=== PATIENT | male | born 1960 | race African-American/Black ===

== ENCOUNTER 2018-05-11 18:54 | Emergency (ER) | payer MEDICARE, OTHER ==
[~2018-05-11] VITALS: Ht 172.7 cm; Wt 113.7 kg
[~2018-05-11 18:54] MED LIST: CIPROFLOXACIN500 MG PO; FAMOTIDINE20 MG PO; FINASTERIDE5 MG PO; FLUCONAZOLE50 MG PO; METOPROLOL TART25 MG PO; MYCOPHENOLATE250 MG PO; OXYCODONE HCL5 MG PO; PREDNISONE5 MG PO; SIMETHICONE80 MG PO; TACROLIMUS1 MG PO; TAMSULOSIN HCL0.4 MG PO; TYLENOL EXTRA500 MG PO; VALGANCICLOVIR450 MG PO
[2018-05-11] MEDS ORDERED: LIPITOR10 MG PO (19:59)
[2018-05-11] MEDS ORDERED: VITAMIN D-32000 UNIT PO (19:59)
[2018-05-11] MEDS ORDERED: ALLOPURINOL100 MG PO (19:59)
[2018-05-11] MEDS ORDERED: SENSIPAR60 MG PO (20:00)
[2018-05-11] MEDS ORDERED: DILTIAZEM 24HR120 MG PO (20:01)
[2018-05-11] MEDS ORDERED: PROSCAR5 MG PO (20:01)
[2018-05-11] MEDS ORDERED: FLUCONAZOLE50 MG PO (20:02)
[2018-05-11] MEDS ORDERED: GLIPIZIDE ER5 MG PO (20:02)
[2018-05-11] MEDS ORDERED: PRINIVIL20 MG PO (20:03)
[2018-05-11] MEDS ORDERED: MAGNESIUM CHLOR64 MG PO (20:04)
[2018-05-11] MEDS ORDERED: METOPROLOL SUC100 MG PO (20:05)
[2018-05-11] MEDS ORDERED: PREDNISONE20 MG PO (20:06)
[2018-05-11] MEDS ORDERED: CELLCEPT250 MG PO (20:06)
[2018-05-11] MEDS ORDERED: OMEPRAZOLE20 MG PO (20:06)
[2018-05-11] MEDS ORDERED: PROGRAF1 MG PO (20:07)
[2018-05-11] MEDS ORDERED: FLOMAX0.4 MG PO (20:07)
--- NOTE | 2018-05-12 07:49 | EKG ---
[facility] [address] [facility] [place] [address] Signed Undetermined rhythm Nonspecific intraventricular conduction delay ST elevation, consider inferior injury or acute infarct ACUTE AK / STEMI Consider right ventricular involvement in acute inferior infarct Abnormal ECG When compared with ECG of 06-APR-2016 05:40, Significant changes have occurred Confirmed by JILLIAN SANDOVAL MD ([id number]) on 05/12/2018 7:49:17 AM Electronically Signed By: JILLIAN SANDOVAL MD 05/12/18 0749 PATIENT NAME: RERE WISDOM Electrocardiogram DATE OF : 58 PHYSICIAN: JILLIAN SANDOVAL MD REPORT #: [id number] REPORT IS CONFIDENTIAL AND NOT TO BE RELEASED WITHOUT AUTHORIZATION
== END 2018-05-11 22:25 | disposition home or self-care (01) ==
LOC: ED 18:54
DX: I47.1 Supraventricular tachycardia (principal); I10 Essential (primary) hypertension; E11.9 Type 2 diabetes mellitus without complications; N19 Unspecified kidney failure; Z94.0 Kidney transplant status; Z79.899 Other long term (current) drug therapy; Z79.84 Long term (current) use of oral hypoglycemic drugs; Z79.52 Long term (current) use of 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
CPT/HCPCS: 71045; 80053; 81001; 84100; 85025; 93005; 93010; 96361; 96374; 99284-25; J0153; J7030

== ENCOUNTER 2018-06-04 09:27 | Emergency (ER) | payer MEDICARE, OTHER ==
[~2018-06-04] VITALS: Ht 175.3 cm; Wt 111.6 kg
[~2018-06-04 09:27] MED LIST changes: +ALLOPURINOL100 MG PO; +CELLCEPT250 MG PO; +DILTIAZEM 24HR120 MG PO; +FLOMAX0.4 MG PO; +GLIPIZIDE ER5 MG PO; +LIPITOR10 MG PO; +MAGNESIUM CHLOR64 MG PO; +METOPROLOL SUC100 MG PO; +OMEPRAZOLE20 MG PO; +PREDNISONE20 MG PO; +PRINIVIL20 MG PO; +PROGRAF1 MG PO; +PROSCAR5 MG PO; +SENSIPAR60 MG PO; +VITAMIN D-32000 UNIT PO
--- OUTSIDE RECORDS SUMMARY | 2018-06-04 09:32 | XMS ---
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 E.DMaycol VISIT COUNT (12 MO.) 2 [facility]РИ[facility] [place] TOTAL 2 NOTE: Visits indicate total known visits. ED/UCC VISIT TRACKING (12 MO.) 06/04/2018 09:27 [facility] [place] TYPE: Emergency COMPLAINT: - FACE SWELLING/NO INJURY 05/11/2018 18:55 [facility] [place] TYPE: Emergency COMPLAINT: - KIDNEY PAIN DIAGNOSES: - residential (current) use of 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 - Type 2 diabetes mellitus without complications - Epigastric pain - Kidney transplant status - Other correction (current) drug therapy - Abdominal distension (gaseous) - Unspecified kidney failure - residential (current) use of oral hypoglycemic drugs - Supraventricular tachycardia - Essential (primary) hypertension INPATIENT VISIT TRACKING (12 MO.) No inpatient visits to display in this time frame [email or web address]
[2018-06-04] MEDS ORDERED: PENICILLIN V P500 MG PO (12:21)
== END 2018-06-04 12:58 | disposition home or self-care (01) ==
LOC: ED 09:27
DX: K04.7 Periapical abscess without sinus (principal); I12.9 Hypertensive chronic kidney disease with stage 1 through stage 4 chronic kidney disease, or unspecified chronic kidney disease; N19 Unspecified kidney failure; Z94.0 Kidney transplant status; E11.9 Type 2 diabetes mellitus without complications; Z79.52 Long term (current) use of 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; Z79.899 Other long term (current) drug therapy
CPT/HCPCS: 70486; 80053; 83605; 85025; 96374; 99283-25; J0690

== ENCOUNTER 2018-06-11 08:02 | Inpatient (IN) | payer MEDICARE, OTHER ==
[~2018-06-11] VITALS: Ht 175.3 cm; Wt 107.4 kg
[~2018-06-11 08:02] MED LIST changes: +PENICILLIN V P500 MG PO
--- OUTSIDE RECORDS SUMMARY | 2018-06-11 08:06 | XMS ---
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 05/16/2018-Current PHONE: [phone] Alphonse Stewart Current PHONE: Unknown FRANCISCO MITCHELL Primary Care Current PHONE: Unknown Lazaro has no Care Guidelines for this patient. E.DMaycol VISIT COUNT (12 MO.) 3 ЕКАТЕРИНА [place] TOTAL 3 NOTE: Visits indicate total known visits. ED/UCC VISIT TRACKING (12 MO.) 06/11/2018 08:03 [facility] [place] TYPE: Emergency COMPLAINT: - RACING HEART 06/04/2018 09:27 [facility] [place] TYPE: Emergency COMPLAINT: - FACE SWELLING/NO INJURY DIAGNOSES: - Type 2 diabetes mellitus without complications - Periapical abscess without sinus - Localized swelling, mass and lump, head - alf (current) use of 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 - Other oysterman (current) drug therapy - Hypertensive chronic kidney disease with stage 1 through stage 4 chronic kidney disease, or unspecified chronic kidney disease - Kidney transplant status - Unspecified kidney failure 05/11/2018 18:[address] [facility] [place] TYPE: Emergency COMPLAINT: - KIDNEY PAIN DIAGNOSES: - alf (current) use of 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 - Type 2 diabetes mellitus without complications - Epigastric pain - Kidney transplant status - Other oysterman (current) drug therapy - Abdominal distension (gaseous) - Unspecified kidney failure - alf (current) use of oral hypoglycemic drugs - Supraventricular tachycardia - Essential (primary) hypertension INPATIENT VISIT TRACKING (12 MO.) No inpatient visits to display in this time frame [email or web address]
[2018-06-11] MEDS ORDERED: TOPROL XL100 MG PO (11:23)
--- NOTE | 2018-06-11 15:52 | EKG ---
[facility] [address] [facility] [place] [address] Signed Sinus rhythm with premature atrial complexes Possible Left atrial enlargement Left ventricular hypertrophy Abnormal ECG When compared with ECG of 11-JUN-2018 08:06, (Unconfirmed) Significant changes have occurred Confirmed by JILLIAN SANDOVAL MD ([id number]) on 06/11/2018 3:52:16 PM Electronically Signed By: JILLIAN SANDOVAL MD 06/11/18 1552 PATIENT NAME: RERE WISDOM Electrocardiogram DATE OF : 58 PHYSICIAN: JILLIAN SANDVOAL MD REPORT #: [id number] REPORT IS CONFIDENTIAL AND NOT TO BE RELEASED WITHOUT AUTHORIZATION
--- NOTE | 2018-06-11 15:52 | EKG ---
[facility] [address] [facility] [place] [address] Signed Sinus tachycardia with short AL Nonspecific intraventricular block ST elevation, consider early repolarization, pericarditis, or injury Abnormal ECG When compared with ECG of 11-MAY-2018 19:16, Previous ECG has undetermined rhythm, needs review T wave inversion less evident in Lateral leads Confirmed by JILLIAN SANDOVAL MD ([id number]) on 06/11/2018 3:51:51 PM Electronically Signed By: JILLIAN SANDOVAL MD 06/11/18 1552 PATIENT NAME: RERE WISDOM Electrocardiogram DATE OF : 58 PHYSICIAN: JILLIAN SANDOVAL MD REPORT #: [id number] REPORT IS CONFIDENTIAL AND NOT TO BE RELEASED WITHOUT AUTHORIZATION
[2018-06-11] MEDS ORDERED: PREDNISONE5 MG PO (16:19)
== END 2018-06-12 12:30 | disposition home or self-care (01) | DRG 308 ==
LOC: ED 08:02 → CCU 14:44
PROVIDERS: ADMIT Internal Medicine
DX: I47.1 Supraventricular tachycardia (principal); N18.6 End stage renal disease; I16.1 Hypertensive emergency; Z94.0 Kidney transplant status; I24.8 Other forms of acute ischemic heart disease; I13.11 Hypertensive heart and chronic kidney disease without heart failure, with stage 5 chronic kidney disease, or end stage renal disease; E83.42 Hypomagnesemia; E11.9 Type 2 diabetes mellitus without complications; I27.20 Pulmonary hypertension, unspecified; R33.9 Retention of urine, unspecified; Z91.14 Patient's other noncompliance with medication regimen; Z79.84 Long term (current) use of oral hypoglycemic drugs; Z79.52 Long term (current) use of 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; Z79.899 Other long term (current) drug therapy
CPT/HCPCS: 36415; 80048; 80053; 83735; 84484; 85025; 93005; 93010; 96365; 96375; 96376; 99285-25; J1815; J3475; J7060; J7512

== ENCOUNTER 2019-05-09 22:13 | Inpatient (IN) | payer MEDICARE, OTHER ==
[~2019-05-09] VITALS: Ht 172.7 cm; Wt 100.2 kg
--- OUTSIDE RECORDS SUMMARY | ~2019-05-09 | XMS | Encounter Summary ---
Demographics + + + | Address | [address] | | | [place] [address] | + + + | Home Phone | | + + + | Preferred Language | Unknown | + + + | Marital Status | Single | + + + | Anabaptism Affiliation | Unknown | + + + | Race | Black or | + + + | Ethnic Group | Not or | + + + Author + + + | Author | [facility] | + + + | Organization | [facility] | + + + | Address | Unknown | + + + | Phone | Unavailable | + + + Support + + +---------+ + | Name | Relationship | Address | Phone | + + +---------+ + | Olesya Lamb | ECON | Unknown | | + + +---------+ + Care Team Providers + +------+ + | Care Oil Pipeline Operator Name | Role | Phone | + +------+ + | Oziel Michael MD | PCP | | + +------+ + Encounter Details +--------+ + + + + | Date | Type | Department | Care Team | Description | +--------+ + + + + | 04/04/ | Lab | LAB IMMUNOGENETIC | | | | 2018 | Requisition | [facility] | | | | | | [address] | | | | | | [place], | | | | | | [place] [address] | | | +--------+ + + + + Social History + +-------+ +--------+------+ | Tobacco Use | Types | Packs/Day | Years | Date | | | | | Used | | + +-------+ +--------+------+ | Never Smoker | | | | | + +-------+ +--------+------+ + +---+---+---+ | Smokeless Tobacco: | | | | | Never Used | | | | + +---+---+---+ + + +---------+ + | Alcohol Use | Drinks/Week | oz/Week | Comments | + + +---------+ + | No | | | | + + +---------+ + + + + | Sex Assigned at | Date Recorded | | | | + + + | Not on file | | + + + + + + + | Job Start Date | Occupation | Industry | + + + + | Not on file | Not on file | Not on file | + + + + + + + + | Travel History | Travel Start | Travel End | + + + + + + | No recent travel history available. | + + documented as of this encounter Plan of Treatment Not on filedocumented as of this encounter Procedures + +--------+ + + + | Procedure Name | Priori | Date/Time | Associated Diagnosis | Comments | | | ty | | | | + +--------+ + + + | CLASS I & II ID | Routin | 04/03/2018 | | Results for this | | | e | 12:00 AM | | procedure are in the | | | | PST | | results section. | + +--------+ + + + | LIT FLOW HLA II AB | Routin | 04/03/2018 | | | | AG ID, BLOOD | e | 12:00 AM | | | | | | PST | | | + +--------+ + + + | LIT FLOW HLA I AB AG | Routin | 04/03/2018 | | Results for this | | ID, BLOOD | e | 12:00 AM | | procedure are in the | | | | PST | | results section. | + +--------+ + + + documented in this encounter Results LIT FLOW HLA II AB AG ID, BLOOD (04/03/2018 12:00 AM PST) + + | Specimen | + + | Blood - Blood | | (substance) | + + + + + + + | Performing | Address | City/State/Zipcode | Phone Number | | Organization | | | | + + + + + | [facility] - | [address] | [place] [address] | | | IMMUNOGENETICS/TRANS | [address] | | | | [facility] | | | | + + + + + LIT FLOW HLA I AB AG ID, BLOOD (04/03/2018 12:00 AM PST) + + + + + + | Component | Value | Ref Range | Performed | Pathologist | | | | | At | Signature | + + + + + + | LABEL ONLY | Please see lab report | | [facility] - | | | - LIT | for result. | | IMMUNOGENET | | | | | | ICS/TRANSPL | | | | | | ANT | | | | | | LABORATORY | | + + + + + + + + | Specimen | + + | Blood - Blood | | (substance) | + + + + + + + | Performing | Address | City/State/Zipcode | Phone Number | | Organization | | | | + + + + + | [facility] - | [address] | [place] [address] | | | IMMUNOGENETICS/TRANS | [address] | | | | [facility] | | | | + + + + + documented in this encounter Visit Diagnoses Not on filedocumented in this encounter"
--- OUTSIDE RECORDS SUMMARY | ~2019-05-09 | XMS | Encounter Summary ---
Demographics + + + | Address | [address] | | | [place] [address] | + + + | Home Phone | | + + + | Preferred Language | Unknown | + + + | Marital Status | Unknown | + + + | Yarsanism Affiliation | Unknown | + + + | Race | Unknown | + + + | Ethnic Group | Unknown | + + + Author + + + | Author | [facility] | | | and [place] | + + + | Organization | [facility] | | | and [place] | + + + | Address | Unknown | + + + | Phone | Unavailable | + + + Support + + +---------+ + | Name | Relationship | Address | Phone | + + +---------+ + | Olesya Lamb | ECON | Unknown | | + + +---------+ + | Fannycedric Peace | ECON | Unknown | | + + +---------+ + Care Team Providers + +------+ + | Care Woodworking Machinist Name | Role | Phone | + +------+ + PCP | Unavailable | + +------+ + Encounter Details +--------+ + + + + | Date | Type | Department | Care Team | Description | +--------+ + + + + | 12/05/ | Orders Only | [facility] | Conversion | | | 2018 | | NEPRHOLOGY [place] | Transaction, | | | | | [address] | Provider Unknown | | | | | [address] [place], [place] | | | | | | [address] | | | | | | [phone] | | | +--------+ + + + + Social History + +-------+ +--------+------+ | Tobacco Use | Types | Packs/Day | Years | Date | | | | | Used | | + +-------+ +--------+------+ | Never Smoker | | | | | + +-------+ +--------+------+ + + + | Sex Assigned at [...] as of this encounter Plan of Treatment +--------+---------+ + + + | Date | Type | Specialty | Care Team | Description | +--------+---------+ + + + | 05/20/ | Office | Nephrology | Alexx Gutierrez MD | | | 2019 | Visit | | [address] [facility] | | | | | | [address] [place], [place] | | | | | | [address] | | | | | | | | +--------+---------+ + + + documented as of this encounter Procedures + +--------+ + + + | Procedure Name | Priori | Date/Time | Associated Diagnosis | Comments | | | ty | | | | + +--------+ + + + | EXTERNAL LAB: | Routin | 12/05/2018 | | Results for this | | TACROLIMUS LEVEL, | e | 12:00 AM | | procedure are in the | | LC-MS/MS | | PDT | | results section. | + +--------+ + + + documented in this encounter Results External Lab: Tacrolimus Level, LC-MS/MS (12/05/2018 12:00 AM PDT) + +-------+ + + + | Component | Value | Ref Range | Performed | Pathologist | | | | | At | Signature | + +-------+ + + + | Tacrolimus | 8.0 | | EXTERNAL | | | Level | | | LAB | | + +-------+ + + + | Date of | | | EXTERNAL | | | Last Dose | | | LAB | | + +-------+ + + + | Time of | | | EXTERNAL | | | Last Dose | | | LAB | | + +-------+ + + + + + | Specimen | + + | Blood specimen | | (specimen) | + + + +---------+ + + | Performing | Address | City/State/Zipcode | Phone Number | | Organization | | | | + +---------+ + + | EXTERNAL LAB | | | | + +---------+ + + documented in this encounter Visit Diagnoses Not on filedocumented in this encounter"
--- OUTSIDE RECORDS SUMMARY | ~2019-05-09 | XMS | Encounter Summary ---
Demographics + + + | Address | [address] | | | [place] [address] | + + + | Home Phone | | + + + | Preferred Language | Unknown | + + + | Marital Status | Unknown | + + + | Advent Affiliation | Unknown | + + + | Race | Unknown | + + + | Ethnic Group | Unknown | + + + Author + + + | Author | [facility] | | | and [place] | + + + | Organization | [facility] | | | and [...] Team Providers + +------+ + | Care Waterside Worker Name | Role | Phone | + +------+ + PCP | Unavailable | + +------+ + Encounter Details +--------+ + + + + | Date | Type | Department | Care Team | Description | +--------+ + + + + | 08/07/ | Orders Only | [facility] | Alexx Gutierrez MD | | | 2018 | | NEPHROLOGY [place] | [address] [place] | | | | | [address] [place] | [address] [place], [place] | | | | | [address] [place], [place] | [address] | | | | | [address] | | | | | | [phone] | | | +--------+ + + + + Social History + +-------+ +--------+------+ | Tobacco Use | Types | Packs/Day | Years | Date | | | | | Used | | + +-------+ +--------+------+ | Never Assessed | | | | | + +-------+ [...] 2019 | Visit | | [address] [facility] | | | | | | [address] [facility] | | | | | | [address] | | | | | | | | +--------+---------+ + + + documented as of this encounter Procedures + +--------+ + + + | Procedure Name | Priori | Date/Time | Associated Diagnosis | Comments | | | ty | | | | + +--------+ + + + | EXTERNAL LAB: CBC | Routin | 08/07/2018 | | Results for this | | | e | 9:43 AM | | procedure are in the | | | | PDT | | results section. | + +--------+ + + + | RENAL FUNCTION PANEL | Routin | 08/07/2018 | | Results for this | | | e | 9:43 AM | | procedure are in the | | | | PDT | | results section. | + +--------+ + + + documented in this encounter Results External Lab: CBC (08/07/2018 9:43 AM PDT) + + + + + + | Component | Value | Ref Range | Performed | Pathologist | | | | | At | Signature | + + + + + + | WBC | 2.8 (A) | 4.5 - 11.0 10 | EXTERNAL | | | | | | LAB | | + + + + + + | RED CELL | 4.69 | 4.3 - 5.7 10 | EXTERNAL | | | COUNT | | | LAB | | + + + + + + | Hgb | 12.8 (A) | 13.5 - 18.0 | EXTERNAL | | | | | g/dL | LAB | | + + + + + + | Hematocrit, | 40.0 (A) | 41 - 50 % | EXTERNAL | | | POC | | | LAB | | + + + + + + | MCV | 85.4 | 81 - 99 fL | EXTERNAL | | | | | | LAB | | + + + + + + | MCH | 27 | 27 - 33 pg | EXTERNAL | | | | | | LAB | | + + + + + + | MCHC | 32 | 30 - 36 g/dL | EXTERNAL | | | | | | LAB | | + + + + + + | Platelet | 175 | 140 - 440 K/ L | EXTERNAL | | | Count | | | LAB | | | Plasma | | | | | + + + + + + | RDW-CV | 15.6 (A) | 10.5 - 15.0 % | EXTERNAL | | | | | | LAB | | + + + + + + | MPV | | fL | EXTERNAL | | | | | | LAB | | + + + + + + | Differentia | | | EXTERNAL | | | l Type | | | LAB | | + + + + + + | % Segmented | 43.3 | 39 - 80 % | EXTERNAL | | | | | | LAB | | | Neutrophils | | | | | + + + + + + | % | 41.4 | 24 - 44 % | EXTERNAL | | | Lymphocytes | | | LAB | | + + + + + + | % Monocytes | 12.7 (A) | 0 - 12 % | EXTERNAL | | | | | | LAB | | + + + + + + | % | 1.4 | 0 - 6 % | EXTERNAL | | | Eosinophils | | | LAB | | + + + + + + | % Basophils | 1.2 | 0 - 2 % | EXTERNAL | | | | | | LAB | | + + + + + + | Absolute | | / L | EXTERNAL | | | Segmented | | | LAB | | | Neutrophils | | | | | + + + + + + | Absolute | | / L | EXTERNAL | | | Lymphocytes | | | LAB | | + + + + + + | Absolute | | / L | EXTERNAL | | | Monocytes | | | LAB | | + + + + + + | Absolute | | / L | EXTERNAL | | | Eosinophils | | | LAB | | + + + + + + | Absolute | | / L | EXTERNAL | | | Basophils | | | LAB | | + + + + + + + + | Specimen | + + | Blood specimen | | (specimen) | + + + +---------+ + + | Performing | Address | City/State/Zipcode | Phone Number | | Organization | | | | + +---------+ + + | EXTERNAL LAB | | | | + +---------+ + + Renal Function Panel (08/07/2018 9:43 AM PDT) + + + + + + | Component | Value | Ref Range | Performed | Pathologist | | | | | At | Signature | + + + + + + | Glucose, | 154 (A) | 70 - 100 mg/dL | EXTERNAL | | | Fasting | | | LAB | | + + + + + + | BUN | 27 (A) | 6 - 23 mg/dL | EXTERNAL | | | | | | LAB | | + + + + + + | Creatinine | 1.48 (A) | 0.70 - 1.33 | EXTERNAL | | | | | mg/dL | LAB | | + + + + + + | PHOSPHORUS | 3.7 | 2.5 - 5.0 mg/dL | EXTERNAL | | | | | | LAB | | + + + + + + | Albumin | 3.2 (A) | 3.5 - 5.0 | EXTERNAL | | | | | | LAB | | + + + + + + | Na | 140 | 132 - 143 | EXTERNAL | | | | | mmol/L | LAB | | + + + + + + | K | 4.3 | 3.6 - 5.1 | EXTERNAL | | | | | mmol/L | LAB | | + + + + + + | Cl | 104 | 95 - 112 mmol/L | EXTERNAL | | | | | | LAB | | + + + + + + | CO2 | 25 | 19 - 31 mmol/L | EXTERNAL | | | | | | LAB | | + + + + + + | Anion Gap | 15.3 | 7 - 21 mmol/L | EXTERNAL | | | | | | LAB | | + + + + + + | eGFR if not | | | EXTERNAL | | | | | | LAB | | | BURMESE | | | | | + + + + + + | Phosphorus, | | | EXTERNAL | | | Inorganic | | | LAB | | + + + + + + | BUN/Creatin | 18.2 | 6.0 - 28.6 | EXTERNAL | | | ine Ratio | | | LAB | | + + + + + + | Calcium | 8.3 (A) | 8.5 - 10.3 | EXTERNAL | | | | | mg/dL | LAB | | + + + + + + | Estimated | 49 (A) | 60 - 140 mg/dL | EXTERNAL | | | GFR | | | LAB | | + + + + + [...]
--- OUTSIDE RECORDS SUMMARY | ~2019-05-09 | XMS | Encounter Summary ---
Demographics + + + | Address | [address] | | | [place] [address] | + + + | Home Phone | | + + + | Preferred Language | Unknown | + + + | Marital Status | Unknown | + + + | Temple Affiliation | Unknown | + + + | Race | Unknown | + + + | Ethnic Group | Unknown | + + + Author + + + | Author | [facility] | | | and [place] | + + + | Organization | [facility] | | | and [place] | + + + | Address | Unknown | + + + | Phone | Unavailable | + + + Support + + +---------+ + | Name | Relationship | Address | Phone | + + +---------+ + | Olesyacedric Lamb | ECON | Unknown | | + + +---------+ + | Fanny Peace | ECON | Unknown | | + + +---------+ + Care Team Providers + +------+ + | Care Train Controller Name | Role | Phone | + +------+ + | Oziel Michael MD | PCP | | + +------+ + Reason for Visit + + + | Reason | Comments | + + + | Medication Refill | | + + + Encounter Details +--------+--------+ + + + | Date | Type | Department | Care Team | Description | +--------+--------+ + + + | 03/06/ | Refill | [facility] | Alexx Gutierrez MD | Medication Refill | | 2019 | | NEPHROLOGY [place] | [address] [facility] | | | | | [address] [facility] | [address] [place], [place] | | | | | [facility] [address] | [phone] | | | | | [place], [place] | | | | | | [address] | | | | | | [phone] | | | +--------+--------+ + + + Social History + +-------+ [...] Comments | + + +---------+ + | Not Currently | | | | + + +---------+ [...] | Alexx Gutierrez MD | | | 2020 | Visit | | [address] [facility] | | | | | | [address] [place] | | | | | | [address] | | | | | | | | +--------+---------+ + + + documented as of this encounter Visit Diagnoses + + | Diagnosis | + + | Essential hypertension, benign - Primary | + + | Persistent proteinuria Proteinuria | + + | Kidney replaced by transplant | + + | CKD (chronic kidney disease), stage III (HCC) Chronic kidney disease, Stage III | | (moderate) | + + | Immunosuppression (HCC) Unspecified disorder of immune mechanism | + + | Immunosuppressive management encounter following kidney transplant Encounter for | | long-term (current) use of other medications | + + documented in this encounter"
--- OUTSIDE RECORDS SUMMARY | ~2019-05-09 | XMS | Encounter Summary ---
Demographics + + + | Address | [address] | | | [place] [address] | + + + | Home Phone | | + + + | Preferred Language | Unknown | + + + | Marital Status | Single | + + + | Denominational Affiliation | Unknown | + + + | Race | Black or | + + + | Ethnic Group | Not or | + + + Author + + + | Author | [facility] | + + + | Organization | [facility] | + + + | Address | Unknown | + + + | Phone | Unavailable | + + + Support + + +---------+ + | Name | Relationship | Address | Phone | + + +---------+ + | Olesya Lamb | ECON | Unknown | | + + +---------+ + Care Team Providers + +------+ + | Care Magazine Worker Name | Role | Phone | + +------+ + | Oziel Michael MD | PCP | | + +------+ + Encounter Details +--------+ + + + + | Date | Type | Department | Care Team | Description | +--------+ + + + + | 09/17/ | Ancillary | LAB IMMUNOGENETIC | | | | 2012 | Orders | [facility] TRANSPLANT LAB | | | | | | [address] | | | | | | [address] [place], | | | | | | [place] [address] | | | +--------+ + + + [...] + + + | LIT FLOW HLA AB PRA | Routin | 09/17/2012 | | | | SCREEN I/II | e | 3:39 PM | | | | | | PDT | | | + +--------+ + + + documented in this encounter Results LIT FLOW HLA AB PRA SCREEN I/II (09/17/2012 3:39 PM PDT) + + | Specimen | + + | Blood - Blood | + + + + + + + | Performing | Address | City/State/Zipcode | Phone Number | | Organization | | | | + + + + + | [facility] - | [address] | [place] [address] | | | IMMUNOGENETICS/TRANS | [address] | | | | [facility] | | | | + + + + + documented in this encounter Visit Diagnoses Not on filedocumented in this encounter"
--- OUTSIDE RECORDS SUMMARY | ~2019-05-09 | XMS | Encounter Summary ---
Demographics + + + | Address | [address] | | | [place] [address] | + + + | Home Phone | | + + + | Preferred Language | Unknown | + + + | Marital Status | Unknown | + + + | Pentecostal Affiliation | Unknown | + + + | Race | Unknown | + + + | Ethnic Group | Unknown | + + + Author + + + | Author | [facility] | | | and [place] | + + + | Organization | [facility] | | | [...] Team Providers + +------+ + | Care Commercial Mortgage Broker Name | Role | Phone | + +------+ + PCP | Unavailable | + +------+ + Encounter Details +--------+ + + + + | Date | Type | Department | Care Team | Description | +--------+ + + + + | 11/05/ | Hospital | [facility] | Leonardo Dickey MD | ESRD (end stage | | 2014 | Encounter | [facility] | [address] | renal disease) ([facility]) | | | | [address] | [place], [place] | | | | | [place], [place] | [address] | | | | | [address] | [phone] | | | | | [phone] | | | +--------+ + + + [...] + + documented as of this encounter Medications at Time of Discharge + + + +---------+ + + | Medication | Sig | Dispensed | Refills | Start | End Date | | | | | | Date | | + + + +---------+ + + | Cholecalciferol | Take 1 tablet by | | 0 | 05/24/19 | | | (VITAMIN D-3 PO) | mouth. | | | 12 | | + + + +---------+ + + documented as of this encounter Progress Notes Conversion Transaction, Provider Unknown - 11/05/2013 6:10 PM PDTFormatting of this note m ight be different from the original. Progress Notes by Claritza Brizuela RN at 11/05/131809 Author: Claritza Brizuela RN Service: (none) Author Type: Registered Nurse Filed: 11/05/131816 Date of Service: 11/05/131809 Status: Signed [employer]: Claritza Brizuela RN (Registered Nurse) All belongings taken with patient. Home via private vehicle with friend. FELICIANO Vanegas onver svitlana Transaction, Provider Unknown - 11/05/2013 5:51 PM PDT Progress Notes by Claritza Brizuela RN at 11/05/131750 Author: Claritza Brizuela RN Service: (none) Author Type: Registered Nurse Filed: 11/05/131813 Date of Service: 11/05/131750 Status: Signed [employer]: Claritza Wand, RN (Registered Nurse) Reviewed discharge instructions, SILVIA drain care and prescriptions with patient and friend. P atient and friend verbalized understanding and discharge instructions were signed. FELICIANO Vanegas onver svitlana Puente, Provider Unknown - 11/05/2013 5:33 PM PDT Progress Notes by Stephanie Coleman RPH at 11/05/131732 Author: Stephanie Coleman RPH Service: (none) Author Type: Pharmacist Filed: 11/05/131732 Date of Service: 11/05/131732 Status: Signed [employer]: Stephanie Coleman RPH (Pharmacist) Clinical Pharmacy Note: Renal Monitoring Hillister Desmet 53 y.o. male Ht Readings from Last 1 Encounters: 11/05/13 1.727 m (5' 8") Wt Readings from Last 1 Encounters: 11/05/13 99.1 kg (218 lb 7.6 oz) Patient is on hemodialysis. Pharmacy dosing for renal function per Dr. Dickey. Currently, there are no medications needing to be adjusted. Pharmacy will continue to monit or for changes in medication orders and adjust accordingly. Stephanie Coleman RPh 11/05/2013 5:33 PM docume nted in this encounter Plan of Treatment +--------+---------+ + + + | Date | Type | Specialty | Care Team | Description | +--------+---------+ + + + | 05/20/ | Office | Nephrology | Alexx Gutierrez MD | | | 2020 | [facility] | | [address] [facility] | | | | | [address] [place], [place] | | | | | | [address] | | | | | | | | +--------+---------+ + + + documented as of this encounter Procedures + +--------+ + + + | Procedure Name | Priori | Date/Time | Associated Diagnosis | Comments | | | ty | | | | + +--------+ + + + | TISSUE REQUEST FOR | Routin | 11/06/2013 | | Results for this | | PATHOLOGY (NON-ORD) | e | 12:00 AM | | procedure are in the | | | | PDT | | results section. | + +--------+ + + + | TYPE AND SCREEN | Routin | 11/05/2013 | | Results for this | | | e | 2:15 PM | | procedure are in the | | | | PDT | | results section. | + +--------+ + + + | BASIC METABOLIC | Routin | 11/05/2013 | | Results for this | | PANEL | e | 2:15 PM | | procedure are in the | | | | PDT | | results section. | + +--------+ + + + documented in this encounter Results Tissue Request For Pathology (11/06/2013 12:00 AM PDT) + + | Specimen | + + | | + + + + + | Narrative | Performed At | + + + | SPECIMEN(S): A Lt. STENOSED CEPHALIC VEIN SPECIMEN SOURCE: A. | EXTERNAL LAB | | Lt. STENOSED CEPHALIC VEIN CLINICAL HISTORY: 11/05/2013 at [address]. | | | Narrowing left AV fistula. FINAL PATHOLOGIC DIAGNOSIS: Left cephalic | | | vein: - Stenotic vessel secondary to marked atherosclerosis with | | | calcification. - Metallic stent present in the lumen BES:mdm | | | GROSS DESCRIPTION: Specimen is received in formalin designated "left | | | stented cephalic vein" and consists of a 6.2 x 0.8 cm vessel. The | | | external surface is pink, roughened and transparent exposing an | | | underlying metallic stent that extends the length of the specimen. | | | The lumen ranges in diameter from 0.2 cm up to 0.5 cm. | | | Sergeant Missile Crewman sections are submitted in cassette (A1). FM | | | MICROSCOPIC EXAMINATION: Histologic sections of all submitted blocks | | | are examined by light microscopy. These findings, together with the | | | gross examination, support the pathologic diagnosis. PERFORMING | | | LABORATORY: Professional interpretation and technical preparation was | | | performed by [facility], [facility], [facility] | | | [place] [address] (Industrial Psychology Teacher: Bashir | | | Chantel Delacruz; [facility]#: [id number]). Diagnostician: Bashir Delacruz | | | Pathologist Electronically Signed 11/08/2013 | | + + + + +---------+ + + | Performing | Address | City/State/Zipcode | Phone Number | | Organization | | | | + +---------+ + + | EXTERNAL LAB | | | | + +---------+ + + Type and Screen (11/05/2013 2:15 PM PDT) + + + + + + | Component | Value | Ref Range | Performed | Pathologist | | | | | At | Signature | + + + + + + | ABO Rh | O POSITIVE | | EXTERNAL | | | | | | LAB | | + + + + + + | ABO Rh | Testing performed at | | EXTERNAL | | | | [facility] | | LAB | | | | [address];[place] [address] | | | | + + + + + + | Antibody | NEGATIVE | | EXTERNAL | | | Screen | | | LAB | | + + + + + + | Antibody | Testing performed at | | EXTERNAL | | | Screen | [facility];[address] | | LAB | | | | [address];[place] [address] | | | | + + + + + + | BB BAND | [id number] | | EXTERNAL | | | | | | LAB | | + + + + + + | BB BAND | Testing performed at | | EXTERNAL | | | | [facility];[address] | | LAB | | | | [address];[place] [address] | | | | + + + + + + + + | Specimen | + + | Blood specimen | | (specimen) | + + + +---------+ + + | Performing | Address | City/State/Zipcode | Phone Number | | Organization | | | | + +---------+ + + | EXTERNAL LAB | | | | + +---------+ + + Basic Metabolic Panel (11/05/2013 2:15 PM PDT) + + + + + + | Component | Value | Ref Range | Performed | Pathologist | | | | | At | Signature | + + + + + + | Na | 143Comment: Testing | 135 - 143 | EXTERNAL | | | | performed at [facility];[address] | mmol/L | LAB | | | | [address];[place] | | | | | | [address] | | | | + + + + + + | K | 3.6Comment: Testing | 3.5 - 4.9 | EXTERNAL | | | | performed at [facility];[address] | mmol/L | LAB | | | | [address];[place] | | | | | | [address] | | | | + + + + + + | Cl | 107Comment: Testing | 99 - 109 mmol/L | EXTERNAL | | | | performed at [facility];[address] | | LAB | | | | [address];[place] | | | | | | [address] | | | | + + + + + + | CO2 | 29Comment: Testing | 23 - 32 mmol/L | EXTERNAL | | | | performed at [facility];[address] | | LAB | | | | [address];[place] | | | | | | [address] | | | | + + + + + + | Anion Gap | 11Comment: Testing | 5 - 20 mmol/L | EXTERNAL | | | | performed at [facility];[address] | | LAB | | | | [address];[place] | | | | | | [address] | | | | + + + + + + | Glucose, | 74Comment: Testing | 65 - 99 mg/dL | EXTERNAL | | | Fasting | performed at [facility];[address] | | LAB | | | | [address];[place] | | | | | | [address] | | | | + + + + + + | BUN | 35 (H)Comment: Testing | 8 - 25 mg/dL | EXTERNAL | | | | performed at [facility];[address] | | LAB | | | | [address];[place] | | | | | | [address] | | | | + + + + + + | Creatinine | 10.12 (H)Comment: | 0.70 - 1.30 | EXTERNAL | | | | Testing performed at | mg/dL | LAB | | | | [facility];[address] | | | | | | [address];[place] [address] | | | | + + + + + + | BUN/Creatin | 4Comment: Testing | | EXTERNAL | | | ine Ratio | performed at [facility];[address] | | LAB | | | | [address];[place] | | | | | | [address] | | | | + + + + + + | Calcium | 8.1 (L)Comment: Testing | 8.5 - 10.2 | EXTERNAL | | | | performed at [facility];888 | mg/dL | LAB | | | | [address];[place] | | | | | | [address] | | | | + + + + + + | Estimated | 6 (L)Comment: GFR <60: | mL/min/1.73m2 | EXTERNAL | | | GFR | CHRONIC KIDNEY DISEASE, | | LAB | | | | IF FOUND OVER A 3 MONTH | | | | | | PERIOD.GFR <15: KIDNEY | | | | | | FAILURE.FOR | | | | | | AMERICANS, MULTIPLY THE | | | | | | CALCULATED GFR BY | | | | | | 1.210.Testing performed | | | | | | at [facility];[address] | | | | | | [address];[place] [address] | | | | + + + [...] + documented in this encounter Visit Diagnoses + + | Diagnosis | + + | ESRD (end stage renal disease) (HCC) End stage renal disease | + + documented in this encounter
--- OUTSIDE RECORDS SUMMARY | ~2019-05-09 | XMS | Clinical Summary ---
Demographics + + + | Address | [address] | | | [place] [address] | + + + | Home Phone | | + + + | Preferred Language | Unknown | + + + | Marital Status | Single | + + + | Jainism Affiliation | Unknown | + + + | Race | Black or | + + + | Ethnic Group | Not or | + + + Author + + + | Author | [facility] | + + + | Organization | [facility] | + + + | Address | Unknown | + + + | Phone | Unavailable | + + + Support + + +---------+ + | Name | Relationship | Address | Phone | + + +---------+ + | Olesya Lamb | ECON | Unknown | | + + +---------+ + Care Team Providers + +------+ + | Care Surgeon Assistant Name | Role | Phone | + +------+ + | Oziel Michael MD | PCP | | + +------+ + Source Comments MARK is fully live on both [facility] and [facility] Allergies No Known Allergies Medications + + + +---------+------+------+-------+ | Medication | Sig | Dispensed | Refills | Star | End | Statu | | | | | | t | Date | s | | | | | | Date | | | + + + +---------+------+------+-------+ | tacrolimus 1 mg | Take by mouth. | | 0 | 12/3 | | Activ | | oral capsule | | | | 1/20 | | e | | | | | | 16 | | | + + + +---------+------+------+-------+ | mycophenolate 250 | Take by mouth. | | 0 | 12/2 | | Activ | | mg oral capsule | | | | 7/20 | | e | | | | | | 16 | | | + + + +---------+------+------+-------+ | CINACALCET HCL | Take by mouth. | | 0 | | | Activ | | (SENSIPAR ORAL) | | | | | | e | + + + +---------+------+------+-------+ | FINASTERIDE | Take by mouth. | | 0 | | | Activ | | (PROSCAR ORAL) | | | | | | e | + + + +---------+------+------+-------+ | METOPROLOL | Take by mouth. | | 0 | | | Activ | | SUCCINATE (TOPROL XL | | | | | | e | | ORAL) | | | | | | | + + + +---------+------+------+-------+ | PREDNISONE ORAL | Take by mouth. 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 | + + + | Dyslipidemia | 05/30/2016 | + + + | Elevated ferritin level | 05/30/2016 | + + + | Other mcc (current) drug therapy | 05/30/2016 | + + + | Simple obesity | 05/30/2016 | + + + | Proteinuria | 05/30/2016 | + + + | Secondary hyperparathyroidism | 05/30/2016 | + + + | Vitamin D deficiency | 05/30/2016 | + + + | End-stage renal disease | 01/01/2016 | + + + | Benign essential hypertension | 01/01/2016 | + + + | Elevated troponin I level | 01/01/2016 | + + + Encounters +--------+ + + + + | Date | Type | Specialty | Care Team | Description | +--------+ + + + + | 04/01/ | Lab | | | | | 2019 | Requisition | | | | +--------+ + + + + from Last 3 Months Social History + +-------+ +--------+------+ | Tobacco [...] recent travel history available. | + + Last Filed Vital Signs Not on file Plan of Treatment + + + + + | Health Maintenance | Due Date | Last Done | Comments | + + + + + | Pneumococcal | | | | | vaccination (1 of 3 | 6 | | | | - PCV13) | | | | + + + + + | Influenza (Flu) | | | | | vaccination (#1) | 9 | | | + + + + + Procedures + +--------+ + + + | Procedure Name | Priori | Date/Time | Associated Diagnosis | Comments | | | ty | | | | + +--------+ + + + | LIT FLOW HLA II AB | Routin | 03/26/2019 | | | | AG ID, BLOOD | e | 12:00 AM | | | | | | PST | | | + +--------+ + + + | LIT FLOW HLA I AB AG | Routin | 03/26/2019 | | Results for this | | ID, BLOOD | e | 12:00 AM | | procedure are in the | | | | PST | | results section. | + +--------+ + + + | CLASS I & II ID | Routin | 03/26/2019 | | Results for this | | | e | 12:00 AM | | procedure are in the | | | | PST | | results section. | + +--------+ + + + from Last 3 Months Results LIT FLOW HLA II AB AG ID, BLOOD (03/26/2019 12:00 AM PST) + + | Specimen | + + | Blood - Blood | | (substance) | + + + + + + + | Performing | Address | City/State/Zipcode | Phone Number | | Organization | | | | + + + + + | [facility] - | [address] | [place] [address] | | | IMMUNOGENETICS/TRANS | [address] | | | | [facility] | | | | + + + + + LIT FLOW HLA I AB AG ID, BLOOD (03/26/2019 12:00 AM PST) + + + + [...] + + | [facility] - | [address] | [place] [address] | | | IMMUNOGENETICS/TRANS | [address] | | | | [facility] | | | | + + + + + from Last 3 Months Insurance + +--------+ +--------+ + +--------+ | Payer | Benefi | Subscriber | Effect | Phone | Address | Type | | | t Plan | ID | jayna | | | | | | / | | Dates | | | | | | Group | | | | | | + +--------+ +--------+ + +--------+ | MEDICARE | MEDICA | xxxxxxxxxx | 01/14/20 | [phone] | [address] | [address] | | | RE A & | | 11-Pre | 1 | [phone] | re | | | B | | sent | | [place] | | | | | | | | [phone] | | + +--------+ +--------+ + +--------+ | [place]ICAID [place] | OHP | xxxxxxxx | | [phone] | [address] | [address] | | | PLUS | | [phone] | id | | | OPEN | | esent | | [place] | | | | CARD | | | | [id number] | | + +--------+ +--------+ + +--------+ + +--------+ +--------+ + + | Guarantor Name | Accoun | Relation to | Date | Phone | Billing Address | | | t Type | Patient | of | | | | | | | | | | + +--------+ +--------+ + + | Nik Ma | Person | Self [birth year] | [address] | | | al/Fam | | 1961 | [phone] | [place] | | | [place] | | | [address] (Home) | [phone] | + +--------+ +--------+ + +"
--- OUTSIDE RECORDS SUMMARY | ~2019-05-09 | XMS | Encounter Summary ---
Demographics + + + | Address | [address] | | | [place] [address] | + + + | Home Phone | | + + + | Preferred Language | Unknown | + + + | Marital Status | Unknown | + + + | Protestant Affiliation | Unknown | + + + | Race | Unknown | + + + | Ethnic Group | Unknown | + + + Author + + + | Author | [facility] | | | and [place] | + + + | Organization | [facility] | | | [...] Team Providers + +------+ + | Care Vegetable Specker Name | Role | Phone | + +------+ + | Oziel Michael MD | PCP | | + +------+ + Encounter Details +--------+ + + + + | Date | Type | Department | Care Team | Description | +--------+ + + + + | 03/22/ | Orders Only | [facility] | Alexx Gutierrez MD | | | 2016 | | NEPRHOLOGY [place] | [address] | | | | | [address] | [address] [place], [place] | | | | | [address] [place], [place] | [address] | | | | | [address] | | | | | | [phone] | | | +--------+ + + + [...] 2020 | Visit | | [address] [facility] [address] | | | | | | [address] [place] | | | | | | [address] | | | | | | | | +--------+---------+ + + + documented as of this encounter Procedures + +--------+ + + + | Procedure Name | Priori | Date/Time | Associated Diagnosis | Comments | | | ty | | | | + +--------+ + + + | EXTERNAL LAB: | Routin | 03/22/2017 | | Results for this | | TACROLIMUS LEVEL, | e | 8:10 AM | | procedure are in the | | LC-MS/MS | | PST | | results section. | + +--------+ + + + | EXTERNAL LAB: CBC | Routin | 03/22/2017 | | Results for this | | | e | 8:10 AM | | procedure are in the | | | | PST | | results section. | + +--------+ + + + | URINALYSIS WITH | Routin | 03/22/2017 | | Results for this | | MICROSCOPIC IF | e | 8:10 AM | | procedure are in the | | INDICATED | | PST | | results section. | + +--------+ + + + | ALT | Routin | 03/22/2017 | | Results for this | | | e | 8:10 AM | | procedure are in the | | | | PST | | results section. | + +--------+ + + + | PROTEIN/CREATININE | Routin | 03/22/2017 | | Results for this | | RATIO, URINE | e | 8:10 AM | | procedure are in the | | | | PST | | results section. | + +--------+ + + + | BK VIRUS, NAAT, | Routin | 03/22/2017 | | Results for this | | URINE, QUANT | e | 8:10 AM | | procedure are in the | | | | PST | | results section. | + +--------+ + + + | AST | Routin | 03/22/2017 | | Results for this | | | e | 8:10 AM | | procedure are in the | | | | PST | | results section. | + +--------+ + + + | PARATHYROID HORMONE, | Routin | 03/22/2017 | | Results for this | | INTACT | e | 8:10 AM | | procedure are in the | | | | PST | | results section. | + +--------+ + + + | MAGNESIUM | Routin | 03/22/2017 | | Results for this | | | e | 8:10 AM | | procedure are in the | | | | PST | | results section. | + +--------+ + + + | CK TOTAL | Routin | 03/22/2017 | | Results for this | | | e | 8:10 AM | | procedure are in the | | | | PST | | results section. | + +--------+ + + + | RENAL FUNCTION PANEL | Routin | 03/22/2017 | | Results for this | | | e | 8:10 AM | | procedure are in the | | | | PST | | results section. | + +--------+ + + + documented in this encounter Results External Lab: Tacrolimus Level, LC-MS/MS (03/22/2017 8:10 AM PST) + +-------+ + + + | Component | Value | Ref Range | Performed | Pathologist | | | | | At | Signature | + +-------+ + + + | Tacrolimus | 6.4 | | EXTERNAL | | | Level [...] | | | + +---------+ + + Protein/Creatinine Ratio, Urine (03/22/2017 8:10 AM PST) + + + + + + | Component | Value | Ref Range | Performed | Pathologist | | | | | At | Signature | + + + + + + | Protein/Cre | 405.9 (A) | 0 - 150 | EXTERNAL | | | at Ratio | | | LAB | | + + + + + + + + | Specimen | + + | Urine specimen | | (specimen) | + + + +---------+ + + | Performing | Address | City/State/Zipcode | Phone Number | | Organization | | | | + +---------+ + + | EXTERNAL LAB | | | | + +---------+ + + BK Virus, NAAT, Urine, Quant (03/22/2017 8:10 AM PST) + + | Specimen | + + | Urine specimen | | (specimen) | + + + + + | Narrative | Performed At | + + + | BK Quant Source: Whole Blood BK Quant copy/mL: <390 BK Quant log: | EXTERNAL LAB | | <2.6 BK Quant Interpretive: Not Detected | | + + + + +---------+ + + | Performing | Address | City/State/Zipcode | Phone Number | | Organization | | | | + +---------+ + + | EXTERNAL LAB | | | | + +---------+ + + Urinalysis with Microscopic if Indicated (03/22/2017 8:10 AM PST) + + + + + + | Component | Value | Ref Range | Performed | Pathologist | | | | | At | Signature | + + + + + + | Color | Yellow | | EXTERNAL | | | | | | LAB | | + + + + + + | Clarity | Clear | | EXTERNAL | | | | | | LAB | | + + + + + + | Spec Grav, | 1.021 | 1.005 - 1.030 | EXTERNAL | | | Fluid | | | LAB | | + + + + + + | Leukocyte | Negative | | EXTERNAL | | | Esterase, | | | LAB | | | Urine | | | | | + + + + + + | Nitrite, | Negative | | EXTERNAL | | | Urine | | | LAB | | + + + + + + | Urobilinoge | Normal | | EXTERNAL | | | n, Urine | | | LAB | | + + + + + + | Total | 75 | | EXTERNAL | | | Protein | | | LAB | | + + + + + + | pH, Urine | 7 | 5 - 9 | EXTERNAL | | | | | | LAB | | + + + + + + | Blood, | Negative | | EXTERNAL | | | Urine | | | LAB | | + + + + + + | Ketones | Negative | | EXTERNAL | | | | | | LAB | | + + + + + + | Bilirubin, | Negative | | EXTERNAL | | | Urine | | | LAB | | + + + + + + | Glucose, | Negative | | EXTERNAL | | | Urine | | | LAB | | + + + + + + + + | Specimen | + + | Urine specimen | | (specimen) | + + + +---------+ + + | Performing | Address | City/State/Zipcode | Phone Number | | Organization | | | | + +---------+ + + | EXTERNAL LAB | | | | + +---------+ + + External Lab: CBC (03/22/2017 8:10 AM PST) + +---------+ + + + | Component | Value | Ref Range | Performed | Pathologist | | | | | At | Signature | + +---------+ + + + | WBC | 4.3 (A) | 4.5 - 11.0 10 | EXTERNAL | | | | | | LAB | | + +---------+ + + + | RED CELL | 4.72 | 4.3 - 5.7 10 | EXTERNAL | | | COUNT | | | LAB | | + +---------+ + + + | Hgb | 13.8 | 13.5 - 18.0 | EXTERNAL | | | | | g/dL | LAB | | + +---------+ + + + | Hematocrit, | 42.2 | 41 - 50 % | EXTERNAL | | | POC | | | LAB | | + +---------+ + + + | MCV | 89.3 | 81 - 99 fL | EXTERNAL | | | | | | LAB | | + +---------+ + + + | MCH | 29 | 27 - 33 pg | EXTERNAL | | | | | | LAB | | + +---------+ + + + | MCHC | 33 | 30 - 36 g/dL | EXTERNAL | | | | | | LAB | | + +---------+ + + + | Platelet | 183 | 140 - 440 K/ L | EXTERNAL | | | Count | | | LAB | | | Plasma | | | | | + +---------+ + + + | RDW-CV | 15.0 | 10.5 - 15.0 % | EXTERNAL | | | | | | LAB | | + +---------+ + + + | MPV | | fL | EXTERNAL | | | | | | LAB | | + +---------+ + + + | Differentia | | | EXTERNAL | | | l Type | | | LAB | | + +---------+ + + + | % Segmented | | % | EXTERNAL | | | | | | LAB | | | Neutrophils | | | | | + +---------+ + + + | % | | % | EXTERNAL | | | Lymphocytes | | | LAB | | + +---------+ + + + | % Monocytes | | % | EXTERNAL | | | | | | LAB | | + +---------+ + + + | % | | % | EXTERNAL | | | Eosinophils | | | LAB | | + +---------+ + + + | % Basophils | | % | EXTERNAL | | | | | | LAB | | + +---------+ + + + | Absolute | | / L | EXTERNAL | | | Segmented | | | LAB | | | Neutrophils | | | | | + +---------+ + + + | Absolute | | / L | EXTERNAL | | | Lymphocytes | | | LAB | | + +---------+ + + + | Absolute | | / L | EXTERNAL | | | Monocytes | | | LAB | | + +---------+ + + + | Absolute | | / L | EXTERNAL | | | Eosinophils | | | LAB | | + +---------+ + + + | Absolute | | / L | EXTERNAL | | | Basophils | | | LAB | | + +---------+ + + + + + | Specimen | + + | Blood specimen | | (specimen) | + + + +---------+ + + | Performing | Address | City/State/Zipcode | Phone Number | | Organization | | | | + +---------+ + + | EXTERNAL LAB | | | | + +---------+ + + ALT (03/22/2017 8:10 AM PST) + +-------+ + + + | Component | Value | Ref Range | Performed | Pathologist | | | | | At | Signature | + +-------+ + + + | ALT | 12 | 7 - 52 U/L | EXTERNAL | | | | | [...] | | | + +---------+ + + AST (03/22/2017 8:10 AM PST) + +--------+ + + + | Component | Value | Ref Range | Performed | Pathologist | | | | | At | Signature | + +--------+ + + + | AST | 11 (A) | 13 - 39 U/L | EXTERNAL | | | | | | LAB | | + +--------+ + + + + + | Specimen | + + | Blood specimen | | (specimen) | + + + +---------+ + + | Performing | Address | City/State/Zipcode | Phone Number | | Organization | | | | + +---------+ + + | EXTERNAL LAB | | | | + +---------+ + + Parathyroid Hormone, Intact (03/22/2017 8:10 AM PST) + + + + + + | Component | Value | Ref Range | Performed | Pathologist | | | | | At | Signature | + + + + + + | PTH INTACT | 152.7 (A) | 15 - 65 pg/mL | EXTERNAL | | | | | [...] | | | + +---------+ + + Magnesium (03/22/2017 8:10 AM PST) + +---------+ + + + | Component | Value | Ref Range | Performed | Pathologist | | | | | At | Signature | + +---------+ + + + | Magnesium | 1.2 (A) | 1.7 - 2.5 mg/dL | EXTERNAL | | | | | | LAB | | + +---------+ + + + + + | Specimen | + + | Blood specimen | | (specimen) | + + + +---------+ + + | Performing | Address | City/State/Zipcode | Phone Number | | Organization | | | | + +---------+ + + | EXTERNAL LAB | | | | + +---------+ + + CK Total (03/22/2017 8:10 AM PST) + +---------+ + + + | Component | Value | Ref Range | Performed | Pathologist | | | | | At | Signature | + +---------+ + + + | CK, Total | 221 (A) | 24 - 195 U/L | EXTERNAL | | | | | | LAB | | + +---------+ + + + + + | Specimen | + + | Blood specimen | | (specimen) | + + + +---------+ + + | Performing | Address | City/State/Zipcode | Phone Number | | Organization | | | | + +---------+ + + | EXTERNAL LAB | | | | + +---------+ + + Renal Function Panel (03/22/2017 8:10 AM PST) + + + + + + | Component | Value | Ref Range | Performed | Pathologist | | | | | At | Signature | + + + + + + | Glucose, | 125 (A) | 70 - 100 mg/dL | EXTERNAL | | | Fasting | | | LAB | | + + + + + + | BUN | 20 | 6 - 23 mg/dL | EXTERNAL | | | | | | LAB | | + + + + + + | Creatinine | 1.69 (A) | 0.70 - 1.33 | EXTERNAL | | | | | mg/dL | LAB | | + + + + + + | PHOSPHORUS | | mg/dL | EXTERNAL | | | | | | LAB | | + + + + + + | Albumin | 4.0 | 3.5 - 5.0 | EXTERNAL | | | | | | LAB | | + + + + + + | Na | 139 | 132 - 143 | EXTERNAL | | | | | mmol/L | LAB | | + + + + + + | K | 4.0 | 3.6 - 5.1 | EXTERNAL | | | | | mmol/L | LAB | | + + + + + + | Cl | 103 | 95 - 112 mmol/L | EXTERNAL | | | | | | LAB | | + + + + + + | CO2 | 25 | 19 - 31 mmol/L | EXTERNAL | | | | | | LAB | | + + + + + + | Anion Gap | 15.0 | 7 - 21 mmol/L | EXTERNAL | | | | | | LAB | | + + + + + + | eGFR if not | | | EXTERNAL | | | | | | LAB | | | [place] | | | | | + + + + + + | Phosphorus, | 3.2 | 2.5 - 5.0 | EXTERNAL | | | Inorganic | | | LAB | | + + + + + + | BUN/Creatin | 11.8 | 6.0 - 28.6 | EXTERNAL | | | ine Ratio | | | LAB | | + + + + + + | Calcium | 8.9 | 8.4 - 10.2 | EXTERNAL | | | | | mg/dL | LAB | | + + + + + + | Estimated | 42 (A) | 60 mg/dL | EXTERNAL | | | GFR [...]
--- OUTSIDE RECORDS SUMMARY | ~2019-05-09 | XMS | Encounter Summary ---
Demographics + + + | Address | [address] | | | [place] [address] | + + + | Home Phone [...] + + | Author | [facility] | + + + | Organization | [facility] | + + + | Address | Unknown | + + + | Phone | Unavailable | + + + Support + + +---------+ + | Name | Relationship | Address | Phone | + + +---------+ + | Olesya Lamb | ECON | Unknown | | + + +---------+ + Care Team Providers + +------+ + | Care Greens Planter Name | Role | Phone | + +------+ + | Oziel Michael MD | PCP | | + +------+ + Encounter Details +--------+ + + + + | Date | Type | Department | Care Team | Description | +--------+ + + + + | 10/22/ | Ancillary | LAB IMMUNOGENETIC | | | | 2013 | Orders | [facility] | | | | | | [address] | | | | | | [address] [place] [place], | | | | | | [place] [address] | | | +--------+ + + + [...] FLOW HLA AB PRA | Routin | 10/22/2013 | | | | SCREEN I/II | e | 3:49 PM | | | | | | PDT | | | + +--------+ + + + documented in this encounter Results LIT FLOW HLA AB PRA SCREEN I/II (10/22/2013 3:49 PM PDT) + + | Specimen | + + | Blood - Blood | + + + + + + + | Performing | Address | City/State/Zipcode | Phone Number | | Organization | | | | + + + + + | [facility] - | [address] | [place] [address] | | | IMMUNOGENETICS/TRANS | [address] | | | | [facility] | | | | + + + + + documented in this encounter Visit Diagnoses Not on filedocumented in this encounter"
--- OUTSIDE RECORDS SUMMARY | ~2019-05-09 | XMS | Encounter Summary ---
Demographics + + + | Address | [address] | | | [place] [address] | + + + | Home Phone | | + + + | Preferred Language | Unknown | + + + | Marital Status | Unknown | + + + | Confucianist Affiliation | Unknown | + + + | Race | Unknown | + + + | Ethnic Group | Unknown | + + + Author + + + | Author | [facility] | | | and [place] | + + + | Organization | [facility] | | | [...] Team Providers + +------+ + | Care Tip Banding Machine Operator Name | Role | Phone | + +------+ + PCP | Unavailable | + +------+ + Encounter Details +--------+ + + + + | Date | Type | Department | Care Team | Description | +--------+ + + + + | 01/04/ | Hospital | C GENERIC OP | Alexx Gutierrez MD | End stage renal | | 2010 | Encounter | CONVERSION DEP [address] | [address] | disease (HCC); | | | | [address] | [address] [facility], [place] | Fitting and | | | | [place], [place] | [address] | adjustment of | | | | [address] | | vascular catheter | | | | [phone] | | | +--------+ + + + [...] 2019 | Visit | | [address] [facility] | | | | | | [address] [facility] | | | | | | [address] | | | | | | | | +--------+---------+ + + + documented as of this encounter Procedures + +--------+ + + + | Procedure Name | Priori | Date/Time | Associated Diagnosis | Comments | | | ty | | | | + +--------+ + + + | IR REMOVAL TUNNELED | Routin | 01/04/2011 | | Results for this | | CV CATH WO PORT | e | 11:20 AM | | procedure are in the | | | | PDT | | results section. | + +--------+ + + + documented in this encounter Results IR Removal Tunneled CV Cath wo Port (01/04/2011 11:20 AM PDT) + + | Specimen | + + | | + + + + + | Narrative | Performed At | + + + | Addendum Begins ADDENDUM #1 After removal | | | of tunneled dialysis catheter, it was noted that a small portion of | | | the polyester cuff was retained in the subcutaneous tissue. Utilizing | | | gentle, blunt dissection, the remainder of the retained cuff was | | | removed. The patient and family were notified of this and and told | | | that a small portion of the cuff may still be retained. The patient | | | and family were educated to monitor the site for any signs infection | | | and notify us if this were to occur. Dr. Russ was informed of | | | this and agrees with the treatment and the plan of care. Dr. Gutierrez | | | was also notified of this. Addendum Ends [facility] | | | [facility] [address] | | | Patient Name: NIK MA Date of : 1960 Medical | | | Record: [id number] Account: [id number] | | | Exam Date/Time: 01/04/2011 11:00 Ordering Physician: ALEXX GUTIERREZ | | | Order Detail: [id number] Exam Description: IR TUNNELED CATHETER | | | REMOVAL | | | | | | PROCEDURE Removal of dual-lumen tunneled dialysis catheter in right | | | upper chest under local anesthesia. INDICATIONS Patient with | | | functioning left upper arm AV fistula. No longer utilizing tunneled | | | dialysis catheter as a functioning access, needs removal. | | | REQUESTING PROVIDER Alexx Gutierrez MD MEDICATIONS Lidocaine 1% for | | | local anesthesia. DESCRIPTION OF PROCEDURE I met this patient in | | | energy systems laboratory director holding room. I had a discussion with the patient | | | regarding the procedure, the risks involved, and the alternatives. | | | The patient verbalized understanding of this and their desire was to | | | proceed with the procedure. Therefore, written informed consent was | | | obtained. The patient was lying supine in the bed. The right upper | | | chest and external portion of the catheter were prepped utilizing | | | chlorahexadine scrubs. The skin and subcutaneous tissues were | | | infiltrated with 1% lidocaine. Sterile drapes were amarilis and sterile | | | technique was maintained throughout the procedure. Heparin lock was | | | removed from the dialysis catheter and 0.035 Amplatz guidewire was | | | placed through the venous port. Subsequently, using sharp and | | | blunt dissection, the subcutaneous cuff was from the | | | adjacent soft tissues and the catheter was removed over the wire. | | | Hemostasis was obtained with manual pressure. The patient | | | tolerated the procedure well and no procedural complications were | | | encountered. IMPRESSION Successful removal of right upper chest | | | tunneled dialysis catheter under local anesthesia without incident. | | | | | | 11:25 AM | | + + + + + | Procedure Note | + + | Manoj Weiss Conversion - 01/05/2019 5:11 PM PDT | | Addendum Begins | | | | ADDENDUM #1 | | After removal of tunneled dialysis catheter, it was noted that a small | | portion of the polyester cuff was retained in the subcutaneous tissue. | | Utilizing gentle, blunt dissection, the remainder of the retained cuff was | | removed. The patient and family were notified of this and and told that a | | small portion of the cuff may still be retained. The patient and family | | were educated to monitor the site for any signs infection and notify us if | | this were to occur. Dr. Russ was informed of this and agrees with the | | treatment and the plan of care. Dr. Gutierrez was also notified of this. | | | | | | | | Addendum Ends | | | | [facility] | | [facility] [address] | | | | | | Patient Name: NIK MA | | Date of : 1960 | | Medical Record: [id number] | | Account: [id number] | | | | | | Exam Date/Time: 01/04/2011 11:00 | | Ordering Physician: ALEXX GUTIERREZ | | Order Detail: [id number] | | Exam Description: IR TUNNELED CATHETER REMOVAL | | | | PROCEDURE | | Removal of dual-lumen tunneled dialysis catheter in right upper chest under | | local anesthesia. | | | | INDICATIONS | | Patient with functioning left upper arm AV fistula. No longer utilizing | | tunneled dialysis catheter as a functioning access, needs removal. | | | | REQUESTING PROVIDER | | Alexx Gutierrez MD | | | | MEDICATIONS | | Lidocaine 1% for local anesthesia. | | | | DESCRIPTION OF PROCEDURE | | I met this patient in energy systems laboratory director holding room. I had a discussion with the | | patient regarding the procedure, the risks involved, and the alternatives. | | The patient verbalized understanding of this and their desire was to | | proceed with the procedure. Therefore, written informed consent was | | obtained. | | | | The patient was lying supine in the bed. The right upper chest and external | | portion of the catheter were prepped utilizing chlorahexadine scrubs. The | | skin and subcutaneous tissues were infiltrated with 1% lidocaine. Sterile | | drapes were amarilis and sterile technique was maintained throughout the | | procedure. Heparin lock was removed from the dialysis catheter and 0.035 | | Amplatz guidewire was placed through the venous port. | | | | Subsequently, using sharp and blunt dissection, the subcutaneous cuff was | | from the adjacent soft tissues and the catheter was removed over | | the wire. Hemostasis was obtained with manual pressure. | | | | The patient tolerated the procedure well and no procedural complications | | were encountered. | | | | IMPRESSION | | Successful removal of right upper chest tunneled dialysis catheter under | | local anesthesia without incident. | | | | | | | + + documented in this encounter Visit Diagnoses + + | Diagnosis | + + | End stage renal disease (HCC) End stage renal disease | + + | Fitting and adjustment of vascular catheter | + + documented in this encounter"
--- OUTSIDE RECORDS SUMMARY | ~2019-05-09 | XMS | Encounter Summary ---
Demographics + + + | Address | [address] | | | [place] [address] | + + + | Home Phone | | + + + | Preferred Language | Unknown | + + + | Marital Status | Unknown | + + + | Lutheran Affiliation | Unknown | + + + | Race | Unknown | + + + | Ethnic Group | Unknown | + + + Author + + + | Author | [facility] | | | and [place] | + + + | Organization | [facility] | | | and [...] Team Providers + +------+ + | Care Street Light Servicer Helper Name | Role | Phone | + +------+ + PCP | Unavailable | + +------+ + Encounter Details +--------+ + + + + | Date | Type | Department | Care Team | Description | +--------+ + + + + | 10/26/ | Hospital | [facility] | Jewel Yanez | PNEUMONIA, ORGANISM | | 2010 | Encounter | CONVERSION [address] | [place] [address] | UNSPECIFIED; | | | | [address] | [address] | Unspecified | | | | [place], [place] | [place], [place] | circulatory system | | | | [address] | [phone] | disorder; Other | | | | [phone] | [phone] | Specified | | | | | | Pre-Operative | | | | | | Examination | +--------+ + + + + Social [...] 2019 | Visit | | [address] [facility] | | | | | | [address] [place] | | | | | | [address] | | | | | | | | +--------+---------+ + + + documented as of this encounter Procedures + +--------+ + + + | Procedure Name | Priori | Date/Time | Associated Diagnosis | Comments | | | ty | | | | + +--------+ + + + | VAS LOWER EXTREMITY | Routin | 10/26/2010 | | Results for this | | VEIN MAPPING | e | 12:40 PM | | procedure are in the | | BILATERAL | | PDT | | results section. | + +--------+ + + + documented in this encounter Results VAS Lower Extremity Vein Mapping Bilat (10/26/2010 12:40 PM PDT) + + | Specimen | + + | | + + + + + | Narrative | Performed At | + + + | [facility] [address] Ph: | | | Patient Name: NIK MA Date of : | | | 1960 Medical Record: [id number] Account: [id number] | | | Exam Date/Time: 10/26/2010 13:40 Ordering | | | Physician: ALEXX GUTIERREZ Order Detail: [id number] Exam Description: US | | | UPPER EXTREMITY ARTERIAL MIGUEL | | | | | | HISTORY: End-stage renal disease. Evaluate for dialysis fistula. | | | SCANNING PROTOCOL: Ultrasound of the upper extremity arteries and | | | veins was performed for preoperative evaluation for a dialysis | | | fistula. FINDINGS: Right arm: Cephalic vein at the upper | | | humerus 4.3-mm diameter and 5.9 mm depth at mid humerus 3.0-mm | | | diameter and 4.1-mm depth at the elbow the right cephalic vein is | | | thrombosed at upper forearm 2.3-mm diameter and 3.9-mm depth at mid | | | forearm 2.4-mm diameter and 4.2-mm depth at wrist 2.1-mm diameter and | | | 3.2-mm depth basilic vein at the upper humerus 4.5-mm diameter and | | | 9.0-mm depth at mid humerus 4.7-mm diameter and 10.0-mm depth at | | | elbow 5.0-mm diameter and 8.3-mm depth at upper forearm 2.2-mm | | | diameter and 4.3-mm depth at mid forearm and wrist not visualized | | | antecubital vein 3.6-mm diameter and 5.5-mm depth brachial vein at | | | upper humerus 6.3-mm diameter and 7.4-mm depth at mid humerus 3.8-mm | | | diameter and 8.6-mm depth at elbow 3.2-mm diameter and 10.1-mm depth | | | axillary vein 8.7-mm diameter and 18.0-mm depth radial artery 3.4-mm | | | diameter and 6.6-mm depth ulnar artery 1.8-mm diameter and 15.4-mm | | | depth brachial artery 7.5-mm diameter and 5.3-mm depth Left arm: | | | Cephalic vein at upper humerus 2.5-mm diameter and 6.7-mm depth at | | | mid humerus 2.1-mm diameter and 5.1-mm depth at elbow 3.3-mm diameter | | | and 2.7-mm depth at upper forearm 2.3-mm diameter and 5.9-mm depth | | | at mid forearm 2.2-mm diameter and 4.5-mm depth at wrist 1.4-mm | | | diameter and 5.9-mm depth basilic vein at upper humerus 3.7-mm | | | diameter and 10.8-mm depth at mid humerus 3.3-mm diameter and 8.7-mm | | | depth at elbow 1.5-mm diameter and 3.3-mm depth at upper forearm and | | | midforearm not visualized antecubital vein 3.4-mm diameter and | | | 5.0-mm depth brachial vein at upper humerus 7.4-mm diameter and | | | 10.7-mm depth at mid humerus 4.9-mm diameter and 10.7-mm depth at | | | elbow 2.5-mm diameter and 12.5-mm depth axillary vein 7.9-mm diameter | | | and 21.3-mm depth radial artery 3.1-mm diameter and 8.5-mm depth | | | ulnar artery 1.7-mm diameter and 8.3-mm depth brachial artery 6.9-mm | | | diameter and 8.1-mm depth IMPRESSION: 1. Bilateral upper | | | extremity arterial and venous mapping, as above. 2. Segment of | | | thrombosis within the right cephalic vein at the elbow. | | | | | + + + + + | Procedure Note | + + | Manoj Weiss Elio - 01/05/2019 5:11 PM PDT | | | | [facility] [address] | | | | | | Patient Name: NIK MA | | Date of : 1960 | | Medical Record: [id number] | | Account: [id number] | | | | | | Exam Date/Time: 10/26/2010 13:40 | | Ordering Physician: ALEXX GUTIERREZ | | Order Detail: [id number] | | Exam Description: US UPPER EXTREMITY ARTERIAL MIGUEL | | | | HISTORY: | | End-stage renal disease. Evaluate for dialysis fistula. | | | | SCANNING PROTOCOL: | | Ultrasound of the upper extremity arteries and veins was performed for | | preoperative evaluation for a dialysis fistula. | | | | FINDINGS: | | | | Right arm: | | Cephalic vein at the upper humerus 4.3-mm diameter and 5.9 mm depth | | at mid humerus 3.0-mm diameter and 4.1-mm depth | | at the elbow the right cephalic vein is thrombosed | | at upper forearm 2.3-mm diameter and 3.9-mm depth | | at mid forearm 2.4-mm diameter and 4.2-mm depth | | at wrist 2.1-mm diameter and 3.2-mm depth | | basilic vein at the upper humerus 4.5-mm diameter and 9.0-mm depth | | at mid humerus 4.7-mm diameter and 10.0-mm depth | | at elbow 5.0-mm diameter and 8.3-mm depth | | at upper forearm 2.2-mm diameter and 4.3-mm depth | | at mid forearm and wrist not visualized | | antecubital vein 3.6-mm diameter and 5.5-mm depth | | brachial vein at upper humerus 6.3-mm diameter and 7.4-mm depth | | at mid humerus 3.8-mm diameter and 8.6-mm depth | | at elbow 3.2-mm diameter and 10.1-mm depth | | axillary vein 8.7-mm diameter and 18.0-mm depth | | radial artery 3.4-mm diameter and 6.6-mm depth | | ulnar artery 1.8-mm diameter and 15.4-mm depth | | brachial artery 7.5-mm diameter and 5.3-mm depth | | | | Left arm: | | Cephalic vein at upper humerus 2.5-mm diameter and 6.7-mm depth | | at mid humerus 2.1-mm diameter and 5.1-mm depth | | at elbow 3.3-mm diameter and 2.7-mm depth | | at upper forearm 2.3-mm diameter and 5.9-mm depth | | at mid forearm 2.2-mm diameter and 4.5-mm depth | | at wrist 1.4-mm diameter and 5.9-mm depth | | basilic vein at upper humerus 3.7-mm diameter and 10.8-mm depth | | at mid humerus 3.3-mm diameter and 8.7-mm depth | | at elbow 1.5-mm diameter and 3.3-mm depth | | at upper forearm and midforearm not visualized | | antecubital vein 3.4-mm diameter and 5.0-mm depth | | brachial vein at upper humerus 7.4-mm diameter and 10.7-mm depth | | at mid humerus 4.9-mm diameter and 10.7-mm depth | | at elbow 2.5-mm diameter and 12.5-mm depth | | axillary vein 7.9-mm diameter and 21.3-mm depth | | radial artery 3.1-mm diameter and 8.5-mm depth | | ulnar artery 1.7-mm diameter and 8.3-mm depth | | brachial artery 6.9-mm diameter and 8.1-mm depth | | | | IMPRESSION: | | 1. Bilateral upper extremity arterial and venous mapping, as above. | | 2. Segment of thrombosis within the right cephalic vein at the elbow. | | | | | + + documented in this encounter Visit Diagnoses + + | Diagnosis | + + | Pneumonia, organism unspecified([id number]) Pneumonia, organism unspecified | + + | Unspecified circulatory system disorder | + + | Other specified pre-operative examination | + + documented in this encounter"
--- OUTSIDE RECORDS SUMMARY | ~2019-05-09 | XMS | Encounter Summary ---
Demographics + + + | Address | [address] | | | [place] [address] | + + + | Home Phone | | + + + | Preferred Language | Unknown | + + + | Marital Status | Unknown | + + + | Cheondoism Affiliation | Unknown | + + + | Race | Unknown | + + + | Ethnic Group | Unknown | + + + Author + + + | Author | [facility] | | | and [place] | + + + | Organization | [facility] | | | [...] Team Providers + +------+ + | Care Supervisor In Charge Name | Role | Phone | + +------+ + | Oziel Michael MD | PCP | | + +------+ + Encounter Details +--------+ + + + + | Date | Type | Department | Care Team | Description | +--------+ + + + + | 06/01/ | Orders Only | [facility] | Conversion | | | 2018 | | NEPHROLOGY [place] | Transaction, | | | | | [address] | Provider Unknown | | | | | [address] [place], [place] | | | | | | [address] | (Fax) | | | | | [phone] | | | +--------+ + + + [...] | +--------+---------+ + + + | 05/20/ Office | Nephrology | Alexx Gutierrez MD | | | 2019 | Visit | | [address] [facility] | | | | | | [address] [place], [place] | | | | | | [address] | | | | | | | | +--------+---------+ + + + documented as of this encounter Procedures + +--------+ + + + | Procedure Name | Priori | Date/Time | Associated Diagnosis | Comments | | | ty | | | | + +--------+ + + + | CULTURE, URINE | Routin | 06/01/2018 | | Results for this | | | e | 10:30 AM | | procedure are in the | | | | PST | | results section. | + +--------+ + + + documented in this encounter Results Culture, Urine (06/01/2018 10:30 AM PST) + + | Specimen | + + | Urine specimen | | (specimen) | + + + + + | Narrative | Performed At | + + + | Specimen Description Urine CULTURE | EXTERNAL LAB | | No Growth at 18-24 hrs. REPORT | | | STATUS final | | + + + + +---------+ + + | Performing | Address | City/State/Zipcode | Phone Number | | Organization | | | | + +---------+ + + | EXTERNAL LAB | | | | + +---------+ + + documented in this encounter Visit Diagnoses Not on filedocumented in this encounter"
--- OUTSIDE RECORDS SUMMARY | ~2019-05-09 | XMS | Encounter Summary ---
Demographics + + + | Address | [address] | | | [place] [address] | + + + | Home Phone | | + + + | Preferred Language | Unknown | + + + | Marital Status | Single | + + + | Adventist Affiliation | Unknown | + + + | Race | Black or | + + + | Ethnic Group | Not or | + + + Author + + + | Author | [facility] | + + + | Organization | [facility] | + + + | Address | Unknown | + + + | Phone | Unavailable | + + + Support + + +---------+ + | Name | Relationship | Address | Phone | + + +---------+ + | Olesya Lamb | ECON | Unknown | | + + +---------+ + Care Team Providers + +------+ + | Care Space Buyer Name | Role | Phone | + +------+ + | Oziel Michael MD | PCP | | + +------+ + Encounter Details +--------+ + + + + | Date | Type | Department | Care Team | Description | +--------+ + + + + | 03/23/ | Lab | LAB [facility] | | | | 2018 | Requisition | [facility] | | | | | | [address] | | | | | | [place], | | | | | | [place] [address] | | | +--------+ + + + [...] I & II ID | Routin | 03/21/2018 | | Results for this | | | e | 12:00 AM | | procedure are in the | | | | PST | | results section. | + +--------+ + + + | LIT FLOW HLA II AB | Routin | 03/21/2018 | | | | AG ID, BLOOD | e | 12:00 AM | | | | | | PST | | | + +--------+ + + + | LIT FLOW HLA I AB AG | Routin | 03/21/2018 | | Results for this | | ID, BLOOD | e | 12:00 AM | | procedure are in the | | | | PST | | results section. | + +--------+ + + + documented in this encounter Results LIT FLOW HLA II AB AG ID, BLOOD (03/21/2018 12:00 AM PST) + + | Specimen | + + | Blood - Blood | | (substance) | + + + + + + + | Performing | Address | City/State/Zipcode | Phone Number | | Organization | | | | + + + + + | [facility] - | [address] | [place] [address] | | | IMMUNOGENETICS/TRANS | [address] | | | | [facility] | | | | + + + + + LIT FLOW HLA I AB AG ID, BLOOD (03/21/2018 12:00 AM PST) + + + + [...] [facility] - | [address] | [place] [address] | | | IMMUNOGENETICS/TRANS | [address] | | | | [facility] | | | | + + + + + documented in this encounter Visit Diagnoses Not on filedocumented in this encounter"
--- OUTSIDE RECORDS SUMMARY | ~2019-05-09 | XMS | Encounter Summary ---
Demographics + + + | Address | [address] | | | [place] [address] | + + + | Home Phone | | + + + | Preferred Language | Unknown | + + + | Marital Status | Unknown | + + + | Quaker Affiliation | Unknown | + + + | Race | Unknown | + + + | Ethnic Group | Unknown | + + + Author + + + | Author | [facility] | | | and [place] | + + + | Organization | [facility] | | [...] Team Providers + +------+ + | Care Lathe Machine Operator Name | Role | Phone | + +------+ + | Oziel Michael MD | PCP | | + +------+ + Encounter Details +--------+ + + + + | Date | Type | Department | Care Team | Description | +--------+ + + + + | 09/26/ | Orders Only | [facility] | Alexx Gutierrez MD | | | 2018 | | NEPHROLOGY [place] | [address] [place] | | | | | [address] [place] | [address] [place], [place] | | | | | [address] [place], [place] | [address] | | | | | [address] | | | | | | [phone] | | | +--------+ + + + [...] 2019 | Visit | | [address] [facility] | | | | | | [address] [place] | | | | | | [address] | | | | | | | | +--------+---------+ + + + documented as of this encounter Procedures + +--------+ + + + | Procedure Name | Priori | Date/Time | Associated Diagnosis | Comments | | | ty | | | | + +--------+ + + + | EXTERNAL LAB: | Routin | 09/26/2017 | | Results for this | | TACROLIMUS LEVEL, | e | 9:55 AM | | procedure are in the | | LC-MS/MS | | PDT | | results section. | + +--------+ + + + documented in this encounter Results External Lab: Tacrolimus Level, LC-MS/MS (09/26/2017 9:55 AM PDT) + +-------+ + + + | Component | Value | Ref Range | Performed | Pathologist | | | | | At | Signature | + +-------+ + + + | Tacrolimus | 2.6 | | EXTERNAL | | | Level [...]
--- OUTSIDE RECORDS SUMMARY | ~2019-05-09 | XMS | Encounter Summary ---
Demographics + + + | Address | [address] | | | [place] [address] | + + + | Home Phone | | + + + | Preferred Language | Unknown | + + + | Marital Status | Unknown | + + + | Sabianism Affiliation | Unknown | + + + | Race | Unknown | + + + | Ethnic Group | Unknown | + + + Author + + + | Author | [facility] | | | and [place] | + + + | Organization | [facility] | | | and [place] | + + + | Address | Unknown | + + + | Phone | Unavailable | + + + Support + + +---------+ + | Name | Relationship | Address | Phone | + + +---------+ + | Olesyacedrci Lamb | ECON | Unknown | | + + +---------+ + | Fanny Peace | ECON | Unknown | | + + +---------+ + Care Team Providers + +------+ + | Care Registered Nurse Nursery Name | Role | Phone | + +------+ + | Oziel Michael MD | PCP | | + +------+ + Encounter Details +--------+ + + + + | Date | Type | Department | Care Team | Description | +--------+ + + + + | 05/30/ | Orders Only | [facility] | Conversion | | | 2017 | | CONVERSION [address]P [address] | Transaction, | | | | | [address] | Provider Unknown | | | | | [place] | [phone] | | | | | [address] | | | | | | [phone] | | | +--------+ + + + [...] 2020 | Visit | | [address] [facility] | | | | | | [address] [place] | | | | | | [address] | | | | | | | | +--------+---------+ + + + documented as of this encounter Visit Diagnoses Not on filedocumented in this encounter"
--- OUTSIDE RECORDS SUMMARY | ~2019-05-09 | XMS | Encounter Summary ---
Demographics + + + | Address | [address] | | | [place] [address] | + + + | Home Phone | | + + + | Preferred Language | Unknown | + + + | Marital Status | Single | + + + | Oriental Orthodox Affiliation | Unknown | + + + | Race | Black or | + + + | Ethnic Group | Not or | + + + Author + + + | Author | [facility] | + + + | Organization | [facility] | + + + | Address | Unknown | + + + | Phone | Unavailable | + + + Support + + +---------+ + | Name | Relationship | Address | Phone | + + +---------+ + | Olesya Lamb | ECON | Unknown | | + + +---------+ + Care Team Providers + +------+ + | Care Houseperson Name | Role | Phone | + +------+ + | Oziel Michael MD | PCP | | + +------+ + Encounter Details +--------+ + + + + | Date | Type | Department | Care Team | Description | +--------+ + + + + | 06/19/ | Ancillary | LAB [facility]MM[facility]ETIC | | | | 2012 | Orders | [facility] | | | | | | [address] | | | | | | [address] [place], | | | | | | [place] [address] | | | +--------+ + + + [...] + + | LIT FLOW HLA AB | Routin | 06/19/2012 | | | | QUICK SCREEN I/II | e | 12:03 PM | | | | | | PST | | | + +--------+ + + + documented in this encounter Results LIT FLOW HLA AB QUICK SCREEN I/II (06/19/2012 12:03 PM PST) + + | Specimen | + + | Blood - Blood | + + + + + + + | Performing | Address | City/State/Zipcode | Phone Number | | Organization | | | | + + + + + | [facility] - | [address] | [place] [address] | | | IMMUNOGENETICS/TRANS | [address] | | | | [facility] | | | | + + + + + documented in this encounter Visit Diagnoses Not on filedocumented in this encounter"
--- OUTSIDE RECORDS SUMMARY | ~2019-05-09 | XMS | Encounter Summary ---
Demographics + + + | Address | [address] | | | [place] [address] | + + + | Home Phone | | + + + | Preferred Language | Unknown | + + + | Marital Status | Unknown | + + + | Voodoo Affiliation | Unknown | + + + | Race | Unknown | + + + | Ethnic Group | Unknown | + + + Author + + + | Author | [facility] | | | and [place] | + + + | Organization | [facility] | | [...] Team Providers + +------+ + | Care Gas Flow Regulator Name | Role | Phone | + +------+ + | Oziel Michael MD | PCP | | + +------+ + Encounter Details +--------+ + + + + | Date | Type | Department | Care Team | Description | +--------+ + + + + | 01/04/ | Orders Only | [facility] | Alexx Gutierrez MD | | | 2016 | | NEPHROLOGY [place] | [address] [place] | | | | | [address] [place] | [address] [place], [place] | | | | | [address] [place], [place] | [address] | | | | | [address] | | | | | | [phone] | | | +--------+ + + + [...] 2019 | Visit | | [address] [facility] | | | | | | [address] [place] | | | | | | [address] | | | | | | | | +--------+---------+ + + + documented as of this encounter Procedures + +--------+ + + + | Procedure Name | Priori | Date/Time | Associated Diagnosis | Comments | | | ty | | | | + +--------+ + + + | EXTERNAL LAB: | Routin | 01/04/2017 | | Results for this | | TACROLIMUS LEVEL, | e | 10:27 AM | | procedure are in the | | LC-MS/MS | | PDT | | results section. | + +--------+ + + + | EXTERNAL LAB: CBC | Routin | 01/04/2017 | | Results for this | | | e | 10:27 AM | | procedure are in the | | | | PDT | | results section. | + +--------+ + + + | LIPID PANEL | Routin | 01/04/2017 | | Results for this | | | e | 10:27 AM | | procedure are in the | | | | PDT | | results section. | + +--------+ + + + | ALT | Routin | 01/04/2017 | | Results for this | | | e | 10:27 AM | | procedure are in the | | | | PDT | | results section. | + +--------+ + + + | URIC ACID | Routin | 01/04/2017 | | Results for this | | | e | 10:27 AM | | procedure are in the | | | | PDT | | results section. | + +--------+ + + + | AST | Routin | 01/04/2017 | | Results for this | | | e | 10:27 AM | | procedure are in the | | | | PDT | | results section. | + +--------+ + + + | PARATHYROID HORMONE, | Routin | 01/04/2017 | | Results for this | | INTACT | e | 10:27 AM | | procedure are in the | | | | PDT | | results section. | + +--------+ + + + | MAGNESIUM | Routin | 01/04/2017 | | Results for this | | | e | 10:27 AM | | procedure are in the | | | | PDT | | results section. | + +--------+ + + + | CK TOTAL | Routin | 01/04/2017 | | Results for this | | | e | 10:27 AM | | procedure are in the | | | | PDT | | results section. | + +--------+ + + + | RENAL FUNCTION PANEL | Routin | 01/04/2017 | | Results for this | | | e | 10:27 AM | | procedure are in the | | | | PDT | | results section. | + +--------+ + + + documented in this encounter Results External Lab: Tacrolimus Level, LC-MS/MS (01/04/2017 10:27 AM PDT) + +-------+ + + + | Component | Value | Ref Range | Performed | Pathologist | | | | | At | Signature | + +-------+ + + + | Tacrolimus | 4.8 | | EXTERNAL | | | Level [...] + +---------+ + + External Lab: CBC (01/04/2017 10:27 AM PDT) + +---------+ + + + | Component | Value | Ref Range | Performed | Pathologist | | | | | At | Signature | + +---------+ + + + | WBC | 4.2 (A) | 4.5 - 11.0 10 | EXTERNAL | | | | | | LAB | | + +---------+ + + + | RED CELL | 4.74 | 4.3 - 5.7 10 | EXTERNAL | | | COUNT | | | LAB | | + +---------+ + + + | Hgb | 13.9 | 13.5 - 18.0 | EXTERNAL | | | | | g/dL | LAB | | + +---------+ + + + | Hematocrit, | 42.3 | 41 - 50 % | EXTERNAL | | | POC | | | LAB | | + +---------+ + + + | MCV | 89.1 | 81 - 99 fL | EXTERNAL [...] +---------+ + + + | Platelet | 178 | 140 - 440 K/ L | EXTERNAL | | | Count | | | LAB | | | Plasma | | | | | + +---------+ + + + | RDW-CV | 14.8 | 10.5 - 15.0 % | EXTERNAL [...] | | | + +---------+ + + Uric Acid (01/04/2017 10:27 AM PDT) + +-------+ + + + | Component | Value | Ref Range | Performed | Pathologist | | | | | At | Signature | + +-------+ + + + | Uric Acid | 7.6 | 4.4 - 7.6 | EXTERNAL | | | | | [...] | | + +---------+ + + ALT (01/04/2017 10:27 AM PDT) + +-------+ + + + | Component | Value | Ref Range | Performed | Pathologist | | | | | At | Signature | + +-------+ + + + | ALT | 18 | 7 - 52 U/L | EXTERNAL [...] | | + +---------+ + + AST (01/04/2017 10:27 AM PDT) + +-------+ + + + | Component | Value | Ref Range | Performed | Pathologist | | | | | At | Signature | + +-------+ + + + | AST | 13 | 13 - 39 U/L | EXTERNAL [...] + +---------+ + + Parathyroid Hormone, Intact (01/04/2017 10:27 AM PDT) + + + + + + | Component | Value | Ref Range | Performed | Pathologist | | | | | At | Signature | + + + + + + | PTH INTACT | 178.8 (A) | 15 - 65 pg/mL | [...] | | + +---------+ + + Magnesium (01/04/2017 10:27 AM PDT) + +---------+ + + + | Component | Value | Ref Range | Performed | Pathologist | | | | | At | Signature | + +---------+ + + + | Magnesium | 1.3 (A) | 1.7 - 2.5 mg/dL | [...] | + +---------+ + + CK Total (01/04/2017 10:27 AM PDT) + +---------+ + + + | Component | Value | Ref Range | Performed | Pathologist | | | | | At | Signature | + +---------+ + + + | CK, Total | 225 (A) | 24 - 195 U/L | [...] + +---------+ + + Renal Function Panel (01/04/2017 10:27 AM PDT) + + + + + + | Component | Value | Ref Range | Performed | Pathologist | | | | | At | Signature | + + + + + + | Glucose, | 126 (A) | 70 - 100 mg/dL | EXTERNAL | | | Fasting | | | LAB | | + + + + + + | BUN | 24 (A) | 6 - 23 mg/dL | EXTERNAL | | | | | | LAB | | + + + + + + | Creatinine | 1.54 (A) | 0.70 - 1.33 | EXTERNAL | | | | | mg/dL | LAB | | + + + + + + | PHOSPHORUS | | mg/dL | EXTERNAL | | | | | | LAB | | + + + + + + | Albumin | 4.2 | 3.5 - 5.0 | EXTERNAL | | | | | | LAB | | + + + + + + | Na | 138 | 132 - 143 | EXTERNAL | | | | | mmol/L | LAB | | + + + + + + | K | 4.3 | 3.6 - 5.1 | EXTERNAL | | | | | mmol/L | LAB | | + + + + + + | Cl | 102 | 95 - 112 mmol/L | EXTERNAL | | | | | | LAB | | + + + + + + | CO2 | 26 | 19 - 31 mmol/L | EXTERNAL | | | | | | LAB | | + + + + + + | Anion Gap | 14.3 | 7 - 21 mmol/L | EXTERNAL | | | | | | LAB | | + + + + + + | eGFR if not | | | EXTERNAL | | | | | | LAB | | | NAURUAN | | | | | + + + + + + | Phosphorus, | 3.3 | 2.5 - 5.0 | EXTERNAL | | | Inorganic | | | LAB | | + + + + + + | BUN/Creatin | 15.6 | 6.0 - 28.6 | EXTERNAL | | | ine Ratio | | | LAB | | + + + + + + | Calcium | 9.2 | 8.4 - 10.2 | EXTERNAL | | | | | mg/dL | LAB | | + + + + + + | Estimated | 47 | mg/dL | EXTERNAL | | | GFR [...] | | | + +---------+ + + Lipid Panel (01/04/2017 10:27 AM PDT) + +---------+ + + + | Component | Value | Ref Range | Performed | Pathologist | | | | | At | Signature | + +---------+ + + + | Cholesterol | 163 | mg/dL | EXTERNAL | | | | | | LAB | | + +---------+ + + + | Triglycerid | 182 (A) | 30 - 150 mg/dL | EXTERNAL | | | es | | | LAB | | + +---------+ + + + | HDL | 32.6 | mg/dl | EXTERNAL | | | | | | LAB | | + +---------+ + + + | LDL | 94 | mg/dL | EXTERNAL | | | Cholesterol | | | LAB | | | , | | | | | | Calculated, | | | | | | External | | | | | + +---------+ + + + | LDl/HDL | | | EXTERNAL | | | Ratio | | | LAB | | + +---------+ + + + | Chol/HDL | 5.0 | | EXTERNAL | | | Ratio | | | LAB | | + +---------+ + + + | VLDL | 36 | 4 - 40 mg/dL | EXTERNAL | | | | | | LAB | | + +---------+ + + + | Non HDL | 130 | | EXTERNAL | | | Chol. | | | LAB | | | (LDL+VLDL) | | | | | + +---------+ [...]
--- OUTSIDE RECORDS SUMMARY | ~2019-05-09 | XMS | Encounter Summary ---
Demographics + + + | Address | [address] | | | [place] [address] | + + + | Home Phone [...] | + + +---------+ + | Fanny ePace | ECON | Unknown | | + + +---------+ + Care Team Providers + +------+ + | Care Level Vial Curvature Gauger Name | Role | Phone | + +------+ + | Oziel Michael MD | PCP | | + +------+ + Reason for Visit +--------+ + | Reason | Comments | +--------+ + | Other | APPT/LABS REMINDER | +--------+ + Encounter Details +--------+ + + + + | Date | Type | Department | Care Team | Description | +--------+ + + + + | 02/22/ | Telephone | [facility] | Radha Szymanski | Other (APPT/LABS | | 2019 | | NEPRHOLOGY [place] | V, Medical | REMINDER) | | | | [address] | Sales Market Leader | | | | | [address] [place], [place] | | | | | | [address] | | | | | | [phone] | | | +--------+ + + + [...] 2020 | Visit | | [address] [facility] | | | | | | [address] [place] | | | | | | [address] | | | | | | | | +--------+---------+ + + + documented as of this encounter Visit Diagnoses Not on filedocumented in this encounter"
--- OUTSIDE RECORDS SUMMARY | ~2019-05-09 | XMS | Encounter Summary ---
Demographics + + + | Address | [address] | | | [place] [address] | + + + | Home Phone | | + + + | Preferred Language | Unknown | + + + | Marital Status | Single | + + + | Anglican Affiliation | Unknown | + + + | Race | Black or | + + + | Ethnic Group | Not or | + + + Author + + + | Author | [facility] | + + + | Organization | [facility] | + + + | Address | Unknown | + + + | Phone | Unavailable | + + + Support + + +---------+ + | Name | Relationship | Address | Phone | + + +---------+ + | Olesya Lamb | ECON | Unknown | | + + +---------+ + Care Team Providers + +------+ + | Care Urgent Care Nurse Practitioner Name | Role | Phone | + +------+ + | Oziel Michael MD | PCP | | + +------+ + Encounter Details +--------+ + + + + | Date | Type | Department | Care Team | Description | +--------+ + + + + | 03/19/ | Lab | LAB IMMUNOGENETIC | | | | 2014 | Requisition | [facility]PL[facility] | | | | | | [address] | | | | | | [address] [place], | | | | | | [place] [address] | | | +--------+ + + + [...] FLOW HLA AB PRA | Routin | 03/19/2015 | | | | SCREEN I/II | e | 1:44 PM | | | | | | PST | | | + +--------+ + + + documented in this encounter Results LIT FLOW HLA AB PRA SCREEN I/II (03/19/2015 1:44 PM PST) + + | Specimen | + + | Blood - Blood | | (substance) | + + + + + + + | Performing | Address | City/State/Zipcode | Phone Number | | Organization | | | | + + + + + | [facility] - | [address] | [place] [address] | | | IMMUNOGENETICS/TRANS | [address] | | | | [facility] | | | | + + + + + documented in this encounter Visit Diagnoses Not on filedocumented in this encounter"
--- OUTSIDE RECORDS SUMMARY | ~2019-05-09 | XMS | Clinical Summary ---
Demographics + + + | Address | [address] | | | [place] [address] | + + + | Home Phone | | + + + | Preferred Language | Unknown | + + + | Marital Status | Single | + + + | Baptist Affiliation | Unknown | + + + [...] Team Providers + +------+ + | Care Home Energy Inspector Name | Role | Phone | + +------+ + | Oziel Michael MD | PCP | | + +------+ + Source Comments MARK is fully live on both [facility] Ambulatory and [facility] InPatient.[facility] Allergies No Known Allergies Medications + + [...] 05/30/2016 | + + + | Other correction (current) drug therapy | 05/30/2016 | + [...] + + | [facility] - | [address] | [place] [address] | | | IMMUNOGENETICS/TRANS | [address] [...] [facility] - | [address] | [place] [address] | | | IMMUNOGENETICS/TRANS | [address] [...] | | | | | | | [address] | | + +--------+ +--------+ + +--------+ | [place]ICAID [place] | OHP | xxxxxxxx | | [phone] | [address] | [address] | | | PLUS | | [phone] | id | | | OPEN | | esent | | [place] | | | | CARD | | | | [id number] | | + +--------+ +--------+ + +--------+ [...] Self | [birth year] | [address] | | | al/Fam | | 1961 | [phone] | [place] | | | alexsandra | | | 2 (Home) | [address] | + +--------+ +--------+ + +"
--- OUTSIDE RECORDS SUMMARY | ~2019-05-09 | XMS | Encounter Summary ---
Demographics + + + | Address | [address] | | | [place] [address] | + + + | Home Phone | | + + + | Preferred Language | Unknown | + + + | Marital Status | Single | + + + | Yarsani Affiliation | Unknown | + + + | Race | Black or | + + + | Ethnic Group | Not or | + + + Author + + + | Author | [facility] | + + + | Organization | [facility] | + + + | Address | Unknown | + + + | Phone | Unavailable | + + + Support + + +---------+ + | Name | Relationship | Address | Phone | + + +---------+ + | Olesya Lamb | ECON | Unknown | | + + +---------+ + Care Team Providers + +------+ + | Care Interpretive Program Coordinator Name | Role | Phone | + +------+ + | Oziel Michael MD | PCP | | + +------+ + Encounter Details +--------+ + + + + | Date | Type | Department | Care Team | Description | +--------+ + + + + | 12/22/ | Lab | LAB IMMUNOGENETIC | | | | 2014 | Requisition | [facility]PL[facility] LAB | | | | | | [address] | | | | | | [address] [place], | | | | | | [place] [address] | | | +--------+ + + + [...] FLOW HLA AB PRA | Routin | 12/22/2014 | | | | SCREEN I/II | e | 11:16 AM | | | | | | PDT | | | + +--------+ + + + documented in this encounter Results LIT FLOW HLA AB PRA SCREEN I/II (12/22/2014 11:16 AM PDT) + + | Specimen | + + | Blood - Blood | + + + + + + + | Performing | Address | City/State/Zipcode | Phone Number | | Organization | | | | + + + + + | [facility] - | [address] | [place] [address] | | | IMMUNOGENETICS/TRANS | [address] | | | | [facility] | | | | + + + + + documented in this encounter Visit Diagnoses Not on filedocumented in this encounter"
--- OUTSIDE RECORDS SUMMARY | ~2019-05-09 | XMS | Encounter Summary ---
Demographics + + + | Address | [address] | | | [place] [address] | + + + | Home Phone | | + + + | Preferred Language | Unknown | + + + | Marital Status | Unknown | + + + | Denominational Affiliation | Unknown | + + + | Race | Unknown | + + + | Ethnic Group | Unknown | + + + Author + + + | Author | [facility] | | | and [place] | + + + | Organization | [facility] | | [...] Team Providers + +------+ + | Care Swaging Machine Adjuster Name | Role | Phone | + +------+ + | Oziel Michael MD | PCP | | + +------+ + Encounter Details +--------+ + + + + | Date | Type | Department | Care Team | Description | +--------+ + + + + | 10/12/ | Orders Only | [facility] | Alexx Gutierrez MD | | | 2017 | | NEPRHOLOGY [place] | [address] | | | | | [address] | [address] [place], [place] | | | | | [address] [place], [place] | [address] | | | | | [address] | | | | | | [phone] | | | +--------+ + + + [...] 2020 | Visit | | [address] [facility] | | | | | | [address] [place] | | | | | | [address] | | | | | | | | +--------+---------+ + + + documented as of this encounter Visit Diagnoses Not on filedocumented in this encounter"
--- OUTSIDE RECORDS SUMMARY | ~2019-05-09 | XMS | Encounter Summary ---
Demographics + + + | Address | [address] | | | [place] [address] | + + + | Home Phone | | + + + | Preferred Language | Unknown | + + + | Marital Status | Unknown | + + + | Christianity Affiliation | Unknown | + + + | Race | Unknown | + + + | Ethnic Group | Unknown | + + + Author + + + | Author | [facility] | | | and [place] | + + + | Organization | [facility] | [...] Team Providers + +------+ + | Care Package Worker Name | Role | Phone | + +------+ + | Oziel Michael MD | PCP | | + +------+ + Encounter Details +--------+ + + + + | Date | Type | Department | Care Team | Description | +--------+ + + + + | 08/07/ | Orders Only | [facility] | Conversion | | | 2018 | | NEPHROLOGY [place] | Transaction, | | | | | [address] | Provider Unknown | | | | | [address] [place], [place] | | | | | | [address] | (Fax) | | | | | [phone] | | | +--------+ + + + [...] 2019 | Visit | | [address] [facility] | | | | | | [address] [place], [place] | | | | | | [address] | | | | | | | | +--------+---------+ + + + documented as of this encounter Procedures + +--------+ + + + | Procedure Name | Priori | Date/Time | Associated Diagnosis | Comments | | | ty | | | | + +--------+ + + + | CULTURE, URINE | Routin | 08/07/2018 | | Results for this | | | e | 9:43 AM | | procedure are in the | | | | PDT | | results section. | + +--------+ + + + documented in this encounter Results Culture, Urine (08/07/2018 9:43 AM PDT) + + | Specimen | + + | Urine specimen | | (specimen) | + + + + + | Narrative | Performed At | + + + | Specimen Description urine CULTURE | EXTERNAL LAB | | No Growth at 18-24 hrs. REPORT | | | STATUS Final | | + + + + +---------+ + + | Performing | Address | City/State/Zipcode | Phone Number | | Organization | | | | + +---------+ + + | EXTERNAL LAB | | | | + +---------+ + + documented in this encounter Visit Diagnoses Not on filedocumented in this encounter"
--- OUTSIDE RECORDS SUMMARY | ~2019-05-09 | XMS | Encounter Summary ---
Demographics + + + | Address | [address] | | | [place] [address] | + + + | Home Phone | | + + + | Preferred Language | Unknown | + + + | Marital Status | Unknown | + + + | Roman Catholic Affiliation | Unknown | + + + | Race | Unknown | + + + | Ethnic Group | Unknown | + + + Author + + + | Author | [facility] | | | and [place] | + + + | Organization | [facility] | | | [...] Team Providers + +------+ + | Care Entomology Professor Name | Role | Phone | + +------+ + PCP | Unavailable | + +------+ + Encounter Details +--------+ + + + + | Date | Type | Department | Care Team | Description | +--------+ + + + + | 10/26/ | Hospital | [facility] | Conversion | ESRD (end stage | | 2012 | Encounter | CENTER CV INTRA OP | Transaction, | renal disease) ([facility]) | | | | [address] | Provider Unknown | | | | | [place], [place] | [phone] | | | | | [address] | | | | | | [phone] | Alexx Gutierrez MD | | | | | | [address] [place] | | | | | | [address] [place], [place] | | | | | | [address] | | | | | | | | +--------+ + + [...] + + documented as of this encounter Discharge Summaries Bre Mortensen MD - 10/27/2011 2:48 PM PDT Discharge Summaries by Zoya Mortensen MD at 10/27/11 4590 Author: Zoya Mortensen MD Service: (none) Author Type: Physician Filed: 10/27/11 6387 Date of Service: 10/27/111447 Status: Signed Medical Videographer: Zoya Mortensen MD (Physician) [facility] Service: Interventional Radiology Post-Procedure Discharge Note DISCHARGE DIAGNOSES: Poorly functioning left arm AV fistula., Procedures: Left brachiocephalic fistulagram and angioplasty of the proximal cephalic venous stenosis w ith 7 mm balloon with good results, This patient was transferred to the recovery area post-procedurally and has experienced no difficulties at the time of my assessment. The patient is anticipated to continue to meet d ischarge criteria per protocol as assessed by nursing and may be discharged at that time wit h designated caregiver. Vital signs: BP 118/65 | Pulse 75 | Temp(Src) 98.1 F (36.7 C) (Tympanic) | Resp 15 | Ht 1.727 m (5' 8") | Wt 95.255 kg (210 lb) | BMI 31.93 kg/m2 | SpO2 100% Disposition: Home Condition: Stable Code Status: No Order Follow up: Alexx Gutierrez MD [address] [facility] [address] [facility] [address] Discharge Medications: Current Discharge Medication List CONTINUE these medications which have NOT CHANGED Details amlodipine (NORVASC) 10 MG tablet Take 10 mg by mouth daily. !! B Rspqzhw-W-Ekxjv Acid (STERLING-BRITT PO) Take by mouth daily. !! B Ctzfidp-E-Bfadq Acid (STERLING-BRITT) TABS Take 1 tablet by mouth daily. Qty: 60 each, Refills: 3 Cholecalciferol (VITAMIN D-3 PO) Take 1 tablet by mouth. furosemide (LASIX) 80 MG tablet Take 80 mg by mouth daily. lisinopril (PRINIVIL,ZESTRIL) 20 MG tablet Take 20 mg by mouth daily. sevelamer (RENVELA) 800 MG tablet Take 800 mg by mouth 3 (three) times daily with meals. !! vitamin B sxdmyzm-O-efshq acid (SUPER B VITAMINS) 0.8 MG TABS Take 1 tablet by mouth deanne ly with breakfast. Qty: 100 tablet, Refills: 3 !! - Potential duplicate medications found. Please discuss with provider. ZOYA MORTENSEN MD 10/27/2011 2:49 PM documented in th is encounter Medications at Time of Discharge + [...] 2019 | Visit | | [address] [facility] | | | | | | [address] [place] | | | | | | [address] | | | | | | | | +--------+---------+ + + + documented as of this encounter Procedures + +--------+ + + + | Procedure Name | Priori | Date/Time | Associated Diagnosis | Comments | | | ty | | | | + +--------+ + + + | IR INJECTION | Routin | 10/27/2011 | | Results for this | | DIALYSIS CIRCUIT W | e | 2:51 PM | | procedure are in the | | ANGIOPLASTY | | PDT | | results section. | + +--------+ + + + | IR INJECTION | Routin | 10/27/2011 | | Results for this | | DIALYSIS CIRCUIT | e | 2:51 PM | | procedure are in the | | | | PDT | | results section. | + +--------+ + + + documented in this encounter Results IR Inj Dialysis Circuit w Angioplasty (10/27/2011 2:51 PM PDT) + + | Specimen | + + | | + + + + + | Narrative | Performed At | + + + | [facility] 10/27/2011 2:14 PM | | | HISTORY: 51 years. Male. With chronic kidney disease stage V | | | presents with decreasing KT over V. EXAMINATION Left brachia | | | cephalic fistulogram and angioplasty of the segmental stenosis in | | | proximal left cephalic vein using 7 mm x 4 cm balloon catheter. | | | MEDICATIONS: Isovue-200 42 cc, Heparin 4800 units intravenous, | | | Versed 1 mg intravenous, fentanyl 50-mcg intravenous. | | | Intra-procedure sedation time 27 minutes. The radiation dose 14 | | | mGray, Fluoroscopy time 1.1 minutes. Appropriate physiologic | | | monitoring, maintenance of adequate conscious sedation and | | | independent fdc supervision performed throughout the | | | procedure. PROCEDURE: Informed written consent obtained from | | | the patient after explaining the procedure, risks and alternatives. | | | Patient understood the discussion and expressed a wish to proceed. | | | ?The appropriate side and site was labeled and initialed as an | | | independent process antecedent to the imaging and intervention, as per | | | protocol at this institution.? Patient was placed supine on | | | the x-ray table. The left arm prepped in the usual sterile fashion. | | | Left arm AV fistula was accessed using micropuncture needle and | | | exchanged for 4-Bolivian micropuncture sheath. Initial fistula | | | pressure was obtained and fistulogram obtained from the left cubital | | | fossa to the right atrium. Given the segmental, more than 80% | | | stenosis involving proximal left cephalic vein proximal to previously | | | placed metallic stent, I decided to perform angioplasty of the venous | | | lesion. 4-Bolivian micropuncture sheath was exchanged for 6-Bolivian | | | short sheath over a 0.035, angled Glidewire. 7 mm x 4 cm balloon | | | catheter was advanced over the 0.035, angled Glidewire. Balloon was | | | positioned across stenosis in proximal left cephalic vein and | | | angioplasty was performed. Additional balloon inflation of the focal | | | areas of intimal hyperplasia within the metallic stent was also | | | performed. During inflation of the balloon across the venous | | | anastomosis Reflux evaluation of the arteriovenous anastomosis | | | obtained. Subsequently, balloon was deflated and a final fistulogram | | | obtained from the left cubital fossa to the right atrium. Final | | | fistula pressure and arterial pressures were obtained. All catheters | | | and wires then removed and hemostasis obtained with manual | | | pressure. No immediate procedural complications. Patient | | | tolerated the procedure well. FINDINGS 1. Initial fistula | | | pressure 103/64 mm Hg, arterial pressure 149/82 mm Hg, final fistula | | | pressure 56/36 mm Hg. 2. Left brachio cephalic fistulogram | | | revealed 4 cm, segmental, more than 80% stenosis involving left | | | cephalic vein proximal to previously deployed stent. Less than 30% | | | stenosis from intimal hyperplasia are noted within the metallic stent. | | | Rest of the left cephalic vein, left subclavian vein, left | | | brachia cephalic vein and superior vena cava are widely patent. | | | Arterial anastomosis is widely patent. 3. Successful angioplasty | | | of the 4 cm, segmental, more than 80% concentric stenosis involving | | | proximal left cephalic vein using 7 mm x 4 cm balloon catheter with no | | | residual anatomic stenosis. IMPRESSION: 1. Successful left | | | brachio cephalic fistulogram and angioplasty of the significant, 4 cm | | | segmental concentric more than 80% stenosis involving proximal left | | | cephalic vein with no residual anatomic stenosis and good hemodynamic | | | results. Electronically signed by Zoya Mortensen MD on | | | 10/27/2011 2:47 PM | | + + + + + | Procedure Note | + + | Abhishek, Rad Conversion - 01/05/2019 9:02 AM [facility] | | FISTULAGRAM10/27/2011 2:14 PM HISTORY:51 years. Male. With chronic kidney disease stage | | V presents with decreasing KT over V. EXAMINATION Left brachia cephalic fistulogram | | and angioplasty of the segmental stenosis in proximal left cephalic vein using 7 mm x 4 | | cm balloon catheter. MEDICATIONS: Isovue-200 42 cc, Heparin 4800 units intravenous, | | Versed 1 mg intravenous, fentanyl 50-mcg intravenous. Intra-procedure sedation time 27 | | minutes. The radiation dose 14 mGray, Fluoroscopy time 1.1 minutes. Appropriate | | physiologic monitoring, maintenance of adequate conscious sedation and independent | | fdc supervision performed throughout the procedure. PROCEDURE: Informed | | written consent obtained from the patient after explaining the procedure, risks and | | alternatives. Patient understood the discussion and expressed a wish to proceed.?The | | appropriate side and site was labeled and initialed as an independent process antecedent | | to the imaging and intervention, as per protocol at this institution.? Patient was | | placed supine on the x-ray table. The left arm prepped in the usual sterile fashion. | | Left arm AV fistula was accessed using micropuncture needle and exchanged for 4-Bolivian | | micropuncture sheath. Initial fistula pressure was obtained and fistulogram obtained | | from the left cubital fossa to the right atrium. Given the segmental, more than 80% | | stenosis involving proximal left cephalic vein proximal to previously placed metallic | | stent, I decided to perform angioplasty of the venous lesion. 4-Bolivian micropuncture | | sheath was exchanged for 6-Bolivian short sheath over a 0.035, angled Glidewire. 7 mm x 4 | | cm balloon catheter was advanced over the 0.035, angled Glidewire. Balloon was | | positioned across stenosis in proximal left cephalic vein and angioplasty was performed. | | Additional balloon inflation of the focal areas of intimal hyperplasia within the | | metallic stent was also performed. During inflation of the balloon across the venous | | anastomosis Reflux evaluation of the arteriovenous anastomosis obtained. Subsequently, | | balloon was deflated and a final fistulogram obtained from the left cubital fossa to the | | right atrium. Final fistula pressure and arterial pressures were obtained. All | | catheters and wires then removed and hemostasis obtained with manual pressure. No | | immediate procedural complications. Patient tolerated the procedure well. FINDINGS1. | | Initial fistula pressure 103/64 mm Hg, arterial pressure 149/82 mm Hg, final fistula | | pressure 56/36 mm Hg.2. Left brachio cephalic fistulogram revealed 4 cm, segmental, | | more than 80% stenosis involving left cephalic vein proximal to previously deployed | | stent. Less than 30% stenosis from intimal hyperplasia are noted within the metallic | | stent. Rest of the left cephalic vein, left subclavian vein, left brachia cephalic vein | | and superior vena cava are widely patent. Arterial anastomosis is widely patent.3. | | Successful angioplasty of the 4 cm, segmental, more than 80% concentric stenosis | | involving proximal left cephalic vein using 7 mm x 4 cm balloon catheter with no | | residual anatomic stenosis. IMPRESSION:1. Successful left brachio cephalic fistulogram | | and angioplasty of the significant, 4 cm segmental concentric more than 80% stenosis | | involving proximal left cephalic vein with no residual anatomic stenosis and good | | hemodynamic results. | | PM | |IMPRESSION: | |1. Successful left brachio cephalic fistulogram and angioplasty of the significant, 4 cm s egmental concentric more than 80% stenosis involving proximal left cephalic vein with no res idual anatomic stenosis and good hemodynamic results. | | | | | + + IR Inj Dialysis Circuit (10/27/2011 2:51 PM PDT) + + | Specimen | + + | | + + + + + | Narrative | Performed At | + + + | [facility] 10/27/2011 2:14 PM | | | HISTORY: 51 years. Male. With chronic kidney disease stage V | | | presents with decreasing KT over V. EXAMINATION Left brachia | | | cephalic fistulogram and angioplasty of the segmental stenosis in | | | proximal left cephalic vein using 7 mm x 4 cm balloon catheter. | | | MEDICATIONS: Isovue-200 42 cc, Heparin 4800 units intravenous, | | | Versed 1 mg intravenous, fentanyl 50-mcg intravenous. | | | Intra-procedure sedation time 27 minutes. The radiation dose 14 | | | mGray, Fluoroscopy time 1.1 minutes. Appropriate physiologic | | | monitoring, maintenance of adequate conscious sedation and | | | independent fdc supervision performed throughout the | | | procedure. PROCEDURE: Informed written consent obtained from | | | the patient after explaining the procedure, risks and alternatives. | | | Patient understood the discussion and expressed a wish to proceed. | | | ?The appropriate side and site was labeled and initialed as an | | | independent process antecedent to the imaging and intervention, as per | | | protocol at this institution.? Patient was placed supine on | | | the x-ray table. The left arm prepped in the usual sterile fashion. | | | Left arm AV fistula was accessed using micropuncture needle and | | | exchanged for 4-Bolivian micropuncture sheath. Initial fistula | | | pressure was obtained and fistulogram obtained from the left cubital | | | fossa to the right atrium. Given the segmental, more than 80% | | | stenosis involving proximal left cephalic vein proximal to previously | | | placed metallic stent, I decided to perform angioplasty of the venous | | | lesion. 4-Bolivian micropuncture sheath was exchanged for 6-Bolivian | | | short sheath over a 0.035, angled Glidewire. 7 mm x 4 cm balloon | | | catheter was advanced over the 0.035, angled Glidewire. Balloon was | | | positioned across stenosis in proximal left cephalic vein and | | | angioplasty was performed. Additional balloon inflation of the focal | | | areas of intimal hyperplasia within the metallic stent was also | | | performed. During inflation of the balloon across the venous | | | anastomosis Reflux evaluation of the arteriovenous anastomosis | | | obtained. Subsequently, balloon was deflated and a final fistulogram | | | obtained from the left cubital fossa to the right atrium. Final | | | fistula pressure and arterial pressures were obtained. All catheters | | | and wires then removed and hemostasis obtained with manual | | | pressure. No immediate procedural complications. Patient | | | tolerated the procedure well. FINDINGS 1. Initial fistula | | | pressure 103/64 mm Hg, arterial pressure 149/82 mm Hg, final fistula | | | pressure 56/36 mm Hg. 2. Left brachio cephalic fistulogram | | | revealed 4 cm, segmental, more than 80% stenosis involving left | | | cephalic vein proximal to previously deployed stent. Less than 30% | | | stenosis from intimal hyperplasia are noted within the metallic stent. | | | Rest of the left cephalic vein, left subclavian vein, left | | | brachia cephalic vein and superior vena cava are widely patent. | | | Arterial anastomosis is widely patent. 3. Successful angioplasty | | | of the 4 cm, segmental, more than 80% concentric stenosis involving | | | proximal left cephalic vein using 7 mm x 4 cm balloon catheter with no | | | residual anatomic stenosis. IMPRESSION: 1. Successful left | | | brachio cephalic fistulogram and angioplasty of the significant, 4 cm | | | segmental concentric more than 80% stenosis involving proximal left | | | cephalic vein with no residual anatomic stenosis and good hemodynamic | | | results. Electronically signed by Zoya Mortensen MD on | | | 10/27/2011 2:47 PM | | + + + + + | Procedure Note | + + | Manoj Weiss Conversion - 01/05/2019 9:02 AM PDT [facility] | | FISTULAGRAM10/27/2011 2:14 PM HISTORY:51 years. Male. With chronic kidney disease stage | | V presents with decreasing KT over V. EXAMINATION Left brachia cephalic fistulogram | | and angioplasty of the segmental stenosis in proximal left cephalic vein using 7 mm x 4 | | cm balloon catheter. MEDICATIONS: Isovue-200 42 cc, Heparin 4800 units intravenous, | | Versed 1 mg intravenous, fentanyl 50-mcg intravenous. Intra-procedure sedation time 27 | | minutes. The radiation dose 14 mGray, Fluoroscopy time 1.1 minutes. Appropriate | | physiologic monitoring, maintenance of adequate conscious sedation and independent | | fdc supervision performed throughout the procedure. PROCEDURE: Informed | | written consent obtained from the patient after explaining the procedure, risks and | | alternatives. Patient understood the discussion and expressed a wish to proceed.?The | | appropriate side and site was labeled and initialed as an independent process antecedent | | to the imaging and intervention, as per protocol at this institution.? Patient was | | placed supine on the x-ray table. The left arm prepped in the usual sterile fashion. | | Left arm AV fistula was accessed using micropuncture needle and exchanged for 4-Bolivian | | micropuncture sheath. Initial fistula pressure was obtained and fistulogram obtained | | from the left cubital fossa to the right atrium. Given the segmental, more than 80% | | stenosis involving proximal left cephalic vein proximal to previously placed metallic | | stent, I decided to perform angioplasty of the venous lesion. 4-Bolivian micropuncture | | sheath was exchanged for 6-Bolivian short sheath over a 0.035, angled Glidewire. 7 mm x 4 | | cm balloon catheter was advanced over the 0.035, angled Glidewire. Balloon was | | positioned across stenosis in proximal left cephalic vein and angioplasty was performed. | | Additional balloon inflation of the focal areas of intimal hyperplasia within the | | metallic stent was also performed. During inflation of the balloon across the venous | | anastomosis Reflux evaluation of the arteriovenous anastomosis obtained. Subsequently, | | balloon was deflated and a final fistulogram obtained from the left cubital fossa to the | | right atrium. Final fistula pressure and arterial pressures were obtained. All | | catheters and wires then removed and hemostasis obtained with manual pressure. No | | immediate procedural complications. Patient tolerated the procedure well. FINDINGS1. | | Initial fistula pressure 103/64 mm Hg, arterial pressure 149/82 mm Hg, final fistula | | pressure 56/36 mm Hg.2. Left brachio cephalic fistulogram revealed 4 cm, segmental, | | more than 80% stenosis involving left cephalic vein proximal to previously deployed | | stent. Less than 30% stenosis from intimal hyperplasia are noted within the metallic | | stent. Rest of the left cephalic vein, left subclavian vein, left brachia cephalic vein | | and superior vena cava are widely patent. Arterial anastomosis is widely patent.3. | | Successful angioplasty of the 4 cm, segmental, more than 80% concentric stenosis | | involving proximal left cephalic vein using 7 mm x 4 cm balloon catheter with no | | residual anatomic stenosis. IMPRESSION:1. Successful left brachio cephalic fistulogram | | and angioplasty of the significant, 4 cm segmental concentric more than 80% stenosis | | involving proximal left cephalic vein with no residual anatomic stenosis and good | | hemodynamic results. | | PM | |IMPRESSION: | |1. Successful left brachio cephalic fistulogram and angioplasty of the significant, 4 cm s egmental concentric more than 80% stenosis involving proximal left cephalic vein with no res idual anatomic stenosis and good hemodynamic results. | | | | | + + documented in this encounter Visit Diagnoses + + | Diagnosis | + + | ESRD (end stage renal disease) (HCC) End stage renal disease | + + documented in this encounter
--- OUTSIDE RECORDS SUMMARY | ~2019-05-09 | XMS | Encounter Summary ---
Demographics + + + | Address | [address] | | | [place] [address] | + + + | Home Phone | | + + + | Preferred Language | Unknown | + + + | Marital Status | Unknown | + + + | Scientology Affiliation | Unknown | + + + | Race | Unknown | + + + | Ethnic Group | Unknown | + + + Author + + + | Author | [facility] | | | and [place] | + + + | Organization | [facility] | | | and [place] | + + + | Address | Unknown | + + + | Phone | Unavailable | + + + Support + + +---------+ + | Name | Relationship | Address | Phone | + + +---------+ + | Olesyacderic Lamb | ECON | Unknown | | + + +---------+ + | Fanny Peace | ECON | Unknown | | + + +---------+ + Care Team Providers + +------+ + | Care Global Climate Change Analyst Name | Role | Phone | + +------+ + | Oziel Michael MD | PCP | | + +------+ + Encounter Details +--------+ + + + + | Date | Type | Department | Care Team | Description | +--------+ + + + + | 06/08/ | Orders Only | [facility] | Alexx Gutierrez MD | | | 2018 | | NEPRHOLOGY [place] | [address] | | | | | [address] | [address] [place], [place] | | | | | [address] [place], [place] | [address] | | | | | [address] | | | | | | [phone] | | | +--------+ + + + [...] 2020 | Visit | | [address] [facility] | | | | | | [address] [place] | | | | | | [address] | | | | | | | | +--------+---------+ + + + documented as of this encounter Visit Diagnoses Not on filedocumented in this encounter"
--- OUTSIDE RECORDS SUMMARY | ~2019-05-09 | XMS | Encounter Summary ---
Demographics + + + | Address | [address] | | | [place] [address] | + + + | Home Phone | | + + + | Preferred Language | Unknown | + + + | Marital Status | Unknown | + + + | Latter Day Affiliation | Unknown | + + + | Race | Unknown | + + + | Ethnic Group | Unknown | + + + Author + + + | Author | [facility] | | | and [place] | + + + | Organization | [facility] | | | and [...] Team Providers + +------+ + | Care Firer Kiln Name | Role | Phone | + +------+ + | Oziel Michael MD | PCP | | + +------+ + Encounter Details +--------+ + + + + | Date | Type | Department | Care Team | Description | +--------+ + + + + | 01/10/ | Orders Only | [facility] | Alexx Gutierrez MD | | | 2017 | | NEPHROLOGY [place] | [address] [place] | | | | | [address] [place] | [address] [place], [place] | | | | | [address] [place], [place] | [address] | | | | | [address] | | | | | | [phone] | | | +--------+ + + + [...] | | | | | | [address] [place], [place] | | | | | | [address] | | | | | | | | +--------+---------+ + + + documented as of this encounter Procedures + +--------+ + + + | Procedure Name | Priori | Date/Time | Associated Diagnosis | Comments | | | ty | | | | + +--------+ + + + | EXTERNAL LAB: | Routin | 01/10/2018 | | Results for this | | TACROLIMUS LEVEL, | e | 8:15 AM | | procedure are in the | | LC-MS/MS | | PDT | | results section. | + +--------+ + + + documented in this encounter Results External Lab: Tacrolimus Level, LC-MS/MS (01/10/2018 8:15 AM PDT) + +-------+ + + + | Component | Value | Ref Range | Performed | Pathologist | | | | | At | Signature | + +-------+ + + + | Tacrolimus | 6.2 | | EXTERNAL | | | Level [...]
--- OUTSIDE RECORDS SUMMARY | ~2019-05-09 | XMS | Encounter Summary ---
Demographics + + + | Address | [address] | | | [place] [address] | + + + | Home Phone | | + + + | Preferred Language | Unknown | + + + | Marital Status | Unknown | + + + | Mormonism Affiliation | Unknown | + + + | Race | Unknown | + + + | Ethnic Group | Unknown | + + + Author + + + | Author | [facility] | | | and [place] | + + + | Organization | [facility] | | | [...] Team Providers + +------+ + | Care Fats And Oils Loader Name | Role | Phone | + +------+ + PCP | Unavailable | + +------+ + Encounter Details +--------+ + + + + | Date | Type | Department | Care Team | Description | +--------+ + + + + | 05/24/ | Hospital | [facility] | Conversion | | | 2011 | Encounter | CENTER [facility] OP | Transaction, | | | | | [address] | Provider Unknown | | | | | [place], [place] | [phone] | | | | | [address] | | | | | | [phone] | Alexx Gutierrez MD | | | | | | [address] [place] | | | | | | [address] [place], [place] | | | | | | [id number] | | | | | | | [...] documented as of this encounter Discharge Summaries Daniele Pemberton NP - 05/24/2011 3:48 PM PST Discharge Summaries by Daniele Pemberton NP at 05/24/11 1548 Author: Daniele Pemberton NP Service: Interventional Radiology Author Type: Nurse Practi parvinmanish Filed: 05/24/11 1549 Date of Service: 05/24/111547 Status: Signed Locker Room Supervisor: Daniele Pemberton NP (Nurse Practitioner) [facility] Service: Interventional Radiology Post-Procedure Discharge Note DISCHARGE DIAGNOSES: ESRD on dialysis Procedures: 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 The patient is anticipated to continue to meet d ischarge criteria per protocol as assessed by nursing and may be discharged at that time wit h designated caregiver. Vital signs: BP 120/69 | Pulse 85 | Temp(Src) 98.3 F (36.8 C) (Temporal) | Resp 16 | Ht 1.727 m (5' 8") | Wt 95.255 kg (210 lb) | BMI 31.93 kg/m2 | SpO2 100% Disposition: Home Condition: Stable Code Status: No Order Follow up: Alexx Gutierrez MD [address] [facility], [facility] [address] [place] [address] Discharge Medications: Current Discharge Medication List CONTINUE these medications which have NOT CHANGED Details amlodipine (NORVASC) 10 MG tablet Take 10 mg by mouth daily. B Xyuzqca-E-Fkuax Acid (STERLING-BRITT PO) Take by mouth daily. Cholecalciferol (VITAMIN D-3 PO) Take 1 tablet by mouth. furosemide (LASIX) 80 MG tablet Take 80 mg by mouth daily. lisinopril (PRINIVIL,ZESTRIL) 20 MG tablet Take 20 mg by mouth daily. sevelamer (RENVELA) 800 MG tablet Take 800 mg by mouth 3 (three) times daily with meals. DANIELE PEMBERTON NP 05/24/2011 3:48 PM documented in th is encounter Medications [...] 2019 | Visit | | [address] [facility] | | | | | | [address] [place] | | | | | | [address] | | | | | | | | +--------+---------+ + + + documented as of this encounter Procedures + +--------+ + + + | Procedure Name | Priori | Date/Time | Associated Diagnosis | Comments | | | ty | | | | + +--------+ + + + | IR INJECTION | Routin | 05/24/2011 | | Results for this | | DIALYSIS CIRCUIT W | e | 3:10 PM | | procedure are in the | | ANGIOPLASTY | | PST | | results section. | + +--------+ + + + | IR INJECTION | Routin | 05/24/2011 | | Results for this | | DIALYSIS CIRCUIT | e | 3:10 PM | | procedure are in the | | | | PST | | results section. | + +--------+ + + + documented in this encounter Results IR Inj Dialysis Circuit w Angioplasty (05/24/2011 3:10 PM PST) + + | Specimen | + + | | + + + + + | Narrative | Performed At | + + + | PROCEDURE/EXAMINATION: Left brachial cephalic AV fistulogram, | | | balloon angioplasty of the mid cephalic vein. HISTORY/INDICATION: | | | 50 years with end-stage renal disease, who had been dialyzed | | | through a left brachial cephalic AV fistula. However, increased | | | venous pressures have been noted on the recent dialysis sessions. | | | Therefore, angiography and possible intervention is requested. | | | COMPARISON: None. MEDICATIONS: Isovue-250 32 cc, Heparin 4700 | | | units intravenous, Versed 1 mg intravenous, fentanyl 50-mcg | | | intravenous. Intra-procedure sedation time 25 minutes. The | | | radiation dose 27 mGray, Fluoroscopy time 5.6 minutes. Appropriate | | | physiologic monitoring, maintenance of adequate conscious sedation, | | | and independent prison supervision was performed throughout | | | the procedure. PROCEDURE: An informed written consent had been | | | obtained from the patient prior to the procedure. Patient was | | | placed supine on the interventional table and his left upper | | | extremity was prepped and draped in the usual sterile fashion. After | | | giving local anesthesia, the fistula was accessed directed centrally | | | with the standard 4-Bahamian micropuncture set. Contrast was then | | | injected through the micro-dilator and a digital imaging over the | | | left arm and upper chest were performed. Initial fistula pressure | | | was 129/74 mm Hg. Arterial pressure was 156/91 mm Hg. A reflux run of | | | the arterial anastomosis was also performed. Imaging revealed a | | | long segment moderate to severe narrowing of the outflow cephalic | | | vein at the mid humerus level. Otherwise, the arterial anastomosis | | | and the central venous outflow was widely patent. Access was then | | | secured with a 4-Bahamian sheath. The area of stenosis was traversed | | | with a 0.014 inch wire. The mid cephalic vein was subsequently | | | angioplastied using a 7-mm and then an 8-mm diameter angioplasty | | | balloon. Follow-up angiogram revealed no significant residual | | | stenosis. The final fistula pressure was 98/53 mm Hg. Wires and | | | catheters were removed. Sheath was removed as well and hemostasis | | | achieved with a 3-0 pursestring stitch. A sterile dressing was | | | applied. There were no immediate procedural complications. Patient | | | tolerated the procedure well. FINDINGS: 1. Initial | | | fistulogram revealed a long segment moderate to severe narrowing of | | | the mid cephalic vein. Initial fistula pressure of 129/74 mm Hg, | | | with an arterial pressure of 156/91 mm Hg. 2. Final fistulogram | | | showed no significant residual stenosis. Final fistula pressure | | | was 98/53 mm Hg. 3. At least two prominent collaterals were seen | | | arising from the mid cephalic vein, draining blood into the basilic | | | vein. If in the future, the mid cephalic vein remains small in | | | caliber and shows recurrent stenoses, consideration will be given to | | | occluding these collaterals. IMPRESSION: 1. Successful | | | percutaneous transluminal balloon angioplasty of the long segment mid | | | cephalic vein stenoses. | | + + + + + | Procedure Note | + + | Manoj Weiss Conversion - 01/05/2019 9:02 AM PDT PROCEDURE/EXAMINATION: Left brachial | | cephalic AV fistulogram, balloonangioplasty of the mid cephalic vein. | | HISTORY/INDICATION: 50 years with end-stage renal disease, who had beendialyzed through | | a left brachial cephalic AV fistula. However, increasedvenous pressures have been | | noted on the recent dialysis sessions.Therefore, angiography and possible intervention | | is requested. COMPARISON: None. MEDICATIONS: Isovue-250 32 cc, Heparin 4700 units | | intravenous, Versed 1 mgintravenous, fentanyl 50-mcg intravenous. Intra-procedure | | sedation time 25minutes. The radiation dose 27 mGray, Fluoroscopy time 5.6 | | minutes.Appropriate physiologic monitoring, maintenance of adequate conscioussedation, | | and independent prison supervision was performedthroughout the procedure. | | PROCEDURE: An informed written consent had been obtained from the patient prior to | | theprocedure. Patient was placed supine on the interventional table and his left | | upperextremity was prepped and draped in the usual sterile fashion. Aftergiving local | | anesthesia, the fistula was accessed directed centrally withthe standard 4-Bahamian | | micropuncture set. Contrast was then injectedthrough the micro-dilator and a digital | | imaging over the left arm and upperchest were performed. Initial fistula pressure was | | 129/74 mm Hg. Arterialpressure was 156/91 mm Hg. A reflux run of the arterial | | anastomosis wasalso performed. Imaging revealed a long segment moderate to severe | | narrowing of the outflowcephalic vein at the mid humerus level. Otherwise, the | | arterialanastomosis and the central venous outflow was widely patent. Access was then | | secured with a 4-Bahamian sheath. The area of stenosis wastraversed with a 0.014 inch | | wire. The mid cephalic vein was subsequentlyangioplastied using a 7-mm and then an 8-mm | | diameter angioplasty balloon.Follow-up angiogram revealed no significant residual | | stenosis. The finalfistula pressure was 98/53 mm Hg. Wires and catheters were removed. | | Sheathwas removed as well and hemostasis achieved with a 3-0 pursestring stitch.A | | sterile dressing was applied. There were no immediate procedural complications. Patient | | tolerated theprocedure well. FINDINGS: 1. Initial fistulogram revealed a long segment | | moderate to severe narrowingof the mid cephalic vein. Initial fistula pressure of | | 129/74 mm Hg, withan arterial pressure of 156/91 mm Hg. 2. Final fistulogram showed no | | significant residual stenosis. Finalfistula pressure was 98/53 mm Hg. 3. At least two | | prominent collaterals were seen arising from the midcephalic vein, draining blood into | | the basilic vein. If in the future, themid cephalic vein remains small in caliber and | | shows recurrent stenoses,consideration will be given to occluding these collaterals. | | IMPRESSION: 1. Successful percutaneous transluminal balloon angioplasty of the | | longsegment mid cephalic vein stenoses. Electronically signed by Shashi Bruner DO on | | 05/24/2011 5:06 PM | |traversed with a 0.014 inch wire. The mid cephalic vein was subsequently | |angioplastied using a 7-mm and then an 8-mm diameter angioplasty balloon. | |Follow-up angiogram revealed no significant residual stenosis. The final | |fistula pressure was 98/53 mm Hg. Wires and catheters were removed. Sheath | |was removed as well and hemostasis achieved with a 3-0 pursestring stitch. | |A sterile dressing was applied. | | | |There were no immediate procedural complications. Patient tolerated the | |procedure well. | | | |FINDINGS: | | | |1. Initial fistulogram revealed a long segment moderate to severe narrowing | |of the mid cephalic vein. Initial fistula pressure of 129/74 mm Hg, with | |an arterial pressure of 156/91 mm Hg. | | | |2. Final fistulogram showed no significant residual stenosis. Final | |fistula pressure was 98/53 mm Hg. | | | |3. At least two prominent collaterals were seen arising from the mid | |cephalic vein, draining blood into the basilic vein. If in the future, the | |mid cephalic vein remains small in caliber and shows recurrent stenoses, | |consideration will be given to occluding these collaterals. | | | |IMPRESSION: | | | |1. Successful percutaneous transluminal balloon angioplasty of the long | |segment mid cephalic vein stenoses. | | | | | + + IR Inj Dialysis Circuit (05/24/2011 3:10 PM PST) + + | Specimen | + + | | + + + + + | Narrative | Performed At | + + + | PROCEDURE/EXAMINATION: Left brachial cephalic AV fistulogram, | | | balloon angioplasty of the mid cephalic vein. HISTORY/INDICATION: | | | 50 years with end-stage renal disease, who had been dialyzed | | | through a left brachial cephalic AV fistula. However, increased | | | venous pressures have been noted on the recent dialysis sessions. | | | Therefore, angiography and possible intervention is requested. | | | COMPARISON: None. MEDICATIONS: Isovue-250 32 cc, Heparin 4700 | | | units intravenous, Versed 1 mg intravenous, fentanyl 50-mcg | | | intravenous. Intra-procedure sedation time 25 minutes. The | | | radiation dose 27 mGray, Fluoroscopy time 5.6 minutes. Appropriate | | | physiologic monitoring, maintenance of adequate conscious sedation, | | | and independent prison supervision was performed throughout | | | the procedure. PROCEDURE: An informed written consent had been | | | obtained from the patient prior to the procedure. Patient was | | | placed supine on the interventional table and his left upper | | | extremity was prepped and draped in the usual sterile fashion. After | | | giving local anesthesia, the fistula was accessed directed centrally | | | with the standard 4-Bahamian micropuncture set. Contrast was then | | | injected through the micro-dilator and a digital imaging over the | | | left arm and upper chest were performed. Initial fistula pressure | | | was 129/74 mm Hg. Arterial pressure was 156/91 mm Hg. A reflux run of | | | the arterial anastomosis was also performed. Imaging revealed a | | | long segment moderate to severe narrowing of the outflow cephalic | | | vein at the mid humerus level. Otherwise, the arterial anastomosis | | | and the central venous outflow was widely patent. Access was then | | | secured with a 4-Bahamian sheath. The area of stenosis was traversed | | | with a 0.014 inch wire. The mid cephalic vein was subsequently | | | angioplastied using a 7-mm and then an 8-mm diameter angioplasty | | | balloon. Follow-up angiogram revealed no significant residual | | | stenosis. The final fistula pressure was 98/53 mm Hg. Wires and | | | catheters were removed. Sheath was removed as well and hemostasis | | | achieved with a 3-0 pursestring stitch. A sterile dressing was | | | applied. There were no immediate procedural complications. Patient | | | tolerated the procedure well. FINDINGS: 1. Initial | | | fistulogram revealed a long segment moderate to severe narrowing of | | | the mid cephalic vein. Initial fistula pressure of 129/74 mm Hg, | | | with an arterial pressure of 156/91 mm Hg. 2. Final fistulogram | | | showed no significant residual stenosis. Final fistula pressure | | | was 98/53 mm Hg. 3. At least two prominent collaterals were seen | | | arising from the mid cephalic vein, draining blood into the basilic | | | vein. If in the future, the mid cephalic vein remains small in | | | caliber and shows recurrent stenoses, consideration will be given to | | | occluding these collaterals. IMPRESSION: 1. Successful | | | percutaneous transluminal balloon angioplasty of the long segment mid | | | cephalic vein stenoses. | | + + + + + | Procedure Note | + + | Abhishek, Manoj Conversion - 01/05/2019 9:02 AM PDT PROCEDURE/EXAMINATION: Left brachial | | cephalic AV fistulogram, balloonangioplasty of the mid cephalic vein. | | HISTORY/INDICATION: 50 years with end-stage renal disease, who had beendialyzed through | | a left brachial cephalic AV fistula. However, increasedvenous pressures have been | | noted on the recent dialysis sessions.Therefore, angiography and possible intervention | | is requested. COMPARISON: None. MEDICATIONS: Isovue-250 32 cc, Heparin 4700 units | | intravenous, Versed 1 mgintravenous, fentanyl 50-mcg intravenous. Intra-procedure | | sedation time 25minutes. The radiation dose 27 mGray, Fluoroscopy time 5.6 | | minutes.Appropriate physiologic monitoring, maintenance of adequate conscioussedation, | | and independent prison supervision was performedthroughout the procedure. | | PROCEDURE: An informed written consent had been obtained from the patient prior to | | theprocedure. Patient was placed supine on the interventional table and his left | | upperextremity was prepped and draped in the usual sterile fashion. Aftergiving local | | anesthesia, the fistula was accessed directed centrally withthe standard 4-Bahamian | | micropuncture set. Contrast was then injectedthrough the micro-dilator and a digital | | imaging over the left arm and upperchest were performed. Initial fistula pressure was | | 129/74 mm Hg. Arterialpressure was 156/91 mm Hg. A reflux run of the arterial | | anastomosis wasalso performed. Imaging revealed a long segment moderate to severe | | narrowing of the outflowcephalic vein at the mid humerus level. Otherwise, the | | arterialanastomosis and the central venous outflow was widely patent. Access was then | | secured with a 4-Bahamian sheath. The area of stenosis wastraversed with a 0.014 inch | | wire. The mid cephalic vein was subsequentlyangioplastied using a 7-mm and then an 8-mm | | diameter angioplasty balloon.Follow-up angiogram revealed no significant residual | | stenosis. The finalfistula pressure was 98/53 mm Hg. Wires and catheters were removed. | | Sheathwas removed as well and hemostasis achieved with a 3-0 pursestring stitch.A | | sterile dressing was applied. There were no immediate procedural complications. Patient | | tolerated theprocedure well. FINDINGS: 1. Initial fistulogram revealed a long segment | | moderate to severe narrowingof the mid cephalic vein. Initial fistula pressure of | | 129/74 mm Hg, withan arterial pressure of 156/91 mm Hg. 2. Final fistulogram showed no | | significant residual stenosis. Finalfistula pressure was 98/53 mm Hg. 3. At least two | | prominent collaterals were seen arising from the midcephalic vein, draining blood into | | the basilic vein. If in the future, themid cephalic vein remains small in caliber and | | shows recurrent stenoses,consideration will be given to occluding these collaterals. | | IMPRESSION: 1. Successful percutaneous transluminal balloon angioplasty of the | | longsegment mid cephalic vein stenoses. Electronically signed by Shashi Bruner DO on | | 05/24/2011 5:06 PM | |traversed with a 0.014 inch wire. The mid cephalic vein was subsequently | |angioplastied using a 7-mm and then an 8-mm diameter angioplasty balloon. | |Follow-up angiogram revealed no significant residual stenosis. The final | |fistula pressure was 98/53 mm Hg. Wires and catheters were removed. Sheath | |was removed as well and hemostasis achieved with a 3-0 pursestring stitch. | |A sterile dressing was applied. | | | |There were no immediate procedural complications. Patient tolerated the | |procedure well. | | | |FINDINGS: | | | |1. Initial fistulogram revealed a long segment moderate to severe narrowing | |of the mid cephalic vein. Initial fistula pressure of 129/74 mm Hg, with | |an arterial pressure of 156/91 mm Hg. | | | |2. Final fistulogram showed no significant residual stenosis. Final | |fistula pressure was 98/53 mm Hg. | | | |3. At least two prominent collaterals were seen arising from the mid | |cephalic vein, draining blood into the basilic vein. If in the future, the | |mid cephalic vein remains small in caliber and shows recurrent stenoses, | |consideration will be given to occluding these collaterals. | | | |IMPRESSION: | | | |1. Successful percutaneous transluminal balloon angioplasty of the long | |segment mid cephalic vein stenoses. | | | | | + + documented in this encounter Visit Diagnoses Not on filedocumented in this encounter
--- OUTSIDE RECORDS SUMMARY | ~2019-05-09 | XMS | Encounter Summary ---
Demographics + + + | Address | [address] | | | [place] [address] | + + + | Home Phone | | + + + | Preferred Language | Unknown | + + + | Marital Status | Unknown | + + + | Cheondoism Affiliation | Unknown | + + + | Race | Unknown | + + + | Ethnic Group | Unknown | + + + Author + + + | Author | [facility] | | | and [place] | + + + | Organization | [facility] | | | [...] Team Providers + +------+ + | Care Impact Hammer Operator Name | Role | Phone | + +------+ + PCP | Unavailable | + +------+ + Encounter Details +--------+ + + + + | Date | Type | Department | Care Team | Description | +--------+ + + + + | 06/13/ | Orders Only | [facility] | Alexx Gutierrez MD | | | 2019 | | [facility] [place] | [address] | | | | | [address] | [address] [place], [place] | | | | | [address] [place], [place] | [address] | | | | | [address] | | | | | | [phone] | | | +--------+ + + + [...] 2019 | Visit | | [address] [facility] | | | | | | [address] [place], [place] | | | | | | [address] | | | | | | | | +--------+---------+ + + + documented as of this encounter Procedures + +--------+ + + + | Procedure Name | Priori | Date/Time | Associated Diagnosis | Comments | | | ty | | | | + +--------+ + + + | EXTERNAL LAB: | Routin | 06/13/2018 | | Results for this | | TACROLIMUS LEVEL, | e | 7:10 AM | | procedure are in the | | LC-MS/MS | | PST | | results section. | + +--------+ + + + | EXTERNAL LAB: CBC | Routin | 06/13/2018 | | Results for this | | | e | 7:10 AM | | procedure are in the | | | | PST | | results section. | + +--------+ + + + | URINALYSIS WITH | Routin | 06/13/2018 | | Results for this | | MICROSCOPIC IF | e | 7:10 AM | | procedure are in the | | INDICATED | | PST | | results section. | + +--------+ + + + | MAGNESIUM | Routin | 06/13/2018 | | Results for this | | | e | 7:10 AM | | procedure are in the | | | | PST | | results section. | + +--------+ + + + | RENAL FUNCTION PANEL | Routin | 06/13/2018 | | Results for this | | | e | 7:10 AM | | procedure are in the | | | | PST | | results section. | + +--------+ + + + documented in this encounter Results External Lab: Tacrolimus Level, LC-MS/MS (06/13/2018 7:10 AM PST) + +-------+ + + + | Component | Value | Ref Range | Performed | Pathologist | | | | | At | Signature | + +-------+ + + + | Tacrolimus | 11.3 | | EXTERNAL | | | Level [...] + + Urinalysis with Microscopic if Indicated (06/13/2018 7:10 AM PST) + + + + + + | Component | Value | Ref Range | Performed | Pathologist | | | | | At | Signature | + + + + + + | Color | Yellow | | EXTERNAL | | | | | | LAB | | + + + + + + | Clarity | Slightly Cloudy | | EXTERNAL | | | | | | LAB | | + + + + + + | Spec Grav, | 1.018 | 1.005 - 1.030 | EXTERNAL | [...] + + + + | Total | 300 | | EXTERNAL | | | Protein | | | LAB | | + + + + + + | pH, Urine | 5 | 5 - 9 | EXTERNAL | [...] | + +---------+ + + External Lab: [facility]ILUZ (06/13/2018 7:10 AM PST) + + + + + + | Component | Value | Ref Range | Performed | Pathologist | | | | | At | Signature | + + + + + + | WBC | 3.0 (A) | 4.5 - 11.0 10 | EXTERNAL | | | | | | LAB | | + + + + + + | RED CELL | 4.81 | 4.3 - 5.7 10 | EXTERNAL | | | COUNT | | | LAB | | + + + + + + | Hgb | 13.7 | 13.5 - 18.0 | EXTERNAL | | | | | g/dL | LAB | | + + + + + + | Hematocrit, | 42.1 | 41 - 50 % | EXTERNAL | | | POC | | | LAB | | + + + + + + | MCV | 87.6 | 81 - 99 fL | EXTERNAL | | | | | | LAB | | + + + + + + | MCH | 28 | 27 - 33 pg | EXTERNAL | | | | | | LAB | | + + + + + + | MCHC | 33 | 30 - 36 g/dL | EXTERNAL | | | | | | LAB | | + + + + + + | Platelet | 153 | 140 - 440 K/ L | EXTERNAL | | | Count | | | LAB | | | Plasma | | | | | + + + + + + | RDW-CV | 15.1 (A) | 10.5 - 15.0 % | [...] + + + | % Segmented | 48.4 | 39 - 80 % | EXTERNAL | | | | | | LAB | | | Neutrophils | | | | | + + + + + + | % | 34.7 | 24 - 44 % | EXTERNAL | | | Lymphocytes | | | LAB | | + + + + + + | % Monocytes | 14.9 (A) | 0 - 12 % | EXTERNAL | | | | | | LAB | | + + + + + + | % | 1.2 | 0 - 6 % | EXTERNAL | | | Eosinophils | | | LAB | | + + + + + + | % Basophils | 0.8 | 0 - 2 % | EXTERNAL [...] | | + +---------+ + + Magnesium (06/13/2018 7:10 AM PST) + +---------+ + + + | Component | Value | Ref Range | Performed | Pathologist | | | | | At | Signature | + +---------+ + + + | Magnesium | 1.5 (A) | 1.7 - 2.5 mg/dL | [...] + +---------+ + + Renal Function Panel (06/13/2018 7:10 AM PST) + + + + + + | Component | Value | Ref Range | Performed | Pathologist | | | | | At | Signature | + + + + + + | Glucose, | 148 (A) | 70 - 100 mg/dL | EXTERNAL | | | Fasting | | | LAB | | + + + + + + | BUN | 21 | 6 - 23 mg/dL | EXTERNAL | | | | | | LAB | | + + + + + + | Creatinine | 1.70 (A) | 0.70 - 1.33 | EXTERNAL | | | | | mg/dL | LAB | | + + + + + + | PHOSPHORUS | 3.6 | 2.5 - 5.0 mg/dL | EXTERNAL | | | | | | LAB | | + + + + + + | Albumin | 3.3 (A) | 3.5 - 5.0 | EXTERNAL | | | | | | LAB | | + + + + + + | Na | 135 | 132 - 143 | EXTERNAL | | | | | mmol/L | LAB | | + + + + + + | K | 4.0 | 3.6 - 5.1 | EXTERNAL | | | | | mmol/L | LAB | | + + + + + + | Cl | 99 | 95 - 112 mmol/L | EXTERNAL | | | | | | LAB | | + + + + + + | CO2 | 24 | 19 - 31 mmol/L | EXTERNAL | | | | | | LAB | | + + + + + + | Anion Gap | 16.0 (A) | 70 - 100 mmol/L | EXTERNAL | | | | | | LAB | | + + + + + + | eGFR if not | | | EXTERNAL | | | | | | LAB | | | [place] | | | | | + + + + + + | Phosphorus, | | | EXTERNAL | | | Inorganic | | | LAB | | + + + + + + | BUN/Creatin | 12.4 | 6.0 - 28.6 | EXTERNAL | | | ine Ratio | | | LAB | | + + + + + + | Calcium | 8.8 | 8.5 - 10.3 | EXTERNAL | | | | | mg/dL | LAB | | + + + + + + | Estimated | 42 (A) | 60 - 140 mg/dL | [...]
--- OUTSIDE RECORDS SUMMARY | ~2019-05-09 | XMS | Encounter Summary ---
Demographics + + + | Address | [address] | | | [place] [address] | + + + | Home Phone | | + + + | Preferred Language | Unknown | + + + | Marital Status | Single | + + + | Mandaeism Affiliation | Unknown | + + + | Race | Black or | + + + | Ethnic Group | Not or | + + + Author + + + | Author | [facility] | + + + | Organization | [facility] | + + + | Address | Unknown | + + + | Phone | Unavailable | + + + Support + + +---------+ + | Name | Relationship | Address | Phone | + + +---------+ + | Olesya Lamb | ECON | Unknown | | + + +---------+ + Care Team Providers + +------+ + | Care Prepared Foods Team Leader Name | Role | Phone | + +------+ + | Oziel Michael MD | PCP | | + +------+ + Encounter Details +--------+ + + + + | Date | Type | Department | Care Team | Description | +--------+ + + + + | 05/04/ | Lab | LAB [facility] | | | | 2015 | Requisition | [facility] | | | | | | [address] | | | | | | [address] [place], | | | | | | [place] [address] | | | +--------+ + + + [...] FLOW HLA II AB | Routin | 05/04/2016 | | | | AG ID, BLOOD | e | 10:44 AM | | | | | | PST | | | + +--------+ + + + | LIT FLOW HLA I AB AG | Routin | 05/04/2016 | | Results for this | | ID, BLOOD | e | 10:44 AM | | procedure are in the | | | | PST | | results section. | + +--------+ + + + documented in this encounter Results LIT FLOW HLA II AB AG ID, BLOOD (05/04/2016 10:44 AM PST) + + | Specimen | + + | Blood - Blood | | (substance) | + + + + + + + | Performing | Address | City/State/Zipcode | Phone Number | | Organization | | | | + + + + + | [facility] - | [address] | [place] [address] | | | IMMUNOGENETICS[facility]TRANS | [address] | | | | [facility] | | | | + + + + + LIT FLOW HLA I AB AG ID, BLOOD (05/04/2016 10:44 AM PST) + + + + + [...] | + + + + + | [facility] - | [address] | [place] [address] | | | [facility]UN[facility]ENETICS[facility]TRANS | [address] | | | | [facility] | | | | + + + + + documented in this encounter Visit Diagnoses Not on filedocumented in this encounter"
--- OUTSIDE RECORDS SUMMARY | ~2019-05-09 | XMS | Encounter Summary ---
Demographics + + + | Address | [address] | | | [place] [address] | + + + | Home Phone | | + + + | Preferred Language | Unknown | + + + | Marital Status | Unknown | + + + | Spiritism Affiliation | Unknown | + + + | Race | Unknown | + + + | Ethnic Group | Unknown | + + + Author + + + | Author | [facility] | | | and [place] | + + + | Organization | [facility] | | [...] Team Providers + +------+ + | Care Retail Sales Specialist Name | Role | Phone | + +------+ + PCP | Unavailable | + +------+ + Encounter Details +--------+ + + + + | Date | Type | Department | Care Team | Description | +--------+ + + + + | 01/13/ | Hospital | [facility] | Conversion | ESRD (end stage | | 2015 | Encounter | CENTER CV INTRA OP | Transaction, | renal disease) ([facility]) | | | | [address] | Provider Unknown | | | | | [place], [place] | [phone] | | | | | [address] | | | | | | [phone] | Noé Malik MD | | | | | | [address] | | | | | | [place], [place] | | | | | | [id number] | | | | | | | [...] Progress Notes Conversion Transaction, Provider Unknown - 01/13/2015 1:43 PM PDTFormatting of this note m ight be different from the original. Nurse Progress Note by Alice Conrad RN at 01/13/15 5060 Author: Alice Conrad RN Service: Interventional Radiology Author Type: Registered Nu rse Filed: 01/13/15 3814 Date of Service: 01/13/151342 Status: Signed Cad Designer: Alice Conrad RN (Registered Nurse) Pt tolerated juice well post-procedure, discharge instructions given both written and orall y, will d/c by ambulation with family. onver svitlana Transaction, Provider Unknown - 01/13/2015 1:20 PM PDT Nurse Progress Note by Kathleen Ag RN at 01/13/15 1431 Author: Kathleen Ag RN Service: (none) Author Type: Registered Nurse Filed: 01/13/151319 Date of Service: 01/13/151319 Status: Signed Cad Designer: Kathleen Ag RN (Registered Nurse) Purse string suture removed, hemostasis obtained, dressing applied. docume nted in this encounter Plan of Treatment +--------+---------+ + + + | Date | Type | Specialty | Care Team | Description | +--------+---------+ + + + | 05/20/ | Office | Nephrology | Alexx Gutierrez MD | | | 2019 | Visit | | [address] [facility] | | | | | | [address] [place], [place] | | | | | | [address] | | | | | | | | +--------+---------+ + + + documented as of this encounter Procedures + +--------+ + + + | Procedure Name | Priori | Date/Time | Associated Diagnosis | Comments | | | ty | | | | + +--------+ + + + | IR INJECTION | Routin | 01/13/2015 | | Results for this | | DIALYSIS CIRCUIT | e | 11:56 AM | | procedure are in the | | | | PDT | | results section. | + +--------+ + + + | US GUIDED VASCULAR | Routin | 01/13/2015 | | Results for this | | ACCESS | e | 11:54 AM | | procedure are in the | | | | PDT | | results section. | + +--------+ + + + | PROTIME INR | Routin | 01/13/2015 | | Results for this | | | e | 10:10 AM | | procedure are in the | | | | PDT | | results section. | + +--------+ + + + | CBC NO DIFFERENTIAL | Routin | 01/13/2015 | | Results for this | | | e | 10:10 AM | | procedure are in the | | | | PDT | | results section. | + +--------+ + + + | BASIC METABOLIC | Routin | 01/13/2015 | | Results for this | | PANEL | e | 10:10 AM | | procedure are in the | | | | PDT | | results section. | + +--------+ + + + documented in this encounter Results IR Inj Dialysis Circuit (01/13/2015 11:56 AM PDT) + + | Specimen | + + | | + + + + + | Impressions | Performed At | + + + | Successful cephalic venous angioplasty as described. Ready for | | | dialysis. | | | 12:59 PM | | + + + + + + | Narrative | Performed At | + + + | IR DIALYSIS FISTULAGRAM dated 01/13/2015 11:56 AM CLINICAL DATA: | | | Prolonged bleeding with dialysis. 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 | | | COMPARISON STUDIES: 06/26/2014 PRIMARY FOREIGN EXCHANGE STUDENT COORDINATOR: Noé Malik, | | | , PhD, RPVI OPERATIONS: 1. Limited diagnostic ultrasound of | | | left upper extremity fistula. 2. Ultrasound-guided access of the | | | venous outflow of the personally fistula 3. Left upper extremity | | | fistulogram 4. Left upper extremity cephalic venous angioplasty. | | | PROCEDURE: Informed consent was obtained from the patient. | | | Continuous cardiac monitoring was performed throughout the | | | procedure. Conscious sedation was provided by the nursing staff | | | during the procedure under my supervision. Sedation time:40 | | | minutes Medications: 2 mg Versed IV, 100 mcg Fentanyl IV, 5000 units | | | heparin Contrast:60 cc Isovue 250 Fluoroscopy time:1.6 minutes | | | Radiation dose:99 mGy air kerma Patient was sterilely prepped and | | | draped in usual fashion. Grayscale ultrasound for diagnostic purposes | | | performed of the lower brachiocephalic fistula to evaluate the | | | arteriovenous anastomosis. A site was then selected on the lower | | | portion of the venous outflow for access. The skin was locally | | | anesthetized 1% lidocaine. Real-time micropuncture ultrasound-guided | | | access was obtained. The microsheath was used for initial angiography | | | images of the cephalic venous outflow and central venous vasculature. | | | Recurrent cephalic venous stenosis was identified. The microsheath | | | was exchanged to a 6 Andorran sheath. An 8mm angioplasty balloon was | | | then sequentially inflated over the mid to upper portions of the | | | cephalic venous outflow to the level of the axillary vein | | | confluence. During inflation, retrograde venogram to evaluate the | | | arteriovenous anastomosis was performed. Repeat angiography was | | | performed following angioplasty demonstrating acceptable result. Wires | | | were removed. A temporary pursestring suture was placed. The sheath | | | was removed with immediate hemostasis. FINDINGS: The | | | arteriovenous anastomosis is widely patent by ultrasound ( images in | | | PACS). Ultrasound-guided access met without difficulty. | | | Venography demonstrates a recurrent stenosis over a long segment in | | | the mid upper arm cephalic vein extending to the axillary venous | | | confluence. The central venous vasculature is widely patent. | | | Incidental note is made of prior embolization coils. Following | | | angioplasty, the treated segment has marked improvement in lumen | | | diameter similar to the nonstenotic segment with improved outflow and | | | improved thrill clinically. | | + + + + + | Procedure Note | + + | Abhishek, Rad Conversion - 12/28/2018 2:18 PM PDT IR DIALYSIS FISTULAGRAM dated 01/13/2015 | | 11:56 AM CLINICAL DATA: Prolonged bleeding with dialysis. History of recurrent cephalic | | venous outflow stenosis in left upper extremity brachiocephalic fistula. COMPARISON | | STUDIES: 06/26/2014 PRIMARY FOREIGN EXCHANGE STUDENT COORDINATOR: Noé Malik MD, PhD, RPVI OPERATIONS:1. | | Limited diagnostic ultrasound of left upper extremity fistula.2. Ultrasound-guided | | access of the venous outflow of the personally fistula3. Left upper extremity | | fistulogram4. Left upper extremity cephalic venous angioplasty. PROCEDURE: Informed | | consent was obtained from the patient. Continuous cardiac monitoring was performed | | throughout the procedure. Conscious sedation was provided by the nursing staff during | | the procedure under my supervision. Sedation time:40 minutesMedications: 2 mg Versed IV, | | 100 mcg Fentanyl IV, 5000 units heparin Contrast:60 cc Isovue 250Fluoroscopy time:1.6 | | minutesRadiation dose:99 mGy air kerma Patient was sterilely prepped and draped in usual | | fashion. Grayscale ultrasound for diagnostic purposes performed of the lower | | brachiocephalic fistula to evaluate the arteriovenous anastomosis. A site was then | | selected on the lower portion of the venous outflow for access. The skin was locally | | anesthetized 1% lidocaine. Real-time micropuncture ultrasound-guided access was | | obtained. The microsheath was used for initial angiography images of the cephalic venous | | outflow and central venous vasculature. Recurrent cephalic venous stenosis was | | identified. The microsheath was exchanged to a 6 And[place]ran sheath. An 8mm angioplasty | | balloon was then sequentially inflated over the mid to upper portions of the cephalic | | venous outflow to the level of the axillary vein confluence. During inflation, | | retrograde venogram to evaluate the arteriovenous anastomosis was performed. Repeat | | angiography was performed following angioplasty demonstrating acceptable result. Wires | | were removed. A temporary pursestring suture was placed. The sheath was removed with | | immediate hemostasis. FINDINGS: The arteriovenous anastomosis is widely patent by | | ultrasound ( images in PACS). Ultrasound-guided access met without difficulty. | | Venography demonstrates a recurrent stenosis over a long segment in the mid upper arm | | cephalic vein extending to the axillary venous confluence. The central venous | | vasculature is widely patent. Incidental note is made of prior embolization coils. | | Following angioplasty, the treated segment has marked improvement in lumen diameter | | similar to the nonstenotic segment with improved outflow and improved thrill clinically. | | IMPRESSION: Successful cephalic venous angioplasty as described. Ready for dialysis. | | | |FINDINGS: | | | |The arteriovenous anastomosis is widely patent by ultrasound ( images in PACS). | | | |Ultrasound-guided access met without difficulty. | | | |Venography demonstrates a recurrent stenosis over a long segment in the mid upper arm cepha lic vein extending to the axillary venous confluence. The central venous vasculature is wide ly patent. Incidental note is made of prior embolization coils. | | | |Following angioplasty, the treated segment has marked improvement in lumen diameter similar to the nonstenotic segment with improved outflow and improved thrill clinically. | | | |IMPRESSION: | | | |Successful cephalic venous angioplasty as described. Ready for dialysis. | | | | | + + US Guided Vascular Access (01/13/2015 11:54 AM PDT) + + | Specimen | + + | | + + + + + | Narrative | Performed At | + + + | This Point of Care (POC) ultrasound image has been reviewed and | | | interpreted by the physician identified as the performing physician in | | | the associated interpretation and report. | | + + + + + | Procedure Note | + + | Manoj Weiss Elio - 12/28/2018 2:18 PM PDT This Point of Care (POC) ultrasound | | image has been reviewed andinterpreted by the physician identified as the performing | | physician in theassociated interpretation and report. | | | + + CBC no Differential (01/13/2015 10:10 AM PDT) + + + + + + | Component | Value | Ref Range | Performed | Pathologist | | | | | At | Signature | + + + + + + | WBC | 4.32Comment: Testing | 3.80 - 11.00 | EXTERNAL | | | | performed at [facility];[address] | K/uL | LAB | | | | [address];[place], [place] | | | | | | [address] | | | | + + + + + + | RED CELL | 4.56Comment: Testing | 4.20 - 5.70 | EXTERNAL | | | COUNT | performed at [facility];888 | M/uL | LAB | | | | [address];[place] | | | | | | [address] | | | | + + + + + + | Hgb | 13.9Comment: Testing | 13.2 - 17.0 | EXTERNAL | | | | performed at [facility];888 | g/dL | LAB | | | | [address];[place] | | | | | | [address] | | | | + + + + + + | Hematocrit, | 43.4Comment: Testing | 39.0 - 50.0 % | EXTERNAL | | | POC | performed at [facility];[address] | | LAB | | | | [address];[place] | | | | | | [address] | | | | + + + + + + | MCV | 95.1Comment: Testing | 80.0 - 100.0 fl | EXTERNAL | | | | performed at [facility];[address] | | LAB | | | | [address];[place] | | | | | | [address] | | | | + + + + + + | MCH | 30.5Comment: Testing | 27.0 - 34.0 pg | EXTERNAL | | | | performed at [facility];[address] | | LAB | | | | [address];[place] | | | | | | [address] | | | | + + + + + + | MCHC | 32.1Comment: Testing | 32.0 - 35.5 | EXTERNAL | | | | performed at [facility];888 | g/dL | LAB | | | | [address];[place] | | | | | | [address] | | | | + + + + + + | RDW-CV | 49.4Comment: Testing | 37 - 53 fl | EXTERNAL | | | | performed at [facility];[address] | | LAB | | | | [address];[place] | | | | | | [address] | | | | + + + + + + | Platelet | 201Comment: Testing | 150 - 400 K/uL | EXTERNAL | | | Count | performed at [facility];[address] | | LAB | | | Plasma | [address];[place] | | | | | | [address] | | | | + + + + + + | MPV | 9.3Comment: Testing | fl | EXTERNAL | | | | performed at [facility];[address] | | LAB | | | | [address];[place] | | | | | | [address] | | | | + + + + + + + + | Specimen | + + | | + + + +---------+ + + | Performing | Address | City/State/Zipcode | Phone Number | | Organization | | | | + +---------+ + + | EXTERNAL LAB | | | | + +---------+ + + Protime INR (01/13/2015 10:10 AM PDT) + + + + + + | Component | Value | Ref Range | Performed | Pathologist | | | | | At | Signature | + + + + + + | INR | 1.0Comment: REFERENCE | | EXTERNAL | | | | RANGE:0.9 - 1.2 | | LAB | | | | NON-ANTICOAGULATED2.0 | | | | | | - 3.0 ALL OTHER | | | | | | THERAPEUTIC | | | | | | INDICATIONS2.5 - 3.5 | | | | | | MECHANICAL HEART VALVES, | | | | | | RECURRENT OR SYSTEMIC | | | | | | EMBOLISMTesting | | | | | | performed at [facility] | | | | | | [facility];[place] | | | | | | [address] | | | | + + + [...] + +---------+ + + Basic Metabolic Panel (01/13/2015 10:10 AM PDT) + + + + + + | Component | Value | Ref Range | Performed | Pathologist | | | | | At | Signature | + + + + + + | Na | 135Comment: Testing | 135 - 143 | EXTERNAL | | | | performed at [facility];888 | mmol/L | LAB | | | | [address];[place] | | | | | | [address] | | | | + + + + + + | K | 4.8Comment: SLT | 3.5 - 4.9 | EXTERNAL | | | | HEMOLYSISTesting | mmol/L | LAB | | | | performed at [facility];[address] | | | | | | [address];[place] | | | | | | [address] | | | | + + + + + + | Cl | 94 (L)Comment: Testing | 99 - 109 mmol/L | EXTERNAL | | | | performed at [facility];[address] | | LAB | | | | [address];[place] | | | | | | [address] | | | | + + + + + + | CO2 | 32Comment: Testing | 23 - 32 mmol/L | EXTERNAL | | | | performed at [facility];[address] | | LAB | | | | [address];[place] | | | | | | [address] | | | | + + + + + + | Anion Gap | 14Comment: Testing | 5 - 20 mmol/L | EXTERNAL | | | | performed at [facility];[address] | | LAB | | | | [address];[place] | | | | | | [address] | | | | + + + + + + | Glucose, | 97Comment: Testing | 65 - 99 mg/dL | EXTERNAL | | | Fasting | performed at [facility];[address] | | LAB | | | | [address];[place] | | | | | | [address] | | | | + + + + + + | BUN | 42 (H)Comment: Testing | 8 - 25 mg/dL | EXTERNAL | | | | performed at [facility];[address] | | LAB | | | | [address];[place] | | | | | | [address] | | | | + + + + + + | Creatinine | 12 (H)Comment: Testing | 0.70 - 1.30 | EXTERNAL | | | | performed at [facility];888 | mg/dL | LAB | | | | [address];[place] | | | | | | [address] | | | | + + + + + + | BUN/Creatin | 4Comment: Testing | | EXTERNAL | | | ine Ratio | performed at [facility];[address] | | LAB | | | | [address];[place] | | | | | | [address] | | | | + + + + + + | Calcium | 9.4Comment: Testing | 8.5 - 10.5 | EXTERNAL | | | | performed at [facility];888 | mg/dL | LAB | | | | [address];[place] | | | | | | [address] | | | | + + + + + + | Estimated | 5 (L)Comment: GFR <60: | mL/min/1.73m2 | EXTERNAL [...] | | | | | | at [facility];[address] [place] [address] | | | | | | [facility];[place] [address] | | | | + + + [...] disease | + + documented in this encounter"
--- OUTSIDE RECORDS SUMMARY | ~2019-05-09 | XMS | Encounter Summary ---
Demographics + + + | Address | [address] | | | [place] [address] | + + + | Home Phone | | + + + | Preferred Language | Unknown | + + + | Marital Status | Single | + + + | Amish Affiliation | Unknown | + + + | Race | Black or | + + + | Ethnic Group | Not or | + + + Author + + + | Author | [facility] | + + + | Organization | [facility] | + + + | Address | Unknown | + + + | Phone | Unavailable | + + + Support + + +---------+ + | Name | Relationship | Address | Phone | + + +---------+ + | Olesya Lamb | ECON | Unknown | | + + +---------+ + Care Team Providers + +------+ + | Care Foreign Policy Officer Name | Role | Phone | + +------+ + | Oziel Michael MD | PCP | | + +------+ + Encounter Details +--------+ + + + + | Date | Type | Department | Care Team | Description | +--------+ + + + + | 02/20/ | Ancillary | LAB IMMUNOGENETIC | | | | 2013 | Orders | [facility] | | | | | | [address] | | | | | | [place], | | | | | | [place] [address] | | | +--------+ + + + [...] FLOW HLA AB PRA | Routin | 02/20/2014 | | | | SCREEN I/II | e | 3:58 PM | | | | | | PDT | | | + +--------+ + + + documented in this encounter Results LIT FLOW HLA AB PRA SCREEN I/II (02/20/2014 3:58 PM PDT) + + | Specimen | + + | Blood - Blood | + + + + + + + | Performing | Address | City/State/Zipcode | Phone Number | | Organization | | | | + + + + + | [facility] - | [address] | [place] [address] | | | IMMUNOGENETICS/TRANS | [address] | | | | [facility] | | | | + + + + + documented in this encounter Visit Diagnoses Not on filedocumented in this encounter"
--- OUTSIDE RECORDS SUMMARY | ~2019-05-09 | XMS | Encounter Summary ---
Demographics + + + | Address | [address] | | | [place] [address] | + + + | Home Phone | | + + + | Preferred Language | Unknown | + + + | Marital Status | Single | + + + | Gnosticism Affiliation | Unknown | + + + | Race | Black or | + + + | Ethnic Group | Not or | + + + Author + + + | Author | [facility] | + + + | Organization | [facility] | + + + | Address | Unknown | + + + | Phone | Unavailable | + + + Support + + +---------+ + | Name | Relationship | Address | Phone | + + +---------+ + | Olesya Lamb | ECON | Unknown | | + + +---------+ + Care Team Providers + +------+ + | Care Party Host/Hostess Name | Role | Phone | + +------+ + | Oziel Michael MD | PCP | | + +------+ + Encounter Details +--------+ + + + + | Date | Type | Department | Care Team | Description | +--------+ + + + + | 05/21/ | Lab | LAB IMMUNOGENETIC | | | | 2015 | Requisition | [facility] | | | | | | [address] | | | | | | [place], | | | | | | [place] [address] | | | +--------+ + + + [...] FLOW HLA AB PRA | Routin | 05/21/2015 | | | | SCREEN I/II | e | 3:08 PM | | | | | | PST | | | + +--------+ + + + documented in this encounter Results LIT FLOW HLA AB PRA SCREEN I/II (05/21/2015 3:08 PM PST) + + | Specimen | + + | Blood - Blood | | (substance) | + + + + + + + | Performing | Address | City/State/Zipcode | Phone Number | | Organization | | | | + + + + + | [facility] - | [address] | [place] [address] | | | IMMUNOGENETICS/TRANS | [address] | | | | [facility] | | | | + + + + + documented in this encounter Visit Diagnoses Not on filedocumented in this encounter"
--- OUTSIDE RECORDS SUMMARY | ~2019-05-09 | XMS | Encounter Summary ---
Demographics + + + | Address | [address] | | | [place] [address] | + + + | Home Phone | | + + + | Preferred Language | Unknown | + + + | Marital Status | Single | + + + | Methodist Affiliation | Unknown | + + + | Race | Black or | + + + | Ethnic Group | Not or | + + + Author + + + | Author | [facility] | + + + | Organization | [facility] | + + + | Address | Unknown | + + + | Phone | Unavailable | + + + Support + + +---------+ + | Name | Relationship | Address | Phone | + + +---------+ + | Olesya Lamb | ECON | Unknown | | + + +---------+ + Care Team Providers + +------+ + | Care Automatic Furnace Operator Name | Role | Phone | + +------+ + | Oziel Michael MD | PCP | | + +------+ + Encounter Details +--------+ + + + + | Date | Type | Department | Care Team | Description | +--------+ + + + + | 10/19/ | Ancillary | LAB IMMUNOGENETIC | | | | 2012 | Orders | [facility] | | | | | | [address] | | | | | | [place], | | | | | | [place] [address] | | | +--------+ + + + [...] FLOW HLA AB PRA | Routin | 10/19/2012 | | | | SCREEN I/II | e | 2:40 PM | | | | | | PDT | | | + +--------+ + + + documented in this encounter Results LIT FLOW HLA AB PRA SCREEN I/II (10/19/2012 2:40 PM PDT) + + | Specimen | + + | Blood - Blood | + + + + + + + | Performing | Address | City/State/Zipcode | Phone Number | | Organization | | | | + + + + + | [facility] - | [address] | [place] [address] | | | IMMUNOGENETICS/TRANS | [address] | | | | [facility] | | | | + + + + + documented in this encounter Visit Diagnoses Not on filedocumented in this encounter"
--- OUTSIDE RECORDS SUMMARY | ~2019-05-09 | XMS | Encounter Summary ---
Demographics + + + | Address | [address] | | | [place] [address] | + + + | Home Phone | | + + + | Preferred Language | Unknown | + + + | Marital Status | Unknown | + + + | Anabaptist Affiliation | Unknown | + + + | Race | Unknown | + + + | Ethnic Group | Unknown | + + + Author + + + | Author | [facility] | | | and [place] | + + + | Organization | [facility] | | | and [...] Team Providers + +------+ + | Care Manager English Name | Role | Phone | + +------+ + PCP | Unavailable | + +------+ + Encounter Details +--------+ + + + + | Date | Type | Department | Care Team | Description | +--------+ + + + + | 10/13/ | Orders Only | [facility] | Conversion | | | 2010 | | [facility] | Transaction, | | | | | LABORATORY [address] | Provider Unknown | | | | | [address] | | | | | | [address] | (Fax) | | | | | [phone] | | | +--------+ + + + [...] 2019 | Visit | | [address] [facility] | | | | | | [address] [place], [place] | | | | | | [address] | | | | | | | | +--------+---------+ + + + documented as of this encounter Procedures + +--------+ + + + | Procedure Name | Priori | Date/Time | Associated Diagnosis | Comments | | | ty | | | | + +--------+ + + + | SURGICAL PATHOLOGY | Routin | 10/13/2010 | | Results for this | | EXAM | e | 12:00 AM | | procedure are in the | | | | PDT | | results section. | + +--------+ + + + | SURGICAL PATHOLOGY | Routin | 10/13/2010 | | Results for this | | EXAM | e | 12:00 AM | | procedure are in the | | | | PDT | | results section. | + +--------+ + + + documented in this encounter Results Surgical Pathology Exam (10/13/2010 12:00 AM PDT) + + | Specimen | + + | | + + + + + | Narrative | Performed At | + + + | SURGICAL PATHOLOGY REPORT | [facility] | | Date Taken: 10/13/2010 Date Received: 10/14/2010 | | | Completed: 10/14/2010 Physician: Chiki Medley MD Copy to: | | | Jewel Yanez MD DIAGNOSIS: Kidney needle biopsy: | | | Renal medulla and minute amount of cortex showing global | | | glomerulosclerosis and severe tubulointerstitial scarring with mild | | | lymphocytic inflammation. See comment. 0 COMMENT: | | | Unfortunately, the light microscopic tissue sample consists | | | predominately of renal medulla with only a minute amount of cortex. | | | No glomeruli are seen, but severe interstitial fibrosis and tubular | | | atrophy with "thyroidization" are noted in association with a | | | diffuse, mild lymphocytic infiltrate. The tissue sample for | | | immunofluorescence microscopy does contain a small amount of scarred | | | cortex with two obsolescent glomeruli. Immunofluorescence is | | | negative, but a false negative result cannot be excluded due to the | | | lack of non-scarred glomeruli. Whether the apparent advanced | | | tubulointerstitial scarring is due to glomerular disease or chronic | | | interstitial nephritis cannot be determined with certainty. The | | | tissue submitted for electron microscopy is pending, and an addendum | | | report will be issued. Clinical correlation is required with | | | consideration of re-biopsy, depending upon the setting. [facility] | | | Cricket Resendiz M.D. Electronic signature GROSS DESCRIPTION: | | | Three specimens are received, each identified as "kidney core | | | biopsy". The specimen is received in formalin and consists of | | | two cores of tissue measuring 1.7 x 0.8 cm in length. Submitted | | | for light microscopy as "A1". The specimen is received in | | | glutaraldehyde and consists of a 1.0 cm in length core of tissue. | | | Submitted for electron microscopy. The specimen is received in | | | Luis Alfredo solution and consists of a 0.5 cm in length core of tissue. | | | Submitted for immunofluorescence studies. (MS) MICROSCOPIC | | | DESCRIPTION: Multiple level sections entirely through the tissue | | | fragments reveal cores of renal medulla with a small amount of | | | cortex. No glomeruli are encountered. The cortical tissue shows | | | diffuse, severe fibrosis and tubular atrophy, involving about | | | three-fourths of the sampled tissue. The atrophic tubules | | | occasionally contain prominent hyalinized casts ("thyroidization"), | | | which do not elicit a toxic epithelial giant cell reaction. No | | | viral inclusions are suggested. The scarring is accompanied by a | | | diffuse, mild chronic inflammatory cell infiltrate, consisting | | | predominately of small lymphocytes with occasional plasma cells and a | | | few eosinophils. Only mildly active tubulitis is noted. No | | | granulomas are seen. No arterioles or small segmental arteries are | | | identified. Special stains (trichrome, PAS, PAMS) were required | | | in the evaluation of this biopsy. IMMUNOFLUORESCENCE | | | MICROSCOPY: The Luis Alfredo fixed tissue is frozen sectioned and stained | | | for IgG, IgM, IgA, C3, C1q, kappa, lambda, fibrinogen, and albumin | | | by the direct immunofluorescence technique. Survey examination | | | reveals predominately renal medulla with a small amount of cortex. | | | Two, globally sclerosed glomeruli are present. No significant | | | glomerular immunofluorescence is demonstrated for the immunoglobulins | | | or complement components. Scattered tubular casts stain for IgA, | | | and occasional tubular basement membranes and vessel boothe are | | | positive for C3. 1: 18608, 46989(9), 77557, 38290, | | | 78672, 82255 PROCEDURES/ADDENDA | | | ELECTRON MICROSCOPY DIAGNOSIS: Needle renal biopsy: | | | Advanced global glomerulosclerosis (90%) and segmental, mild | | | mesangial sclerosis and capillary basement membrane changes, most | | | consistent with hypertensive nephrosclerosis. 0 DISCUSSION: | | | The glutaraldehyde fixed tissue is post fixed in osmium | | | tetroxide, dehydrated, and embedded in Epon. One micron thick | | | sections are stained with Balderrama's stain for light microscopic | | | survey, and ultrathin sections are stained with uranyl acetate-lead | | | citrate for electron microscopy. Survey examination of multiple | | | one micron thick sections from the four tissue blocks reveals renal | | | medulla and cortex with a total of ten glomeruli, nine of which are | | | completely sclerosed. The single, non-obsolescent glomerulus shows | | | overall preservation of the normal capillary loop architecture with | | | no significant mesangial sclerosis or cell proliferation. However, | | | irregular, mild-moderate capillary basement membrane thickening, | | | wrinkling, and partial collapse are seen. The capillary lumens | | | remain open and predominately empty. No glomerular exudative | | | inflammation, fibrinoid necrosis, or fibroepithelial crescents are | | | encountered. The globally sclerosed glomeruli show complete | | | collapse and consolidation of the capillary loops with bland | | | hyalinosis of Arboleda's space. No excess cellularity is encountered | | | to indicate a prior proliferative glomerulonephritis. The | | | tubulointerstitial compartment shows diffuse, severe fibrosis and | | | tubular atrophy, involving over three-fourths of the sampled cortex. | | | A focal, mild-moderate chronic inflammatory cell infiltrate | | | accompanies the scaring, consisting predominantly of small | | | lymphocytes with occasional plasma cells and a few eosinophils. No | | | active tubulitis is noted. Severe arteriolosclerosis is evident. | | | The single, non-obsolescent glomerulus is selected for electron | | | microscopy (block 1). Ultrastructurally, the overall preservation | | | of the normal glomerular capillary loop architecture is confirmed. | | | Only segmental, mild mesangial sclerosis is seen with no associated | | | cell proliferation. The capillary basement membranes are of normal | | | substructural organization, but show irregular, mild to moderate | | | thickening with varying degrees of wrinkling and partial collapse. | | | No electron dense, immune-type deposits are identified within the | | | mesangium, subendothelium, or subepithelium. No deposits of amyloid | | | or other extraneous material are seen. The capillary lumens are | | | occasionally partially filed by artifactually swollen endothelium. | | | No endothelial tubuloreticular inclusions are encountered. The | | | epithelial cells are mildly hyperplastic with focal microvillous | | | transformation and mild partial foot process obliteration, involving | | | about 15-20% of the foot processes. [facility] | | | Sonny Resendiz. [address] [address] | | | or Testing performed at: [facility] | | | [facility] Doug Cochran M.D., | | | Director [address] [place] [address] [address] [place] [address] Phone: | | | | | + + + + + + + + | Performing | Address | City/State/Zipcode | Phone Number | | Organization | | | | + + + + + | [facility] | [address] | [place] [address] | | | [facility] | | | | | LABORATORY | | | | + + + + + | [facility] | | | | + + + + + Surgical Pathology Exam (10/13/2010 12:00 AM PDT) + + | Specimen | + + | | + + + + + | Narrative | Performed At | + + + | SURGICAL PATHOLOGY REPORT | [facility] | | Date Taken: 10/13/2010 Date Received: 10/14/2010 | | | Completed: 10/14/2010 Physician: Chiki Medley MD Copy to: | | | Jewel Yanez MD DIAGNOSIS: Kidney needle biopsy: | | | Renal medulla and minute amount of cortex showing global | | | glomerulosclerosis and severe tubulointerstitial scarring with mild | | | lymphocytic inflammation. See comment. 0 COMMENT: | | | Unfortunately, the light microscopic tissue sample consists | | | predominately of renal medulla with only a minute amount of cortex. | | | No glomeruli are seen, but severe interstitial fibrosis and tubular | | | atrophy with "thyroidization" are noted in association with a | | | diffuse, mild lymphocytic infiltrate. The tissue sample for | | | immunofluorescence microscopy does contain a small amount of scarred | | | cortex with two obsolescent glomeruli. Immunofluorescence is | | | negative, but a false negative result cannot be excluded due to the | | | lack of non-scarred glomeruli. Whether the apparent advanced | | | tubulointerstitial scarring is due to glomerular disease or chronic | | | interstitial nephritis cannot be determined with certainty. The | | | tissue submitted for electron microscopy is pending, and an addendum | | | report will be issued. Clinical correlation is required with | | | consideration of re-biopsy, depending upon the setting. [facility] | | | Cricket Resendiz M.D. Electronic signature GROSS DESCRIPTION: | | | Three specimens are received, each identified as "kidney core | | | biopsy". The specimen is received in formalin and consists of | | | two cores of tissue measuring 1.7 x 0.8 cm in length. Submitted | | | for light microscopy as "A1". The specimen is received in | | | glutaraldehyde and consists of a 1.0 cm in length core of tissue. | | | Submitted for electron microscopy. The specimen is received in | | | Luis Alfredo solution and consists of a 0.5 cm in length core of tissue. | | | Submitted for immunofluorescence studies. (MS) MICROSCOPIC | | | DESCRIPTION: Multiple level sections entirely through the tissue | | | fragments reveal cores of renal medulla with a small amount of | | | cortex. No glomeruli are encountered. The cortical tissue shows | | | diffuse, severe fibrosis and tubular atrophy, involving about | | | three-fourths of the sampled tissue. The atrophic tubules | | | occasionally contain prominent hyalinized casts ("thyroidization"), | | | which do not elicit a toxic epithelial giant cell reaction. No | | | viral inclusions are suggested. The scarring is accompanied by a | | | diffuse, mild chronic inflammatory cell infiltrate, consisting | | | predominately of small lymphocytes with occasional plasma cells and a | | | few eosinophils. Only mildly active tubulitis is noted. No | | | granulomas are seen. No arterioles or small segmental arteries are | | | identified. Special stains (trichrome, PAS, PAMS) were required | | | in the evaluation of this biopsy. IMMUNOFLUORESCENCE | | | MICROSCOPY: The Luis Alfredo fixed tissue is frozen sectioned and stained | | | for IgG, IgM, IgA, C3, C1q, kappa, lambda, fibrinogen, and albumin | | | by the direct immunofluorescence technique. Survey examination | | | reveals predominately renal medulla with a small amount of cortex. | | | Two, globally sclerosed glomeruli are present. No significant | | | glomerular immunofluorescence is demonstrated for the immunoglobulins | | | or complement components. Scattered tubular casts stain for IgA, | | | and occasional tubular basement membranes and vessel boothe are | | | positive for C3. 1: 35743, 42733(9), 72188, 70175, | | | 76496, 20901 PROCEDURES/ADDENDA | | | ELECTRON MICROSCOPY DIAGNOSIS: Needle renal biopsy: | | | Advanced global glomerulosclerosis (90%) and segmental, mild | | | mesangial sclerosis and capillary basement membrane changes, most | | | consistent with hypertensive nephrosclerosis. 0 DISCUSSION: | | | The glutaraldehyde fixed tissue is post fixed in osmium | | | tetroxide, dehydrated, and embedded in Epon. One micron thick | | | sections are stained with Balderrama's stain for light microscopic | | | survey, and ultrathin sections are stained with uranyl acetate-lead | | | citrate for electron microscopy. Survey examination of multiple | | | one micron thick sections from the four tissue blocks reveals renal | | | medulla and cortex with a total of ten glomeruli, nine of which are | | | completely sclerosed. The single, non-obsolescent glomerulus shows | | | overall preservation of the normal capillary loop architecture with | | | no significant mesangial sclerosis or cell proliferation. However, | | | irregular, mild-moderate capillary basement membrane thickening, | | | wrinkling, and partial collapse are seen. The capillary lumens | | | remain open and predominately empty. No glomerular exudative | | | inflammation, fibrinoid necrosis, or fibroepithelial crescents are | | | encountered. The globally sclerosed glomeruli show complete | | | collapse and consolidation of the capillary loops with bland | | | hyalinosis of Arboleda's space. No excess cellularity is encountered | | | to indicate a prior proliferative glomerulonephritis. The | | | tubulointerstitial compartment shows diffuse, severe fibrosis and | | | tubular atrophy, involving over three-fourths of the sampled cortex. | | | A focal, mild-moderate chronic inflammatory cell infiltrate | | | accompanies the scaring, consisting predominantly of small | | | lymphocytes with occasional plasma cells and a few eosinophils. No | | | active tubulitis is noted. Severe arteriolosclerosis is evident. | | | The single, non-obsolescent glomerulus is selected for electron | | | microscopy (block 1). Ultrastructurally, the overall preservation | | | of the normal glomerular capillary loop architecture is confirmed. | | | Only segmental, mild mesangial sclerosis is seen with no associated | | | cell proliferation. The capillary basement membranes are of normal | | | substructural organization, but show irregular, mild to moderate | | | thickening with varying degrees of wrinkling and partial collapse. | | | No electron dense, immune-type deposits are identified within the | | | mesangium, subendothelium, or subepithelium. No deposits of amyloid | | | or other extraneous material are seen. The capillary lumens are | | | occasionally partially filed by artifactually swollen endothelium. | | | No endothelial tubuloreticular inclusions are encountered. The | | | epithelial cells are mildly hyperplastic with focal microvillous | | | transformation and mild partial foot process obliteration, involving | | | about 15-20% of the foot processes. [facility] | | | Sonny Resendiz. [facility] [address] [place] [address] | | | or Testing performed at: [facility] | | | [facility] Doug Cochran M.D., | | | Director [address] [place] [address] [address] [place] [address] Phone: | | | | | + + + + + + + + | Performing | Address | City/State/Zipcode | Phone Number | | Organization | | | | + + + + + | [facility] | [address] | [place] [address] | | | [facility] | | | | | LABORATORY | | | | + + + + + | [facility] | | | | + + + + + documented in this encounter Visit Diagnoses Not on filedocumented in this encounter
--- OUTSIDE RECORDS SUMMARY | ~2019-05-09 | XMS | Encounter Summary ---
Demographics + + + | Address | [address] | | | [place] [address] | + + + | Home Phone | | + + + | Preferred Language | Unknown | + + + | Marital Status | Unknown | + + + | Muslim Affiliation | Unknown | + + + | Race | Unknown | + + + | Ethnic Group | Unknown | + + + Author + + + | Author | [facility] | | | and [place] | + + + | Organization | [facility] | | [...] Team Providers + +------+ + | Care Core Maker Name | Role | Phone | + +------+ + PCP | Unavailable | + +------+ + Encounter Details +--------+ + + + + | Date | Type | Department | Care Team | Description | +--------+ + + + + | 08/07/ | Orders Only | [facility] | Alexx Gutierrez MD | | | 2018 | | NEPHROLOGY [place] | [address] [place] | | | | | [address] [place] | [address] [place], [place] | | | | | [address] [place], [place] | [address] | | | | | [address] | | | | | | [phone] | | | +--------+ + + + [...] | | | | | | [address] [facility] | | | | | | [address] | | | | | | | [...] | | | LAB | | | [facility] | | | | | + + [...]
--- OUTSIDE RECORDS SUMMARY | ~2019-05-09 | XMS | Encounter Summary ---
Demographics + + + | Address | [address] | | | [place] [address] | + + + | Home Phone | | + + + | Preferred Language | Unknown | + + + | Marital Status | Unknown | + + + | Rastafarian Affiliation | Unknown | + + + | Race | Unknown | + + + | Ethnic Group | Unknown | + + + Author + + + | Author | [facility] | | | and [place] | + + + | Organization | [facility] | | [...] Team Providers + +------+ + | Care Homoeopath Name | Role | Phone | + +------+ + | Oziel Michael MD | PCP | | + +------+ + Encounter Details +--------+ + + + + | Date | Type | Department | Care Team | Description | +--------+ + + + + | 06/13/ | Orders Only | [facility] | Conversion | | | 2018 | | NEPRHOLOGY [place] | Transaction, | | | | | [address] | Provider Unknown | | | | | [address] [place], [place] | [phone] | | | | | [address] | | | | | | [phone] | | | +--------+ + + + [...] 2019 | Visit | | [address] [facility] | | | | | | [address] [place] | | | | | | [address] | | | | | | | | +--------+---------+ + + + documented as of this encounter Procedures + +--------+ + + + | Procedure Name | Priori | Date/Time | Associated Diagnosis | Comments | | | ty | | | | + +--------+ + + + | CULTURE, URINE | Routin | 06/13/2018 | | Results for this | | | e | 7:10 AM | | procedure are in the | | | | PST | | results section. | + +--------+ + + + documented in this encounter Results Culture, Urine (06/13/2018 7:10 AM PST) + + | Specimen | [...]
--- OUTSIDE RECORDS SUMMARY | ~2019-05-09 | XMS | Encounter Summary ---
Demographics + + + | Address | [address] | | | [place] [address] | + + + | Home Phone | | + + + | Preferred Language | Unknown | + + + | Marital Status | Unknown | + + + | Jainism Affiliation | Unknown | + + + | Race | Unknown | + + + | Ethnic Group | Unknown | + + + Author + + + | Author | [facility] | | | and [place] | + + + | Organization | [facility] | | | [...] Team Providers + +------+ + | Care Geomatics Professor Name | Role | Phone | + +------+ + PCP | Unavailable | + +------+ + Encounter Details +--------+ + + + + | Date | Type | Department | Care Team | Description | +--------+ + + + + | 09/04/ | Orders Only | [facility] | Alexx Gutierrez MD | | | 2018 | | NEPHROLOGY [place] | [address] [place] | | | | | [address] [place] | [address] [place], [place] | | | | | [address] [place], [place] | [address] | | | | | [address] | | | | | | [phone] | | | +--------+ + + + [...] 2019 | Visit | | [address] [facility] | | | | | | [address] [facility] | | | | | | [address] | | | | | | | | +--------+---------+ + + + documented as of this encounter Procedures + +--------+ + + + | Procedure Name | Priori | Date/Time | Associated Diagnosis | Comments | | | ty | | | | + +--------+ + + + | ALT | Routin | 09/04/2018 | | Results for this | | | e | 7:50 AM | | procedure are in the | | | | PDT | | results section. | + +--------+ + + + | AST | Routin | 09/04/2018 | | Results for this | | | e | 7:50 AM | | procedure are in the | | | | PDT | | results section. | + +--------+ + + + | PARATHYROID HORMONE, | Routin | 09/04/2018 | | Results for this | | INTACT | e | 7:50 AM | | procedure are in the | | | | PDT | | results section. | + +--------+ + + + documented in this encounter Results ALT (09/04/2018 7:50 AM PDT) + +-------+ + + + | Component | Value | Ref Range | Performed | Pathologist | | | | | At | Signature | + +-------+ + + + | ALT | 8 | 7 - 52 U/L | EXTERNAL [...] | | + +---------+ + + AST (09/04/2018 7:50 AM PDT) + +-------+ + + + [...] + +---------+ + + Parathyroid Hormone, Intact (09/04/2018 7:50 AM PDT) + + + + + + | Component | Value | Ref Range | Performed | Pathologist | | | | | At | Signature | + + + + + + | PTH INTACT | 131.0 (A) | 15 - 65 pg/mL | [...]
--- OUTSIDE RECORDS SUMMARY | ~2019-05-09 | XMS | Encounter Summary ---
Demographics + + + | Address | [address] | | | [place] [address] | + + + | Home Phone | | + + + | Preferred Language | Unknown | + + + | Marital Status | Single | + + + | Cheondoism Affiliation | Unknown | + + + | Race | Black or | + + + | Ethnic Group | Not or | + + + Author + + + | Author | [facility] | + + + | Organization | [...] Team Providers + +------+ + | Care Producer Arborist Manager Name | Role | Phone | + +------+ + | Oziel Michael MD | PCP | | + +------+ + Encounter Details +--------+ + + + + | Date | Type | Department | Care Team | Description | +--------+ + + + + | 04/23/ | Ancillary | LAB IMMUNOGENETIC | | | | 2012 | Orders | [facility] | | | | | | [address] | | | | | | [place] [place] [place], | | | | | | [place] [address] | | | +--------+ + + + [...] FLOW HLA AB PRA | Routin | 04/23/2013 | | | | SCREEN I/II | e | 4:17 PM | | | | | | PST | | | + +--------+ + + + documented in this encounter Results LIT FLOW HLA AB PRA SCREEN I/II (04/23/2013 4:17 PM PST) + + | Specimen | + + | Blood - Blood | + + + + + + + | Performing | Address | City/State/Zipcode | Phone Number | | Organization | | | | + + + + + | [facility] - | [address] | [place] [address] | | | IMMUNOGENETICS/TRANS | [address] | | | | [facility] | | | | + + + + + documented in this encounter Visit Diagnoses Not on filedocumented in this encounter"
--- OUTSIDE RECORDS SUMMARY | ~2019-05-09 | XMS | Encounter Summary ---
Demographics + + + | Address | [address] | | | [place] [address] | + + + | Home Phone | | + + + | Preferred Language | Unknown | + + + | Marital Status | Unknown | + + + | Yazidi Affiliation | Unknown | + + + [...] Team Providers + +------+ + | Care Cap Cutter Name | Role | Phone | + +------+ + PCP | Unavailable | + +------+ + Encounter Details +--------+ + + + + | Date | Type | Department | Care Team | Description | +--------+ + + + + | 05/24/ | Hospital | [facility] | Conversion | | | 2011 | Encounter | CENTER CV INTRA OP | Transaction, | | | | | [address] | Provider Unknown | | | | | [place], [place] | [phone] | | | | | [address] | | | | | | [phone] | Alexx Gutierrez MD | | | | | | [address] [place] | | | | | | [address] [place], [place] | | | | | | [address] | | | | | | | [...] 1549 Date of Service: 05/24/111547 Status: Signed Para Machine Operator: Daniele Pemberton NP (Nurse Practitioner) [facility] Service: Interventional Radiology Post-Procedure Discharge Note [...] Follow up: Alexx Gutierrez MD [address] [facility], [facility] [address] [place] [address] Discharge Medications: Current Discharge Medication List CONTINUE these medications which have NOT CHANGED Details amlodipine (NORVASC) 10 MG tablet Take 10 mg by mouth daily. B Vmqkgtl-L-Ookbb Acid (STERLING-BRITT PO) Take by mouth daily. [...] 2019 | Visit | | [address] [facility] | | | | | | [address] [place] | | | | | | [address] | | | | | | | [...] conscious sedation, | | | and independent residential supervision was performed throughout | | | [...] centrally | | | with the standard 4-[place] micropuncture set. Contrast was then | | [...] then | | | secured with a 4-[place]ican sheath. The area of stenosis was traversed [...] of adequate conscioussedation, | | and independent residential supervision was performedthroughout the procedure. | | PROCEDURE: An informed written consent had been obtained from the patient prior to | | theprocedure. Patient was placed supine on the interventional table and his left | | upperextremity was prepped and draped in the usual sterile fashion. Aftergiving local | | anesthesia, the fistula was accessed directed centrally withthe standard 4-[place]ican | | micropuncture set. Contrast was then [...] was then | | secured with a 4-[place]ican sheath. The area of stenosis wastraversed with [...] conscious sedation, | | | and independent residential supervision was performed throughout | | | [...] centrally | | | with the standard 4-[place] micropuncture set. Contrast was then | | [...] then | | | secured with a 4-[place]ican sheath. The area of stenosis was traversed [...] of adequate conscioussedation, | | and independent residential supervision was performedthroughout the procedure. | | PROCEDURE: An informed written consent had been obtained from the patient prior to | | theprocedure. Patient was placed supine on the interventional table and his left | | upperextremity was prepped and draped in the usual sterile fashion. Aftergiving local | | anesthesia, the fistula was accessed directed centrally withthe standard 4-[place]ican | | micropuncture set. Contrast was then [...] was then | | secured with a 4-[place]ican sheath. The area of stenosis wastraversed with [...]
--- OUTSIDE RECORDS SUMMARY | ~2019-05-09 | XMS | Encounter Summary ---
Demographics + + + | Address | [address] | | | [place] [address] | + + + | Home Phone | | + + + | Preferred Language | Unknown | + + + | Marital Status | Unknown | + + + | Gnosticism Affiliation | Unknown | + + + | Race | Unknown | + + + | Ethnic Group | Unknown | + + + Author + + + | Author | [facility] | | | and [place] | + + + | Organization | [facility] | | | [...] Team Providers + +------+ + | Care Stock And Station Agent Name | Role | Phone | + [...] Provider Unknown | | | | | [place] | [phone] | | | | | [address] | | | | | | [phone] | | | +--------+ + + + [...] 2020 | Visit | | [address] [facility] | | | | | | [address] [place] | | | | | | [address] | | | | | | | | +--------+---------+ + + + documented as of this encounter Visit Diagnoses Not on filedocumented in this encounter"
--- OUTSIDE RECORDS SUMMARY | ~2019-05-09 | XMS | Encounter Summary ---
Demographics + + + | Address | [address] | | | [place] [address] | + + + | Home Phone [...] Team Providers + +------+ + | Care Pig Caster Name | Role | Phone | + +------+ + | Oziel Michael MD | PCP | | + +------+ + Encounter Details +--------+ + + + + | Date | Type | Department | Care Team | Description | +--------+ + + + + | 05/22/ | Orders Only | [facility] | Alexx Gutierrez MD | | | 2017 | | NEPRHOLOGY [place] | [address] | | | | | [address] | [address] [place], [place] | | | | | [address] [place], [place] | [address] | | | | | [address] | | | | | | [phone] | | | +--------+ + + + [...] 2020 | Visit | | [address] [facility] | | | | | | [address] [place] | | | | | | [address] | | | | | | | | +--------+---------+ + + + documented as of this encounter Visit Diagnoses Not on filedocumented in this encounter"
--- OUTSIDE RECORDS SUMMARY | ~2019-05-09 | XMS | Encounter Summary ---
Demographics + + + | Address | [address] | | | [place] [address] | + + + | Home Phone | | + + + | Preferred Language | Unknown | + + + | Marital Status | Unknown | + + + | Episcopalian Affiliation | Unknown | + + + | Race | Unknown | + + + | Ethnic Group | Unknown | + + + Author + + + | Author | [facility] | | | and [place] | + + + | Organization | [facility] | | | and [...] Providers + +------+ + | Care Manager Air Name | Role | Phone | + +------+ + | Oziel Michael MD | PCP | | + +------+ + Encounter Details +--------+ + + + + | Date | Type | Department | Care Team | Description | +--------+ + + + + | 07/25/ | Orders Only | [facility] | Conversion | | | 2016 | | NEPHROLOGY [place] | Transaction, | | | | | [address] | Provider Unknown | | | | | [address] [place], [place] | | | | | | [address] | (Fax) | | | | | [phone] | | | +--------+ + + + [...] 2019 | Visit | | [address] [facility] | | | | | | [address] [place], [place] | | | | | | [address] | | | | | | | | +--------+---------+ + + + documented as of this encounter Procedures + +--------+ + + + | Procedure Name | Priori | Date/Time | Associated Diagnosis | Comments | | | ty | | | | + +--------+ + + + | EXTERNAL LAB: | Routin | 07/25/2016 | | Results for this | | TACROLIMUS LEVEL, | e | 10:06 AM | | procedure are in the | | LC-MS/MS | | PDT | | results section. | + +--------+ + + + | EXTERNAL LAB: CBC | Routin | 07/25/2016 | | Results for this | | | e | 10:06 AM | | procedure are in the | | | | PDT | | results section. | + +--------+ + + + | ALT | Routin | 07/25/2016 | | Results for this | | | e | 10:06 AM | | procedure are in the | | | | PDT | | results section. | + +--------+ + + + | URINALYSIS, | Routin | 07/25/2016 | | Results for this | | MICROSCOPIC ONLY | e | 10:06 AM | | procedure are in the | | | | PDT | | results section. | + +--------+ + + + | PROTEIN/CREATININE | Routin | 07/25/2016 | | Results for this | | RATIO, URINE | e | 10:06 AM | | procedure are in the | | | | PDT | | results section. | + +--------+ + + + | PSA, TOTAL AND FREE | Routin | 07/25/2016 | | Results for this | | | e | 10:06 AM | | procedure are in the | | | | PDT | | results section. | + +--------+ + + + | AST | Routin | 07/25/2016 | | Results for this | | | e | 10:06 AM | | procedure are in the | | | | PDT | | results section. | + +--------+ + + + | MAGNESIUM | Routin | 07/25/2016 | | Results for this | | | e | 10:06 AM | | procedure are in the | | | | PDT | | results section. | + +--------+ + + + | HEMOGLOBIN A1C | Routin | 07/25/2016 | | Results for this | | | e | 10:06 AM | | procedure are in the | | | | PDT | | results section. | + +--------+ + + + | CK TOTAL | Routin | 07/25/2016 | | Results for this | | | e | 10:06 AM | | procedure are in the | | | | PDT | | results section. | + +--------+ + + + | RENAL FUNCTION PANEL | Routin | 07/25/2016 | | Results for this | | | e | 10:06 AM | | procedure are in the | | | | PDT | | results section. | + +--------+ + + + documented in this encounter Results External Lab: Tacrolimus Level, LC-MS/MS (07/25/2016 10:06 AM PDT) + +-------+ + + + | Component | Value | Ref Range | Performed | Pathologist | | | | | At | Signature | + +-------+ + + + | Tacrolimus | 4.3 | | EXTERNAL | | | Level [...] + +---------+ + + Protein/Creatinine Ratio, Urine (07/25/2016 10:06 AM PDT) + +-------+ + + + | Component | Value | Ref Range | Performed | Pathologist | | | | | At | Signature | + +-------+ + + + | Protein/Cre | 141.1 | 0 - 150 | EXTERNAL | [...] | | | + +---------+ + + Urinalysis, Microscopic Only (07/25/2016 10:06 AM PDT) + + + + + [...] + + + + + + | Specific | 1.024 | 1.005 - 1.030 | EXTERNAL | | | [place] | | | LAB | | + [...] + + + + + + | Protein, | Comment: 25 | | EXTERNAL | | | Urine | | | LAB | | + + + + + + | pH, Urine | 6 | 5 - 9 | EXTERNAL | [...] + +---------+ + + External Lab: CBC (07/25/2016 10:06 AM PDT) + + + + + + | Component | Value | Ref Range | Performed | Pathologist | | | | | At | Signature | + + + + + + | WBC | 4.4 (A) | 4.5 - 11.0 10 | EXTERNAL | | | | | | LAB | | + + + + + + | RED CELL | 4.78 | 4.3 - 5.7 10 | EXTERNAL | | | COUNT | | | LAB | | + + + + + + | Hgb | 13.5 | 13.5 - 18.0 | EXTERNAL | | | | | g/dL | LAB | | + + + + + + | Hematocrit, | 42.2 | 41 - 50 % | EXTERNAL | | | POC | | | LAB | | + + + + + + | MCV | 88.4 | 81 - 99 fL | EXTERNAL [...] + + + + | Platelet | 180 | 140 - 440 K/ L | EXTERNAL | | | Count | | | LAB | | | Plasma | | | | | + + + + + + | RDW-CV | 15.9 (A) | 10.5 - 15.0 % | [...] + + + + | % | | % | EXTERNAL | | | Lymphocytes | | | LAB | | + + + + + + | % Monocytes | | % | EXTERNAL | | | | | | LAB | | + + + + + + | % | | [...] | | | + +---------+ + + PSA, Total and Free (07/25/2016 10:06 AM PDT) + +-------+ + + + | Component | Value | Ref Range | Performed | Pathologist | | | | | At | Signature | + +-------+ + + + | PSA, Free | 0.121 | 0.0 - 4.0 % | EXTERNAL | | | Pct | | | LAB | | + +-------+ + + + + + | Specimen | + + | Blood specimen | | (specimen) | + + + +---------+ + + | Performing | Address | City/State/Zipcode | Phone Number | | Organization | | | | + +---------+ + + | EXTERNAL LAB | | | | + +---------+ + + ALT (07/25/2016 10:06 AM PDT) + +-------+ + + + | Component | Value | Ref Range | Performed | Pathologist | | | | | At | Signature | + +-------+ + + + | ALT | 19 | 7 - 52 U/L | EXTERNAL [...] | | + +---------+ + + AST (07/25/2016 10:06 AM PDT) + +-------+ + + + | Component | Value | Ref Range | Performed | Pathologist | | | | | At | Signature | + +-------+ + + + | AST | 16 | 13 - 39 U/L | EXTERNAL [...] | | + +---------+ + + Magnesium (07/25/2016 10:06 AM PDT) + +---------+ + + + | Component | Value | Ref Range | Performed | Pathologist | | | | | At | Signature | + +---------+ + + + | Magnesium | 1.4 (A) | 1.7 - 2.5 mg/dL | [...] | | | + +---------+ + + Hemoglobin A1C (07/25/2016 10:06 AM PDT) + +-------+ + + + | Component | Value | Ref Range | Performed | Pathologist | | | | | At | Signature | + +-------+ + + + | Hemoglobin | 6.8 | % | EXTERNAL | | | A1c | | | LAB | | + [...] | + +---------+ + + CK Total (07/25/2016 10:06 AM PDT) + +---------+ + + + | Component | Value | Ref Range | Performed | Pathologist | | | | | At | Signature | + +---------+ + + + | CK, Total | 232 (A) | 24 - 195 U/L | [...] + +---------+ + + Renal Function Panel (07/25/2016 10:06 AM PDT) + + + + + + | Component | Value | Ref Range | Performed | Pathologist | | | | | At | Signature | + + + + + + | Glucose, | 112 (A) | 70 - 100 mg/dL | EXTERNAL | | | Fasting | | | LAB | | + + + + + + | BUN | 23 | 6 - 23 mg/dL | EXTERNAL | | | | | | LAB | | + + + + + + | Creatinine | 1.58 (A) | 0.70 - 1.33 | EXTERNAL [...] + + + + | Na | 142 | 132 - 143 | EXTERNAL | | | | | mmol/L | LAB | | + + + + + + | K | 4.4 | 3.6 - 5.1 | EXTERNAL | | | | | mmol/L | LAB | | + + + + + + | Cl | 105 | 95 - 112 mmol/L | EXTERNAL | | | | | | LAB | | + + + + + + | CO2 | 23 | 19 - 31 mmol/L | EXTERNAL | | | | | | LAB | | + + + + + + | Anion Gap | 18.4 | 7 - 21 mmol/L | EXTERNAL | | | | | | LAB | | + + + + + + | eGFR if not | | | EXTERNAL | | | | | | LAB | | | LAO | | | | | + + + + + + | Phosphorus, | 2.4 (A) | 2.5 - 5.0 | EXTERNAL | | | Inorganic | | | LAB | | + + + + + + | BUN/Creatin | 14.6 | 6.0 - 28.6 | EXTERNAL | | | ine Ratio | | | LAB | | + + + + + + | Calcium | 9.2 | 8.4 - 10.2 | EXTERNAL | | | | | mg/dL | LAB | | + + + + + + | Estimated | 45 | mg/dL | EXTERNAL | | | [...]
--- OUTSIDE RECORDS SUMMARY | ~2019-05-09 | XMS | Encounter Summary ---
Demographics + + + | Address | [address] | | | [place] [address] | + + + | Home Phone | | + + + | Preferred Language | Unknown | + + + | Marital Status | Unknown | + + + | Worship Affiliation | Unknown | + + + | Race | Unknown | + + + | Ethnic Group | Unknown | + + + Author + + + | Author | [facility] | | | and [place] | + + + | Organization | [facility] | | | [...] Team Providers + +------+ + | Care Trench Digging Machine Operator Name | Role | Phone | + +------+ + | Oziel Michael MD | PCP | | + +------+ + Reason for Referral Evaluate & Treat (Routine) + + + + + + + | Status | Reason | Specialty | Diagnoses / | Referred By | Referred To | | | | | Procedures | Contact | Contact | + + + + + + + | Authorized | Specialty | Dermatology | Diagnoses | [facility], | | | | Services | | Benign | Alexx Shirley MD | | | | Required | | essential | [address] | | | | | | hypertension | [address] | | | | | | Persistent | [place], | | | | | | proteinuria | [place] [address] | | | | | | CKD | Phone: | | | | | | (chronic | [phone] | | | | | | kidney | Fax: | | | | | | disease), | [phone] | | | | | | stage III | | | | | | | (HCC) Long | | | | | | | term | | | | | | | (current) | | | | | | | use of | | | | | | | systemic | | | | | | | steroids | | | | | | | Immunosuppre | | | | | | | ssion (HCC) | | | | | | | Status post | | | | | | | kidney | | | | | | | transplant | | | + + + + + + + Encounter Details +--------+ + + + + | Date | Type | Department | Care Team | Description | +--------+ + + + + | 02/25/ | Orders Only | [facility] | Alexx Gutierrez MD | Essential | | 2019 | | NEPHROLOGY [place] | [address] [place] | hypertension, benign | | | | [address] [place] | [address] [place], [place] | (Primary Dx); | | | | [address] [place], [place] | [address] | Persistent | | | | [address] | | proteinuria; CKD | | | | [phone] | | (chronic kidney | | | | | | disease), stage III | | | | | | ([facility]); joint terminal attack controller | | | | | | (current) use of | | | | | | 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; | | | | | | Immunosuppression | | | | | | ([facility]); Kidney | | | | | | replaced by | | | | | | transplant | +--------+ + + + + Social [...] 2019 | Visit | | [address] [facility] [address] | | | | | | [address] [place], [place] | | | | | | [address] | | | | | | | | +--------+---------+ + + + + +---------+--------+ + + | Name | Type | Priori | Associated Diagnoses | Order Schedule | | | | ty | | | + +---------+--------+ + + | Renal Function Panel | Lab | Routin | Essential | Expected: | | | | e | hypertension, benign | 05/28/2019, Expires: | | | | | Persistent | 02/26/2020 | | | | | proteinuria CKD | | | | | | (chronic kidney | | | | | | disease), stage III | | | | | | (HCC) Kidney | | | | | | replaced by | | | | | | transplant | | + +---------+--------+ + + | Magnesium | Lab | Routin | Essential | Expected: | | | | e | hypertension, benign | 05/28/2019, Expires: | | | | | Persistent | 02/26/2020 | | | | | proteinuria CKD | | | | | | (chronic kidney | | | | | | disease), stage III | | | | | | (HCC) Kidney | | | | | | replaced by | | | | | | transplant | | + +---------+--------+ + + | CBC with | Lab | Routin | Essential | Expected: | | Differential | | e | hypertension, benign | 05/28/2019, Expires: | | | | | Persistent | 02/26/2020 | | | | | proteinuria CKD | | | | | | (chronic kidney | | | | | | disease), stage III | | | | | | (HCC) Kidney | | | | | | replaced by | | | | | | transplant | | + +---------+--------+ + + | AST | Lab | Routin | Essential | Expected: | | | | e | hypertension, benign | 05/28/2019, Expires: | | | | | Persistent | 02/26/2020 | | | | | proteinuria CKD | | | | | | (chronic kidney | | | | | | disease), stage III | | | | | | (HCC) Kidney | | | | | | replaced by | | | | | | transplant | | + +---------+--------+ + + | ALT | Lab | Routin | Essential | Expected: | | | | e | hypertension, benign | 05/28/2019, Expires: | | | | | Persistent | 02/26/2020 | | | | | proteinuria CKD | | | | | | (chronic kidney | | | | | | disease), stage III | | | | | | ([facility]) Kidney | | | | | | replaced by | | | | | | transplant | | + +---------+--------+ + + | CK Total with CK-MB | Lab | Routin | Essential | Expected: | | | | e | hypertension, benign | 05/28/2019, Expires: | | | | | Persistent | 02/26/2020 | | | | | proteinuria CKD | | | | | | (chronic kidney | | | | | | disease), stage III | | | | | | ([facility]) Kidney | | | | | | replaced by | | | | | | transplant | | + +---------+--------+ + + | Tacrolimus ([id number]) | Lab | Routin | Essential | Expected: | | Trough | | e | hypertension, benign | 05/28/2019, Expires: | | | | | Persistent | 02/26/2020 | | | | | proteinuria CKD | | | | | | (chronic kidney | | | | | | disease), stage III | | | | | | ([facility]) | | | | | | Immunosuppression | | | | | | ([facility]) Kidney | | | | | | replaced by | | | | | | transplant | | + +---------+--------+ + + | Urinalysis With | Lab | Routin | Essential | Expected: | | Microscopic | | e | hypertension, benign | 05/28/2019, Expires: | | | | | Persistent | 02/26/2020 | | | | | proteinuria CKD | | | | | | (chronic kidney | | | | | | disease), stage III | | | | | | ([facility]) Kidney | | | | | | replaced by | | | | | | transplant | | + +---------+--------+ + + | Protein/Creatinine | Lab | Routin | Essential | Expected: | | Ratio, Urine | | e | hypertension, benign | 05/28/2019, Expires: | | | | | Persistent | 02/26/2020 | | | | | proteinuria CKD | | | | | | (chronic kidney | | | | | | disease), stage III | | | | | | ([facility]) Kidney | | | | | | replaced by | | | | | | transplant | | + +---------+--------+ + + | DEXA Bone Density w | Imaging | Routin | Essential | Expected: | | Vert Fx Assmt | | e | hypertension, benign | 02/26/2019, Expires: | | | | | Persistent | 02/26/2020 | | | | | proteinuria CKD | | | | | | (chronic kidney | | | | | | disease), stage III | | | | | | ([facility]) joint terminal attack controller | | | | | | (current) use of | | | | | | 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 | | | | | | Immunosuppression | | | | | | ([facility]) Kidney | | | | | | replaced by | | | | | | transplant | | + +---------+--------+ + + + + +--------+ + + | Name | Type | Priori | Associated Diagnoses | Order Schedule | | | | ty | | | + + +--------+ + + | Ambulatory referral | Outpatient | Routin | Essential | Ordered: 02/26/2019 | | to Dermatology | Referral | e | hypertension, benign | | | | | | Persistent | | | | | | proteinuria CKD | | | | | | (chronic kidney | | | | | | disease), stage III | | | | | | ([facility]) joint terminal attack controller | | | | | | (current) use of | | | | | | 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 | | | | | | Immunosuppression | | | | | | ([facility]) Kidney | | | | | | replaced by | | | | | | transplant | | + + +--------+ + + documented as of this encounter Visit Diagnoses + + | Diagnosis | + + | Essential hypertension, benign - Primary | + + | Persistent proteinuria Proteinuria | + + | CKD (chronic kidney disease), stage III (HCC) Chronic kidney disease, Stage III | | (moderate) | + + | joint terminal attack controller (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
--- OUTSIDE RECORDS SUMMARY | ~2019-05-09 | XMS | Encounter Summary ---
Demographics + + + | Address | [address] | | | [place] [address] | + + + | Home Phone [...] Author + + + | Author | [email or web address] | + + + | Organization | [facility] | + + + | Address | Unknown | + + + | Phone | Unavailable | + + + Support + + +---------+ + | Name | Relationship | Address | Phone | + + +---------+ + | Olesya Lamb | ECON | Unknown | | + + +---------+ + Care Team Providers + +------+ + | Care Hospital Admitting Clerk Name | Role | Phone | + +------+ + | Oziel Michael MD | PCP | | + +------+ + Encounter Details +--------+ + + + + | Date | Type | Department | Care Team | Description | +--------+ + + + + | 11/23/ | Lab | LAB IMMUN[facility]ENETIC | | | | 2015 | Requisition | [facility] | | | | | | [address] | | | | | | [place], | | | | | | [place] [address] | | | +--------+ + + + [...] FLOW HLA AB PRA | Routin | 11/24/2015 | | | | SCREEN I/II | e | 12:59 PM | | | | | | PDT | | | + +--------+ + + + documented in this encounter Results LIT FLOW HLA AB PRA SCREEN I/II (11/24/2015 12:59 PM PDT) + + | Specimen | + + | Blood - Blood | | (substance) | + + + + + + + | Performing | Address | City/State/Zipcode | Phone Number | | Organization | | | | + + + + + | [facility] - | [address] | [place] [address] | | | IMMUNOGENETICS/TRANS | [address] | | | | [facility] | | | | + + + + + documented in this encounter Visit Diagnoses Not on filedocumented in this encounter"
--- OUTSIDE RECORDS SUMMARY | ~2019-05-09 | XMS | Encounter Summary ---
Demographics + + + | Address | [address] | | | [place] [address] | + + + | Home Phone | | + + + | Preferred Language | Unknown | + + + | Marital Status | Unknown | + + + | Congregational Affiliation | Unknown | + + + [...] Team Providers + +------+ + | Care Coding Clerks Supervisor Name | Role | Phone | + +------+ + | Oziel Michael MD | PCP | | + +------+ + Encounter Details +--------+ + + + + | Date | Type | Department | Care Team | Description | +--------+ + + + + | 01/10/ | Orders Only | [facility] | Alexx Gutierrez MD | | | 2017 | | NEPHROLOGY [place] | [address] [place] | | | | | [address] [place] | [address] [place], [place] | | | | | [address] [place], [place] | [address] | | | | | [address] | | | | | | [phone] | | | +--------+ + + + [...] 2019 | Visit | | [address] [facility] | | | | | | [address] [place], [place] | | | | | | [address] | | | | | | | [...]
--- OUTSIDE RECORDS SUMMARY | ~2019-05-09 | XMS | Encounter Summary ---
Demographics + + + | Address | [address] | | | [place] [address] | + + + | Home Phone | | + + + | Preferred Language | Unknown | + + + | Marital Status | Unknown | + + + | Anglican Affiliation | Unknown | + + + | Race | Unknown | + + + | Ethnic Group | Unknown | + + + Author + + + | Author | [facility] | | | and [place] | + + + | Organization | [facility] | | | [...] Team Providers + +------+ + | Care Filing Writer Name | Role | Phone | + +------+ + PCP | Unavailable | + +------+ + Encounter Details +--------+ + + + + | Date | Type | Department | Care Team | Description | +--------+ + + + + | 05/24/ | Hospital | [facility] | Conversion | | | 2011 | Encounter | CENTER CV INTRA OP | Transaction, | | | | | [address] | Provider Unknown | | | | | [place], [place] | [phone] | | | | | [address] | | | | | | [phone] | Alexx Gutierrez MD | | | | | | [address] [place] | | | | | | [address] [place], [place] | | | | | | [address] | | | | | | | [...] 1549 Date of Service: 05/24/111547 Status: Signed Beverage Distiller: Daniele Pemberton NP (Nurse Practitioner) [facility] Service: Interventional Radiology Post-Procedure Discharge Note DISCHARGE [...] Follow up: Alexx Gutierrez MD [address] [facility], [facility] [address] [place] [address] Discharge Medications: Current Discharge Medication List CONTINUE these medications which have NOT CHANGED Details amlodipine (NORVASC) 10 MG tablet Take 10 mg by mouth daily. B Ohxcmgv-H-Tbdsq Acid (STERLING-BRITT PO) Take by mouth daily. [...] 2019 | Visit | | [address] [facility] | | | | | | [address] [place] | | | | | | [address] | | | | | | | [...] centrally | | | with the standard 4-Syrian micropuncture set. Contrast was then | | [...] then | | | secured with a 4-Syrian sheath. The area of stenosis was traversed [...] fistula was accessed directed centrally withthe standard 4-Syrian | | micropuncture set. Contrast was then [...] was then | | secured with a 4-Syrian sheath. The area of stenosis wastraversed with [...] centrally | | | with the standard 4-Syrian micropuncture set. Contrast was then | | [...] then | | | secured with a 4-Syrian sheath. The area of stenosis was traversed [...] fistula was accessed directed centrally withthe standard 4-Syrian | | micropuncture set. Contrast was then [...] was then | | secured with a 4-Syrian sheath. The area of stenosis wastraversed with [...]
--- OUTSIDE RECORDS SUMMARY | ~2019-05-09 | XMS | Encounter Summary ---
Demographics + + + | Address | [address] | | | [place] [address] | + + + | Home Phone | | + + + | Preferred Language | Unknown | + + + | Marital Status | Single | + + + | Pentecostal Affiliation | Unknown | + + + | Race | Black or | + + + | Ethnic Group | Not or | + + + Author + + + | Author | [facility] Self Representation Document Preparation [facility] | + + + | Organization | [facility] | + + + | Address | Unknown | + + + | Phone | Unavailable | + + + Support + + +---------+ + | Name | Relationship | Address | Phone | + + +---------+ + | Olesya Lamb | ECON | Unknown | | + + +---------+ + Care Team Providers + +------+ + | Care File Machine Operator Name | Role | Phone | + +------+ + | Oziel Michael MD | PCP | | + +------+ + Encounter Details +--------+ + + + + | Date | Type | Department | Care Team | Description | +--------+ + + + + | 06/26/ | Ancillary | LAB IMMUNOGENETIC | | | | 2013 | Orders | [facility]ANSPLANT LAB | | | | | | [address] | | | | | | [address] [place], | | | | | | [place] [address] | | | +--------+ + + + [...] FLOW HLA AB PRA | Routin | 06/26/2013 | | | | SCREEN I/II | e | 3:42 PM | | | | | | PST | | | + +--------+ + + + documented in this encounter Results LIT FLOW HLA AB PRA SCREEN I/II (06/26/2013 3:42 PM PST) + + | Specimen | + + | Blood - Blood | + + + + + + + | Performing | Address | City/State/Zipcode | Phone Number | | Organization | | | | + + + + + | [facility] - | [address] | [place] [address] | | | IMMUNOGENETICS/TRANS | [address] | | | | [facility] | | | | + + + + + documented in this encounter Visit Diagnoses Not on filedocumented in this encounter"
--- OUTSIDE RECORDS SUMMARY | ~2019-05-09 | XMS | Encounter Summary ---
Demographics + + + | Address | [address] | | | [place] [address] | + + + | Home Phone | | + + + | Preferred Language | Unknown | + + + | Marital Status | Unknown | + + + | Zoroastrian Affiliation | Unknown | + + + | Race | Unknown | + + + | Ethnic Group | Unknown | + + + Author + + + | Author | [facility] | | | and [place] | + + + | Organization | [facility] | | | [...] Team Providers + +------+ + | Care Disability Rater Name | Role | Phone | + +------+ + | Oziel Michael MD | PCP | | + +------+ + Encounter Details +--------+ + + + + | Date | Type | Department | Care Team | Description | +--------+ + + + + | 05/27/ | Orders Only | [facility] | Conversion | | | 2016 | | NEPHROLOGY PERRY | Transaction, | | | | | [address] | Provider Unknown | | | | | [address] [place], [place] | | | | | | [address] | (Fax) | | | | | [phone] | | | +--------+ + + + [...] 2019 | Visit | | [address] [facility] | | | | | | [address] [place], [place] | | | | | | [address] | | | | | | | | +--------+---------+ + + + documented as of this encounter Procedures + +--------+ + + + | Procedure Name | Priori | Date/Time | Associated Diagnosis | Comments | | | ty | | | | + +--------+ + + + | EXTERNAL LAB: | Routin | 05/27/2016 | | Results for this | | TACROLIMUS LEVEL, | e | 10:20 AM | | procedure are in the | | LC-MS/MS | | PST | | results section. | + +--------+ + + + | EXTERNAL LAB: CBC | Routin | 05/27/2016 | | Results for this | | | e | 10:20 AM | | procedure are in the | | | | PST | | results section. | + +--------+ + + + | IRON AND IRON | Routin | 05/27/2016 | | Results for this | | BINDING CAPACITY | e | 10:20 AM | | procedure are in the | | | | PST | | results section. | + +--------+ + + + | LIPID PANEL | Routin | 05/27/2016 | | Results for this | | | e | 10:20 AM | | procedure are in the | | | | PST | | results section. | + +--------+ + + + | ALT | Routin | 05/27/2016 | | Results for this | | | e | 10:20 AM | | procedure are in the | | | | PST | | results section. | + +--------+ + + + | URINALYSIS, | Routin | 05/27/2016 | | Results for this | | MICROSCOPIC ONLY | e | 10:20 AM | | procedure are in the | | | | PST | | results section. | + +--------+ + + + | PROTEIN/CREATININE | Routin | 05/27/2016 | | Results for this | | RATIO, URINE | e | 10:20 AM | | procedure are in the | | | | PST | | results section. | + +--------+ + + + | URIC ACID | Routin | 05/27/2016 | | Results for this | | | e | 10:20 AM | | procedure are in the | | | | PST | | results section. | + +--------+ + + + | TRANSFERRIN | Routin | 05/27/2016 | | Results for this | | | e | 10:20 AM | | procedure are in the | | | | PST | | results section. | + +--------+ + + + | AST | Routin | 05/27/2016 | | Results for this | | | e | 10:20 AM | | procedure are in the | | | | PST | | results section. | + +--------+ + + + | MAGNESIUM | Routin | 05/27/2016 | | Results for this | | | e | 10:20 AM | | procedure are in the | | | | PST | | results section. | + +--------+ + + + | FERRITIN | Routin | 05/27/2016 | | Results for this | | | e | 10:20 AM | | procedure are in the | | | | PST | | results section. | + +--------+ + + + | CK TOTAL | Routin | 05/27/2016 | | Results for this | | | e | 10:20 AM | | procedure are in the | | | | PST | | results section. | + +--------+ + + + | RENAL FUNCTION PANEL | Routin | 05/27/2016 | | Results for this | | | e | 10:20 AM | | procedure are in the | | | | PST | | results section. | + +--------+ + + + documented in this encounter Results External Lab: Tacrolimus Level, LC-MS/MS (05/27/2016 10:20 AM PST) + +-------+ + + + | Component | Value | Ref Range | Performed | Pathologist | | | | | At | Signature | + +-------+ + + + | Tacrolimus | 4.4 | | EXTERNAL | | | Level [...] | | | + +---------+ + + Iron and Iron Binding Capacity (05/27/2016 10:20 AM PST) + + + + + + | Component | Value | Ref Range | Performed | Pathologist | | | | | At | Signature | + + + + + + | Iron | 56.54 | 37 - 160 | EXTERNAL | | | | | | LAB | | + + + + + + | Iron | 19.4 (A) | 20 - 55 | EXTERNAL | | | Saturation | | | LAB | | + + + + + + | TIBC | 292 | 245 - 400 | EXTERNAL | | | | | [...] + +---------+ + + Protein/Creatinine Ratio, Urine (05/27/2016 10:20 AM PST) + + + + + + | Component | Value | Ref Range | Performed | Pathologist | | | | | At | Signature | + + + + + + | Protein/Cre | 216.9 (A) | 0 - 150 | EXTERNAL [...] + +---------+ + + Urinalysis, Microscopic Only (05/27/2016 10:20 AM PST) + + + + + [...] + + + + | Specific | 1.018 | 1.005 - 1.030 | EXTERNAL | | | [place] | | | LAB | | + [...] + +---------+ + + External Lab: MARILUZ (05/27/2016 10:20 AM PST) + + + + + + | Component | Value | Ref Range | Performed | Pathologist | | | | | At | Signature | + + + + + + | WBC | 4.5 | 4.5 - 11.0 10 | EXTERNAL | | | | | | LAB | | + + + + + + | RED CELL | 4.70 | 4.3 - 5.7 10 | EXTERNAL | | | COUNT | | | LAB | | + + + + + + | Hgb | 13.6 | 13.5 - 18.0 | EXTERNAL | | | | | g/dL | LAB | | + + + + + + | Hematocrit, | 42.1 | 41 - 50 % | EXTERNAL | | | POC | | | LAB | | + + + + + + | MCV | 88.9 | 81 - 99 fL | EXTERNAL | | | | | | LAB | | + + + + + + | MCH | 29 | 27 - 33 pg | EXTERNAL | | | | | | LAB | | + + + + + + | MCHC | 32 | 30 - 36 g/dL | EXTERNAL | | | | | | LAB | | + + + + + + | Platelet | 167 | 140 - 440 K/ L | EXTERNAL | | | Count | | | LAB | | | Plasma | | | | | + + + + + + | RDW-CV | 16.3 (A) | 10.5 - 15.0 % | [...] | + +---------+ + + Uric Acid (05/27/2016 10:20 AM PST) + +-------+ + + + | Component | Value | Ref Range | Performed | Pathologist | | | | | At | Signature | + +-------+ + + + | Uric Acid | 7.3 | 4.4 - 7.6 | EXTERNAL | [...] | | | + +---------+ + + Transferrin (05/27/2016 10:20 AM PST) + +--------+ + + + | Component | Value | Ref Range | Performed | Pathologist | | | | | At | Signature | + +--------+ + + + | TRANSFERRIN | 208.64 | 180 - 329 | EXTERNAL | | | | | [...] | | + +---------+ + + ALT (05/27/2016 10:20 AM PST) + +-------+ + + + | Component | Value | Ref Range | Performed | Pathologist | | | | | At | Signature | + +-------+ + + + | ALT | 28 | 7 - 52 U/L | EXTERNAL [...] | | + +---------+ + + AST (05/27/2016 10:20 AM PST) + +-------+ + + + | Component | Value | Ref Range | Performed | Pathologist | | | | | At | Signature | + +-------+ + + + | AST | 21 | 13 - 39 U/L | EXTERNAL [...] | | + +---------+ + + Magnesium (05/27/2016 10:20 AM PST) + +---------+ + + + [...] | | | + +---------+ + + Ferritin (05/27/2016 10:20 AM PST) + + + + + + | Component | Value | Ref Range | Performed | Pathologist | | | | | At | Signature | + + + + + + | Ferritin, | 702.5 (A) | 30 - 400 ng/mL | EXTERNAL | | | External | | | LAB | | + [...] | + +---------+ + + CK Total (05/27/2016 10:20 AM PST) + +-------+ + + + | Component | Value | Ref Range | Performed | Pathologist | | | | | At | Signature | + +-------+ + + + | CK, Total | 140 | 24 - 196 U/L | EXTERNAL | | | | [...] + +---------+ + + Renal Function Panel (05/27/2016 10:20 AM PST) + + + + + + | Component | Value | Ref Range | Performed | Pathologist | | | | | At | Signature | + + + + + + | Glucose, | 101 (A) | 70 - 100 mg/dL | EXTERNAL | | | Fasting | | | LAB | | + + + + + + | BUN | 20 | 6 - 23 mg/dL | EXTERNAL | | | | | | LAB | | + + + + + + | Creatinine | 1.51 (A) | 0.70 - 1.33 | EXTERNAL | | | | | mg/dL | LAB | | + + + + + + | PHOSPHORUS | | mg/dL | EXTERNAL | | | | | | LAB | | + + + + + + | Albumin | 3.9 | 3.5 - 5.0 | EXTERNAL | | | | | | LAB | | + + + + + + | Na | 140 | 132 - 143 | EXTERNAL | | | | | mmol/L | LAB | | + + + + + + | K | 4.2 | 3.6 - 5.1 | EXTERNAL | | | | | mmol/L | LAB | | + + + + + + | Cl | 106 | 95 - 112 mmol/L | EXTERNAL | | | | | | LAB | | + + + + + + | CO2 | 25 | 19 - 31 mmol/L | EXTERNAL | | | | | | LAB | | + + + + + + | Anion Gap | 13.2 | 7 - 21 mmol/L | EXTERNAL | | | | | | LAB | | + + + + + + | eGFR if not | | | EXTERNAL | | | | | | LAB | | | CZECH | | | | | + + + + + + | Phosphorus, | 2.2 (A) | 2.5 - 5.0 | EXTERNAL | | | Inorganic | | | LAB | | + + + + + + | BUN/Creatin | 13.2 | 6.0 - 28.6 | EXTERNAL | | | ine Ratio | | | LAB | | + + + + + + | Calcium | 8.7 | 8.4 - 10.2 | EXTERNAL | | | | | mg/dL | LAB | | + + + + + + | Estimated | 48 | mg/dL | EXTERNAL | | | [...] | + +---------+ + + Lipid Panel (05/27/2016 10:20 AM PST) + +---------+ + + + | Component | Value | Ref Range | Performed | Pathologist | | | | | At | Signature | + +---------+ + + + | Cholesterol | 217 | mg/dL | EXTERNAL | | | | | | LAB | | + +---------+ + + + | Triglycerid | 173 (A) | 30 - 150 mg/dL | EXTERNAL | | | es | | | LAB | | + +---------+ + + + | HDL | 41.4 | mg/dl | EXTERNAL | | | | | | LAB | | + +---------+ + + + | LDL | 141 | mg/dL | EXTERNAL | | | [...] +---------+ + + + | Chol/HDL | 5.2 | | EXTERNAL | | | Ratio | | | LAB | | + +---------+ + + + | VLDL | 35 | 4 - 40 mg/dL | EXTERNAL | | | | | | LAB | | + +---------+ + + + | Non HDL | 176 | | EXTERNAL | | | Chol. [...]
--- OUTSIDE RECORDS SUMMARY | ~2019-05-09 | XMS | Encounter Summary ---
Demographics + + + | Address | [address] | | | [place] [address] | + + + | Home Phone [...] Team Providers + +------+ + | Care Ecommerce Project Manager Name | Role | Phone | + +------+ + | Oziel Michael MD | PCP | | + +------+ + Encounter Details +--------+ + + + + | Date | Type | Department | Care Team | Description | +--------+ + + + + | 05/24/ | Orders Only | [facility] GENER[facility] OP | Conversion | | | 2012 | | CONVERSION [address] | Transaction, | | | | [address] | Provider Unknown | | | | | [place] | [phone] | | | | | [address] | | | | | | [phone] | | | +--------+ + + + [...] 2020 | Visit | | [address] [facility] | | | | | | [address] [place] | | | | | | [address] | | | | | | | | +--------+---------+ + + + documented as of this encounter Visit Diagnoses Not on filedocumented in this encounter"
--- OUTSIDE RECORDS SUMMARY | ~2019-05-09 | XMS | Encounter Summary ---
Demographics + + + | Address | [address] | | | [place] [address] | + + + | Home Phone | | + + + | Preferred Language | Unknown | + + + | Marital Status | Unknown | + + + | Orthodoxy Affiliation | Unknown | + + + [...] Team Providers + +------+ + | Care Field Service Consultant Name | Role | Phone | + +------+ + | Oziel Michael MD | PCP | | + +------+ + Encounter Details +--------+ + + + + | Date | Type | Department | Care Team | Description | +--------+ + + + + | 12/11/ | Orders Only | [facility] | Anthony Martinez, | | | 2018 | | NEPHROLOGY [place] | TAX PROCESSOR [address] | | | | | [address] | [address] | | | | | [place] | [place] | | | | | [address] | [address] | | | | | [phone] | [phone] | | | | | | | [...] 2020 | Visit | | [address] [facility] | | | | | | [address] [place] | | | | | | [address] | | | | | | | | +--------+---------+ + + + documented as of this encounter Visit Diagnoses Not on filedocumented in this encounter"
--- OUTSIDE RECORDS SUMMARY | ~2019-05-09 | XMS | Encounter Summary ---
Demographics + + + | Address | [address] | | | [place] [address] | + + + | Home Phone | | + + + | Preferred Language | Unknown | + + + | Marital Status | Unknown | + + + | Tenriism Affiliation | Unknown | + + + | Race | Unknown | + + + | Ethnic Group | Unknown | + + + Author + + + | Author | [facility] | | | and [place] | + + + | Organization | [facility] | | | and [...] Team Providers + +------+ + | Care Motion Picture Set Worker Name | Role | Phone | [...] | | | | proteinuria | [place] [address] | | | | | | CKD | Phone: | | | | | | (chronic | [phone] | | | | | | kidney | Fax: | | | | | | disease), | [phone] | | | | | | stage [...] + | 02/25/ | Orders Only | [facility] | Alexx Gutierrez MD | Essential | | 2019 | | NEPHROLOGY [place] | [address] [place] | hypertension, benign | | | | [address] [place] | [address] [place], [place] | (Primary Dx); | | | | [address] [place], [place] | [address] | Persistent | | | | [address] | | proteinuria; CKD | | | | [phone] | | (chronic kidney | | | | | | disease), stage III | | | | | | ([facility]); terminal clerk | | | | | | (current) use of | | | | | | 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; | | | | | | Immunosuppression | | | | | | ([facility]); Kidney | | | | | | [...] 2019 | Visit | | [address] [facility] [place] | | | | | | [address] [place], [place] | | | | | | [address] | | | | | | | [...] III | | | | | | ([facility]) Kidney | | | | | | [...] III | | | | | | ([facility]) Kidney | | | | | | [...] III | | | | | | ([facility]) | | | | | | Immunosuppression | | | | | | ([facility]) Kidney | | | | | | [...] III | | | | | | ([facility]) Kidney | | | | | | [...] III | | | | | | ([facility]) Kidney | | | | | | [...] III | | | | | | ([facility]) terminal clerk | | | | | | (current) use of | | | | | | 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 | | | | | | Immunosuppression | | | | | | ([facility]) Kidney | | | | | | [...] III | | | | | | ([facility]) terminal clerk | | | | | | (current) use of | | | | | | 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 | | | | | | Immunosuppression | | | | | | ([facility]) Kidney | | | | | | [...] | | (moderate) | + + | terminal clerk (current) use of 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 | + + | Immunosuppression ([facility]) Unspecified disorder of immune mechanism | + + | Kidney replaced by transplant | + + documented in this encounter"
--- OUTSIDE RECORDS SUMMARY | ~2019-05-09 | XMS | Encounter Summary ---
Demographics + + + | Address | [address] | | | [place] [address] | + + + | Home Phone [...] + + | Author | [facility] | + + + | Organization | [facility] | + + + | Address | Unknown | + + + | Phone | Unavailable | + + + Support + + +---------+ + | Name | Relationship | Address | Phone | + + +---------+ + | Olesya Lamb | ECON | Unknown | | + + +---------+ + Care Team Providers + +------+ + | Care Stonehand Name | Role | Phone | + +------+ + | Oziel Michael MD | PCP | | + +------+ + Encounter Details +--------+ + + + + | Date | Type | Department | Care Team | Description | +--------+ + + + + | 09/20/ | Ancillary | LAB IMMUNOGENETIC | | | | 2013 | Orders | AND TRANSPLANT LAB | | | | | | [address] | | | | | | [address] [place], | | | | | | [place] [address] | | | +--------+ + + + [...] FLOW HLA AB PRA | Routin | 09/20/2013 | | | | SCREEN I/II | e | 11:29 AM | | | | | | PDT | | | + +--------+ + + + documented in this encounter Results LIT FLOW HLA AB PRA SCREEN I/II (09/20/2013 11:29 AM PDT) + + | Specimen | + + | Blood - Blood | + + + + + + + | Performing | Address | City/State/Zipcode | Phone Number | | Organization | | | | + + + + + | [facility] - | [address] | [place] [address] | | | IMMUNOGENETICS/TRANS | [address] | | | | [facility] | | | | + + + + + documented in this encounter Visit Diagnoses Not on filedocumented in this encounter"
--- OUTSIDE RECORDS SUMMARY | ~2019-05-09 | XMS | Encounter Summary ---
Demographics + + + | Address | [address] | | | [place] [address] | + + + | Home Phone | | + + + | Preferred Language | Unknown | + + + | Marital Status | Single | + + + | Sikh Affiliation | Unknown | + + + | Race | Black or | + + + | Ethnic Group | Not or | + + + Author + + + | Author | [email or web address] | + + + | Organization | [facility] | + + + | Address | Unknown | + + + | Phone | Unavailable | + + + Support + + +---------+ + | Name | Relationship | Address | Phone | + + +---------+ + | Olesya Lamb | ECON | Unknown | | + + +---------+ + Care Team Providers + +------+ + | Care Vertica Architect Name | Role | Phone | + [...] | | | | | [address] [place], | | | | | | [place] [address] | | | +--------+ + + + [...] [facility] - | [address] | [place] [address] | | | IMMUNOGENETICS/TRANS | [address] [...] [facility] - | [address] | [place] [address] | | | IMMUNOGENETICS/TRANS | [address] | | | | [facility] | | | | + + + + + documented in this encounter Visit Diagnoses Not on filedocumented in this encounter"
--- OUTSIDE RECORDS SUMMARY | ~2019-05-09 | XMS | Encounter Summary ---
Demographics + + + | Address | [address] | | | [place] [address] | + + + | Home Phone | | + + + | Preferred Language | Unknown | + + + | Marital Status | Unknown | + + + | Confucianism Affiliation | Unknown | + + + | Race | Unknown | + + + | Ethnic Group | Unknown | + + + Author + + + | Author | [facility] | | | and [place] | + + + | Organization | [facility] | | | and [place] | + [...] Team Providers + +------+ + | Care House Detective Name | Role | Phone | + +------+ + PCP | Unavailable | + +------+ + Encounter Details +--------+ + + + + | Date | Type | Department | Care Team | Description | +--------+ + + + + | 11/30/ | Hospital | [facility] | Conversion | ESRD (end stage | | 2012 | Encounter | CENTER CV INTRA OP | Transaction, | renal disease) ([facility]) | | | | [address] | Provider Unknown | | | | | [place], [place] | [phone] | | | | | [address] | | | | | | [phone] | Ziyad Russ, | | | | | | [address] | | | | | | [place], [place] | | | | | | [address] | | | | | | | [...] Progress Notes Conversion Transaction, Provider Unknown - 12/01/2011 4:12 PM PDTFormatting of this note m ight be different from the original. Progress Notes by Alice Conrad RN at 12/01/111611 Author: Alice Conrad RN Service: (none) Author Type: Registered Nurse Filed: 12/01/111613 Date of Service: 12/01/111611 Status: Signed Meter Mechanic: Alice Conrad RN (Registered Nurse) Pt tolerated food/drinks well, no c/o nausea, vss, pt able to dress independantly, will d/c by ambulation to car. Discharge insturctions given both written and orally. ms docume nted in this encounter Plan of [...] [place] | | | | | | [id number] | | | | | | | | +--------+---------+ + + + documented as of this encounter Procedures + +--------+ + + + | Procedure Name | Priori | Date/Time | Associated Diagnosis | Comments | | | ty | | | | + +--------+ + + + | IR INJECTION | Routin | 12/01/2011 | | Results for this | | DIALYSIS CIRCUIT W | e | 3:45 PM | | procedure are in the | | ANGIOPLASTY | | PDT | | results section. | + +--------+ + + + | IR INJECTION | Routin | 12/01/2011 | | Results for this | | DIALYSIS CIRCUIT | e | 3:45 PM | | procedure are in the | | | | PDT | | results section. | + +--------+ + + + documented in this encounter Results IR Inj Dialysis Circuit w Angioplasty (12/01/2011 3:45 PM PDT) + + | Specimen | + + | | + + + + + | Narrative | Performed At | + + + | [facility] 12/01/2011 1:45 PM | | | HISTORY: 51 years. Male. With chronic kidney disease stage V | | | presents with decreasing KT over V. EXAMINATION Left brachia | | | cephalic fistulogram and angioplasty of the multiple tandem stenosis | | | in left cephalic vein using 7 mm x 4 cm balloon catheter. | | | MEDICATIONS: Isovue-200 40 cc, Heparin 4800 units intravenous, | | | Versed 2 mg intravenous, fentanyl 50-mcg intravenous. | | | Intra-procedure sedation time 30 minutes. The radiation dose 23 | | | mGray, Fluoroscopy time 1.5 minutes. Appropriate physiologic | | | monitoring, maintenance of adequate conscious sedation and | | | independent halfway supervision performed throughout the | | | [...] needle and | | | exchanged for 4-Malaysian micropuncture sheath. Initial fistula | | | pressure was obtained and fistulogram obtained from the left cubital | | | fossa to the right atrium. Given the multiple tandem stenosis in | | | proximal and mid left cephalic vein in including in-stent restenosis, | | | I decided to perform angioplasty of the venous lesions. 4-Malaysian | | | micropuncture sheath was exchanged for 6-Malaysian short sheath over a | | | 0.035, angled Glidewire. 7 mm x 4 cm balloon catheter was advanced | | | over the 0.035, angled Glidewire. Balloon was positioned across | | | stenosis in proximal and mid left cephalic vein and angioplasty was | | | performed. During inflation of [...] removed and hemostasis obtained with manual pressure. | | | No immediate procedural complications. Patient tolerated the | | | procedure well. FINDINGS 1. Initial fistula pressure 80/44 mm | | | Hg, arterial pressure 140/76 mm Hg, final fistula pressure 52/34 mm | | | Hg. 2. Left brachia cephalic fistulogram shows tandem, diffuse, | | | more than 70% stenosis involving proximal and mid portions of the left | | | cephalic vein with the in-stent restenosis. Arterial venous | | | anastomosis, distal left cephalic vein, left subclavian vein and | | | brachial cephalic veins and superior vena cava are widely patent. 3. | | | Successful angioplasty of the proximal and mid left cephalic venous | | | stenosis with no significant residual vein stenosis. Good | | | hemodynamic results. IMPRESSION: 1. Successful left arm AV | | | fistulogram and angioplasty the proximal and mid left cephalic venous | | | stenosis with the good hemodynamic and anatomic results. | | | | | + + + + + | Procedure Note | + + | Abhishek, Rad Conversion - 01/05/2019 9:02 AM [facility] | | FISTULAGRAM12/01/2011 1:45 PM HISTORY:51 years. Male. With chronic kidney disease stage | | V presents with decreasing KT over V. EXAMINATION Left brachia cephalic fistulogram | | and angioplasty of the multiple tandem stenosis in left cephalic vein using 7 mm x 4 cm | | balloon catheter. MEDICATIONS: Isovue-200 40 cc, Heparin 4800 units intravenous, Versed | | 2 mg intravenous, fentanyl 50-mcg intravenous. Intra-procedure sedation time 30 | | minutes. The radiation dose 23 mGray, Fluoroscopy time 1.5 minutes. Appropriate | | physiologic monitoring, maintenance of adequate conscious sedation and independent | | halfway supervision performed throughout the procedure. PROCEDURE: Informed [...] accessed using micropuncture needle and exchanged for 4-Malaysian | | micropuncture sheath. Initial fistula pressure was obtained and fistulogram obtained | | from the left cubital fossa to the right atrium. Given the multiple tandem stenosis in | | proximal and mid left cephalic vein in including in-stent restenosis, I decided to | | perform angioplasty of the venous lesions. 4-Malaysian micropuncture sheath was exchanged | | for 6-Malaysian short sheath over a 0.035, angled Glidewire. 7 mm x 4 cm balloon catheter | | was advanced over the 0.035, angled Glidewire. Balloon was positioned across stenosis | | in proximal and mid left cephalic vein and angioplasty was performed. During inflation | | of the balloon across the venous anastomosis Reflux evaluation of the arteriovenous | | anastomosis obtained. Subsequently, balloon was deflated and a final fistulogram | | obtained from the left cubital fossa to the right atrium. Final fistula pressure and | | arterial pressures were obtained. All catheters and wires then removed and hemostasis | | obtained with manual pressure. No immediate procedural complications. Patient tolerated | | the procedure well. FINDINGS1. Initial fistula pressure 80/44 mm Hg, arterial pressure | | 140/76 mm Hg, final fistula pressure 52/34 mm Hg.2. Left brachia cephalic fistulogram | | shows tandem, diffuse, more than 70% stenosis involving proximal and mid portions of | | the left cephalic vein with the in-stent restenosis. Arterial venous anastomosis, | | distal left cephalic vein, left subclavian vein and brachial cephalic veins and superior | | vena cava are widely patent.3. Successful angioplasty of the proximal and mid left | | cephalic venous stenosis with no significant residual vein stenosis. Good hemodynamic | | results. IMPRESSION:1. Successful left arm AV fistulogram and angioplasty the proximal | | and mid left cephalic venous stenosis with the good hemodynamic and anatomic results. | | | |and brachial cephalic veins and superior vena cava are widely patent. | |3. Successful angioplasty of the proximal and mid left cephalic venous stenosis with no si gnificant residual vein stenosis. Good hemodynamic results. | | | |IMPRESSION: | |1. Successful left arm AV fistulogram and angioplasty the proximal and mid left cephalic v enous stenosis with the good hemodynamic and anatomic results. | | | | | + + IR Inj Dialysis Circuit (12/01/2011 3:45 PM PDT) + + | Specimen | + + | | + + + + + | Narrative | Performed At | + + + | [facility] 12/01/2011 1:45 PM | | | HISTORY: 51 years. Male. With chronic kidney disease stage V | | | presents with decreasing KT over V. EXAMINATION Left brachia | | | cephalic fistulogram and angioplasty of the multiple tandem stenosis | | | in left cephalic vein using 7 mm x 4 cm balloon catheter. | | | MEDICATIONS: Isovue-200 40 cc, Heparin 4800 units intravenous, | | | Versed 2 mg intravenous, fentanyl 50-mcg intravenous. | | | Intra-procedure sedation time 30 minutes. The radiation dose 23 | | | mGray, Fluoroscopy time 1.5 minutes. Appropriate physiologic | | | monitoring, maintenance of adequate conscious sedation and | | | independent halfway supervision performed throughout the | | | [...] needle and | | | exchanged for 4-Malaysian micropuncture sheath. Initial fistula | | | pressure was obtained and fistulogram obtained from the left cubital | | | fossa to the right atrium. Given the multiple tandem stenosis in | | | proximal and mid left cephalic vein in including in-stent restenosis, | | | I decided to perform angioplasty of the venous lesions. 4-Malaysian | | | micropuncture sheath was exchanged for 6-Malaysian short sheath over a | | | 0.035, angled Glidewire. 7 mm x 4 cm balloon catheter was advanced | | | over the 0.035, angled Glidewire. Balloon was positioned across | | | stenosis in proximal and mid left cephalic vein and angioplasty was | | | performed. During inflation of [...] removed and hemostasis obtained with manual pressure. | | | No immediate procedural complications. Patient tolerated the | | | procedure well. FINDINGS 1. Initial fistula pressure 80/44 mm | | | Hg, arterial pressure 140/76 mm Hg, final fistula pressure 52/34 mm | | | Hg. 2. Left brachia cephalic fistulogram shows tandem, diffuse, | | | more than 70% stenosis involving proximal and mid portions of the left | | | cephalic vein with the in-stent restenosis. Arterial venous | | | anastomosis, distal left cephalic vein, left subclavian vein and | | | brachial cephalic veins and superior vena cava are widely patent. 3. | | | Successful angioplasty of the proximal and mid left cephalic venous | | | stenosis with no significant residual vein stenosis. Good | | | hemodynamic results. IMPRESSION: 1. Successful left arm AV | | | fistulogram and angioplasty the proximal and mid left cephalic venous | | | stenosis with the good hemodynamic and anatomic results. | | | | | + + + + + | Procedure Note | + + | Abhishek Rad Conversion - 01/05/2019 9:02 AM PDT [facility] | | FISTULAGRAM12/01/2011 1:45 PM HISTORY:51 years. Male. With chronic kidney disease stage | | V presents with decreasing KT over V. EXAMINATION Left brachia cephalic fistulogram | | and angioplasty of the multiple tandem stenosis in left cephalic vein using 7 mm x 4 cm | | balloon catheter. MEDICATIONS: Isovue-200 40 cc, Heparin 4800 units intravenous, Versed | | 2 mg intravenous, fentanyl 50-mcg intravenous. Intra-procedure sedation time 30 | | minutes. The radiation dose 23 mGray, Fluoroscopy time 1.5 minutes. Appropriate | | physiologic monitoring, maintenance of adequate conscious sedation and independent | | halfway supervision performed throughout the procedure. PROCEDURE: Informed [...] accessed using micropuncture needle and exchanged for 4-Malaysian | | micropuncture sheath. Initial fistula pressure was obtained and fistulogram obtained | | from the left cubital fossa to the right atrium. Given the multiple tandem stenosis in | | proximal and mid left cephalic vein in including in-stent restenosis, I decided to | | perform angioplasty of the venous lesions. 4-Malaysian micropuncture sheath was exchanged | | for 6-Malaysian short sheath over a 0.035, angled Glidewire. 7 mm x 4 cm balloon catheter | | was advanced over the 0.035, angled Glidewire. Balloon was positioned across stenosis | | in proximal and mid left cephalic vein and angioplasty was performed. During inflation | | of the balloon across the venous anastomosis Reflux evaluation of the arteriovenous | | anastomosis obtained. Subsequently, balloon was deflated and a final fistulogram | | obtained from the left cubital fossa to the right atrium. Final fistula pressure and | | arterial pressures were obtained. All catheters and wires then removed and hemostasis | | obtained with manual pressure. No immediate procedural complications. Patient tolerated | | the procedure well. FINDINGS1. Initial fistula pressure 80/44 mm Hg, arterial pressure | | 140/76 mm Hg, final fistula pressure 52/34 mm Hg.2. Left brachia cephalic fistulogram | | shows tandem, diffuse, more than 70% stenosis involving proximal and mid portions of | | the left cephalic vein with the in-stent restenosis. Arterial venous anastomosis, | | distal left cephalic vein, left subclavian vein and brachial cephalic veins and superior | | vena cava are widely patent.3. Successful angioplasty of the proximal and mid left | | cephalic venous stenosis with no significant residual vein stenosis. Good hemodynamic | | results. IMPRESSION:1. Successful left arm AV fistulogram and angioplasty the proximal | | and mid left cephalic venous stenosis with the good hemodynamic and anatomic results. | | | |and brachial cephalic veins and superior vena cava are widely patent. | |3. Successful angioplasty of the proximal and mid left cephalic venous stenosis with no si gnificant residual vein stenosis. Good hemodynamic results. | | | |IMPRESSION: | |1. Successful left arm AV fistulogram and angioplasty the proximal and mid left cephalic v enous stenosis with the good hemodynamic and anatomic results. | | | | | + + documented in this encounter Visit Diagnoses + + | Diagnosis | + + | ESRD (end stage renal disease) (HCC) End stage renal disease | + + documented in this encounter"
--- OUTSIDE RECORDS SUMMARY | ~2019-05-09 | XMS | Encounter Summary ---
Demographics + + + | Address | [address] | | | [place] [address] | + + + | Home Phone | | + + + | Preferred Language | Unknown | + + + | Marital Status | Unknown | + + + | Muslim Affiliation | Unknown | + + + | Race | Unknown | + + + | Ethnic Group | Unknown | + + + Author + + + | Author | [facility] | | | and [place] | + + + | Organization | [facility] | | | and [...] Team Providers + +------+ + | Care Couture Dressmaker Name | Role | Phone | + +------+ + PCP | Unavailable | + +------+ + Encounter Details +--------+ + + + + | Date | Type | Department | Care Team | Description | +--------+ + + + + | 07/13/ | Orders Only | [facility] | Conversion | | | 2018 | | [facility]PHR[facility]Y [place] | Transaction, | | | | | [address] | Provider Unknown | | | | | [address] [place], [place] | | | | | | [address] | (Fax) | | | | | [phone] | | | +--------+ + + + [...] 2019 | Visit | | [address] [facility] | | | | | | [address] [place], [place] | | | | | | [address] | | | | | | | | +--------+---------+ + + + documented as of this encounter Procedures + +--------+ + + + | Procedure Name | Priori | Date/Time | Associated Diagnosis | Comments | | | ty | | | | + +--------+ + + + | EXTERNAL LAB: | Routin | 07/13/2018 | | Results for this | | TACROLIMUS LEVEL, | e | 10:36 AM | | procedure are in the | | LC-MS/MS | | PST | | results section. | + +--------+ + + + | EXTERNAL LAB: CBC | Routin | 07/13/2018 | | Results for this | | | e | 10:36 AM | | procedure are in the | | | | PST | | results section. | + +--------+ + + + | URINALYSIS, | Routin | 07/13/2018 | | Results for this | | MICROSCOPIC ONLY | e | 10:36 AM | | procedure are in the | | | | PST | | results section. | + +--------+ + + + | CULTURE, URINE | Routin | 07/13/2018 | | Results for this | | | e | 10:36 AM | | procedure are in the | | | | PST | | results section. | + +--------+ + + + | MAGNESIUM | Routin | 07/13/2018 | | Results for this | | | e | 10:36 AM | | procedure are in the | | | | PST | | results section. | + +--------+ + + + | RENAL FUNCTION PANEL | Routin | 07/13/2018 | | Results for this | | | e | 10:36 AM | | procedure are in the | | | | PST | | results section. | + +--------+ + + + documented in this encounter Results Culture, Urine (07/13/2018 10:36 AM PST) + + | Specimen | [...] | + +---------+ + + External Lab: Tacrolimus Level, LC-MS/MS (07/13/2018 10:36 AM PST) + +-------+ + + + | Component | Value | Ref Range | Performed | Pathologist | | | | | At | Signature | + +-------+ + + + | Tacrolimus | 7.0 | | EXTERNAL | | | Level [...] + +---------+ + + Urinalysis, Microscopic Only (07/13/2018 10:36 AM PST) + + + + + [...] + + + + | Specific | 1.017 | 1.005 - 1.030 | EXTERNAL | | | [place] | | | LAB | | + [...] + + + + | Protein, | TraceComment: 300 | | EXTERNAL | | | Urine [...] + +---------+ + + External Lab: CBC (07/13/2018 10:36 AM PST) + + + + + + | Component | Value | Ref Range | Performed | Pathologist | | | | | At | Signature | + + + + + + | WBC | 2.3 (A) | 4.5 - 11.0 10 | EXTERNAL | | | | | | LAB | | + + + + + + | RED CELL | 4.61 | 4.3 - 5.7 10 | EXTERNAL | | | COUNT | | | LAB | | + + + + + + | Hgb | 12.7 (A) | 13.5 - 18.0 | EXTERNAL | | | | | g/dL | LAB | | + + + + + + | Hematocrit, | 40.0 (A) | 41 - 50 % | EXTERNAL | | | POC | | | LAB | | + + + + + + | MCV | 86.7 | 81 - 99 fL | EXTERNAL [...] + + + + | Platelet | 154 | 140 - 440 K/ L | EXTERNAL | | | Count | | | LAB | | | Plasma | | | | | + + + + + + | RDW-CV | 15.0 [...] + + + | % Segmented | 38.6 (A) | 39 - 80 % | EXTERNAL | | | | | | LAB | | | Neutrophils | | | | | + + + + + + | % | 43.8 | 24 - 44 % | EXTERNAL | | | Lymphocytes | | | LAB | | + + + + + + | % Monocytes | 15.8 (A) | 0 - 12 % | EXTERNAL | | | | | | LAB | | + + + + + + | % | 1.5 | 0 - 6 % | EXTERNAL | | | Eosinophils | | | LAB | | + + + + + + | % Basophils | 0.3 | 0 - 2 % | EXTERNAL [...] | | + +---------+ + + Magnesium (07/13/2018 10:36 AM PST) + +---------+ + + + | Component | Value | Ref Range | Performed | Pathologist | | | | | At | Signature | + +---------+ + + + | Magnesium | 1.1 (A) | 1.7 - 2.5 mg/dL | [...] + +---------+ + + Renal Function Panel (07/13/2018 10:36 AM PST) + + + + + + | Component | Value | Ref Range | Performed | Pathologist | | | | | At | Signature | + + + + + + | Glucose, | 130 (A) | 70 - 100 mg/dL | EXTERNAL | | | Fasting | | | LAB | | + + + + + + | BUN | 27 (A) | 6 - 23 mg/dL | EXTERNAL | | | | | | LAB | | + + + + + + | Creatinine | 1.38 (A) | 0.70 - 1.33 | EXTERNAL | | | | | mg/dL | LAB | | + + + + + + | PHOSPHORUS | 3.9 | 2.5 - 5.0 mg/dL | EXTERNAL [...] + + + | Anion Gap | 16.4 | 7 - 21 mmol/L | EXTERNAL | | | | | | LAB | | + + + + + + | eGFR if not | | | EXTERNAL | | | | | | LAB | | | [facility] | | | | | + + + + + + | Phosphorus, | | | EXTERNAL | | | Inorganic | | | LAB | | + + + + + + | BUN/Creatin | 16.1 | 6.0 - 28.6 | EXTERNAL | | | ine Ratio | | | LAB | | + + + + + + | Calcium | 8.5 | 8.5 - 10.3 | EXTERNAL | [...]
--- OUTSIDE RECORDS SUMMARY | ~2019-05-09 | XMS | Encounter Summary ---
Demographics + + + | Address | [address] | | | [place] [address] | + + + | Home Phone | | + + + | Preferred Language | Unknown | + + + | Marital Status | Unknown | + + + | Rastafarian Affiliation | Unknown | + + + | Race | Unknown | + + + | Ethnic Group | Unknown | + + + Author + + + | Author | [facility] | | | and [place] | + + + | Organization | [facility] | | [...] Team Providers + +------+ + | Care Button Broacher Name | Role | Phone | + +------+ + PCP | Unavailable | + +------+ + Encounter Details +--------+ + + + + | Date | Type | Department | Care Team | Description | +--------+ + + + + | 09/05/ | Hospital | [facility] | Conversion | ESRD (end stage | | 2013 | Encounter | [facility]ENTER [facility] | Transaction, | renal disease) ([facility]) | | | | [address] | Provider Unknown | | | | | [place], [place] | [phone] | | | | | [address] | | | | | | [phone] | Alexx Gutierrez MD | | | | | | [address] [place] | | | | | | [address] [place], [place] | | | | | | [id number] | | | | | | | [...] documented as of this encounter Discharge Summaries Elio Puente, Provider Unknown - 09/05/2012 4:21 PM PDTFormatting of this note m ight be different from the original. Discharge Summaries by Ruben Giraldo RN at 09/05/121620 Author: Ruben Giraldo RN Service: (none) Author Type: Registered Nurse Filed: 09/05/121621 Date of Service: 09/05/121620 Status: Signed Health Information Administrator: Ruben Giraldo RN (Registered Nurse) Remains awake, alert, oriented. No c/o pain or discomfort. No other changes in assessment. Discharge with instructions. Dressing dry and intact. Left amb. With friend. docume nted in this encounter Medications at Time of Discharge [...] 2019 | Visit | | [address] [facility] [place] | | | | | | [address] [place] | | | | | | [address] | | | | | | | | +--------+---------+ + + + documented as of this encounter Procedures + +--------+ + + + | Procedure Name | Priori | Date/Time | Associated Diagnosis | Comments | | | ty | | | | + +--------+ + + + | IR INJECTION | Routin | 09/05/2012 | | Results for this | | DIALYSIS CIRCUIT W | e | 3:57 PM | | procedure are in the | | ANGIOPLASTY | | PDT | | results section. | + +--------+ + + + | IR INJECTION | Routin | 09/05/2012 | | Results for this | | DIALYSIS CIRCUIT | e | 3:57 PM | | procedure are in the | | | | PDT | | results section. | + +--------+ + + + documented in this encounter Results IR Inj Dialysis Circuit w Angioplasty (09/05/2012 3:57 PM PDT) + + | Specimen | + + | | + + + + + | Narrative | Performed At | + + + | [facility] 09/03/2012 12:00 AM | | | HISTORY: 52 years. Male. With chronic kidney disease stage V | | | presents with decreasing KT over V. EXAMINATION Left brachia | | | cephalic fistulogram and angioplasty of the in-stent restenosis in | | | left cephalic vein using 7 mm x 4 cm balloon catheter. | | | MEDICATIONS: Isovue-200 35 cc, Heparin 4700 units intravenous, | | | Versed 2 mg intravenous, fentanyl 50-mcg intravenous. | | | Intra-procedure sedation time 20 minutes. The radiation dose 22 | | | mGray, Fluoroscopy time 1.2 minutes. Appropriate physiologic | | | monitoring, maintenance of adequate conscious sedation and | | | independent group home supervision performed throughout the | | | procedure. PROCEDURE: Informed written consent obtained from | | | the patient after explaining the procedure, risks and alternatives. | | | Patient understood the discussion and expressed a wish to proceed. | | | The appropriate side and site was labeled and initialed as an | | | independent process antecedent to the imaging and intervention, as per | | | protocol at this institution. Patient was placed supine on the | | | x-ray table. The left arm prepped in the usual sterile fashion. | | | Left arm arterial this fistula was accessed using micropuncture | | | needle and exchanged for 4-Barbadian micropuncture sheath close to left | | | cubital fossa. Initial fistula pressure was obtained and | | | fistulogram obtained from the left cubital fossa to the right atrium. | | | Given the significant, in-stent restenosis in mid left cephalic | | | vein, I decided to perform angioplasty of the venous lesion. | | | 4-Barbadian micropuncture sheath was exchanged for 6-Barbadian short | | | sheath over a 0.035, angled Glidewire. 7 mm x 4 cm balloon catheter | | | was advanced over the 0.035, angled Glidewire. Balloon was | | | positioned across stenosis in middle third of the left cephalic vein | | | and angioplasty was performed. During inflation of the balloon across | | | the venous anastomosis, reflux evaluation of the arteriovenous | | | anastomosis obtained. Subsequently, balloon was deflated and a final | | | fistulogram obtained from the left cubital fossa to the right | | | atrium. Final fistula pressure and arterial pressures were obtained. | | | All catheters and wires then removed and hemostasis obtained with | | | manual pressure. No immediate procedural complications. Patient | | | tolerated the procedure well. FINDINGS 1. Initial fistula | | | pressure 88/53 mm Hg, arterial pressure 136/81 mm Hg, final fistula | | | pressure 76/51 mm Hg. 2. Left brachio cephalic fistulogram revealed | | | more than 60% in-stent restenosis in mid left cephalic vein. Rest | | | of the draining veins, arterial anastomosis and central veins are | | | widely patent. 3. Post angioplasty fistulogram revealed no | | | significant residual anatomic stenosis. However, hemodynamic | | | response was suboptimal. IMPRESSION: 1. Successful left | | | brachiocephalic fistulogram and angioplasty of the left mid cephalic | | | venous in-stent restenosis with good anatomic results and suboptimal | | | hemodynamic response. | | + + + + + | Procedure Note | + + | Abhishek, Rad Conversion - 01/04/2019 11:57 PM [facility] | | FISTULAGRAM09/03/2012 12:00 AM HISTORY:52 years. Male. With chronic kidney disease | | stage V presents with decreasing KT over V. EXAMINATION Left brachia cephalic | | fistulogram and angioplasty of the in-stent restenosis in left cephalic vein using 7 mm | | x 4 cm balloon catheter. MEDICATIONS: Isovue-200 35 cc, Heparin 4700 units intravenous, | | Versed 2 mg intravenous, fentanyl 50-mcg intravenous. Intra-procedure sedation time 20 | | minutes. The radiation dose 22 mGray, Fluoroscopy time 1.2 minutes. Appropriate | | physiologic monitoring, maintenance of adequate conscious sedation and independent | | group home supervision performed throughout the procedure. PROCEDURE: Informed | | written consent obtained from the patient after explaining the procedure, risks and | | alternatives. Patient understood the discussion and expressed a wish to proceed.The | | appropriate side and site was labeled and initialed as an independent process antecedent | | to the imaging and intervention, as per protocol at this institution. Patient was | | placed supine on the x-ray table. The left arm prepped in the usual sterile fashion. | | Left arm arterial this fistula was accessed using micropuncture needle and exchanged for | | 4-Barbadian micropuncture sheath close to left cubital fossa. Initial fistula pressure | | was obtained and fistulogram obtained from the left cubital fossa to the right atrium. | | Given the significant, in-stent restenosis in mid left cephalic vein, I decided to | | perform angioplasty of the venous lesion. 4-Barbadian micropuncture sheath was exchanged | | for 6-Barbadian short sheath over a 0.035, angled Glidewire. 7 mm x 4 cm balloon catheter | | was advanced over the 0.035, angled Glidewire. Balloon was positioned across stenosis | | in middle third of the left cephalic vein and angioplasty was performed. During | | inflation of the balloon across the venous anastomosis, reflux evaluation of the | | arteriovenous anastomosis obtained. Subsequently, balloon was deflated and a final | | fistulogram obtained from the left cubital fossa to the right atrium. Final fistula | | pressure and arterial pressures were obtained. All catheters and wires then removed and | | hemostasis obtained with manual pressure. No immediate procedural complications. | | Patient tolerated the procedure well. FINDINGS1. Initial fistula pressure 88/53 mm Hg, | | arterial pressure 136/81 mm Hg, final fistula pressure 76/51 mm Hg.2. Left brachio | | cephalic fistulogram revealed more than 60% in-stent restenosis in mid left cephalic | | vein. Rest of the draining veins, arterial anastomosis and central veins are widely | | patent.3. Post angioplasty fistulogram revealed no significant residual anatomic | | stenosis. However, hemodynamic response was suboptimal. IMPRESSION:1. Successful left | | brachiocephalic fistulogram and angioplasty of the left mid cephalic venous in-stent | | restenosis with good anatomic results and suboptimal hemodynamic response. | | | | | |IMPRESSION: | |1. Successful left brachiocephalic fistulogram and angioplasty of the left mid cephalic ve nous in-stent restenosis with good anatomic results and suboptimal hemodynamic response. | | | | | + + IR Inj Dialysis Circuit (09/05/2012 3:57 PM PDT) + + | Specimen | + + | | + + + + + | Narrative | Performed At | + + + | [facility] 09/03/2012 12:00 AM | | | HISTORY: 52 years. Male. With chronic kidney disease stage V | | | presents with decreasing KT over V. EXAMINATION Left brachia | | | cephalic fistulogram and angioplasty of the in-stent restenosis in | | | left cephalic vein using 7 mm x 4 cm balloon catheter. | | | MEDICATIONS: Isovue-200 35 cc, Heparin 4700 units intravenous, | | | Versed 2 mg intravenous, fentanyl 50-mcg intravenous. | | | Intra-procedure sedation time 20 minutes. The radiation dose 22 | | | mGray, Fluoroscopy time 1.2 minutes. Appropriate physiologic | | | monitoring, maintenance of adequate conscious sedation and | | | independent group home supervision performed throughout the | | | procedure. PROCEDURE: Informed written consent obtained from | | | the patient after explaining the procedure, risks and alternatives. | | | Patient understood the discussion and expressed a wish to proceed. | | | The appropriate side and site was labeled and initialed as an | | | independent process antecedent to the imaging and intervention, as per | | | protocol at this institution. Patient was placed supine on the | | | x-ray table. The left arm prepped in the usual sterile fashion. | | | Left arm arterial this fistula was accessed using micropuncture | | | needle and exchanged for 4-Barbadian micropuncture sheath close to left | | | cubital fossa. Initial fistula pressure was obtained and | | | fistulogram obtained from the left cubital fossa to the right atrium. | | | Given the significant, in-stent restenosis in mid left cephalic | | | vein, I decided to perform angioplasty of the venous lesion. | | | 4-Barbadian micropuncture sheath was exchanged for 6-Barbadian short | | | sheath over a 0.035, angled Glidewire. 7 mm x 4 cm balloon catheter | | | was advanced over the 0.035, angled Glidewire. Balloon was | | | positioned across stenosis in middle third of the left cephalic vein | | | and angioplasty was performed. During inflation of the balloon across | | | the venous anastomosis, reflux evaluation of the arteriovenous | | | anastomosis obtained. Subsequently, balloon was deflated and a final | | | fistulogram obtained from the left cubital fossa to the right | | | atrium. Final fistula pressure and arterial pressures were obtained. | | | All catheters and wires then removed and hemostasis obtained with | | | manual pressure. No immediate procedural complications. Patient | | | tolerated the procedure well. FINDINGS 1. Initial fistula | | | pressure 88/53 mm Hg, arterial pressure 136/81 mm Hg, final fistula | | | pressure 76/51 mm Hg. 2. Left brachio cephalic fistulogram revealed | | | more than 60% in-stent restenosis in mid left cephalic vein. Rest | | | of the draining veins, arterial anastomosis and central veins are | | | widely patent. 3. Post angioplasty fistulogram revealed no | | | significant residual anatomic stenosis. However, hemodynamic | | | response was suboptimal. IMPRESSION: 1. Successful left | | | brachiocephalic fistulogram and angioplasty of the left mid cephalic | | | venous in-stent restenosis with good anatomic results and suboptimal | | | hemodynamic response. | | + + + + + | Procedure Note | + + | Abhishek, Manoj Conversion - 01/04/2019 11:57 PM [facility] | | FISTULAGRAM09/03/2012 12:00 AM HISTORY:52 years. Male. With chronic kidney disease | | stage V presents with decreasing KT over V. EXAMINATION Left brachia cephalic | | fistulogram and angioplasty of the in-stent restenosis in left cephalic vein using 7 mm | | x 4 cm balloon catheter. MEDICATIONS: Isovue-200 35 cc, Heparin 4700 units intravenous, | | Versed 2 mg intravenous, fentanyl 50-mcg intravenous. Intra-procedure sedation time 20 | | minutes. The radiation dose 22 mGray, Fluoroscopy time 1.2 minutes. Appropriate | | physiologic monitoring, maintenance of adequate conscious sedation and independent | | group home supervision performed throughout the procedure. PROCEDURE: Informed | | written consent obtained from the patient after explaining the procedure, risks and | | alternatives. Patient understood the discussion and expressed a wish to proceed.The | | appropriate side and site was labeled and initialed as an independent process antecedent | | to the imaging and intervention, as per protocol at this institution. Patient was | | placed supine on the x-ray table. The left arm prepped in the usual sterile fashion. | | Left arm arterial this fistula was accessed using micropuncture needle and exchanged for | | 4-Barbadian micropuncture sheath close to left cubital fossa. Initial fistula pressure | | was obtained and fistulogram obtained from the left cubital fossa to the right atrium. | | Given the significant, in-stent restenosis in mid left cephalic vein, I decided to | | perform angioplasty of the venous lesion. 4-Barbadian micropuncture sheath was exchanged | | for 6-Barbadian short sheath over a 0.035, angled Glidewire. 7 mm x 4 cm balloon catheter | | was advanced over the 0.035, angled Glidewire. Balloon was positioned across stenosis | | in middle third of the left cephalic vein and angioplasty was performed. During | | inflation of the balloon across the venous anastomosis, reflux evaluation of the | | arteriovenous anastomosis obtained. Subsequently, balloon was deflated and a final | | fistulogram obtained from the left cubital fossa to the right atrium. Final fistula | | pressure and arterial pressures were obtained. All catheters and wires then removed and | | hemostasis obtained with manual pressure. No immediate procedural complications. | | Patient tolerated the procedure well. FINDINGS1. Initial fistula pressure 88/53 mm Hg, | | arterial pressure 136/81 mm Hg, final fistula pressure 76/51 mm Hg.2. Left brachio | | cephalic fistulogram revealed more than 60% in-stent restenosis in mid left cephalic | | vein. Rest of the draining veins, arterial anastomosis and central veins are widely | | patent.3. Post angioplasty fistulogram revealed no significant residual anatomic | | stenosis. However, hemodynamic response was suboptimal. IMPRESSION:1. Successful left | | brachiocephalic fistulogram and angioplasty of the left mid cephalic venous in-stent | | restenosis with good anatomic results and suboptimal hemodynamic response. | | | | | |IMPRESSION: | |1. Successful left brachiocephalic fistulogram and angioplasty of the left mid cephalic ve nous in-stent restenosis with good anatomic results and suboptimal hemodynamic response. | | | | | + + documented in this encounter Visit Diagnoses + + | Diagnosis | + + | ESRD (end stage renal disease) (HCC) End stage renal disease | + + documented in this encounter"
--- OUTSIDE RECORDS SUMMARY | ~2019-05-09 | XMS | Encounter Summary ---
Demographics + + + | Address | [address] | | | [place] [address] | + + + | Home Phone | | + + + | Preferred Language | Unknown | + + + | Marital Status | Unknown | + + + | Taoism Affiliation | Unknown | + + + [...] Providers + +------+ + | Care Manager Of Clinical Name | Role | Phone | + +------+ + | Oziel Michael MD | PCP | | + +------+ + Encounter Details +--------+ + + + + | Date | Type | Department | Care Team | Description | +--------+ + + + + | 10/16/ | Orders Only | [facility] | Alexx Gutierrez MD | | | 2019 | | NEPRHOLOGY JOES | [address] | | | | | [address] | [address] [place], [place] | | | | | [address] [place], [place] | [address] | | | | | [address] | | | | | | [phone] | | | +--------+ + + + [...] 2020 | Visit | | [address] [facility] | | | | | | [address] [place] | | | | | | [address] | | | | | | | | +--------+---------+ + + + documented as of this encounter Visit Diagnoses Not on filedocumented in this encounter"
--- OUTSIDE RECORDS SUMMARY | ~2019-05-09 | XMS | Encounter Summary ---
Demographics + + + | Address | [address] | | | [place] [address] | + + + | Home Phone | | + + + | Preferred Language | Unknown | + + + | Marital Status | Unknown | + + + | Yarsani Affiliation | Unknown | + + + | Race | Unknown | + + + | Ethnic Group | Unknown | + + + Author + + + | Author | [facility] | | | and [place] | + + + | Organization | [facility] | | [...] Team Providers + +------+ + | Care Dowel Machine Operator Name | Role | Phone | + +------+ + | Oziel Michael MD | PCP | | + +------+ + Encounter Details +--------+ + + + + | Date | Type | Department | Care Team | Description | +--------+ + + + + | 11/06/ | Orders Only | [facility] | Alexx Gutierrez MD | | | 2019 | | NEPRHOLOGY [facility] | [address] | | | | | [address] | [address] [place], [place] | | | | | [address] [place], [place] | [address] | | | | | [address] | | | | | | [phone] | | | +--------+ + + + [...] 2020 | Visit | | [address] [facility] | | | | | | [address] [place] | | | | | | [address] | | | | | | | | +--------+---------+ + + + documented as of this encounter Visit Diagnoses Not on filedocumented in this encounter"
--- OUTSIDE RECORDS SUMMARY | ~2019-05-09 | XMS | Encounter Summary ---
Demographics + + + | Address | [address] | | | [place] [address] | + + + | Home Phone [...] Author + + + | Author | [facility] | + + + | Organization | [facility] | + + + | Address | Unknown | + + + | Phone | Unavailable | + + + Support + + +---------+ + | Name | Relationship | Address | Phone | + + +---------+ + | Olesya Lamb | ECON | Unknown | | + + +---------+ + Care Team Providers + +------+ + | Care Bunk House Worker Name | Role | Phone | + +------+ + | Oziel Michael MD | PCP | | + +------+ + Encounter Details +--------+ + + + + | Date | Type | Department | Care Team | Description | +--------+ + + + + | 08/16/ | Ancillary | LAB IMMUNOGENETIC | | | | 2013 | Orders | [facility] | | | | | | [address] | | | | | | [address] [place], | | | | | | [place] [address] | | | +--------+ + + + [...] FLOW HLA AB PRA | Routin | 08/16/2013 | | | | SCREEN I/II | e | 4:44 PM | | | | | | PDT | | | + +--------+ + + + documented in this encounter Results LIT FLOW HLA AB PRA SCREEN I/II (08/16/2013 4:44 PM PDT) + + | Specimen | + + | Blood - Blood | + + + + + + + | Performing | Address | City/State/Zipcode | Phone Number | | Organization | | | | + + + + + | [facility] - | [address] | [place] [address] | | | IMMUNOGENETICS/TRANS | [address] | | | | [facility] | | | | + + + + + documented in this encounter Visit Diagnoses Not on filedocumented in this encounter"
--- OUTSIDE RECORDS SUMMARY | ~2019-05-09 | XMS | Encounter Summary ---
Demographics + + + | Address | [address] | | | [place] [address] | + + + | Home Phone | | + + + | Preferred Language | Unknown | + + + | Marital Status | Unknown | + + + | Pentecostalism Affiliation | Unknown | + + + | Race | Unknown | + + + | Ethnic Group | Unknown | + + + Author + + + | Author | [facility] | | | and [place] | + + + | Organization | [facility] | | [...] Team Providers + +------+ + | Care Tank Inspector Name | Role | Phone | + +------+ + PCP | Unavailable | + +------+ + Encounter Details +--------+ + + + + | Date | Type | Department | Care Team | Description | +--------+ + + + + | 03/15/ | Hospital | [facility] | Conversion | ESRD (end stage | | 2012 | Encounter | CENTER CV [facility]TRA OP | Transaction, | renal disease) ([facility]) | | | | [address] | Provider Unknown | | | | | [place], [place] | [phone] | | | | | [address] | | | | | | [phone] | Ziyad Russ, | | | | | | [address] | | | | | | [place], [place] | | | | | | [address] | | | | | | | [...] Progress Notes Conversion Transaction, Provider Unknown - 03/15/2012 1:04 PM PDTFormatting of this note m ight be different from the original. Progress Notes by Kely Wilkerson at 03/15/12 8606 Author: Kely Wilkerson Service: (none) Author Type: Registered Nurse Filed: 03/15/12 8687 Date of Service: 03/15/12 1688 Status: Signed Full Time Paramedic: Kely Wilkerson Pt escorted out ambulatory with family driving pt home. av onver svitlana Transaction, Provider Unknown - 03/15/2012 12:59 PM PDT Progress Notes by Kely Wilkerson at 03/15/12 9901 Author: Kely Wilkerson Service: (none) Author Type: Registered Nurse Filed: [id number] Date of Service: 03/15/121258 Status: Signed Full Time Paramedic: Kely Wilkerson Dc instructions given pt states understanding, left arm cdi, pt denies pain, vss, pt has fa marivel to drive him home. Pt getting dressed at this time. av docume nted in this encounter Plan of Treatment +--------+---------+ + + + | Date | Type | Specialty | Care Team | Description | +--------+---------+ + + + | 05/20/ | Office | Nephrology | Alexx Gutierrez MD | | | 2019 | Visit | | [address] [facility] | | | | | | [address] [place], [place] | | | | | | [address] | | | | | | | | +--------+---------+ + + + documented as of this encounter Procedures + +--------+ + + + | Procedure Name | Priori | Date/Time | Associated Diagnosis | Comments | | | ty | | | | + +--------+ + + + | IR INJECTION | Routin | 03/15/2012 | | Results for this | | DIALYSIS CIRCUIT W | e | 11:55 AM | | procedure are in the | | ANGIOPLASTY | | PDT | | results section. | + +--------+ + + + | IR INJECTION | Routin | 03/15/2012 | | Results for this | | DIALYSIS CIRCUIT | e | 11:55 AM | | procedure are in the | | | | PDT | | results section. | + +--------+ + + + documented in this encounter Results IR Inj Dialysis Circuit w Angioplasty (03/15/2012 11:55 AM PDT) + + | Specimen | + + | | + + + + + | Narrative | Performed At | + + + | [facility] 03/15/2012 11:38 AM | | | HISTORY: 51 years. Male. With chronic kidney disease stage V | | | presents with decreasing KT over V. EXAMINATION Left brachia | | | cephalic fistulogram and angioplasty of the multiple tandem stenosis | | | in left cephalic vein using 7-mm by 4-cm balloon catheter. | | | MEDICATIONS: Isovue-200 40 cc, Heparin 4700 units intravenous, | | | Versed 1 mg intravenous, fentanyl 50-mcg intravenous. | | | Intra-procedure sedation time 50 minutes. The radiation dose 73 | | | mGray, Fluoroscopy time 2.7 minutes. Appropriate physiologic | | | monitoring, [...] needle and | | | exchanged for 4-Irish micropuncture sheath. Initial fistula | | | pressure was obtained and fistulogram obtained from the left cubital | | | fossa to the right atrium. Given the multiple stenosis in the | | | proximal and mid left cephalic vein including in-stent restenosis, I | | | decided to perform angioplasty of the venous lesions. 4-Irish | | | micropuncture sheath was exchanged for 6-Irish short sheath over a | | | 0.035, angled Glidewire. 7 mm x 4 cm balloon catheter was advanced | | | over the 0.035, angled Glidewire. Balloon was positioned across | | | stenosis in mid left cephalic vein and angioplasty was performed. | | | Subsequently, balloon was repositioned across the in-stent restenosis | | | and balloon dilatation performed. During inflation of the balloon | | | across the in-stent restenosis, Reflux evaluation of the arteriovenous | | | anastomosis obtained. Subsequently, balloon was deflated and a | | | final fistulogram obtained from the left cubital fossa to the right | | | atrium. Final fistula pressure and arterial pressures were obtained. | | | All catheters and wires then removed and hemostasis obtained with | | | manual pressure. No immediate procedural complications. Patient | | | tolerated the procedure well. FINDINGS 1. Initial fistula | | | pressure 122/68 mm Hg, arterial pressure 148/89 mm Hg, final fistula | | | pressure 72/41 mm Hg. 2. Left brachio cephalic fistulogram shows | | | significant proximal and mid left cephalic venous stenosis. Arterial | | | anastomosis is widely patent. Central veins are widely patent. 3. | | | Successful angioplasty of the proximal and mid left cephalic venous | | | stenosis including in-stent restenosis with no significant residual | | | anatomic stenosis. IMPRESSION: 1. Successful left | | | brachiocephalic fistulogram and angioplasty of the proximal left | | | cephalic venous stenosis and mid left cephalic venous in-stent | | | restenosis using 7-mm by 4-cm balloon angioplasty with good | | | hemodynamic and anatomic results. | | + + + + + | Procedure Note | + + | Abhishek, Rad Conversion - 01/05/2019 9:02 AM PDT [facility] | | [id number]/1/2012 11:38 AM HISTORY:51 years. Male. With chronic kidney disease | | stage V presents with decreasing KT over V. EXAMINATION Left brachia cephalic | | fistulogram and angioplasty of the multiple tandem stenosis in left cephalic vein using | | 7-mm by 4-cm balloon catheter. MEDICATIONS: Isovue-200 40 cc, Heparin 4700 units | | intravenous, Versed 1 mg intravenous, fentanyl 50-mcg intravenous. Intra-procedure | | sedation time 50 minutes. The radiation dose 73 mGray, Fluoroscopy time 2.7 minutes. | | Appropriate physiologic monitoring, maintenance of adequate conscious sedation and | | independent halfway supervision performed throughout the procedure. PROCEDURE: | | Informed written consent obtained from the patient after explaining the procedure, risks | | and alternatives. Patient understood the discussion and expressed a wish to | | proceed.?The appropriate side and site was labeled and initialed as an independent | | process antecedent to the imaging and intervention, as per protocol at this | | institution.? Patient was placed supine on the x-ray table. The left arm prepped in | | the usual sterile fashion. Left arm AV fistula was accessed using micropuncture needle | | and exchanged for 4-Irish micropuncture sheath. Initial fistula pressure was obtained | | and fistulogram obtained from the left cubital fossa to the right atrium. Given the | | multiple stenosis in the proximal and mid left cephalic vein including in-stent | | restenosis, I decided to perform angioplasty of the venous lesions. 4-Irish | | micropuncture sheath was exchanged for 6-Irish short sheath over a 0.035, angled | | Glidewire. 7 mm x 4 cm balloon catheter was advanced over the 0.035, angled Glidewire. | | Balloon was positioned across stenosis in mid left cephalic vein and angioplasty was | | performed. Subsequently, balloon was repositioned across the in-stent restenosis and | | balloon dilatation performed. During inflation of the balloon across the in-stent | | restenosis, Reflux evaluation of the arteriovenous anastomosis obtained. [...] well. FINDINGS1. | | Initial fistula pressure 122/68 mm Hg, arterial pressure 148/89 mm Hg, final fistula | | pressure 72/41 mm Hg.2. Left brachio cephalic fistulogram shows significant proximal | | and mid left cephalic venous stenosis. Arterial anastomosis is widely patent. Central | | veins are widely patent.3. Successful angioplasty of the proximal and mid left cephalic | | venous stenosis including in-stent restenosis with no significant residual anatomic | | stenosis. IMPRESSION:1. Successful left brachiocephalic fistulogram and angioplasty of | | the proximal left cephalic venous stenosis and mid left cephalic venous in-stent | | restenosis using 7-mm by 4-cm balloon angioplasty with good hemodynamic and anatomic | | results. | |IMPRESSION: | |1. Successful left brachiocephalic fistulogram and angioplasty of the proximal left cephal ic venous stenosis and mid left cephalic venous in-stent restenosis using 7-mm by 4-cm ballo on angioplasty with good hemodynamic and anatomic results. | | | | | + + IR Inj Dialysis Circuit (03/15/2012 11:55 AM PDT) + + | Specimen | + + | | + + + + + | Narrative | Performed At | + + + | [facility] 03/15/2012 11:38 AM | | | HISTORY: 51 years. Male. With chronic kidney disease stage V | | | presents with decreasing KT over V. EXAMINATION Left brachia | | | cephalic fistulogram and angioplasty of the multiple tandem stenosis | | | in left cephalic vein using 7-mm by 4-cm balloon catheter. | | | MEDICATIONS: Isovue-200 40 cc, Heparin 4700 units intravenous, | | | Versed 1 mg intravenous, fentanyl 50-mcg intravenous. | | | Intra-procedure sedation time 50 minutes. The radiation dose 73 | | | mGray, Fluoroscopy time 2.7 minutes. Appropriate physiologic | | | monitoring, [...] needle and | | | exchanged for 4-Irish micropuncture sheath. Initial fistula | | | pressure was obtained and fistulogram obtained from the left cubital | | | fossa to the right atrium. Given the multiple stenosis in the | | | proximal and mid left cephalic vein including in-stent restenosis, I | | | decided to perform angioplasty of the venous lesions. 4-Irish | | | micropuncture sheath was exchanged for 6-Irish short sheath over a | | | 0.035, angled Glidewire. 7 mm x 4 cm balloon catheter was advanced | | | over the 0.035, angled Glidewire. Balloon was positioned across | | | stenosis in mid left cephalic vein and angioplasty was performed. | | | Subsequently, balloon was repositioned across the in-stent restenosis | | | and balloon dilatation performed. During inflation of the balloon | | | across the in-stent restenosis, Reflux evaluation of the arteriovenous | | | anastomosis obtained. Subsequently, balloon was deflated and a | | | final fistulogram obtained from the left cubital fossa to the right | | | atrium. Final fistula pressure and arterial pressures were obtained. | | | All catheters and wires then removed and hemostasis obtained with | | | manual pressure. No immediate procedural complications. Patient | | | tolerated the procedure well. FINDINGS 1. Initial fistula | | | pressure 122/68 mm Hg, arterial pressure 148/89 mm Hg, final fistula | | | pressure 72/41 mm Hg. 2. Left brachio cephalic fistulogram shows | | | significant proximal and mid left cephalic venous stenosis. Arterial | | | anastomosis is widely patent. Central veins are widely patent. 3. | | | Successful angioplasty of the proximal and mid left cephalic venous | | | stenosis including in-stent restenosis with no significant residual | | | anatomic stenosis. IMPRESSION: 1. Successful left | | | brachiocephalic fistulogram and angioplasty of the proximal left | | | cephalic venous stenosis and mid left cephalic venous in-stent | | | restenosis using 7-mm by 4-cm balloon angioplasty with good | | | hemodynamic and anatomic results. | | + + + + + | Procedure Note | + + | Manoj Weiss Conversion - 01/05/2019 9:02 AM PDT [facility] | | [id number]/1/2012 11:38 AM HISTORY:51 years. Male. With chronic kidney disease | | stage V presents with decreasing KT over V. EXAMINATION Left brachia cephalic | | fistulogram and angioplasty of the multiple tandem stenosis in left cephalic vein using | | 7-mm by 4-cm balloon catheter. MEDICATIONS: Isovue-200 40 cc, Heparin 4700 units | | intravenous, Versed 1 mg intravenous, fentanyl 50-mcg intravenous. Intra-procedure | | sedation time 50 minutes. The radiation dose 73 mGray, Fluoroscopy time 2.7 minutes. | | Appropriate physiologic monitoring, maintenance of adequate conscious sedation and | | independent halfway supervision performed throughout the procedure. PROCEDURE: | | Informed written consent obtained from the patient after explaining the procedure, risks | | and alternatives. Patient understood the discussion and expressed a wish to | | proceed.?The appropriate side and site was labeled and initialed as an independent | | process antecedent to the imaging and intervention, as per protocol at this | | institution.? Patient was placed supine on the x-ray table. The left arm prepped in | | the usual sterile fashion. Left arm AV fistula was accessed using micropuncture needle | | and exchanged for 4-Irish micropuncture sheath. Initial fistula pressure was obtained | | and fistulogram obtained from the left cubital fossa to the right atrium. Given the | | multiple stenosis in the proximal and mid left cephalic vein including in-stent | | restenosis, I decided to perform angioplasty of the venous lesions. 4-Irish | | micropuncture sheath was exchanged for 6-Irish short sheath over a 0.035, angled | | Glidewire. 7 mm x 4 cm balloon catheter was advanced over the 0.035, angled Glidewire. | | Balloon was positioned across stenosis in mid left cephalic vein and angioplasty was | | performed. Subsequently, balloon was repositioned across the in-stent restenosis and | | balloon dilatation performed. During inflation of the balloon across the in-stent | | restenosis, Reflux evaluation of the arteriovenous anastomosis obtained. [...] well. FINDINGS1. | | Initial fistula pressure 122/68 mm Hg, arterial pressure 148/89 mm Hg, final fistula | | pressure 72/41 mm Hg.2. Left brachio cephalic fistulogram shows significant proximal | | and mid left cephalic venous stenosis. Arterial anastomosis is widely patent. Central | | veins are widely patent.3. Successful angioplasty of the proximal and mid left cephalic | | venous stenosis including in-stent restenosis with no significant residual anatomic | | stenosis. IMPRESSION:1. Successful left brachiocephalic fistulogram and angioplasty of | | the proximal left cephalic venous stenosis and mid left cephalic venous in-stent | | restenosis using 7-mm by 4-cm balloon angioplasty with good hemodynamic and anatomic | | results. | |IMPRESSION: | |1. Successful left brachiocephalic fistulogram and angioplasty of the proximal left cephal ic venous stenosis and mid left cephalic venous in-stent restenosis using 7-mm by 4-cm ballo on angioplasty with good hemodynamic and anatomic results. | | | | | + + documented in this encounter Visit Diagnoses + + | Diagnosis | + + | ESRD (end stage renal disease) (HCC) End stage renal disease | + + documented in this encounter"
--- OUTSIDE RECORDS SUMMARY | ~2019-05-09 | XMS | Encounter Summary ---
Demographics + + + | Address | [address] | | | [place] [address] | + + + | Home Phone | | + + + | Preferred Language | Unknown | + + + | Marital Status | Unknown | + + + | Jain Affiliation | Unknown | + + + [...] Phone | + + +---------+ + | Olesyacerdic Lamb | ECON | Unknown | | + + +---------+ + | Fanny Peace | ECON | Unknown | | + + +---------+ + Care Team Providers + +------+ + | Care Nut Steamer Name | Role | Phone | + +------+ + | Oziel Michael MD | PCP | | + +------+ + Encounter Details +--------+ + + + + | Date | Type | Department | Care Team | Description | +--------+ + + + + | 07/25/ | Orders Only | [facility] | Conversion | | | 2016 | | NEPHROLOGY [place] | Transaction, | | | | | [address] | Provider Unknown | | | | | [address] [place], [place] | | | | | | [address] | (Fax) | | | | | [phone] | | | +--------+ + + + [...] 2019 | Visit | | [address] [facility] | | | | | | [address] [place], [place] | | | | | | [address] | | | | | | | [...] - 1.030 | EXTERNAL | | | [place] | | | LAB | | + [...] | | | LAB | | | [facility] | | | | | + [...]
--- OUTSIDE RECORDS SUMMARY | ~2019-05-09 | XMS | Encounter Summary ---
Demographics + + + | Address | [address] | | | [place] [address] | + + + | Home Phone | | + + + | Preferred Language | Unknown | + + + | Marital Status | Single | + + + | Mosque Affiliation | Unknown | + + + | Race | Black or | + + + | Ethnic Group | Not or | + + + Author + + + | Author | [facility] | + + + | Organization | [facility] | + + + | Address | Unknown | + + + | Phone | Unavailable | + + + Support + + +---------+ + | Name | Relationship | Address | Phone | + + +---------+ + | Olesya Lamb | ECON | Unknown | | + + +---------+ + Care Team Providers + +------+ + | Care Fur Blowing Machine Attendant Name | Role | Phone | + +------+ + | Oziel Michael MD | PCP | | + +------+ + Encounter Details +--------+ + + + + | Date | Type | Department | Care Team | Description | +--------+ + + + + | 08/24/ | Lab | LAB [facility]UN[facility]ENETIC | | | | 2015 | Requisition | [facility] | | | | | | [address] | | | | | | [address] [place], | | | | | | [place] [address] | | | +--------+ + + + [...] FLOW HLA AB PRA | Routin | 08/25/2015 | | | | SCREEN I/II | e | 12:08 PM | | | | | | PDT | | | + +--------+ + + + documented in this encounter Results LIT FLOW HLA AB PRA SCREEN I/II (08/25/2015 12:08 PM PDT) + + | Specimen | + + | Blood - Blood | | (substance) | + + + + + + + | Performing | Address | City/State/Zipcode | Phone Number | | Organization | | | | + + + + + | [facility] - | [address] | [place] [address] | | | IMMUNOGENETICS/TRANS | [address] | | | | [facility] | | | | + + + + + documented in this encounter Visit Diagnoses Not on filedocumented in this encounter"
--- OUTSIDE RECORDS SUMMARY | ~2019-05-09 | XMS | Encounter Summary ---
Demographics + + + | Address | [address] | | | [place] [address] | + + + | Home Phone | | + + + | Preferred Language | Unknown | + + + | Marital Status | Unknown | + + + | [employer] Affiliation | Unknown | + + + | Race | Unknown | + + + | Ethnic Group | Unknown | + + + Author + + + | Author | [facility] | | | and [place] | + + + | Organization | [facility] | | | [...] Team Providers + +------+ + | Care Pickle Pumper Name | Role | Phone | + +------+ + PCP | Unavailable | + +------+ + Encounter Details +--------+ + + + + | Date | Type | Department | Care Team | Description | +--------+ + + + + | 08/22/ | Hospital | [facility] | Conversion | ESRD (end stage | | 2012 | Encounter | CENTER CV INTRA OP | Transaction, | renal disease) ([facility]) | | | | [address] | Provider Unknown | | | | | [place], [place] | [phone] | | | | | [address] | | | | | | [phone] | Shashi Bruner MD | | | | | | [address] | | | | | | [place] [address] | | | | | | [phone] | | | | | | | [...] documented as of this encounter Discharge Summaries Shashi Bruner MD - 08/23/2011 3:00 PM PDTFormatting of this note might be different fro m the original. Discharge Summaries by Shashi Bruner at 08/23/11 1500 Author: Shashi Bruner Service: Interventional Radiology Author Type: Physician Filed: 08/23/11 2459 Date of Service: 08/23/111499 Status: Signed Office Assistant Receptionist: Shashi Bruner (Physician) [facility] Service: Interventional Radiology Post-Procedure Discharge Note DISCHARGE DIAGNOSES: ESRD Procedures: LUE AV Fistulogram, Balloon angioplasty and stenting of a long segment severe narrowing in proximal outflowing cephalic vein, Coil embolization of a prominent proximal venous collater al. This patient was transferred to the recovery area post-procedurally and has experienced no difficulties at the time of my assessment. The patient is anticipated to continue to meet d ischarge criteria per protocol as assessed by nursing and may be discharged at that time wit h designated caregiver. Vital signs: BP 172/90 | Pulse 82 | Temp(Src) 97.9 F (36.6 C) (Tympanic) | Resp 16 | Ht 1.727 m (5' 8") | Wt 95.255 kg (210 lb) | BMI 31.93 kg/m2 | SpO2 98% Disposition: Home Condition: Stable Code Status: No Order Follow up: Alexx Gutierrez MD [address], [facility] [address] [facility] [address] Discharge Medications: Discharge Medication List as of 08/23/2011 2:51 PM CONTINUE these medications which have NOT CHANGED Details amlodipine (NORVASC) 10 MG tablet Take 10 mg by mouth daily. , Until Discontinued, Histori sol Med !! B Wukhjpx-M-Ycyhu Acid (STERLING-BRITT PO) Take by mouth daily. , Until Discontinued, Histo rical Med Cholecalciferol (VITAMIN D-3 PO) Take 1 tablet by mouth. , Until Discontinued, Historical Med furosemide (LASIX) 80 MG tablet Take 80 mg by mouth daily. , Until Discontinued, Historica l Med lisinopril (PRINIVIL,ZESTRIL) 20 MG tablet Take 20 mg by mouth daily. , Until Discontinued , Historical Med sevelamer (RENVELA) 800 MG tablet Take 800 mg by mouth 3 (three) times daily with meals. , Until Discontinued, Historical Med !! B Wlmnyut-M-Cndzb Acid (STERLING-BRITT) TABS Take 1 tablet by mouth daily., Starting 2, Until Discontinued, Normal !! vitamin B yvfnjnl-X-vrrgo acid (SUPER B VITAMINS) 0.8 MG TABS Take 1 tablet by mouth deanne ly with breakfast., Starting 08/05/2011, Until Discontinued, Normal !! - Potential duplicate medications found. Please discuss with provider. Shashi Bruner 08/23/2011 10:42 PM documente d in this encounter Medications at Time of [...] documented as of this encounter Progress Notes Shashi Bruner MD - 08/23/2011 1:00 PM PDTFormatting of this note might be different fro m the original. Partial Note by Shashi Bruner at 08/23/11 1300 Author: Shashi Bruner Service: Interventional Radiology Author Type: Physician Filed: 08/23/11 2239 Date of Service: 08/23/11 1300 Status: Signed Office Assistant Receptionist: Shashi Bruner (Physician) [facility] Service: Radiology Sedation Note See separate procedure note as indicated. Sedation type: Moderate Indications for procedural sedation: Fistulogram Last meal: Before midnight Moderate Sedation Presedation Assessment completed immediately prior to procedure. ASA Classification: ASA 2: Patient with a mild systemic disease Mallampati Classification: I: Full visibility of tonsils, uvula and soft palate Preparation: Plan explained to: patient Consent signed: yes Oximetry: yes Capnometry: No IV access: yes Suction: yes monitoring engineer: Yes Sedation agent(s) used: Versed, Fentanyl I personally supervised: sedation and procedure(s). Total sedation time: See nurse's notes for total time. Appropriate side/site marking was completed by myself as part of the patient consent proces s, prior to the patient being positioned for procedure. Shashi Bruner 08/23/2011 [email or web address] bower in this encounter Plan of Treatment +--------+---------+ + + + | Date | Type | Specialty | Care Team | Description | +--------+---------+ + + + | 05/20/ | Office | Nephrology | Alexx Gutierrez MD | | | 2019 | Visit | | [address] [facility] | | | | | | [address] [place], [place] | | | | | | [address] | | | | | | | | +--------+---------+ + + + documented as of this encounter Procedures + +--------+ + + + | Procedure Name | Priori | Date/Time | Associated Diagnosis | Comments | | | ty | | | | + +--------+ + + + | IR EMBOLIZATION | Routin | 08/23/2011 | | Results for this | | VASCULAR ARTERIAL | e | 2:54 PM | | procedure are in the | | | | PDT | | results section. | + +--------+ + + + | IR INJECTION | Routin | 08/23/2011 | | Results for this | | DIALYSIS CIRCUIT W | e | 2:54 PM | | procedure are in the | | ANGIOPLASTY | | PDT | | results section. | + +--------+ + + + | IR INJECTION | Routin | 08/23/2011 | | Results for this | | DIALYSIS CIRCUIT | e | 2:54 PM | | procedure are in the | | | | PDT | | results section. | + +--------+ + + + | IR | Routin | 08/23/2011 | | Results for this | | ANGIOPLASTY/ATHERECT | e | 2:54 PM | | procedure are in the | | VERNON/STENT | | PDT | | results section. | + +--------+ + + + documented in this encounter Results IR Embolization Vascular Arterial (08/23/2011 2:54 PM PDT) + + | Specimen | + + | | + + + + + | Narrative | Performed At | + + + | PROCEDURE/EXAMINATION: Left upper extremity AV fistulogram, coil | | | embolization of the proximal venous collateral, balloon angioplasty of | | | the long segment severe stenoses in the outflowing cephalic vein, | | | stenting of the outflowing cephalic vein. HISTORY/INDICATION: | | | 51-year-old male with end-stage renal disease, who has been dialyzed | | | through a left upper extremity brachial cephalic fistula. Loss of | | | thrill and increased arterial pressures noted on recent dialysis | | | sessions. Angiography in further intervention is planned. | | | COMPARISON: May 24, 2011 MEDICATIONS: Isovue-250 60 cc, | | | Heparin 5000 units intravenous, Versed 2 mg intravenous, fentanyl | | | 100-mcg intravenous. Intra-procedure sedation time 56 minutes. The | | | radiation dose 58 mGray, Fluoroscopy time 14.8 minutes. | | | Appropriate physiologic monitoring, maintenance of adequate | | | conscious sedation, and independent retirement supervision was | | | performed throughout the procedure. PROCEDURE: An informed | | | written consent had been obtained from the patient prior to the | | | procedure. The site of intervention was marked and a time out was | | | performed. Patient was placed supine on the interventional table | | | and his left upper extremity was prepped and draped in the usual | | | sterile fashion. After giving local anesthesia, the fistula was | | | accessed directed centrally with the standard 4-Ivorian micropuncture | | | set. Contrast was then injected through the micro-dilator and a | | | digital imaging over the left arm and upper chest were performed. | | | Initial fistula pressure was 138/73 mm Hg. Arterial pressure was | | | 166/84 mm Hg. A reflux run of the arterial anastomosis was also | | | performed. Imaging revealed a long segment severe narrowing of the | | | outflow cephalic vein at the mid humerus level. Otherwise, the | | | arterial anastomosis and the central venous outflow was widely patent. | | | A prominent proximal venous collateral was also seen stealing | | | blood away from the fistula. Access was then secured with a | | | 5-Ivorian sheath. Access was obtained into the venous collateral with | | | the aid of a Bentson wire and a Kumpe catheter. The collateral was | | | embolized with multiple 5-3 mm tornado coils. Complete occlusion of | | | this venous collateral was achieved. Next, the area of long | | | segment stenosis was traversed with a 0.014 inch wire. The mid | | | cephalic vein was subsequently angioplastied using a 8 mm x 4 cm | | | Gus angioplasty balloon. However, post angioplasty angiogram | | | revealed a severe flow limiting dissection and contrast | | | extravasation in the mid cephalic vein, likely due to the drastic | | | mismatch between the caliber of the severely narrowed cephalic vein | | | and the angioplasty balloon. Therefore, a 7-mm x 8-cm self-expanding | | | absolute pro bare metallic stent was deployed across the area of | | | dissection and contrast extravasation. Follow-up angiogram | | | revealed excellent angiographic results with no residual stenosis and | | | brisk inflow and outflow from the fistula. The final fistula | | | pressure was 101/52 mm Hg. Wires and catheters were removed. Sheath | | | was removed as well and hemostasis achieved with a 3-0 pursestring | | | stitch. A sterile dressing was applied. A great thrill was palpated | | | over the fistula at the end of the procedure. There were no | | | immediate procedural complications. Patient tolerated the procedure | | | well. FINDINGS: 1. Initial fistulogram showed a long segment | | | severe narrowing in the mid cephalic vein. Also, a prominent | | | proximal venous collateral which was also seen on the previous study | | | was visualized. 2. Post angioplasty angiogram revealed a severe | | | flow limiting dissection and contrast extravasation in the mid | | | cephalic vein, which was successfully treated with a 7 mm x 8 cm | | | self-expanding metallic stent, with excellent angiographic results. | | | 3. A prominent proximal venous collateral was successfully coil | | | embolized. IMPRESSION: 1. Successful percutaneous balloon | | | angioplasty and stenting of a long segment severe narrowing in the mid | | | outflowing cephalic vein. 2. Successful coil embolization of a | | | prominent proximal venous collateral. 3. Excellent final | | | hemodynamic and angiographic results were achieved. Electronically | | | signed by Shashi Bruner DO on 08/23/2011 7:30 PM | | + + + + + | Procedure Note | + + | Manoj Weiss Conversion - 01/05/2019 9:03 AM PDT PROCEDURE/EXAMINATION: Left upper | | extremity AV fistulogram, coil embolization of the proximal venous collateral, balloon | | angioplasty of the long segment severe stenoses in the outflowing cephalic vein, | | stenting of the outflowing cephalic vein. HISTORY/INDICATION: 51-year-old male with | | end-stage renal disease, who has been dialyzed through a left upper extremity brachial | | cephalic fistula. Loss of thrill and increased arterial pressures noted on recent | | dialysis sessions. Angiography in further intervention is planned. COMPARISON: May | | 2011 MEDICATIONS: Isovue-250 60 cc, Heparin 5000 units intravenous, Versed 2 mg | | intravenous, fentanyl 100-mcg intravenous. Intra-procedure sedation time 56 minutes. | | The radiation dose 58 mGray, Fluoroscopy time 14.8 minutes. Appropriate physiologic | | monitoring, maintenance of adequate conscious sedation, and independent retirement | | supervision was performed throughout the procedure. PROCEDURE: An informed written | | consent had been obtained from the patient prior to the procedure. The site of | | intervention was marked and a time out was performed. Patient was placed supine on the | | interventional table and his left upper extremity was prepped and draped in the usual | | sterile fashion. After giving local anesthesia, the fistula was accessed directed | | centrally with the standard 4-Ivorian micropuncture set. Contrast was then injected | | through the micro-dilator and a digital imaging over the left arm and upper chest were | | performed. Initial fistula pressure was 138/73 mm Hg. Arterial pressure was 166/84 mm | | Hg. A reflux run of the arterial anastomosis was also performed. Imaging revealed a long | | segment severe narrowing of the outflow cephalic vein at the mid humerus level. | | Otherwise, the arterial anastomosis and the central venous outflow was widely patent. A | | prominent proximal venous collateral was also seen stealing blood away from the | | fistula. Access was then secured with a 5-Ivorian sheath. Access was obtained into the | | venous collateral with the aid of a Bentson wire and a Kumpe catheter. The collateral | | was embolized with multiple 5-3 mm tornado coils. Complete occlusion of this venous | | collateral was achieved. Next, the area of long segment stenosis was traversed with a | | 0.014 inch wire. The mid cephalic vein was subsequently angioplastied using a 8 mm x 4 | | cm Gus angioplasty balloon. However, post angioplasty angiogram revealed a severe | | flow limiting dissection and contrast extravasation in the mid cephalic vein, likely due | | to the drastic mismatch between the caliber of the severely narrowed cephalic vein and | | the angioplasty balloon. Therefore, a 7-mm x 8-cm self-expanding absolute pro bare | | metallic stent was deployed across the area of dissection and contrast extravasation. | | Follow-up angiogram revealed excellent angiographic results with no residual stenosis | | and brisk inflow and outflow from the fistula. The final fistula pressure was 101/52 mm | | Hg. Wires and catheters were removed. Sheath was removed as well and hemostasis | | achieved with a 3-0 pursestring stitch. A sterile dressing was applied. A great thrill | | was palpated over the fistula at the end of the procedure. There were no immediate | | procedural complications. Patient tolerated the procedure well. FINDINGS: 1. Initial | | fistulogram showed a long segment severe narrowing in the mid cephalic vein. Also, a | | prominent proximal venous collateral which was also seen on the previous study was | | visualized.2. Post angioplasty angiogram revealed a severe flow limiting dissection and | | contrast extravasation in the mid cephalic vein, which was successfully treated with a | | 7 mm x 8 cm self-expanding metallic stent, with excellent angiographic results.3. A | | prominent proximal venous collateral was successfully coil embolized. IMPRESSION: 1. | | Successful percutaneous balloon angioplasty and stenting of a long segment severe | | narrowing in the mid outflowing cephalic vein.2. Successful coil embolization of a | | prominent proximal venous collateral.3. Excellent final hemodynamic and angiographic | | results were achieved. | + + IR Inj Dialysis Circuit w Angioplasty (08/23/2011 2:54 PM PDT) + + | Specimen | + + | | + + + + + | Narrative | Performed At | + + + | PROCEDURE/EXAMINATION: Left upper extremity AV fistulogram, coil | | | embolization of the proximal venous collateral, balloon angioplasty of | | | the long segment severe stenoses in the outflowing cephalic vein, | | | stenting of the outflowing cephalic vein. HISTORY/INDICATION: | | | 51-year-old male with end-stage renal disease, who has been dialyzed | | | through a left upper extremity brachial cephalic fistula. Loss of | | | thrill and increased arterial pressures noted on recent dialysis | | | sessions. Angiography in further intervention is planned. | | | COMPARISON: May 24, 2011 MEDICATIONS: Isovue-250 60 cc, | | | Heparin 5000 units intravenous, Versed 2 mg intravenous, fentanyl | | | 100-mcg intravenous. Intra-procedure sedation time 56 minutes. The | | | radiation dose 58 mGray, Fluoroscopy time 14.8 minutes. | | | Appropriate physiologic monitoring, maintenance of adequate | | | conscious sedation, and independent retirement supervision was | | | performed throughout the procedure. PROCEDURE: An informed | | | written consent had been obtained from the patient prior to the | | | procedure. The site of intervention was marked and a time out was | | | performed. Patient was placed supine on the interventional table | | | and his left upper extremity was prepped and draped in the usual | | | sterile fashion. After giving local anesthesia, the fistula was | | | accessed directed centrally with the standard 4-Ivorian micropuncture | | | set. Contrast was then injected through the micro-dilator and a | | | digital imaging over the left arm and upper chest were performed. | | | Initial fistula pressure was 138/73 mm Hg. Arterial pressure was | | | 166/84 mm Hg. A reflux run of the arterial anastomosis was also | | | performed. Imaging revealed a long segment severe narrowing of the | | | outflow cephalic vein at the mid humerus level. Otherwise, the | | | arterial anastomosis and the central venous outflow was widely patent. | | | A prominent proximal venous collateral was also seen stealing | | | blood away from the fistula. Access was then secured with a | | | 5-Ivorian sheath. Access was obtained into the venous collateral with | | | the aid of a Bentson wire and a Kumpe catheter. The collateral was | | | embolized with multiple 5-3 mm tornado coils. Complete occlusion of | | | this venous collateral was achieved. Next, the area of long | | | segment stenosis was traversed with a 0.014 inch wire. The mid | | | cephalic vein was subsequently angioplastied using a 8 mm x 4 cm | | | Gus angioplasty balloon. However, post angioplasty angiogram | | | revealed a severe flow limiting dissection and contrast | | | extravasation in the mid cephalic vein, likely due to the drastic | | | mismatch between the caliber of the severely narrowed cephalic vein | | | and the angioplasty balloon. Therefore, a 7-mm x 8-cm self-expanding | | | absolute pro bare metallic stent was deployed across the area of | | | dissection and contrast extravasation. Follow-up angiogram | | | revealed excellent angiographic results with no residual stenosis and | | | brisk inflow and outflow from the fistula. The final fistula | | | pressure was 101/52 mm Hg. Wires and catheters were removed. Sheath | | | was removed as well and hemostasis achieved with a 3-0 pursestring | | | stitch. A sterile dressing was applied. A great thrill was palpated | | | over the fistula at the end of the procedure. There were no | | | immediate procedural complications. Patient tolerated the procedure | | | well. FINDINGS: 1. Initial fistulogram showed a long segment | | | severe narrowing in the mid cephalic vein. Also, a prominent | | | proximal venous collateral which was also seen on the previous study | | | was visualized. 2. Post angioplasty angiogram revealed a severe | | | flow limiting dissection and contrast extravasation in the mid | | | cephalic vein, which was successfully treated with a 7 mm x 8 cm | | | self-expanding metallic stent, with excellent angiographic results. | | | 3. A prominent proximal venous collateral was successfully coil | | | embolized. IMPRESSION: 1. Successful percutaneous balloon | | | angioplasty and stenting of a long segment severe narrowing in the mid | | | outflowing cephalic vein. 2. Successful coil embolization of a | | | prominent proximal venous collateral. 3. Excellent final | | | hemodynamic and angiographic results were achieved. Electronically | | | signed by Shashi Bruner DO on 08/23/2011 7:30 PM | | + + + + + | Procedure Note | + + | Abhishek, Manoj Conversion - 01/05/2019 9:02 AM PDT PROCEDURE/EXAMINATION: Left upper | | extremity AV fistulogram, coil embolization of the proximal venous collateral, balloon | | angioplasty of the long segment severe stenoses in the outflowing cephalic vein, | | stenting of the outflowing cephalic vein. HISTORY/INDICATION: 51-year-old male with | | end-stage renal disease, who has been dialyzed through a left upper extremity brachial | | cephalic fistula. Loss of thrill and increased arterial pressures noted on recent | | dialysis sessions. Angiography in further intervention is planned. COMPARISON: May | | 2011 MEDICATIONS: Isovue-250 60 cc, Heparin 5000 units intravenous, Versed 2 mg | | intravenous, fentanyl 100-mcg intravenous. Intra-procedure sedation time 56 minutes. | | The radiation dose 58 mGray, Fluoroscopy time 14.8 minutes. Appropriate physiologic | | monitoring, maintenance of adequate conscious sedation, and independent retirement | | supervision was performed throughout the procedure. PROCEDURE: An informed written | | consent had been obtained from the patient prior to the procedure. The site of | | intervention was marked and a time out was performed. Patient was placed supine on the | | interventional table and his left upper extremity was prepped and draped in the usual | | sterile fashion. After giving local anesthesia, the fistula was accessed directed | | centrally with the standard 4-Ivorian micropuncture set. Contrast was then injected | | through the micro-dilator and a digital imaging over the left arm and upper chest were | | performed. Initial fistula pressure was 138/73 mm Hg. Arterial pressure was 166/84 mm | | Hg. A reflux run of the arterial anastomosis was also performed. Imaging revealed a long | | segment severe narrowing of the outflow cephalic vein at the mid humerus level. | | Otherwise, the arterial anastomosis and the central venous outflow was widely patent. A | | prominent proximal venous collateral was also seen stealing blood away from the | | fistula. Access was then secured with a 5-Ivorian sheath. Access was obtained into the | | venous collateral with the aid of a Bentson wire and a Kumpe catheter. The collateral | | was embolized with multiple 5-3 mm tornado coils. Complete occlusion of this venous | | collateral was achieved. Next, the area of long segment stenosis was traversed with a | | 0.014 inch wire. The mid cephalic vein was subsequently angioplastied using a 8 mm x 4 | | cm Gus angioplasty balloon. However, post angioplasty angiogram revealed a severe | | flow limiting dissection and contrast extravasation in the mid cephalic vein, likely due | | to the drastic mismatch between the caliber of the severely narrowed cephalic vein and | | the angioplasty balloon. Therefore, a 7-mm x 8-cm self-expanding absolute pro bare | | metallic stent was deployed across the area of dissection and contrast extravasation. | | Follow-up angiogram revealed excellent angiographic results with no residual stenosis | | and brisk inflow and outflow from the fistula. The final fistula pressure was 101/52 mm | | Hg. Wires and catheters were removed. Sheath was removed as well and hemostasis | | achieved with a 3-0 pursestring stitch. A sterile dressing was applied. A great thrill | | was palpated over the fistula at the end of the procedure. There were no immediate | | procedural complications. Patient tolerated the procedure well. FINDINGS: 1. Initial | | fistulogram showed a long segment severe narrowing in the mid cephalic vein. Also, a | | prominent proximal venous collateral which was also seen on the previous study was | | visualized.2. Post angioplasty angiogram revealed a severe flow limiting dissection and | | contrast extravasation in the mid cephalic vein, which was successfully treated with a | | 7 mm x 8 cm self-expanding metallic stent, with excellent angiographic results.3. A | | prominent proximal venous collateral was successfully coil embolized. IMPRESSION: 1. | | Successful percutaneous balloon angioplasty and stenting of a long segment severe | | narrowing in the mid outflowing cephalic vein.2. Successful coil embolization of a | | prominent proximal venous collateral.3. Excellent final hemodynamic and angiographic | | results were achieved. | + + IR Angioplasty/Atherectomy/Stent (08/23/2011 2:54 PM PDT) + + | Specimen | + + | | + + + + + | Narrative | Performed At | + + + | PROCEDURE/EXAMINATION: Left upper extremity AV fistulogram, coil | | | embolization of the proximal venous collateral, balloon angioplasty of | | | the long segment severe stenoses in the outflowing cephalic vein, | | | stenting of the outflowing cephalic vein. HISTORY/INDICATION: | | | 51-year-old male with end-stage renal disease, who has been dialyzed | | | through a left upper extremity brachial cephalic fistula. Loss of | | | thrill and increased arterial pressures noted on recent dialysis | | | sessions. Angiography in further intervention is planned. | | | COMPARISON: May 24, 2011 MEDICATIONS: Isovue-250 60 cc, | | | Heparin 5000 units intravenous, Versed 2 mg intravenous, fentanyl | | | 100-mcg intravenous. Intra-procedure sedation time 56 minutes. The | | | radiation dose 58 mGray, Fluoroscopy time 14.8 minutes. | | | Appropriate physiologic monitoring, maintenance of adequate | | | conscious sedation, and independent retirement supervision was | | | performed throughout the procedure. PROCEDURE: An informed | | | written consent had been obtained from the patient prior to the | | | procedure. The site of intervention was marked and a time out was | | | performed. Patient was placed supine on the interventional table | | | and his left upper extremity was prepped and draped in the usual | | | sterile fashion. After giving local anesthesia, the fistula was | | | accessed directed centrally with the standard 4-Ivorian micropuncture | | | set. Contrast was then injected through the micro-dilator and a | | | digital imaging over the left arm and upper chest were performed. | | | Initial fistula pressure was 138/73 mm Hg. Arterial pressure was | | | 166/84 mm Hg. A reflux run of the arterial anastomosis was also | | | performed. Imaging revealed a long segment severe narrowing of the | | | outflow cephalic vein at the mid humerus level. Otherwise, the | | | arterial anastomosis and the central venous outflow was widely patent. | | | A prominent proximal venous collateral was also seen stealing | | | blood away from the fistula. Access was then secured with a | | | 5-Ivorian sheath. Access was obtained into the venous collateral with | | | the aid of a Bentson wire and a Kumpe catheter. The collateral was | | | embolized with multiple 5-3 mm tornado coils. Complete occlusion of | | | this venous collateral was achieved. Next, the area of long | | | segment stenosis was traversed with a 0.014 inch wire. The mid | | | cephalic vein was subsequently angioplastied using a 8 mm x 4 cm | | | Gus angioplasty balloon. However, post angioplasty angiogram | | | revealed a severe flow limiting dissection and contrast | | | extravasation in the mid cephalic vein, likely due to the drastic | | | mismatch between the caliber of the severely narrowed cephalic vein | | | and the angioplasty balloon. Therefore, a 7-mm x 8-cm self-expanding | | | absolute pro bare metallic stent was deployed across the area of | | | dissection and contrast extravasation. Follow-up angiogram | | | revealed excellent angiographic results with no residual stenosis and | | | brisk inflow and outflow from the fistula. The final fistula | | | pressure was 101/52 mm Hg. Wires and catheters were removed. Sheath | | | was removed as well and hemostasis achieved with a 3-0 pursestring | | | stitch. A sterile dressing was applied. A great thrill was palpated | | | over the fistula at the end of the procedure. There were no | | | immediate procedural complications. Patient tolerated the procedure | | | well. FINDINGS: 1. Initial fistulogram showed a long segment | | | severe narrowing in the mid cephalic vein. Also, a prominent | | | proximal venous collateral which was also seen on the previous study | | | was visualized. 2. Post angioplasty angiogram revealed a severe | | | flow limiting dissection and contrast extravasation in the mid | | | cephalic vein, which was successfully treated with a 7 mm x 8 cm | | | self-expanding metallic stent, with excellent angiographic results. | | | 3. A prominent proximal venous collateral was successfully coil | | | embolized. IMPRESSION: 1. Successful percutaneous balloon | | | angioplasty and stenting of a long segment severe narrowing in the mid | | | outflowing cephalic vein. 2. Successful coil embolization of a | | | prominent proximal venous collateral. 3. Excellent final | | | hemodynamic and angiographic results were achieved. Electronically | | | signed by Shashi Bruner DO on 08/23/2011 7:30 PM | | + + + + + | Procedure Note | + + | Manoj Weiss Conversion - 01/05/2019 9:02 AM PDT PROCEDURE/EXAMINATION: Left upper | | extremity AV fistulogram, coil embolization of the proximal venous collateral, balloon | | angioplasty of the long segment severe stenoses in the outflowing cephalic vein, | | stenting of the outflowing cephalic vein. HISTORY/INDICATION: 51-year-old male with | | end-stage renal disease, who has been dialyzed through a left upper extremity brachial | | cephalic fistula. Loss of thrill and increased arterial pressures noted on recent | | dialysis sessions. Angiography in further intervention is planned. COMPARISON: May | | 2011 MEDICATIONS: Isovue-250 60 cc, Heparin 5000 units intravenous, Versed 2 mg | | intravenous, fentanyl 100-mcg intravenous. Intra-procedure sedation time 56 minutes. | | The radiation dose 58 mGray, Fluoroscopy time 14.8 minutes. Appropriate physiologic | | monitoring, maintenance of adequate conscious sedation, and independent retirement | | supervision was performed throughout the procedure. PROCEDURE: An informed written | | consent had been obtained from the patient prior to the procedure. The site of | | intervention was marked and a time out was performed. Patient was placed supine on the | | interventional table and his left upper extremity was prepped and draped in the usual | | sterile fashion. After giving local anesthesia, the fistula was accessed directed | | centrally with the standard 4-Ivorian micropuncture set. Contrast was then injected | | through the micro-dilator and a digital imaging over the left arm and upper chest were | | performed. Initial fistula pressure was 138/73 mm Hg. Arterial pressure was 166/84 mm | | Hg. A reflux run of the arterial anastomosis was also performed. Imaging revealed a long | | segment severe narrowing of the outflow cephalic vein at the mid humerus level. | | Otherwise, the arterial anastomosis and the central venous outflow was widely patent. A | | prominent proximal venous collateral was also seen stealing blood away from the | | fistula. Access was then secured with a 5-Ivorian sheath. Access was obtained into the | | venous collateral with the aid of a Bentson wire and a Kumpe catheter. The collateral | | was embolized with multiple 5-3 mm tornado coils. Complete occlusion of this venous | | collateral was achieved. Next, the area of long segment stenosis was traversed with a | | 0.014 inch wire. The mid cephalic vein was subsequently angioplastied using a 8 mm x 4 | | cm Gus angioplasty balloon. However, post angioplasty angiogram revealed a severe | | flow limiting dissection and contrast extravasation in the mid cephalic vein, likely due | | to the drastic mismatch between the caliber of the severely narrowed cephalic vein and | | the angioplasty balloon. Therefore, a 7-mm x 8-cm self-expanding absolute pro bare | | metallic stent was deployed across the area of dissection and contrast extravasation. | | Follow-up angiogram revealed excellent angiographic results with no residual stenosis | | and brisk inflow and outflow from the fistula. The final fistula pressure was 101/52 mm | | Hg. Wires and catheters were removed. Sheath was removed as well and hemostasis | | achieved with a 3-0 pursestring stitch. A sterile dressing was applied. A great thrill | | was palpated over the fistula at the end of the procedure. There were no immediate | | procedural complications. Patient tolerated the procedure well. FINDINGS: 1. Initial | | fistulogram showed a long segment severe narrowing in the mid cephalic vein. Also, a | | prominent proximal venous collateral which was also seen on the previous study was | | visualized.2. Post angioplasty angiogram revealed a severe flow limiting dissection and | | contrast extravasation in the mid cephalic vein, which was successfully treated with a | | 7 mm x 8 cm self-expanding metallic stent, with excellent angiographic results.3. A | | prominent proximal venous collateral was successfully coil embolized. IMPRESSION: 1. | | Successful percutaneous balloon angioplasty and stenting of a long segment severe | | narrowing in the mid outflowing cephalic vein.2. Successful coil embolization of a | | prominent proximal venous collateral.3. Excellent final hemodynamic and angiographic | | results were achieved. | + + IR Inj Dialysis Circuit (08/23/2011 2:54 PM PDT) + + | Specimen | + + | | + + + + + | Narrative | Performed At | + + + | PROCEDURE/EXAMINATION: Left upper extremity AV fistulogram, coil | | | embolization of the proximal venous collateral, balloon angioplasty of | | | the long segment severe stenoses in the outflowing cephalic vein, | | | stenting of the outflowing cephalic vein. HISTORY/INDICATION: | | | 51-year-old male with end-stage renal disease, who has been dialyzed | | | through a left upper extremity brachial cephalic fistula. Loss of | | | thrill and increased arterial pressures noted on recent dialysis | | | sessions. Angiography in further intervention is planned. | | | COMPARISON: May 24, 2011 MEDICATIONS: Isovue-250 60 cc, | | | Heparin 5000 units intravenous, Versed 2 mg intravenous, fentanyl | | | 100-mcg intravenous. Intra-procedure sedation time 56 minutes. The | | | radiation dose 58 mGray, Fluoroscopy time 14.8 minutes. | | | Appropriate physiologic monitoring, maintenance of adequate | | | conscious sedation, and independent retirement supervision was | | | performed throughout the procedure. PROCEDURE: An informed | | | written consent had been obtained from the patient prior to the | | | procedure. The site of intervention was marked and a time out was | | | performed. Patient was placed supine on the interventional table | | | and his left upper extremity was prepped and draped in the usual | | | sterile fashion. After giving local anesthesia, the fistula was | | | accessed directed centrally with the standard 4-Ivorian micropuncture | | | set. Contrast was then injected through the micro-dilator and a | | | digital imaging over the left arm and upper chest were performed. | | | Initial fistula pressure was 138/73 mm Hg. Arterial pressure was | | | 166/84 mm Hg. A reflux run of the arterial anastomosis was also | | | performed. Imaging revealed a long segment severe narrowing of the | | | outflow cephalic vein at the mid humerus level. Otherwise, the | | | arterial anastomosis and the central venous outflow was widely patent. | | | A prominent proximal venous collateral was also seen stealing | | | blood away from the fistula. Access was then secured with a | | | 5-Ivorian sheath. Access was obtained into the venous collateral with | | | the aid of a Bentson wire and a Kumpe catheter. The collateral was | | | embolized with multiple 5-3 mm tornado coils. Complete occlusion of | | | this venous collateral was achieved. Next, the area of long | | | segment stenosis was traversed with a 0.014 inch wire. The mid | | | cephalic vein was subsequently angioplastied using a 8 mm x 4 cm | | | Gus angioplasty balloon. However, post angioplasty angiogram | | | revealed a severe flow limiting dissection and contrast | | | extravasation in the mid cephalic vein, likely due to the drastic | | | mismatch between the caliber of the severely narrowed cephalic vein | | | and the angioplasty balloon. Therefore, a 7-mm x 8-cm self-expanding | | | absolute pro bare metallic stent was deployed across the area of | | | dissection and contrast extravasation. Follow-up angiogram | | | revealed excellent angiographic results with no residual stenosis and | | | brisk inflow and outflow from the fistula. The final fistula | | | pressure was 101/52 mm Hg. Wires and catheters were removed. Sheath | | | was removed as well and hemostasis achieved with a 3-0 pursestring | | | stitch. A sterile dressing was applied. A great thrill was palpated | | | over the fistula at the end of the procedure. There were no | | | immediate procedural complications. Patient tolerated the procedure | | | well. FINDINGS: 1. Initial fistulogram showed a long segment | | | severe narrowing in the mid cephalic vein. Also, a prominent | | | proximal venous collateral which was also seen on the previous study | | | was visualized. 2. Post angioplasty angiogram revealed a severe | | | flow limiting dissection and contrast extravasation in the mid | | | cephalic vein, which was successfully treated with a 7 mm x 8 cm | | | self-expanding metallic stent, with excellent angiographic results. | | | 3. A prominent proximal venous collateral was successfully coil | | | embolized. IMPRESSION: 1. Successful percutaneous balloon | | | angioplasty and stenting of a long segment severe narrowing in the mid | | | outflowing cephalic vein. 2. Successful coil embolization of a | | | prominent proximal venous collateral. 3. Excellent final | | | hemodynamic and angiographic results were achieved. Electronically | | | signed by Shashi Bruner DO on 08/23/2011 7:30 PM | | + + + + + | Procedure Note | + + | Abhishek, Rad Conversion - 01/05/2019 9:02 AM PDT PROCEDURE/EXAMINATION: Left upper | | extremity AV fistulogram, coil embolization of the proximal venous collateral, balloon | | angioplasty of the long segment severe stenoses in the outflowing cephalic vein, | | stenting of the outflowing cephalic vein. HISTORY/INDICATION: 51-year-old male with | | end-stage renal disease, who has been dialyzed through a left upper extremity brachial | | cephalic fistula. Loss of thrill and increased arterial pressures noted on recent | | dialysis sessions. Angiography in further intervention is planned. COMPARISON: May | 2011 MEDICATIONS: Isovue-250 60 cc, Heparin 5000 units intravenous, Versed 2 mg | | intravenous, fentanyl 100-mcg intravenous. Intra-procedure sedation time 56 minutes. | | The radiation dose 58 mGray, Fluoroscopy time 14.8 minutes. Appropriate physiologic | | monitoring, maintenance of adequate conscious sedation, and independent retirement | | supervision was performed throughout the procedure. PROCEDURE: An informed written | | consent had been obtained from the patient prior to the procedure. The site of | | intervention was marked and a time out was performed. Patient was placed supine on the | | interventional table and his left upper extremity was prepped and draped in the usual | | sterile fashion. After giving local anesthesia, the fistula was accessed directed | | centrally with the standard 4-Ivorian micropuncture set. Contrast was then injected | | through the micro-dilator and a digital imaging over the left arm and upper chest were | | performed. Initial fistula pressure was 138/73 mm Hg. Arterial pressure was 166/84 mm | | Hg. A reflux run of the arterial anastomosis was also performed. Imaging revealed a long | | segment severe narrowing of the outflow cephalic vein at the mid humerus level. | | Otherwise, the arterial anastomosis and the central venous outflow was widely patent. A | | prominent proximal venous collateral was also seen stealing blood away from the | | fistula. Access was then secured with a 5-Ivorian sheath. Access was obtained into the | | venous collateral with the aid of a Bentson wire and a Kumpe catheter. The collateral | | was embolized with multiple 5-3 mm tornado coils. Complete occlusion of this venous | | collateral was achieved. Next, the area of long segment stenosis was traversed with a | | 0.014 inch wire. The mid cephalic vein was subsequently angioplastied using a 8 mm x 4 | | cm Gus angioplasty balloon. However, post angioplasty angiogram revealed a severe | | flow limiting dissection and contrast extravasation in the mid cephalic vein, likely due | | to the drastic mismatch between the caliber of the severely narrowed cephalic vein and | | the angioplasty balloon. Therefore, a 7-mm x 8-cm self-expanding absolute pro bare | | metallic stent was deployed across the area of dissection and contrast extravasation. | | Follow-up angiogram revealed excellent angiographic results with no residual stenosis | | and brisk inflow and outflow from the fistula. The final fistula pressure was 101/52 mm | | Hg. Wires and catheters were removed. Sheath was removed as well and hemostasis | | achieved with a 3-0 pursestring stitch. A sterile dressing was applied. A great thrill | | was palpated over the fistula at the end of the procedure. There were no immediate | | procedural complications. Patient tolerated the procedure well. FINDINGS: 1. Initial | | fistulogram showed a long segment severe narrowing in the mid cephalic vein. Also, a | | prominent proximal venous collateral which was also seen on the previous study was | | visualized.2. Post angioplasty angiogram revealed a severe flow limiting dissection and | | contrast extravasation in the mid cephalic vein, which was successfully treated with a | | 7 mm x 8 cm self-expanding metallic stent, with excellent angiographic results.3. A | | prominent proximal venous collateral was successfully coil embolized. IMPRESSION: 1. | | Successful percutaneous balloon angioplasty and stenting of a long segment severe | | narrowing in the mid outflowing cephalic vein.2. Successful coil embolization of a | | prominent proximal venous collateral.3. Excellent final hemodynamic and angiographic | | results were achieved. | + + documented in this encounter Visit Diagnoses + + | Diagnosis | + + | ESRD (end stage renal disease) (HCC) End stage renal disease | + + documented in this encounter
--- OUTSIDE RECORDS SUMMARY | ~2019-05-09 | XMS | Encounter Summary ---
Demographics + + + | Address | [address] | | | [place] [address] | + + + | Home Phone | | + + + | Preferred Language | Unknown | + + + | Marital Status | Single | + + + | Anabaptist Affiliation | Unknown | + + + | Race | Black or | + + + | Ethnic Group | Not or | + + + Author + + + | Author | [facility] [employer] [facility] | + + + | Organization [...] Team Providers + +------+ + | Care Dressing Room Attendant Name | Role | Phone | + +------+ + | Oziel Michael MD | PCP | | + +------+ + Encounter Details +--------+ + + + + | Date | Type | Department | Care Team | Description | +--------+ + + + + | 12/28/ | Ancillary | LAB IMMUNOGENETIC | | | | 2012 | Orders | [facility] | | | | | | [address] | | | | | | [address] [place], | | | | | | [place] [address] | | | +--------+ + + + [...] FLOW HLA AB PRA | Routin | 12/28/2012 | | | | SCREEN I/II | e | 3:22 PM | | | | | | PDT | | | + +--------+ + + + documented in this encounter Results LIT FLOW HLA AB PRA SCREEN I/II (12/28/2012 3:22 PM PDT) + + | Specimen | + + | Blood - Blood | + + + + + + + | Performing | Address | City/State/Zipcode | Phone Number | | Organization | | | | + + + + + | [facility] - | [address] | [place] [address] | | | IMMUNOGENETICS/TRANS | [address] | | | | [facility] | | | | + + + + + documented in this encounter Visit Diagnoses Not on filedocumented in this encounter"
--- OUTSIDE RECORDS SUMMARY | ~2019-05-09 | XMS | Encounter Summary ---
Demographics + + + | Address | [address] | | | [place] [address] | + + + | Home Phone | | + + + | Preferred Language | Unknown | + + + | Marital Status | Unknown | + + + | Sabianist Affiliation | Unknown | + + + [...] Team Providers + +------+ + | Care Repairer Auto Clocks Name | Role | Phone | + +------+ + | Oziel Michael MD | PCP | | + +------+ + Encounter Details +--------+ + + + + | Date | Type | Department | Care Team | Description | +--------+ + + + + | 09/26/ | Orders Only | [facility] | Alexx Gutierrez MD | | | 2018 | | NEPHROLOGY [place] | [address] [place] | | | | | [address] [place] | [address] [place], [place] | | | | | [address] [place], [place] | [address] | | | | | [address] | | | | | | [phone] | | | +--------+ + + + [...] 2019 | Visit | | [address] [facility] | | | | | | [address] [place] | | | | | | [address] | | | | | | | [...]
--- OUTSIDE RECORDS SUMMARY | ~2019-05-09 | XMS | Encounter Summary ---
Demographics + + + | Address | [address] | | | [place] [address] | + + + | Home Phone | | + + + | Preferred Language | Unknown | + + + | Marital Status | Single | + + + | Episcopal Affiliation | Unknown | + + + | Race | Black or | + + + | Ethnic Group | Not or | + + + Author + + + | Author | [facility] | + + + | Organization | [facility] | + + + | Address | Unknown | + + + | Phone | Unavailable | + + + Support + + +---------+ + | Name | Relationship | Address | Phone | + + +---------+ + | Olesya Lamb | ECON | Unknown | | + + +---------+ + Care Team Providers + +------+ + | Care Development Technician Name | Role | Phone | + +------+ + | Oziel Michael MD | PCP | | + +------+ + Encounter Details +--------+ + + + + | Date | Type | Department | Care Team | Description | +--------+ + + + + | 01/18/ | Lab | LAB IMMUNOGENETIC | | | | 2015 | Requisition | [facility] | | | | | | [address] | | | | | | [address] [place], | | | | | | [place] [address] | | | +--------+ + + + [...] FLOW HLA AB PRA | Routin | 01/19/2016 | | | | SCREEN I/II | e | 3:21 PM | | | | | | PDT | | | + +--------+ + + + documented in this encounter Results LIT FLOW HLA AB PRA SCREEN I/II (01/19/2016 3:21 PM PDT) + + | Specimen | + + | Blood - Blood | | (substance) | + + + + + + + | Performing | Address | City/State/Zipcode | Phone Number | | Organization | | | | + + + + + | [facility] - | [address] | [place] [address] | | | IMMUNOGENETICS/TRANS | [address] | | | | [facility] | | | | + + + + + documented in this encounter Visit Diagnoses Not on filedocumented in this encounter"
--- OUTSIDE RECORDS SUMMARY | ~2019-05-09 | XMS | Encounter Summary ---
Demographics + + + | Address | [address] | | | [place] [address] | + + + | Home Phone [...] Author + + + | Author | [facility] | + + + | Organization | [facility] | + + + | Address | Unknown | + + + | Phone | Unavailable | + + + Support + + +---------+ + | Name | Relationship | Address | Phone | + + +---------+ + | Olesya Lamb | ECON | Unknown | | + + +---------+ + Care Team Providers + +------+ + | Care Plastic Welder Name | Role | Phone | + [...] | | | | | [address] [place], | | | | | | [place] [address] | | | +--------+ + + + [...] + + + | [facility] - | [address] | [place] [address] | | | IMMUNOGENETICS/TRANS | [address] | | | | [facility] | | | | + + + + + documented in this encounter Visit Diagnoses Not on filedocumented in this encounter"
--- OUTSIDE RECORDS SUMMARY | ~2019-05-09 | XMS | Encounter Summary ---
Demographics + + + | Address | [address] | | | [place] [address] | + + + | Home Phone | | + + + | Preferred Language | Unknown | + + + | Marital Status | Unknown | + + + | Islam Affiliation | Unknown | + + + [...] Team Providers + +------+ + | Care Scrum Coach Name | Role | Phone | + +------+ + PCP | Unavailable | + +------+ + Encounter Details +--------+ + + + + | Date | Type | Department | Care Team | Description | +--------+ + + + + | 12/16/ | Hospital | [facility] | Conversion | Clotted dialysis | | 2014 | Encounter | CENTER [facility] | Transaction, | access, subsequent | | | | [address] | Provider Unknown | encounter (HCC) | | | | [place], [place] | [phone] | | | | | [address] | | | | | | [phone] | Alexx Gutierrez MD | | | | | | [address] [place] | | | | | | [address] [place], [place] | | | | | | [id number] | | | | | | | [...] Progress Notes Conversion Transaction, Provider Unknown - 12/16/2013 3:31 PM PDTFormatting of this note m ight be different from the original. Progress Notes by Marie Naik RN at 12/16/13 1531 Author: Marie Naik RN Service: (none) Author Type: Registered Nurse Filed: 12/16/13 1532 Date of Service: 12/16/13 153 Status: Signed Cat Skinner: Marie Naik RN (Registered Nurse) Pt tolerated Declot well with no complications. Back to holding room for further RN monito rring. Recovery from sedation uneventful, with pt remaining A/O, no c/o. LUE fistula acces s site remains soft and nontender with dressing C/D/I. VSS. Pt tolerated water and soda po p well. D/C instructions reviewed with pt both verbally and in writing. Pt states that he understands. Dressed self and ambulated with RN escort out to hospital exit. D/C'd home vi a private vehicle with all personal belongings in his possession and with his friend in atte ndance. Marie Naik RN docume nted in this encounter Plan of Treatment +--------+---------+ + + + | Date | Type | Specialty | Care Team | Description | +--------+---------+ + + + | 05/20/ | Office | Nephrology | Alexx Gutierrez MD | | | 2019 | Visit | | [address] [place] | | | | | | [address] [place], [place] | | | | | | [address] | | | | | | | | +--------+---------+ + + + documented as of this encounter Procedures + +--------+ + + + | Procedure Name | Priori | Date/Time | Associated Diagnosis | Comments | | | ty | | | | + +--------+ + + + | IR INJECTION | Routin | 12/16/2013 | | Results for this | | DIALYSIS CIRCUIT W | e | 2:45 PM | | procedure are in the | | THROMBECTOMY | | PDT | | results section. | + +--------+ + + + | IR INJECTION | Routin | 12/16/2013 | | Results for this | | DIALYSIS CIRCUIT | e | 2:45 PM | | procedure are in the | | | | PDT | | results section. | + +--------+ + + + documented in this encounter Results IR Inj Dialysis Circuit w Thrombectomy (12/16/2013 2:45 PM PDT) + + | Specimen | + + | | + + + + + | Impressions | Performed At | + + + | Successful declotting of the thrombosed left arm arteriovenous | | | fistula with interposition graft using pharmacologic and mechanical | | | thrombectomy devices with good anatomic results and hemodynamic | | | results. 59770, 24187, 46000, 21988 | | + + + + + + | Narrative | Performed At | + + + | [facility] IR DECLOTTING OF THE LEFT ARM AV FISTULA 12/16/2013 | | | 2:45 PM HISTORY: 53 years. Male. Thrombosed left arm AV | | | fistula.585.6, 996.74. PROCEDURE: Declotting of the left arm AV | | | fistula. MEDICATIONS: Isovue 250 45 cc intravenous, Heparin 6500 | | | units intravenous, Versed 0 milligram intravenous, Fentanyl 100 | | | microgram intravenous. TPA 4-mg into the thrombosed fistula. Radiation | | | dose 146 mGy, fluoroscopy time 10.2 minutes. Intra procedure | | | sedation time 45 minutes. Appropriate physiologic monitoring, | | | maintenance of adequate conscious sedation, independent skilled | | | nursing supervision of the conscious sedation performed throughout the | | | procedure. DESCRIPTION OF PROCEDURE: Informed written consent | | | obtained from the patient after explaining the procedure, risks and | | | alternatives. Patient understood the discussion and expressed his | | | wish to proceed. The appropriate side and site was labeled and | | | initialed as an independent process antecedent to the imaging and | | | intervention, as per protocol at this institution. Patient was | | | placed supine on the x-ray table. Left arm was prepped in the usual | | | sterile fashion. Site for access into the graft localized close to | | | the left cubital fossa. Skin and subcutaneous tissues infiltrated | | | with 1% lidocaine. Graft was accessed using Micropuncture needle | | | and exchanged for 6-Libyan short sheath over 0.035 angled Glidewire. | | | Using combination of 4-Libyan angled [place] catheter and 0.035 angled | | | Glidewire, it was negotiated past the venous anastomosis to adjacent | | | distal left cephalic vein. Injection of contrast revealed | | | preocclusive stenosis of the proximal and distal anastomoses of the | | | interposition graft in the left cephalic vein and thrombosis of the | | | proximal left cephalic vein. Subsequently, 0.035 angled Glidewire | | | was negotiated with its tip in the upper right atrium. A 7 mm x 4 | | | cm balloon was advanced over the wire and angioplasty of the venous | | | anastomosis of the interposition graft performed. During inflation | | | the balloon, pressure was applied at arterial anastomosis and 4 mg | | | of tPA mixed with 1 mL of contrast for total of 3 mL volume injected | | | into the thrombosed graft. Subsequently, balloon was deflated and | | | balloon angioplasty of the venous anastomosis performed Subsequently, | | | balloon was removed over the wire and percutaneous mechanical | | | thrombectomy of the thrombosed graft performed using Trerotola | | | thrombectomy device. Subsequently, Trerotola device was removed and | | | macerated clot was aspirated using a 6-Libyan dilator through the | | | 6-Libyan sheath. Additionally, balloon maceration or thrombus | | | performed using 7 mm x 4 cm catheter. Subsequently, injection of | | | contrast revealed persistent narrowing at the venous anastomosis. | | | Hence, 7 mm x 4 cm balloon catheter was placed over the wire and a | | | repeat angioplasty the venous anastomosis performed. Subsequently, | | | injection of contrast revealed resolution of the stenosis in the | | | draining vein and the proximal and distal venous anastomoses of the | | | interposition graft. Subsequently, final fistulogram obtained and | | | this revealed absence of any hemodynamic significant stenosis and | | | normal and patent fistulogram from arterial anastomosis to right | | | atrium. Subsequently, final arterial pressure and fistula pressures | | | obtained and all catheters and wires were removed. Hemostasis | | | obtained with manual pressure. Patient tolerated the procedure well. | | | No procedural complications. FINDINGS: 1. Initial left | | | cephalic vein revealed thrombosis of the interposition graft and | | | normal patency of the central venous system. 2. Successful | | | pharmacologic and mechanical thrombectomy of the thrombosed left thumb | | | AV fistula with interposition graft in the distal cephalic vein, | | | without incident. 3. Final fistula pressure: 175/98 mmHg. | | | Arterial pressure: 107/69 mmHg. | | + + + + + | Procedure Note | + + | Abhishek, Rad Conversion - 12/28/2018 9:48 PM CAIO PRAJAPATI DECLOTTING OF THE | | LEFT ARM AV FISTULA12/16/2013 2:45 PM HISTORY:53 years. Male. Thrombosed left arm AV | | fistula.585.6, 996.74. PROCEDURE:Declotting of the left arm AV fistula. | | MEDICATIONS:Isovue 250 45 cc intravenous, Heparin 6500 units intravenous, Versed 0 | | milligram intravenous, Fentanyl 100 microgram intravenous. TPA 4-mg into the thrombosed | | fistula. Radiation dose 146 mGy, fluoroscopy time 10.2 minutes. Intra procedure | | sedation time 45 minutes. Appropriate physiologic monitoring, maintenance of adequate | | conscious sedation, independent detention supervision of the conscious sedation | | performed throughout the procedure. DESCRIPTION OF PROCEDURE:Informed written consent | | obtained from the patient after explaining the procedure, risks and alternatives. | | Patient understood the discussion and expressed his wish to proceed. The appropriate | | side and site was labeled and initialed as an independent process antecedent to the | | imaging and intervention, as per protocol at this institution. Patient was placed | | supine on the x-ray table. Left arm was prepped in the usual sterile fashion. Site for | | access into the graft localized close to the left cubital fossa. Skin and subcutaneous | | tissues infiltrated with 1% lidocaine. Graft was accessed using Micropuncture needle | | and exchanged for 6-Libyan short sheath over 0.035 angled Glidewire. Using combination | | of 4-Libyan angled [place] catheter and 0.035 angled Glidewire, it was negotiated past the | | venous anastomosis to adjacent distal left cephalic vein. Injection of contrast | | revealed preocclusive stenosis of the proximal and distal anastomoses of the | | interposition graft in the left cephalic vein and thrombosis of the proximal left | | cephalic vein. Subsequently, 0.035 angled Glidewire was negotiated with its tip in the | | upper right atrium. A 7 mm x 4 cm balloon was advanced over the wire and angioplasty of | | the venous anastomosis of the interposition graft performed. During inflation the | | balloon, pressure was applied at arterial anastomosis and 4 mg of tPA mixed with 1 mL of | | contrast for total of 3 mL volume injected into the thrombosed graft. Subsequently, | | balloon was deflated and balloon angioplasty of the venous anastomosis performed | | Subsequently, balloon was removed over the wire and percutaneous mechanical thrombectomy | | of the thrombosed graft performed using Trerotola thrombectomy device. Subsequently, | | Trerotola device was removed and macerated clot was aspirated using a 6-Libyan dilator | | through the 6-Libyan sheath. Additionally, balloon maceration or thrombus performed | | using 7 mm x 4 cm catheter. Subsequently, injection of contrast revealed persistent | | narrowing at the venous anastomosis. Hence, 7 mm x 4 cm balloon catheter was placed over | | the wire and a repeat angioplasty the venous anastomosis performed. Subsequently, | | injection of contrast revealed resolution of the stenosis in the draining vein and the | | proximal and distal venous anastomoses of the interposition graft. Subsequently, final | | fistulogram obtained and this revealed absence of any hemodynamic significant stenosis | | and normal and patent fistulogram from arterial anastomosis to right atrium. | | Subsequently, final arterial pressure and fistula pressures obtained and all catheters | | and wires were removed. Hemostasis obtained with manual pressure. Patient tolerated | | the procedure well. No procedural complications. FINDINGS:1. Initial left cephalic | | vein revealed thrombosis of the interposition graft and normal patency of the central | | venous system.2. Successful pharmacologic and mechanical thrombectomy of the thrombosed | | left thumb AV fistula with interposition graft in the distal cephalic vein, without | | incident.3. Final fistula pressure: 175/98 mmHg. Arterial pressure: 107/69 mmHg. | | IMPRESSION: Successful declotting of the thrombosed left arm arteriovenous fistula with | | interposition graft using pharmacologic and mechanical thrombectomy devices with good | | anatomic results and hemodynamic results. 55085, 45701, 94226, 91398 Electronically | | signed by Ziyad Russ MD on 12/16/2013 3:20 PM | + + IR Inj Dialysis Circuit (12/16/2013 2:45 PM PDT) + + | Specimen | + + | | + + + + + | Impressions | Performed At | + + + | Successful declotting of the thrombosed left arm arteriovenous | | | fistula with interposition graft using pharmacologic and mechanical | | | thrombectomy devices with good anatomic results and hemodynamic | | | results. 67671, 38997, 10835, 21768 | | + + + + + + | Narrative | Performed At | + + + | [facility] IR DECLOTTING OF THE LEFT ARM AV FISTULA 12/16/2013 | | | 2:45 PM HISTORY: 53 years. Male. Thrombosed left arm AV | | | fistula.585.6, 996.74. PROCEDURE: Declotting of the left arm AV | | | fistula. MEDICATIONS: Isovue 250 45 cc intravenous, Heparin 6500 | | | units intravenous, Versed 0 milligram intravenous, Fentanyl 100 | | | microgram intravenous. TPA 4-mg into the thrombosed fistula. Radiation | | | dose 146 mGy, fluoroscopy time 10.2 minutes. Intra procedure | | | sedation time 45 minutes. Appropriate physiologic monitoring, | | | maintenance of adequate conscious sedation, independent skilled | | | nursing supervision of the conscious sedation performed throughout the | | | procedure. DESCRIPTION OF PROCEDURE: Informed written consent | | | obtained from the patient after explaining the procedure, risks and | | | alternatives. Patient understood the discussion and expressed his | | | wish to proceed. The appropriate side and site was labeled and | | | initialed as an independent process antecedent to the imaging and | | | intervention, as per protocol at this institution. Patient was | | | placed supine on the x-ray table. Left arm was prepped in the usual | | | sterile fashion. Site for access into the graft localized close to | | | the left cubital fossa. Skin and subcutaneous tissues infiltrated | | | with 1% lidocaine. Graft was accessed using Micropuncture needle | | | and exchanged for 6-Libyan short sheath over 0.035 angled Glidewire. | | | Using combination of 4-Libyan angled [place] catheter and 0.035 angled | | | Glidewire, it was negotiated past the venous anastomosis to adjacent | | | distal left cephalic vein. Injection of contrast revealed | | | preocclusive stenosis of the proximal and distal anastomoses of the | | | interposition graft in the left cephalic vein and thrombosis of the | | | proximal left cephalic vein. Subsequently, 0.035 angled Glidewire | | | was negotiated with its tip in the upper right atrium. A 7 mm x 4 | | | cm balloon was advanced over the wire and angioplasty of the venous | | | anastomosis of the interposition graft performed. During inflation | | | the balloon, pressure was applied at arterial anastomosis and 4 mg | | | of tPA mixed with 1 mL of contrast for total of 3 mL volume injected | | | into the thrombosed graft. Subsequently, balloon was deflated and | | | balloon angioplasty of the venous anastomosis performed Subsequently, | | | balloon was removed over the wire and percutaneous mechanical | | | thrombectomy of the thrombosed graft performed using Trerotola | | | thrombectomy device. Subsequently, Trerotola device was removed and | | | macerated clot was aspirated using a 6-Libyan dilator through the | | | 6-Libyan sheath. Additionally, balloon maceration or thrombus | | | performed using 7 mm x 4 cm catheter. Subsequently, injection of | | | contrast revealed persistent narrowing at the venous anastomosis. | | | Hence, 7 mm x 4 cm balloon catheter was placed over the wire and a | | | repeat angioplasty the venous anastomosis performed. Subsequently, | | | injection of contrast revealed resolution of the stenosis in the | | | draining vein and the proximal and distal venous anastomoses of the | | | interposition graft. Subsequently, final fistulogram obtained and | | | this revealed absence of any hemodynamic significant stenosis and | | | normal and patent fistulogram from arterial anastomosis to right | | | atrium. Subsequently, final arterial pressure and fistula pressures | | | obtained and all catheters and wires were removed. Hemostasis | | | obtained with manual pressure. Patient tolerated the procedure well. | | | No procedural complications. FINDINGS: 1. Initial left | | | cephalic vein revealed thrombosis of the interposition graft and | | | normal patency of the central venous system. 2. Successful | | | pharmacologic and mechanical thrombectomy of the thrombosed left thumb | | | AV fistula with interposition graft in the distal cephalic vein, | | | without incident. 3. Final fistula pressure: 175/98 mmHg. | | | Arterial pressure: 107/69 mmHg. | | + + + + + | Procedure Note | + + | Manoj Weiss Conversion - 12/28/2018 9:48 PM CAIO PRAJAPATI DECLOTTING OF THE | | LEFT ARM AV FISTULA12/16/2013 2:45 PM HISTORY:53 years. Male. Thrombosed left arm AV | | fistula.585.6, 996.74. PROCEDURE:Declotting of the left arm AV fistula. | | MEDICATIONS:Isovue 250 45 cc intravenous, Heparin 6500 units intravenous, Versed 0 | | milligram intravenous, Fentanyl 100 microgram intravenous. TPA 4-mg into the thrombosed | | fistula. Radiation dose 146 mGy, fluoroscopy time 10.2 minutes. Intra procedure | | sedation time 45 minutes. Appropriate physiologic monitoring, maintenance of adequate | | conscious sedation, independent detention supervision of the conscious sedation | | performed throughout the procedure. DESCRIPTION OF PROCEDURE:Informed written consent | | obtained from the patient after explaining the procedure, risks and alternatives. | | Patient understood the discussion and expressed his wish to proceed. The appropriate | | side and site was labeled and initialed as an independent process antecedent to the | | imaging and intervention, as per protocol at this institution. Patient was placed | | supine on the x-ray table. Left arm was prepped in the usual sterile fashion. Site for | | access into the graft localized close to the left cubital fossa. Skin and subcutaneous | | tissues infiltrated with 1% lidocaine. Graft was accessed using Micropuncture needle | | and exchanged for 6-Libyan short sheath over 0.035 angled Glidewire. Using combination | | of 4-Libyan angled [place] catheter and 0.035 angled Glidewire, it was negotiated past the | | venous anastomosis to adjacent distal left cephalic vein. Injection of contrast | | revealed preocclusive stenosis of the proximal and distal anastomoses of the | | interposition graft in the left cephalic vein and thrombosis of the proximal left | | cephalic vein. Subsequently, 0.035 angled Glidewire was negotiated with its tip in the | | upper right atrium. A 7 mm x 4 cm balloon was advanced over the wire and angioplasty of | | the venous anastomosis of the interposition graft performed. During inflation the | | balloon, pressure was applied at arterial anastomosis and 4 mg of tPA mixed with 1 mL of | | contrast for total of 3 mL volume injected into the thrombosed graft. Subsequently, | | balloon was deflated and balloon angioplasty of the venous anastomosis performed | | Subsequently, balloon was removed over the wire and percutaneous mechanical thrombectomy | | of the thrombosed graft performed using Trerotola thrombectomy device. Subsequently, | | Trerotola device was removed and macerated clot was aspirated using a 6-Libyan dilator | | through the 6-Libyan sheath. Additionally, balloon maceration or thrombus performed | | using 7 mm x 4 cm catheter. Subsequently, injection of contrast revealed persistent | | narrowing at the venous anastomosis. Hence, 7 mm x 4 cm balloon catheter was placed over | | the wire and a repeat angioplasty the venous anastomosis performed. Subsequently, | | injection of contrast revealed resolution of the stenosis in the draining vein and the | | proximal and distal venous anastomoses of the interposition graft. Subsequently, final | | fistulogram obtained and this revealed absence of any hemodynamic significant stenosis | | and normal and patent fistulogram from arterial anastomosis to right atrium. | | Subsequently, final arterial pressure and fistula pressures obtained and all catheters | | and wires were removed. Hemostasis obtained with manual pressure. Patient tolerated | | the procedure well. No procedural complications. FINDINGS:1. Initial left cephalic | | vein revealed thrombosis of the interposition graft and normal patency of the central | | venous system.2. Successful pharmacologic and mechanical thrombectomy of the thrombosed | | left thumb AV fistula with interposition graft in the distal cephalic vein, without | | incident.3. Final fistula pressure: 175/98 mmHg. Arterial pressure: 107/69 mmHg. | | IMPRESSION: Successful declotting of the thrombosed left arm arteriovenous fistula with | | interposition graft using pharmacologic and mechanical thrombectomy devices with good | | anatomic results and hemodynamic results. 98649, 63306, 48084, 84084 Electronically | | signed by Ziyad Russ MD on 12/16/2013 3:20 PM | + + documented in this encounter Visit Diagnoses + + | Diagnosis | + + | Clotted dialysis access, subsequent encounter (HCC) | + + documented in this encounter"
--- OUTSIDE RECORDS SUMMARY | ~2019-05-09 | XMS | Encounter Summary ---
Demographics + + + | Address | [address] | | | [place] [address] | + + + | Home Phone | | + + + | Preferred Language | Unknown | + + + | Marital Status | Single | + + + | Yazidi Affiliation | Unknown | + + + | Race | Black or | + + + | Ethnic Group | Not or | + + + Author + + + | Author | [facility] | + + + | Organization | [facility] | + + + | Address | Unknown | + + + | Phone | Unavailable | + + + Support + + +---------+ + | Name | Relationship | Address | Phone | + + +---------+ + | Olesya Lamb | ECON | Unknown | | + + +---------+ + Care Team Providers + +------+ + | Care Safety Lamp Keeper Name | Role | Phone | + +------+ + | Oziel Michael MD | PCP | | + +------+ + Encounter Details +--------+ + + + + | Date | Type | Department | Care Team | Description | +--------+ + + + + | 02/23/ | Lab | LAB [facility]MM[facility]ENET[facility] | | | | 2015 | Requisition | [facility] | | | | | | [address] | | | | | | [place], | | | | | | [place] [address] | | | +--------+ + + + [...] FLOW HLA II AB | Routin | 02/24/2016 | | | | AG ID, BLOOD | e | 1:44 PM | | | | | | PDT | | | + +--------+ + + + | LIT FLOW HLA I AB AG | Routin | 02/24/2016 | | Results for this | | ID, BLOOD | e | 1:44 PM | | procedure are in the | | | | PDT | | results section. | + +--------+ + + + documented in this encounter Results LIT FLOW HLA II AB AG ID, BLOOD (02/24/2016 1:44 PM PDT) + + | Specimen | + + | Blood - Blood | | (substance) | + + + + + + + | Performing | Address | City/State/Zipcode | Phone Number | | Organization | | | | + + + + + | [facility] - | [address] | [place] [address] | | | IMMUNOGENETICS/TRANS | [address] | | | | [facility] | | | | + + + + + LIT FLOW HLA I AB AG ID, BLOOD (02/24/2016 1:44 PM PDT) + + + + + [...] [facility] - | [address] | [place] [address] | | | IMMUNOGENETICS/TRANS | [address] | | | | [facility] | | | | + + + + + documented in this encounter Visit Diagnoses Not on filedocumented in this encounter"
--- OUTSIDE RECORDS SUMMARY | ~2019-05-09 | XMS | Encounter Summary ---
Demographics + + + | Address | [address] | | | [place] [address] | + + + | Home Phone | | + + + | Preferred Language | Unknown | + + + | Marital Status | Single | + + + | Latter-Day Affiliation | Unknown | + + + | Race | Black or | + + + | Ethnic Group | Not or | + + + Author + + + | Author | [facility] | + + + | [...] Team Providers + +------+ + | Care Government Affairs Fellow Name | Role | Phone | + [...] | | | | | [address] [place], | | | | | | [place] [address] | | | +--------+ + + + [...] [facility] - | [address] | [place] [address] | | | IMMUNOGENETICS/TRANS | [address] | | | | [facility] | | | | + + + + + documented in this encounter Visit Diagnoses Not on filedocumented in this encounter"
--- OUTSIDE RECORDS SUMMARY | ~2019-05-09 | XMS | Encounter Summary ---
Demographics + + + | Address | [address] | | | [place] [address] | + + + | Home Phone | | + + + | Preferred Language | Unknown | + + + | Marital Status | Single | + + + | Quaker Affiliation | Unknown | + + + | Race | Black or | + + + | Ethnic Group | Not or | + + + Author + + + | Author | [facility] | + + + | Organization | [facility] | + + + | Address | Unknown | + + + | Phone | Unavailable | + + + Support + + +---------+ + | Name | Relationship | Address | Phone | + + +---------+ + | Olesya Lamb | ECON | Unknown | | + + +---------+ + Care Team Providers + +------+ + | Care Meat Dresser Name | Role | Phone | + +------+ + | Oziel Michael MD | PCP | | + +------+ + Encounter Details +--------+ + + + + | Date | Type | Department | Care Team | Description | +--------+ + + + + | 01/23/ | Ancillary | LAB IMMUNOGENETIC | | | | 2012 | Orders | [facility] LAB | | | | | | [address] | | | | | | [place], | | | | | | [place] [address] | | | +--------+ + + + [...] FLOW HLA AB PRA | Routin | 01/23/2013 | | | | SCREEN I/II | e | 2:21 PM | | | | | | PDT | | | + +--------+ + + + documented in this encounter Results LIT FLOW HLA AB PRA SCREEN I/II (01/23/2013 2:21 PM PDT) + + | Specimen | + + | Blood - Blood | + + + + + + + | Performing | Address | City/State/Zipcode | Phone Number | | Organization | | | | + + + + + | [facility] - | [address] | [place] [address] | | | IMMUNOGENETICS/TRANS | [address] | | | | [facility] | | | | + + + + + documented in this encounter Visit Diagnoses Not on filedocumented in this encounter"
--- OUTSIDE RECORDS SUMMARY | ~2019-05-09 | XMS | Encounter Summary ---
Demographics + + + | Address | [address] | | | [place] [address] | + + + | Home Phone | | + + + | Preferred Language | Unknown | + + + | Marital Status | Single | + + + | Taoist Affiliation | Unknown | + + + | Race | Black or | + + + | Ethnic Group | Not or | + + + Author + + + | Author | [facility] | + + + | Organization | [facility] | + + + | Address | Unknown | + + + | Phone | Unavailable | + + + Support + + +---------+ + | Name | Relationship | Address | Phone | + + +---------+ + | Olesya Lamb | ECON | Unknown | | + + +---------+ + Care Team Providers + +------+ + | Care Director Of Residential Services Name | Role | Phone | + +------+ + | Oziel Michael MD | PCP | | + +------+ + Encounter Details +--------+ + + + + | Date | Type | Department | Care Team | Description | +--------+ + + + + | 03/27/ | Ancillary | LAB IMMUNOGENETIC | | | | 2011 | Orders | [facility]PL[facility] LAB | | | | | | [address] | | | | | | [place], | | | | | | [place] [address] | | | +--------+ + + + [...] + +--------+ + + + | LIT SERA PRE-TX | Routin | 03/27/2012 | End stage renal | | | W/INHIBITORS | e | 2:27 PM | disease [ICD-9-CM] | | | | | PST | | | + +--------+ + + + | LIT FLOW HLA AB | Routin | 03/27/2012 | End stage renal | | | QUICK SCREEN I/II | e | 2:27 PM | disease [ICD-9-CM] | | | | | PST | | | + +--------+ + + + documented in this encounter Results LIT SERA PRE-TX W/INHIBITORS (03/27/2012 2:27 PM PST) + + | Specimen | + + | Blood - Blood | + + + + + + + | Performing | Address | City/State/Zipcode | Phone Number | | Organization | | | | + + + + + | [facility] - | [address] | [place] [address] | | | IMMUNOGENETICS/TRANS | [address] | | | | [facility] | | | | + + + + + LIT FLOW HLA AB QUICK SCREEN I/II (03/27/2012 2:27 PM PST) + + | Specimen | + + | Blood - Blood | + + + + + + + | Performing | Address | City/State/Zipcode | Phone Number | | Organization | | | | + + + + + | [facility] - | [address] | [place] [address] | | | IMMUNOGENETICS/TRANS | [address] | | | | [facility] | | | | + + + + + documented in this encounter Visit Diagnoses + + | Diagnosis | + + | End stage renal disease (HCC) End stage renal disease | + + documented in this encounter"
--- OUTSIDE RECORDS SUMMARY | ~2019-05-09 | XMS | Encounter Summary ---
Demographics + + + | Address | [address] | | | [place] [address] | + + + | Home Phone [...] Author + + + | Author | [facility] | + + + | Organization [...] Team Providers + +------+ + | Care Labor Representative Name | Role | Phone | + +------+ + | Oziel Michael MD | PCP | | + +------+ + Encounter Details +--------+ + + + + | Date | Type | Department | Care Team | Description | +--------+ + + + + | 05/22/ | Ancillary | LAB IMMUNOGENETIC | | | | 2013 | Orders | [facility]PL[facility] LAB | | | | | | [address] | | | | | | [place], | | | | | | [place] [address] | | | +--------+ + + + [...] FLOW HLA AB PRA | Routin | 05/22/2013 | | | | SCREEN I/II | e | 2:16 PM | | | | | | PST | | | + +--------+ + + + documented in this encounter Results LIT FLOW HLA AB PRA SCREEN I/II (05/22/2013 2:16 PM PST) + + | Specimen | + + | Blood - Blood | + + + + + + + | Performing | Address | City/State/Zipcode | Phone Number | | Organization | | | | + + + + + | [facility] - | [address] | [place] [address] | | | IMMUNOGENETICS/TRANS | [address] | | | | [facility] | | | | + + + + + documented in this encounter Visit Diagnoses Not on filedocumented in this encounter"
--- OUTSIDE RECORDS SUMMARY | ~2019-05-09 | XMS | Encounter Summary ---
Demographics + + + | Address | [address] | | | [place] [address] | + + + | Home Phone | | + + + | Preferred Language | Unknown | + + + | Marital Status | Unknown | + + + | Mosque Affiliation [...] Team Providers + +------+ + | Care Engagement Executive Name | Role | Phone | + +------+ + | Oziel Michael MD | PCP | | + +------+ + Encounter Details +--------+ + + + + | Date | Type | Department | Care Team | Description | +--------+ + + + + | 12/28/ | Orders Only | [facility] | Alexx Gutierrez MD | Chronic kidney | | 2019 | | NEPHROLOGY [place] | [address] [place] | disease, stage III | | | | [address] [place] | [address] [place], [place] | (moderate) (HCC); | | | | [address] [place], [place] | [address] | History of kidney | | | | [address] | | transplant; Other | | | | [phone] | | disorders of | | | | | | phosphorus | | | | | | metabolism; | | | | | | Hypomagnesemia; | | | | | | Hyperuricemia | | | | | | without signs of | | | | | | inflammatory | | | | | | arthritis and | | | | | | tophaceous disease; | | | | | | Essential (primary) | | | | | | hypertension; Other | | | | | | terminal make up operator (current) | | | | | | drug therapy; | | | | | | Persistent | | | | | | proteinuria; | | | | | | Secondary | | | | | | hyperparathyroidism | | | | | | of renal origin | | | | | | (HCC) | +--------+ + + + + Social [...] 2020 | Visit | | [address] [facility] | | | | | | [address] [place] | | | | | | [address] | | | | | | | | +--------+---------+ + + + + +------+--------+ + + | Name | Type | Priori | Associated Diagnoses | Order Schedule | | | | ty | | | + +------+--------+ + + | Basic Metabolic | Lab | Routin | Chronic kidney | Expected: | | Panel | | e | disease, stage III | 04/02/2018, Expires: | | | | | (moderate) (HCC) | 03/29/2019 | | | | | History of kidney | | | | | | transplant Other | | | | | | disorders of | | | | | | phosphorus | | | | | | metabolism | | | | | | Hypomagnesemia | | | | | | Hyperuricemia | | | | | | without signs of | | | | | | inflammatory | | | | | | arthritis and | | | | | | tophaceous disease | | + +------+--------+ + + | Basic Metabolic | Lab | Routin | Essential | Expected: | | Panel | | e | (primary) | 10/21/2018, Expires: | | | | | hypertension Other | 08/22/2019 | | | | | terminal make up operator (current) | | | | | | drug therapy | | | | | | Persistent | | | | | | proteinuria | | | | | | Secondary | | | | | | hyperparathyroidism | | | | | | of renal origin | | | | | | (HCC) | | | | | | Hypomagnesemia | | | | | | History of kidney | | | | | | transplant Chronic | | | | | | kidney disease, | | | | | | stage III (moderate) | | | | | | (HCC) | | + +------+--------+ + + | ALT | Lab | Routin | Chronic kidney | Expected: | | | | e | disease, stage III | 11/27/2018, Expires: | | | | | (moderate) (HCC) | 11/24/2019 | | | | | Essential (primary) | | | | | | hypertension | | | | | | Hypomagnesemia | | | | | | History of kidney | | | | | | transplant Other | | | | | | terminal make up operator (current) | | | | | | drug therapy | | | | | | Secondary | | | | | | hyperparathyroidism | | | | | | of renal origin | | | | | | (HCC) | | + +------+--------+ + + | PSA, Reflex | Lab | Routin | Chronic kidney | Expected: | | | | e | disease, stage III | 11/27/2018, Expires: | | | | | (moderate) (HCC) | 11/24/2019 | | | | | Essential (primary) | | | | | | hypertension | | | | | | Hypomagnesemia | | | | | | History of kidney | | | | | | transplant Other | | | | | | shelter (current) | | | | | | drug therapy | | | | | | Secondary | | | | | | hyperparathyroidism | | | | | | of renal origin | | | | | | (HCC) | | + +------+--------+ + + | Protein/Creatinine | Lab | Routin | Chronic kidney | Expected: | | Ratio, Urine | | e | disease, stage III | 11/27/2018, Expires: | | | | | (moderate) (HCC) | 11/24/2019 | | | | | Essential (primary) | | | | | | hypertension | | | | | | Hypomagnesemia | | | | | | History of kidney | | | | | | transplant Other | | | | | | terminal make up operator (current) | | | | | | drug therapy | | | | | | Secondary | | | | | | hyperparathyroidism | | | | | | of renal origin | | | | | | (HCC) | | + +------+--------+ + + | Tacrolimus ([id number]) | Lab | Routin | Other terminal make up operator | Expected: | | Trough | | e | (current) drug | 12/04/2018, Expires: | | | | | therapy History of | 12/04/2019 | | | | | kidney transplant | | + +------+--------+ + + | Renal Function Panel | Lab | Routin | Other terminal make up operator | Expected: | | | | e | (current) drug | 02/03/2019, Expires: | | | | | therapy History of | 12/04/2019 | | | | | kidney transplant | | | | | | Essential (primary) | | | | | | hypertension | | | | | | Hypomagnesemia | | + +------+--------+ + + | Magnesium | Lab | Routin | Other shelter | Expected: | | | | e | (current) drug | 02/03/2019, Expires: | | | | | therapy History of | 12/04/2019 | | | | | kidney transplant | | | | | | Essential (primary) | | | | | | hypertension | | | | | | Hypomagnesemia | | + +------+--------+ + + | CBC with | Lab | Routin | Other terminal make up operator | Expected: | | Differential | | e | (current) drug | 02/03/2019, Expires: | | | | | therapy History of | 12/04/2019 | | | | | kidney transplant | | | | | | Essential (primary) | | | | | | hypertension | | | | | | Hypomagnesemia | | + +------+--------+ + + | ALT | Lab | Routin | Other terminal make up operator | Expected: | | | | e | (current) drug | 02/03/2019, Expires: | | | | | therapy History of | 12/04/2019 | | | | | kidney transplant | | | | | | Essential (primary) | | | | | | hypertension | | | | | | Hypomagnesemia | | + +------+--------+ + + | AST | Lab | Routin | Other terminal make up operator | Expected: | | | | e | (current) drug | 02/03/2019, Expires: | | | | | therapy History of | 12/04/2019 | | | | | kidney transplant | | | | | | Essential (primary) | | | | | | hypertension | | | | | | Hypomagnesemia | | + +------+--------+ + + | CK Total | Lab | Routin | Other terminal make up operator | Expected: | | | | e | (current) drug | 02/03/2019, Expires: | | | | | therapy History of | 12/04/2019 | | | | | kidney transplant | | | | | | Essential (primary) | | | | | | hypertension | | | | | | Hypomagnesemia | | + +------+--------+ + + | Tacrolimus ([id number]) | Lab | Routin | Other shelter | Expected: | | Trough | | e | (current) drug | 02/03/2019, Expires: | | | | | therapy History of | 12/04/2019 | | | | | kidney transplant | | | | | | Essential (primary) | | | | | | hypertension | | | | | | Hypomagnesemia | | + +------+--------+ + + | Urinalysis with | Lab | Routin | Other shelter | Expected: | | Microscopic if | | e | (current) drug | 02/03/2019, Expires: | | Indicated | | | therapy History of | 12/04/2019 | | | | | kidney transplant | | | | | | Essential (primary) | | | | | | hypertension | | | | | | Hypomagnesemia | | + +------+--------+ + + | Protein/Creatinine | Lab | Routin | Other shelter | Expected: | | Ratio, Urine | | e | (current) drug | 02/03/2019, Expires: | | | | | therapy History of | 12/04/2019 | | | | | kidney transplant | | | | | | Essential (primary) | | | | | | hypertension | | | | | | Hypomagnesemia | | + +------+--------+ + + documented as of this encounter Visit Diagnoses + + | Diagnosis | + + | Chronic kidney disease, stage III (moderate) (HCC) Chronic kidney disease, Stage III | | (moderate) | + + | History of kidney transplant Kidney replaced by transplant | + + | Other disorders of phosphorus metabolism | + + | Hypomagnesemia Disorders of magnesium metabolism | + + | Hyperuricemia without signs of inflammatory arthritis and tophaceous disease Other | | abnormal blood chemistry | + + | Essential (primary) hypertension Unspecified essential hypertension | + + | Other terminal make up operator (current) drug therapy | + + | Persistent proteinuria Proteinuria | + + | Secondary hyperparathyroidism of renal origin (HCC) Secondary hyperparathyroidism (of | | renal origin) | + + documented in this encounter"
--- OUTSIDE RECORDS SUMMARY | ~2019-05-09 | XMS | Encounter Summary ---
Demographics + + + | Address | [address] | | | [place] [address] | + + + | Home Phone | | + + + | Preferred Language | Unknown | + + + | Marital Status | Single | + + + | Jewish Affiliation | Unknown | + + + | Race | Black or | + + + | Ethnic Group | Not or | + + + Author + + + | Author | [facility] | + + + | Organization [...] Team Providers + +------+ + | Care Plastics Plater Name | Role | Phone | + [...] | | | | | [address] [place], | | | | | | [place] [address] | | | +--------+ + + + [...] FLOW HLA AB PRA | Routin | 02/20/2013 | | | | SCREEN I/II | e | 3:10 PM | | | | | | PDT | | | + +--------+ + + + documented in this encounter Results LIT FLOW HLA AB PRA SCREEN I/II (02/20/2013 3:10 PM PDT) + + | Specimen | + + | Blood - Blood | + + + + + + + | Performing | Address | City/State/Zipcode | Phone Number | | Organization | | | | + + + + + | [facility] - | [address] | [place] [address] | | | IMMUNOGENETICS/TRANS | [address] | | | | [facility] LAB[facility]ORY | | | | + + + + + documented in this encounter Visit Diagnoses Not on filedocumented in this encounter"
--- OUTSIDE RECORDS SUMMARY | ~2019-05-09 | XMS | Encounter Summary ---
Demographics + + + | Address | [address] | | | [place] [address] | + + + | Home Phone | | + + + | Preferred Language | Unknown | + + + | Marital Status | Unknown | + + + | Scientology Affiliation | Unknown | + + + | Race | Unknown | + + + | Ethnic Group | Unknown | + + + Author + + + | Author | [facility] | | | and [place] | + + + | Organization | [facility] | | [...] Team Providers + +------+ + | Care Suspect Artist Supervisor Name | Role | Phone | + +------+ + | Oziel Michael MD | PCP | | + +------+ + Encounter Details +--------+ + + + + | Date | Type | Department | Care Team | Description | +--------+ + + + + | 06/28/ | Orders Only | [facility] | Alexx Gutierrez MD | | | 2017 | | NEPHROLOGY [place] | [address] [place] | | | | | [address] [place] | [address] [place], [place] | | | | | [address] [place], [place] | [address] | | | | | [address] | | | | | | [phone] | | | +--------+ + + + [...] | | | | | | [address] [place] | | | | | | [address] | | | | | | | | +--------+---------+ + + + documented as of this encounter Procedures + +--------+ + + + | Procedure Name | Priori | Date/Time | Associated Diagnosis | Comments | | | ty | | | | + +--------+ + + + | EXTERNAL LAB: | Routin | 06/28/2017 | | Results for this | | TACROLIMUS LEVEL, | e | 7:45 AM | | procedure are in the | | LC-MS/MS | | PST | | results section. | + +--------+ + + + | EXTERNAL LAB: CBC | Routin | 06/28/2017 | | Results for this | | | e | 7:45 AM | | procedure are in the | | | | PST | | results section. | + +--------+ + + + | URINALYSIS WITH | Routin | 06/28/2017 | | Results for this | | MICROSCOPIC IF | e | 7:45 AM | | procedure are in the | | INDICATED | | PST | | results section. | + +--------+ + + + | ALT | Routin | 06/28/2017 | | Results for this | | | e | 7:45 AM | | procedure are in the | | | | PST | | results section. | + +--------+ + + + | PROTEIN/CREATININE | Routin | 06/28/2017 | | Results for this | | RATIO, URINE | e | 7:45 AM | | procedure are in the | | | | PST | | results section. | + +--------+ + + + | AST | Routin | 06/28/2017 | | Results for this | | | e | 7:45 AM | | procedure are in the | | | | PST | | results section. | + +--------+ + + + | PARATHYROID HORMONE, | Routin | 06/28/2017 | | Results for this | | INTACT | e | 7:45 AM | | procedure are in the | | | | PST | | results section. | + +--------+ + + + | MAGNESIUM | Routin | 06/28/2017 | | Results for this | | | e | 7:45 AM | | procedure are in the | | | | PST | | results section. | + +--------+ + + + | CK TOTAL | Routin | 06/28/2017 | | Results for this | | | e | 7:45 AM | | procedure are in the | | | | PST | | results section. | + +--------+ + + + | RENAL FUNCTION PANEL | Routin | 06/28/2017 | | Results for this | | | e | 7:45 AM | | procedure are in the | | | | PST | | results section. | + +--------+ + + + documented in this encounter Results External Lab: Tacrolimus Level, LC-MS/MS (06/28/2017 7:45 AM PST) + +-------+ + + + | Component | Value | Ref Range | Performed | Pathologist | | | | | At | Signature | + +-------+ + + + | Tacrolimus | 7.5 | | EXTERNAL | | | Level [...] + +---------+ + + Protein/Creatinine Ratio, Urine (06/28/2017 7:45 AM PST) + + + + + + | Component | Value | Ref Range | Performed | Pathologist | | | | | At | Signature | + + + + + + | Protein/Cre | 205.5 (A) | 0 - 150 | EXTERNAL [...] + + Urinalysis with Microscopic if Indicated (06/28/2017 7:45 AM PST) + + + + + [...] + + + | Spec Grav, | 1.023 | 1.005 - 1.030 | EXTERNAL | [...] + + + + | Total | Negative | | EXTERNAL | | | Protein [...] + +---------+ + + External Lab: CBC (06/28/2017 7:45 AM PST) + + + + + + | Component | Value | Ref Range | Performed | Pathologist | | | | | At | Signature | + + + + + + | WBC | 5.1 | 4.5 - 11.0 10 | EXTERNAL | | | | | | LAB | | + + + + + + | RED CELL | 4.66 | 4.3 - 5.7 10 | EXTERNAL | | | COUNT | | | LAB | | + + + + + + | Hgb | 13.7 | 13.5 - 18.0 | EXTERNAL | | | | | g/dL | LAB | | + + + + + + | Hematocrit, | 41.5 | 41 - 50 % | EXTERNAL | | | POC | | | LAB | | + + + + + + | MCV | 89.2 | 81 - 99 fL | EXTERNAL [...] + + + + | Platelet | 194 | 140 - 440 K/ L | EXTERNAL | | | Count | | | LAB | | | Plasma | | | | | + + + + + + | RDW-CV | 15.2 (A) | 10.5 - 15.0 % | [...] | | + +---------+ + + ALT (06/28/2017 7:45 AM PST) + +-------+ + + + [...] | | + +---------+ + + AST (06/28/2017 7:45 AM PST) + +--------+ + + + | Component | Value | Ref Range | Performed | Pathologist | | | | | At | Signature | + +--------+ + + + | AST | 12 (A) | 13 - 39 U/L | [...] + +---------+ + + Parathyroid Hormone, Intact (06/28/2017 7:45 AM PST) + + + + + + | Component | Value | Ref Range | Performed | Pathologist | | | | | At | Signature | + + + + + + | PTH INTACT | 162.4 (A) | 15 - 65 pg/mL | [...] | | + +---------+ + + Magnesium (06/28/2017 7:45 AM PST) + +---------+ + + + [...] | + +---------+ + + CK Total (06/28/2017 7:45 AM PST) + +---------+ + + + | Component | Value | Ref Range | Performed | Pathologist | | | | | At | Signature | + +---------+ + + + | CK, Total | 243 (A) | 24 - 195 U/L | [...] + +---------+ + + Renal Function Panel (06/28/2017 7:45 AM PST) + + + + + + | Component | Value | Ref Range | Performed | Pathologist | | | | | At | Signature | + + + + + + | Glucose, | 139 (A) | 70 - 100 mg/dL | EXTERNAL | | | Fasting | | | LAB | | + + + + + + | BUN | 22 | 6 - 23 mg/dL | EXTERNAL | | | | | | LAB | | + + + + + + | Creatinine | 1.53 (A) | 0.7 - 1.33 | EXTERNAL | | | | | mg/dL | LAB | | + + + + + + | PHOSPHORUS | | mg/dL | EXTERNAL | | | | | | LAB | | + + + + + + | Albumin | 4 | 3.5 - 5.0 | EXTERNAL | | | | | | LAB | | + + + + + + | Na | 143 | 132 - 143 | EXTERNAL | [...] | | | LAB | | | [facility] | | | | | + + + + + + | Phosphorus, | 3.5 | 2.5 - 5.0 | EXTERNAL | | | Inorganic | | | LAB | | + + + + + + | BUN/Creatin | 14.4 | 6.0 - 28.6 | EXTERNAL | | | ine Ratio | | | LAB | | + + + + + + | Calcium | 8.8 | 8.4 - 10.2 | EXTERNAL | | | | | mg/dL | LAB | | + + + + + + | Estimated | 47 (A) | 60 mg/dL | EXTERNAL | [...]
--- OUTSIDE RECORDS SUMMARY | ~2019-05-09 | XMS | Encounter Summary ---
Demographics + + + | Address | [address] | | | [place] [address] | + + + | Home Phone [...] + + | Author | [facility] | + + + | Organization | [facility] | + + + | Address | Unknown | + + + | Phone | Unavailable | + + + Support + + +---------+ + | Name | Relationship | Address | Phone | + + +---------+ + | Olesya Lamb | ECON | Unknown | | + + +---------+ + Care Team Providers + +------+ + | Care Local Government Legislator Name | Role | Phone | + +------+ + | Oziel Michael MD | PCP | | + +------+ + Encounter Details +--------+ + + + + | Date | Type | Department | Care Team | Description | +--------+ + + + + | 02/17/ | Lab | LAB IMMUNOGENETIC | | | | 2014 | Requisition | AND TRANSPLANT LAB | | | | | | [address] | | | | | | [address] [place], | | | | | | [place] [address] | | | +--------+ + + + [...] FLOW HLA AB PRA | Routin | 02/17/2015 | | | | SCREEN I/II | e | 3:04 PM | | | | | | PDT | | | + +--------+ + + + documented in this encounter Results LIT FLOW HLA AB PRA SCREEN I/II (02/17/2015 3:04 PM PDT) + + | Specimen | + + | Blood - Blood | | (substance) | + + + + + + + | Performing | Address | City/State/Zipcode | Phone Number | | Organization | | | | + + + + + | [facility] - | [address] | [place] [address] | | | IMMUNOGENETICS/TRANS | [address] | | | | [facility] | | | | + + + + + documented in this encounter Visit Diagnoses Not on filedocumented in this encounter"
--- OUTSIDE RECORDS SUMMARY | ~2019-05-09 | XMS | Encounter Summary ---
Demographics + + + | Address | [address] | | | [place] [address] | + + + | Home Phone [...] Team Providers + +------+ + | Care Household Worker Name | Role | Phone | + +------+ + PCP | Unavailable | + +------+ + Encounter Details +--------+ + + + + | Date | Type | Department | Care Team | Description | +--------+ + + + + | 08/07/ | Orders Only | [facility] | Conversion | | | 2018 | | NEPHROLOGY [place] | Transaction, | | | | | [address] | Provider Unknown | | | | | [address] [place], [place] | | | | | | [phone] | (Fax) | | | | | [phone] | | | +--------+ + + + [...] 2019 | Visit | | [address] [facility] | | | | | | [address] [place], [place] | | | | | | [address] | | | | | | | | +--------+---------+ + + + documented as of this encounter Procedures + +--------+ + + + | Procedure Name | Priori | Date/Time | Associated Diagnosis | Comments | | | ty | | | | + +--------+ + + + | EXTERNAL LAB: | Routin | 08/07/2018 | | Results for this | | TACROLIMUS LEVEL, | e | 9:43 AM | | procedure are in the | | LC-MS/MS | | PDT | | results section. | + +--------+ + + + | URINALYSIS, | Routin | 08/07/2018 | | Results for this | | MICROSCOPIC ONLY | e | 9:43 AM | | procedure are in the | | | | PDT | | results section. | + +--------+ + + + | MAGNESIUM | Routin | 08/07/2018 | | Results for this | | | e | 9:43 AM | | procedure are in the | | | | PDT | | results section. | + +--------+ + + + documented in this encounter Results External Lab: Tacrolimus Level, LC-MS/MS (08/07/2018 9:43 AM PDT) + +-------+ + + + [...] + +---------+ + + Urinalysis, Microscopic Only (08/07/2018 9:43 AM PDT) + + + [...] + + + + | Specific | 1.016 | 1.005 - 1.030 | EXTERNAL | | | [place] | | | LAB | | + [...] + + + | Protein, | TraceComment: >300 | | EXTERNAL | | | Urine [...] | | + +---------+ + + Magnesium (08/07/2018 9:43 AM PDT) + +---------+ + + + [...]
--- OUTSIDE RECORDS SUMMARY | ~2019-05-09 | XMS | Encounter Summary ---
Demographics + + + | Address | [address] | | | [place] [address] | + + + | Home Phone [...] + + | Author | [facility] | + + + | Organization | [facility] | + + + | Address | Unknown | + + + | Phone | Unavailable | + + + Support + + +---------+ + | Name | Relationship | Address | Phone | + + +---------+ + | Olesya Lamb | ECON | Unknown | | + + +---------+ + Care Team Providers + +------+ + | Care Cattle Driver Name | Role | Phone | + +------+ + | Oziel Michael MD | PCP | | + +------+ + Encounter Details +--------+ + + + + | Date | Type | Department | Care Team | Description | +--------+ + + + + | 12/20/ | Ancillary | LAB IMMUN[facility]ENETIC | | | | 2012 | Orders | [facility] | | | | | | [address] | | | | | | [place], | | | | | | [place] [address] | | | +--------+ + + + [...] Not on filedocumented as of this encounter Visit Diagnoses Not on filedocumented in this encounter"
--- OUTSIDE RECORDS SUMMARY | ~2019-05-09 | XMS | Encounter Summary ---
Demographics + + + | Address | [address] | | | [place] [address] | + + + | Home Phone | | + + + | Preferred Language | Unknown | + + + | Marital Status | Unknown | + + + | Confucianist Affiliation | Unknown | + + + | Race | Unknown | + + + | Ethnic Group | Unknown | + + + Author + + + | Author | [facility] | | | and [place] | + + + | Organization | [facility] | | [...] Team Providers + +------+ + | Care Credit Risk Management Director Name | Role | Phone | + +------+ + | Oziel Michael MD | PCP | | + +------+ + Encounter Details +--------+ + + + + | Date | Type | Department | Care Team | Description | +--------+ + + + + | 01/04/ | Orders Only | [facility] | Alexx Gutierrez MD | | | 2017 | | NEPHROLOGY [place] | [address] [place] | | | | | [address] [place] | [address] [place], [place] | | | | | [address] [place], [place] | [address] | | | | | [address] | | | | | | [phone] | | | +--------+ + + + [...] | | | | | | [address] [place] | | | | | | [address] | | | | | | | | +--------+---------+ + + + documented as of this encounter Procedures + +--------+ + + + | Procedure Name | Priori | Date/Time | Associated Diagnosis | Comments | | | ty | | | | + +--------+ + + + | EXTERNAL LAB: CBC | Routin | 01/04/2018 | | Results for this | | | e | 7:20 AM | | procedure are in the | | | | PDT | | results section. | + +--------+ + + + | URINALYSIS WITH | Routin | 01/04/2018 | | Results for this | | MICROSCOPIC IF | e | 7:20 AM | | procedure are in the | | INDICATED | | PDT | | results section. | + +--------+ + + + | ALT | Routin | 01/04/2018 | | Results for this | | | e | 7:20 AM | | procedure are in the | | | | PDT | | results section. | + +--------+ + + + | VITAMIN D, | Routin | 01/04/2018 | | Results for this | | DEFICIENCY SCREEN | e | 7:20 AM | | procedure are in the | | (25-HYDROXY) | | PDT | | results section. | + +--------+ + + + | AST | Routin | 01/04/2018 | | Results for this | | | e | 7:20 AM | | procedure are in the | | | | PDT | | results section. | + +--------+ + + + | PARATHYROID HORMONE, | Routin | 01/04/2018 | | Results for this | | INTACT | e | 7:20 AM | | procedure are in the | | | | PDT | | results section. | + +--------+ + + + | MAGNESIUM | Routin | 01/04/2018 | | Results for this | | | e | 7:20 AM | | procedure are in the | | | | PDT | | results section. | + +--------+ + + + | RENAL FUNCTION PANEL | Routin | 01/04/2018 | | Results for this | | | e | 7:20 AM | | procedure are in the | | | | PDT | | results section. | + +--------+ + + + documented in this encounter Results Vitamin D, Deficiency Screen (25-Hydroxy) (01/04/2018 7:20 AM PDT) + +-------+ + + + | Component | Value | Ref Range | Performed | Pathologist | | | | | At | Signature | + +-------+ + + + | Vit D, | 36 | 30 - 100 | EXTERNAL | | | 25-Hydroxy | | | LAB | | + [...] + + Urinalysis with Microscopic if Indicated (01/04/2018 7:20 AM PDT) + + + + + [...] + + + + | Total | >300 | | EXTERNAL | | | Protein [...] + +---------+ + + External Lab: CBC (01/04/2018 7:20 AM PDT) + + + + + + | Component | Value | Ref Range | Performed | Pathologist | | | | | At | Signature | + + + + + + | WBC | 5.2 | 4.5 - 11.0 10 | EXTERNAL | | | | | | LAB | | + + + + + + | RED CELL | 4.95 | 4.3 - 5.7 10 | EXTERNAL | | | COUNT | | | LAB | | + + + + + + | Hgb | 13.8 | 13.5 - 18.0 | EXTERNAL | | | | | g/dL | LAB | | + + + + + + | Hematocrit, | 43.3 | 41 - 50 % | EXTERNAL [...] + + + + | Platelet | 198 | 140 - 440 K/ L | [...] | | + +---------+ + + ALT (01/04/2018 7:20 AM PDT) + +-------+ + + + | Component | Value | Ref Range | Performed | Pathologist | | | | | At | Signature | + +-------+ + + + | ALT | 14 | 7 - 52 U/L | EXTERNAL [...] | | + +---------+ + + AST (01/04/2018 7:20 AM PDT) + +-------+ + + + | Component | Value | Ref Range | Performed | Pathologist | | | | | At | Signature | + +-------+ + + + | AST | 14 | 13 - 39 U/L | EXTERNAL [...] + +---------+ + + Parathyroid Hormone, Intact (01/04/2018 7:20 AM PDT) + + + + + + | Component | Value | Ref Range | Performed | Pathologist | | | | | At | Signature | + + + + + + | PTH INTACT | 135.8 (A) | 15 - 65 pg/mL | [...] | | + +---------+ + + Magnesium (01/04/2018 7:20 AM PDT) + +---------+ + + + [...] + +---------+ + + Renal Function Panel (01/04/2018 7:20 AM PDT) + + + + + + | Component | Value | Ref Range | Performed | Pathologist | | | | | At | Signature | + + + + + + | Glucose, | 144 (A) | 70 - 100 mg/dL | EXTERNAL | | | Fasting | | | LAB | | + + + + + + | BUN | 32 (A) | 6 - 23 mg/dL | EXTERNAL | | | | | | LAB | | + + + + + + | Creatinine | 1.75 (A) | 0.7 - 1.33 | EXTERNAL | | | | | mg/dL | LAB | | + + + + + + | PHOSPHORUS | 3.5 | 2.5 - 5.0 mg/dL | EXTERNAL | | | | | | LAB | | + + + + + + | Albumin | 3.8 | 3.5 - 5.0 | EXTERNAL | | | | | | LAB | | + + + + + + | Na | 141 | 132 - 143 | EXTERNAL | [...] + + + | Anion Gap | 19.2 | 7 - 21 mmol/L | EXTERNAL | | | | | | LAB | | + + + + + + | eGFR if not | | | EXTERNAL | | | | | | LAB | | | SPANISH | | | | | + + + + + + | Phosphorus, | | | EXTERNAL | | | Inorganic | | | LAB | | + + + + + + | BUN/Creatin | 18.3 | 6.0 - 28.6 | EXTERNAL | | | ine Ratio | | | LAB | | + + + + + + | Calcium | 8.9 | 8.5 - 10.3 | EXTERNAL | | | | | mg/dL | LAB | | + + + + + + | Estimated | 40 (A) | 60 mg/dL | EXTERNAL | [...]
--- OUTSIDE RECORDS SUMMARY | ~2019-05-09 | XMS | Encounter Summary ---
Demographics + + + | Address | [address] | | | [place] [address] | + + + | Home Phone | | + + + | Preferred Language | Unknown | + + + | Marital Status | Single | + + + | Sabianism Affiliation | Unknown | + + + | Race | Black or | + + + | Ethnic Group | Not or | + + + Author + + + | Author | [facility] | + + + | Organization | [facility] | + + + | Address | Unknown | + + + | Phone | Unavailable | + + + Support + + +---------+ + | Name | Relationship | Address | Phone | + + +---------+ + | Olesya Lamb | ECON | Unknown | | + + +---------+ + Care Team Providers + +------+ + | Care Slitter Scorer Name | Role | Phone | + +------+ + | Oziel Michael MD | PCP | | + +------+ + Encounter Details +--------+ + + + + | Date | Type | Department | Care Team | Description | +--------+ + + + + | 09/17/ | Lab | LAB IMMUNOGENETIC | Ilia Saleh, | | | 2015 | Requisition | [facility] | | | | | | [address] | | | | | | [place], | | | | | | [place] [address] | | | +--------+ + + + [...] FLOW HLA II AB | Routin | 09/18/2015 | End stage renal | | | AG ID, BLOOD | e | 11:26 AM | disease (HCC) | | | | | PDT | | | + +--------+ + + + | LIT FLOW HLA I AB AG | Routin | 09/18/2015 | End stage renal | Results for this | | ID, BLOOD | e | 11:26 AM | disease (HCC) | procedure are in the | | | | PDT | | results section. | + +--------+ + + + documented in this encounter Results LIT FLOW HLA II AB AG ID, BLOOD (09/18/2015 11:26 AM PDT) + + | Specimen | + + | Blood - Blood | | (substance) | + + + + + + + | Performing | Address | City/State/Zipcode | Phone Number | | Organization | | | | + + + + + | [facility] - | [address] | [place] [address] | | | IMMUNOGENETICS/TRANS | [address] | | | | [facility] | | | | + + + + + LIT FLOW HLA I AB AG ID, BLOOD (09/18/2015 11:26 AM PDT) + + + + + [...] + | [facility] - | [address], | [place] [address] | | | IMMUNOGENETICS/TRANS | [address] | | | | [facility] | | | | + + + + + documented in this encounter Visit Diagnoses + + | Diagnosis | + + | End stage renal disease (HCC) End stage renal disease | + + documented in this encounter"
--- OUTSIDE RECORDS SUMMARY | ~2019-05-09 | XMS | Encounter Summary ---
Demographics + + + | Address | [address] | | | [place] [address] | + + + | Home Phone [...] + + + | Author | [facility] | | | and [place] | + + + | Organization | [facility] | | [...] Team Providers + +------+ + | Care Associate Professor Of Psychology Name | Role | Phone | + +------+ + | Oziel Michael MD | PCP | | + +------+ + Encounter Details +--------+ + + + + | Date | Type | Department | Care Team | Description | +--------+ + + + + | 07/25/ | Orders Only | [facility] | Conversion | | | 2016 | | NEPHROLOGY [place] | Transaction, | | | | | [address] | Provider Unknown | | | | | [address] [place], [place] | | | | | | [address] | (Fax) | | | | | [phone] | | | +--------+ + + + [...] 2019 | Visit | | [address] [facility] | | | | | | [address] [place], [place] | | | | | | [address] | | | | | | | [...] - 1.030 | EXTERNAL | | | [place] | | | LAB | | + [...] | | | LAB | | | [place] | | | | | + + [...]
--- OUTSIDE RECORDS SUMMARY | ~2019-05-09 | XMS | Encounter Summary ---
Demographics + + + | Address | [address] | | | [place] [address] | + + + | Home Phone [...] + + + | Author | [facility] | + + + | [...] Team Providers + +------+ + | Care Mold Shaker Name | Role | Phone | + +------+ + | Oziel Michael MD | PCP | | + +------+ + Encounter Details +--------+ + + + + | Date | Type | Department | Care Team | Description | +--------+ + + + + | 06/20/ | Ancillary | LAB IMMUNOGENETIC | | | | 2014 | Orders | [facility] | | | | | | [address] | | | | | | [place] [place], | | | | | | [place] [address] | | | +--------+ + + + [...] FLOW HLA AB PRA | Routin | 06/20/2014 | | | | SCREEN I/II | e | 2:43 PM | | | | | | PST | | | + +--------+ + + + documented in this encounter Results LIT FLOW HLA AB PRA SCREEN I/II (06/20/2014 2:43 PM PST) + + | Specimen | + + | Blood - Blood | + + + + + + + | Performing | Address | City/State/Zipcode | Phone Number | | Organization | | | | + + + + + | [facility] - | [address] | [place] [address] | | | IMMUNOGENETICS/TRANS | [address] | | | | [facility] | | | | + + + + + documented in this encounter Visit Diagnoses Not on filedocumented in this encounter"
--- OUTSIDE RECORDS SUMMARY | ~2019-05-09 | XMS | Encounter Summary ---
Demographics + + + | Address | [address] | | | [place] [address] | + + + | Home Phone [...] Author + + + | Author | [facility] | + + + | Organization | [facility] | + + + | Address | Unknown | + + + | Phone | Unavailable | + + + Support + + +---------+ + | Name | Relationship | Address | Phone | + + +---------+ + | Olesya Lamb | ECON | Unknown | | + + +---------+ + Care Team Providers + +------+ + | Care Computer Forensics Investigator Name | Role | Phone | + +------+ + | Oziel Michael MD | PCP | | + +------+ + Encounter Details +--------+ + + + + | Date | Type | Department | Care Team | Description | +--------+ + + + + | 11/25/ | Ancillary | LAB IMMUNOGENETIC | | | | 2013 | Orders | [facility] | | | | | | [address] | | | | | | [place], | | | | | | [place] [address] | | | +--------+ + + + [...] FLOW HLA AB PRA | Routin | 11/25/2013 | | | | SCREEN I/II | e | 2:16 PM | | | | | | PDT | | | + +--------+ + + + documented in this encounter Results LIT FLOW HLA AB PRA SCREEN I/II (11/25/2013 2:16 PM PDT) + + | Specimen | + + | Blood - Blood | + + + + + + + | Performing | Address | City/State/Zipcode | Phone Number | | Organization | | | | + + + + + | [facility] - | [address] | [place] [address] | | | IMMUNOGENETICS/TRANS | [address] | | | | [facility] | | | | + + + + + documented in this encounter Visit Diagnoses Not on filedocumented in this encounter"
--- OUTSIDE RECORDS SUMMARY | ~2019-05-09 | XMS | Encounter Summary ---
Demographics + + + | Address | [address] | | | [place] [address] | + + + | Home Phone [...] | + + +---------+ + | Olesya Zainab | ECON | Unknown | | + + +---------+ + | Fanny Peace | ECON | Unknown | | + + +---------+ + Care Team Providers + +------+ + | Care Big Data Software Engineer Name | Role | Phone | + +------+ + | Oziel Michael MD | PCP | | + +------+ + Reason for Visit + + + | Reason | Comments | + + + | Labs Only | [facility] - 02/05/19 | + + + Encounter Details +--------+ + + + + | Date | Type | Department | Care Team | Description | +--------+ + + + + | 03/01/ | Documentati | [facility] | Radha Szymanski | Labs Only ([facility] | | 2019 | on | NEPRHOLOGY EAR[facility] | V, Medical | - 02/05/19) | | | | [address] | [address] | | | | | [address] [place], [place] | | | | | | [address] | | | | | | [phone] | | | +--------+ + + + [...] 2019 | Visit | | [address] [facility] [address] | | | | | | [address] [place], [place] | | | | | | [address] | | | | | | | | +--------+---------+ + + + documented as of this encounter Procedures + +--------+ + + + | Procedure Name | Priori | Date/Time | Associated Diagnosis | Comments | | | ty | | | | + +--------+ + + + | TACROLIMUS TROUGH | Routin | 02/05/2019 | | Results for this | | LC-MS/MS | e | | | procedure are in the | | | | | | results section. | + +--------+ + + + | URINALYSIS WITH | Routin | 02/05/2019 | | Results for this | | MICROSCOPIC IF | e | | | procedure are in the | | INDICATED | | | | results section. | + +--------+ + + + | ALT | Routin | 02/05/2019 | | Results for this | | | e | | | procedure are in the | | | | | | results section. | + +--------+ + + + | PROTEIN/CREATININE | Routin | 02/05/2019 | | Results for this | | RATIO, URINE | e | | | procedure are in the | | | | | | results section. | + +--------+ + + + | ASSAY OF CK (CPK) | Routin | 02/05/2019 | | Results for this | | | e | | | procedure are in the | | | | | | results section. | + +--------+ + + + | CBC WITH | Routin | 02/05/2019 | | Results for this | | DIFFERENTIAL | e | | | procedure are in the | | | | | | results section. | + +--------+ + + + | AST | Routin | 02/05/2019 | | Results for this | | | e | | | procedure are in the | | | | | | results section. | + +--------+ + + + | MAGNESIUM | Routin | 02/05/2019 | | Results for this | | | e | | | procedure are in the | | | | | | results section. | + +--------+ + + + | RENAL FUNCTION PANEL | Routin | 02/05/2019 | | Results for this | | | e | | | procedure are in the | | | | | | results section. | + +--------+ + + + documented in this encounter Results ASSAY OF CK (CPK) (02/05/2019) + +---------+ + + + | Component | Value | Ref Range | Performed | Pathologist | | | | | At | Signature | + +---------+ + + + | CK TOTAL | 250 (A) | 24 - 195 U/L | REFERENCE | | | | | | LAB | | | | | | [facility] | | + +---------+ + + + + + | Specimen | + + | | + + + + + + + | Performing | Address | City/State/Zipcode | Phone Number | | Organization | | | | + + + + + | REFERENCE LAB | [address] | [place] [address] | [phone] | | [facility] | | | | + + + + + | REFERENCE LAB | [address] | [place] [address] | [phone] | | [facility] | | | | + + + + + Protein/Creatinine Ratio, Urine (02/05/2019) + + + + + + | Component | Value | Ref Range | Performed | Pathologist | | | | | At | Signature | + + + + + + | Protein, UA | 408 (A) | 0.0 - 50.0 | REFERENCE | | | | | | LAB | | | | | | [facility] | | + + + + + + | Creatinine, | 118.89 | | REFERENCE | | | Urine | | | LAB | | | | | | [facility] | | + + + + + + | PRO/CREA | 3,431.70 (A) | 0.00 - 150.00 | REFERENCE | | | RATIO,URINE | | mg/mg | LAB | | | | | | [facility] | | + + + + + + + + | Specimen | + + | Urine | + + + + + + + | Performing | Address | City/State/Zipcode | Phone Number | | Organization | | | | + + + + + | REFERENCE LAB | [address] | [place] [address] | [phone] | | [facility] | | | | + + + + + | REFERENCE LAB | [address] | [place] [address] | [phone] | | [facility] | | | | + + + + + Renal Function Panel (02/05/2019) + + + + + + | Component | Value | Ref Range | Performed | Pathologist | | | | | At | Signature | + + + + + + | Na | 139 | 132 - 143 | REFERENCE | | | | | mmol/L | LAB | | | | | | [facility] | | + + + + + + | K | 4.4 | 3.6 - 5.1 | REFERENCE | | | | | mmol/L | LAB | | | | | | [facility] | | + + + + + + | Cl | 100 | 95 - 112 mmol/L | REFERENCE | | | | | | LAB | | | | | | [facility] | | + + + + + + | Carbon | 29 | 19 - 31 | REFERENCE | | | Dioxide, WB | | | LAB | | | | | | [facility] | | + + + + + + | Anion Gap | 14 | 7 - 21 mmol/L | REFERENCE | | | | | | LAB | | | | | | [facility] | | + + + + + + | Glucose | 198 (A) | 70 - 100 mg/dL | REFERENCE | | | | | | LAB | | | | | | [facility] | | + + + + + + | Creatinine | 1.65 (A) | 0.70 - 1.33 | REFERENCE | | | | | mg/dL | LAB | | | | | | [facility] | | + + + + + + | BUN | 23 | 6 - 23 mg/dL | REFERENCE | | | | | | LAB | | | | | | [facility] | | + + + + + + | Estimated | 43.0 | mL/min/1.73m2 | REFERENCE | | | GFR | | | LAB | | | | | | [facility] | | + + + + + + | BUN/Creatin | 13.9 | 6.0 - 28.6 | REFERENCE | | | ine Ratio | | | LAB | | | | | | [facility] | | + + + + + + | Albumin | 3.8 | 3.5 - 5.0 g/dL | REFERENCE | | | | | | LAB | | | | | | [facility] | | + + + + + + | Calcium | 8.5 | 8.5 - 10.3 | REFERENCE | | | | | | LAB | | | | | | [facility] | | + + + + + + | Phosphorus, | 3.0 | 2.5 - 5.0 | REFERENCE | | | Inorganic | | | LAB | | | | | | [facility] | | + + + + + + + + | Specimen | + + | Blood | + + + + + + + | Performing | Address | City/State/Zipcode | Phone Number | | Organization | | | | + + + + + | REFERENCE LAB | [address] [facility] | [place] [address] | [phone] | | [facility] | | | | + + + + + | REFERENCE LAB | [address] [facility] | [place] [address] | [phone] | | [facility] | | | | + + + + + Magnesium (02/05/2019) + +---------+ + + + | Component | Value | Ref Range | Performed | Pathologist | | | | | At | Signature | + +---------+ + + + | MG | 1.3 (A) | 1.7 - 2.5 | REFERENCE | | | | | | LAB | | | | | | [facility] | | + +---------+ + + + + + | Specimen | + + | Blood | + + + + + + + | Performing | Address | City/State/Zipcode | Phone Number | | Organization | | | | + + + + + | REFERENCE LAB | [address] | [place] [address] | [phone] | | [facility] | | | | + + + + + | REFERENCE LAB | [address] | [place] [address] | [phone] | | [facility] | | | | + + + + + AST (02/05/2019) + +--------+ + + + | Component | Value | Ref Range | Performed | Pathologist | | | | | At | Signature | + +--------+ + + + | AST (SGOT) | 12 (A) | 13 - 39 | REFERENCE | | | (REF) | | | LAB | | | | | | [facility] | | + +--------+ + + + + + | Specimen | + + | Blood | + + + + + + + | Performing | Address | City/State/Zipcode | Phone Number | | Organization | | | | + + + + + | REFERENCE LAB | [address] | [place] [address] | [phone] | | [facility] | | | | + + + + + | REFERENCE LAB | [address] | [place] [address] | [phone] | | [facility] | | | | + + + + + ALT (02/05/2019) + +-------+ + + + | Component | Value | Ref Range | Performed | Pathologist | | | | | At | Signature | + +-------+ + + + | ALT (SGPT) | 10 | 7 - 52 U/L | REFERENCE | | | (REF) | | | LAB | | | | | | [facility] | | + +-------+ + + + + + | Specimen | + + | Blood | + + + + + + + | Performing | Address | City/State/Zipcode | Phone Number | | Organization | | | | + + + + + | REFERENCE LAB | [address] | [place] [address] | [phone] | | [facility] | | | | + + + + + | REFERENCE LAB | [address] | [place] [address] | [phone] | | [facility] | | | | + + + + + CBC with Differential (02/05/2019) + + + + + + | Component | Value | Ref Range | Performed | Pathologist | | | | | At | Signature | + + + + + + | WBC | 3.5 (A) | 4.5 - 11.0 | REFERENCE | | | | | | LAB | | | | | | [facility] | | + + + + + + | RBC Count | 4.88 | 4.3 - 5.7 | REFERENCE | | | | | | LAB | | | | | | [facility] | | + + + + + + | Hemoglobin | 14.0 | 13.5 - 18.0 | REFERENCE | | | | | | LAB | | | | | | [facility] | | + + + + + + | Hematocrit | 42.8 | 41.0 - 50.0 % | REFERENCE | | | | | | LAB | | | | | | [facility] | | + + + + + + | Platelet | 166 | 140 - 440 K/uL | REFERENCE | | | Count | | | LAB | | | | | | [facility] | | + + + + + + | % | 59.9 | 39.0 - 80.0 % | REFERENCE | | | Neutrophils | | | LAB | | | | | | [facility] | | + + + + + + | % | 25.8 | 24.0 - 44.0 % | REFERENCE | | | Lymphocytes | | | LAB | | | | | | [facility] | | + + + + + + | Monocyte % | 12.7 (A) | 0 - 12 | REFERENCE | | | | | | LAB | | | | | | [facility] | | + + + + + + | % Basophils | 0.5 | 0.0 - 2.0 % | REFERENCE | | | | | | LAB | | | | | | [facility] | | + + + + + + | % | 1.1 | 0.0 - 6.0 % | REFERENCE | | | Eosinophils | | | LAB | | | | | | [facility] | | + + + + + + | MCH | 29 | 27 - 33 | REFERENCE | | | | | | LAB | | | | | | [facility] | | + + + + + + | MCHC, POC | 33 | 30 - 36 | REFERENCE | | | | | | LAB | | | | | | [facility] | | + + + + + + + + | Specimen | + + | Blood | + + + + + + + | Performing | Address | City/State/Zipcode | Phone Number | | Organization | | | | + + + + + | REFERENCE LAB | [address] [facility] | [place] [address] | [phone] | | [facility] | | | | + + + + + | REFERENCE LAB | [address] [facility] | [place] [address] | [phone] | | [facility] | | | | + + + + + Urinalysis with Microscopic if Indicated (02/05/2019) + + + + + + | Component | Value | Ref Range | Performed | Pathologist | | | | | At | Signature | + + + + + + | Color | yellow | | REFERENCE | | | | | | LAB | | | | | | [facility] | | + + + + + + | APPEARANCE | Clear | | REFERENCE | | | | | | LAB | | | | | | [facility] | | + + + + + + | pH, Urine | 7.0 | 5.0 - 9.0 | REFERENCE | | | | | | LAB | | | | | | [facility] | | + + + + + + | Protein, UA | >300 | | REFERENCE | | | | | | LAB | | | | | | [facility] | | + + + + + + | Glucose, UA | normal | | REFERENCE | | | | | | LAB | | | | | | [facility] | | + + + + + + | Ketones, UA | neg | | REFERENCE | | | | | | LAB | | | | | | [facility] | | + + + + + + | Bilirubin, | neg | | REFERENCE | | | UA | | | LAB | | | | | | [facility] | | + + + + + + | Specific | 1.014 | 1.005 - 1.030 | REFERENCE | | | Staley, | | | LAB | | | Urine | | | [facility] | | + + + + + + | Blood, UA | neg | | REFERENCE | | | | | | LAB | | | | | | [facility] | | + + + + + + | Nitrite, UA | neg | | REFERENCE | | | | | | LAB | | | | | | [facility] | | + + + + + + | Urobilinoge | Normal | < 0.2 mg/dL, | REFERENCE | | | n, Urine | | 1.0 mg/dL, 4.0 | LAB | | | | | mg/dL, Normal, | [facility] | | | | | 1.0 E.U./dL, | | | | | | 0.2 E.U./dL, | | | | | | 0.2 mg/dL, | | | | | | Negative, 1 | | | | | | mg/dL, <2.0 | | | | | | mg/dL | | | + + + + + + | Leukocyte | neg | | REFERENCE | | | esterase, | | | LAB | | | UA | | | [facility] | | + + + + + + | Cast Type | neg | | REFERENCE | | | | | | LAB | | | | | | [facility] | | + + + + + + | WBC CASTS | 2 | 0 - 4 /LPF | REFERENCE | | | UA | | | LAB | | | | | | [facility] | | + + + + + + | RBC cast, | 2 | 0 - 4 | REFERENCE | | | UA | | | LAB | | | | | | [facility] | | + + + + + + | Epithelial | neg | | REFERENCE | | | cell cast, | | | LAB | | | UA | | | [facility] | | + + + + + + | CRYSTAL UA | Negative | | REFERENCE | | | | | | LAB | | | | | | [facility] | | + + + + + + | Bacteria, | neg | | REFERENCE | | | UA | | | LAB | | | | | | [facility] | | + + + + + + + + | Specimen | + + | Urine | + + + + + + + | Performing | Address | City/State/Zipcode | Phone Number | | Organization | | | | + + + + + | REFERENCE LAB | [facility] [facility] | [place] [address] | [phone] | | [facility] | | | | + + + + + | REFERENCE LAB | [address] [facility] | [place] [address] | [phone] | | [facility] | | | | + + + + + Tacrolimus Trough, LC-MS/MS (02/05/2019) + +-------+ + + + | Component | Value | Ref Range | Performed | Pathologist | | | | | At | Signature | + +-------+ + + + | Tacrolimus, | 19.6 | | REFERENCE | | | LC-MS/MS | | | LAB | | | | | | [facility] | | + +-------+ + + + + + | Specimen | + + | Blood | + + + + + + + | Performing | Address | City/State/Zipcode | Phone Number | | Organization | | | | + + + + + | REFERENCE LAB | [address] | [place] [address] | [phone] | | [facility] | | | | + + + + + | REFERENCE LAB | [facility] [facility] | [place] [address] | [phone] | | [facility] | | | | + + + + + documented in this encounter Visit Diagnoses Not on filedocumented in this encounter"
--- OUTSIDE RECORDS SUMMARY | ~2019-05-09 | XMS | Encounter Summary ---
Demographics + + + | Address | [address] | | | [place] [address] | + + + | Home Phone [...] Team Providers + +------+ + | Care Project Consultant Name | Role | Phone | + +------+ + | Oziel Michael MD | PCP | | + +------+ + Encounter Details +--------+ + + + + | Date | Type | Department | Care Team | Description | +--------+ + + + + | 10/11/ | Orders Only | [facility] | Adrian Shaffer MD | | | 2010 | | [facility] | [address] | | | | | CLINICAL LABORATORY | [place], [place] | | | | | [address] | [address] | | | | | [place], [place] | [phone] | | | | | [address] | | | | | | [phone] | | | +--------+ + + + [...] | | | | | | [address] [place] | | | | | | [address] | | | | | | | | +--------+---------+ + + + documented as of this encounter Procedures + +--------+ + + + | Procedure Name | Priori | Date/Time | Associated Diagnosis | Comments | | | ty | | | | + +--------+ + + + | CULTURE, URINE | Timed | 10/11/2010 | | Results for this | | | | 9:47 PM | | procedure are in the | | | | PDT | | results section. | + +--------+ + + + documented in this encounter Results Culture, Urine (10/11/2010 9:47 PM PDT) + + | Specimen | + + | | + + + + + | Narrative | Performed At | + + + | Specimen Description CATHETERIZED URINE | EXTERNAL LAB | | Testing performed at | | | [facility];[address];[place] [address] CULTURE | | | NO GROWTH 2 DAYS | | | Testing performed at [facility], [address], | | | [place] [address] REPORT STATUS | | | 10/13/2010 FINAL | | + + + + +---------+ + + | Performing | Address | City/State/Zipcode | Phone Number | | Organization | | | | + +---------+ + + | EXTERNAL LAB | | | | + +---------+ + + documented in this encounter Visit Diagnoses Not on filedocumented in this encounter"
--- OUTSIDE RECORDS SUMMARY | ~2019-05-09 | XMS | Encounter Summary ---
Demographics + + + | Address | [address] | | | [place] [address] | + + + | Home Phone | | + + + | Preferred Language | Unknown | + + + | Marital Status | Single | + + + | Faith Affiliation | Unknown | + + + | Race | Black or | + + + | Ethnic Group | Not or | + + + Author + + + | Author | [facility] | + + + | Organization | [facility] | + + + | Address | Unknown | + + + | Phone | Unavailable | + + + Support + + +---------+ + | Name | Relationship | Address | Phone | + + +---------+ + | Olesya Lamb | ECON | Unknown | | + + +---------+ + Care Team Providers + +------+ + | Care Air Deodorizer Servicer Name | Role | Phone | + +------+ + | Oziel Michael MD | PCP | | + +------+ + Encounter Details +--------+ + + + + | Date | Type | Department | Care Team | Description | +--------+ + + + + | 10/19/ | Lab | LAB [facility] | | | | 2015 | Requisition | [facility] | | | | | | [address] | | | | | | [address] [place] [place], | | | | | | [place] [address] | | | +--------+ + + + [...] FLOW HLA AB PRA | Routin | 10/20/2015 | | | | SCREEN I/II | e | 4:36 PM | | | | | | PDT | | | + +--------+ + + + documented in this encounter Results LIT FLOW HLA AB PRA SCREEN I/II (10/20/2015 4:36 PM PDT) + + | Specimen | + + | Blood - Blood | | (substance) | + + + + + + + | Performing | Address | City/State/Zipcode | Phone Number | | Organization | | | | + + + + + | [facility] - | [address] | [place] [address] | | | IMMUNOGENETICS/TRANS | [address] | | | | [facility] | | | | + + + + + documented in this encounter Visit Diagnoses Not on filedocumented in this encounter"
--- OUTSIDE RECORDS SUMMARY | ~2019-05-09 | XMS | Encounter Summary ---
Demographics + + + | Address | [address] | | | [place] [address] | + + + | Home Phone | | + + + | Preferred Language | Unknown | + + + | Marital Status | Unknown | + + + | Jainism Affiliation | Unknown | + + + | Race | Unknown | + + + | Ethnic Group | Unknown | + + + Author + + + | Author | [facility] | | | and [place] | + + + | Organization | [facility] | | | [...] Team Providers + +------+ + | Care Driver/Merchandiser Name | Role | Phone | + +------+ + | Oziel Michael MD | PCP | | + +------+ + Encounter Details +--------+ + + + + | Date | Type | Department | Care Team | Description | +--------+ + + + + | 01/04/ | Orders Only | [facility] | Alexx Gutierrez MD | | | 2016 | | NEPHROLOGY [place] | [address] [place] | | | | | [address] [place] | [address] [place], [place] | | | | | [address] [place], [place] | [address] | | | | | [address] | | | | | | [phone] | | | +--------+ + + + [...] 2019 | Visit | | [address] [facility] | | | | | | [address] [place] | | | | | | [address] | | | | | | | [...] | | | LAB | | | [facility] | | | | | + + [...]
--- OUTSIDE RECORDS SUMMARY | ~2019-05-09 | XMS | Encounter Summary ---
Demographics + + + | Address | [address] | | | [place] [address] | + + + | Home Phone | | + + + | Preferred Language | Unknown | + + + | Marital Status | Unknown | + + + | Yazidism Affiliation | Unknown | + + + | Race | Unknown | + + + | Ethnic Group | Unknown | + + + Author + + + | Author | [facility] | | | and [place] | + + + | Organization | [facility] | | [...] Team Providers + +------+ + | Care Tower Helper Name | Role | Phone | + +------+ + PCP | Unavailable | + +------+ + Encounter Details +--------+ + + + + | Date | Type | Department | Care Team | Description | +--------+ + + + + | 06/01/ | Orders Only | [facility] | Conversion | | | 2018 | | NEPHROLOGY [place] | Transaction, | | | | | [address] [place] | Provider Unknown | | | | | [address] [place], [place] | | | | | | [address] | (Fax) | | | | | [phone] | | | +--------+ + + + [...] 2020 | Visit | | [address] [facility] | | | | | | [address] [place], [place] | | | | | | [address] | | | | | | | | +--------+---------+ + + + documented as of this encounter Procedures + +--------+ + + + | Procedure Name | Priori | Date/Time | Associated Diagnosis | Comments | | | ty | | | | + +--------+ + + + | EXTERNAL LAB: | Routin | 06/01/2018 | | Results for this | | TACROLIMUS LEVEL, | e | 10:30 AM | | procedure are in the | | LC-MS/MS | | PST | | results section. | + +--------+ + + + | CBC WITH MANUAL | Routin | 06/01/2018 | | Results for this | | DIFFERENTIAL | e | 10:30 AM | | procedure are in the | | | | PST | | results section. | + +--------+ + + + | URINALYSIS, | Routin | 06/01/2018 | | Results for this | | MICROSCOPIC ONLY | e | 10:30 AM | | procedure are in the | | | | PST | | results section. | + +--------+ + + + | MAGNESIUM | Routin | 06/01/2018 | | Results for this | | | e | 10:30 AM | | procedure are in the | | | | PST | | results section. | + +--------+ + + + | RENAL FUNCTION PANEL | Routin | 06/01/2018 | | Results for this | | | e | 10:30 AM | | procedure are in the | | | | PST | | results section. | + +--------+ + + + documented in this encounter Results External Lab: Tacrolimus Level, LC-MS/MS (06/01/2018 10:30 AM PST) + +-------+ + + + | Component | Value | Ref Range | Performed | Pathologist | | | | | At | Signature | + +-------+ + + + | Tacrolimus | 15.7 | | EXTERNAL | | | Level [...] + +---------+ + + Urinalysis, Microscopic Only (06/01/2018 10:30 AM PST) + + + + + [...] + + + + | Specific | 1.019 | 1.005 - 1.030 | EXTERNAL | | | [facility] | | | LAB | | + [...] + + + + | Ketones | Negative] | | EXTERNAL | | | | [...] | | | + +---------+ + + CBC with Manual Differential (06/01/2018 10:30 AM PST) + +---------+ + + + | Component | Value | Ref Range | Performed | Pathologist | | | | | At | Signature | + +---------+ + + + | WBC | 3.1 (A) | 4.5 - 11.0 10 | EXTERNAL | | | | | | LAB | | + +---------+ + + + | RED CELL | 4.91 | 4.3 - 5.7 10 | EXTERNAL | | | COUNT | | | LAB | | + +---------+ + + + | Hgb | 13.8 | 13.5 - 18.0 | EXTERNAL | | | | | g/dL | LAB | | + +---------+ + + + | Hematocrit, | 42.8 | 41 - 50 % | EXTERNAL | | | POC | | | LAB | | + +---------+ + + + | MCV | 87.1 | 81 - 99 fL | EXTERNAL | | | | | | LAB | | + +---------+ + + + | MCH | 28 | 27 - 33 pg | EXTERNAL | | | | | | LAB | | + +---------+ + + + | MCHC | 32 | 30 - 36 g/dL | EXTERNAL | | | | | | LAB | | + +---------+ + + + | RDW-CV | | % | EXTERNAL | | | | | | LAB | | + +---------+ + + + | Platelet | 159 | 140 - 440 K/ L | [...] / L | EXTERNAL | | | Neutrophils | | | LAB | | + [...] | | + +---------+ + + Magnesium (06/01/2018 10:30 AM PST) + +---------+ + + + | Component | Value | Ref Range | Performed | Pathologist | | | | | At | Signature | + +---------+ + + + | Magnesium | 0.9 (A) | 1.7 - 2.5 mg/dL | [...] + +---------+ + + Renal Function Panel (06/01/2018 10:30 AM PST) + + + + + + | Component | Value | Ref Range | Performed | Pathologist | | | | | At | Signature | + + + + + + | Glucose, | 197 (A) | 70 - 100 mg/dL | EXTERNAL | | | Fasting | | | LAB | | + + + + + + | BUN | 24 (A) | 6 - 23 mg/dL | EXTERNAL | | | | | | LAB | | + + + + + + | Creatinine | 1.77 (A) | 0.70 - 1.33 | EXTERNAL | | | | | mg/dL | LAB | | + + + + + + | PHOSPHORUS | 2.6 | 2.5 - 5.0 mg/dL | EXTERNAL | | | | | | LAB | | + + + + + + | Albumin | 3.4 (A) | 3.5 - 5.0 | EXTERNAL [...] | | | LAB | | | [facility] | | | | | + + + + + + | Phosphorus, | | | EXTERNAL | | | Inorganic | | | LAB | | + + + + + + | BUN/Creatin | 13.6 | 6.0 - 28.6 | EXTERNAL | | | ine Ratio | | | LAB | | + + + + + + | Calcium | 7.9 (A) | 8.5 - 10.3 | EXTERNAL | | | | | mg/dL | LAB | | + + + + + + | Estimated | 40 (A) | 60 - 140 mg/dL | [...]
--- OUTSIDE RECORDS SUMMARY | ~2019-05-09 | XMS | Encounter Summary ---
Demographics + + + | Address | [address] | | | [place] [address] | + + + | Home Phone | | + + + | Preferred Language | Unknown | + + + | Marital Status | Unknown | + + + | Episcopal Affiliation | Unknown | + + + | Race | Unknown | + + + | Ethnic Group | Unknown | + + + Author + + + | Author | [facility] | | | and [place] | + + + | Organization | [facility] | | | [...] Team Providers + +------+ + | Care Engine Assembly Supervisor Name | Role | Phone | [...] + + | 02/22/ | Telephone | [facility] | Radha Szymanski | Other (APPT/LABS | | 2019 | | NEPRHOLOGY [facility] | V, Medical | REMINDER) | | | | [address] | [address] | | | | | [address] [place], [place] | | | | | | [address] | | | | | | [phone] | | | +--------+ + + + [...] 2020 | Visit | | [address] [facility] | | | | | | [address] [place] | | | | | | [address] | | | | | | | | +--------+---------+ + + + documented as of this encounter Visit Diagnoses Not on filedocumented in this encounter"
--- OUTSIDE RECORDS SUMMARY | ~2019-05-09 | XMS | Encounter Summary ---
Demographics + + + | Address | [address] | | | [place] [address] | + + + | Home Phone | | + + + | Preferred Language | Unknown | + + + | Marital Status | Single | + + + | Rastafarian Affiliation | Unknown | + + + | Race | Black or | + + + | Ethnic Group | Not or | + + + Author + + + | Author | [facility] | + + + | Organization | [facility] | + + + | Address | Unknown | + + + | Phone | Unavailable | + + + Support + + +---------+ + | Name | Relationship | Address | Phone | + + +---------+ + | Olesya Lamb | ECON | Unknown | | + + +---------+ + Care Team Providers + +------+ + | Care Art Instructor Name | Role | Phone | + +------+ + | Oziel Michael MD | PCP | | + +------+ + Encounter Details +--------+ + + + + | Date | Type | Department | Care Team | Description | +--------+ + + + + | 07/21/ | Lab | LAB IMMUNOGENETIC | | | | 2015 | Requisition | [facility] | | | | | | [address] | | | | | | [place], | | | | | | [place] [address] | | | +--------+ + + + [...] FLOW HLA AB PRA | Routin | 07/22/2015 | | | | SCREEN I/II | e | 12:31 PM | | | | | | PST | | | + +--------+ + + + documented in this encounter Results LIT FLOW HLA AB PRA SCREEN I/II (07/22/2015 12:31 PM PST) + + | Specimen | + + | Blood - Blood | | (substance) | + + + + + + + | Performing | Address | City/State/Zipcode | Phone Number | | Organization | | | | + + + + + | [facility] - | [address] | [place] [address] | | | IMMUNOGENETICS/TRANS | [address] | | | | [facility] | | | | + + + + + documented in this encounter Visit Diagnoses Not on filedocumented in this encounter"
--- OUTSIDE RECORDS SUMMARY | ~2019-05-09 | XMS | Encounter Summary ---
Demographics + + + | Address | [address] | | | [place] [address] | + + + | Home Phone [...] Author + + + | Author | [facility] [employer] [facility] | + + + | Organization | [facility] | + + + | Address | Unknown | + + + | Phone | Unavailable | + + + Support + + +---------+ + | Name | Relationship | Address | Phone | + + +---------+ + | Olesya Lamb | ECON | Unknown | | + + +---------+ + Care Team Providers + +------+ + | Care Insulation Worker Interior Surface Name | Role | Phone | + [...] | | | | | [address] [place], | | | | | | [place] [address] | | | +--------+ + + + [...] [facility] - | [address] | [place] [address] | | | IMMUNOGENETICS/TRANS | [address] | | | | [facility] | | | | + + + + + documented in this encounter Visit Diagnoses Not on filedocumented in this encounter"
--- OUTSIDE RECORDS SUMMARY | ~2019-05-09 | XMS | Encounter Summary ---
Demographics + + + | Address | [address] | | | [place] [address] | + + + | Home Phone [...] Team Providers + +------+ + | Care Commissioner Of Internal Revenue Name | Role | Phone | + [...] [place] | | | | | | [address] | (Fax) | | | | | [phone] | | | +--------+ + + + [...] 2019 | Visit | | [address] [facility] | | | | | | [address] [place], [place] | | | | | | [address] | | | | | | | [...] + + | SURGICAL PATHOLOGY REPORT | [facility] | | Date Taken: 10/13/2010 Date Received: [...] | | | positive for C3. 1: 98168, 34948(9), 70750, 52294, | | | 16383, 00042 PROCEDURES/ADDENDA | | | ELECTRON MICROSCOPY DIAGNOSIS: [...] Diallo Harley | | | Sonny Resendiz. [address] [address] | | | or Testing performed at: [place] | | | [facility] Doug Cochran M.D., | | | Director [address] [place] [address] [address] [place] [address] Phone: | | | | | + + + + + + + + | Performing | Address | City/State/Zipcode | Phone Number | | Organization | | | | + + + + + | [facility] | [address] | [place] [address] | | | [facility] | | | | | LABORATORY | | | | + + + + + | [facility] | | | | + + + + + Surgical Pathology Exam (10/13/2010 12:00 AM PDT) + + | Specimen | + + | | + + + + + | Narrative | Performed At | + + + | SURGICAL PATHOLOGY REPORT | [facility] | | Date Taken: 10/13/2010 Date Received: [...] | | | positive for C3. 1: 44789, 11786(9), 18284, 36115, | | | 13415, 11602 PROCEDURES/ADDENDA | | | ELECTRON MICROSCOPY DIAGNOSIS: [...] Diallo Harley | | | Sonny Resendiz. [facility] [address] [place] [address] | | | or Testing performed at: [place] | | | [facility] Doug Cochran M.D., | | | Director [address] [place] [address] [address] [place] [address] Phone: | | | | | + + + + + + + + | Performing | Address | City/State/Zipcode | Phone Number | | Organization | | | | + + + + + | [facility] | [address] | [place] [address] | | | [facility] | | | | | LABORATORY | | | | + + + + + | [facility] | | | | + + + + + documented in this encounter Visit Diagnoses Not on filedocumented in this encounter
--- OUTSIDE RECORDS SUMMARY | ~2019-05-09 | XMS | Encounter Summary ---
Demographics + + + | Address | [address] | | | [place] [address] | + + + | Home Phone | | + + + | Preferred Language | Unknown | + + + | Marital Status | Single | + + + | Hoahaoism Affiliation | Unknown | + + + | Race | Black or | + + + | Ethnic Group | Not or | + + + Author + + + | Author | [facility] | + + + | Organization | [facility] | + + + | Address | Unknown | + + + | Phone | Unavailable | + + + Support + + +---------+ + | Name | Relationship | Address | Phone | + + +---------+ + | Olesya Lamb | ECON | Unknown | | + + +---------+ + Care Team Providers + +------+ + | Care Anesthesiology Fellow Name | Role | Phone | + +------+ + | Oziel Michael MD | PCP | | + +------+ + Encounter Details +--------+ + + + + | Date | Type | Department | Care Team | Description | +--------+ + + + + | 04/01/ | Lab | LAB IMMUNOGENETIC | | | | 2019 | Requisition | [facility] LAB | | | | | | [address] | | | | | | [place], | | | | | | [place] [address] | | | +--------+ + + + [...] [facility] - | [address] | [place] [address] | | | IMMUNOGENETICS/TRANS | [address] [...] [facility] - | [address] | [place] [address] | | | IMMUNOGENETICS/TRANS | [address] | | | | [facility] | | | | + + + + + documented in this encounter Visit Diagnoses Not on filedocumented in this encounter"
--- OUTSIDE RECORDS SUMMARY | ~2019-05-09 | XMS | Encounter Summary ---
Demographics + + + | Address | [address] | | | [place] [address] | + + + | Home Phone | | + + + | Preferred Language | Unknown | + + + | Marital Status | Unknown | + + + | Nondenominational Affiliation | Unknown | + + + [...] Team Providers + +------+ + | Care Membership Secretary Name | Role | Phone | + +------+ + | Oziel Michael MD | PCP | | + +------+ + Encounter Details +--------+ + + + + | Date | Type | Department | Care Team | Description | +--------+ + + + + | 10/11/ | Orders Only | [facility] | Adrian Shaffer MD | | | 2010 | | [facility] | [address] [facility] | | | | | CLINICAL LABORATORY | [place], [place] | | | | | [address] | [address] | | | | | [place], [place] | [phone] | | | | | [address] | | | | | | [phone] | | | +--------+ + + + [...] Visit | | [address] [facility] | | | | | | [address] [place], [place] | | | | | | [address] | | | | | | | | +--------+---------+ + + + documented as of this encounter Procedures + +--------+ + + + | Procedure Name | Priori | Date/Time | Associated Diagnosis | Comments | | | ty | | | | + +--------+ + + + | ALLERGEN CHICK PEA | Routin | 10/11/2010 | | Results for this | | IGE | e | 5:13 PM | | procedure are in the | | | | PDT | | results section. | + +--------+ + + + documented in this encounter Results Allergen Chick Pea IgE (10/11/2010 5:13 PM PDT) + + | Specimen | + + | | + + + + + | Narrative | Performed At | + + + | Specimen Description RIGHT LEG | EXTERNAL LAB | | Testing performed at [facility];[address] | | | [address];[place] [address] CULTURE | | | NO HERPES SIMPLEX VIRUS ISOLATED | | | Testing performed at [facility], [address] [place] [address] | | | [place] [address] REPORT STATUS | | | 10/13/2010 FINAL [...]
--- OUTSIDE RECORDS SUMMARY | ~2019-05-09 | XMS | Encounter Summary ---
Demographics + + + | Address | [address] | | | [place] [address] | + + + | Home Phone [...] + + + | Author | [facility] | + + + | Organization | [facility] | + [...] Team Providers + +------+ + | Care Cane Flume Watcher Name | Role | Phone | + +------+ + | Oziel Michael MD | PCP | | + +------+ + Encounter Details +--------+ + + + + | Date | Type | Department | Care Team | Description | +--------+ + + + + | 09/16/ | Lab | LAB IMMUNOGENETIC | | | | 2015 | Requisition | [facility]PL[facility] LAB | | | | | | [address] | | | | | | [place], | | | | | | [place] [address] | | | +--------+ + + + [...] FLOW HLA AB PRA | Routin | 09/17/2015 | | | | SCREEN I/II | e | 1:50 PM | | | | | | PDT | | | + +--------+ + + + documented in this encounter Results LIT FLOW HLA AB PRA SCREEN I/II (09/17/2015 1:50 PM PDT) + + | Specimen | + + | Blood - Blood | | (substance) | + + + + + + + | Performing | Address | City/State/Zipcode | Phone Number | | Organization | | | | + + + + + | [facility] - | [address] | [place] [address] | | | IMMUNOGENETICS/TRANS | [address] | | | | [facility] | | | | + + + + + documented in this encounter Visit Diagnoses Not on filedocumented in this encounter"
--- OUTSIDE RECORDS SUMMARY | ~2019-05-09 | XMS | Encounter Summary ---
Demographics + + + | Address | [address] | | | [place] [address] | + + + | Home Phone | | + + + | Preferred Language | Unknown | + + + | Marital Status | Single | + + + | Episcopalian Affiliation | Unknown | + + + | Race | Black or | + + + | Ethnic Group | Not or | + + + Author + + + | Author | [facility] | + + + | [...] Team Providers + +------+ + | Care Wafer Line Worker Name | Role | Phone | [...] | | | | | [address] [place], | | | | | | [place] [address] | | | +--------+ + + + [...] [facility] - | [address] | [place] [address] | | | IMMUNOGENETICS/TRANS | [address] | | | | [facility] | | | | + + + + + documented in this encounter Visit Diagnoses Not on filedocumented in this encounter"
--- OUTSIDE RECORDS SUMMARY | ~2019-05-09 | XMS | Encounter Summary ---
Demographics + + + | Address | [address] | | | [place] [address] | + + + | Home Phone | | + + + | Preferred Language | Unknown | + + + | Marital Status | Unknown | + + + | Protestant Affiliation | Unknown | + + + | Race | Unknown | + + + | Ethnic Group | Unknown | + + + Author + + + | Author | [facility] | | | and [place] | + + + | Organization | [facility] | | | [...] Team Providers + +------+ + | Care Erp Technical Lead Name | Role | Phone | + +------+ + PCP | Unavailable | + +------+ + Encounter Details +--------+ + + + + | Date | Type | Department | Care Team | Description | +--------+ + + + + | 12/31/ | Hospital | [facility] | Emmett Solitario MD | Elevated troponin; | | 2016 - | Encounter | [facility] | [address] | Serum potassium | | | | CARE [address]LO[address] | [place] [address] | elevated; ESRD (end | | 01/01/ | | [address] | [phone] | stage renal disease) | | 2016 | | [place], [place] | | (FORMERLY [facility]) | | | | [address] | | | | | | [phone] | | | +--------+ + + + [...] + + documented as of this encounter Last Filed Vital Signs + + + + + | Vital Sign | Reading | Time Taken | Comments | + + + + + | Blood Pressure | 150/86 | 01/02/2016 11:54 AM | | | | | PDT | | + + + + + | Pulse | 91 | 01/02/2016 11:54 AM | | | | | PDT | | + + + + + | Temperature | 36.6 C (97.8 F) | 01/02/2016 11:54 AM | | | | | PDT | | + + + + + | Respiratory Rate | 20 | 01/02/2016 11:54 AM | | | | | PDT | | + + + + + | Oxygen Saturation | - | - | | + + + + + | Inhaled Oxygen | - | - | | | Concentration | | | | + + + + + | Weight | 99.4 kg (219 lb 2.2 | 01/02/2016 11:54 AM | | | | oz) | PDT | | + + + + + | Height | 172.7 cm (5' 8") | 01/02/2016 11:54 AM | | | | | PDT | | + + + + + | Body Mass Index | 33.32 | 01/02/2016 11:54 AM | | | | | PDT | | + + + + + documented in this encounter Discharge Summaries Hipolito Bonilla MD - 01/02/2016 12:02 PM PDTFormatting of this note might be differ ent from the original. Discharge Summaries by Hipolito Bonilla MD at 01/02/16 1202 Author: Hipolito Bonilla MD Service: Hospitalist Author Type: Physician Filed: 01/03/16 1420 Date of Service: 01/02/16 1202 Status: Signed Incendiary Powder Mixer: Hipolito Bonilla MD (Physician) Related Notes: Original Note by Hipolito Bonilla MD (Physician) filed at 01/02/16 1204 [facility] Service: Hospitalist Discharge Summary Date of Admission: 01/01/2016 Date of Discharge: Discharge Provider: Hipolito Bonilla MD Treatment Team: Consulting Physician: Jay Schaefer MD Consulting Physician: Emmett Solitario MD Admitting Provider: Emmett Solitario MD Discharge Diagnoses: Active Problems: Epigastric abdominal pain Troponin level elevated Essential hypertension, benign ESRD (end stage renal disease) (HCC) Resolved Problems: * No resolved hospital problems. * BRIEF HISTORY OF PRESENTATION: Nik Ma is a 55 y.o. male whoWho was referred to our hospital from [facility] of epigastric pain and mildly- positive troponin at the outside facility at 0.038. Schuyler stover was admitted to our facility to rule out for ACS. We did not have any positive troponi ns. Patient underwent a nuclear stress test and did about 12 minutes of Luciano protocol with some mild ST-depression and upsloping. On the stress imaging, there was no evidence of ische irma. Patient is stable and considered low risk for adverse cardiovascular outcomes and is st able to be discharged home. His mildly-elevated troponin was most likely due to end-stage re nal disease and he can follow up with his primary care as an outpatient. Prescriptions prior to admission Medication Sig Dispense Refill Last Dose amLODIPine (NORVASC) 10 MG tablet Take 1 tablet by mouth daily. Pt monitors his bp and takes accordingly (Patient taking differently: Take 20 mg by mouth daily. Pt monitors his bp and takes accordingly) 90 tablet 4 01/01/2016 at Unknown time B Tpbafqn-E-Tzebz Acid (STERLING-BRITT) TABS TAKE 1 BY MOUTH DAILY (TAKE AFTER DIALYSIS ON DIALYSIS DAYS) 90 each 0 01/01/2016 at Unknown time Cholecalciferol (VITAMIN D-3 PO) Take 1 tablet by mouth. 12/31/2015 at Unknown time cinacalcet (SENSIPAR) 30 MG tablet Take 1 tablet by mouth daily. 90 tablet 4 01/01/2016 at Unknown time docusate sodium (COLACE) 50 MG capsule Take 100 mg by mouth nightly. Pt states he is un certain of dosage, although takes 3 pills 12/31/2015 at Unknown time RENVELA 800 MG tablet TAKE 6 BY MOUTH 3 TIMES DAILY WITH MEALS AND 1 WITHA SNACK 570 tablet 9 01/01/2016 at Unknown time zinc gluconate 50 MG tablet Take by mouth daily. Unsure of dosage OTC med 01/01/2016 at Unknown time DISCHARGE EXAM Vital Signs: BP 150/86 mmHg | Pulse 91 | Temp(Src) 97.8 F (36.6 C) (Oral) | Resp 20 | Ht 1.727 m (5' 8") | Wt 99.4 kg (219 lb 2.2 oz) | BMI 33.33 kg/m2 | SpO2 97% Physical Exam General Appearance: awake, alert, oriented, in no acute distress Eyes: No gross abnormalities. Neck: neck- supple, no mass, non-tender Lungs: Normal expansion. Clear to auscultation. No rales, rhonchi, or wheezing. Heart: Heart sounds are normal. Regular rate and rhythm without murmur, gallop or rub. Abdomen: Soft, non-tender, normal bowel sounds. No bruits, organomegaly or masses. DATA Recent Labs Lab 01/02/16 0451 01/01/162028 WBC 5.34 5.64 HGB 14.2 15.2 HCT 43.9 44.9 PLT 215 230 NEUTOPHILPCT 51.31 50.16 MONOPCT 12.65 15.53 Recent Labs Lab 01/02/16 04501/01/162028 NA 138 138 K 4.6 5.0* CL 95* 95* CO2 35* 32 BUN 25 21 CREATININE 10.5* 9.2* PROT -- 9.1* BILITOT -- 0.4 ALT -- 32 AST -- 13 Phosphorus: Lab Results Component Value Date PHOS 5.4* 01/02/2016 Invalid input(s): LABALBU Recent Labs Lab 01/02/16 0451 01/01/162028 MG 2.7* 2.6* No results for input(s): AMYLASE in the last 168 hours. No results for input(s): PHART, PO2ART, FPD8YXI, S7XVFMZD, BEART in the last 168 hours. Recent Labs Lab 01/01/162028 APTT 29 INR 1.0 No results for input(s): TSH, T3FREE, FREET4 in the last 168 hours. Recent Labs Lab 01/02/16 0755 01/02/16 0011 01/01/162028 CKTOTAL 322 406* 437* TROPONINI 0.042 0.053 0.048 CKMBINDEX 0.6 0.3 0.4 Radiology Nm Myocardial Perfusion Spect (stress And Rest) 01/02/2016 1. No evidence of ischemia at the level of stress achieved. 2. Mild fixed def ect in the inferior wall, thought to most likely represent attenuation artifact. Risk s tratification may be performed from the criteria below (1). Note that this should be interfa indra with clinical and other data, potentially affecting final categorization. 1. [place] [employer] and [place] [employer] Scientific Statement. Circulation (2008 ); 118: p 8508-8261 Selection Text Definition Low Risk 1.Normal or small myocardial per fusion defect at rest or with stress.* 2. No change of resting wall motion abnormalities d uring stress* . * Although the published data are limited, patients with these findings andreina l probably not be at low risk in the presence of either a high-risk treadmill score or sever e resting left ventricular dysfunction (LVEF <35%). Low risk equates with a less than 1% an nual mortality rate. Intermediate Risk 1. Mild/moderate resting left ventricular dysfunct ion (LVEF=35% to 49%). 2. Stress-induced moderate perfusion defect without LV dilation or increased lung intake Intermediate risk equates with a 1%-3% annual mortality rate. High Risk 1. Severe resting left ventricular dysfunction (exercise LVEF <35%) 2. Severe exerci se left ventricular dysfunction (exercise LVEF <35%) 3. Stress-induced large perfusion def ect (particularly if anterior) 4. Stress-induced multiple perfusion defects of moderate si ze 5. Large, fixed perfusion defect with LV dilation 6. Stress-induced moderate perfusio n defect with LV dilation High risk equates with a greater than 3% annual mortality rate. Disposition: Home Condition: Stable Code Status: Full Code No discharge procedures on file. Follow up: Francisco Mitchell MD [address] [place] [address] Medication List CHANGE how you take these medications amLODIPine 10 MG tablet QTY: 90 tablet Refills: 4 Commonly known as: NORVASC Take 1 tablet by mouth daily. Pt monitors his bp and takes accordingly What changed: - how much to take - additional instructions CONTINUE taking these medications cinacalcet 30 MG tablet QTY: 90 tablet Refills: 4 Commonly known as: SENSIPAR Take 1 tablet by mouth daily. docusate sodium 50 MG capsule Refills: 0 Commonly known as: COLACE STERLING-BRITT Tabs QTY: 90 each Refills: 0 TAKE 1 BY MOUTH DAILY (TAKE AFTER DIALYSIS ON DIALYSIS DAYS) RENVELA 800 MG tablet QTY: 570 tablet Refills: 9 Generic drug: sevelamer TAKE 6 BY MOUTH 3 TIMES DAILY WITH MEALS AND 1 WITHA SNACK VITAMIN D-3 PO Refills: 0 zinc gluconate 50 MG tablet Refills: 0 Discharge took 35 minutes, to include final examination, discussion of admission, and prepa ration of prescriptions, instructions for on-going care, follow-up and documentation of disc harge summary. Hipolito Bonilla MD 01/02/2016 12:03 PM documented in this encounter Medications at Time of [...] Progress Notes Conversion Transaction, Provider Unknown - 01/02/2016 12:09 PM PDTFormatting of this note m ight be different from the original. Nurse Progress Note by Gemma Doe RN at 01/02/16 1209 Author: Gemma Doe RN Service: (none) Author Type: Registered Nurse Filed: 01/02/16 1210 Date of Service: 01/02/16 1209 Status: Signed Incendiary Powder Mixer: Gemma Doe RN (Registered Nurse) Pt d/c'd home pt states understanding of f/u appts and home medications. No questions or co ncerns at this time. IV removed. Jay Greenwood MD - 01/02/2016 10:01 AM PDTFormatting of this note might be different from th e original. Progress Notes by Jay Schaefer MD at 01/02/16 1001 Author: Jay Schaefer MD Service: Nephrology Author Type: Physician Filed: 01/08/16 8420 Date of Service: 01/02/16 100 Status: Signed Incendiary Powder Mixer: Jay Schaefer MD (Physician) [facility] Service: NEPHROLOGY progress Note Douglas Jackhorn 55 y.o. [phone] [id number] male FRANCISCO Escobar STEPHEN [facility] Day: 55 y.o male with PMH ESRD on HD TIW, HTN got dialysis afterwards developed epigastric disco mfort, had labs done earlier which showed elevated troponin so send to ER. Says feel weak, Denies cp, sob, nausea, vomiting, diarrhea, fever, headache, rash, cough, d izziness Nephrology consulted for evaluation and management of ESRD ONSET Chronic severity severe Associated with fluid electrolyte acid base imbalances ASSESS NEED FOR HD/UF Patient seen and examined Says feel better Denies cp, sob, nausea, vomiting, diarrhea, fever, headache, rash, cough Past Medical History Diagnosis Date ESRD on dialysis (HCC) HTN (hypertension) Dialysis AV fistula malfunction (HCC) needs revision Dialysis patient (HCC) Unspecified visual disturbance glasses Past Surgical History Procedure Laterality Date Av fistula placement 11/2010 Left upper arm Av fistula repair 11/05/2013 Procedure: AV FISTULA - GRAFT REPAIR/REVISION; Surgeon: Leonardo Dickey MD; Location: [facility]; Service: Vascular; Laterality: Left; Left arm fistula interposition graft Prescriptions prior to admission Medication Sig Dispense Refill Last Dose amLODIPine (NORVASC) 10 MG tablet Take 1 tablet by mouth daily. Pt monitors his bp and takes accordingly (Patient taking differently: Take 20 mg by mouth daily. Pt monitors his bp and takes accordingly) 90 tablet 4 01/01/2016 at Unknown time B Trrpieq-C-Ytnhe Acid (STERLING-BRITT) TABS TAKE 1 BY MOUTH DAILY (TAKE AFTER DIALYSIS ON DIALYSIS DAYS) 90 each 0 01/01/2016 at Unknown time Cholecalciferol (VITAMIN D-3 PO) Take 1 tablet by mouth. 12/31/2015 at Unknown time cinacalcet (SENSIPAR) 30 MG tablet Take 1 tablet by mouth daily. 90 tablet 4 01/01/2016 at Unknown time docusate sodium (COLACE) 50 MG capsule Take 100 mg by mouth nightly. Pt states he is un certain of dosage, although takes 3 pills 12/31/2015 at Unknown time RENVELA 800 MG tablet TAKE 6 BY MOUTH 3 TIMES DAILY WITH MEALS AND 1 WITHA SNACK 570 tablet 9 01/01/2016 at Unknown time zinc gluconate 50 MG tablet Take by mouth daily. Unsure of dosage OTC med 01/01/2016 at Unknown time No Active Allergies Family History Problem Relation Age of Onset Hypertension Father NO FH KIDNEY PROBLEMS. History Social History Marital Status: Single Spouse Name: N/A Number of Children: N/A Years of Education: N/A Occupational History Not on file. Social History Main Topics Smoking status: Never Smoker Smokeless tobacco: Never Used Alcohol Use: No Drug Use: No Sexual Activity: Not on file Other Topics Concern Not on file Social History Narrative lives in [facility] Scheduled Medications amLODIPine 10 mg Oral Daily aspirin 81 mg Oral Daily with breakfast atorvastatin 40 mg Oral Nightly cinacalcet 30 mg Oral Daily cinacalcet 60 mg Oral Daily docusate sodium 100 mg Oral BID furosemide 80 mg Oral Daily heparin (porcine) 5000 unit/0.5mL 5,000 Units Subcutaneous Q12H lidocaine buffered 1% 0.5 mL Intradermal Once pantoprazole 40 mg Oral QAM AC sevelamer 1,600 mg Oral TID WC sodium chloride 10 mL Intravenous Q8H vitamin B fzpjscs-O-zlwzi acid 1 tablet Oral Daily Continuous Infusions PRN Medications Allergy: No Active Allergies OBJECTIVE Vital Signs: BP 144/75 mmHg | Pulse 83 | Temp(Src) 97.9 F (36.6 C) (Oral) | Resp 20 | Ht 1.727 m (5' 8") | Wt 99.4 kg (219 lb 2.2 oz) | BMI 33.33 kg/m2 | SpO2 96% I&O Detailed Table: Weight change: Examination: APPEARANCE: The patient is lying in no apparent distress. VITALS: Reviewed as listed. HEAD: NC/AT. EYES: Non-icteric sclera. ENT: No gross ear or nasal problems noted. NECK: Supple. No raised JVD LUNGS: Clear to auscultation bilaterally. HEART: S1, S2, no pericardial rub noted. ABDOMEN: Full, soft, no tenderness. Bowel sounds are present. EXTREMITIES: no pedal edema noted. SKIN: Warm to touch. No rash or ecchymosis noted. NEUROLOGIC: No gross focal motor deficit noted. PSYCH: The patient is alert and oriented x 3, mood and affect looks ok BACK: no CVA tenderness noted L AVF +VE THRILL/BRUIT LABS: Recent Results (from the past 24 hour(s)) EKG Collection Time: 01/01/16 8:10 PM Result Value Ref Range Ventricular Rate 96 BPM Atrial Rate 96 BPM P-R Interval 132 ms QRS Duration 86 ms Q-T Interval 346 ms QTC Calculation (Bezet) 437 ms Calculated P [place] 48 degrees Calculated R [place] 10 degrees Calculated T [place] 24 degrees Diagnosis Normal sinus rhythm Possible Left atrial enlargement Borderline ECG When compared with ECG of 31-OCT-2013 07:22, No significant change was found This ECG contains Unconfirmed Interpretation Statements. See ED Record for Physician Inter pretation. Confirmed by MUSE READ ONLY, -COMPUTER ([id number]), editor map JASBIR MONZON ([id number]) on 01/02/2016 5:52 :17 AM POC cardiac troponin Collection Time: 01/01/16 8:17 PM Result Value Ref Range POC CARDIAC TROPONIN 0.04 0.00 - 0.10 ng/mL Cardiac Panel Collection Time: 01/01/16 8:29 PM Result Value Ref Range WBC 5.64 3.80 - 11.00 K/uL RBC 4.86 4.20 - 5.70 M/uL HGB 15.2 13.2 - 17.0 g/dL HCT 44.9 39.0 - 50.0 % MCV 92.4 80.0 - 100.0 fl MCH 31.2 27.0 - 34.0 pg MCHC 33.8 32.0 - 35.5 g/dL RDW SD 53.4 (H) 37 - 53 fl PLT 230 150 - 400 K/uL MPV 9.0 fl DIFF TYPE AUTOMATED NEUTROPHILS 50.16 % LYMPHOCYTES 29.99 % MONOCYTES 15.53 % EOSINOPHILS 3.24 % BASOPHILS 1.08 % NEUTROPHILS ABS 2.83 1.90 - 7.40 K/uL LYMPHOCYTES ABS 1.69 1.00 - 3.90 K/uL MONOCYTES ABS 0.88 (H) 0.00 - 0.80 K/uL EOSINOPHILS ABS 0.18 0.00 - 0.50 K/uL BASOPHILS ABS 0.06 0.00 - 0.10 K/uL SODIUM 138 135 - 145 mmol/L POTASSIUM 5.0 (H) 3.5 - 4.9 mmol/L CHLORIDE 95 (L) 99 - 109 mmol/L CO2 32 23 - 32 mmol/L ANION GAP AGAP 15 5 - 20 mmol/L GLUCOSE 98 65 - 99 mg/dL BUN 21 8 - 25 mg/dL CREATININE 9.2 (H) 0.70 - 1.30 mg/dL BUN/CREAT 2 CALCIUM 10.2 8.5 - 10.5 mg/dL TOTAL PROTEIN 9.1 (H) 6.3 - 8.2 g/dL Albumin 4.2 3.6 - 5.0 g/dL GLOBULIN 4.9 1.3 - 4.9 g/dL A/G 0.9 (L) 1.0 - 2.4 TBIL 0.4 0.1 - 1.5 mg/dL ALK PHOS 91 35 - 115 U/L AST 13 10 - 45 U/L ALT 32 10 - 65 U/L EGFR 6 (L) >60 mL/min/1.73m2 CPK 437 (H) 55 - 400 U/L INR 1.0 APTT 29 23 - 32 seconds MMB 1.9 0.5 - 3.6 ng/mL CK-MB Index 0.4 Troponin I Collection Time: 01/01/16 8:29 PM Result Value Ref Range TROPONIN I 0.048 0.00 - 0.10 ng/mL Magnesium Collection Time: 01/01/16 8:29 PM Result Value Ref Range MAGNESIUM 2.6 (H) 1.7 - 2.4 mg/dL Lipase Collection Time: 01/01/16 8:29 PM Result Value Ref Range LIPASE 274 73 - 393 U/L Troponin I, Lab Collection Time: 01/02/16 12:11 AM Result Value Ref Range TROPONIN I 0.053 0.00 - 0.10 ng/mL CPK Collection Time: 01/02/16 12:11 AM Result Value Ref Range CPK 406 (H) 55 - 400 U/L CK MB Collection Time: 01/02/16 12:11 AM Result Value Ref Range MMB 1.3 0.5 - 3.6 ng/mL CK-MB Index 0.3 CBC W/Auto Diff (Reflex to Manual) Collection Time: 01/02/16 4:51 AM Result Value Ref Range WBC 5.34 3.80 - 11.00 K/uL RBC 4.69 4.20 - 5.70 M/uL HGB 14.2 13.2 - 17.0 g/dL HCT 43.9 39.0 - 50.0 % MCV 93.5 80.0 - 100.0 fl MCH 30.3 27.0 - 34.0 pg MCHC 32.4 32.0 - 35.5 g/dL RDW SD 56.0 (H) 37 - 53 fl PLT 215 150 - 400 K/uL MPV 9.6 fl DIFF TYPE AUTOMATED NEUTROPHILS 51.31 % LYMPHOCYTES 31.54 % MONOCYTES 12.65 % EOSINOPHILS 3.47 % BASOPHILS 1.03 % NEUTROPHILS ABS 2.74 1.90 - 7.40 K/uL LYMPHOCYTES ABS 1.68 1.00 - 3.90 K/uL MONOCYTES ABS 0.68 0.00 - 0.80 K/uL EOSINOPHILS ABS 0.19 0.00 - 0.50 K/uL BASOPHILS ABS 0.06 0.00 - 0.10 K/uL Basic metabolic panel Collection Time: 01/02/16 4:51 AM Result Value Ref Range SODIUM 138 135 - 145 mmol/L POTASSIUM 4.6 3.5 - 4.9 mmol/L CHLORIDE 95 (L) 99 - 109 mmol/L CO2 35 (H) 23 - 32 mmol/L ANION GAP AGAP 13 5 - 20 mmol/L GLUCOSE 99 65 - 99 mg/dL BUN 25 8 - 25 mg/dL CREATININE 10.5 (H) 0.70 - 1.30 mg/dL BUN/CREAT 2 CALCIUM 10.8 (H) 8.5 - 10.5 mg/dL EGFR 5 (L) >60 mL/min/1.73m2 Glycohemoglobin A1c Collection Time: 01/02/16 4:51 AM Result Value Ref Range HEMOGLOBIN A1C 5.6 4.0 - 6.0 % ESTIMATED AVG GLUCOSE 114 mg/dL Lipid panel Collection Time: 01/02/16 4:51 AM Result Value Ref Range CHOLESTEROL 189 <200 mg/dL Triglycerides 282 (H) <150 mg/dL HDL CHOL 35 (L) >40 mg/dL LDL CALC 98 <100 mg/dL Magnesium Collection Time: 01/02/16 4:51 AM Result Value Ref Range MAGNESIUM 2.7 (H) 1.7 - 2.4 mg/dL Phosphorus Collection Time: 01/02/16 4:51 AM Result Value Ref Range PHOSPHORUS 5.4 (H) 2.3 - 4.8 mg/dL CK MB Collection Time: 01/02/16 7:55 AM Result Value Ref Range MMB 1.9 0.5 - 3.6 ng/mL CK-MB Index 0.6 CPK Collection Time: 01/02/16 7:55 AM Result Value Ref Range CPK 322 55 - 400 U/L Troponin I Collection Time: 01/02/16 7:55 AM Result Value Ref Range TROPONIN I 0.042 0.00 - 0.10 ng/mL IMAGING: No results found. Patient's old records, imaging and labs were reviewed in detail and summarized. PROBLEM LIST Active Problems: Epigastric abdominal pain Troponin level elevated Essential hypertension, benign ESRD (end stage renal disease) ([facility]) ASSESSMENT & PLAN ESRD ON HD No need for hd/uf today Assess daily for need for hd & uf Fluid restriction 1.2 litres/24 hours Strict I & O Daily RFP Renal diet Daily weights will help with subsequent hd with uf Dose all meds per protocol for ESRD on hd HYPERKALEMIA improved Low k diet Watch k level closely ANEMIA OF CKD EPOGEN TO KEEP HGB 10-11 Lab Results Component Value Date HGB 14.2 01/02/2016 HGB 15.2 01/01/2016 HGB 13.9 01/13/2015 FERRITIN 59 10/12/2010 LABIRON 7* 10/12/2010 HYPERTENSION controlled WATCH BP CLOSELY DURING HOSPITALIZATION LOW NA DIET Will adjust BP meds according to BP readings BP Readings from Last 3 Encounters: 01/02/16 144/75 01/13/15 160/88 06/26/14 154/75 HYPERPHOSPHATEMIA LOW P DIET PO4 BINDERS Lab Results Component Value Date PHOS 5.4* 01/02/2016 PHOS 7.1* 10/17/2010 PHOS 5.4* 10/16/2010 HYPOALBUMINEMIA INCREASE PROTEIN INTAKE Lab Results Component Value Date ALB 4.2 01/01/2016 ALB 2.5* 10/17/2010 ALB 2.9* 10/13/2010 CP/ EPIGASTRIC PAIN S/p stress test no ischemia CASE DISCUSSED IN DETAIL WITH PATIENT/ care team, ANSWERS ALL QUESTIONS IN DETAIL, VERBALIZ ES UNDERSTANDING JAY SCHAEFER MD 01/02/2016 FRANCISCO MITCHELL Seen earlier and charting completed later Dictation software, ADP, used which may contain error for similar sounding words even af ter review. Personal communication requested for any clarification. onversion Transa ction, Provider Unknown - 01/02/2016 4:35 AM PDT Progress Notes by Ryan Reyes RPH at 01/02/16434 Author: Ryan Reyes RPH Service: (none) Author Type: Pharmacist Filed: 01/02/16434 Date of Service: 01/02/16434 Status: Signed Incendiary Powder Mixer: Ryan Reyes RPH (Pharmacist) Note ccl 10.2ml/min ESRD meds reviewed Pharmacy will follow [facility] [address]osse[address] in this encounter Plan of Treatment +--------+---------+ + + + | Date | Type | Specialty | Care Team | Description | +--------+---------+ + + + | 05/20/ | Office | Nephrology | Alexx Gutierrez MD | | | 2020 | Visit | | [address] [facility] | | | | | | [address] [place], [place] | | | | | | [address] | | | | | | | | +--------+---------+ + + + documented as of this encounter Procedures + +--------+ + + + | Procedure Name | Priori | Date/Time | Associated Diagnosis | Comments | | | ty | | | | + +--------+ + + + | NM MYOCARDIAL | Routin | 01/02/2016 | | Results for this | | PERFUSION MULT SPECT | e | 11:31 AM | | procedure are in the | | | | PDT | | results section. | + +--------+ + + + | TROPONIN I | Routin | 01/02/2016 | | Results for this | | | e | 7:55 AM | | procedure are in the | | | | PDT | | results section. | + +--------+ + + + | CK-MB | Routin | 01/02/2016 | | Results for this | | | e | 7:55 AM | | procedure are in the | | | | PDT | | results section. | + +--------+ + + + | CK TOTAL | Routin | 01/02/2016 | | Results for this | | | e | 7:55 AM | | procedure are in the | | | | PDT | | results section. | + +--------+ + + + | ECG 12 LEAD | Routin | 01/02/2016 | | Results for this | | | e | 7:09 AM | | procedure are in the | | | | PDT | | results section. | + +--------+ + + + | EXTERNAL LAB: CBC | Routin | 01/02/2016 | | Results for this | | | e | 4:51 AM | | procedure are in the | | | | PDT | | results section. | + +--------+ + + + | LIPID PANEL | Routin | 01/02/2016 | | Results for this | | | e | 4:51 AM | | procedure are in the | | | | PDT | | results section. | + +--------+ + + + | PHOSPHORUS | Routin | 01/02/2016 | | Results for this | | | e | 4:51 AM | | procedure are in the | | | | PDT | | results section. | + +--------+ + + + | MAGNESIUM | Routin | 01/02/2016 | | Results for this | | | e | 4:51 AM | | procedure are in the | | | | PDT | | results section. | + +--------+ + + + | HEMOGLOBIN A1C | Routin | 01/02/2016 | | Results for this | | | e | 4:51 AM | | procedure are in the | | | | PDT | | results section. | + +--------+ + + + | BASIC METABOLIC | Routin | 01/02/2016 | | Results for this | | PANEL | e | 4:51 AM | | procedure are in the | | | | PDT | | results section. | + +--------+ + + + | TROPONIN I | Routin | 01/02/2016 | | Results for this | | | e | 12:11 AM | | procedure are in the | | | | PDT | | results section. | + +--------+ + + + | CK-MB | Routin | 01/02/2016 | | Results for this | | | e | 12:11 AM | | procedure are in the | | | | PDT | | results section. | + +--------+ + + + | CK TOTAL | Routin | 01/02/2016 | | Results for this | | | e | 12:11 AM | | procedure are in the | | | | PDT | | results section. | + +--------+ + + + | HISTORICAL LAB PANEL | Routin | 01/01/2016 | | Results for this | | RESULT | e | 8:29 PM | | procedure are in the | | | | PDT | | results section. | + +--------+ + + + | TROPONIN I | Routin | 01/01/2016 | | Results for this | | | e | 8:29 PM | | procedure are in the | | | | PDT | | results section. | + +--------+ + + + | MAGNESIUM | Routin | 01/01/2016 | | Results for this | | | e | 8:29 PM | | procedure are in the | | | | PDT | | results section. | + +--------+ + + + | LIPASE | Routin | 01/01/2016 | | Results for this | | | e | 8:29 PM | | procedure are in the | | | | PDT | | results section. | + +--------+ + + + | ECG 12 LEAD | Routin | 01/01/2016 | | Results for this | | | e | 8:10 PM | | procedure are in the | | | | PDT | | results section. | + +--------+ + + + documented in this encounter Results NM Myocardial Perfusion Mult SPECT (01/02/2016 11:31 AM PDT) + + | Specimen | + + | | + + + + + | Impressions | Performed At | + + + | 1. No evidence of ischemia at the level of stress achieved. 2. | | | Mild fixed defect in the inferior wall, thought to most likely | | | represent attenuation artifact. Risk stratification | | | may be performed from the criteria below (1). Note that this should be | | | interfaced with clinical and other data, potentially affecting final | | | categorization. 1. [place] [employer] and [place] | | | College of Cardiology Scientific Statement. Circulation (2008); 118: p | | | 6937-9845 Selection Text Definition Low Risk | | | 1.Normal or small myocardial perfusion defect at rest or with stress.* | | | 2. No change of resting wall motion abnormalities during stress* | | | . * Although the published data are limited, patients with these | | | findings will probably not be at low risk in the presence of either a | | | high-risk treadmill score or severe resting left ventricular | | | dysfunction (LVEF <35%). Low risk equates with a less than 1% | | | annual mortality rate. Intermediate Risk 1. Mild/moderate | | | resting left ventricular dysfunction (LVEF=35% to 49%). 2. | | | Stress-induced moderate perfusion defect without LV dilation or | | | increased lung intake Intermediate risk equates with a 1%-3% | | | annual mortality rate. High Risk 1. Severe resting left | | | ventricular dysfunction (exercise LVEF <35%) 2. Severe exercise | | | left ventricular dysfunction (exercise LVEF <35%) 3. | | | Stress-induced large perfusion defect (particularly if anterior) | | | 4. Stress-induced multiple perfusion defects of moderate size | | | 5. Large, fixed perfusion defect with LV dilation 6. | | | Stress-induced moderate perfusion defect with LV dilation High | | | risk equates with a greater than 3% annual mortality rate. | | | | | + + + + + + | Narrative | Performed At | + + + | [facility] MYOCARDIAL PERFUSION SPECT - STRESS AND REST | | | 01/02/2016 11:31 AM HISTORY: Chest pain. TECHNIQUE: The | | | patient was given 10.2 mCi of Tc 99m Cardiolite at rest and that was | | | followed by a resting cardiac SPECT study. On the same day the patient | | | was stressed using Luciano protocol under the direction of the mid | | | level provider. At peak stress they were given 40 mCi of Tc 99m | | | Cardiolite and that was followed by cardiac SPECT imaging. | | | FINDINGS: No prior comparison. The estimated left ventricular | | | ejection fraction 48% at rest and 44% with stress. There are mildly | | | reduced counts in the inferior wall at the cardiac base but both | | | stress and rest but seems to improve on the prone scans and probably | | | represents attenuation artifact. No suspicious reversible defects are | | | identified. | | + + + + + | Procedure Note | + + | Abhishek, Rad Conversion - 12/27/2018 10:15 PM [facility] MYOCARDIAL PERFUSION | | SPECT - STRESS AND REST01/02/2016 11:31 AM HISTORY:Chest pain. TECHNIQUE:The patient was | | given 10.2 mCi of Tc 99m Cardiolite at rest and that was followed by a resting cardiac | | SPECT study. On the same day the patient was stressed using Luciano protocol under the | | direction of the [facility] level provider. At peak stress they were given 40 mCi of Tc 99m | | Cardiolite and that was followed by cardiac SPECT imaging. FINDINGS:No prior comparison. | | The estimated left ventricular ejection fraction 48% at rest and 44% with stress. There | | are mildly reduced counts in the inferior wall at the cardiac base but both stress and | | rest but seems to improve on the prone scans and probably represents attenuation | | artifact. No suspicious reversible defects are identified. IMPRESSION: 1. No evidence | | of ischemia at the level of stress achieved.2. Mild fixed defect in the inferior wall, | | thought to most likely represent attenuation artifact. Risk stratification may be | | performed from the criteria below (1). Note that this should be interfaced with clinical | | and other data, potentially affecting final categorization. 1. [place] [employer] | | Association and [place] [employer] Scientific Statement. Circulation (2008); | | 118: p 4079-3728 Selection Text Definition Low Risk 1.Normal or small myocardial | | perfusion defect at rest or with stress.* 2. No change of resting wall motion | | abnormalities during stress* . * Although the published data are limited, patients with | | these findings will probably not be at low risk in the presence of either a high-risk | | treadmill score or severe resting left ventricular dysfunction (LVEF <35%). Low risk | | equates with a less than 1% annual mortality rate. Intermediate Risk 1. Mild/moderate | | resting left ventricular dysfunction (LVEF=35% to 49%). 2. Stress-induced moderate | | perfusion defect without LV dilation or increased lung intake Intermediate risk equates | | with a 1%-3% annual mortality rate. High Risk 1. Severe resting left ventricular | | dysfunction (exercise LVEF <35%) 2. Severe exercise left ventricular dysfunction | | (exercise LVEF <35%) 3. Stress-induced large perfusion defect (particularly if | | anterior) 4. Stress-induced multiple perfusion defects of moderate size 5. Large, | | fixed perfusion defect with LV dilation 6. Stress-induced moderate perfusion defect | | with LV dilation High risk equates with a greater than 3% annual mortality rate. | | | | | |Low Risk | | | |1.Normal or small myocardial perfusion defect at rest or with stress.* | | | |2. No change of resting wall motion abnormalities during stress* . | | | |* Although the published data are limited, patients with these findings will probably not b e at low risk in the presence of either a high-risk treadmill score or severe resting left v entricular dysfunction (LVEF <35%). | | | |Low risk equates with a less than 1% annual mortality rate. | | | | | |Intermediate Risk 1. Mild/moderate resting left ventricular dysfunction (LVEF=35% to 49%). | | | |2. Stress-induced moderate perfusion defect without LV dilation or increased lung intake | | | |Intermediate risk equates with a 1%-3% annual mortality rate. | | | | | |High Risk 1. Severe resting left ventricular dysfunction (exercise LVEF <35%) | | | |2. Severe exercise left ventricular dysfunction (exercise LVEF <35%) | | | |3. Stress-induced large perfusion defect (particularly if anterior) | | | |4. Stress-induced multiple perfusion defects of moderate size | | | |5. Large, fixed perfusion defect with LV dilation | | | |6. Stress-induced moderate perfusion defect with LV dilation | | | |High risk equates with a greater than 3% annual mortality rate. | | | | | | | | | + + CK-MB (01/02/2016 7:55 AM PDT) + + + + + -+ | Component | Value | Ref Range | Performed | Pathologist | | | | | At | Signature | + + + + + -+ | CK-MB | 1.9Comment: Testing | 0.5 - 3.6 ng/mL | EXTERNAL | | | | performed at [facility] | | LAB | | | | [address];[place] | | | | | | [address] | | | | + + + + + -+ | CK-MB Index | 0.6Comment: CK INDEX | | EXTERNAL | | | | INTERPRETATION: | | LAB | | | | MMB ng/mL | | | | | | | | | | | |CK INDEX INTERPRETATION: | | | | | | MMB ng/mL | | | | | | | | | | + + + + + -+ + + | Specimen | + + | | + + + +---------+ + + | Performing | Address | City/State/Zipcode | Phone Number | | Organization | | | | + +---------+ + + | EXTERNAL LAB | | | | + +---------+ + + Troponin I (01/02/2016 7:55 AM PDT) + + + + + + | Component | Value | Ref Range | Performed | Pathologist | | | | | At | Signature | + + + + + + | Troponin I, | 0.042Comment: 0.00 to | 0.00 - 0.10 | EXTERNAL | | | Qual | 0.10 CONSISTENT WITH | ng/mL | LAB | | | | NORMAL POPULATION0.11 to | | | | | | 0.60 CONSISTENT WITH | | | | | | INCREASED RISK FOR | | | | | | ADVERSE OUTCOMES> 0.60 | | | | | | CONSISTENT | | | | | | WITH WHO CRITERIA FOR | | | | | | ACUTE [place] Testing | | | | | | performed at [facility] | | | | | | [facility];[place], [place] | | | | | | [address] | | | | + + + + + + + + | Specimen | + + | Blood specimen | | (specimen) | + + + +---------+ + + | Performing | Address | City/State/Zipcode | Phone Number | | Organization | | | | + +---------+ + + | EXTERNAL LAB | | | | + +---------+ + + CK Total (01/02/2016 7:55 AM PDT) + + + + + + | Component | Value | Ref Range | Performed | Pathologist | | | | | At | Signature | + + + + + + | CK, Total | 322Comment: Testing | 55 - 400 U/L | EXTERNAL | | | | performed at [facility] | | LAB | | | | [address];[place] | | | | | | [address] | | | | + + + + + + + + | Specimen | + + | Blood specimen | | (specimen) | + + + +---------+ + + | Performing | Address | City/State/Zipcode | Phone Number | | Organization | | | | + +---------+ + + | EXTERNAL LAB | | | | + +---------+ + + ECG 12 lead (01/02/2016 7:09 AM PDT) + + + + + + | Component | Value | Ref Range | Performed | Pathologist | | | | | At | Signature | + + + + + + | DIAGNOSIS: | Normal sinus | | EXTERNAL | | | | rhythmNormal ECGWhen | | LAB | | | | compared with ECG of | | | | | | 01-JAN-2016 20:10,No | | | | | | significant change was | | | | | | foundConfirmed by | | | | | | TOMAS SEAMAN ([id number]) on | | | | | | 01/02/2016 6:09:35 PM | | | | + + + + + + + + | Specimen | + + | | + + + + + | Narrative | Performed At | + + + | Historically converted procedure from [facility] Epic environment | EXTERNAL LAB | + + + + +---------+ + + | Performing | Address | City/State/Zipcode | Phone Number | | Organization | | | | + +---------+ + + | EXTERNAL LAB | | | | + +---------+ + + External Lab: CBC (01/02/2016 4:51 AM PDT) + + + + + + | Component | Value | Ref Range | Performed | Pathologist | | | | | At | Signature | + + + + + + | WBC | 5.34Comment: Testing | 3.80 - 11.00 | EXTERNAL | | | | performed at [facility], [address] | K/uL | LAB | | | | [address], | | | | | | [place] [address] | | | | + + + + + + | RED CELL | 4.69Comment: Testing | 4.20 - 5.70 | EXTERNAL | | | COUNT | performed at [facility], [address] | M/uL | LAB | | | | [address], | | | | | | [place] [address] | | | | + + + + + + | Hgb | 14.2Comment: Testing | 13.2 - 17.0 | EXTERNAL | | | | performed at [facility], [address] | g/dL | LAB | | | | [address], | | | | | | [place] [address] | | | | + + + + + + | Hematocrit, | 43.9Comment: Testing | 39.0 - 50.0 % | EXTERNAL | | | POC | performed at [facility], [address] | | LAB | | | | [address], | | | | | | [place] [address] | | | | + + + + + + | MCV | 93.5Comment: Testing | 80.0 - 100.0 fl | EXTERNAL | | | | performed at [facility], [address] | | LAB | | | | [address], | | | | | | [place] [address] | | | | + + + + + + | MCH | 30.3Comment: Testing | 27.0 - 34.0 pg | EXTERNAL | | | | performed at [facility], [address] | | LAB | | | | [address], | | | | | | [place] [address] | | | | + + + + + + | MCHC | 32.4Comment: Testing | 32.0 - 35.5 | EXTERNAL | | | | performed at [facility], [address] | g/dL | LAB | | | | [address], | | | | | | [place] [address] | | | | + + + + + + | RDW-CV | 56.0 (H)Comment: Testing | 37 - 53 fl | EXTERNAL | | | | performed at [facility], [address] | | LAB | | | | [address], | | | | | | [place] [address] | | | | + + + + + + | Platelet | 215Comment: Testing | 150 - 400 K/uL | EXTERNAL | | | Count | performed at [facility], [address] | | LAB | | | Plasma | [address], | | | | | | [place] [address] | | | | + + + + + + | MPV | 9.6Comment: Testing | fl | EXTERNAL | | | | performed at [facility], [address] | | LAB | | | | [address], | | | | | | [place] [address] | | | | + + + + + + | Differentia | AUTOMATEDComment: | | EXTERNAL | | | l Type | Testing performed at | | LAB | | | | [facility], [address] | | | | | | [place] | | | | | | [address] | | | | + + + + + + | % Segmented | 51.31Comment: Testing | % | EXTERNAL | | | | performed at [facility], [address] | | LAB | | | Neutrophils | [address], | | | | | | [place] [address] | | | | + + + + + + | % | 31.54Comment: Testing | % | EXTERNAL | | | Lymphocytes | performed at [facility], [address] | | LAB | | | | [address], | | | | | | [place] [address] | | | | + + + + + + | % Monocytes | 12.65Comment: Testing | % | EXTERNAL | | | | performed at [facility], [address] | | LAB | | | | [address], | | | | | | [place] [address] | | | | + + + + + + | % | 3.47Comment: Testing | % | EXTERNAL | | | Eosinophils | performed at [facility], [address] | | LAB | | | | [address], | | | | | | [place] [address] | | | | + + + + + + | % Basophils | 1.03Comment: Testing | % | EXTERNAL | | | | performed at [facility], [address] | | LAB | | | | [address], | | | | | | [place] [address] | | | | + + + + + + | Absolute | 2.74Comment: Testing | 1.90 - 7.40 | EXTERNAL | | | Segmented | performed at [facility], [address] | K/uL | LAB | | | Neutrophils | [address], | | | | | | [place] [address] | | | | + + + + + + | Absolute | 1.68Comment: Testing | 1.00 - 3.90 | EXTERNAL | | | Lymphocytes | performed at [facility], [address] | K/uL | LAB | | | | [address], | | | | | | [place] [address] | | | | + + + + + + | Absolute | 0.68Comment: Testing | 0.00 - 0.80 | EXTERNAL | | | Monocytes | performed at [facility], [address] | K/uL | LAB | | | | [address], | | | | | | [place] [address] | | | | + + + + + + | Absolute | 0.19Comment: Testing | 0.00 - 0.50 | EXTERNAL | | | Eosinophils | performed at [facility], [address] | K/uL | LAB | | | | [address], | | | | | | [place] [address] | | | | + + + + + + | Absolute | 0.06Comment: Testing | 0.00 - 0.10 | EXTERNAL | | | Basophils | performed at [facility], [address] | K/uL | LAB | | | | [address], | | | | | | [place] [address] | | | | + + + + + + + + | Specimen | + + | Blood specimen | | (specimen) | + + + +---------+ + + | Performing | Address | City/State/Zipcode | Phone Number | | Organization | | | | + +---------+ + + | EXTERNAL LAB | | | | + +---------+ + + Phosphorus (01/02/2016 4:51 AM PDT) + + + + + + | Component | Value | Ref Range | Performed | Pathologist | | | | | At | Signature | + + + + + + | PHOSPHORUS | 5.4 (H)Comment: Testing | 2.3 - 4.8 mg/dL | EXTERNAL | | | | performed at [facility], [address] | | LAB | | | | [address], | | | | | | [place] [address] | | | | + + + + + + + + | Specimen | + + | Blood specimen | | (specimen) | + + + +---------+ + + | Performing | Address | City/State/Zipcode | Phone Number | | Organization | | | | + +---------+ + + | EXTERNAL LAB | | | | + +---------+ + + Magnesium (01/02/2016 4:51 AM PDT) + + + + + + | Component | Value | Ref Range | Performed | Pathologist | | | | | At | Signature | + + + + + + | Magnesium | 2.7 (H)Comment: Testing | 1.7 - 2.4 mg/dL | EXTERNAL | | | | performed at [facility], [address] | | LAB | | | | [address], | | | | | | [place] [address] | | | | + + + + + + + + | Specimen | + + | Blood specimen | | (specimen) | + + + +---------+ + + | Performing | Address | City/State/Zipcode | Phone Number | | Organization | | | | + +---------+ + + | EXTERNAL LAB | | | | + +---------+ + + Hemoglobin A1C (01/02/2016 4:51 AM PDT) + + + + + + | Component | Value | Ref Range | Performed | Pathologist | | | | | At | Signature | + + + + + + | Hemoglobin | 5.6Comment: The [place] | 4.0 - 6.0 % | EXTERNAL | | | A1c | Diabetes Association | | LAB | | | | considers a hemoglobin | | | | | | A1c result of <7.0% to | | | | | | be the goal of diabetic | | | | | | therapy. When results | | | | | | are consistently >8.0%, | | | | | | the ADA suggests | | | | | | reevaluation of the | | | | | | treatment regimen. The | | | | | | testing method used is | | | | | | certified traceable to | | | | | | the Diabetes Control and | | | | | | Complications Trial | | | | | | reference method.Testing | | | | | | performed at [facility], [address] | | | | | [address] [facility], | | | | | | [place] [address] | | | | + + + + + + | Glycohemogl | 114Comment: The ADA | mg/dL | EXTERNAL | | | obin | considers an eAG result | | LAB | | | (GHb),Total | of LT 154 mg/dL to be | | | | | | the goal of diabetic | | | | | | therapy. Estimated | | | | | | Average Glucose | | | | | | calculated from | | | | | | hemoglobin A1c by use of | | | | | | the ADA recommended | | | | | | formula.Testing | | | | | | performed at [facility], [address] | | | | | | [facility], | | | | | | [place] [address] | | | | + + + + + + + + | Specimen | + + | Blood specimen | | (specimen) | + + + +---------+ + + | Performing | Address | City/State/Zipcode | Phone Number | | Organization | | | | + +---------+ + + | EXTERNAL LAB | | | | + +---------+ + + Lipid Panel (01/02/2016 4:51 AM PDT) + + + + + + | Component | Value | Ref Range | Performed | Pathologist | | | | | At | Signature | + + + + + + | Cholesterol | 189Comment: Testing | mg/dL | EXTERNAL | | | | performed at [facility], [address] | | LAB | | | | [address], | | | | | | [place] [address] | | | | + + + + + + | Triglycerid | 282 (H)Comment: Testing | mg/dL | EXTERNAL | | | es | performed at [facility], [address] | | LAB | | | | [address], | | | | | | [place] [address] | | | | + + + + + + | HDL | 35 (L)Comment: Testing | mg/dL | EXTERNAL | | | | performed at [facility], [address] | | LAB | | | | [address], | | | | | | [place] [address] | | | | + + + + + + | LDL | 98Comment: Testing | mg/dL | EXTERNAL | | | Cholesterol | performed at [facility], [address] | | LAB | | | , | [address], | | | | | Calculated, | [place] [address] | | | | | External | | | | | + + [...] + +---------+ + + Basic Metabolic Panel (01/02/2016 4:51 AM PDT) + + + + + + | Component | Value | Ref Range | Performed | Pathologist | | | | | At | Signature | + + + + + + | Na | 138Comment: Testing | 135 - 145 | EXTERNAL | | | | performed at [facility], [address] | mmol/L | LAB | | | | [address], | | | | | | [place] [address] | | | | + + + + + + | K | 4.6Comment: Testing | 3.5 - 4.9 | EXTERNAL | | | | performed at [facility], [address] | mmol/L | LAB | | | | [address], | | | | | | [place] [address] | | | | + + + + + + | Cl | 95 (L)Comment: Testing | 99 - 109 mmol/L | EXTERNAL | | | | performed at [facility], [address] | | LAB | | | | [address], | | | | | | [place] [address] | | | | + + + + + + | CO2 | 35 (H)Comment: Testing | 23 - 32 mmol/L | EXTERNAL | | | | performed at [facility], [address] | | LAB | | | | [address], | | | | | | [place] [address] | | | | + + + + + + | Anion Gap | 13Comment: Testing | 5 - 20 mmol/L | EXTERNAL | | | | performed at [facility], [address] | | LAB | | | | [address], | | | | | | [place] [address] | | | | + + + + + + | Glucose, | 99Comment: Testing | 65 - 99 mg/dL | EXTERNAL | | | Fasting | performed at [facility], [address] | | LAB | | | | [address], | | | | | | [place] [address] | | | | + + + + + + | BUN | 25Comment: Testing | 8 - 25 mg/dL | EXTERNAL | | | | performed at [facility], [address] | | LAB | | | | [address], | | | | | | [place] [address] | | | | + + + + + + | Creatinine | 10.5 (H)Comment: Testing | 0.70 - 1.30 | EXTERNAL | | | | performed at [facility], [address] | mg/dL | LAB | | | | [address], | | | | | | [place] [address] | | | | + + + + + + | BUN/Creatin | 2Comment: Testing | | EXTERNAL | | | ine Ratio | performed at [facility], [address] | | LAB | | | | [address], | | | | | | [place] [address] | | | | + + + + + + | Calcium | 10.8 (H)Comment: Testing | 8.5 - 10.5 | EXTERNAL | | | | performed at [facility], [address] | mg/dL | LAB | | | | [address], | | | | | | [place] [address] | | | | + + + [...] | | | | | | at [facility], [address] | | | | | | [address], | | | | | | [place] [address] | | | | + + + + + + + + | Specimen | + + | Blood specimen | | (specimen) | + + + +---------+ + + | Performing | Address | City/State/Zipcode | Phone Number | | Organization | | | | + +---------+ + + | EXTERNAL LAB | | | | + +---------+ + + CK-MB (01/02/2016 12:11 AM PDT) + + + + + -+ | Component | Value | Ref Range | Performed | Pathologist | | | | | At | Signature | + + + + + -+ | CK-MB | 1.3Comment: Testing | 0.5 - 3.6 ng/mL | EXTERNAL | | | | performed at [facility] | | LAB | | | | [address];[place], [place] | | | | | | [address] | | | | + + + + + -+ | CK-MB Index | 0.3Comment: CK INDEX | | EXTERNAL | | | | INTERPRETATION: | | LAB | | | | MMB ng/mL | | | | | | | | | | | |CK INDEX INTERPRETATION: | | | | | | MMB ng/mL | | | | | | | | | | + + + + + -+ + + | Specimen | + + | | + + + +---------+ + + | Performing | Address | City/State/Zipcode | Phone Number | | Organization | | | | + +---------+ + + | EXTERNAL LAB | | | | + +---------+ + + Troponin I (01/02/2016 12:11 AM PDT) + + + + + + | Component | Value | Ref Range | Performed | Pathologist | | | | | At | Signature | + + + + + + | Troponin I, | 0.053Comment: 0.00 to | 0.00 - 0.10 | EXTERNAL | | | Qual | 0.10 CONSISTENT WITH | ng/mL | LAB | | | | NORMAL POPULATION0.11 to | | | | | | 0.60 CONSISTENT WITH | | | | | | INCREASED RISK FOR | | | | | | ADVERSE OUTCOMES> 0.60 | | | | | | CONSISTENT | | | | | | WITH WHO CRITERIA FOR | | | | | | ACUTE [place] Testing | | | | | | performed at [facility] | | | | | | [facility] [facility];[place], [place] | | | | | | [address] | | | | + + + + + + + + | Specimen | + + | Blood specimen | | (specimen) | + + + +---------+ + + | Performing | Address | City/State/Zipcode | Phone Number | | Organization | | | | + +---------+ + + | EXTERNAL LAB | | | | + +---------+ + + CK Total (01/02/2016 12:11 AM PDT) + + + + + + | Component | Value | Ref Range | Performed | Pathologist | | | | | At | Signature | + + + + + + | CK, Total | 406 (H)Comment: SLT | 55 - 400 U/L | EXTERNAL | | | | HEMOLYSISTesting | | LAB | | | | performed at [facility] | | | | | | [address];[place], [place] | | | | | | [address] | | | | + + + + + + + + | Specimen | + + | | + + + +---------+ + + | Performing | Address | City/State/Zipcode | Phone Number | | Organization | | | | + +---------+ + + | EXTERNAL LAB | | | | + +---------+ + + HISTORICAL LAB PANEL RESULT (01/01/2016 8:29 PM PDT) + + + + + -+ | Component | Value | Ref Range | Performed | Pathologist | | | | | At | Signature | + + + + + -+ | WBC | 5.64Comment: Testing | 3.80 - 11.00 | EXTERNAL | | | | performed at [facility] | K/uL | LAB | | | | [address];[place] | | | | | | [address] | | | | + + + + + -+ | RED CELL | 4.86Comment: Testing | 4.20 - 5.70 | EXTERNAL | | | COUNT | performed at [facility];[address] | M/uL | LAB | | | | [address];[place] | | | | | | [address] | | | | + + + + + -+ | Hgb | 15.2Comment: Testing | 13.2 - 17.0 | EXTERNAL | | | | performed at [facility] | g/dL | LAB | | | | [address];[place] | | | | | | [address] | | | | + + + + + -+ | Hematocrit, | 44.9Comment: Testing | 39.0 - 50.0 % | EXTERNAL | | | POC | performed at [facility] | | LAB | | | | [address];[place] | | | | | | [address] | | | | + + + + + -+ | MCV | 92.4Comment: Testing | 80.0 - 100.0 fl | EXTERNAL | | | | performed at [facility] | | LAB | | | | [address];[place] | | | | | | [address] | | | | + + + + + -+ | MCH | 31.2Comment: Testing | 27.0 - 34.0 pg | EXTERNAL | | | | performed at [facility] | | LAB | | | | [address];[place] | | | | | | [address] | | | | + + + + + -+ | MCHC | 33.8Comment: Testing | 32.0 - 35.5 | EXTERNAL | | | | performed at [facility] | g/dL | LAB | | | | [address];[place] | | | | | | [address] | | | | + + + + + -+ | RDW-CV | 53.4 (H)Comment: Testing | 37 - 53 fl | EXTERNAL | | | | performed at [facility] | | LAB | | | | [address];[place] | | | | | | [address] | | | | + + + + + -+ | Platelet | 230Comment: Testing | 150 - 400 K/uL | EXTERNAL | | | Count | performed at [facility] | | LAB | | | Plasma | [address];[place] | | | | | | [address] | | | | + + + + + -+ | MPV | 9.0Comment: Testing | fl | EXTERNAL | | | | performed at [facility] | | LAB | | | | [address];[place] | | | | | | [address] | | | | + + + + + -+ | Differentia | AUTOMATEDComment: | | EXTERNAL | | | l Type | Testing performed at | | LAB | | | | [facility] | [address];[place] [address] | | | | + + + + + -+ | % Segmented | 50.16Comment: Testing | % | EXTERNAL | | | | performed at [facility];[address] | | LAB | | | Neutrophils | [address];[place] | | | | | | [address] | | | | + + + + + -+ | % | 29.99Comment: Testing | % | EXTERNAL | | | Lymphocytes | performed at [facility];[address] | | LAB | | | | [address];[place] | | | | | | [address] | | | | + + + + + -+ | % Monocytes | 15.53Comment: Testing | % | EXTERNAL | | | | performed at [facility];[address] | | LAB | | | | [address];[place] | | | | | | [address] | | | | + + + + + -+ | % | 3.24Comment: Testing | % | EXTERNAL | | | Eosinophils | performed at [facility];[address] | | LAB | | | | [address];[place] | | | | | | [address] | | | | + + + + + -+ | % Basophils | 1.08Comment: Testing | % | EXTERNAL | | | | performed at [facility];[address] | | LAB | | | | [address];[place] | | | | | | [address] | | | | + + + + + -+ | Absolute | 2.83Comment: Testing | 1.90 - 7.40 | EXTERNAL | | | Segmented | performed at [facility];[address] | K/uL | LAB | | | Neutrophils | [address];[place] | | | | | | [address] | | | | + + + + + -+ | Absolute | 1.69Comment: Testing | 1.00 - 3.90 | EXTERNAL | | | Lymphocytes | performed at [facility];[address] | K/uL | LAB | | | | [address];[place] | | | | | | [address] | | | | + + + + + -+ | Absolute | 0.88 (H)Comment: Testing | 0.00 - 0.80 | EXTERNAL | | | Monocytes | performed at [facility];888 | K/uL | LAB | | | | [address];[place] | | | | | | [address] | | | | + + + + + -+ | Absolute | 0.18Comment: Testing | 0.00 - 0.50 | EXTERNAL | | | Eosinophils | performed at [facility];[address] | K/uL | LAB | | | | [address];[place] | | | | | | [address] | | | | + + + + + -+ | Absolute | 0.06Comment: Testing | 0.00 - 0.10 | EXTERNAL | | | Basophils | performed at [facility];[address] | K/uL | LAB | | | | [address];[place] | | | | | | [address] | | | | + + + + + -+ | Na | 138Comment: Testing | 135 - 145 | EXTERNAL | | | | performed at [facility];888 | mmol/L | LAB | | | | [address];[place] | | | | | | [address] | | | | + + + + + -+ | K | 5.0 (H)Comment: SLT | 3.5 - 4.9 | EXTERNAL | | | | HEMOLYSISTesting | mmol/L | LAB | | | | performed at [facility];[address] | | | | | | [address];[place] | | | | | | [address] | | | | + + + + + -+ | Cl | 95 (L)Comment: Testing | 99 - 109 mmol/L | EXTERNAL | | | | performed at [facility];[address] | | LAB | | | | [address];[place] | | | | | | [address] | | | | + + + + + -+ | CO2 | 32Comment: Testing | 23 - 32 mmol/L | EXTERNAL | | | | performed at [facility];[address] | | LAB | | | | [address];[place] | | | | | | [address] | | | | + + + + + -+ | Anion Gap | 15Comment: Testing | 5 - 20 mmol/L | EXTERNAL | | | | performed at [facility];[address] | | LAB | | | | [address];[place] | | | | | | [address] | | | | + + + + + -+ | Glucose, | 98Comment: Testing | 65 - 99 mg/dL | EXTERNAL | | | Fasting | performed at [facility];[address] | | LAB | | | | [address];[place] | | | | | | [address] | | | | + + + + + -+ | BUN | 21Comment: Testing | 8 - 25 mg/dL | EXTERNAL | | | | performed at [facility];[address] | | LAB | | | | [address];[place] | | | | | | [address] | | | | + + + + + -+ | Creatinine | 9.2 (H)Comment: Testing | 0.70 - 1.30 | EXTERNAL | | | | performed at [facility];888 | mg/dL | LAB | | | | [address];[place] | | | | | | [address] | | | | + + + + + -+ | BUN/Creatin | 2Comment: Testing | | EXTERNAL | | | ine Ratio | performed at [facility];[address] | | LAB | | | | [address];[place] | | | | | | [address] | | | | + + + + + -+ | Calcium | 10.2Comment: Testing | 8.5 - 10.5 | EXTERNAL | | | | performed at [facility];888 | mg/dL | LAB | | | | [address];[place] | | | | | | [address] | | | | + + + + + -+ | Protein, | 9.1 (H)Comment: Testing | 6.3 - 8.2 g/dL | EXTERNAL | | | Total | performed at [facility];[address] | | LAB | | | | [address];[place] | | | | | | [address] | | | | + + + + + -+ | Albumin | 4.2Comment: Testing | 3.6 - 5.0 g/dL | EXTERNAL | | | | performed at [facility];[address] | | LAB | | | | [address];[place] | | | | | | [address] | | | | + + + + + -+ | Globulin | 4.9Comment: Testing | 1.3 - 4.9 g/dL | EXTERNAL | | | | performed at [facility];[address] | | LAB | | | | [address];[place] | | | | | | [address] | | | | + + + + + -+ | A/G Ratio | 0.9 (L)Comment: Testing | 1.0 - 2.4 | EXTERNAL | | | | performed at [facility];[address] | | LAB | | | | [address];[place] | | | | | | [address] | | | | + + + + + -+ | Bilirubin | 0.4Comment: Testing | 0.1 - 1.5 mg/dL | EXTERNAL | | | Total | performed at [facility];[address] | | LAB | | | | [address];[place] | | | | | | [address] | | | | + + + + + -+ | ALP, | 91Comment: Testing | 35 - 115 U/L | EXTERNAL | | | External | performed at [facility];[address] | | LAB | | | | [address];[place] | | | | | | [address] | | | | + + + + + -+ | AST | 13Comment: SLT | 10 - 45 U/L | EXTERNAL | | | | HEMOLYSISTesting | | LAB | | | | performed at [facility];[address] | | | | | | [address];[place] | | | | | | [address] | | | | + + + + + -+ | ALT | 32Comment: Testing | 10 - 65 U/L | EXTERNAL | | | | performed at [facility];[address] | | LAB | | | | [address];[place] | | | | | | [address] | | | | + + + + + -+ | Estimated | 6 (L)Comment: GFR <60: [...] | | | | | | at [facility];[address];[place] [address] | | | | + + + + + -+ | CK, Total | 437 (H)Comment: Testing | 55 - 400 U/L | EXTERNAL | | | | performed at [facility];[address] | | LAB | | | | [address];[place] | | | | | | [address] | | | | + + + + + -+ | INR | 1.0Comment: REFERENCE | | [...] | | | | | performed at [facility];[address] | | | | | | [address];[place] | | | | | | [address] | | | | + + + + + -+ | aPTT, | 29Comment: Testing | 23 - 32 seconds | EXTERNAL | | | Patient | performed at [facility];[address] | | LAB | | | | [address];[place] | | | | | | [address] | | | | + + + + + -+ | CK-MB | 1.9Comment: Testing | 0.5 - 3.6 ng/mL | EXTERNAL | | | | performed at [facility];[address] | | LAB | | | | [address];[place] | | | | | | [address] | | | | + + + + + -+ | CK-MB Index | 0.4Comment: CK INDEX | | EXTERNAL | | | | INTERPRETATION: | | LAB | | | | MMB ng/mL | | | | | | | | | | | |CK INDEX INTERPRETATION: | | | | | | MMB ng/mL | | | | | | | | | | + + + + + -+ + + | Specimen | + + | | + + + +---------+ + + | Performing | Address | City/State/Zipcode | Phone Number | | Organization | | | | + +---------+ + + | EXTERNAL LAB | | | | + +---------+ + + Troponin I (01/01/2016 8:29 PM PDT) + + + + + + | Component | Value | Ref Range | Performed | Pathologist | | | | | At | Signature | + + + + + + | Troponin I, | 0.048Comment: 0.00 to | 0.00 - 0.10 | EXTERNAL | | | Qual | 0.10 CONSISTENT WITH | ng/mL | LAB | | | | NORMAL POPULATION0.11 to | | | | | | 0.60 CONSISTENT WITH | | | | | | INCREASED RISK FOR | | | | | | ADVERSE OUTCOMES> 0.60 | | | | | | CONSISTENT | | | | | | WITH WHO CRITERIA FOR | | | | | | ACUTE [place] Testing | | | | | | performed at [facility];[address] | | | | | | [address];[place], [place] | | | | | | [address] | | | | + + + + + + + + | Specimen | + + | Blood specimen | | (specimen) | + + + +---------+ + + | Performing | Address | City/State/Zipcode | Phone Number | | Organization | | | | + +---------+ + + | EXTERNAL LAB | | | | + +---------+ + + Magnesium (01/01/2016 8:29 PM PDT) + + + + + + | Component | Value | Ref Range | Performed | Pathologist | | | | | At | Signature | + + + + + + | Magnesium | 2.6 (H)Comment: SLT | 1.7 - 2.4 mg/dL | EXTERNAL | | | | HEMOLYSISTesting | | LAB | | | | performed at [facility] | | | | | | [address];[place], [place] | | | | | | [address] | | | | + + + + + + + + | Specimen | + + | Blood specimen | | (specimen) | + + + +---------+ + + | Performing | Address | City/State/Zipcode | Phone Number | | Organization | | | | + +---------+ + + | EXTERNAL LAB | | | | + +---------+ + + Lipase (01/01/2016 8:29 PM PDT) + + + + + + | Component | Value | Ref Range | Performed | Pathologist | | | | | At | Signature | + + + + + + | Lipase | 274Comment: Testing | 73 - 393 U/L | EXTERNAL | | | | performed at [facility];[address] | | LAB | | | | [address];[place] | | | | | | [address] | | | | + + + + + + + + | Specimen | + + | | + + + +---------+ + + | Performing | Address | City/State/Zipcode | Phone Number | | Organization | | | | + +---------+ + + | EXTERNAL LAB | | | | + +---------+ + + ECG 12 lead (01/01/2016 8:10 PM PDT) + + + + + + | Component | Value | Ref Range | Performed | Pathologist | | | | | At | Signature | + + + + + + | DIAGNOSIS: | Normal sinus | | EXTERNAL | | | | rhythmPossible Left | | LAB | | | | atrial | | | | | | enlargementBorderline | | | | | | ECGWhen compared with | | | | | | ECG of 31-OCT-2013 | | | | | | 07:22,No significant | | | | | | change was foundThis ECG | | | | | | contains Unconfirmed | | | | | | Interpretation | | | | | | Statements. See ED | | | | | | Record for Physician | | | | | | Interpretation. | | | | | | Confirmed by MUSE READ | | | | | | ONLY, -COMPUTER ([id number]), | | | | | | editor map JASBIR MONZON | | | | | | (125) on 01/02/2016 | | | | | | 5:52:17 AM | | | | + + + + + + + + | Specimen | + + | | + + + + + | Narrative | Performed At | + + + | [facility] | EXTERNAL LAB | + + + + +---------+ + + | Performing | Address | City/State/Zipcode | Phone Number | | Organization | | | | + +---------+ + + | EXTERNAL LAB | | | | + +---------+ + + documented in this encounter Visit Diagnoses + + | Diagnosis | + + | Elevated troponin Other abnormal blood chemistry | + + | Serum potassium elevated Hyperpotassemia | + + | ESRD (end stage renal disease) (HCC) End stage renal disease | + + documented in this encounter
--- OUTSIDE RECORDS SUMMARY | ~2019-05-09 | XMS | Encounter Summary ---
Demographics + + + | Address | [address] | | | [place] [address] | + + + | Home Phone | | + + + | Preferred Language | Unknown | + + + | Marital Status | Unknown | + + + | Methodist Affiliation [...] Team Providers + +------+ + | Care Shelter Supervisor Name | Role | Phone | + +------+ + | Oziel Michael MD | PCP | | + +------+ + Encounter Details +--------+ + + + + | Date | Type | Department | Care Team | Description | +--------+ + + + + | 07/01/ | Orders Only | [facility] | Conversion | | | 2017 | | CONVERSION [address] | Transaction, | | | | | [address] | Provider Unknown | | | | | [place] | [phone] | | | | | [address] | | | | | | [phone] | | | +--------+ + + + [...] 2020 | Visit | | [address] [facility] | | | | | | [address] [place] | | | | | | [address] | | | | | | | | +--------+---------+ + + + documented as of this encounter Visit Diagnoses Not on filedocumented in this encounter"
--- OUTSIDE RECORDS SUMMARY | ~2019-05-09 | XMS | Encounter Summary ---
Demographics + + + | Address | [address] | | | [place] [address] | + + + | Home Phone | | + + + | Preferred Language | Unknown | + + + | Marital Status | Unknown | + + + | Scientologist Affiliation | Unknown | + + + [...] Providers + +------+ + | Care Computer Network Specialist Name | Role | Phone | + +------+ + | Oziel Michael MD | PCP | | + +------+ + Encounter Details +--------+ + + + + | Date | Type | Department | Care Team | Description | +--------+ + + + + | 09/27/ | Orders Only | [facility] | Alexx Gutierrez MD | | | 2019 | | [facility] [place] | [address] | | | | | [address] | [address] [place], [place] | | | | | [address] [place], [place] | [address] | | | | | [address] | | | | | | [phone] | | | +--------+ + + + [...] 2020 | Visit | | [address] [facility] | | | | | | [address] [place] | | | | | | [address] | | | | | | | | +--------+---------+ + + + documented as of this encounter Visit Diagnoses Not on filedocumented in this encounter"
--- OUTSIDE RECORDS SUMMARY | ~2019-05-09 | XMS | Encounter Summary ---
Demographics + + + | Address | [address] | | | [place] [address] | + + + | Home Phone [...] Author + + + | Author | [facility] | + + + | Organization | [facility] | + + + | Address | Unknown | + + + | Phone | Unavailable | + + + Support + + +---------+ + | Name | Relationship | Address | Phone | + + +---------+ + | Olesya Lamb | ECON | Unknown | | + + +---------+ + Care Team Providers + +------+ + | Care Application Technician Name | Role | Phone | + +------+ + | Oziel Michael MD | PCP | | + +------+ + Encounter Details +--------+ + + + + | Date | Type | Department | Care Team | Description | +--------+ + + + + | 12/24/ | Ancillary | LAB IMMUNOGENETIC | | | | 2013 | Orders | [facility] | | | | | | [address] | | | | | | [address] [place], | | | | | | [place] [address] | | | +--------+ + + + [...] FLOW HLA AB PRA | Routin | 12/24/2013 | | | | SCREEN I/II | e | 1:52 PM | | | | | | PDT | | | + +--------+ + + + documented in this encounter Results LIT FLOW HLA AB PRA SCREEN I/II (12/24/2013 1:52 PM PDT) + + | Specimen | + + | Blood - Blood | + + + + + + + | Performing | Address | City/State/Zipcode | Phone Number | | Organization | | | | + + + + + | [facility] - | [address] | [place] [address] | | | IMMUNOGENETICS/TRANS | [address] | | | | [facility] | | | | + + + + + documented in this encounter Visit Diagnoses Not on filedocumented in this encounter"
--- OUTSIDE RECORDS SUMMARY | ~2019-05-09 | XMS | Encounter Summary ---
Demographics + + + | Address | [address] | | | [place] [address] | + + + | Home Phone | | + + + | Preferred Language | Unknown | + + + | Marital Status | Unknown | + + + | Mandaen Affiliation | Unknown | + + + | Race | Unknown | + + + | Ethnic Group | Unknown | + + + Author + + + | Author | [facility] | | | and [place] | + + + | Organization | [facility] | | | [...] Team Providers + +------+ + | Care Coordinator Of Online Programs Name | Role | Phone | + +------+ + | Oziel Michael MD | PCP | | + +------+ + Encounter Details +--------+ + + + + | Date | Type | Department | Care Team | Description | +--------+ + + + + | 10/11/ | Orders Only | [facility] | Adrian Shaffer MD | | | 2010 | | [facility] | [address] [facility] | | | | | CLINICAL LABORATORY | [place], [place] | | | | | [address] | [address] | | | | | [place], [place] | [phone] | | | | | [address] | | | | | | [phone] | | | +--------+ + + + [...] 2019 | Visit | | [address] [facility] | | | | | | [address] [place] | | | | | | [address] | | | | | | | | +--------+---------+ + + + documented as of this encounter Procedures + +--------+ + + + | Procedure Name | Priori | Date/Time | Associated Diagnosis | Comments | | | ty | | | | + +--------+ + + + | CULTURE, BLOOD | Timed | 10/11/2010 | | Results for this | | | | 5:45 PM | | procedure are in the | | | | PDT | | results section. | + +--------+ + + + documented in this encounter Results Culture, Blood (10/11/2010 5:45 PM PDT) + + | Specimen | + + | | + + + + + | Narrative | Performed At | + + + | Specimen Description BLOOD, PERIPHERAL DRAW | EXTERNAL LAB | | Testing performed | | | at [facility];[address] [place] [address];[place] [address] SPECIAL REQUESTS | | | LAC | | | Testing performed at [facility];[address] [place], [place] [address] [address] | | | CULTURE NO GROWTH IN 5 DAYS. | | | Testing | | | performed at [facility];[address] [place] [address] REPORT STATUS | | | 10/17/2010 FINAL | | + + + + +---------+ + + | Performing | Address | City/State/Zipcode | Phone Number | | Organization | | | | + +---------+ + + | EXTERNAL LAB | | | | + +---------+ + + documented in this encounter Visit Diagnoses Not on filedocumented in this encounter"
--- OUTSIDE RECORDS SUMMARY | ~2019-05-09 | XMS | Encounter Summary ---
Demographics + + + | Address | [address] | | | [place] [address] | + + + | Home Phone | | + + + | Preferred Language | Unknown | + + + | Marital Status | Unknown | + + + | Caodaism Affiliation | Unknown | + + + | Race | Unknown | + + + | Ethnic Group | Unknown | + + + Author + + + | Author | [facility] | | | and [place] | + + + | Organization | [facility] | | | and [...] Team Providers + +------+ + | Care Executive Director Of Nursing Name | Role | Phone | + +------+ + | Oziel Michael MD | PCP | | + +------+ + Encounter Details +--------+ + + + + | Date | Type | Department | Care Team | Description | +--------+ + + + + | 10/11/ | Orders Only | [facility] | Adrian Shaffer MD | | | 2010 | | [facility] | [address] [facility] | | | | | CLINICAL LABORATORY | [place], [place] | | | | | [address] | [address] | | | | | [place], [place] | [phone] | | | | | [address] | | | | | | [phone] | | | +--------+ + + + [...] | | | | | | [address] [place], [place] | | | | | | [address] | | | | | | | [...] LAB | | Testing performed at [facility];[address] | | | [address];[place] [address] CULTURE | | | NO HERPES SIMPLEX VIRUS ISOLATED | | | Testing performed at [facility], [address] [place] [address] | | | [place] [address] REPORT STATUS | | | 10/13/2010 FINAL [...]
--- OUTSIDE RECORDS SUMMARY | ~2019-05-09 | XMS | Encounter Summary ---
Demographics + + + | Address | [address] | | | [place] [address] | + + + | Home Phone | | + + + | Preferred Language | Unknown | + + + | Marital Status | Single | + + + | Orthodoxy Affiliation | Unknown | + + + | Race | Black or | + + + | Ethnic Group | Not or | + + + Author + + + | Author | [facility] | + + + | Organization | [...] Providers + +------+ + | Care Fur Repairer Name | Role | Phone | + [...] | | | | | [address] [place], | | | | | | [place] [address] | | | +--------+ + + + [...] [facility] - | [address] | [place] [address] | | | IMMUNOGENETICS/TRANS | [address] | | | | [facility] | | | | + + + + + documented in this encounter Visit Diagnoses Not on filedocumented in this encounter"
--- OUTSIDE RECORDS SUMMARY | ~2019-05-09 | XMS | Encounter Summary ---
Demographics + + + | Address | [address] | | | [place] [address] | + + + | Home Phone | | + + + | Preferred Language | Unknown | + + + | Marital Status | Unknown | + + + | Restorationism Affiliation | Unknown | + + + | Race | Unknown | + + + | Ethnic Group | Unknown | + + + Author + + + | Author | [facility] | | | and [place] | + + + | Organization | [facility] | | | [...] Team Providers + +------+ + | Care Black Oxide Operator Name | Role | Phone | + +------+ + PCP | Unavailable | + +------+ + Encounter Details +--------+ + + + + | Date | Type | Department | Care Team | Description | +--------+ + + + + | 11/05/ | Orders Only | [facility] | Alexx Gutierrez MD | | | 2019 | | NEPHROLOGY [place] | [address] [place] | | | | | [address] [place] | [address] [place], [place] | | | | | [address] [place], [place] | [address] | | | | | [address] | | | | | | [phone] | | | +--------+ + + + [...] 2019 | Visit | | [address] [facility] | | | | | | [address] [facility] | | | | | | [address] | | | | | | | | +--------+---------+ + + + documented as of this encounter Procedures + +--------+ + + + | Procedure Name | Priori | Date/Time | Associated Diagnosis | Comments | | | ty | | | | + +--------+ + + + | EXTERNAL LAB: | Routin | 11/05/2018 | | Results for this | | TACROLIMUS LEVEL, | e | 7:11 AM | | procedure are in the | | LC-MS/MS | | PDT | | results section. | + +--------+ + + + | EXTERNAL LAB: CBC | Routin | 11/05/2018 | | Results for this | | | e | 7:11 AM | | procedure are in the | | | | PDT | | results section. | + +--------+ + + + | URINALYSIS WITH | Routin | 11/05/2018 | | Results for this | | MICROSCOPIC IF | e | 7:11 AM | | procedure are in the | | INDICATED | | PDT | | results section. | + +--------+ + + + | PROTEIN/CREATININE | Routin | 11/05/2018 | | Results for this | | RATIO, URINE | e | 7:11 AM | | procedure are in the | | | | PDT | | results section. | + +--------+ + + + | AST | Routin | 11/05/2018 | | Results for this | | | e | 7:11 AM | | procedure are in the | | | | PDT | | results section. | + +--------+ + + + | PARATHYROID HORMONE, | Routin | 11/05/2018 | | Results for this | | INTACT | e | 7:11 AM | | procedure are in the | | | | PDT | | results section. | + +--------+ + + + | MAGNESIUM | Routin | 11/05/2018 | | Results for this | | | e | 7:11 AM | | procedure are in the | | | | PDT | | results section. | + +--------+ + + + | CK TOTAL | Routin | 11/05/2018 | | Results for this | | | e | 7:11 AM | | procedure are in the | | | | PDT | | results section. | + +--------+ + + + | RENAL FUNCTION PANEL | Routin | 11/05/2018 | | Results for this | | | e | 7:11 AM | | procedure are in the | | | | PDT | | results section. | + +--------+ + + + documented in this encounter Results External Lab: Tacrolimus Level, LC-MS/MS (11/05/2018 7:11 AM PDT) + +-------+ + + + | Component | Value | Ref Range | Performed | Pathologist | | | | | At | Signature | + +-------+ + + + | Tacrolimus | 7.3 | | EXTERNAL | | | Level [...] + +---------+ + + Protein/Creatinine Ratio, Urine (11/05/2018 7:11 AM PDT) + + + + + + | Component | Value | Ref Range | Performed | Pathologist | | | | | At | Signature | + + + + + + | Protein/Cre | 2600.6 (A) | 0 - 150 | EXTERNAL [...] + + Urinalysis with Microscopic if Indicated (11/05/2018 7:11 AM PDT) + + + + + [...] + + + | Spec Grav, | 1.014 | 1.005 - 1.030 | EXTERNAL | [...] Performed At | + + + | Casts: Negative WBC: 2 RBC: 0 Epithelial: Negative Crystals: | EXTERNAL LAB | | Negative Bacteria: Negative | | + + + + +---------+ + + | Performing | Address | City/State/Zipcode | Phone Number | | Organization | | | | + +---------+ + + | EXTERNAL LAB | | | | + +---------+ + + External Lab: CBC (11/05/2018 7:11 AM PDT) + + + + + + | Component | Value | Ref Range | Performed | Pathologist | | | | | At | Signature | + + + + + + | WBC | 3.2 (A) | 4.5 - 11.0 10 | EXTERNAL | | | | | | LAB | | + + + + + + | RED CELL | 5.07 | 4.3 - 5.7 10 | EXTERNAL | | | COUNT | | | LAB | | + + + + + + | Hgb | 14.3 | 13.5 - 18.0 | EXTERNAL | | | | | g/dL | LAB | | + + + + + + | Hematocrit, | 43.9 | 41 - 50 % | EXTERNAL | | | POC | | | LAB | | + + + + + + | MCV | 86.6 | 81 - 99 fL | EXTERNAL [...] + + + + | Platelet | 169 | 140 - 440 K/ L | EXTERNAL | | | Count | | | LAB | | | Plasma | | | | | + + + + + + | RDW-CV | 15.5 (A) | 10.5 - 15.0 % | [...] + + + | % Segmented | 47.7 | 39 - 80 % | EXTERNAL | | | | | | LAB | | | Neutrophils | | | | | + + + + + + | % | 37.6 | 24 - 44 % | EXTERNAL | | | Lymphocytes | | | LAB | | + + + + + + | % Monocytes | 12.1 (A) | 0 - 12 % | EXTERNAL | | | | | | LAB | | + + + + + + | % | 1.5 | 0 - 6 % | EXTERNAL | | | Eosinophils | | | LAB | | + + + + + + | % Basophils | 1.1 | 0 - 2 % | EXTERNAL [...] | | + +---------+ + + AST (11/05/2018 7:11 AM PDT) + +-------+ + + + | Component | Value | Ref Range | Performed | Pathologist | | | | | At | Signature | + +-------+ + + + | AST | 15 | 13 - 39 U/L | EXTERNAL [...] + +---------+ + + Parathyroid Hormone, Intact (11/05/2018 7:11 AM PDT) + + + + + + | Component | Value | Ref Range | Performed | Pathologist | | | | | At | Signature | + + + + + + | PTH INTACT | 122.4 (A) | 15 - 65 pg/mL | [...] | | + +---------+ + + Magnesium (11/05/2018 7:11 AM PDT) + +---------+ + + + [...] | + +---------+ + + CK Total (11/05/2018 7:11 AM PDT) + +---------+ + + + | Component | Value | Ref Range | Performed | Pathologist | | | | | At | Signature | + +---------+ + + + | CK, Total | 200 (A) | 24 - 195 U/L | [...] + +---------+ + + Renal Function Panel (11/05/2018 7:11 AM PDT) + + + + + + | Component | Value | Ref Range | Performed | Pathologist | | | | | At | Signature | + + + + + + | Glucose, | 180 (A) | 70 - 100 mg/dL | EXTERNAL | | | Fasting | | | LAB | | + + + + + + | BUN | 35 (A) | 6 - 23 mg/dL | EXTERNAL | | | | | | LAB | | + + + + + + | Creatinine | 1.82 (A) | 0.70 - 1.33 | EXTERNAL | | | | | mg/dL | LAB | | + + + + + + | PHOSPHORUS | 4.1 | 2.5 - 5.0 mg/dL | EXTERNAL [...] + + + + | CO2 | 28 | 19 - 31 mmol/L | EXTERNAL | | | | | | LAB | | + + + + + + | Anion Gap | 13.0 | 7 - 21 mmol/L | EXTERNAL | | | | | | LAB | | + + + + + + | eGFR if not | | | EXTERNAL | | | | | | LAB | | | ZIMBABWEAN | | | | | + + + + + + | Phosphorus, | | | EXTERNAL | | | Inorganic | | | LAB | | + + + + + + | BUN/Creatin | 19.2 | 6.0 - 28.6 | EXTERNAL | | | ine Ratio | | | LAB | | + + + + + + | Calcium | 8.4 (A) | 8.5 - 10.3 | EXTERNAL | | | | | mg/dL | LAB | | + + + + + + | Estimated | 38 (A) | 60 - 140 mg/dL | [...]
--- OUTSIDE RECORDS SUMMARY | ~2019-05-09 | XMS | Encounter Summary ---
Demographics + + + | Address | [address] | | | [place] [address] | + + + | Home Phone | | + + + | Preferred Language | Unknown | + + + | Marital Status | Single | + + + | Taoism Affiliation | Unknown | + + + | Race | Black or | + + + | Ethnic Group | Not or | + + + Author + + + | Author | [facility] | + + + | Organization | [facility] | + [...] Team Providers + +------+ + | Care Forge Helper Name | Role | Phone | [...] | | | | | Mirlande Nunes [place], | | | | | | [place] [address] | | | +--------+ + + + [...] [facility] - | [address] | [place] [address] | | | IMMUNOGENETICS/TRANS | [address] [...] [facility] - | [address] | [place] [address] | | | IMMUNOGENETICS/TRANS | [address] | | | | [facility] | | | | + + + + + documented in this encounter Visit Diagnoses Not on filedocumented in this encounter"
--- OUTSIDE RECORDS SUMMARY | ~2019-05-09 | XMS | Encounter Summary ---
Demographics + + + | Address | [address] | | | [place] [address] | + + + | Home Phone | | + + + | Preferred Language | Unknown | + + + | Marital Status | Unknown | + + + | Tenriism Affiliation | Unknown | + + + | Race | Unknown | + + + | Ethnic Group | Unknown | + + + Author + + + | Author | [facility] | | | and [place] | + + + | Organization | [facility] | | [...] Team Providers + +------+ + | Care Bottle House Cleaners Supervisor Name | Role | Phone | [...] [place] | | | | | | [address] | (Fax) | | | | | [phone] | | | +--------+ + + + [...] 2019 | Visit | | [address] [facility] | | | | | | [address] [place], [place] | | | | | | [address] | | | | | | | [...] + + | SURGICAL PATHOLOGY REPORT | [facility] | | Date Taken: 10/13/2010 Date [...] | | | positive for C3. 1: 61148, 79734(9), 89081, 55224, | | | [address]496, [address] PROCEDURES/ADDENDA | | | ELECTRON MICROSCOPY DIAGNOSIS: [...] Diallo Harley | | | Sonny Resendiz. [address] [address] | | | or Testing performed at: [facility] | | | [facility] Doug Cochran M.D., | | | Director [address] [place] [address] [address] [place] [address] Phone: | | | | | + + + + + + + + | Performing | Address | City/State/Zipcode | Phone Number | | Organization | | | | + + + + + | [facility] | [address] | [place] [address] | | | [facility] | | | | | LABORATORY | | | | + + + + + | [facility] | | | | + + + + + Surgical Pathology Exam (10/13/2010 12:00 AM PDT) + + | Specimen | + + | | + + + + + | Narrative | Performed At | + + + | SURGICAL PATHOLOGY REPORT | [facility] | | Date Taken: 10/13/2010 Date [...] | | | positive for C3. 1: 72625, 85677(9), 84491, 45844, | | | 10813, 544[address] PROCEDURES/ADDENDA | | | ELECTRON MICROSCOPY DIAGNOSIS: [...] Diallo Harley | | | Sonny Resendiz. [facility] [address] [place] [address] | | | or Testing performed at: [facility] | | | [facility] Doug Cochran M.D., | | | Director [address] [place] [address] [address] [place] [address] Phone: | | | | | + + + + + + + + | Performing | Address | City/State/Zipcode | Phone Number | | Organization | | | | + + + + + | [facility] | [address] | [place] [address] | | | [facility] | | | | | LABORATORY | | | | + + + + + | [facility] | | | | + + + + + documented in this encounter Visit Diagnoses Not on filedocumented in this encounter
--- OUTSIDE RECORDS SUMMARY | ~2019-05-09 | XMS | Encounter Summary ---
Demographics + + + | Address | [address] | | | [place] [address] | + + + | Home Phone | | + + + | Preferred Language | Unknown | + + + | Marital Status | Single | + + + | Orthodox Affiliation | Unknown | + + + | Race | Black or | + + + | Ethnic Group | Not or | + + + Author + + + | Author | [facility] | + + + | Organization | [facility] | + + + | Address | Unknown | + + + | Phone | Unavailable | + + + Support + + +---------+ + | Name | Relationship | Address | Phone | + + +---------+ + | Olesya Lamb | ECON | Unknown | | + + +---------+ + Care Team Providers + +------+ + | Care Fine Wire Drawer Name | Role | Phone | + [...] | | | | | Mirlande Nunes [place], | | | | | | [place] [address] | | | +--------+ + + + [...] [facility] - | [address] | [place] [address] | | | IMMUNOGENETICS/TRANS | [address] | | | | [facility] | | | | + + + + + documented in this encounter Visit Diagnoses Not on filedocumented in this encounter"
--- OUTSIDE RECORDS SUMMARY | ~2019-05-09 | XMS | Encounter Summary ---
Demographics + + + | Address | [address] | | | [place] [address] | + + + | Home Phone | | + + + | Preferred Language | Unknown | + + + | Marital Status | Unknown | + + + | Sikh Affiliation | Unknown | + + + | Race | Unknown | + + + | Ethnic Group | Unknown | + + + Author + + + | Author | [facility] | | | and [place] | + + + | Organization | [facility] | | [...] Team Providers + +------+ + | Care Animal Biologist Name | Role | Phone | + +------+ + PCP | Unavailable | + +------+ + Encounter Details +--------+ + + + + | Date | Type | Department | Care Team | Description | +--------+ + + + + | 03/05/ | Hospital | [facility] | Conversion | Venous pressure | | 2013 | Encounter | CENTER CV INTRA OP | Transaction, | increased | | | | [address] | Provider Unknown | | | | | [place], [place] | [phone] | | | | | [address] | | | | | | [phone] | Alexx Gutierrez MD | | | | | | [address] [place] | | | | | | [address] [place], [place] | | | | | | [address] | | | | | | | [...] 2020 | Visit | | [address] [facility] | | | | | | [address] [place] | | | | | | [address] | | | | | | | | +--------+---------+ + + + documented as of this encounter Procedures + +--------+ + + + | Procedure Name | Priori | Date/Time | Associated Diagnosis | Comments | | | ty | | | | + +--------+ + + + | IR INJECTION | Routin | 03/05/2013 | | Results for this | | DIALYSIS CIRCUIT W | e | 3:33 PM | | procedure are in the | | ANGIOPLASTY | | PDT | | results section. | + +--------+ + + + | IR INJECTION | Routin | 03/05/2013 | | Results for this | | DIALYSIS CIRCUIT | e | 3:33 PM | | procedure are in the | | | | PDT | | results section. | + +--------+ + + + documented in this encounter Results IR Inj Dialysis Circuit w Angioplasty (03/05/2013 3:33 PM PDT) + + | Specimen | + + | | + + + + + | Impressions | Performed At | + + + | 1. Successful left brachiocephalic fistulogram and angioplasty the | | | in-stent restenosis using 7 mm and 8 mm balloon catheters with | | | moderate anatomic response and suboptimal hemodynamic response. | | | | | + + + + + + | Narrative | Performed At | + + + | [facility] 03/05/2013 3:33 PM | | | HISTORY: 52 years. Male. With chronic kidney disease stage V | | | presents with decreasing KT over V. 585.6, 996.1 EXAMINATION | | | Left the brachiocephalic fistulogram and angioplasty of the multiple | | | tandem stenosis in mid left cephalic vein and in-stent restenosis | | | using 8 mm x 4 cm balloon catheter. MEDICATIONS: Isovue-200 | | | 40 cc, Heparin 5000 units intravenous, Versed 2 mg intravenous, | | | fentanyl 100-mcg intravenous. Intra-procedure sedation time 28 | | | minutes. The radiation dose 88 mGray, Fluoroscopy time 3.2 | | | minutes. Appropriate physiologic monitoring, maintenance of | | | adequate conscious sedation and independent half-way | | | supervision performed throughout the procedure. PROCEDURE: | | | Informed written consent obtained from the patient after explaining | | | the procedure, risks and alternatives. Patient understood the | | | discussion and expressed a wish to proceed. The appropriate side and | | | site was labeled and initialed as an independent process antecedent to | | | the imaging and intervention, as per protocol at this institution. | | | Patient was placed supine on the x-ray table. The left arm prepped | | | in the usual sterile fashion. Left arm AV fistula was accessed | | | using micropuncture needle and exchanged for 4-Serbian micropuncture | | | sheath. Initial fistula pressure was obtained and fistulogram | | | obtained from the right cubital fossa to the right atrium. Given | | | the severe in-stent restenosis in mid left cephalic vein, I decided to | | | perform angioplasty of the venous lesion. 4-Serbian micropuncture | | | sheath was exchanged for 6-Serbian short sheath over a 0.035, angled | | | Glidewire. 7 mm x 4 cm balloon catheter was advanced over the 0.035, | | | angled Glidewire. Balloon was positioned across stenosis in mid | | | left cephalic vein and angioplasty was performed. During inflation of | | | the balloon across the venous anastomosis Reflux evaluation of the | | | arteriovenous anastomosis obtained. Subsequently, balloon was | | | deflated and given the persistent hiatal pressure, repeat balloon | | | dilatation of the in-stent restenosis performed with 8mm by 4 cm | | | balloon with prolonged inflation. Then balloon was deflated and a | | [...] 1. Initial fistula | | | pressure 153/86 mm Hg, arterial pressure 167/93 mm Hg, final fistula | | | pressure 105/67 mm Hg. 2. Left the brachiocephalic fistulogram | | | showed previously placed metallic stent in mid left cephalic vein with | | | severe, preocclusive instent restenosis and pseudoaneurysm arising | | | from access sites proximally. Rest of the central veins are widely | | | patent. 3. Successful angioplasty of the in-stent restenosis | | | initially with 7 mm balloon and then with the 8 mm balloon with | | | moderate anatomic response. | | + + + + + | Procedure Note | + + | Abhishek, Rad Conversion - 01/04/2019 11:[address] [facility] | | [id number]/22/2013 3:33 PM HISTORY:52 years. Male. With chronic kidney disease | | stage V presents with decreasing KT over V. 585.6, 996.1 EXAMINATION Left the | | brachiocephalic fistulogram and angioplasty of the multiple tandem stenosis in mid left | | cephalic vein and in-stent restenosis using 8 mm x 4 cm balloon catheter. MEDICATIONS: | | Isovue-200 40 cc, Heparin 5000 units intravenous, Versed 2 mg intravenous, fentanyl | | 100-mcg intravenous. Intra-procedure sedation time 28 minutes. The radiation dose 88 | | mGray, Fluoroscopy time 3.2 minutes. Appropriate physiologic monitoring, maintenance of | | adequate conscious sedation and independent half-way supervision performed | | throughout the procedure. PROCEDURE: Informed written consent obtained from the patient | | after explaining the procedure, risks and alternatives. Patient understood the | | discussion and expressed a wish to proceed.The appropriate side and site was labeled and | | initialed as an independent process antecedent to the imaging and intervention, as per | | protocol at this institution. Patient was placed supine on the x-ray table. The left | | arm prepped in the usual sterile fashion. Left arm AV fistula was accessed using | | micropuncture needle and exchanged for 4-Serbian micropuncture sheath. Initial fistula | | pressure was obtained and fistulogram obtained from the right cubital fossa to the | | right atrium. Given the severe in-stent restenosis in mid left cephalic vein, I decided | | to perform angioplasty of the venous lesion. 4-Serbian micropuncture sheath was | | exchanged for 6-Serbian short sheath over a 0.035, angled Glidewire. 7 mm x 4 cm balloon | | catheter was advanced over the 0.035, angled Glidewire. Balloon was positioned across | | stenosis in mid left cephalic vein and angioplasty was performed. During inflation of | | the balloon across the venous anastomosis Reflux evaluation of the arteriovenous | | anastomosis obtained. Subsequently, balloon was deflated and given the persistent | | hiatal pressure, repeat balloon dilatation of the in-stent restenosis performed with 8mm | | by 4 cm balloon with prolonged inflation. Then balloon was deflated and a final | | fistulogram obtained from the left cubital fossa to the right atrium. Final fistula | | pressure and arterial pressures were obtained. All catheters and wires then removed and | | hemostasis obtained with manual pressure. No immediate procedural complications. | | Patient tolerated the procedure well. FINDINGS1. Initial fistula pressure 153/86 mm Hg, | | arterial pressure 167/93 mm Hg, final fistula pressure 105/67 mm Hg.2. Left the | | brachiocephalic fistulogram showed previously placed metallic stent in mid left cephalic | | vein with severe, preocclusive instent restenosis and pseudoaneurysm arising from | | access sites proximally. Rest of the central veins are widely patent.3. Successful | | angioplasty of the in-stent restenosis initially with 7 mm balloon and then with the 8 | | mm balloon with moderate anatomic response. IMPRESSION: 1. Successful left | | brachiocephalic fistulogram and angioplasty the in-stent restenosis using 7 mm and 8 mm | | balloon catheters with moderate anatomic response and suboptimal hemodynamic response. | | | | | | | | | + + IR Inj Dialysis Circuit (03/05/2013 3:33 PM PDT) + + | Specimen | + + | | + + + + + | Impressions | Performed At | + + + | 1. Successful left brachiocephalic fistulogram and angioplasty the | | | in-stent restenosis using 7 mm and 8 mm balloon catheters with | | | moderate anatomic response and suboptimal hemodynamic response. | | | | | + + + + + + | Narrative | Performed At | + + + | [facility] 03/05/2013 3:33 PM | | | HISTORY: 52 years. Male. With chronic kidney disease stage V | | | presents with decreasing KT over V. 585.6, 996.1 EXAMINATION | | | Left the brachiocephalic fistulogram and angioplasty of the multiple | | | tandem stenosis in mid left cephalic vein and in-stent restenosis | | | using 8 mm x 4 cm balloon catheter. MEDICATIONS: Isovue-200 | | | 40 cc, Heparin 5000 units intravenous, Versed 2 mg intravenous, | | | fentanyl 100-mcg intravenous. Intra-procedure sedation time 28 | | | minutes. The radiation dose 88 mGray, Fluoroscopy time 3.2 | | | minutes. Appropriate physiologic monitoring, maintenance of | | | adequate conscious sedation and independent half-way | | | supervision performed throughout the procedure. PROCEDURE: | | | Informed written consent obtained from the patient after explaining | | | the procedure, risks and alternatives. Patient understood the | | | discussion and expressed a wish to proceed. The appropriate side and | | | site was labeled and initialed as an independent process antecedent to | | | the imaging and intervention, as per protocol at this institution. | | | Patient was placed supine on the x-ray table. The left arm prepped | | | in the usual sterile fashion. Left arm AV fistula was accessed | | | using micropuncture needle and exchanged for 4-Serbian micropuncture | | | sheath. Initial fistula pressure was obtained and fistulogram | | | obtained from the right cubital fossa to the right atrium. Given | | | the severe in-stent restenosis in mid left cephalic vein, I decided to | | | perform angioplasty of the venous lesion. 4-Serbian micropuncture | | | sheath was exchanged for 6-Serbian short sheath over a 0.035, angled | | | Glidewire. 7 mm x 4 cm balloon catheter was advanced over the 0.035, | | | angled Glidewire. Balloon was positioned across stenosis in mid | | | left cephalic vein and angioplasty was performed. During inflation of | | | the balloon across the venous anastomosis Reflux evaluation of the | | | arteriovenous anastomosis obtained. Subsequently, balloon was | | | deflated and given the persistent hiatal pressure, repeat balloon | | | dilatation of the in-stent restenosis performed with 8mm by 4 cm | | | balloon with prolonged inflation. Then balloon was deflated and a | | [...] 1. Initial fistula | | | pressure 153/86 mm Hg, arterial pressure 167/93 mm Hg, final fistula | | | pressure 105/67 mm Hg. 2. Left the brachiocephalic fistulogram | | | showed previously placed metallic stent in mid left cephalic vein with | | | severe, preocclusive instent restenosis and pseudoaneurysm arising | | | from access sites proximally. Rest of the central veins are widely | | | patent. 3. Successful angioplasty of the in-stent restenosis | | | initially with 7 mm balloon and then with the 8 mm balloon with | | | moderate anatomic response. | | + + + + + | Procedure Note | + + | Abhishek, Rad Conversion - 01/04/2019 11:57 PM PDT [facility] | | [id number]/22/2013 3:33 PM HISTORY:52 years. Male. With chronic kidney disease | | stage V presents with decreasing KT over V. 585.6, 996.1 EXAMINATION Left the | | brachiocephalic fistulogram and angioplasty of the multiple tandem stenosis in mid left | | cephalic vein and in-stent restenosis using 8 mm x 4 cm balloon catheter. MEDICATIONS: | | Isovue-200 40 cc, Heparin 5000 units intravenous, Versed 2 mg intravenous, fentanyl | | 100-mcg intravenous. Intra-procedure sedation time 28 minutes. The radiation dose 88 | | mGray, Fluoroscopy time 3.2 minutes. Appropriate physiologic monitoring, maintenance of | | adequate conscious sedation and independent half-way supervision performed | | throughout the procedure. PROCEDURE: Informed written consent obtained from the patient | | after explaining the procedure, risks and alternatives. Patient understood the | | discussion and expressed a wish to proceed.The appropriate side and site was labeled and | | initialed as an independent process antecedent to the imaging and intervention, as per | | protocol at this institution. Patient was placed supine on the x-ray table. The left | | arm prepped in the usual sterile fashion. Left arm AV fistula was accessed using | | micropuncture needle and exchanged for 4-Serbian micropuncture sheath. Initial fistula | | pressure was obtained and fistulogram obtained from the right cubital fossa to the | | right atrium. Given the severe in-stent restenosis in mid left cephalic vein, I decided | | to perform angioplasty of the venous lesion. 4-Serbian micropuncture sheath was | | exchanged for 6-Serbian short sheath over a 0.035, angled Glidewire. 7 mm x 4 cm balloon | | catheter was advanced over the 0.035, angled Glidewire. Balloon was positioned across | | stenosis in mid left cephalic vein and angioplasty was performed. During inflation of | | the balloon across the venous anastomosis Reflux evaluation of the arteriovenous | | anastomosis obtained. Subsequently, balloon was deflated and given the persistent | | hiatal pressure, repeat balloon dilatation of the in-stent restenosis performed with 8mm | | by 4 cm balloon with prolonged inflation. Then balloon was deflated and a final | | fistulogram obtained from the left cubital fossa to the right atrium. Final fistula | | pressure and arterial pressures were obtained. All catheters and wires then removed and | | hemostasis obtained with manual pressure. No immediate procedural complications. | | Patient tolerated the procedure well. FINDINGS1. Initial fistula pressure 153/86 mm Hg, | | arterial pressure 167/93 mm Hg, final fistula pressure 105/67 mm Hg.2. Left the | | brachiocephalic fistulogram showed previously placed metallic stent in mid left cephalic | | vein with severe, preocclusive instent restenosis and pseudoaneurysm arising from | | access sites proximally. Rest of the central veins are widely patent.3. Successful | | angioplasty of the in-stent restenosis initially with 7 mm balloon and then with the 8 | | mm balloon with moderate anatomic response. IMPRESSION: 1. Successful left | | brachiocephalic fistulogram and angioplasty the in-stent restenosis using 7 mm and 8 mm | | balloon catheters with moderate anatomic response and suboptimal hemodynamic response. | | | | | | | | | + + documented in this encounter Visit Diagnoses + + | Diagnosis | + + | Venous pressure increased Other specified circulatory system disorders | + + documented in this encounter"
--- OUTSIDE RECORDS SUMMARY | ~2019-05-09 | XMS | Encounter Summary ---
Demographics + + + | Address | [address] | | | [place] [address] | + + + | Home Phone | | + + + | Preferred Language | Unknown | + + + | Marital Status | Unknown | + + + | Faith Affiliation | Unknown | + + + | Race | Unknown | + + + | Ethnic Group | Unknown | + + + Author + + + | Author | [facility] | | | and [place] | + + + | Organization | [facility] | | | and [...] Team Providers + +------+ + | Care Dependency Program Director Name | Role | Phone | + +------+ + PCP | Unavailable | + +------+ + Encounter Details +--------+ + + + + | Date | Type | Department | Care Team | Description | +--------+ + + + + | 12/16/ | Hospital | [facility] | Conversion | Clotted dialysis | | 2014 | Encounter | CENTER CV INTRA OP | Transaction, | access, subsequent | | | | [address] | Provider Unknown | encounter (HCC) | | | | [place], [place] | [phone] | | | | | [address] | | | | | | [phone] | Alexx Gutierrez MD | | | | | | [address] [place] | | | | | | [address] [place], [place] | | | | | | [id number] | | | | | | | [...] (none) Author Type: Registered Nurse Filed: 12/16/13 1538 Date of Service: 12/16/13 153 Status: Signed Dismantler: Marie Naik RN (Registered Nurse) Pt tolerated [...] 2019 | Visit | | [address] [place] | | | | | | [address] [place], [place] | | | | | | [address] | | | | | | | [...] results and hemodynamic | | | results. [id number], 73498, 76595, 64423 | | + + + + + [...] needle | | | and exchanged for 6-Macedonian short sheath over 0.035 angled Glidewire. | | | Using combination of 4-Macedonian angled [place] catheter and 0.035 angled | | | [...] | macerated clot was aspirated using a 6-Macedonian dilator through the | | | 6-Macedonian sheath. Additionally, balloon maceration or thrombus | [...] of adequate | | conscious sedation, independent fdc supervision of the conscious sedation | | [...] Micropuncture needle | | and exchanged for 6-Macedonian short sheath over 0.035 angled Glidewire. Using combination | | of 4-Macedonian angled [place] catheter and 0.035 angled Glidewire, it was [...] and macerated clot was aspirated using a 6-Macedonian dilator | | through the 6-Macedonian sheath. Additionally, balloon maceration or thrombus performed [...] | | anatomic results and hemodynamic results. [id number], 31482, 14137, 59301 Electronically | | signed by Ziyad Russ [...] results and hemodynamic | | | results. 77320, 61563, 61003, 94665 | | + + + + + [...] needle | | | and exchanged for 6-Macedonian short sheath over 0.035 angled Glidewire. | | | Using combination of 4-Macedonian angled [place] catheter and 0.035 angled | | | [...] | macerated clot was aspirated using a 6-Macedonian dilator through the | | | 6-Macedonian sheath. Additionally, balloon maceration or thrombus | [...] of adequate | | conscious sedation, independent fdc supervision of the conscious sedation | | [...] Micropuncture needle | | and exchanged for 6-Macedonian short sheath over 0.035 angled Glidewire. Using combination | | of 4-Macedonian angled [place] catheter and 0.035 angled Glidewire, it was [...] and macerated clot was aspirated using a 6-Macedonian dilator | | through the 6-Macedonian sheath. Additionally, balloon maceration or thrombus performed [...] | | anatomic results and hemodynamic results. 20960, 00333, 71424, [id number] Electronically | | signed by Ziyad Russ MD on 12/16/2013 3:20 PM | + + documented in this encounter Visit Diagnoses + + | Diagnosis | + + | Clotted dialysis access, subsequent encounter (HCC) | + + documented in this encounter"
--- OUTSIDE RECORDS SUMMARY | ~2019-05-09 | XMS | Encounter Summary ---
Demographics + + + | Address | [address] | | | [place] [address] | + + + | Home Phone | | + + + | Preferred Language | Unknown | + + + | Marital Status | Unknown | + + + | Gnosticist Affiliation | Unknown | + + + [...] Team Providers + +------+ + | Care Reaming Machine Operator For Plastic Name | Role | Phone | + +------+ + PCP | Unavailable | + +------+ + Encounter Details +--------+ + + + + | Date | Type | Department | Care Team | Description | +--------+ + + + + | 08/22/ | Hospital | [facility] | Conversion | ESRD (end stage | | 2012 | Encounter | CENTER CV INTRA OP | Transaction, | renal disease) ([facility]) | | | | [address] | Provider Unknown | | | | | [place], [place] | [phone] | | | | | [address] | | | | | | [phone] | Shashi Bruner MD | | | | | | [address] | | | | | | [place] [address] | | | | | | [phone] | | | | | | | [...] Interventional Radiology Author Type: Physician Filed: 08/23/11 9259 Date of Service: 08/23/111499 Status: Signed Cattyman: Shashi Bruner (Physician) [facility] Service: Interventional Radiology Post-Procedure Discharge Note [...] up: Alexx Gutierrez MD [address], [facility] 160 [facility] [address] Discharge Medications: Discharge Medication List as of 08/23/2011 2:51 PM CONTINUE these medications which have NOT CHANGED Details amlodipine (NORVASC) 10 MG tablet Take 10 mg by mouth daily. , Until Discontinued, Histori sol Med !! B Qtimxus-J-Pfzvn Acid (STERLING-BRITT PO) Take by mouth daily. [...] , Until Discontinued, Historical Med !! B Awuwqxi-O-Igekv Acid (STERLING-BRITT) TABS Take 1 tablet by mouth daily., Starting 2, Until Discontinued, Normal !! vitamin B wfazydq-K-vpmxx acid (SUPER B VITAMINS) 0.8 MG TABS [...] Date of Service: 08/23/11 1300 Status: Signed Cattyman: Shashi Bruner (Physician) [facility] Service: Radiology Sedation Note See separate procedure [...] Capnometry: No IV access: yes Suction: yes deflector operator: Yes Sedation agent(s) used: Versed, Fentanyl I [...] | Visit | | [address] [facility] | | | | | | 160 [place], [place] | | | | | | [address] | | | | | | | [...] | | | conscious sedation, and independent half-way supervision was | | | performed throughout [...] | accessed directed centrally with the standard 4-Egyptian micropuncture | | | set. Contrast was [...] then secured with a | | | 5-Egyptian sheath. Access was obtained into the venous [...] maintenance of adequate conscious sedation, and independent half-way | | supervision was performed throughout the [...] directed | | centrally with the standard 4-Egyptian micropuncture set. Contrast was then injected | [...] fistula. Access was then secured with a 5-Egyptian sheath. Access was obtained into the | [...] | | | conscious sedation, and independent half-way supervision was | | | performed throughout [...] | accessed directed centrally with the standard 4-Egyptian micropuncture | | | set. Contrast was [...] then secured with a | | | 5-Egyptian sheath. Access was obtained into the venous [...] achieved. Electronically | | | signed by hSashi Bruner DO on 08/23/2011 7:30 PM | [...] maintenance of adequate conscious sedation, and independent half-way | | supervision was performed throughout the [...] directed | | centrally with the standard 4-Egyptian micropuncture set. Contrast was then injected | [...] fistula. Access was then secured with a 5-Egyptian sheath. Access was obtained into the | [...] 8 mm x 4 | | cm Ugs angioplasty balloon. However, post angioplasty angiogram revealed [...] | | | conscious sedation, and independent half-way supervision was | | | performed throughout [...] | accessed directed centrally with the standard 4-Egyptian micropuncture | | | set. Contrast was [...] then secured with a | | | 5-Egyptian sheath. Access was obtained into the venous [...] maintenance of adequate conscious sedation, and independent half-way | | supervision was performed throughout the [...] directed | | centrally with the standard 4-Egyptian micropuncture set. Contrast was then injected | [...] fistula. Access was then secured with a 5-Egyptian sheath. Access was obtained into the | [...] | | | conscious sedation, and independent half-way supervision was | | | performed throughout [...] | accessed directed centrally with the standard 4-Egyptian micropuncture | | | set. Contrast was [...] then secured with a | | | 5-Egyptian sheath. Access was obtained into the venous [...] maintenance of adequate conscious sedation, and independent half-way | | supervision was performed throughout the [...] directed | | centrally with the standard 4-Egyptian micropuncture set. Contrast was then injected | [...] fistula. Access was then secured with a 5-Egyptian sheath. Access was obtained into the | [...]
--- OUTSIDE RECORDS SUMMARY | ~2019-05-09 | XMS | Encounter Summary ---
Demographics + + + | Address | [address] | | | [place] [address] | + + + | Home Phone [...] + + | Author | [facility] | + + + [...] Team Providers + +------+ + | Care Fashion Model Name | Role | Phone | + [...] | | | | | [place]e N[place], | | | | | | [place] [address] | | | +--------+ + + + [...] + + + | [facility] - | [address] | [place] [address] | | | IMMUNOGENETICS/TRANS | [address] | | | | PLANT LAB[facility]ORY | | | | + + + + + documented in this encounter Visit Diagnoses Not on filedocumented in this encounter"
--- OUTSIDE RECORDS SUMMARY | ~2019-05-09 | XMS | Clinical Summary ---
Demographics + + + | Address | [address] | | | [place] [address] | + + + | Home Phone [...] Team Providers + +------+ + | Care Kohinoor Operator Name | Role | Phone | + +------+ + | Oziel Michael MD | PCP | | + +------+ + Source Comments MARK is fully live on both [facility] and [facility] InPatient.[facility] Allergies No Known Allergies Medications + + [...] 05/30/2016 | + + + | Other assisted (current) drug therapy | 05/30/2016 | + [...] + + | [facility] - | [address] | [place] [address] | | | IMMUNOGENETICS/TRANS | [address] [...] [facility] - | [address] | [place] [address] | | | IMMUNOGENETICS/TRANS | [address] [...] | | | | | | | [address] | | + +--------+ +--------+ + +--------+ | MEDICAID [place] | OHP | [id number] | | [phone] | [address] | [address] | | | PLUS | | [phone] | [address] | [phone] | id | | | OPEN | | esent | | [place] | | | | CARD | | | | [phone] | | + +--------+ +--------+ + +--------+ [...] Self | [birth year] | [address] | | | al/Fam | | 1961 | [phone] | [place] | | | alexsandra | | | 2 (Home) | [address] | + +--------+ +--------+ + +"
--- OUTSIDE RECORDS SUMMARY | ~2019-05-09 | XMS | Encounter Summary ---
Demographics + + + | Address | [address] | | | [place] [address] | + + + | Home Phone | | + + + | Preferred Language | Unknown | + + + | Marital Status | Single | + + + | Baptism Affiliation | Unknown | + + + | Race | Black or | + + + | Ethnic Group | Not or | + + + Author + + + | Author | [facility] | + + + | Organization | [facility] | + + + | Address | Unknown | + + + | Phone | Unavailable | + + + Support + + +---------+ + | Name | Relationship | Address | Phone | + + +---------+ + | Olesya Lamb | ECON | Unknown | | + + +---------+ + Care Team Providers + +------+ + | Care Industrial Maintenance Manager Name | Role | Phone | [...] | | | | | [place], | | | | | | [place] [address] | | | +--------+ + + + [...] [facility] - | [address] | [place] [address] | | | IMMUNOGENETICS/TRANS | [address] [...] [facility] - | [address] | [place] [address] | | | IMMUNOGENETICS/TRANS | [address] | | | | PLANT LABORATORY | | | | + + + + + documented in this encounter Visit Diagnoses Not on filedocumented in this encounter"
--- OUTSIDE RECORDS SUMMARY | ~2019-05-09 | XMS | Encounter Summary ---
Demographics + + + | Address | [address] | | | [place] [address] | + + + | Home Phone | | + + + | Preferred Language | Unknown | + + + | Marital Status | Single | + + + | Tenriism Affiliation | Unknown | + + + | Race | Black or | + + + | Ethnic Group | Not or | + + + Author + + + | Author | [facility] | + + + | Organization | [facility] | + + + | Address | Unknown | + + + | Phone | Unavailable | + + + Support + + +---------+ + | Name | Relationship | Address | Phone | + + +---------+ + | Olesya Lamb | ECON | Unknown | | + + +---------+ + Care Team Providers + +------+ + | Care Feeder Driver Name | Role | Phone | + +------+ + | Oziel Michael MD | PCP | | + +------+ + Encounter Details +--------+ + + + + | Date | Type | Department | Care Team | Description | +--------+ + + + + | 08/18/ | Ancillary | LAB IMMUNOGENETIC | | | | 2014 | Orders | [facility] | | | | | | [address] | | | | | | [place], | | | | | | [place] [address] | | | +--------+ + + + [...] FLOW HLA AB PRA | Routin | 08/18/2014 | | | | SCREEN I/II | e | 1:49 PM | | | | | | PDT | | | + +--------+ + + + documented in this encounter Results LIT FLOW HLA AB PRA SCREEN I/II (08/18/2014 1:49 PM PDT) + + | Specimen | + + | Blood - Blood | + + + + + + + | Performing | Address | City/State/Zipcode | Phone Number | | Organization | | | | + + + + + | [facility] - | [address] | [place] [address] | | | IMMUNOGENETICS/TRANS | [address] | | | | PLANT LABORATORY | | | | + + + + + documented in this encounter Visit Diagnoses Not on filedocumented in this encounter"
--- OUTSIDE RECORDS SUMMARY | ~2019-05-09 | XMS | Encounter Summary ---
Demographics + + + | Address | [address] | | | [place] [address] | + + + | Home Phone [...] Organization | [facility] [...] Team Providers + +------+ + | Care Door To Door Fundraising Collector Name | Role | Phone | + +------+ + PCP | Unavailable | + +------+ + Encounter Details +--------+ + + + + | Date | Type | Department | Care Team | Description | +--------+ + + + + | 11/30/ | Orders Only | [facility] | Alexx Gutierrez MD | | | 2018 | | NEPHROLOGY [place] | [address] [place] | | | | | [address] [place] | [address] [place], [place] | | | | | 160 [place], [place] | [address] | | | | | [address] | | | | | | [phone] | | | +--------+ + + + [...] | Visit | | [address] [facility] | | | | | | 160 [facility] [place] | | | | | | [address] | | | | | | | | +--------+---------+ + + + documented as of this encounter Procedures + +--------+ + + + | Procedure Name | Priori | Date/Time | Associated Diagnosis | Comments | | | ty | | | | + +--------+ + + + | EXTERNAL LAB: | Routin | 11/30/2018 | | Results for this | | TACROLIMUS LEVEL, | e | 2:30 PM | | procedure are in the | | LC-MS/MS | | PDT | | results section. | + +--------+ + + + | EXTERNAL LAB: CBC | Routin | 11/30/2018 | | Results for this | | | e | 2:30 PM | | procedure are in the | | | | PDT | | results section. | + +--------+ + + + | URINALYSIS WITH | Routin | 11/30/2018 | | Results for this | | MICROSCOPIC IF | e | 2:30 PM | | procedure are in the | | INDICATED | | PDT | | results section. | + +--------+ + + + | PSA, REFLEX | Routin | 11/30/2018 | | Results for this | | | e | 2:30 PM | | procedure are in the | | | | PDT | | results section. | + +--------+ + + + | ALT | Routin | 11/30/2018 | | Results for this | | | e | 2:30 PM | | procedure are in the | | | | PDT | | results section. | + +--------+ + + + | PROTEIN/CREATININE | Routin | 11/30/2018 | | Results for this | | RATIO, URINE | e | 2:30 PM | | procedure are in the | | | | PDT | | results section. | + +--------+ + + + | AST | Routin | 11/30/2018 | | Results for this | | | e | 2:30 PM | | procedure are in the | | | | PDT | | results section. | + +--------+ + + + | PARATHYROID HORMONE, | Routin | 11/30/2018 | | Results for this | | INTACT | e | 2:30 PM | | procedure are in the | | | | PDT | | results section. | + +--------+ + + + | MAGNESIUM | Routin | 11/30/2018 | | Results for this | | | e | 2:30 PM | | procedure are in the | | | | PDT | | results section. | + +--------+ + + + | CK TOTAL | Routin | 11/30/2018 | | Results for this | | | e | 2:30 PM | | procedure are in the | | | | PDT | | results section. | + +--------+ + + + | RENAL FUNCTION PANEL | Routin | 11/30/2018 | | Results for this | | | e | 2:30 PM | | procedure are in the | | | | PDT | | results section. | + +--------+ + + + documented in this encounter Results PSA, Reflex (11/30/2018 2:30 PM PDT) + +-------+ + + + | Component | Value | Ref Range | Performed | Pathologist | | | | | At | Signature | + +-------+ + + + | PSA, | 0.310 | 0.0 - 4.0 | EXTERNAL | | | External | [...] + + External Lab: Tacrolimus Level, LC-MS/MS (11/30/2018 2:30 PM PDT) + +-------+ + + + | Component | Value | Ref Range | Performed | Pathologist | | | | | At | Signature | + +-------+ + + + | Tacrolimus | 12.1 | | EXTERNAL | | | Level [...] + +---------+ + + Protein/Creatinine Ratio, Urine (11/30/2018 2:30 PM PDT) + + + + + + | Component | Value | Ref Range | Performed | Pathologist | | | | | At | Signature | + + + + + + | Protein/Cre | 2928.1 (A)Comment: Urine | 0 - 150 | EXTERNAL | | | at Ratio | total protein is | | LAB | | | | markedly elevated a | | | | | | dilution was required. | | | | + + + [...] + + Urinalysis with Microscopic if Indicated (11/30/2018 2:30 PM PDT) + + + + + [...] + + + | Spec Grav, | 1.016 | 1.005 - 1.030 | [...] + + + + | Ketones | n | | EXTERNAL | | | | | | LAB | | + + + + + + | Bilirubin, | Negative | | EXTERNAL | | | Urine | | | LAB | | + + + + + + | Glucose, | TraceComment: Small | | EXTERNAL | | | Urine | | | LAB | | + + + + + + + + | Specimen | + + | Urine specimen | | (specimen) | + + + + + | Narrative | Performed At | + + + | Casts: Negative WBC: 0 RBC: 0 Epithelial: Negative Crystals: | EXTERNAL LAB | | Negative Bacteria: Negative | | + + + + +---------+ + + | Performing | Address | City/State/Zipcode | Phone Number | | Organization | | | | + +---------+ + + | EXTERNAL LAB | | | | + +---------+ + + External Lab: CBC (11/30/2018 2:30 PM PDT) + + + + + + | Component | Value | Ref Range | Performed | Pathologist | | | | | At | Signature | + + + + + + | WBC | 3.6 (A) | 4.5 - 11.0 10 | EXTERNAL | | | | | | LAB | | + + + + + + | RED CELL | 5.16 | 4.3 - 5.7 10 | EXTERNAL | | | COUNT | | | LAB | | + + + + + + | Hgb | 14.3 | 13.5 - 18.0 | EXTERNAL | | | | | g/dL | LAB | | + + + + + + | Hematocrit, | 4.8 (A) | 41 - 50 % | EXTERNAL | | | POC | | | LAB | | + + + + + + | MCV | 86.8 | 81 - 99 fL | EXTERNAL [...] + + + + | Platelet | Comment: Unable to | K/ L | EXTERNAL | | | Count | complete platelet count | | LAB | | | Plasma | due to clumping. | | | | | | Platelets appear | | | | | | adequate | | | | + + + + + + | RDW-CV | 14.9 | 10.5 - 15.0 % | EXTERNAL [...] + + + | % Segmented | 60.5 | 39 - 80 % | EXTERNAL | | | | | | LAB | | | Neutrophils | | | | | + + + + + + | % | 25.6 | 24 - 44 % | EXTERNAL | | | Lymphocytes | | | LAB | | + + + + + + | % Monocytes | 11.3 | 0 - 12 % | EXTERNAL | | | | | | LAB | | + + + + + + | % | 1.3 | 0 - 6 % | EXTERNAL | | | Eosinophils | | | LAB | | + + + + + + | % Basophils | 1.3 | 0 - 2 % | EXTERNAL [...] | | + +---------+ + + ALT (11/30/2018 2:30 PM PDT) + +-------+ + + + | Component | Value | Ref Range | Performed | Pathologist | | | | | At | Signature | + +-------+ + + + | ALT | 11 | 7 - 52 U/L | EXTERNAL [...] | | + +---------+ + + AST (11/30/2018 2:30 PM PDT) + +-------+ + + + | [...] + +---------+ + + Parathyroid Hormone, Intact (11/30/2018 2:30 PM PDT) + +-------+ + + + | Component | Value | Ref Range | Performed | Pathologist | | | | | At | Signature | + +-------+ + + + | PTH INTACT | 46.26 | 15 - 65 pg/mL | EXTERNAL [...] | | + +---------+ + + Magnesium (11/30/2018 2:30 PM PDT) + +---------+ + + + | [...] | + +---------+ + + CK Total (11/30/2018 2:30 PM PDT) + +---------+ + + + | Component | Value | Ref Range | Performed | Pathologist | | | | | At | Signature | + +---------+ + + + | CK, Total | 246 (A) | 24 - 195 U/L | [...] + +---------+ + + Renal Function Panel (11/30/2018 2:30 PM PDT) + + + + + [...] + + + + | BUN | 26 (A) | 6 - 23 mg/dL | EXTERNAL | | | | | | LAB | | + + + + + + | Creatinine | 1.78 (A) | 0.70 - 1.33 | EXTERNAL | | | | | mg/dL | LAB | | + + + + + + | PHOSPHORUS | 2.8 | 2.5 - 5.0 mg/dL | EXTERNAL [...] + + + + | CO2 | 27 | 19 - 31 mmol/L | EXTERNAL | | | | | | LAB | | + + + + + + | Anion Gap | 16.2 | 7 - 21 mmol/L | EXTERNAL | | | | | | LAB | | + + + + + + | eGFR if not | | | EXTERNAL | | | | | | LAB | | | PERUVIAN | | | | | + + [...] + + + + | Estimated | 39 (A) | 60 - 140 mg/dL | [...]
--- OUTSIDE RECORDS SUMMARY | ~2019-05-09 | XMS | Encounter Summary ---
Demographics + + + | Address | [address] | | | [place] [address] | + + + | Home Phone | | + + + | Preferred Language | Unknown | + + + | Marital Status | Unknown | + + + | Jew Affiliation | Unknown | + + + | Race | Unknown | + + + | Ethnic Group | Unknown | + + + Author + + + | Author | [facility] | | | and [place] | + + + | Organization | [facility] | | [...] Team Providers + +------+ + | Care Bottom Presser Name | Role | Phone | + +------+ + PCP | Unavailable | + +------+ + Encounter Details +--------+ + + + + | Date | Type | Department | Care Team | Description | +--------+ + + + + | 08/22/ | Hospital | [facility] | Conversion | ESRD (end stage | | 2012 | Encounter | CENTER CV INTRA OP | Transaction, | renal disease) ([facility]) | | | | [address] | Provider Unknown | | | | | [place], [place] | [phone] | | | | | [address] | | | | | | [phone] | Shashi Bruner MD | | | | | | [address] | | | | | | [place] [address] | | | | | | [phone] | | | | | | | [...] Interventional Radiology Author Type: Physician Filed: 08/23/11 2356 Date of Service: 08/23/111499 Status: Signed Breastfeeding Educator: Shashi Bruner (Physician) [facility] Service: Interventional Radiology Post-Procedure Discharge Note DISCHARGE [...] up: Alexx Gutierrez MD [address], [facility] 160 [facility] [address] Discharge Medications: Discharge Medication List as of 08/23/2011 2:51 PM CONTINUE these medications which have NOT CHANGED Details amlodipine (NORVASC) 10 MG tablet Take 10 mg by mouth daily. , Until Discontinued, Histori sol Med !! B Kbodiye-T-Sjxlq Acid (STERLING-BRITT PO) Take by mouth daily. [...] , Until Discontinued, Historical Med !! B Edtbvhb-G-Mwiop Acid (STERLING-BRITT) TABS Take 1 tablet by mouth daily., Starting 2, Until Discontinued, Normal !! vitamin B szjocsu-T-mfqdw acid (SUPER B VITAMINS) 0.8 MG TABS [...] Date of Service: 08/23/11 1300 Status: Signed Breastfeeding Educator: Shashi Bruner (Physician) [facility] Service: Radiology Sedation Note See separate procedure [...] Capnometry: No IV access: yes Suction: yes air sealing technician: Yes Sedation agent(s) used: Versed, Fentanyl I [...] | Visit | | [address] [facility] | | | | | | 160 [place], [place] | | | | | | [address] | | | | | | | [...] | | | conscious sedation, and independent [facility] supervision was | | | performed throughout [...] | accessed directed centrally with the standard 4-Omani micropuncture | | | set. Contrast was [...] then secured with a | | | 5-Omani sheath. Access was obtained into the venous [...] maintenance of adequate conscious sedation, and independent [facility] | | supervision was performed throughout the [...] directed | | centrally with the standard 4-Omani micropuncture set. Contrast was then injected | [...] fistula. Access was then secured with a 5-Omani sheath. Access was obtained into the | [...] | | | conscious sedation, and independent [facility] supervision was | | | performed throughout [...] | accessed directed centrally with the standard 4-Omani micropuncture | | | set. Contrast was [...] then secured with a | | | 5-Omani sheath. Access was obtained into the venous [...] maintenance of adequate conscious sedation, and independent [facility] | | supervision was performed throughout the [...] directed | | centrally with the standard 4-Omani micropuncture set. Contrast was then injected | [...] fistula. Access was then secured with a 5-Omani sheath. Access was obtained into the | [...] | | | conscious sedation, and independent [facility] supervision was | | | performed throughout [...] | accessed directed centrally with the standard 4-Omani micropuncture | | | set. Contrast was [...] then secured with a | | | 5-Omani sheath. Access was obtained into the venous [...] maintenance of adequate conscious sedation, and independent [facility] | | supervision was performed throughout the [...] directed | | centrally with the standard 4-Omani micropuncture set. Contrast was then injected | [...] fistula. Access was then secured with a 5-Omani sheath. Access was obtained into the | [...] | | | conscious sedation, and independent [facility] supervision was | | | performed throughout [...] | accessed directed centrally with the standard 4-Omani micropuncture | | | set. Contrast was [...] then secured with a | | | 5-Omani sheath. Access was obtained into the venous [...] maintenance of adequate conscious sedation, and independent [facility] | | supervision was performed throughout the [...] directed | | centrally with the standard 4-Omani micropuncture set. Contrast was then injected | [...] fistula. Access was then secured with a 5-Omani sheath. Access was obtained into the | [...]
--- OUTSIDE RECORDS SUMMARY | ~2019-05-09 | XMS | Encounter Summary ---
Demographics + + + | Address | [address] | | | [place] [address] | + + + | Home Phone | | + + + | Preferred Language | Unknown | + + + | Marital Status | Single | + + + | Temple Affiliation | Unknown | + + + | Race | Black or | + + + | Ethnic Group | Not or | + + + Author + + + | Author | [facility] | + + [...] Team Providers + +------+ + | Care Lokie Driver Name | Role | Phone | [...] | | | | | [place], | | | | | | [place] [address] | | | +--------+ + + + [...] [facility] - | [address] | [place] [address] | | | IMMUNOGENETICS/TRANS | [address] [...] [facility] - | [address] | [place] [address] | | | IMMUNOGENETICS/TRANS | [address] | | | | PLANT LABORATORY | | | | + + + + + documented in this encounter Visit Diagnoses Not on filedocumented in this encounter"
--- OUTSIDE RECORDS SUMMARY | ~2019-05-09 | XMS | Encounter Summary ---
Demographics + + + | Address | [address] | | | [place] [address] | + + + | Home Phone [...] + + | Author | [facility] | + + + [...] Team Providers + +------+ + | Care [place] Assistant Name | Role | Phone | + +------+ + | Oziel Michael MD | PCP | | + +------+ + Encounter Details +--------+ + + + + | Date | Type | Department | Care Team | Description | +--------+ + + + + | 01/21/ | Ancillary | LAB IMMUNOGENETIC | | | | 2013 | Orders | [facility] | | | | | | [address] | | | | | | [place], | | | | | | [place] [address] | | | +--------+ + + + [...] FLOW HLA AB PRA | Routin | 01/21/2014 | | | | SCREEN I/II | e | 8:11 AM | | | | | | PDT | | | + +--------+ + + + documented in this encounter Results LIT FLOW HLA AB PRA SCREEN I/II (01/21/2014 8:11 AM PDT) + + | Specimen | + + | Blood - Blood | + + + + + + + | Performing | Address | City/State/Zipcode | Phone Number | | Organization | | | | + + + + + | [facility] - | [address] | [place] [address] | | | IMMUNOGENETICS/TRANS | [address] | | | | [facility] | | | | + + + + + documented in this encounter Visit Diagnoses Not on filedocumented in this encounter"
--- OUTSIDE RECORDS SUMMARY | ~2019-05-09 | XMS | Encounter Summary ---
Demographics + + + | Address | [address] | | | [place] [address] | + + + | Home Phone [...] Team Providers + +------+ + | Care Behavioral Health Associate Name | Role | Phone | + +------+ + | Oziel Michael MD | PCP | | + +------+ + Encounter Details +--------+ + + + + | Date | Type | Department | Care Team | Description | +--------+ + + + + | 08/07/ | Orders Only | [facility] | Conversion | | | 2018 | | NEPHROLOGY PERRY | Transaction, | | | | | [address] | Provider Unknown | | | | | [address] [place], [place] | | | | | | [address] | (Fax) | | | | | [phone] | | | +--------+ + + + [...] 2019 | Visit | | [address] [facility] | | | | | | [address] [place], [place] | | | | | | [address] | | | | | | | [...]
--- OUTSIDE RECORDS SUMMARY | ~2019-05-09 | XMS | Encounter Summary ---
Demographics + + + | Address | [address] | | | [place] [address] | + + + | Home Phone | | + + + | Preferred Language | Unknown | + + + | Marital Status | Single | + + + | Moravian Affiliation | Unknown | + + + | Race | Black or | + + + | Ethnic Group | Not or | + + + Author + + + | Author | [facility] | + + + | Organization | [...] Team Providers + +------+ + | Care Morning Show Producer Name | Role | Phone | + [...] | | | | | [place] [place], | | | | | | [place] [address] | | | +--------+ + + + [...] [facility] - | [address] | [place] [address] | | | IMMUNOGENETICS/TRANS | [address] | | | | [facility] | | | | + + + + + documented in this encounter Visit Diagnoses Not on filedocumented in this encounter"
--- OUTSIDE RECORDS SUMMARY | ~2019-05-09 | XMS | Encounter Summary ---
Demographics + + + | Address | [address] | | | [place] [address] | + + + | Home Phone | | + + + | Preferred Language | Unknown | + + + | Marital Status | Unknown | + + + | Christianity Affiliation | Unknown | + + + | Race | Unknown | + + + | Ethnic Group | Unknown | + + + Author + + + | Author | [facility] | | | and [place] | + + + | Organization | [facility] | | [...] Team Providers + +------+ + | Care Mycologist Name | Role | Phone | + +------+ + | Oziel Michael MD | PCP | | + +------+ + Encounter Details +--------+ + + + + | Date | Type | Department | Care Team | Description | +--------+ + + + + | 10/11/ | Orders Only | [facility] | Adrian Shaffer MD | | | 2010 | | [facility] | [address] [facility] | | | | | CLINICAL LABORATORY | [place], [place] | | | | | [address] | [address] | | | | | [place], [place] | [phone] | | | | | [address] | | | | | | [phone] | | | +--------+ + + + [...] | | | | | | [address] [place], [place] | | | | | | [address] | | | | | | | | +--------+---------+ + + + documented as of this encounter Procedures + +--------+ + + + | Procedure Name | Priori | Date/Time | Associated Diagnosis | Comments | | | ty | | | | + +--------+ + + + | STREPTOCOCCUS | Timed | 10/11/2010 | | Results for this | | PNEUMONIAE AG, URINE | | 9:46 PM | | procedure are in the | | | | PDT | | results section. | + +--------+ + + + documented in this encounter Results Streptococcus Pneumoniae Ag, Urine (10/11/2010 9:46 PM PDT) + + | Specimen | + + | | + + + + + | Narrative | Performed At | + + + | S PNEUMONIAE AG, UR NEGATIVE A NEGATIVE | EXTERNAL LAB | | S. PNEUMONIAE URINARY ANTIGEN TEST RESULT DOES NOT EXCLUDE INFECTION | | | WITH S. PNEUMONIAE. CLINICAL CORRELATION IS RECOMMENDED. Testing | | | performed at [facility], [address] [place] [id number] | | + + + + +---------+ + + | Performing | Address | City/State/Zipcode | Phone Number | | Organization | | | | + +---------+ + + | EXTERNAL LAB | | | | + +---------+ + + documented in this encounter Visit Diagnoses Not on filedocumented in this encounter"
--- OUTSIDE RECORDS SUMMARY | ~2019-05-09 | XMS | Encounter Summary ---
Demographics + + + | Address | [address] | | | [place] [address] | + + + | Home Phone | | + + + | Preferred Language | Unknown | + + + | Marital Status | Unknown | + + + | Hindu Affiliation | Unknown | + + + | Race | Unknown | + + + | Ethnic Group | Unknown | + + + Author + + + | Author | [facility] | | | and [place] | + + + | Organization | [facility] | | | [...] Team Providers + +------+ + | Care Sheet Rock Taper Helper Name | Role | Phone | + +------+ + PCP | Unavailable | + +------+ + Encounter Details +--------+ + + + + | Date | Type | Department | Care Team | Description | +--------+ + + + + | 12/31/ | Hospital | [facility] | Emmett Solitario MD | Elevated troponin; | | 2016 - | Encounter | [facility] | [address] | Serum potassium | | | | CARE FLOOR [address] | [place] [address] | elevated; ESRD (end | | 01/01/ | | [address] | [phone] | stage renal disease) | | 2016 | | [place], [place] | | ([facility]) | | | | [address] | | | | | | [phone] | | | +--------+ + + + [...] Date of Service: 01/02/16 1202 Status: Signed Chief Librarian Work With Blind: Hipolito Bonilla MD (Physician) Related Notes: Original Note by Hipolito Bonilla MD (Physician) filed at 01/02/16 1204 [facility] Service: Hospitalist Discharge Summary Date of Admission: [...] whoWho was referred to our hospital from [facility] of epigastric pain and mildly- positive troponin [...] tablet 4 01/01/2016 at Unknown time B Bcrvvyz-M-Mtijf Acid (STERLING-BRITT) TABS TAKE 1 BY MOUTH [...] hours. No results for input(s): PHART, PO2ART, DRW2UBB, W1RFVWSQ, BEART in the last 168 hours. Recent [...] other data, potentially affecting final categorization. 1. [place] [employer] and [place] [employer] Scientific Statement. Circulation (2008 ); 118: p 8941-6038 Selection Text Definition Low Risk 1.Normal or [...] on file. Follow up: Francisco Mitchell MD [address] [place] [address] Medication List CHANGE how you take these [...] Date of Service: 01/02/16 1209 Status: Signed Chief Librarian Work With Blind: Gemma Doe RN (Registered Nurse) Pt d/c'd [...] Service: Nephrology Author Type: Physician Filed: 01/08/16 9660 Date of Service: 01/02/16 100 Status: Signed Chief Librarian Work With Blind: Jay Schaefer MD (Physician) [facility] Service: NEPHROLOGY progress Note Dwale Finger 55 y.o. [phone] [id number] male FRANCISCO Escobar STEPHEN [facility] Day: 55 y.o male with PMH ESRD [...] GRAFT REPAIR/REVISION; Surgeon: Leonardo Dickey MD; Location: [facility]; Service: Vascular; Laterality: Left; Left arm fistula interposition graft Prescriptions prior to admission Medication Sig Dispense Refill Last Dose amLODIPine (NORVASC) 10 MG tablet Take 1 tablet by mouth daily. Pt monitors his bp and takes accordingly (Patient taking differently: Take 20 mg by mouth daily. Pt monitors his bp and takes accordingly) 90 tablet 4 01/01/2016 at Unknown time B Eoojlff-A-Qdaik Acid (STERLING-BRITT) TABS TAKE 1 BY MOUTH [...] on file Social History Narrative lives in [facility] Scheduled Medications amLODIPine 10 mg Oral Daily [...] chloride 10 mL Intravenous Q8H vitamin B qukukvb-V-xpzrr acid 1 tablet Oral Daily Continuous Infusions [...] QTC Calculation (Bezet) 437 ms Calculated P [place] 48 degrees Calculated R [place] 10 degrees Calculated T [place] 24 degrees Diagnosis Normal sinus rhythm Possible Left atrial enlargement Borderline ECG When compared with ECG of 31-OCT-2013 07:22, No significant change was found This ECG contains Unconfirmed Interpretation Statements. See ED Record for Physician Inter pretation. Confirmed by MUSE READ ONLY, -COMPUTER ([id number]), newspaper or periodical editor JASBIR MONZON ([id number]) on 01/02/2016 5:52 :17 [...] hypertension, benign ESRD (end stage renal disease) ([facility]) ASSESSMENT & PLAN ESRD ON HD No [...] earlier and charting completed later Dictation software, [employer], used which may contain error for similar sounding words even af ter review. Personal communication requested for any clarification. onversion Transa ction, Provider Unknown - 01/02/2016 4:35 AM PDT Progress Notes by Ryan Reyes RPH at 01/02/16434 Author: Ryan Reyes RPH Service: (none) Author Type: Pharmacist Filed: 01/02/16434 Date of Service: 01/02/16434 Status: Signed Chief Librarian Work With Blind: Ryan Reyes RPH (Pharmacist) Note ccl 10.2ml/min ESRD meds reviewed Pharmacy will follow [facility] 0435 docume hosseined in this encounter Plan of Treatment +--------+---------+ + + + | Date | Type | Specialty | Care Team | Description | +--------+---------+ + + + | 05/20/ | Office | Nephrology | Alexx Gutierrez MD | | | 2020 | Visit | | [address] [facility] | | | | | | [address] [place], [place] | | | | | | [address] | | | | | | | [...] affecting final | | | categorization. 1. [place] Heart Association and [place] | | | College of Cardiology Scientific Statement. Circulation (2008); 118: p | | | 6982-7494 Selection Text Definition Low Risk | | [...] Performed At | + + + | [facility] MYOCARDIAL PERFUSION SPECT - STRESS AND REST [...] Abhishek, Rad Conversion - 12/27/2018 10:15 PM [facility] | | SPECT - STRESS AND REST01/02/2016 11:31 AM HISTORY:Chest pain. TECHNIQUE:The patient was | | given 10.2 mCi of Tc 99m Cardiolite at rest and that was followed by a resting cardiac | | SPECT study. On the same day the patient was stressed using Luciano protocol under the | | direction of the [facility] level provider. At peak stress they were [...] other data, potentially affecting final categorization. 1. [place] Heart | | Association and [place] [employer] of [employer]iology Scientific Statement. Circulation (2008); | | 118: p 2709-7031 Selection Text Definition Low Risk 1.Normal or [...] EXTERNAL | | | | performed at [facility];[address] | | LAB | | | | [address];[place] | | | | | | [address] | | | | + + + [...] | | | | | | ACUTE [place] Testing | | | | | | performed at [facility];[address] | | | | | | [facility];[place], [place] | | | | | | [address] | | | | + + + [...] EXTERNAL | | | | performed at [facility];[address] | | LAB | | | | [address];[place] | | | | | | [address] | | | | + + + [...] + + | Historically converted procedure from [facility] Epic environment | EXTERNAL LAB | [...] | | | | | | [place] [address] | | | | + + + + + + | RED CELL | 4.69Comment: Testing | 4.20 - 5.70 | EXTERNAL | | | COUNT | performed at [facility], [address] | M/uL | LAB | | | | [address], | | | | | | [place] [address] | | | | + + + + + + | Hgb | 14.2Comment: Testing | 13.2 - 17.0 | EXTERNAL | | | | performed at [facility], [address] | g/dL | LAB | | | | [address], | | | | | | [place] [address] | | | | + + + + + + | Hematocrit, | 43.9Comment: Testing | 39.0 - 50.0 % | EXTERNAL | | | POC | performed at [facility], [address] | | LAB | | | [address], | | | | | | [place] [address] | | | | + + + + + + | MCV | 93.5Comment: Testing | 80.0 - 100.0 fl | EXTERNAL | | | | performed at [facility], [address] | | LAB | | | | [address], | | | | | | [place] [address] | | | | + + + + + + | MCH | 30.3Comment: Testing | 27.0 - 34.0 pg | EXTERNAL | | | | performed at [facility], [address] | | LAB | | | | [address], | | | | | | [place] [address] | | | | + + + + + + | MCHC | 32.4Comment: Testing | 32.0 - 35.5 | EXTERNAL | | | | performed at [facility], [address] | g/dL | LAB | | | | [address], | | | | | | [place] [address] | | | | + + + + + + | RDW-CV | 56.0 (H)Comment: Testing | 37 - 53 fl | EXTERNAL | | | | performed at [facility], [address] | | LAB | | | | [address], | | | | | | [place] [address] | | | | + + + + + + | Platelet | 215Comment: Testing | 150 - 400 K/uL | EXTERNAL | | | Count | performed at [facility], [address] | | LAB | | | Plasma | [address], | | | | | | [place] [address] | | | | + + + + + + | MPV | 9.6Comment: Testing | fl | EXTERNAL | | | | performed at [facility], [address] | | LAB | | | | [address], | | | | | | [place] [address] | | | | + + + + + + | Differentia | AUTOMATEDComment: | | EXTERNAL | | | l Type | Testing performed at | | LAB | | | | [facility], [address] | | | | | | [place] | | | | | | [address] | | | | + + + + + + | % Segmented | 51.31Comment: Testing | % | EXTERNAL | | | | performed at [facility], [address] | | LAB | | | Neutrophils | [address], | | | | | | [place] [address] | | | | + + + + + + | % | 31.54Comment: Testing | % | EXTERNAL | | | Lymphocytes | performed at [facility], [address] | | LAB | | | | [address], | | | | | | [place] [address] | | | | + + + + + + | % Monocytes | 12.65Comment: Testing | % | EXTERNAL | | | | performed at [facility], [address] | | LAB | | | | [address], | | | | | | [place] [address] | | | | + + + + + + | % | 3.47Comment: Testing | % | EXTERNAL | | | Eosinophils | performed at [facility], [address] | | LAB | | | | [address], | | | | | | [place] [address] | | | | + + + + + + | % Basophils | 1.03Comment: Testing | % | EXTERNAL | | | | performed at [facility], [address] | | LAB | | | | [address], | | | | | | [place] [address] | | | | + + + + + + | Absolute | 2.74Comment: Testing | 1.90 - 7.40 | EXTERNAL | | | Segmented | performed at [facility], [address] | K/uL | LAB | | | Neutrophils | [address], | | | | | | [place] [address] | | | | + + + + + + | Absolute | 1.68Comment: Testing | 1.00 - 3.90 | EXTERNAL | | | Lymphocytes | performed at [facility], [address] | K/uL | LAB | | | | [address], | | | | | | [place] [address] | | | | + + + + + + | Absolute | 0.68Comment: Testing | 0.00 - 0.80 | EXTERNAL | | | Monocytes | performed at [facility], [address] | K/uL | LAB | | | | [place], | | | | | | [place] [address] | | | | + + + + + + | Absolute | 0.19Comment: Testing | 0.00 - 0.50 | EXTERNAL | | | Eosinophils | performed at [facility], [address] | K/uL | LAB | | | | [address], | | | | | | [place] [address] | | | | + + + + + + | Absolute | 0.06Comment: Testing | 0.00 - 0.10 | EXTERNAL | | | Basophils | performed at [facility], [address] | K/uL | LAB | | | | [address], | | | | | | [place] [address] | | | | + + + [...] EXTERNAL | | | | performed at [facility], [address] | | LAB | | | | [address], | | | | | | [place] [address] | | | | + + + [...] EXTERNAL | | | | performed at [facility], [address] | | LAB | | | | [place] [address], | | | | | | [place] [address] | | | | + + + [...] + + | Hemoglobin | 5.6Comment: The Samoan | 4.0 - 6.0 % | EXTERNAL [...] | | | | | performed at [facility], [address] | | | | | | [address] [facility], | | | | | | [place] [address] | | | | + + + [...] | | | | | performed at [facility], [address] | | | | | | [facility], | | | | | | [place] [address] | | | | + + + [...] EXTERNAL | | | | performed at [facility], [address] | | LAB | | | | [address], | | | | | | [place] [address] | | | | + + + + + + | Triglycerid | 282 (H)Comment: Testing | mg/dL | EXTERNAL | | | es | performed at [facility], [address] | | LAB | | | [address], | | | | | | [place] [address] | | | | + + + + + + | HDL | 35 (L)Comment: Testing | mg/dL | EXTERNAL | | | | performed at [facility], [address] | | LAB | | | | [address], | | | | | | [place] [address] | | | | + + + + + + | LDL | 98Comment: Testing | mg/dL | EXTERNAL | | | Cholesterol | performed at [facility], [address] | | LAB | | | , | [address], | | | | | Calculated, | [place] [address] | | | | | External | [...] | | | | | [place] [address] | | | | + + + + + + | K | 4.6Comment: Testing | 3.5 - 4.9 | EXTERNAL | | | | performed at [facility], [address] | mmol/L | LAB | | | | [address], | | | | | | [place] [address] | | | | + + + + + + | Cl | 95 (L)Comment: Testing | 99 - 109 mmol/L | EXTERNAL | | | | performed at [facility], [address] | | LAB | | | | [address], | | | | | | [place] [address] | | | | + + + + + + | CO2 | 35 (H)Comment: Testing | 23 - 32 mmol/L | EXTERNAL | | | | performed at [facility], [address] | | LAB | | | | [address], | | | | | | [place] [address] | | | | + + + + + + | Anion Gap | 13Comment: Testing | 5 - 20 mmol/L | EXTERNAL | | | | performed at [facility], [address] | | LAB | | | | [address], | | | | | | [place] [address] | | | | + + + + + + | Glucose, | 99Comment: Testing | 65 - 99 mg/dL | EXTERNAL | | | Fasting | performed at [facility], [address] | | LAB | | | | [address], | | | | | | [place] [address] | | | | + + + + + + | BUN | 25Comment: Testing | 8 - 25 mg/dL | EXTERNAL | | | | performed at [facility], [address] | | LAB | | | | [address], | | | | | | [place] [address] | | | | + + + + + + | Creatinine | 10.5 (H)Comment: Testing | 0.70 - 1.30 | EXTERNAL | | | | performed at [facility], [address] | mg/dL | LAB | | | | [address], | | | | | | [place] [address] | | | | + + + + + + | BUN/Creatin | 2Comment: Testing | | EXTERNAL | | | ine Ratio | performed at [facility], [address] | | LAB | | | | [address], | | | | | | [place] [address] | | | | + + + + + + | Calcium | 10.8 (H)Comment: Testing | 8.5 - 10.5 | EXTERNAL | | | | performed at [facility], [address] | mg/dL | LAB | | | | [address], | | | | | | [place] [address] | | | | + + + [...] [address], | | | | | | [place] [address] | | | | + + + [...] EXTERNAL | | | | performed at [facility];[address] | | LAB | | | | [address];[place], [place] | | | | | | [address] | | | | + + + [...] | | | | | | ACUTE [place] Testing | | | | | | performed at [facility];[address] | | | | | | [address] [facility];[place], [place] | | | | | | [address] | | | | + + + [...] LAB | | | | performed at [facility];[address] | | | | | | [address];[place], [place] | | | | | | [address] | | | | + + + [...] EXTERNAL | | | | performed at [facility];[address] | K/uL | LAB | | | | [address];[place] | | | | | | [address] | | | | + + + + + -+ | RED CELL | 4.86Comment: Testing | 4.20 - 5.70 | EXTERNAL | | | COUNT | performed at [facility];[address] | M/uL | LAB | | | | [address];[place] | | | | | | [address] | | | | + + + + + -+ | Hgb | 15.2Comment: Testing | 13.2 - 17.0 | EXTERNAL | | | | performed at [facility];[address] | g/dL | LAB | | | | [address];[place] | | | | | | [address] | | | | + + + + + -+ | Hematocrit, | 44.9Comment: Testing | 39.0 - 50.0 % | EXTERNAL | | | POC | performed at [facility];[address] | | LAB | | | | [address];[place] | | | | | | [address] | | | | + + + + + -+ | MCV | 92.4Comment: Testing | 80.0 - 100.0 fl | EXTERNAL | | | | performed at [facility];[address] | | LAB | | | | [address];[place] | | | | | | [address] | | | | + + + + + -+ | MCH | 31.2Comment: Testing | 27.0 - 34.0 pg | EXTERNAL | | | | performed at [facility];[address] | | LAB | | | | [address];[place] | | | | | | [address] | | | | + + + + + -+ | MCHC | 33.8Comment: Testing | 32.0 - 35.5 | EXTERNAL | | | | performed at [facility];[address] | g/dL | LAB | | | | [address];[place] | | | | | | [address] | | | | + + + + + -+ | RDW-CV | 53.4 (H)Comment: Testing | 37 - 53 fl | EXTERNAL | | | | performed at [facility];[address] | | LAB | | | | [address];[place] | | | | | | [address] | | | | + + + + + -+ | Platelet | 230Comment: Testing | 150 - 400 K/uL | EXTERNAL | | | Count | performed at [facility];[address] | | LAB | | | Plasma | [address];[place] | | | | | | [address] | | | | + + + + + -+ | MPV | 9.0Comment: Testing | fl | EXTERNAL | | | | performed at [facility];[address] | | LAB | | | | [address];[place] | | | | | | [address] | | | | + + + + + -+ | Differentia | AUTOMATEDComment: | | EXTERNAL | | | l Type | Testing performed at | | LAB | | | | [facility];[address];[place] [address] | | | | + + + + + -+ | % Segmented | 50.16Comment: Testing | % | EXTERNAL | | | | performed at [facility];[address] | | LAB | | | Neutrophils | [address];[place] | | | | | | [address] | | | | + + + + + -+ | % | 29.99Comment: Testing | % | EXTERNAL | | | Lymphocytes | performed at [facility];[address] | | LAB | | | | [address];[place] | | | | | | [address] | | | | + + + + + -+ | % Monocytes | 15.53Comment: Testing | % | EXTERNAL | | | | performed at [facility];[address] | | LAB | | | | [address];[place] | | | | | | [address] | | | | + + + + + -+ | % | 3.24Comment: Testing | % | EXTERNAL | | | Eosinophils | performed at [facility];[address] | | LAB | | | | [address];[place] | | | | | | [address] | | | | + + + + + -+ | % Basophils | 1.08Comment: Testing | % | EXTERNAL | | | | performed at [facility];[address] | | LAB | | | | [address];[place] | | | | | | [address] | | | | + + + + + -+ | Absolute | 2.83Comment: Testing | 1.90 - 7.40 | EXTERNAL | | | Segmented | performed at [facility];[address] | K/uL | LAB | | | Neutrophils | [address];[place] | | | | | | [address] | | | | + + + + + -+ | Absolute | 1.69Comment: Testing | 1.00 - 3.90 | EXTERNAL | | | Lymphocytes | performed at [facility];[address] | K/uL | LAB | | | | [address];[place] | | | | | | [address] | | | | + + + + + -+ | Absolute | 0.88 (H)Comment: Testing | 0.00 - 0.80 | EXTERNAL | | | Monocytes | performed at [facility];[address] | K/uL | LAB | | | | [address];[place] | | | | | | [address] | | | | + + + + + -+ | Absolute | 0.18Comment: Testing | 0.00 - 0.50 | EXTERNAL | | | Eosinophils | performed at [facility];[address] | K/uL | LAB | | | | [address];[place] | | | | | | [address] | | | | + + + + + -+ | Absolute | 0.06Comment: Testing | 0.00 - 0.10 | EXTERNAL | | | Basophils | performed at [facility];[address] | K/uL | LAB | | | | [address];[place] | | | | | | [address] | | | | + + + + + -+ | Na | 138Comment: Testing | 135 - 145 | EXTERNAL | | | | performed at [facility];[address] | mmol/L | LAB | | | | [address];[place] | | | | | | [address] | | | | + + + + + -+ | K | 5.0 (H)Comment: SLT | 3.5 - 4.9 | EXTERNAL | | | | HEMOLYSISTesting | mmol/L | LAB | | | | performed at [facility];[address] | | | | | | [address];[place] | | | | | | [address] | | | | + + + + + -+ | Cl | 95 (L)Comment: Testing | 99 - 109 mmol/L | EXTERNAL | | | | performed at [facility];[address] | | LAB | | | | [address];[place] | | | | | | [address] | | | | + + + + + -+ | CO2 | 32Comment: Testing | 23 - 32 mmol/L | EXTERNAL | | | | performed at [facility];[address] | | LAB | | | | [address];[place] | | | | | | [address] | | | | + + + + + -+ | Anion Gap | 15Comment: Testing | 5 - 20 mmol/L | EXTERNAL | | | | performed at [facility];[address] | | LAB | | | | [address];[place] | | | | | | [address] | | | | + + + + + -+ | Glucose, | 98Comment: Testing | 65 - 99 mg/dL | EXTERNAL | | | Fasting | performed at [facility];[address] | | LAB | | | | [address];[place] | | | | | | [address] | | | | + + + + + -+ | BUN | 21Comment: Testing | 8 - 25 mg/dL | EXTERNAL | | | | performed at [facility];[address] | | LAB | | | | [address];[place] | | | | | | [address] | | | | + + + + + -+ | Creatinine | 9.2 (H)Comment: Testing | 0.70 - 1.30 | EXTERNAL | | | | performed at [facility];888 | mg/dL | LAB | | | | [address];[place] | | | | | | [address] | | | | + + + + + -+ | BUN/Creatin | 2Comment: Testing | | EXTERNAL | | | ine Ratio | performed at [facility];[address] | | LAB | | | | [address];[place] | | | | | | [address] | | | | + + + + + -+ | Calcium | 10.2Comment: Testing | 8.5 - 10.5 | EXTERNAL | | | | performed at [facility];[address] | mg/dL | LAB | | | | [address];[place] | | | | | | [address] | | | | + + + + + -+ | Protein, | 9.1 (H)Comment: Testing | 6.3 - 8.2 g/dL | EXTERNAL | | | Total | performed at [facility];[address] | | LAB | | | | [address];[place] | | | | | | [address] | | | | + + + + + -+ | Albumin | 4.2Comment: Testing | 3.6 - 5.0 g/dL | EXTERNAL | | | | performed at [facility];[address] | | LAB | | | | [address];[place] | | | | | | [address] | | | | + + + + + -+ | Globulin | 4.9Comment: Testing | 1.3 - 4.9 g/dL | EXTERNAL | | | | performed at [facility];[address] | | LAB | | | | [address];[place] | | | | | | [address] | | | | + + + + + -+ | A/G Ratio | 0.9 (L)Comment: Testing | 1.0 - 2.4 | EXTERNAL | | | | performed at [facility];[address] | | LAB | | | | [address];[place] | | | | | | [address] | | | | + + + + + -+ | Bilirubin | 0.4Comment: Testing | 0.1 - 1.5 mg/dL | EXTERNAL | | | Total | performed at [facility];[address] | | LAB | | | | [address];[place] | | | | | | [address] | | | | + + + + + -+ | ALP, | 91Comment: Testing | 35 - 115 U/L | EXTERNAL | | | External | performed at [facility];[address] | | LAB | | | | [address];[place] | | | | | | [address] | | | | + + + + + -+ | AST | 13Comment: SLT | 10 - 45 U/L | EXTERNAL | | | | HEMOLYSISTesting | | LAB | | | | performed at [facility];[address] | | | | | | [address];[place] | | | | | | [address] | | | | + + + + + -+ | ALT | 32Comment: Testing | 10 - 65 U/L | EXTERNAL | | | | performed at [facility];[address] | | LAB | | | | [address];[place] | | | | | | [address] | | | | + + + [...] | | | | | | at [facility];[address];[place] [address] | | | | + + + + + -+ | CK, Total | 437 (H)Comment: Testing | 55 - 400 U/L | EXTERNAL | | | | performed at [facility];[address] | | LAB | | | | [address];[place] | | | | | | [address] | | | | + + + [...] | | | | | performed at [facility];[address] | [address];[place] | | | | | | [address] | | | | + + + + + -+ | aPTT, | 29Comment: Testing | 23 - 32 seconds | EXTERNAL | | | Patient | performed at [facility];[address] | | LAB | | | | [address];[place] | | | | | | [address] | | | | + + + + + -+ | CK-MB | 1.9Comment: Testing | 0.5 - 3.6 ng/mL | EXTERNAL | | | | performed at [facility];[address] | | LAB | | | | [address];[place] | | | | | | [address] | | | | + + + [...] | | | | | | [place] Testing | | | | | | performed at [facility];[address] | | | | | | [address];[place], [place] | | | | | | [address] | | | | + + + [...] LAB | | | | performed at [facility] | | | | | | [address];[place], [place] | | | | | | [address] | | | | + + + [...] EXTERNAL | | | | performed at [facility];[address] | | LAB | | | | [address];[place] | | | | | | [address] | | | | + + + [...] | | | | | ONLY, -COMPUTER (729), | | | | | | newspaper or periodical editor JASBIR MONZON | | | | | | (125) on 01/02/2016 | | | | | | 5:52:17 AM | | | | + + + + + + + + | Specimen | + + | | + + + + + | Narrative | Performed At | + + + | Historically converted [facility] | EXTERNAL LAB | + + [...]
--- OUTSIDE RECORDS SUMMARY | ~2019-05-09 | XMS | Encounter Summary ---
Demographics + + + | Address | [address] | | | [place] [address] | + + + | Home Phone [...] Team Providers + +------+ + | Care City Distribution Clerk Name | Role | Phone | + +------+ + PCP | Unavailable | + +------+ + Encounter Details +--------+ + + + + | Date | Type | Department | Care Team | Description | +--------+ + + + + | 12/31/ | Hospital | [facility] | Emmett Solitario MD | Elevated troponin; | | 2016 - | Encounter | [facility] | [address] | Serum potassium | | | | CARE [address]LO[address] | [place] [address] | elevated; ESRD (end | | 01/01/ | | [address] | [phone] | stage renal disease) | | 2016 | | [place], [place] | | ([facility]) | | | | [address] | | | | | | [phone] | | | +--------+ + + + [...] Service: Hospitalist Author Type: Physician Filed: 01/03/16 1423 Date of Service: 01/02/16 1202 Status: Signed Pipe Line Gauger: Hipolito Bonilla MD (Physician) Related Notes: Original [...] whoWho was referred to our hospital from [facility] of epigastric pain and [...] tablet 4 01/01/2016 at Unknown time B Kipwsvw-M-Yzgjd Acid (STERLING-BRITT) TABS TAKE 1 BY MOUTH [...] hours. No results for input(s): PHART, PO2ART, BIB4WNJ, I7OYAGKR, BEART in the last 168 hours. Recent [...] other data, potentially affecting final categorization. 1. [place] [employer] and [place] [employer] Scientific Statement. Circulation (2008 ); 118: p 6527-1350 Selection Text Definition Low Risk 1.Normal or [...] on file. Follow up: Francisco Mitchell MD [address] [place] [address] Medication List CHANGE how you take these [...] Date of Service: 01/02/16 1209 Status: Signed Pipe Line Gauger: Gemma Doe RN (Registered Nurse) Pt d/c'd [...] Service: Nephrology Author Type: Physician Filed: 01/08/16 1242 Date of Service: 01/02/16 100 Status: Signed Pipe Line Gauger: Jay Schaefer MD (Physician) [facility] Service: NEPHROLOGY progress Note [place] 55 y.o. [phone] [id number] male FRANCISCO Escobar STEPHEN [facility] Day: 55 y.o male with PMH [...] GRAFT REPAIR/REVISION; Surgeon: Leonardo Dickey MD; Location: [facility]; Service: Vascular; Laterality: Left; Left arm fistula interposition graft Prescriptions prior to admission Medication Sig Dispense Refill Last Dose amLODIPine (NORVASC) 10 MG tablet Take 1 tablet by mouth daily. Pt monitors his bp and takes accordingly (Patient taking differently: Take 20 mg by mouth daily. Pt monitors his bp and takes accordingly) 90 tablet 4 01/01/2016 at Unknown time B Uekijee-K-Yaodu Acid (STERLING-BRITT) TABS TAKE 1 BY MOUTH [...] on file Social History Narrative lives in [facility] Scheduled Medications amLODIPine 10 mg Oral Daily [...] chloride 10 mL Intravenous Q8H vitamin B xqfhsbn-N-qongt acid 1 tablet Oral Daily Continuous Infusions [...] QTC Calculation (Bezet) 437 ms Calculated P [place] 48 degrees Calculated R [place] 10 degrees Calculated T [place] 24 degrees Diagnosis Normal sinus rhythm Possible Left atrial enlargement Borderline ECG When compared with ECG of 31-OCT-2013 07:22, No significant change was found This ECG contains Unconfirmed Interpretation Statements. See ED Record for Physician Inter pretation. Confirmed by MUSE READ ONLY, -COMPUTER ([id number]), editorial director JASBIR MONZON ([id number]) on 01/02/2016 5:52 :17 [...] hypertension, benign ESRD (end stage renal disease) ([facility]) ASSESSMENT & PLAN ESRD ON [...] earlier and charting completed later Dictation software, [employer], a division of [employer], used which may contain error for similar sounding words even af ter review. Personal communication requested for any clarification. onversion Transa ction, Provider Unknown - 01/02/2016 4:35 AM PDT Progress Notes by Ryan Reyes RPH at 01/02/16434 Author: Ryan Reyes RPH Service: (none) Author Type: Pharmacist Filed: 01/02/16434 Date of Service: 01/02/16434 Status: Signed Pipe Line Gauger: Ryan Reyes RPH (Pharmacist) Note ccl 10.2ml/min ESRD meds reviewed Pharmacy will follow [facility] 0435 docume hosseined in this encounter Plan of Treatment +--------+---------+ + + + | Date | Type | Specialty | Care Team | Description | +--------+---------+ + + + | 05/20/ | Office | Nephrology | Alexx Gutierrez MD | | | 2020 | Visit | | [address] [facility] | | | | | | [address] [place], [place] | | | | | | [address] | | | | | | | [...] affecting final | | | categorization. 1. [place] [employer] and [place] | | | College of Cardiology Scientific Statement. Circulation (2008); 118: p | | | 0493-3434 Selection Text Definition Low Risk | | [...] Performed At | + + + | [facility] MYOCARDIAL PERFUSION SPECT - STRESS AND REST [...] Abhishek, Rad Conversion - 12/27/2018 10:15 PM [facility] MYOCARDIAL PERFUSION | | SPECT - STRESS AND REST01/02/2016 11:31 AM HISTORY:Chest pain. TECHNIQUE:The patient was | | given 10.2 mCi of Tc 99m Cardiolite at rest and that was followed by a resting cardiac | | SPECT study. On the same day the patient was stressed using Luciano protocol under the | | direction of the [facility] level provider. At peak stress they [...] other data, potentially affecting final categorization. 1. [place] Heart | | Association and [place] [employer] Scientific Statement. Circulation (2008); | | 118: p 2671-3403 Selection Text Definition Low Risk 1.Normal or [...] EXTERNAL | | | | performed at [facility];[address] | | LAB | | | | [address];[place] | | | | | | [address] | | | | + + + [...] | | | | | | ACUTE VT Testing | | | | | | performed at [facility];[address] | | | | | | [facility];[place], [place] | | | | | | [address] | | | | + + + [...] EXTERNAL | | | | performed at [facility];[address] | | LAB | | | | [address];[place] | | | | | | [address] | | | | + + + [...] + + | Historically converted procedure from [facility] Epic environment | EXTERNAL LAB | + [...] | | | | | | [place] [address] | | | | + + + + + + | RED CELL | 4.69Comment: Testing | 4.20 - 5.70 | EXTERNAL | | | COUNT | performed at [facility], [address] | M/uL | LAB | | | | [address], | | | | | | [place] [address] | | | | + + + + + + | Hgb | 14.2Comment: Testing | 13.2 - 17.0 | EXTERNAL | | | | performed at [facility], [address] | g/dL | LAB | | | | [address], | | | | | | [place] [address] | | | | + + + + + + | Hematocrit, | 43.9Comment: Testing | 39.0 - 50.0 % | EXTERNAL | | | POC | performed at [facility], [address] | | LAB | | | [address], | | | | | | [place] [address] | | | | + + + + + + | MCV | 93.5Comment: Testing | 80.0 - 100.0 fl | EXTERNAL | | | | performed at [facility], [address] | | LAB | | | | [address], | | | | | | [place] [address] | | | | + + + + + + | MCH | 30.3Comment: Testing | 27.0 - 34.0 pg | EXTERNAL | | | | performed at [facility], [address] | | LAB | | | | [address], | | | | | | [place] [address] | | | | + + + + + + | MCHC | 32.4Comment: Testing | 32.0 - 35.5 | EXTERNAL | | | | performed at [facility], [address] | g/dL | LAB | | | | [address], | | | | | | [place] [address] | | | | + + + + + + | RDW-CV | 56.0 (H)Comment: Testing | 37 - 53 fl | EXTERNAL | | | | performed at [facility], [address] | | LAB | | | | [address], | | | | | | [place] [address] | | | | + + + + + + | Platelet | 215Comment: Testing | 150 - 400 K/uL | EXTERNAL | | | Count | performed at [facility], [address] | | LAB | | | Plasma | [address], | | | | | | [place] [address] | | | | + + + + + + | MPV | 9.6Comment: Testing | fl | EXTERNAL | | | | performed at [facility], [address] | | LAB | | | | [address], | | | | | | [place] [address] | | | | + + + + + + | Differentia | AUTOMATEDComment: | | EXTERNAL | | | l Type | Testing performed at | | LAB | | | | [facility], [address] | | | | | | [place] | | | | | | [address] | | | | + + + + + + | % Segmented | 51.31Comment: Testing | % | EXTERNAL | | | | performed at [facility], [address] | | LAB | | | Neutrophils | [address], | | | | | | [place] [address] | | | | + + + + + + | % | 31.54Comment: Testing | % | EXTERNAL | | | Lymphocytes | performed at [facility], [address] | | LAB | | | | [address], | | | | | | [place] [address] | | | | + + + + + + | % Monocytes | 12.65Comment: Testing | % | EXTERNAL | | | | performed at [facility], [address] | | LAB | | | | [address], | | | | | | [place] [address] | | | | + + + + + + | % | 3.47Comment: Testing | % | EXTERNAL | | | Eosinophils | performed at [facility], [address] | | LAB | | | | [address], | | | | | | [place] [address] | | | | + + + + + + | % Basophils | 1.03Comment: Testing | % | EXTERNAL | | | | performed at [facility], [address] | | LAB | | | | [address], | | | | | | [place] [address] | | | | + + + + + + | Absolute | 2.74Comment: Testing | 1.90 - 7.40 | EXTERNAL | | | Segmented | performed at [facility], [address] | K/uL | LAB | | | Neutrophils | [address], | | | | | | [place] [address] | | | | + + + + + + | Absolute | 1.68Comment: Testing | 1.00 - 3.90 | EXTERNAL | | | Lymphocytes | performed at [facility], [address] | K/uL | LAB | | | | [address], | | | | | | [place] [address] | | | | + + + + + + | Absolute | 0.68Comment: Testing | 0.00 - 0.80 | EXTERNAL | | | Monocytes | performed at [facility], [address] | K/uL | LAB | | | | [place], | | | | | | [place] [address] | | | | + + + + + + | Absolute | 0.19Comment: Testing | 0.00 - 0.50 | EXTERNAL | | | Eosinophils | performed at [facility], [address] | K/uL | LAB | | | | [address], | | | | | | [place] [address] | | | | + + + + + + | Absolute | 0.06Comment: Testing | 0.00 - 0.10 | EXTERNAL | | | Basophils | performed at [facility], [address] | K/uL | LAB | | | | [address], | | | | | | [place] [address] | | | | + + + [...] EXTERNAL | | | | performed at [facility], [address] | | LAB | | | | [address], | | | | | | [place] [address] | | | | + + + [...] EXTERNAL | | | | performed at [facility], [address] | | LAB | | | | [place] [address], | | | | | | [place] [address] | | | | + + + [...] + + | Hemoglobin | 5.6Comment: The [place]ian | 4.0 - 6.0 % | EXTERNAL [...] | | | | | performed at [facility], [address] | | | | | | [address] [facility], | | | | | | [place] [address] | | | | + + + [...] | | | | | performed at [facility], [address] | | | | | | [facility], | | | | | | [place] [address] | | | | + + + [...] EXTERNAL | | | | performed at [facility], [address] | | LAB | | | | [place] [address], | | | | | | [place] [address] | | | | + + + + + + | Triglycerid | 282 (H)Comment: Testing | mg/dL | EXTERNAL | | | es | performed at [facility], [address] | | LAB | | | [address], | | | | | | [place] [address] | | | | + + + + + + | HDL | 35 (L)Comment: Testing | mg/dL | EXTERNAL | | | | performed at [facility], [address] | | LAB | | | | [address], | | | | | | [place] [address] | | | | + + + + + + | LDL | 98Comment: Testing | mg/dL | EXTERNAL | | | Cholesterol | performed at [facility], [address] | | LAB | | | , | [address], | | | | | Calculated, | [place] [address] | | | | | External | [...] | | | | | [place] [address] | | | | + + + + + + | K | 4.6Comment: Testing | 3.5 - 4.9 | EXTERNAL | | | | performed at [facility], [address] | mmol/L | LAB | | | | [address], | | | | | | [place] [address] | | | | + + + + + + | Cl | 95 (L)Comment: Testing | 99 - 109 mmol/L | EXTERNAL | | | | performed at [facility], [address] | | LAB | | | | [address], | | | | | | [place] [address] | | | | + + + + + + | CO2 | 35 (H)Comment: Testing | 23 - 32 mmol/L | EXTERNAL | | | | performed at [facility], [address] | | LAB | | | | [address], | | | | | | [place] [address] | | | | + + + + + + | Anion Gap | 13Comment: Testing | 5 - 20 mmol/L | EXTERNAL | | | | performed at [facility], [address] | | LAB | | | | [address], | | | | | | [place] [address] | | | | + + + + + + | Glucose, | 99Comment: Testing | 65 - 99 mg/dL | EXTERNAL | | | Fasting | performed at [facility], [address] | | LAB | | | | [address], | | | | | | [place] [address] | | | | + + + + + + | BUN | 25Comment: Testing | 8 - 25 mg/dL | EXTERNAL | | | | performed at [facility], [address] | | LAB | | | | [address], | | | | | | [place] [address] | | | | + + + + + + | Creatinine | 10.5 (H)Comment: Testing | 0.70 - 1.30 | EXTERNAL | | | | performed at [facility], [address] | mg/dL | LAB | | | | [address], | | | | | | [place] [address] | | | | + + + + + + | BUN/Creatin | 2Comment: Testing | | EXTERNAL | | | ine Ratio | performed at [facility], [address] | | LAB | | | | [address], | | | | | | [place] [address] | | | | + + + + + + | Calcium | 10.8 (H)Comment: Testing | 8.5 - 10.5 | EXTERNAL | | | | performed at [facility], [address] | mg/dL | LAB | | | | [address], | | | | | | [place] [address] | | | | + + + [...] [place], | | | | | | [place] [address] | | | | + + + [...] EXTERNAL | | | | performed at [facility];[address] | | LAB | | | | [address];[place], [place] | | | | | | [address] | | | | + + + [...] | | | | | | ACUTE VT Testing | | | | | | performed at [facility];[address] | | | | | | [address] [facility];[place], [place] | | | | | | [address] | | | | + + + [...] LAB | | | | performed at [facility];[address] | | | | | | [address];[place], [place] | | | | | | [address] | | | | + + + [...] EXTERNAL | | | | performed at [facility];[address] | K/uL | LAB | | | | [address] [place];[place] | | | | | | [address] | | | | + + + + + -+ | RED CELL | 4.86Comment: Testing | 4.20 - 5.70 | EXTERNAL | | | COUNT | performed at [facility];[address] | M/uL | LAB | | | | [address];[place] | | | | | | [address] | | | | + + + + + -+ | Hgb | 15.2Comment: Testing | 13.2 - 17.0 | EXTERNAL | | | | performed at [facility];[address] | g/dL | LAB | | | | [address];[place] | | | | | | [address] | | | | + + + + + -+ | Hematocrit, | 44.9Comment: Testing | 39.0 - 50.0 % | EXTERNAL | | | POC | performed at [facility];[address] | | LAB | | | | [address];[place] | | | | | | [address] | | | | + + + + + -+ | MCV | 92.4Comment: Testing | 80.0 - 100.0 fl | EXTERNAL | | | | performed at [facility];[address] | | LAB | | | | [address];[place] | | | | | | [address] | | | | + + + + + -+ | MCH | 31.2Comment: Testing | 27.0 - 34.0 pg | EXTERNAL | | | | performed at [facility];[address] | | LAB | | | | [address];[place] | | | | | | [address] | | | | + + + + + -+ | MCHC | 33.8Comment: Testing | 32.0 - 35.5 | EXTERNAL | | | | performed at [facility];[address] | g/dL | LAB | | | | [address];[place] | | | | | | [address] | | | | + + + + + -+ | RDW-CV | 53.4 (H)Comment: Testing | 37 - 53 fl | EXTERNAL | | | | performed at [facility];[address] | | LAB | | | | [address];[place] | | | | | | [address] | | | | + + + + + -+ | Platelet | 230Comment: Testing | 150 - 400 K/uL | EXTERNAL | | | Count | performed at [facility];[address] | | LAB | | | Plasma | [address];[place] | | | | | | [address] | | | | + + + + + -+ | MPV | 9.0Comment: Testing | fl | EXTERNAL | | | | performed at [facility];[address] | | LAB | | | | [address];[place] | | | | | | [address] | | | | + + + + + -+ | Differentia | AUTOMATEDComment: | | EXTERNAL | | | l Type | Testing performed at | | LAB | | | | [facility];[address];[place] [address] | | | | + + + + + -+ | % Segmented | 50.16Comment: Testing | % | EXTERNAL | | | | performed at [facility];[address] | | LAB | | | Neutrophils | [address];[place] | | | | | | [address] | | | | + + + + + -+ | % | 29.99Comment: Testing | % | EXTERNAL | | | Lymphocytes | performed at [facility];[address] | | LAB | | | | [address];[place] | | | | | | [address] | | | | + + + + + -+ | % Monocytes | 15.53Comment: Testing | % | EXTERNAL | | | | performed at [facility];[address] | | LAB | | | | [address];[place] | | | | | | [address] | | | | + + + + + -+ | % | 3.24Comment: Testing | % | EXTERNAL | | | Eosinophils | performed at [facility];[address] | | LAB | | | | [address];[place] | | | | | | [address] | | | | + + + + + -+ | % Basophils | 1.08Comment: Testing | % | EXTERNAL | | | | performed at [facility];[address] | | LAB | | | | [address];[place] | | | | | | [address] | | | | + + + + + -+ | Absolute | 2.83Comment: Testing | 1.90 - 7.40 | EXTERNAL | | | Segmented | performed at [facility];[address] | K/uL | LAB | | | Neutrophils | [address];[place] | | | | | | [address] | | | | + + + + + -+ | Absolute | 1.69Comment: Testing | 1.00 - 3.90 | EXTERNAL | | | Lymphocytes | performed at [facility];[address] | K/uL | LAB | | | | [address];[place] | | | | | | [address] | | | | + + + + + -+ | Absolute | 0.88 (H)Comment: Testing | 0.00 - 0.80 | EXTERNAL | | | Monocytes | performed at [facility];[address] | K/uL | LAB | | | | [address];[place] | | | | | | [address] | | | | + + + + + -+ | Absolute | 0.18Comment: Testing | 0.00 - 0.50 | EXTERNAL | | | Eosinophils | performed at [facility];[address] | K/uL | LAB | | | | [address];[place] | | | | | | [address] | | | | + + + + + -+ | Absolute | 0.06Comment: Testing | 0.00 - 0.10 | EXTERNAL | | | Basophils | performed at [facility];[address] | K/uL | LAB | | | | [address];[place] | | | | | | [address] | | | | + + + + + -+ | Na | 138Comment: Testing | 135 - 145 | EXTERNAL | | | | performed at [facility];[address] | mmol/L | LAB | | | | [address];[place] | | | | | | [address] | | | | + + + + + -+ | K | 5.0 (H)Comment: SLT | 3.5 - 4.9 | EXTERNAL | | | | HEMOLYSISTesting | mmol/L | LAB | | | | performed at [facility];[address] | | | | | | [address];[place] | | | | | | [address] | | | | + + + + + -+ | Cl | 95 (L)Comment: Testing | 99 - 109 mmol/L | EXTERNAL | | | | performed at [facility];[address] | | LAB | | | | [address];[place] | | | | | | [address] | | | | + + + + + -+ | CO2 | 32Comment: Testing | 23 - 32 mmol/L | EXTERNAL | | | | performed at [facility];[address] | | LAB | | | | [address];[place] | | | | | | [address] | | | | + + + + + -+ | Anion Gap | 15Comment: Testing | 5 - 20 mmol/L | EXTERNAL | | | | performed at [facility];[address] | | LAB | | | | [address];[place] | | | | | | [address] | | | | + + + + + -+ | Glucose, | 98Comment: Testing | 65 - 99 mg/dL | EXTERNAL | | | Fasting | performed at [facility];[address] | | LAB | | | | [address];[place] | | | | | | [address] | | | | + + + + + -+ | BUN | 21Comment: Testing | 8 - 25 mg/dL | EXTERNAL | | | | performed at [facility];[address] | | LAB | | | | [address];[place] | | | | | | [address] | | | | + + + + + -+ | Creatinine | 9.2 (H)Comment: Testing | 0.70 - 1.30 | EXTERNAL | | | | performed at [facility];[address] | mg/dL | LAB | | | | [address];[place] | | | | | | [address] | | | | + + + + + -+ | BUN/Creatin | 2Comment: Testing | | EXTERNAL | | | ine Ratio | performed at [facility];[address] | | LAB | | | | [address];[place] | | | | | | [address] | | | | + + + + + -+ | Calcium | 10.2Comment: Testing | 8.5 - 10.5 | EXTERNAL | | | | performed at [facility];[address] | mg/dL | LAB | | | | [address];[place] | | | | | | [address] | | | | + + + + + -+ | Protein, | 9.1 (H)Comment: Testing | 6.3 - 8.2 g/dL | EXTERNAL | | | Total | performed at [facility];[address] | | LAB | | | | [address];[place] | | | | | | [address] | | | | + + + + + -+ | Albumin | 4.2Comment: Testing | 3.6 - 5.0 g/dL | EXTERNAL | | | | performed at [facility];[address] | | LAB | | | | [address];[place] | | | | | | [address] | | | | + + + + + -+ | Globulin | 4.9Comment: Testing | 1.3 - 4.9 g/dL | EXTERNAL | | | | performed at [facility];[address] | | LAB | | | | [address];[place] | | | | | | [address] | | | | + + + + + -+ | A/G Ratio | 0.9 (L)Comment: Testing | 1.0 - 2.4 | EXTERNAL | | | | performed at [facility];[address] | | LAB | | | | [address];[place] | | | | | | [address] | | | | + + + + + -+ | Bilirubin | 0.4Comment: Testing | 0.1 - 1.5 mg/dL | EXTERNAL | | | Total | performed at [facility];[address] | | LAB | | | | [address];[place] | | | | | | [address] | | | | + + + + + -+ | ALP, | 91Comment: Testing | 35 - 115 U/L | EXTERNAL | | | External | performed at [facility];[address] | | LAB | | | | [address];[place] | | | | | | [address] | | | | + + + + + -+ | AST | 13Comment: SLT | 10 - 45 U/L | EXTERNAL | | | | HEMOLYSISTesting | | LAB | | | | performed at [facility];[address] | | | | | | [address];[place] | | | | | | [address] | | | | + + + + + -+ | ALT | 32Comment: Testing | 10 - 65 U/L | EXTERNAL | | | | performed at [facility];[address] | | LAB | | | | [address];[place] | | | | | | [address] | | | | + + + [...] | | | | | | at [facility];[address];[place] [address] | | | | + + + + + -+ | CK, Total | 437 (H)Comment: Testing | 55 - 400 U/L | EXTERNAL | | | | performed at [facility];[address] | | LAB | | | | [address];[place] | | | | | | [address] | | | | + + + [...] | | | | | performed at [facility];[address] | | | | | | [address];[place] | | | | | | [address] | | | | + + + + + -+ | aPTT, | 29Comment: Testing | 23 - 32 seconds | EXTERNAL | | | Patient | performed at [facility] [place] | | LAB | | | | [address];[place] | | | | | | [address] | | | | + + + + + -+ | CK-MB | 1.9Comment: Testing | 0.5 - 3.6 ng/mL | EXTERNAL | | | | performed at [facility] [place];[address] | | LAB | | | | [address];[place] | | | | | | [address] | | | | + + + [...] | | | | | | ACUTE VT Testing | | | | | | performed at [facility] [place];[address] | | | | | | [address];[place], [place] | | | | | | [address] | | | | + + + [...] LAB | | | | performed at [facility] [place];[facility] | | | | | | [address];[place], [place] | | | | | | [address] | | | | + + + [...] EXTERNAL | | | | performed at [facility] [place];[address] | | LAB | | | | [address];[place] | | | | | | [address] | | | | + + + [...] | | | | | ONLY, -COMPUTER (448), | | | | | | editorial director JASBIR MONZON | | | | | | (125) on 01/02/2016 | | | | | | 5:52:17 AM | | | | + + + + + + + + | Specimen | + + | | + + + + + | Narrative | Performed At | + + + | [facility] | EXTERNAL LAB | + [...]
--- OUTSIDE RECORDS SUMMARY | ~2019-05-09 | XMS | Encounter Summary ---
Demographics + + + | Address | [address] | | | [place] [address] | + + + | Home Phone [...] + + | Author | [facility] | + + + | Organization | [facility] | + + + | Address | Unknown | + + + | Phone | Unavailable | + + + Support + + +---------+ + | Name | Relationship | Address | Phone | + + +---------+ + | Olesya Lamb | ECON | Unknown | | + + +---------+ + Care Team Providers + +------+ + | Care Inside Phone Sales Name | Role | Phone | + +------+ + | Oziel Michael MD | PCP | | + +------+ + Encounter Details +--------+ + + + + | Date | Type | Department | Care Team | Description | +--------+ + + + + | 06/17/ | Lab | LAB IMMUNOGENETIC | | | | 2015 | Requisition | AND TRANSPLANT LAB | | | | | | [address] | | | | | | [place], | | | | | | [place] [address] | | | +--------+ + + + [...] FLOW HLA AB PRA | Routin | 06/17/2015 | | | | SCREEN I/II | e | 3:43 PM | | | | | | PST | | | + +--------+ + + + documented in this encounter Results LIT FLOW HLA AB PRA SCREEN I/II (06/17/2015 3:43 PM PST) + + | Specimen | + + | Blood - Blood | | (substance) | + + + + + + + | Performing | Address | City/State/Zipcode | Phone Number | | Organization | | | | + + + + + | [facility] - | [address] | [place] [address] | | | IMMUNOGENETICS/TRANS | [address] | | | | [facility] | | | | + + + + + documented in this encounter Visit Diagnoses Not on filedocumented in this encounter"
--- OUTSIDE RECORDS SUMMARY | ~2019-05-09 | XMS | Encounter Summary ---
Demographics + + + | Address | [address] | | | [place] [address] | + + + | Home Phone | | + + + | Preferred Language | Unknown | + + + | Marital Status | Unknown | + + + | Holiness Affiliation | Unknown | + + + | Race | Unknown | + + + | Ethnic Group | Unknown | + + + Author + + + | Author | [facility] | | | and [place] | + + + | Organization | [facility] | | [...] Team Providers + +------+ + | Care Signal Worker Helper Name | Role | Phone | + +------+ + PCP | Unavailable | + +------+ + Encounter Details +--------+ + + + + | Date | Type | Department | Care Team | Description | +--------+ + + + + | 11/05/ | Hospital | [facility] | Leonardo Dickey MD | ESRD (end stage | | 2014 | Encounter | [facility] | [address] | renal disease) ([facility]) | | | | [address] | [address] [place], [place] | | | | | [place], [place] | [address] | | | | | [address] | [phone] | | | | | [phone] | | | +--------+ + + + [...] 11/05/131816 Date of Service: 11/05/131809 Status: Signed Model Maker Plaster: Claritza Brizuela RN (Registered Nurse) All belongings taken with patient. Home via private vehicle with friend. FELICIANO Vanegas onver svitlana Transaction, Provider Unknown - 11/05/2013 5:51 PM PDT Progress Notes by Claritza Brizuela RN at 11/05/131750 Author: Claritza Brizuela RN Service: (none) Author Type: Registered Nurse Filed: 11/05/131813 Date of Service: 11/05/131750 Status: Signed Model Maker Plaster: Claritza Wand, RN (Registered Nurse) Reviewed discharge [...] 11/05/131732 Date of Service: 11/05/131732 Status: Signed Model Maker Plaster: Stephanie Coleman RPH (Pharmacist) Clinical Pharmacy Note: Renal Monitoring [place] 53 y.o. male Ht Readings from Last [...] 2020 | Visit | | [address] [facility] | | | | | | [address] [place], [place] | | | | | | [address] | | | | | | | [...] up to 0.5 cm. | | | Donor Relations Associate sections are submitted in cassette (A1). FM | | | MICROSCOPIC EXAMINATION: Histologic sections of all submitted blocks | | | are examined by light microscopy. These findings, together with the | | | gross examination, support the pathologic diagnosis. PERFORMING | | | LABORATORY: Professional interpretation and technical preparation was | | | performed by [employer], [facility], [facility] | | | [place] [address] (Safe Expert: Bashir | | | Chantel Delacruz; [facility]#: [id number]). Diagnostician: Bashir Delacruz | | | Pathologist [...] | | LAB | | | | Bl[address];[place] [address] | | | | + + + + + + | Antibody | NEGATIVE | | EXTERNAL | | | Screen | | | LAB | | + + + + + + | Antibody | Testing performed at | | EXTERNAL | | | Screen | [facility] | | LAB | | | | [address];[place] [address] | | | | + + + + + + | BB BAND | [id number] | | EXTERNAL | | | | | | LAB | | + + + + + + | BB BAND | Testing performed at | | EXTERNAL | | | | [facility] | | LAB | | | | Blvd;[place] [address] | | | | + + + [...] [place] | | | | | | [address] | | | | + + + + + + | K | 3.6Comment: Testing | 3.5 - 4.9 | EXTERNAL | | | | performed at [facility];[address] | mmol/L | LAB | | | | [address];[place] | | | | | | [address] | | | | + + + + + + | Cl | 107Comment: Testing | 99 - 109 mmol/L | EXTERNAL | | | | performed at [facility];[address] | | LAB | | | | [address];[place] | | | | | | [address] | | | | + + + + + + | CO2 | 29Comment: Testing | 23 - 32 mmol/L | EXTERNAL | | | | performed at [facility];[address] | | LAB | | | | [address];[place] | | | | | | [address] | | | | + + + + + + | Anion Gap | 11Comment: Testing | 5 - 20 mmol/L | EXTERNAL | | | | performed at [facility];[address] | | LAB | | | | [address];[place] | | | | | | [address] | | | | + + + + + + | Glucose, | 74Comment: Testing | 65 - 99 mg/dL | EXTERNAL | | | Fasting | performed at [facility];[address] | | LAB | | | | [address];[place] | | | | | | [address] | | | | + + + + + + | BUN | 35 (H)Comment: Testing | 8 - 25 mg/dL | EXTERNAL | | | | performed at [facility];[address] | | LAB | | | | [address];[place] | | | | | | [address] | | | | + + + + + + | Creatinine | 10.12 (H)Comment: | 0.70 - 1.30 | EXTERNAL | | | | Testing performed at | mg/dL | LAB | | | | [facility];[address] | | | | | | [address];[place] [address] | | | | + + + + + + | BUN/Creatin | 4Comment: Testing | | EXTERNAL | | | ine Ratio | performed at [facility];[address] | | LAB | | | | [address];[place] | | | | | | [address] | | | | + + + + + + | Calcium | 8.1 (L)Comment: Testing | 8.5 - 10.2 | EXTERNAL | | | | performed at [facility];888 | mg/dL | LAB | | | | [address];[place] | | | | | | [address] | | | | + + + [...] | at [facility];[address] | | | | | | Blvd;[place] [address] | | | | + + + [...]
--- OUTSIDE RECORDS SUMMARY | ~2019-05-09 | XMS | Encounter Summary ---
Demographics + + + | Address | [address] | | | [place] [address] | + + + | Home Phone | | + + + | Preferred Language | Unknown | + + + | Marital Status | Unknown | + + + | Uatsdin Affiliation | Unknown | + + + | Race | Unknown | + + + | Ethnic Group | Unknown | + + + Author + + + | Author | [facility] | | | and [place] | + + + | Organization | [facility] | | [...] Team Providers + +------+ + | Care Ditching Machine Engineer Name | Role | Phone | + +------+ + | Oziel Michael MD | PCP | | + +------+ + Encounter Details +--------+ + + + + | Date | Type | Department | Care Team | Description | +--------+ + + + + | 01/04/ | Orders Only | [facility] | Alexx Gutierrez MD | | | 2017 | | NEPRHOLOGY [place] | [address] | | | | | [address] | [address] [place], [place] | | | | | [address] [place], [place] | [address] | | | | | [address] | | | | | | [phone] | | | +--------+ + + + [...] 2019 | Visit | | [address] [facility] [place] | | | | | | [address] [place], [place] | | | | | | [address] | | | | | | | | +--------+---------+ + + + documented as of this encounter Procedures + +--------+ + + + | Procedure Name | Priori | Date/Time | Associated Diagnosis | Comments | | | ty | | | | + +--------+ + + + | EXTERNAL LAB: | Routin | 01/04/2018 | | Results for this | | TACROLIMUS LEVEL, | e | 7:20 AM | | procedure are in the | | LC-MS/MS | | PDT | | results section. | + +--------+ + + + documented in this encounter Results External Lab: Tacrolimus Level, LC-MS/MS (01/04/2018 7:20 AM PDT) + +-------+ + [...]
--- OUTSIDE RECORDS SUMMARY | ~2019-05-09 | XMS | Encounter Summary ---
Demographics + + + | Address | [address] | | | [place] [address] | + + + | Home Phone | | + + + | Preferred Language | Unknown | + + + | Marital Status | Unknown | + + + | Hoahaoism Affiliation | Unknown | + + + | Race | Unknown | + + + | Ethnic Group | Unknown | + + + Author + + + | Author | [facility] | | | and [place] | + + + | Organization | [facility] | | [...] Team Providers + +------+ + | Care Sandstone Splitter Name | Role | Phone | + +------+ + | Oziel Michael MD | PCP | | + +------+ + Encounter Details +--------+ + + + + | Date | Type | Department | Care Team | Description | +--------+ + + + + | 09/26/ | Orders Only | [facility] | Alexx Gutierrez MD | | | 2018 | | NEPHROLOGY [place] | [address] [place] | | | | | [address] [place] | [address] [place], [place] | | | | | [address] [place], [place] | [address] | | | | | [address] | | | | | | [phone] | | | +--------+ + + + [...] | Visit | | [address] [facility] | | | | | | [address] [place] | | | | | | [address] | | | | | | | [...]
--- OUTSIDE RECORDS SUMMARY | ~2019-05-09 | XMS | Encounter Summary ---
Demographics + + + | Address | [address] | | | [place] [address] | + + + | Home Phone [...] + | Author | [facility] | | | and [place] | + + + | Organization | [facility] | | | and [...] Team Providers + +------+ + | Care Creosoting Engineer Name | Role | Phone | + +------+ + | Oziel Michael MD | PCP | | + +------+ + Encounter Details +--------+ + + + + | Date | Type | Department | Care Team | Description | +--------+ + + + + | 10/10/ | Orders Only | [facility] | Alexx Gutierrez MD | | | 2017 | | NEPHROLOGY [place] | [address] [place] | | | | | [address] [place] | [address] [place], [place] | | | | | [address] [place], [place] | [address] | | | | | [address] | | | | | | [phone] | | | +--------+ + + + [...] | Visit | | [address] [facility] | | | | | | [address] [place], [place] | | | | | | [address] | | | | | | | | +--------+---------+ + + + documented as of this encounter Procedures + +--------+ + + + | Procedure Name | Priori | Date/Time | Associated Diagnosis | Comments | | | ty | | | | + +--------+ + + + | EXTERNAL LAB: | Routin | 10/10/2017 | | Results for this | | TACROLIMUS LEVEL, | e | 9:50 AM | | procedure are in the | | LC-MS/MS | | PDT | | results section. | + +--------+ + + + documented in this encounter Results External Lab: Tacrolimus Level, LC-MS/MS (10/10/2017 9:50 AM PDT) + +-------+ + + + | Component | Value | Ref Range | Performed | Pathologist | | | | | At | Signature | + +-------+ + + + | Tacrolimus | 6.6 | | EXTERNAL | | | Level [...]
--- OUTSIDE RECORDS SUMMARY | ~2019-05-09 | XMS | Encounter Summary ---
Demographics + + + | Address | [address] | | | [place] [address] | + + + | Home Phone [...] Team Providers + +------+ + | Care Label Stitcher Name | Role | Phone | + +------+ + | Oziel Michael MD | PCP | | + +------+ + Encounter Details +--------+ + + + + | Date | Type | Department | Care Team | Description | +--------+ + + + + | 05/10/ | Orders Only | [facility] | Alexx Gutierrez MD | | | 2017 | | NEPRHOLOGY [place] | [address] | | | | | [address] | [address] [place], [place] | | | | | [address] [place], [place] | [address] | | | | | [address] | | | | | | [phone] | | | +--------+ + + + [...] 2019 | Visit | | [address] [facility] [place] | | | | | | [address] [place] | | | | | | [address] | | | | | | | | +--------+---------+ + + + documented as of this encounter Procedures + +--------+ + + + | Procedure Name | Priori | Date/Time | Associated Diagnosis | Comments | | | ty | | | | + +--------+ + + + | EXTERNAL LAB: | Routin | 09/21/2017 | | Results for this | | TACROLIMUS LEVEL, | e | 12:47 PM | | procedure are in the | | LC-MS/MS | | PDT | | results section. | + +--------+ + + + | EXTERNAL LAB: CBC | Routin | 09/21/2017 | | Results for this | | | e | 12:47 PM | | procedure are in the | | | | PDT | | results section. | + +--------+ + + + | URINALYSIS WITH | Routin | 09/21/2017 | | Results for this | | MICROSCOPIC IF | e | 12:47 PM | | procedure are in the | | INDICATED | | PDT | | results section. | + +--------+ + + + | ALT | Routin | 09/21/2017 | | Results for this | | | e | 12:47 PM | | procedure are in the | | | | PDT | | results section. | + +--------+ + + + | VITAMIN D, | Routin | 09/21/2017 | | Results for this | | DEFICIENCY SCREEN | e | 12:47 PM | | procedure are in the | | (25-HYDROXY) | | PDT | | results section. | + +--------+ + + + | PROTEIN/CREATININE | Routin | 09/21/2017 | | Results for this | | RATIO, URINE | e | 12:47 PM | | procedure are in the | | | | PDT | | results section. | + +--------+ + + + | AST | Routin | 09/21/2017 | | Results for this | | | e | 12:47 PM | | procedure are in the | | | | PDT | | results section. | + +--------+ + + + | PARATHYROID HORMONE, | Routin | 09/21/2017 | | Results for this | | INTACT | e | 12:47 PM | | procedure are in the | | | | PDT | | results section. | + +--------+ + + + | MAGNESIUM | Routin | 09/21/2017 | | Results for this | | | e | 12:47 PM | | procedure are in the | | | | PDT | | results section. | + +--------+ + + + | CK TOTAL | Routin | 09/21/2017 | | Results for this | | | e | 12:47 PM | | procedure are in the | | | | PDT | | results section. | + +--------+ + + + | RENAL FUNCTION PANEL | Routin | 09/21/2017 | | Results for this | | | e | 12:47 PM | | procedure are in the | | | | PDT | | results section. | + +--------+ + + + documented in this encounter Results External Lab: Tacrolimus Level, LC-MS/MS (09/21/2017 12:47 PM PDT) + +-------+ + + + | Component | Value | Ref Range | Performed | Pathologist | | | | | At | Signature | + +-------+ + + + | Tacrolimus | 2.7 | | EXTERNAL | | | Level [...] + +---------+ + + Protein/Creatinine Ratio, Urine (09/21/2017 12:47 PM PDT) + + + + + + | Component | Value | Ref Range | Performed | Pathologist | | | | | At | Signature | + + + + + + | Protein/Cre | 543.0 (A) | 0 - 150 | EXTERNAL [...] | | | + +---------+ + + Vitamin D, Deficiency Screen (25-Hydroxy) (09/21/2017 12:47 PM PDT) + +--------+ + + + | Component | Value | Ref Range | Performed | Pathologist | | | | | At | Signature | + +--------+ + + + | Vit D, | 23 (A) | 30 - 100 | EXTERNAL | [...] + + Urinalysis with Microscopic if Indicated (09/21/2017 12:47 PM PDT) + + + + + [...] + + + | Spec Grav, | 1.017 | 1.005 - 1.030 | [...] + + + + | Total | 100 | | EXTERNAL | | | Protein [...] Performed At | + + + | Epithelial: Squamous 1+, Trans 1+, Sperm present. | EXTERNAL LAB | + + + + +---------+ + + | Performing | Address | City/State/Zipcode | Phone Number | | Organization | | | | + +---------+ + + | EXTERNAL LAB | | | | + +---------+ + + External Lab: CBC (09/21/2017 12:47 PM PDT) + + + + + + | Component | Value | Ref Range | Performed | Pathologist | | | | | At | Signature | + + + + + + | WBC | 3.8 (A) | 4.5 - 11.0 10 | EXTERNAL | | | | | | LAB | | + + + + + + | RED CELL | 4.79 | 4.3 - 5.7 10 | EXTERNAL | | | COUNT | | | LAB | | + + + + + + | Hgb | 13.7 | 13.5 - 18.0 | EXTERNAL | | | | | g/dL | LAB | | + + + + + + | Hematocrit, | 43 | 41 - 50 % | EXTERNAL | | | POC | | | LAB | | + + + + + + | MCV | 89.7 | 81 - 99 fL | EXTERNAL [...] + + + + | Platelet | 185 | 140 - 440 K/ L | [...] | | + +---------+ + + ALT (09/21/2017 12:47 PM PDT) + +-------+ + + + [...] | | + +---------+ + + AST (09/21/2017 12:47 PM PDT) + +--------+ + + + | Component | Value | Ref Range | Performed | Pathologist | | | | | At | Signature | + +--------+ + + + | AST | 10 (A) | 13 - 39 U/L | [...] + +---------+ + + Parathyroid Hormone, Intact (09/21/2017 12:47 PM PDT) + + + + + + | Component | Value | Ref Range | Performed | Pathologist | | | | | At | Signature | + + + + + + | PTH INTACT | 115.8 (A) | 15 - 65 pg/mL | [...] | | + +---------+ + + Magnesium (09/21/2017 12:47 PM PDT) + +-------+ + + + | Component | Value | Ref Range | Performed | Pathologist | | | | | At | Signature | + +-------+ + + + | Magnesium | 1.7 | 1.7 - 2.5 mg/dL | EXTERNAL [...] | + +---------+ + + CK Total (09/21/2017 12:47 PM PDT) + +---------+ + + + | Component | Value | Ref Range | Performed | Pathologist | | | | | At | Signature | + +---------+ + + + | CK, Total | 254 (A) | 24 - 195 U/L | [...] + +---------+ + + Renal Function Panel (09/21/2017 12:47 PM PDT) + + + + + + | Component | Value | Ref Range | Performed | Pathologist | | | | | At | Signature | + + + + + + | Glucose, | 107 (A) | 70 - 100 mg/dL | EXTERNAL | | | Fasting | | | LAB | | + + + + + + | BUN | 14 | 6 - 23 mg/dL | EXTERNAL | | | | | | LAB | | + + + + + + | Creatinine | 1.51 (A) | 0.7 - 1.33 | EXTERNAL [...] | | | LAB | | | MAUR[facility]IAN | | | | | + + + + + + | Phosphorus, | 3.5 | 2.5 - 5.0 | EXTERNAL | | | Inorganic | | | LAB | | + + + + + + | BUN/Creatin | 9.3 | 6.0 - 28.6 | EXTERNAL | | | ine Ratio | | | LAB | | + + + + + + | Calcium | 9.1 | 8.4 - 10.2 | EXTERNAL | | | | | mg/dL | LAB | | + + + + + + | Estimated | 48 (A) | 60 mg/dL | EXTERNAL | [...]
--- OUTSIDE RECORDS SUMMARY | ~2019-05-09 | XMS | Encounter Summary ---
Demographics + + + | Address | [address] | | | [place] [address] | + + + | Home Phone [...] + + + | Author | [facility] | + + + | Organization | [facility] | + + + | Address | Unknown | + + + | Phone | Unavailable | + + + Support + + +---------+ + | Name | Relationship | Address | Phone | + + +---------+ + | Olesya Lamb | ECON | Unknown | | + + +---------+ + Care Team Providers + +------+ + | Care Android Software Engineer Name | Role | Phone [...] | | | | | [address] [place], | | | | | | [place] [address] | | | +--------+ + + + [...] [facility] - | [address] | [place] [address] | | | IMMUNOGENETICS/TRANS | [address] | | | | [facility] | | | | + + + + + documented in this encounter Visit Diagnoses Not on filedocumented in this encounter"
--- OUTSIDE RECORDS SUMMARY | ~2019-05-09 | XMS | Encounter Summary ---
Demographics + + + | Address | [address] | | | [place] [address] | + + + | Home Phone [...] + + + | Author | [facility] | | | and [place] | + + + | Organization | [facility] | | | and [...] Team Providers + +------+ + | Care Time Piece Repairer Name | Role | Phone | [...] Description | +--------+--------+ + + + | 01/31/ | Refill | [facility] | Alexx Gutierrez MD | Medication Refill | | 2019 | | NEPRHOLOGY [place] | [address] | | | | | [address] | [address] [place], [place] | | | | | [address] [place], [place] | [address] | | | | | [address] | | | | | | [phone] | | | +--------+--------+ + + + [...] 2020 | Visit | | [address] [facility] | | | | | | [address] [place], [place] | | | | | | [address] | | | | | | | | +--------+---------+ + + + documented as of this encounter Visit Diagnoses + + | Diagnosis | + + | Kidney replaced by transplant - Primary | + + | Persistent proteinuria Proteinuria | + + | [facility] (current) use of 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 | + + documented in this encounter"
--- OUTSIDE RECORDS SUMMARY | ~2019-05-09 | XMS | Encounter Summary ---
Demographics + + + | Address | [address] | | | [place] [address] | + + + | Home Phone | | + + + | Preferred Language | Unknown | + + + | Marital Status | Unknown | + + + | Church Affiliation | Unknown | + + + [...] Team Providers + +------+ + | Care Heel Seat Fitter Machine Name | Role | Phone | + +------+ + PCP | Unavailable | + +------+ + Encounter Details +--------+ + + + + | Date | Type | Department | Care Team | Description | +--------+ + + + + | 09/04/ | Orders Only | [facility] | Conversion | | | 2018 | | NEPHROLOGY [place] | Transaction, | | | | | [address] | Provider Unknown | | | | | [address] [place], [place] | | | | | | [address] | (Fax) | | | | | [phone] | | | +--------+ + + + [...] 2020 | Visit | | [address] [facility] | | | | | | [address] [place], [place] | | | | | | [address] | | | | | | | | +--------+---------+ + + + documented as of this encounter Procedures + +--------+ + + + | Procedure Name | Priori | Date/Time | Associated Diagnosis | Comments | | | ty | | | | + +--------+ + + + | EXTERNAL LAB: | Routin | 09/04/2018 | | Results for this | | TACROLIMUS LEVEL, | e | 7:50 AM | | procedure are in the | | LC-MS/MS | | PDT | | results section. | + +--------+ + + + | EXTERNAL LAB: CBC | Routin | 09/04/2018 | | Results for this | | | e | 7:50 AM | | procedure are in the | | | | PDT | | results section. | + +--------+ + + + | URINALYSIS, | Routin | 09/04/2018 | | Results for this | | MICROSCOPIC ONLY | e | 7:50 AM | | procedure are in the | | | | PDT | | results section. | + +--------+ + + + | MAGNESIUM | Routin | 09/04/2018 | | Results for this | | | e | 7:50 AM | | procedure are in the | | | | PDT | | results section. | + +--------+ + + + | RENAL FUNCTION PANEL | Routin | 09/04/2018 | | Results for this | | | e | 7:50 AM | | procedure are in the | | | | PDT | | results section. | + +--------+ + + + documented in this encounter Results External Lab: Tacrolimus Level, LC-MS/MS (09/04/2018 7:50 AM PDT) + +-------+ + + + | Component | Value | Ref Range | Performed | Pathologist | | | | | At | Signature | + +-------+ + + + | Tacrolimus | 6.1 | | EXTERNAL | | | Level [...] + +---------+ + + Urinalysis, Microscopic Only (09/04/2018 7:50 AM PDT) + + + [...] - 1.030 | EXTERNAL | | | [place] | | | LAB | | + [...] | + + + | Casts: Negative WBC's: 2 RBC's: 0 Epithelial: Negative Crystals: | EXTERNAL LAB | | Negative Bacteria: Negative | | + + + + +---------+ + + | Performing | Address | City/State/Zipcode | Phone Number | | Organization | | | | + +---------+ + + | EXTERNAL LAB | | | | + +---------+ + + External Lab: CBC (09/04/2018 7:50 AM PDT) + + + + + + | Component | Value | Ref Range | Performed | Pathologist | | | | | At | Signature | + + + + + + | WBC | 3.3 (A) | 4.5 - 11.0 10 | EXTERNAL | | | | | | LAB | | + + + + + + | RED CELL | 4.53 | 4.3 - 5.7 10 | EXTERNAL | | | COUNT | | | LAB | | + + + + + + | Hgb | 12.7 (A) | 13.5 - 18.0 | EXTERNAL | | | | | g/dL | LAB | | + + + + + + | Hematocrit, | 39.4 (A) | 41 - 50 % | EXTERNAL | | | POC | | | LAB | | + + + + + + | MCV | 87.0 | 81 - 99 fL | EXTERNAL [...] + + + + | Platelet | 177 | 140 - 440 K/ L | EXTERNAL | | | Count | | | LAB | | | Plasma | | | | | + + + + + + | RDW-CV | 16.2 (A) | 10.5 - 15.0 % | [...] + + + | % Segmented | 55.9 | 39 - 80 % | EXTERNAL | | | | | | LAB | | | Neutrophils | | | | | + + + + + + | % | 30.4 | 24 - 44 % | EXTERNAL | | | Lymphocytes | | | LAB | | + + + + + + | % Monocytes | 11.9 | 0 - 12 % | EXTERNAL [...] | | + +---------+ + + Magnesium (09/04/2018 7:50 AM PDT) + +---------+ + + + [...] + +---------+ + + Renal Function Panel (09/04/2018 7:50 AM PDT) + + + + + + | Component | Value | Ref Range | Performed | Pathologist | | | | | At | Signature | + + + + + + | Glucose, | 141 (A) | 70 - 100 mg/dL | EXTERNAL | | | Fasting | | | LAB | | + + + + + + | BUN | 26 (A) | 6 - 23 mg/dL | EXTERNAL | | | | | | LAB | | + + + + + + | Creatinine | 1.59 (A) | 0.70 - 1.33 | EXTERNAL | | | | | mg/dL | LAB | | + + + + + + | PHOSPHORUS | 3.9 | 2.5 - 5.0 mg/dL | EXTERNAL | | | | | | LAB | | + + + + + + | Albumin | 3.6 | 3.5 - 5.0 | EXTERNAL | [...] + + + | Anion Gap | 12.3 | 7 - 21 mmol/L | EXTERNAL [...] + + + + | BUN/Creatin | 16.4 | 6.0 - 28.6 | EXTERNAL | | | ine Ratio | | | LAB | | + + + + + + | Calcium | 8.4 (A) | 8.5 - 10.3 | EXTERNAL | | | | | mg/dL | LAB | | + + + + + + | Estimated | 45 (A) | 60 - 140 mg/dL | [...]
--- OUTSIDE RECORDS SUMMARY | ~2019-05-09 | XMS | Encounter Summary ---
Demographics + + + | Address | [address] | | | [place] [address] | + + + | Home Phone | | + + + | Preferred Language | Unknown | + + + | Marital Status | Single | + + + | Congregation Affiliation | Unknown | + + + | Race | Black or | + + + | Ethnic Group | Not or | + + + Author + + + | Author | [facility] | + + + | [...] Team Providers + +------+ + | Care Epic Beacon Analyst Name | Role | Phone | + +------+ + | Oziel Michael MD | PCP | | + +------+ + Encounter Details +--------+ + + + + | Date | Type | Department | Care Team | Description | +--------+ + + + + | 05/28/ | Ancillary | LAB IMMUNOGENETIC | | | | 2012 | Orders | AND [facility]ANSPLANT LAB | | | | | | [address] | | | | | | [place], | | | | | | [place] [address] | | | +--------+ + + + [...] | LIT SERA PRE-TX | Routin | 05/28/2012 | | | | W/INHIBITORS | e | 2:31 PM | | | | | | PST | | | + +--------+ + + + | LIT FLOW HLA AB | Routin | 05/28/2012 | | | | QUICK SCREEN I/II | e | 2:31 PM | | | | | | PST | | | + +--------+ + + + documented in this encounter Results LIT SERA PRE-TX W/INHIBITORS (05/28/2012 2:31 PM PST) + + | Specimen | + + | Blood - Blood | + + + + + + + | Performing | Address | City/State/Zipcode | Phone Number | | Organization | | | | + + + + + | [facility] - | [address] | [place] [address] | | | IMMUNOGENETICS/TRANS | [address] | | | | [facility] | | | | + + + + + LIT FLOW HLA AB QUICK SCREEN I/II (05/28/2012 2:31 PM PST) + + | Specimen | + + | Blood - Blood | + + + + + + + | Performing | Address | City/State/Zipcode | Phone Number | | Organization | | | | + + + + + | [facility] - | [address] | [place] [address] | | | IMMUNOGENETICS/TRANS | [address] | | | | [facility] | | | | + + + + + documented in this encounter Visit Diagnoses Not on filedocumented in this encounter"
--- OUTSIDE RECORDS SUMMARY | ~2019-05-09 | XMS | Encounter Summary ---
Demographics + + + | Address | [address] | | | [place] [address] | + + + | Home Phone | | + + + | Preferred Language | Unknown | + + + | Marital Status | Unknown | + + + | Muslim Affiliation | Unknown | + + + | Race | Unknown | + + + | Ethnic Group | Unknown | + + + Author + + + | Author | [facility] | | | and [place] | + + + | Organization | [facility] | | | [...] + +------+ + | Care Director Of Rehabilitation And Wellness Name | Role | Phone | + +------+ + | Oziel Michael MD | PCP | | + +------+ + Encounter Details +--------+ + + + + | Date | Type | Department | Care Team | Description | +--------+ + + + + | 05/10/ | Orders Only | [facility] | Alexx Gutierrez MD | | | 2017 | | NEPRHOLOGY [place] | [address] | | | | | [address] | [address] [place], [place] | | | | | [address] [place], [place] | [address] | | | | | [address] | | | | | | [phone] | | | +--------+ + + + [...] 2019 | Visit | | [address] [facility] [address] | | | | | | [address] [place] | | | | | | [address] | | | | | | | | +--------+---------+ + + + documented as of this encounter Procedures + +--------+ + + + | Procedure Name | Priori | Date/Time | Associated Diagnosis | Comments | | | ty | | | | + +--------+ + + + | EXTERNAL LAB: | Routin | 09/21/2016 | | Results for this | | TACROLIMUS LEVEL, | e | 9:05 AM | | procedure are in the | | LC-MS/MS | | PDT | | results section. | + +--------+ + + + | EXTERNAL LAB: CBC | Routin | 09/21/2016 | | Results for this | | | e | 9:05 AM | | procedure are in the | | | | PDT | | results section. | + +--------+ + + + | URINALYSIS WITH | Routin | 09/21/2016 | | Results for this | | MICROSCOPIC IF | e | 9:05 AM | | procedure are in the | | INDICATED | | PDT | | results section. | + +--------+ + + + | ALT | Routin | 09/21/2016 | | Results for this | | | e | 9:05 AM | | procedure are in the | | | | PDT | | results section. | + +--------+ + + + | PROTEIN/CREATININE | Routin | 09/21/2016 | | Results for this | | RATIO, URINE | e | 9:05 AM | | procedure are in the | | | | PDT | | results section. | + +--------+ + + + | URIC ACID | Routin | 09/21/2016 | | Results for this | | | e | 9:05 AM | | procedure are in the | | | | PDT | | results section. | + +--------+ + + + | AST | Routin | 09/21/2016 | | Results for this | | | e | 9:05 AM | | procedure are in the | | | | PDT | | results section. | + +--------+ + + + | MAGNESIUM | Routin | 09/21/2016 | | Results for this | | | e | 9:05 AM | | procedure are in the | | | | PDT | | results section. | + +--------+ + + + | CK TOTAL | Routin | 09/21/2016 | | Results for this | | | e | 9:05 AM | | procedure are in the | | | | PDT | | results section. | + +--------+ + + + | RENAL FUNCTION PANEL | Routin | 09/21/2016 | | Results for this | | | e | 9:05 AM | | procedure are in the | | | | PDT | | results section. | + +--------+ + + + documented in this encounter Results External Lab: Tacrolimus Level, LC-MS/MS (09/21/2016 9:05 AM PDT) + +-------+ + + + | Component | Value | Ref Range | Performed | Pathologist | | | | | At | Signature | + +-------+ + + + | Tacrolimus | 5.1 | | EXTERNAL | | | Level [...] + +---------+ + + Protein/Creatinine Ratio, Urine (09/21/2016 9:05 AM PDT) + + + + + + | Component | Value | Ref Range | Performed | Pathologist | | | | | At | Signature | + + + + + + | Protein/Cre | 328.9 (A) | 0 - 150 | EXTERNAL [...] + + Urinalysis with Microscopic if Indicated (09/21/2016 9:05 AM PDT) + + + + + [...] + +---------+ + + External Lab: CBC (09/21/2016 9:05 AM PDT) + + + + + + | Component | Value | Ref Range | Performed | Pathologist | | | | | At | Signature | + + + + + + | WBC | 4.8 | 4.5 - 11.0 10 | EXTERNAL | | | | | | LAB | | + + + + + + | RED CELL | 4.60 | 4.3 - 5.7 10 | EXTERNAL | | | COUNT | | | LAB | | + + + + + + | Hgb | 13.3 (A) | 13.5 - 18.0 | EXTERNAL | | | | | g/dL | LAB | | + + + + + + | Hematocrit, | 40.8 (A) | 41 - 50 % | EXTERNAL | | | POC | | | LAB | | + + + + + + | MCV | 88.6 | 81 - 99 fL | EXTERNAL [...] + + + + | Platelet | 192 | 140 - 440 K/ L | [...] | + +---------+ + + Uric Acid (09/21/2016 9:05 AM PDT) + +---------+ + + + | Component | Value | Ref Range | Performed | Pathologist | | | | | At | Signature | + +---------+ + + + | Uric Acid | 9.0 (A) | 4.4 - 7.6 | EXTERNAL | [...] | | + +---------+ + + ALT (09/21/2016 9:05 AM PDT) + +-------+ + + + [...] | | + +---------+ + + AST (09/21/2016 9:05 AM PDT) + +-------+ + + + [...] | | + +---------+ + + Magnesium (09/21/2016 9:05 AM PDT) + +---------+ + + + [...] | + +---------+ + + CK Total (09/21/2016 9:05 AM PDT) + +---------+ + + + | Component | Value | Ref Range | Performed | Pathologist | | | | | At | Signature | + +---------+ + + + | CK, Total | 335 (A) | 24 - 195 U/L | [...] + +---------+ + + Renal Function Panel (09/21/2016 9:05 AM PDT) + + + + + + | Component | Value | Ref Range | Performed | Pathologist | | | | | At | Signature | + + + + + + | Glucose, | 111 (A) | 70 - 100 mg/dL | EXTERNAL | | | Fasting | | | LAB | | + + + + + + | BUN | 26 (A) | 6 - 23 mg/dL | EXTERNAL | | | | | | LAB | | + + + + + + | Creatinine | 1.73 (A) | 0.70 - 1.33 | EXTERNAL | | | | | mg/dL | LAB | | + + + + + + | PHOSPHORUS | | mg/dL | EXTERNAL | | | | | | LAB | | + + + + + + | Albumin | 4.1 | 3.5 - 5.0 | EXTERNAL | [...] + + + | Anion Gap | 16.3 | 7 - 21 mmol/L | EXTERNAL | | | | | | LAB | | + + + + + + | eGFR if not | | | EXTERNAL | | | | | | LAB | | | [facility] | | | | | + + + + + + | Phosphorus, | 3.1 | 2.5 - 5.0 | EXTERNAL | | | Inorganic | | | LAB | | + + + + + + | BUN/Creatin | 15.0 | 6.0 - 28.6 | EXTERNAL | | | ine Ratio | | | LAB | | + + + + + + | Calcium | 8.9 | 8.4 - 10.2 | EXTERNAL | | | | | mg/dL | LAB | | + + + + + + | Estimated | 41 | mg/dL | EXTERNAL | | | [...]
--- OUTSIDE RECORDS SUMMARY | ~2019-05-09 | XMS | Encounter Summary ---
Demographics + + + | Address | [address] | | | [place] [address] | + + + | Home Phone | | + + + | Preferred Language | Unknown | + + + | Marital Status | Unknown | + + + | Episcopal Affiliation | Unknown | + + + | Race | Unknown | + + + | Ethnic Group | Unknown | + + + Author + + + | Author | [facility] | | | and [place] | + + + | Organization | [facility] | | | and [...] Team Providers + +------+ + | Care Fish Liver Sorter Name | Role | Phone | + +------+ + | Oziel Michael MD | PCP | | + +------+ + Encounter Details +--------+ + + + + | Date | Type | Department | Care Team | Description | +--------+ + + + + | 08/01/ | Orders Only | [facility] | Conversion | | | 2017 | | CONVERSION [address] | Transaction, | | | | | [address] | Provider Unknown | | | | | [place] | [phone] | | | | | [address] | | | | | | [phone] | | | +--------+ + + + [...] 2020 | Visit | | [address] [facility] | | | | | | [address] [place] | | | | | | [address] | | | | | | | | +--------+---------+ + + + documented as of this encounter Visit Diagnoses Not on filedocumented in this encounter"
--- OUTSIDE RECORDS SUMMARY | ~2019-05-09 | XMS | Encounter Summary ---
Demographics + + + | Address | [address] | | | [place] [address] | + + + | Home Phone | | + + + | Preferred Language | Unknown | + + + | Marital Status | Single | + + + | Druze Affiliation | Unknown | + + + | Race | Black or | + + + | Ethnic Group | Not or | + + + Author + + + | Author | [facility] | + + + | Organization | [facility] | + + + | Address | Unknown | + + + | Phone | Unavailable | + + + Support + + +---------+ + | Name | Relationship | Address | Phone | + + +---------+ + | Olesya Lamb | ECON | Unknown | | + + +---------+ + Care Team Providers + +------+ + | Care Candy Separator Hard Name | Role | Phone | + +------+ + | Oziel Michael MD | PCP | | + +------+ + Encounter Details +--------+ + + + + | Date | Type | Department | Care Team | Description | +--------+ + + + + | 01/08/ | Ancillary | LAB IMMUNOGENETIC | | | | 2012 | Orders | AND TRANSPLANT LAB | | | | | | [address] | | | | | | [place], | | | | | | [place] [address] | | | +--------+ + + + [...] FLOW HLA AB PRA | Routin | 01/08/2013 | | | | SCREEN I/II | e | 1:58 PM | | | | | | PDT | | | + +--------+ + + + documented in this encounter Results LIT FLOW HLA AB PRA SCREEN I/II (01/08/2013 1:58 PM PDT) + + | Specimen | + + | Blood - Blood | + + + + + + + | Performing | Address | City/State/Zipcode | Phone Number | | Organization | | | | + + + + + | [facility] - | [address] | [place] [address] | | | IMMUNOGENETICS/TRANS | [address] | | | | [facility] | | | | + + + + + documented in this encounter Visit Diagnoses Not on filedocumented in this encounter"
--- OUTSIDE RECORDS SUMMARY | ~2019-05-09 | XMS | Encounter Summary ---
Demographics + + + | Address | [address] | | | [place] [address] | + + + | Home Phone | | + + + | Preferred Language | Unknown | + + + | Marital Status | Single | + + + | Hindu Affiliation | Unknown | + + + | Race | Black or | + + + | Ethnic Group | Not or | + + + Author + + + | Author | [facility] | + + + | Organization [...] Team Providers + +------+ + | Care Elementary Librarian Name | Role | Phone | + +------+ + | Oziel Michael MD | PCP | | + +------+ + Encounter Details +--------+ + + + + | Date | Type | Department | Care Team | Description | +--------+ + + + + | 04/20/ | Lab | LAB IMMUNOGENETIC | | | | 2015 | Requisition | AND TRANSPLANT LAB | | | | | | [address] | | | | | | [place], | | | | | | [place] [address] | | | +--------+ + + + [...] FLOW HLA II AB | Routin | 04/20/2016 | | | | AG ID, BLOOD | e | 4:54 PM | | | | | | PST | | | + +--------+ + + + | LIT FLOW HLA I AB AG | Routin | 04/20/2016 | | Results for this | | ID, BLOOD | e | 4:54 PM | | procedure are in the | | | | PST | | results section. | + +--------+ + + + documented in this encounter Results LIT FLOW HLA II AB AG ID, BLOOD (04/20/2016 4:54 PM PST) + + | Specimen | + + | Blood - Blood | | (substance) | + + + + + + + | Performing | Address | City/State/Zipcode | Phone Number | | Organization | | | | + + + + + | [facility] - | [address] | [place] [address] | | | IMMUNOGENETICS/TRANS | [address] | | | | [facility] | | | | + + + + + LIT FLOW HLA I AB AG ID, BLOOD (04/20/2016 4:54 PM PST) + + + + + + [...] [facility] - | [address] | [place] [address] | | | IMMUNOGENETICS/TRANS | [address] | | | | [facility] | | | | + + + + + documented in this encounter Visit Diagnoses Not on filedocumented in this encounter"
--- OUTSIDE RECORDS SUMMARY | ~2019-05-09 | XMS | Encounter Summary ---
Demographics + + + | Address | [address] | | | [place] [address] | + + + | Home Phone | | + + + | Preferred Language | Unknown | + + + | Marital Status | Single | + + + | Sikhism Affiliation | Unknown | + + + | Race | Black or | + + + | Ethnic Group | Not or | + + + Author + + + | Author | [facility] | + + + | [...] Team Providers + +------+ + | Care Wrecking Car Driver Name | Role | Phone | [...] | | | | | [address] [place], | | | | | | [place] [address] | | | +--------+ + + + [...] [facility] - | [address] | [place] [address] | | | IMMUNOGENETICS/TRANS | [address] | | | | [facility] | | | | + + + + + documented in this encounter Visit Diagnoses Not on filedocumented in this encounter"
--- OUTSIDE RECORDS SUMMARY | ~2019-05-09 | XMS | Encounter Summary ---
Demographics + + + | Address | [address] | | | [place] [address] | + + + | Home Phone | | + + + | Preferred Language | Unknown | + + + | Marital Status | Unknown | + + + | Sikhism Affiliation | Unknown | + + + | Race | Unknown | + + + | Ethnic Group | Unknown | + + + Author + + + | Author | [facility] | | | and [place] | + + + | Organization | [facility] | | | and [...] Team Providers + +------+ + | Care Wheel Loader Operator Name | Role | Phone | + +------+ + | Oziel Michael MD | PCP | | + +------+ + Encounter Details +--------+ + + + + | Date | Type | Department | Care Team | Description | +--------+ + + + + | 10/12/ | Orders Only | [facility] | Alexx Gutierrez MD | | | 2017 | | NEPRHOLOGY [place] | [address] | | | | | [address] | [address] [place], [place] | | | | | [address] [place], [place] | [address] | | | | | [address] | | | | | | [phone] | | | +--------+ + + + [...] 2020 | Visit | | [address] [facility] | | | | | | [address] [place] | | | | | | [address] | | | | | | | | +--------+---------+ + + + documented as of this encounter Visit Diagnoses Not on filedocumented in this encounter"
--- OUTSIDE RECORDS SUMMARY | ~2019-05-09 | XMS | Encounter Summary ---
Demographics + + + | Address | [address] | | | [place] [address] | + + + | Home Phone | | + + + | Preferred Language | Unknown | + + + | Marital Status | Single | + + + | Nondenominational Affiliation | Unknown | + + + | Race | Black or | + + + | Ethnic Group | Not or | + + + Author + + + | Author | [facility] | + + + | Organization | [...] Team Providers + +------+ + | Care Drafting Technician Name | Role | Phone | [...] | | | | | [address] [place], | | | | | | [place] [address] | | | +--------+ + + + [...] [facility] - | [address] | [place] [address] | | | IMMUNOGENETICS/TRANS | [address] | | | | [facility] | | | | + + + + + documented in this encounter Visit Diagnoses Not on filedocumented in this encounter"
--- OUTSIDE RECORDS SUMMARY | ~2019-05-09 | XMS | Encounter Summary ---
Demographics + + + | Address | [address] | | | [place] [address] | + + + | Home Phone [...] Team Providers + +------+ + | Care Road Traffic Controller Name | Role | Phone | [...] + + | 03/06/ | Refill | [facility] | Alexx Gutierrez MD | Medication Refill | | 2019 | | NEPHROLOGY [place] | [address] [facility] | | | | | [address] [facility] | [address] [place], [place] | | | | | [facility] [address] | [id number] | | | | | [place], [place] | | | | | | [address] | | | | | | [phone] | | | +--------+--------+ + + + [...] 2020 | Visit | | [address] [facility] | | | | | | [address] [place] | | | | | | [address] | | | | | | | [...]
--- OUTSIDE RECORDS SUMMARY | ~2019-05-09 | XMS | Encounter Summary ---
Demographics + + + | Address | [address] | | | [place] [address] | + + + | Home Phone | | + + + | Preferred Language | Unknown | + + + | Marital Status | Unknown | + + + | Faith Affiliation | Unknown | + + + | Race | Unknown | + + + | Ethnic Group | Unknown | + + + Author + + + | Author | [facility] | | | and [place] | + + + | Organization | [facility] | | [...] Providers + +------+ + | Care Manager Part Name | Role | Phone | + +------+ + | Oziel Michael MD | PCP | | + +------+ + Encounter Details +--------+ + + + + | Date | Type | Department | Care Team | Description | +--------+ + + + + | 10/12/ | Orders Only | [facility] | Alexx Gutierrez MD | | | 2017 | | NEPRHOLOGY [place] | [address] | | | | | [address] | [address] [place], [place] | | | | | [address] [place], [place] | [address] | | | | | [address] | | | | | | [phone] | | | +--------+ + + + [...] 2020 | Visit | | [address] [facility] | | | | | | [address] [place] | | | | | | [address] | | | | | | | | +--------+---------+ + + + documented as of this encounter Visit Diagnoses Not on filedocumented in this encounter"
--- OUTSIDE RECORDS SUMMARY | ~2019-05-09 | XMS | Encounter Summary ---
Demographics + + + | Address | [address] | | | [place] [address] | + + + | Home Phone | | + + + | Preferred Language | Unknown | + + + | Marital Status | Single | + + + | Church Affiliation | Unknown | + + + | Race | Black or | + + + | Ethnic Group | Not or | + + + Author + + + | Author | [facility] | + + + | Organization | [facility] | + + + | Address | Unknown | + + + | Phone | Unavailable | + + + Support + + +---------+ + | Name | Relationship | Address | Phone | + + +---------+ + | Olesya Lamb | ECON | Unknown | | + + +---------+ + Care Team Providers + +------+ + | Care Clinical Data Abstractor Name | Role | Phone | + [...] | | | | | [address] [place], | | | | | | [place] [address] | | | +--------+ + + + [...]
--- OUTSIDE RECORDS SUMMARY | ~2019-05-09 | XMS | Encounter Summary ---
Demographics + + + | Address | [address] | | | [place] [address] | + + + | Home Phone | | + + + | Preferred Language | Unknown | + + + | Marital Status | Unknown | + + + | Alevism Affiliation | Unknown | + + + [...] Team Providers + +------+ + | Care Coin Teller Name | Role | Phone | + +------+ + PCP | Unavailable | + +------+ + Encounter Details +--------+ + + + + | Date | Type | Department | Care Team | Description | +--------+ + + + + | 07/13/ | Orders Only | [facility] | Conversion | | | 2018 | | NEPHROLOGY [place] | Transaction, | | | | | [address] | Provider Unknown | | | | | [address] [place], [place] | | | | | | [address] | (Fax) | | | | | [phone] | | | +--------+ + + + [...] | | | | | | [address] [place], [place] | | | | | | [address] | | | | | | | [...] - 1.030 | EXTERNAL | | | [place] | | | LAB | | + [...] | | | LAB | | | GRE[place]DI[place] | | | | | + + [...]
--- OUTSIDE RECORDS SUMMARY | ~2019-05-09 | XMS | Encounter Summary ---
Demographics + + + | Address | [address] | | | [place] [address] | + + + | Home Phone | | + + + | Preferred Language | Unknown | + + + | Marital Status | Unknown | + + + | Gnosticist Affiliation | Unknown | + + + | Race | Unknown | + + + | Ethnic Group | Unknown | + + + Author + + + | Author | [facility] | | | and [place] | + + + | Organization | [facility] | | | [...] Team Providers + +------+ + | Care Green Inspector Name | Role | Phone | + +------+ + | Oziel Michael MD | PCP | | + +------+ + Encounter Details +--------+ + + + + | Date | Type | Department | Care Team | Description | +--------+ + + + + | 08/22/ | Orders Only | [facility] | Alexx Gutierrez MD | | | 2019 | | NEPRHOLOGY [place] | [address] | | | | | [address] | [address] [place], [place] | | | | | [address] [place], [place] | [address] | | | | | [address] | | | | | | [phone] | | | +--------+ + + + [...] 2020 | Visit | | [address] [facility] | | | | | | [address] [place] | | | | | | [address] | | | | | | | | +--------+---------+ + + + documented as of this encounter Visit Diagnoses Not on filedocumented in this encounter"
--- OUTSIDE RECORDS SUMMARY | ~2019-05-09 | XMS | Encounter Summary ---
Demographics + + + | Address | [address] | | | [place] [address] | + + + | Home Phone | | + + + | Preferred Language | Unknown | + + + | Marital Status | Unknown | + + + | Sabianist Affiliation | Unknown | + + + | Race | Unknown | + + + | Ethnic Group | Unknown | + + + Author + + + | Author | [facility] | | | and [place] | + + + | Organization | [facility] | | | [...] Team Providers + +------+ + | Care Principal Consultant Name | Role | Phone | + +------+ + | Oziel Michael MD | PCP | | + +------+ + Encounter Details +--------+ + + + + | Date | Type | Department | Care Team | Description | +--------+ + + + + | 06/27/ | Orders Only | [facility] | Conversion | | | 2016 | | NEPHROLOGY [place] | Transaction, | | | | | [address] | Provider Unknown | | | | | [address] [place], [place] | | | | | | [address] | (Fax) | | | | | [phone] | | | +--------+ + + + [...] | | | | | | [address] [place], [place] | | | | | | [address] | | | | | | | | +--------+---------+ + + + documented as of this encounter Procedures + +--------+ + + + | Procedure Name | Priori | Date/Time | Associated Diagnosis | Comments | | | ty | | | | + +--------+ + + + | EXTERNAL LAB: | Routin | 06/27/2016 | | Results for this | | TACROLIMUS LEVEL, | e | 9:35 AM | | procedure are in the | | LC-MS/MS | | PST | | results section. | + +--------+ + + + | EXTERNAL LAB: CBC | Routin | 06/27/2016 | | Results for this | | | e | 9:35 AM | | procedure are in the | | | | PST | | results section. | + +--------+ + + + | IRON AND IRON | Routin | 06/27/2016 | | Results for this | | BINDING CAPACITY | e | 9:35 AM | | procedure are in the | | | | PST | | results section. | + +--------+ + + + | LIPID PANEL | Routin | 06/27/2016 | | Results for this | | | e | 9:35 AM | | procedure are in the | | | | PST | | results section. | + +--------+ + + + | ALT | Routin | 06/27/2016 | | Results for this | | | e | 9:35 AM | | procedure are in the | | | | PST | | results section. | + +--------+ + + + | VITAMIN D, | Routin | 06/27/2016 | | Results for this | | DEFICIENCY SCREEN | e | 9:35 AM | | procedure are in the | | (25-HYDROXY) | | PST | | results section. | + +--------+ + + + | URINALYSIS, | Routin | 06/27/2016 | | Results for this | | MICROSCOPIC ONLY | e | 9:35 AM | | procedure are in the | | | | PST | | results section. | + +--------+ + + + | PROTEIN/CREATININE | Routin | 06/27/2016 | | Results for this | | RATIO, URINE | e | 9:35 AM | | procedure are in the | | | | PST | | results section. | + +--------+ + + + | URIC ACID | Routin | 06/27/2016 | | Results for this | | | e | 9:35 AM | | procedure are in the | | | | PST | | results section. | + +--------+ + + + | TRANSFERRIN | Routin | 06/27/2016 | | Results for this | | | e | 9:35 AM | | procedure are in the | | | | PST | | results section. | + +--------+ + + + | AST | Routin | 06/27/2016 | | Results for this | | | e | 9:35 AM | | procedure are in the | | | | PST | | results section. | + +--------+ + + + | PARATHYROID HORMONE, | Routin | 06/27/2016 | | Results for this | | INTACT | e | 9:35 AM | | procedure are in the | | | | PST | | results section. | + +--------+ + + + | MAGNESIUM | Routin | 06/27/2016 | | Results for this | | | e | 9:35 AM | | procedure are in the | | | | PST | | results section. | + +--------+ + + + | CK TOTAL | Routin | 06/27/2016 | | Results for this | | | e | 9:35 AM | | procedure are in the | | | | PST | | results section. | + +--------+ + + + | RENAL FUNCTION PANEL | Routin | 06/27/2016 | | Results for this | | | e | 9:35 AM | | procedure are in the | | | | PST | | results section. | + +--------+ + + + documented in this encounter Results External Lab: Tacrolimus Level, LC-MS/MS (06/27/2016 9:35 AM PST) + +-------+ + + + | Component | Value | Ref Range | Performed | Pathologist | | | | | At | Signature | + +-------+ + + + | Tacrolimus | 5.3 | | EXTERNAL | | | Level [...] + + Iron and Iron Binding Capacity (06/27/2016 9:35 AM PST) + +-------+ + + + | Component | Value | Ref Range | Performed | Pathologist | | | | | At | Signature | + +-------+ + + + | Iron | 75.51 | 37 - 160 | EXTERNAL | | | | | | LAB | | + +-------+ + + + | Iron | 26.5 | 20 - 55 | EXTERNAL | | | Saturation | | | LAB | | + +-------+ + + + | TIBC | 285 | 245 - 400 | EXTERNAL | [...] + +---------+ + + Protein/Creatinine Ratio, Urine (06/27/2016 9:35 AM PST) + + + + + + | Component | Value | Ref Range | Performed | Pathologist | | | | | At | Signature | + + + + + + | Protein/Cre | 252.3 (A) | 0 - 150 | EXTERNAL [...] + + Vitamin D, Deficiency Screen (25-Hydroxy) (06/27/2016 9:35 AM PST) + +--------+ + + + | Component | Value | Ref Range | Performed | Pathologist | | | | | At | Signature | + +--------+ + + + | Vit D, | 27 (A) | 30 - 100 | EXTERNAL [...] + +---------+ + + Urinalysis, Microscopic Only (06/27/2016 9:35 AM PST) + + + + + [...] + + + + | Specific | 1.020 | 1.005 - 1.030 | EXTERNAL | | | [place] | | | LAB | | + [...] + + + | Protein, | Comment: 75 | | EXTERNAL | | | Urine [...] + +---------+ + + External Lab: CBC (06/27/2016 9:35 AM PST) + + + + + + | Component | Value | Ref Range | Performed | Pathologist | | | | | At | Signature | + + + + + + | WBC | 3.9 (A) | 4.5 - 11.0 10 | EXTERNAL | | | | | | LAB | | + + + + + + | RED CELL | 4.92 | 4.3 - 5.7 10 | EXTERNAL | | | COUNT | | | LAB | | + + + + + + | Hgb | 13.8 | 13.5 - 18.0 | EXTERNAL | | | | | g/dL | LAB | | + + + + + + | Hematocrit, | 42.8 [...] + + + + | Platelet | 161 | 140 - 440 K/ L | EXTERNAL | | | Count | | | LAB | | | Plasma | | | | | + + + + + + | RDW-CV | 16.0 (A) | 10.5 - 15.0 % | [...] | + +---------+ + + Uric Acid (06/27/2016 9:35 AM PST) + +---------+ + + + | Component | Value | Ref Range | Performed | Pathologist | | | | | At | Signature | + +---------+ + + + | Uric Acid | 8.1 (A) | 4.4 - 7.6 | EXTERNAL [...] | | + +---------+ + + Transferrin (06/27/2016 9:35 AM PST) + +--------+ + + + | Component | Value | Ref Range | Performed | Pathologist | | | | | At | Signature | + +--------+ + + + | TRANSFERRIN | 203.35 | 180 - 329 | EXTERNAL | [...] | | + +---------+ + + ALT (06/27/2016 9:35 AM PST) + +-------+ + + + | Component | Value | Ref Range | Performed | Pathologist | | | | | At | Signature | + +-------+ + + + | ALT | 22 | 7 - 52 U/L | EXTERNAL [...] | | + +---------+ + + AST (06/27/2016 9:35 AM PST) + +-------+ + + + [...] + +---------+ + + Parathyroid Hormone, Intact (06/27/2016 9:35 AM PST) + + + + + + | Component | Value | Ref Range | Performed | Pathologist | | | | | At | Signature | + + + + + + | PTH INTACT | 178.6 (A) | 15 - 65 pg/mL | [...] | | + +---------+ + + Magnesium (06/27/2016 9:35 AM PST) + +---------+ + + + [...] | + +---------+ + + CK Total (06/27/2016 9:35 AM PST) + +---------+ + + + | Component | Value | Ref Range | Performed | Pathologist | | | | | At | Signature | + +---------+ + + + | CK, Total | 250 (A) | 24 - 195 [...] + +---------+ + + Renal Function Panel (06/27/2016 9:35 AM PST) + + + + + [...] + + + + | Creatinine | 1.57 (A) | 0.70 - 1.33 | EXTERNAL [...] | | | LAB | | | [facility] | | | | | + + + + + + | Phosphorus, | 2.2 (A) | 2.5 - 5.0 | EXTERNAL | | | Inorganic | | | LAB | | + + + + + + | BUN/Creatin | 12.7 | 6.0 - 28.6 | EXTERNAL | | | ine Ratio | | | LAB | | + + + + + + | Calcium | 9.1 | 8.4 - 10.2 | EXTERNAL | | | | | mg/dL | LAB | | + + + + + + | Estimated | 46 | mg/dL | EXTERNAL | | | [...] | + +---------+ + + Lipid Panel (06/27/2016 9:35 AM PST) + +-------+ + + + | Component | Value | Ref Range | Performed | Pathologist | | | | | At | Signature | + +-------+ + + + | Cholesterol | 188 | mg/dL | EXTERNAL | | | | | | LAB | | + +-------+ + + + | Triglycerid | 116 | 30 - 150 mg/dL | EXTERNAL | | | es | | | LAB | | + +-------+ + + + | HDL | 43.3 | mg/dl | EXTERNAL | | | | | | LAB | | + +-------+ + + + | LDL | 122 | mg/dL | EXTERNAL | | | Cholesterol | | | LAB | | | , | | | | | | Calculated, | | | | | | External | | | | | + +-------+ + + + | LDl/HDL | | | EXTERNAL | | | Ratio | | | LAB | | + +-------+ + + + | Chol/HDL | 4.3 | | EXTERNAL | | | Ratio | | | LAB | | + +-------+ + + + | VLDL | 23 | 4 - 40 mg/dL | EXTERNAL | | | | | | LAB | | + +-------+ + + + | Non HDL | 145 | | EXTERNAL | | | Chol. | | | LAB | | | (LDL+VLDL) | | | | | + +-------+ + + + [...]
--- OUTSIDE RECORDS SUMMARY | ~2019-05-09 | XMS | Encounter Summary ---
Demographics + + + | Address | [address] | | | [place] [address] | + + + | Home Phone | | + + + | Preferred Language | Unknown | + + + | Marital Status | Single | + + + | Synagogue Affiliation | Unknown | + + + | Race | Black or | + + + | Ethnic Group | Not or | + + + Author + + + | Author | [facility] | + + + | Organization | [...] Team Providers + +------+ + | Care Tentmaker Name | Role | Phone | + +------+ + | Oziel Michael MD | PCP | | + +------+ + Encounter Details +--------+ + + + + | Date | Type | Department | Care Team | Description | +--------+ + + + + | 07/25/ | Ancillary | LAB IMMUNOGENETIC | | | | 2012 | Orders | [facility] | | | | | | [address] | | | | | | [place], | | | | | | [place] [address] | | | +--------+ + + + [...] HLA I AB AG | Routin | 07/25/2012 | | Results for this | | ID, BLOOD | e | 11:10 AM | | procedure are in the | | | | PDT | | results section. | + +--------+ + + + documented in this encounter Results LIT FLOW HLA I AB AG ID, BLOOD (07/25/2012 11:10 AM PDT) + + + + + + | Component | Value | Ref Range | Performed | Pathologist | | | | | At | Signature | + + + + + + | LABEL ONLY | Please see lab report | | [facility] - | | | - [facility] | for result. | | IMMUNOGENET | [...] [facility] - | [address] | [place] [address] | | | IMMUNOGENETICS/TRANS | [address] | | | | [facility] | | | | + + + + + documented in this encounter Visit Diagnoses Not on filedocumented in this encounter"
--- OUTSIDE RECORDS SUMMARY | ~2019-05-09 | XMS | Encounter Summary ---
Demographics + + + | Address | [address] | | | [place] [address] | + + + | Home Phone [...] + + + | Author | [facility] | | | and [place] | + + + | Organization | [facility] | | | [...] Team Providers + +------+ + | Care Farm Facility Manager Name | Role | Phone | + +------+ + | Oziel Michael MD | PCP | | + +------+ + Encounter Details +--------+ + + + + | Date | Type | Department | Care Team | Description | +--------+ + + + + | 10/11/ | Orders Only | [facility] | Adrian Shaffer MD | | | 2010 | | [facility] | [address] [facility] | | | | | CLINICAL LABORATORY | [place], [place] | | | | | [address] [facility] | [address] | | | | | [place], [place] | [phone] | | | | | [address] | | | | | | [phone] | | | +--------+ + + + [...] | | | | | | [address] [place], [place] | | | | | | [address] | | | | | | | [...] RECOMMENDED. Testing | | | performed at [facility], [address] [place] [address] | | + + + + +---------+ + + | Performing | Address | City/State/Zipcode | Phone Number | | Organization | | | | + +---------+ + + | EXTERNAL LAB | | | | + +---------+ + + documented in this encounter Visit Diagnoses Not on filedocumented in this encounter"
--- OUTSIDE RECORDS SUMMARY | ~2019-05-09 | XMS | Encounter Summary ---
Demographics + + + | Address | [address] | | | [place] [address] | + + + | Home Phone | | + + + | Preferred Language | Unknown | + + + | Marital Status | Single | + + + | Pentecostalism Affiliation | Unknown | + + + | Race | Black or | + + + | Ethnic Group | Not or | + + + Author + + + | Author | [facility] | + + + [...] Team Providers + +------+ + | Care Experimental Physicist Name | Role | Phone | + [...] | | | | | [address] [place] [place], | | | | | | [place] [address] | | | +--------+ + + + [...] + + + | [facility] - | [address] | [place] [address] | | | IMMUNOGENETICS/TRANS | [address] | | | | [facility] | | | | + + + + + documented in this encounter Visit Diagnoses Not on filedocumented in this encounter"
--- OUTSIDE RECORDS SUMMARY | ~2019-05-09 | XMS | Encounter Summary ---
Demographics + + + | Address | [address] | | | [place] [address] | + + + | Home Phone [...] Team Providers + +------+ + | Care Building Services Coordinator Name | Role | Phone | + +------+ + PCP | Unavailable | + +------+ + Encounter Details +--------+ + + + + | Date | Type | Department | Care Team | Description | +--------+ + + + + | 01/13/ | Hospital | [facility] | Conversion | ESRD (end stage | | 2015 | Encounter | CENTER CV INTRA OP | Transaction, | renal disease) ([facility]) | | | | [address] | Provider Unknown | | | | | [place], [place] | [phone] | | | | | [address] | | | | | | [phone] | Noé Malik MD | | | | | | [address] | | | | | | [place] [address] [place], [place] | | | | | | [address] | | | | | | | [...] Note by Alice Conrad RN at 01/13/15 [id number] Author: Alice Conrad RN Service: Interventional Radiology Author Type: Registered Nu rse Filed: 01/13/15 5521 Date of Service: 01/13/151342 Status: Signed Supervisor Pit And Auxiliaries: Alice Conrad RN (Registered Nurse) Pt tolerated juice well post-procedure, discharge instructions given both written and orall y, will d/c by ambulation with family. onver svitlana Transaction, Provider Unknown - 01/13/2015 1:20 PM PDT Nurse Progress Note by Kathleen Ag RN at 01/13/15 2368 Author: Kathleen Ag RN Service: (none) Author Type: Registered Nurse Filed: 01/13/151319 Date of Service: 01/13/151319 Status: Signed Supervisor Pit And Auxiliaries: Kathleen Ag RN (Registered Nurse) Purse string suture removed, hemostasis obtained, dressing applied. docume nted in this encounter Plan of Treatment +--------+---------+ + + + | Date | Type | Specialty | Care Team | Description | +--------+---------+ + + + | 05/20/ | Office | Nephrology | Alexx Gutierrez MD | | | 2019 | Visit | | [address] [facility] | | | | | | [address] [place], [place] | | | | | | [address] | | | | | | | [...] | | | COMPARISON STUDIES: 06/26/2014 PRIMARY BEVEL FACE STONER AND POLISHER: Noé Malik, | | | , PhD, [...] | | was exchanged to a 6 Guyanese sheath. An 8mm angioplasty balloon was | [...] fistula. COMPARISON | | STUDIES: 06/26/2014 PRIMARY BEVEL FACE STONER AND POLISHER: Noé Malik MD, PhD, RPVI OPERATIONS:1. | [...] The microsheath was exchanged to a 6 Guyanese sheath. An 8mm angioplasty | | balloon [...] EXTERNAL | | | | performed at [facility];[address] | K/uL | LAB | | | | [address];[place], [place] | | | | | | [address] | | | | + + + + + + | RED CELL | 4.56Comment: Testing | 4.20 - 5.70 | EXTERNAL | | | COUNT | performed at [facility];[address] | M/uL | LAB | | | | [address];[place] | | | | | | [address] | | | | + + + + + + | Hgb | 13.9Comment: Testing | 13.2 - 17.0 | EXTERNAL | | | | performed at [facility];888 | g/dL | LAB | | | | [address];[place] | | | | | | [address] | | | | + + + + + + | Hematocrit, | 43.4Comment: Testing | 39.0 - 50.0 % | EXTERNAL | | | POC | performed at [facility];[address] | | LAB | | | | [address];[place] | | | | | | [address] | | | | + + + + + + | MCV | 95.1Comment: Testing | 80.0 - 100.0 fl | EXTERNAL | | | | performed at [facility];[address] | | LAB | | | | [address];[place] | | | | | | [address] | | | | + + + + + + | MCH | 30.5Comment: Testing | 27.0 - 34.0 pg | EXTERNAL | | | | performed at [facility];[address] | | LAB | | | | [address];[place] | | | | | | [address] | | | | + + + + + + | MCHC | 32.1Comment: Testing | 32.0 - 35.5 | EXTERNAL | | | | performed at [facility];888 | g/dL | LAB | | | | [address];[place] | | | | | | [address] | | | | + + + + + + | RDW-CV | 49.4Comment: Testing | 37 - 53 fl | EXTERNAL | | | | performed at [facility];[address] | | LAB | | | | [address];[place] | | | | | | [address] | | | | + + + + + + | Platelet | 201Comment: Testing | 150 - 400 K/uL | EXTERNAL | | | Count | performed at [facility];[address] | | LAB | | | Plasma | [address];[place] | | | | | | [address] | | | | + + + + + + | MPV | 9.3Comment: Testing | fl | EXTERNAL | | | | performed at [facility];[address] | | LAB | | | | [address];[place] | | | | | | [address] | | | | + + + [...] | | | | | performed at [facility] | | | | | | [facility];[place] | | | | | | [address] | | | | + + + [...] EXTERNAL | | | | performed at [facility];[address] | mmol/L | LAB | | | | [address];[place] | | | | | | [address] | | | | + + + + + + | K | 4.8Comment: SLT | 3.5 - 4.9 | EXTERNAL | | | | HEMOLYSISTesting | mmol/L | LAB | | | | performed at [facility];[address] | | | | | | [address];[place] | | | | | | [address] | | | | + + + + + + | Cl | 94 (L)Comment: Testing | 99 - 109 mmol/L | EXTERNAL | | | | performed at [facility];[address] | | LAB | | | | [address];[place] | | | | | | [address] | | | | + + + + + + | CO2 | 32Comment: Testing | 23 - 32 mmol/L | EXTERNAL | | | | performed at [facility];[address] | | LAB | | | | [address];[place] | | | | | | [address] | | | | + + + + + + | Anion Gap | 14Comment: Testing | 5 - 20 mmol/L | EXTERNAL | | | | performed at [facility];[address] | | LAB | | | | [address];[place] | | | | | | [address] | | | | + + + + + + | Glucose, | 97Comment: Testing | 65 - 99 mg/dL | EXTERNAL | | | Fasting | performed at [facility];[address] | | LAB | | | | [address];[place] | | | | | | [address] | | | | + + + + + + | BUN | 42 (H)Comment: Testing | 8 - 25 mg/dL | EXTERNAL | | | | performed at [facility];[address] | | LAB | | | | [address];[place] | | | | | | [address] | | | | + + + + + + | Creatinine | 12 (H)Comment: Testing | 0.70 - 1.30 | EXTERNAL | | | | performed at [facility];[address] | mg/dL | LAB | | | | [address];[place] | | | | | | [address] | | | | + + + + + + | BUN/Creatin | 4Comment: Testing | | EXTERNAL | | | ine Ratio | performed at [facility];[address] | | LAB | | | | [address];[place] | | | | | | [address] | | | | + + + + + + | Calcium | 9.4Comment: Testing | 8.5 - 10.5 | EXTERNAL | | | | performed at [facility];[address] | mg/dL | LAB | | | | [address];[place] | | | | | | [address] | | | | + + + [...] | | | | | | at [facility];[address] [place] [address] | | | | | | [facility];[place] [address] | | | | + + + [...]
--- OUTSIDE RECORDS SUMMARY | ~2019-05-09 | XMS | Encounter Summary ---
Demographics + + + | Address | [address] | | | [place] [address] | + + + | Home Phone | | + + + | Preferred Language | Unknown | + + + | Marital Status | Single | + + + | Religion Affiliation | Unknown | + + + | Race | Black or | + + + | Ethnic Group | Not or | + + + Author + + + | Author | [facility] | [...] Team Providers + +------+ + | Care School Child Care Attendant Name | Role | Phone | [...] | | | | | [address], | | | | | | [place] [address] | | | +--------+ + + + [...] [facility] - | [address] | [place] [address] | | | IMMUNOGENETICS/TRANS | [address] | | | | [facility] | | | | + + + + + documented in this encounter Visit Diagnoses Not on filedocumented in this encounter"
--- OUTSIDE RECORDS SUMMARY | ~2019-05-09 | XMS | Encounter Summary ---
Demographics + + + | Address | [address] | | | [place] [address] | + + + | Home Phone [...] + + + | Author | [facility] | | | and [place] | + + + | Organization | [facility] | | [...] Team Providers + +------+ + | Care Frit Coater Name | Role | Phone | + +------+ + PCP | Unavailable | + +------+ + Encounter Details +--------+ + + + + | Date | Type | Department | Care Team | Description | +--------+ + + + + | 10/10/ | Hospital | [facility] | Gina Cabello | Unspecified | | 2010 - | Encounter | [facility] | [place] [id number] | essential | | | | INTENSIVE CARE UNIT | [address] | hypertension; | | 10/17/ | | [address] | [place], [place] | Unspecified iron | | 2010 | | [place], [place] | [address] | deficiency anemia; | | | | [address] | [phone] | Gross hematuria; | | | | [phone] | | Cyst of kidney, | | | | | Yulissa Andre MD | acquired; Other | | | | | [address] | Chronic Pulmonary | | | | | [place] [address] | Heart Diseases | | | | | [phone] | ([facility]); Morbid | | | | | | obesity ([facility]); Hx of | | | | | | past noncompliance; | | | | | | Encntr long-term | | | | | | NSAID use; BMI | | | | | | 31.0-31.9,Adult; | | | | | | Unspecified renal | | | | | | failure; Mal hy kid | | | | | | w cr kid V ([facility]); | | | | | | End stage renal | | | | | | disease ([facility]); | | | | | | Rhabdomyolysis; | | | | | | Cellulitis of leg; | | | | | | Acidosis | +--------+ + + + + Social [...] 2020 | Visit | | [address] [facility] | | | | | | [address] | | | | | | [address] | | | | | | | | +--------+---------+ + + + documented as of this encounter Procedures + +--------+ + + + | Procedure Name | Priori | Date/Time | Associated Diagnosis | Comments | | | ty | | | | + +--------+ + + + | US RENAL LIMITED | Routin | 10/12/2010 | | Results for this | | | e | 9:39 PM | | procedure are in the | | | | PDT | | results section. | + +--------+ + + + | CT GUIDED NEEDLE | Routin | 10/12/2010 | | Results for this | | PLACEMENT | e | 5:44 PM | | procedure are in the | | | | PDT | | results section. | + +--------+ + + + | IR PLACEMENT | Routin | 10/12/2010 | | Results for this | | TUNNELED CENTRAL | e | 4:18 PM | | procedure are in the | | VENOUS CATHETER > 5 | | PDT | | results section. | | YEARS | | | | | + +--------+ + + + | US GUIDED VASCULAR | Routin | 10/12/2010 | | Results for this | | ACCESS | e | 4:18 PM | | procedure are in the | | | | PDT | | results section. | + +--------+ + + + | XR CHEST 1 VIEW | Routin | 10/11/2010 | | Results for this | | | e | 5:46 AM | | procedure are in the | | | | PDT | | results section. | + +--------+ + + + | ECHO COMPLETE | Routin | 10/10/2010 | | Results for this | | | e | 9:05 AM | | procedure are in the | | | | PDT | | results section. | + +--------+ + + + | US RENAL LIMITED | Routin | 10/10/2010 | | Results for this | | | e | 7:41 AM | | procedure are in the | | | | PDT | | results section. | + +--------+ + + + | CT CHEST WO CONTRAST | Routin | 10/10/2010 | | Results for this | | | e | 4:10 AM | | procedure are in the | | | | PDT | | results section. | + +--------+ + + + | XR CHEST 2 VIEWS | Routin | 10/10/2010 | | Results for this | | | e | 2:34 AM | | procedure are in the | | | | PDT | | results section. | + +--------+ + + + documented in this encounter Results US Renal Limited (10/12/2010 9:39 PM PDT) + + | Specimen | + + | | + + + + + | Narrative | Performed At | + + + | [facility] [address] Ph: | | | Patient Name: NIK MA Date of : | | | 1960 Medical Record: [id number] Account: [id number] | | | Exam Date/Time: 10/12/2010 19:50 Ordering | | | Physician: GINA CABELLO Order Detail: [id number] Exam Description: | | | US RETROPERITONEAL LTD | | | | | | [place] [facility] US RETROPERITONEAL LTD 10/12/2010 7:50 PM | | | HISTORY: 50 years. Male. Question right kidney hematoma status | | | post CT guided biopsy. Patient is unable to void. TECHNIQUE: | | | Imaging performed using a 4-MHz curved array transducer. | | | COMPARISON: Renal ultrasound SEPTEMBER 22. FINDINGS: Right Kidney: | | | 9.5 cm greatest longitudinal dimension. Increased echogenicity | | | suggesting chronic medical renal disease. No solid or cystic mass | | | is noted. No renal parenchymal or collecting system calculi are | | | seen.. No hydronephrosis is seen. No subcapsular hematoma. Left | | | Kidney: Not evaluated. The pre-void volume of the bladder is 324 | | | cc. The patient was unable to void. A newly seen echogenic | | | dependent focus is noted in the urinary bladder, about the Means | | | catheter, probably a hematoma, measuring approximately 8 cm greatest | | | dimension. IMPRESSION: 1. No definitive hematoma involving the | | | right kidney. 2. Echogenic right kidney, consistent with medical | | | renal disease. 3. Probable 8-cm greatest dimension intraluminal | | | urinary bladder hematoma about the indwelling Means catheter. | | | | | + + + + + | Procedure Note | + + | Abhishek, Rad Conversion - 01/05/2019 5:11 PM PDT | | [facility] | | [facility] [address] | | | | | | Patient Name: NIK MA | | Date of : 1960 | | Medical Record: [id number] | | Account: [id number] | | | | | | Exam Date/Time: 10/12/2010 19:50 | | Ordering Physician: GINA CABELLO | | Order Detail: [id number] | | Exam Description: US RETROPERITONEAL LTD | | | | [facility] | | US RETROPERITONEAL LTD | | 10/12/2010 7:50 PM | | | | HISTORY: | | 50 years. Male. Question right kidney hematoma status post CT guided | | biopsy. Patient is unable to void. | | | | TECHNIQUE: | | Imaging performed using a 4-MHz curved array transducer. | | | | COMPARISON: | | Renal ultrasound SEPTEMBER 22. | | | | FINDINGS: | | Right Kidney: 9.5 cm greatest longitudinal dimension. Increased | | echogenicity suggesting chronic medical renal disease. No solid or cystic | | mass is noted. No renal parenchymal or collecting system calculi are | | seen.. No hydronephrosis is seen. No subcapsular hematoma. | | | | Left Kidney: Not evaluated. | | | | The pre-void volume of the bladder is 324 cc. The patient was unable to | | void. A newly seen echogenic dependent focus is noted in the urinary | | bladder, about the Means catheter, probably a hematoma, measuring | | approximately 8 cm greatest dimension. | | | | IMPRESSION: | | 1. No definitive hematoma involving the right kidney. | | | | 2. Echogenic right kidney, consistent with medical renal disease. | | | | 3. Probable 8-cm greatest dimension intraluminal urinary bladder | | hematoma about the indwelling Means catheter. | | | | | + + CT Guided Needle Placement (10/12/2010 5:44 PM PDT) + + | Specimen | + + | | + + + + + | Narrative | Performed At | + + + | [facility] [address] Ph: | | | Patient Name: NIK MA Date of : | | | 1960 Medical Record: [id number] Account: [id number] | | | Exam Date/Time: 10/12/2010 09:00 Ordering | | | Physician: CINDY CAO Order Detail: [id number] Exam Description: | | | CT GUIDED NEEDLE BIOPSY | | | | | | [facility]IK ALYX CT GUIDED NEEDLE BIOPSY 10/12/2010 9:00 AM | | | HISTORY: 50 years. Male. Renal failure. COMPARISON: None. | | | DESCRIPTION OF PROCEDURE: Written informed consent was obtained. | | | A timeout was performed. Patient positioning: Prone. Axial semiconductor packages platemaker | | | images were obtained through region of interest with a skin marker | | | grid. A skin site was selected and marked. The skin was then | | | prepped and draped in the usual sterile fashion and anesthetized with | | | 1% lidocaine buffered with sodium bicarbonate. Subsequently, an | | | 17-gauge Bard core biopsy guide needle was advanced using CT | | | guidance. Due to the patient taking variable size breaths there was a | | | large amount of movement of the lower pole of the kidney between | | | images. Several skin sites were used to try to place the needle tip | | | near the lower pole. Eventually a satisfactory position was | | | achieved. The guide needle was advanced into the lower pole of the | | | kidney. Brown fluid was noted flowing from the needle tip indicating | | | placement of the needle within an old hemorrhagic cyst. A 1 cc | | | sample of the fluid was collected and sent to pathology for culture. | | | 3 core biopsy sample(s) obtained, placed in saline and sent to | | | pathology. Before the guide needle was removed, a Gelfoam slurry | | | was injected along the needle tract. A limited set of axial images | | | were then obtained through the area biopsied. No large perinephric | | | hematoma was noted. The patient tolerated the procedure well. | | | COMPLICATIONS: Proximally 100 cc of right red blood was noted in the | | | patient's Means catheter following the procedure. MEDICATIONS: | | | I.V. conscious sedation was supervised by Dr. Beasley using Versed and | | | Fentanyl for 30 minutes. Using automated blood pressure, EKG and | | | pulse oximetry, the patient was independently monitored by a | | | radiology nurse certified to give conscious sedation. There were no | | | sedation complications. IMPRESSION AND PLAN: 1. CT core needle | | | biopsy of right kidney completed. Three cores obtained. These | | | were reviewed by Dr. Crain, pathologist, who noted there were only | | | scarce glomeruli in one of the cores. The other cores showed | | | tubules and perinephric fat. If the samples are ultimately | | | nondiagnostic another biopsy will have to be attempted in the future. | | | Due to the current bleeding in the urinary tract no further | | | attempts will be made today. 2. No further imaging is required | | | before discharge. 3. The patient was returned to their room in | | | stable condition. I called Dr. Cabello, the hospitalist taking care | | | of the patient with these results at 5:57 p.m. I ordered an | | | hemoglobin and hematocrit level to be drawn in two hours to assess | | | for blood loss. Electronically signed by Mainor Beasley DO on | | | 10/12/2010 6:22 PM | | + + + + + | Procedure Note | + + | Manoj Weiss - 01/05/2019 5:11 PM PDT | | [facility] | | [facility] [address] | | | | | | Patient Name: NIK MA | | Date of : 1960 | | Medical Record: [id number] | | Account: [id number] | | | | | | Exam Date/Time: 10/12/2010 09:00 | | Ordering Physician: CINDY CAO | | Order Detail: [id number] | | Exam Description: CT GUIDED NEEDLE BIOPSY | | | | [facility] | | CT GUIDED NEEDLE BIOPSY | | 10/12/2010 9:00 AM | | | | HISTORY: | | 50 years. Male. Renal failure. | | | | COMPARISON: | | None. | | | | DESCRIPTION OF PROCEDURE: | | Written informed consent was obtained. A timeout was performed. | | Patient positioning: Prone. | | Axial semiconductor packages platemaker images were obtained through region of interest with a skin | | marker grid. A skin site was selected and marked. The skin was then | | prepped and draped in the usual sterile fashion and anesthetized with 1% | | lidocaine buffered with sodium bicarbonate. Subsequently, an 17-gauge Bard | | core biopsy guide needle was advanced using CT guidance. Due to the patient | | taking variable size breaths there was a large amount of movement of the | | lower pole of the kidney between images. Several skin sites were used to | | try to place the needle tip near the lower pole. Eventually a satisfactory | | position was achieved. The guide needle was advanced into the lower pole | | of the kidney. Brown fluid was noted flowing from the needle tip indicating | | placement of the needle within an old hemorrhagic cyst. A 1 cc sample of | | the fluid was collected and sent to pathology for culture. 3 core biopsy | | sample(s) obtained, placed in saline and sent to pathology. Before the | | guide needle was removed, a Gelfoam slurry was injected along the needle | | tract. A limited set of axial images were then obtained through the area | | biopsied. No large perinephric hematoma was noted. The patient tolerated | | the procedure well. | | | | COMPLICATIONS: | | Proximally 100 cc of right red blood was noted in the patient's Means | | catheter following the procedure. | | | | MEDICATIONS: | | I.V. conscious sedation was supervised by Dr. Beasley using Versed and | | Fentanyl for 30 minutes. Using automated blood pressure, EKG and pulse | | oximetry, the patient was independently monitored by a radiology nurse | | certified to give conscious sedation. There were no sedation complications. | | | | IMPRESSION AND PLAN: | | 1. CT core needle biopsy of right kidney completed. Three cores | | obtained. These were reviewed by Dr. Crain, pathologist, who noted there | | were only scarce glomeruli in one of the cores. The other cores showed | | tubules and perinephric fat. If the samples are ultimately nondiagnostic | | another biopsy will have to be attempted in the future. Due to the current | | bleeding in the urinary tract no further attempts will be made today. | | 2. No further imaging is required before discharge. | | 3. The patient was returned to their room in stable condition. I | | called Dr. Cabello, the hospitalist taking care of the patient with these | | results at 5:57 p.m. I ordered an hemoglobin and hematocrit level to be | | drawn in two hours to assess for blood loss. | | | | | + + US Guided Vascular Access (10/12/2010 4:18 PM PDT) + + | Specimen | + + | | + + + + + | Narrative | Performed At | + + + | See medical record for report. This is a converted record that was | | | non-reportable in [employer] system. | | + + + + + | Procedure Note | + + | Manoj Weiss Conversion - 01/05/2019 5:11 PM PDT See medical record for report. This is | | a converted record that was non-reportable in [employer] system. | + + IR Placement Tunneled CV Cath (10/12/2010 4:18 PM PDT) + + | Specimen | + + | | + + + + + | Narrative | Performed At | + + + | [facility] [address] Ph: | | | Patient Name: NIK MA Date of : | | | 1960 Medical Record: [id number] Account: [id number] | | | Exam Date/Time: 10/12/2010 07:00 Ordering | | | Physician: CINDY CAO Order Detail: [id number] Exam Description: | | | IR TUNNELED CV CATHETER INSERT | | | | | | [facility] IR TUNNELED CV CATHETER INSERT 10/12/2010 7:00 AM | | | HISTORY: 50 years. Male. Acute on chronic kidney disease 5 needs | | | immediate access for hemodialysis. PROCEDURE 1. Sonography | | | of the lower neck veins. 2. Sonographic guidance for access into | | | the right jugular vein. 3. Placement of 19 cm, 14.5-Solomon Islander | | | dual-lumen tunneled palindrome hemodialysis catheter in the right | | | upper chest with its tip in the upper right atrium. | | | MEDICATIONS/RADIATION DOSE Lidocaine 1% for local anesthesia, | | | Versed 1 mg intravenous, Fentanyl 50 mcg intravenous, Ancef 1 g | | | intravenous. Radiation dose 3 mGy. Fluoroscopy time 0.1 minutes. | | | Intra-procedure sedation time 15 minutes. Appropriate physiologic | | | monitoring, maintenance of adequate conscious sedation and | | | independent correction supervision of the conscious sedation was | | | performed throughout the procedure. FINDINGS 1. Sonography of | | | the lower neck veins revealed widely patent, compressible right | | | jugular vein. 2. Real-time visualization of the needle entry into | | | the right jugular vein under sonography was noted. Image | | | documenting the same was obtained and placed in patient records. 3. | | | Upper chest radiograph shows dual-lumen, 14.5-Solomon Islander, 19-cm, | | | tunneled dialysis catheter with its tip in the upper portion of the | | | right atrium. PROCEDURE Informed written consent obtained | | | from the patient after explaining the procedure, risks and | | | alternatives. The patient understood the discussion and expressed a | | | wish to proceed. The patient was placed supine on the x-ray | | | table. Sonography of the lower neck veins revealed widely patent | | | and compressible right jugular vein. Supraclavicular and | | | infraclavicular regions are prepped in the usual sterile fashion. | | | Skin and subcutaneous tissues then infiltrated with 1% lidocaine. | | | Right jugular vein was accessed using a micropuncture needle and | | | exchanged for a 4-Solomon Islander micropuncture sheath over a 0.018 wire. | | | Skin in the infraclavicular region was infiltrated with 1% | | | lidocaine and a 5-mm skin incision was made. A 14.5-Solomon Islander, | | | dual-lumen, 19-cm tunneled hemodialysis catheter was placed a | | | subcutaneous tunnel using a metallic tunneler. The 4-Solomon Islander sheath | | | was exchanged for a 0.035, 3-mm J-wire with its tip in the right | | | atrium under fluoroscopy guidance. The skin and subcutaneous tract | | | was dilated using at 12 and 14-Solomon Islander facial dilators. A 15-Solomon Islander | | | peel-away sheath was placed over the wire with its tip in the upper | | | right atrium. Free end of the dialysis catheter was placed with its | | | tip in the upper right atrium and sheath was removed. Venotomy site | | | and catheter insertion site closure using purse string suture with | | | 3-0 Vicryl. Dermabond was also applied to insertion and venotomy | | | site. The catheter was secured to the skin using 2-0 Prolene. | | | Both ports of the catheter aspirated and flushed freely. The | | | radiograph of the upper chest was obtained. IMPRESSION 1. | | | Sonography of the lower neck veins. 2. Successful placement of a | | | 14.5-Solomon Islander dual-lumen 19-cm tunneled hemodialysis catheter with its | | | tip in the upper portion of the right atrium without incidence. | | | | | + + + + + | Procedure Note | + + | Manoj Weiss - 01/05/2019 5:11 PM PDT | | [facility] | | [facility] [address] | | | | | | Patient Name: NIK MA | | Date of : 1960 | | Medical Record: [id number] | | Account: [id number] | | | | | | Exam Date/Time: 10/12/2010 07:00 | | Ordering Physician: CINDY CAO | | Order Detail: [id number] | | Exam Description: IR TUNNELED CV CATHETER INSERT | | | | NIK [facility]YX | | IR TUNNELED CV CATHETER INSERT | | 10/12/2010 7:00 AM | | | | HISTORY: | | 50 years. Male. Acute on chronic kidney disease 5 needs immediate access | | for hemodialysis. | | | | PROCEDURE | | | | 1. Sonography of the lower neck veins. | | 2. Sonographic guidance for access into the right jugular vein. | | 3. Placement of 19 cm, 14.5-Solomon Islander dual-lumen tunneled palindrome | | hemodialysis catheter in the right upper chest with its tip in the upper | | right atrium. | | | | | | MEDICATIONS/RADIATION DOSE | | | | Lidocaine 1% for local anesthesia, Versed 1 mg intravenous, Fentanyl 50 mcg | | intravenous, Ancef 1 g intravenous. Radiation dose 3 mGy. Fluoroscopy | | time 0.1 minutes. Intra-procedure sedation time 15 minutes. Appropriate | | physiologic monitoring, maintenance of adequate conscious sedation and | | independent correction supervision of the conscious sedation was | | performed throughout the procedure. | | | | FINDINGS | | 1. Sonography of the lower neck veins revealed widely patent, | | compressible right jugular vein. | | 2. Real-time visualization of the needle entry into the right jugular | | vein under sonography was noted. Image documenting the same was obtained | | and placed in patient records. | | 3. Upper chest radiograph shows dual-lumen, 14.5-Solomon Islander, 19-cm, | | tunneled dialysis catheter with its tip in the upper portion of the right | | atrium. | | | | PROCEDURE | | | | Informed written consent obtained from the patient after explaining the | | procedure, risks and alternatives. The patient understood the discussion | | and expressed a wish to proceed. | | | | The patient was placed supine on the x-ray table. Sonography of the lower | | neck veins revealed widely patent and compressible right jugular vein. | | Supraclavicular and infraclavicular regions are prepped in the usual | | sterile fashion. Skin and subcutaneous tissues then infiltrated with 1% | | lidocaine. Right jugular vein was accessed using a micropuncture needle | | and exchanged for a 4-Solomon Islander micropuncture sheath over a 0.018 wire. Skin | | in the infraclavicular region was infiltrated with 1% lidocaine and a 5-mm | | skin incision was made. A 14.5-Solomon Islander, dual-lumen, 19-cm tunneled | | hemodialysis catheter was placed a subcutaneous tunnel using a metallic | | tunneler. The 4-Solomon Islander sheath was exchanged for a 0.035, 3-mm J-wire with | | its tip in the right atrium under fluoroscopy guidance. The skin and | | subcutaneous tract was dilated using at 12 and 14-Solomon Islander facial dilators. | | A 15-Sol[place] Islander peel-away sheath was placed over the wire with its tip in the | | upper right atrium. Free end of the dialysis catheter was placed with its | | tip in the upper right atrium and sheath was removed. Venotomy site and | | catheter insertion site closure using purse string suture with 3-0 Vicryl. | | Dermabond was also applied to insertion and venotomy site. The catheter | | was secured to the skin using 2-0 Prolene. Both ports of the catheter | | aspirated and flushed freely. The radiograph of the upper chest was | | obtained. | | | | IMPRESSION | | | | 1. Sonography of the lower neck veins. | | 2. Successful placement of a 14.5-Solomon Islander dual-lumen 19-cm tunneled | | hemodialysis catheter with its tip in the upper portion of the right atrium | | without incidence. | | | | | + + XR Chest 1 Vw (10/11/2010 5:46 AM PDT) + + | Specimen | + + | | + + + + + | Narrative | Performed At | + + + | [facility] [address] Ph: | | | Patient Name: NIK MA Date of : | | | 1960 Medical Record: [id number] Account: [id number] | | | Exam Date/Time: 10/11/2010 05:23 Ordering | | | Physician: YULISSA ANDRE Order Detail: [id number] Exam Description: | | | XR CHEST 1 VIEW | | | | | | HISTORY: Evaluate tubes and lines. SCANNING PROTOCOL: One view | | | chest. FINDINGS: Compared with october 10, 2010. There is | | | persistent moderate cardiomegaly. The mild bibasilar infiltrates or | | | edema persist with little significant change. No pneumothorax or | | | pleural effusion. IMPRESSION: 1. Cardiomegaly and mild | | | bibasilar infiltrates or edema with little significant change. | | | | | + + + + + | Procedure Note | + + | Manoj Weiss - 01/05/2019 5:11 PM PDT | | [facility] | | [facility] [address] | | | | | | Patient Name: NIK MA | | Date of : 1960 | | Medical Record: [id number] | | Account: [id number] | | | | | | Exam Date/Time: 10/11/2010 05:23 | | Ordering Physician: YULISSA ANDRE | | Order Detail: [id number] | | Exam Description: XR CHEST 1 VIEW | | | | HISTORY: | | Evaluate tubes and lines. | | | | SCANNING PROTOCOL: | | One view chest. | | | | FINDINGS: | | Compared with october 10, 2010. There is persistent moderate cardiomegaly. | | The mild bibasilar infiltrates or edema persist with little significant | | change. No pneumothorax or pleural effusion. | | | | IMPRESSION: | | 1. Cardiomegaly and mild bibasilar infiltrates or edema with little | | significant change. | | | | | + + ECHO Complete (10/10/2010 9:05 AM PDT) + + | Specimen | + + | | + + + + + | Narrative | Performed At | + + + | [place] [address] | | | Patient Name: NIK MA Date of : | | | 1960 Medical Record: [id number] Account: [id number] | | | Exam Date/Time: 10/10/2010 08:25 Performing | | | Physician: Izabel Mays MD Order Detail: [id number] Exam Description: | | | ECHO CARDIAC ADULT WITH DOPPLER COLOR FLOW | | | | | | INDICATIONS EVAL LV FUNCTION HX HTN CONCLUSIONS | | | 1. Overall left ventricular systolic function is | | | low-normal with, an EF between 50 - 55 %. 2. There is severe | | | concentric left ventricular hypertrophy. 3. The diastolic filling | | | pattern indicates impaired relaxation consistent with mild dysfunction | | | (Grade I). 4. The LV end diastolic pressure is elevated. 5. The | | | left atrium is moderately dilated. 6. The right atrium is moderately | | | enlarged. 7. Mild mitral regurgitation is present. 8. Moderate | | | tricuspid regurgitation present. 9. There is moderate to severe | | | pulmonary hypertension. 10. The right ventricular systolic pressure | | | (pulmonary artery systolic pressure), as measured by Doppler, is | | | 71.52mmHg. FINDINGS -------- ECG rhythm: Sinus rhythm. ECG | | | rhythm: Resting tachycardia (HR>100bpm). Study: A 2-dimensional | | | transthoracic echocardiogram with m-mode, spectral and color flow | | | Doppler was perfomed. Study: This was a technically adequate study. | | | Left Ventricle: Overall left ventricular systolic function is | | | low-normal with, an EF between 50 - 55 %. Left Ventricle: The left | | | ventricle cavity size is normal. Left Ventricle: There is severe | | | concentric left ventricular hypertrophy. Left Ventricle: The | | | diastolic filling pattern indicates impaired relaxation consistent | | | with mild dysfunction (Grade I). Left Ventricle: The LV end diastolic | | | pressure is elevated. Right Ventricle: The right ventricle is mildly | | | enlarged measuring between 3.4 - 3.7 cm. Left Atrium: The left | | | atrium is moderately dilated. Right Atrium: The right atrium is | | | moderately enlarged. Aortic Valve: The aortic valve is trileaflet, | | | and appears anatomically normal. No aortic stenosis or regurgitation. | | | Mitral Valve: The mitral valve is normal. Mitral Valve: Mild mitral | | | regurgitation is present. Tricuspid Valve: The tricuspid valve | | | appears structurally normal. Tricuspid Valve: Moderate tricuspid | | | regurgitation present. Tricuspid Valve: There is moderate to severe | | | pulmonary hypertension. Tricuspid Valve: The right ventricular | | | systolic pressure (pulmonary artery systolic pressure), as measured by | | | Doppler, is 71.52mmHg. Pulmonic Valve: Pulmonic valve appears | | | structurally normal. Pericardium: There is no pericardial effusion. | | | IVC/Hepatic Veins: The IVC is normal size (1.5-2.5cm) and collapses | | | >50% with sniff, consistent with central venous pressures of 5-10mmHg. | | | Mass: No mass visualized Thrombus: No clot visualized Septum: No | | | ASD observed. Septum: No VSD observed. MEASUREMENTS | | | Ao Diam: 3.26 cm IVC: 2.56 cm LA Diam: 4.69 | | | cm LA Major: 6.08 cm EDV(Teich): 77.27 ml IVSd: 1.79 cm | | | LVIDd: 4.17 cm LVPWd: 1.88 cm LVOT Diam: 2.11 cm %FS: | | | 35.88 % EF(Teich): 65.86 % ESV(Teich): 26.37 ml IVSs: 1.85 | | | cm LVIDs: 2.67 cm LVPWs: 1.85 cm SV(Teich): 50.90 ml RA | | | Major: 6.79 cm RVIDd: 3.70 cm LVEF MOD A2C: 57.46 % SV MOD | | | A2C: 35.32 ml LVEF MOD A4C: 70.48 % SV MOD A4C: 41.45 ml | | | EF Biplane: 64.27 % LVEDV MOD BP: 63.06 ml LVESV MOD BP: | | | 22.52 ml LVEDV MOD A2C: 61.47 ml LVLd A2C: 6.66 cm LVEDV MOD | | | A4C: 58.81 ml LVLd A4C: 6.51 cm LVESV MOD A2C: 26.15 ml | | | LVLs A2C: 5.54 cm LVESV MOD A4C: 17.35 ml LVLs A4C: 4.92 cm | | | LAESV(A-L): 95.99 ml LAESV Index (A-L): 45.71 ml/m2 LAAs | | | A2C: 23.14 cm2 LAESV A-L A2C: 88.57 ml LALs A2C: 5.13 cm | | | LAAs A4C: 25.08 cm2 LAESV A-L A4C: 81.76 ml LALs A4C: 6.53 | | | cm Ao Diam: 3.31 cm AV Cusp: 2.23 cm LA Diam: 6.38 cm | | | LA/Ao: 1.92 %FS: 43.32 % EDV(Teich): 91.75 ml EF(Teich): | | | 74.64 % ESV(Teich): 23.26 ml IVSd: 1.61 cm IVSs: 1.51 | | | cm LVIDd: 4.48 cm LVIDs: 2.54 cm LVPWd: 1.37 cm LVPWs: | | | 1.51 cm SV(Teich): 68.48 ml IVC diameter: 2.44 cm IVC | | | collapse: 1.01 cm IVC % collapse: 56.17 % HR: 99.27 BPM AV | | | maxP.88 mmHg AV meanP.83 mmHg AV Vmax: 2.22 m/s | | | AV Vmean: 1.43 m/s AV VTI: 34.33 cm BANG Vmax: 2.00 cm2 BANG | | | (VTI): 2.01 cm2 LVCI Dopp: 3.28 l/minm2 LVCO Dopp: 6.90 | | | l/min HR: 99.58 BPM LVOT maxP.49 mmHg LVOT meanPG: | | | 3.84 mmHg LVSI Dopp: 33.02 ml/m2 LVSV Dopp: 69.35 ml LVOT | | | Vmax: 1.27 m/s LVOT Vmean: 0.92 m/s LVOT VTI: 19.77 cm | | | MCO: 255.08 ms MV A Micheal: 0.60 m/s MV DecT: 150.76 ms MV E | | | Micheal: 1.52 m/s MV E/A Ratio: 2.53 MV PHT: 44.29 ms MVA By | | | PHT: 4.96 cm2 MV A Dur: 121.99 ms MV maxP.18 mmHg MV | | | meanP.04 mmHg MV Vmax: 1.51 m/s MV Vmean: 0.75 m/s MV | | | VTI: 26.86 cm MVA (VTI): 2.58 cm2 Septal e': 0.07 m/s | | | Septal E/e': 21.69 Lateral e': 0.06 m/s Lateral E/e': 21.93 | | | P Vein A: 0.29 m/s P Vein A Dur: 73.93 ms P Vein D: 0.84 | | | m/s P Vein S/D Ratio: 0.81 P Vein S: 0.69 m/s HR: 92.21 | | | BPM PV maxP.26 mmHg PV meanP.68 mmHg PV Vmax: 0.90 | | | m/s PV Vmean: 0.59 m/s PV VTI: 14.52 cm RAP: 5 mmHg | | | RVSP: 71.52 mmHg TR maxP.52 mmHg TR Vmax: 4.07 m/s TV | | | A Micheal: 0.35 m/s TV Dec Elbert: 3.33 m/s2 TV Dec Time: | | | 188.76 ms TV E Micheal: 0.62 m/s TV E/A Ratio: 1.78 | | | Military Professional: JOHNNY Authenticated by: Izabel Mays MD Report Date/Time: | | | 10-10-2010 13:11:33 | | + + + + + | Procedure Note | + + | Abhishek Rad Conversion - 01/05/2019 5:11 PM [facility] | | [place], [place] [address]: Patient Name: NIK MADate of : | | 1960Medical Record: [id number]: [id number] | | Date/Time: 10/10/2010 08:25Performing Physician: Izabel Mays MDOrder Detail: | | Description: ECHO CARDIAC ADULT WITH DOPPLER COLOR | | FLOW INDICATIONS | | -EVAL LV FUNCTION HX HTN CONCLUSIONS 1. Overall left ventricular systolic | | function is low-normal with, an EF between 50 - 55 %.2. There is severe concentric left | | ventricular hypertrophy.3. The diastolic filling pattern indicates impaired relaxation | | consistent with mild dysfunction (Grade I).4. The LV end diastolic pressure is | | elevated.5. The left atrium is moderately dilated.6. The right atrium is moderately | | enlarged.7. Mild mitral regurgitation is present.8. Moderate tricuspid regurgitation | | present.9. There is moderate to severe pulmonary hypertension.10. The right ventricular | | systolic pressure (pulmonary artery systolic pressure), as measured by Doppler, is | | 71.52mmHg. FINDINGS--------ECG rhythm: Sinus rhythm.ECG rhythm: Resting tachycardia | | (HR>100bpm).Study: A 2-dimensional transthoracic echocardiogram with m-mode, spectral | | and color flow Doppler was perfomed.Study: This was a technically adequate study.Left | | Ventricle: Overall left ventricular systolic function is low-normal with, an EF between | | 50 - 55 %.Left Ventricle: The left ventricle cavity size is normal.Left Ventricle: There | | is severe concentric left ventricular hypertrophy.Left Ventricle: The diastolic filling | | pattern indicates impaired relaxation consistent with mild dysfunction (Grade I).Left | | Ventricle: The LV end diastolic pressure is elevated.Right Ventricle: The right | | ventricle is mildly enlarged measuring between 3.4 - 3.7 cm.Left Atrium: The left atrium | | is moderately dilated.Right Atrium: The right atrium is moderately enlarged.Aortic | | Valve: The aortic valve is trileaflet, and appears anatomically normal. No aortic | | stenosis or regurgitation.Mitral Valve: The mitral valve is normal.Mitral Valve: Mild | | mitral regurgitation is present.Tricuspid Valve: The tricuspid valve appears | | structurally normal.Tricuspid Valve: Moderate tricuspid regurgitation present.Tricuspid | | Valve: There is moderate to severe pulmonary hypertension.Tricuspid Valve: The right | | ventricular systolic pressure (pulmonary artery systolic pressure), as measured by | | Doppler, is 71.52mmHg.Pulmonic Valve: Pulmonic valve appears structurally | | normal.Pericardium: There is no pericardial effusion.IVC/Hepatic Veins: The IVC is | | normal size (1.5-2.5cm) and collapses >50% with sniff, consistent with central venous | | pressures of 5-10mmHg.Mass: No mass visualizedThrombus: No clot visualizedSeptum: No ASD | | observed.Septum: No VSD observed. MEASUREMENTS Ao Diam: 3.26 cmIVC: | | 2.56 cmLA Diam: 4.69 cmLA Major: 6.08 cmEDV(Teich): 77.27 mlIVSd: 1.79 cmLVIDd: | | 4.17 cmLVPWd: 1.88 cmLVOT Diam: 2.11 cm%FS: 35.88 %EF(Teich): 65.86 | | %ESV(Teich): 26.37 mlIVSs: 1.85 cmLVIDs: 2.67 cmLVPWs: 1.85 cmSV(Teich): 50.90 | | mlRA Major: 6.79 cmRVIDd: 3.70 cmLVEF MOD A2C: 57.46 %SV MOD A2C: 35.32 mlLVEF | | MOD A4C: 70.48 %SV MOD A4C: 41.45 mlEF Biplane: 64.27 %LVEDV MOD BP: 63.06 | | mlLVESV MOD BP: 22.52 mlLVEDV MOD A2C: 61.47 mlLVLd A2C: 6.66 cmLVEDV MOD A4C: | | 58.81 mlLVLd A4C: 6.51 cmLVESV MOD A2C: 26.15 mlLVLs A2C: 5.54 cmLVESV MOD A4C: | | 17.35 mlLVLs A4C: 4.92 cmLAESV(A-L): 95.99 mlLAESV Index (A-L): 45.71 ml/m2LAAs | | A2C: 23.14 [id number] A-L A2C: 88.57 mlLALs A2C: 5.13 cmLAAs A4C: 25.08 [id number] | | A-L A4C: 81.76 mlLALs A4C: 6.53 cmAo Diam: 3.31 cmAV Cusp: 2.23 cmLA Diam: | | 6.38 cmLA/Ao: 1.92%FS: 43.32 %EDV(Teich): 91.75 mlEF(Teich): 74.64 %ESV(Teich): | | 23.26 mlIVSd: 1.61 cmIVSs: 1.51 cmLVIDd: 4.48 cmLVIDs: 2.54 cmLVPWd: 1.37 | | cmLVPWs: 1.51 cmSV(Teich): 68.48 mlIVC diameter: 2.44 cmIVC collapse: 1.01 cmIVC | | % collapse: 56.17 %HR: 99.27 BPMAV maxP.88 mmHgAV meanP.83 mmHgAV | | Vmax: 2.22 m/Tre Vmean: 1.43 m/Tre VTI: 34.33 cmAVA Vmax: 2.00 cm2AVA (VTI): | | 2.01 [id number] Dopp: 3.28 l/[id number] Dopp: 6.90 l/minHR: 99.58 BPMLVOT maxPG: | | 6.49 mmHgLVOT meanP.84 mmHgLVSI Dopp: 33.02 ml/m2LVSV Dopp: 69.35 mlLVOT Vmax: | | 1.27 m/sLVOT Vmean: 0.92 m/sLVOT VTI: 19.77 cmMCO: 255.08 msMV A Micheal: 0.60 | | m/sMV DecT: 150.76 msMV E Micheal: 1.52 m/sMV E/A Ratio: 2.53MV PHT: 44.29 msMVA By | | PHT: 4.96 cm2MV A Dur: 121.99 msMV maxP.18 mmHgMV meanP.04 mmHgMV Vmax: | | 1.51 m/sMV Vmean: 0.75 m/sMV VTI: 26.86 cmMVA (VTI): 2.58 js5Grocja e': 0.07 | | m/sSeptal E/e': 21.69Lateral e': 0.06 m/sLateral E/e': 21.93P Vein A: 0.29 m/sP | | Vein A Dur: 73.93 msP Vein D: 0.84 m/sP Vein S/D Ratio: 0.81P Vein S: 0.69 | | m/sHR: 92.21 BPMPV maxP.26 mmHgPV meanP.68 mmHgPV Vmax: 0.90 m/sPV | | Vmean: 0.59 m/sPV VTI: 14.52 cmRAP: 5 mmHgRVSP: 71.52 mmHgTR maxP.52 | | mmHgTR Vmax: 4.07 m/sTV A Micheal: 0.35 m/sTV Dec Elbert: 3.33 m/s2TV Dec Time: | | 188.76 msTV E Micheal: 0.62 m/sTV E/A Ratio: 1.78 Military Professional: SHEAuthenticated by: Izabel | | Davon MDReport Date/Time: 10-10-2010 13:11:33 | | | |Ao Diam: 3.26 cm | |IVC: 2.56 cm | |LA Diam: 4.69 cm | |LA Major: 6.08 cm | |EDV(Teich): 77.27 ml | |IVSd: 1.79 cm | |LVIDd: 4.17 cm | |LVPWd: 1.88 cm | |LVOT Diam: 2.11 cm | |%FS: 35.88 % | |EF(Teich): 65.86 % | |ESV(Teich): 26.37 ml | |IVSs: 1.85 cm | |LVIDs: 2.67 cm | |LVPWs: 1.85 cm | |SV(Teich): 50.90 ml | |RA Major: 6.79 cm | |RVIDd: 3.70 cm | |LVEF MOD A2C: 57.46 % | |SV MOD A2C: 35.32 ml | |LVEF MOD A4C: 70.48 % | |SV MOD A4C: 41.45 ml | |EF Biplane: 64.27 % | |LVEDV MOD BP: 63.06 ml | |LVESV MOD BP: 22.52 ml | |LVEDV MOD A2C: 61.47 ml | |LVLd A2C: 6.66 cm | |LVEDV MOD A4C: 58.81 ml | |LVLd A4C: 6.51 cm | |LVESV MOD A2C: 26.15 ml | |LVLs A2C: 5.54 cm | |LVESV MOD A4C: 17.35 ml | |LVLs A4C: 4.92 cm | |LAESV(A-L): 95.99 ml | |LAESV Index (A-L): 45.71 ml/m2 | |LAAs A2C: 23.14 cm2 | |LAESV A-L A2C: 88.57 ml | |LALs A2C: 5.13 cm | |LAAs A4C: 25.08 cm2 | |LAESV A-L A4C: 81.76 ml | |LALs A4C: 6.53 cm | |Ao Diam: 3.31 cm | |AV Cusp: 2.23 cm | |LA Diam: 6.38 cm | |LA/Ao: 1.92 | |%FS: 43.32 % | |EDV(Teich): 91.75 ml | |EF(Teich): 74.64 % | |ESV(Teich): 23.26 ml | |IVSd: 1.61 cm | |IVSs: 1.51 cm | |LVIDd: 4.48 cm | |LVIDs: 2.54 cm | |LVPWd: 1.37 cm | |LVPWs: 1.51 cm | |SV(Teich): 68.48 ml | |IVC diameter: 2.44 cm | |IVC collapse: 1.01 cm | |IVC % collapse: 56.17 % | |HR: 99.27 BPM | |AV maxP.88 mmHg | |AV meanP.83 mmHg | |AV Vmax: 2.22 m/s | |AV Vmean: 1.43 m/s | |AV VTI: 34.33 cm | |BANG Vmax: 2.00 cm2 | |BANG (VTI): 2.01 cm2 | |LVCI Dopp: 3.28 l/minm2 | |LVCO Dopp: 6.90 l/min | |HR: 99.58 BPM | |LVOT maxP.49 mmHg | |LVOT meanP.84 mmHg | |LVSI Dopp: 33.02 ml/m2 | |LVSV Dopp: 69.35 ml | |LVOT Vmax: 1.27 m/s | |LVOT Vmean: 0.92 m/s | |LVOT VTI: 19.77 cm | |MCO: 255.08 ms | |MV A Micheal: 0.60 m/s | |MV DecT: 150.76 ms | |MV E Micheal: 1.52 m/s | |MV E/A Ratio: 2.53 | |MV PHT: 44.29 ms | |MVA By PHT: 4.96 cm2 | |MV A Dur: 121.99 ms | |MV maxP.18 mmHg | |MV meanP.04 mmHg | |MV Vmax: 1.51 m/s | |MV Vmean: 0.75 m/s | |MV VTI: 26.86 cm | |MVA (VTI): 2.58 cm2 | |Septal e': 0.07 m/s | |Septal E/e': 21.69 | |Lateral e': 0.06 m/s | |Lateral E/e': 21.93 | |P Vein A: 0.29 m/s | |P Vein A Dur: 73.93 ms | |P Vein D: 0.84 m/s | |P Vein S/D Ratio: 0.81 | |P Vein S: 0.69 m/s | |HR: 92.21 BPM | |PV maxP.26 mmHg | |PV meanP.68 mmHg | |PV Vmax: 0.90 m/s | |PV Vmean: 0.59 m/s | |PV VTI: 14.52 cm | |RAP: 5 mmHg | |RVSP: 71.52 mmHg | |TR maxP.52 mmHg | |TR Vmax: 4.07 m/s | |TV A Micheal: 0.35 m/s | |TV Dec Elbert: 3.33 m/s2 | |TV Dec Time: 188.76 ms | |TV E Micheal: 0.62 m/s | |TV E/A Ratio: 1.78 | | | |Military Professional: [email or web address] | |Authenticated by: Izabel Mays MD | |Report Date/Time: 10-10-2010 13:11:33 | + + US Renal Limited (10/10/2010 7:41 AM PDT) + + | Specimen | + + | | + + + + + | Narrative | Performed At | + + + | [facility] [address] Ph: | | | Patient Name: NIK MA Date of : | | | 1960 Medical Record: [id number] Account: [id number] | | | Exam Date/Time: 10/10/2010 06:00 Ordering | | | Physician: YULISSA ANDRE Order Detail: [id number] Exam Description: | | | US RETROPERITONEAL | | | RENAL | | | ULTRASOUND CLINICAL HISTORY: Acute renal failure. Assess for | | | hydronephrosis. TECHNIQUE: Real-time greene scale sonographic | | | evaluation of the kidneys performed. Static images obtained and | | | reviewed. COMPARISON: None FINDINGS: Right Kidney: 9.0 x | | | 4.2 x 4.4 cm. Hyperechoic cortical echotexture. No stone or | | | hydronephrosis. There is a 2.7 x 2.1 x 1.6 cm cyst at the lower pole | | | of the right kidney containing at least 2 thickened, irregular | | | septations and low level internal echoes. Two smaller slightly complex | | | appearing cysts are seen at the mid and upper poles of the right | | | kidney. Left Kidney: Measures 8.4 x 5.2 x 5.0 cm. Hyperechoic | | | echotexture. No stone, mass, or hydronephrosis. The urinary | | | bladder is decompressed containing Means balloon catheter. | | | IMPRESSION: 1. Hyperechoic kidneys consistent with intrinsic renal | | | disease. No evidence of obstructive nephropathy. 2. Complex right | | | renal cysts measuring up to 2.7 cm. With no prior studies available | | | to assess stability of these cysts, recommend 6 month followup renal | | | ultrasound. Alternatively noncontrast MRI may be helpful for further | | | cyst characterization. Read by Juan Diego Guy MD on | | | 10/10/2010 0832 | | + + + + + | Procedure Note | + + | Abhishek, Rad Conversion - 01/05/2019 5:11 PM PDT | | [facility] | | [facility] [address] | | | | | | Patient Name: NIK MA | | Date of : 1960 | | Medical Record: [id number] | | Account: [id number] | | | | | | Exam Date/Time: 10/10/2010 06:00 | | Ordering Physician: YULISSA ANDRE | | Order Detail: [id number] | | Exam Description: US RETROPERITONEAL | | | | RENAL ULTRASOUND | | | | CLINICAL HISTORY: Acute renal failure. Assess for hydronephrosis. | | | | TECHNIQUE: Real-time greene scale sonographic evaluation of the kidneys | | performed. Static images obtained and reviewed. | | | | COMPARISON: None | | | | FINDINGS: | | | | Right Kidney: 9.0 x 4.2 x 4.4 cm. Hyperechoic cortical echotexture. No | | stone or hydronephrosis. There is a 2.7 x 2.1 x 1.6 cm cyst at the lower | | pole of the right kidney containing at least 2 thickened, irregular | | septations and low level internal echoes. Two smaller slightly complex | | appearing cysts are seen at the mid and upper poles of the right kidney. | | | | Left Kidney: Measures 8.4 x 5.2 x 5.0 cm. Hyperechoic echotexture. No | | stone, mass, or hydronephrosis. | | | | The urinary bladder is decompressed containing Means balloon catheter. | | | | IMPRESSION: | | 1. Hyperechoic kidneys consistent with intrinsic renal disease. No | | evidence of obstructive nephropathy. | | 2. Complex right renal cysts measuring up to 2.7 cm. With no prior | | studies available to assess stability of these cysts, recommend 6 month | | followup renal ultrasound. Alternatively noncontrast MRI may be helpful for | | further cyst characterization. | | | | | | Read by Juan Diego Guy MD on 10/10/2010 0832 | | | | | | | | | + + CT Chest wo Contrast (10/10/2010 4:10 AM PDT) + + | Specimen | + + | | + + + + + | Narrative | Performed At | + + + | [facility] [address] Ph: | | | Patient Name: NIK MA Date of : | | | 1960 Medical Record: [id number] Account: [id number] | | | Exam Date/Time: 10/10/2010 03:02 Ordering | | | Physician: FARHAD OCHOA Order Detail: [id number] Exam Description: | | | CT CHEST | | | CHEST | | | CT WITHOUT CONTRAST CLINICAL HISTORY: Hemoptysis. TECHNIQUE: | | | Axial noncontrast images were obtained. FINDINGS: There are | | | bilateral lower lobe airspace opacities which may represent | | | pneumonia. Scattered small nodular densities are seen elsewhere in | | | both lungs, right greater than left. These could be inflammatory or | | | neoplastic. Small bilateral pleural effusions are seen. There are | | | mildly prominent mediastinal lymph nodes. These could be reactive or | | | metastatic. Heart size is borderline enlarged. There is suspected | | | anemia. Kidneys appear somewhat small. IMPRESSION: 1. | | | Bilateral lower lobe airspace opacities suspicious for pneumonia. | | | 2. Small nodular densities elsewhere in both lungs, more on the | | | right than the left, which could be inflammatory or neoplastic. 3. | | | Small pleural effusions. 4. Mild mediastinal adenopathy, reactive | | | versus metastatic. 5. Borderline cardiomegaly. Read by Yung | | Patito Covarrubias MD on 10/10/2010 0429 | | + + + + + | Procedure Note | + + | Manoj Weiss - 01/05/2019 5:11 PM PDT | | [facility] | | [facility] [address] | | | | | | Patient Name: NIK MA | | Date of : 1960 | | Medical Record: [id number] | | Account: [id number] | | | | | | Exam Date/Time: 10/10/2010 03:02 | | Ordering Physician: FARHAD OCHOA | | Order Detail: [id number] | | Exam Description: CT CHEST | | | | CHEST CT WITHOUT CONTRAST | | | | CLINICAL HISTORY: Hemoptysis. | | | | TECHNIQUE: Axial noncontrast images were obtained. | | | | FINDINGS: There are bilateral lower lobe airspace opacities which may | | represent pneumonia. Scattered small nodular densities are seen elsewhere | | in both lungs, right greater than left. These could be inflammatory or | | neoplastic. Small bilateral pleural effusions are seen. There are mildly | | prominent mediastinal lymph nodes. These could be reactive or metastatic. | | Heart size is borderline enlarged. There is suspected anemia. Kidneys | | appear somewhat small. | | | | IMPRESSION: | | 1. Bilateral lower lobe airspace opacities suspicious for pneumonia. | | 2. Small nodular densities elsewhere in both lungs, more on the right | | than the left, which could be inflammatory or neoplastic. | | 3. Small pleural effusions. | | 4. Mild mediastinal adenopathy, reactive versus metastatic. | | 5. Borderline cardiomegaly. | | | | | | Read by Yung Covarrubias MD on 10/10/2010 0429 | | | | | | | | | + + XR Chest 2 Vws (10/10/2010 2:34 AM PDT) + + | Specimen | + + | | + + + + + | Narrative | Performed At | + + + | [facility] [address] Ph: | | | Patient Name: NIK MA Date of : | | | 1960 Medical Record: [id number] Account: [id number] | | | Exam Date/Time: 10/10/2010 02:12 Ordering | | | Physician: FARHAD OCHOA Order Detail: [id number] Exam Description: | | | XR CHEST 2 VIEW | | | | | | NIK NOONANCOMB XR CHEST 2 VIEW HISTORY: 50 years. Male. | | | Shortness of breath. TECHNIQUE: Frontal and lateral views of the | | | chest were obtained. COMPARISON: None. FINDINGS: The heart | | | is enlarged. The pulmonary vascular congestion. There are patchy | | | airspace opacity seen within the bilateral lower lobes. No | | | pneumothorax. Mild degenerative change of the thoracic spine. | | | IMPRESSION: 1. Bilateral lower lobe airspace opacities that may be | | | on the basis of pneumonia or possible hemorrhage given patient's | | | history of hemoptysis. | | + + + + + | Procedure Note | + + | Manoj Weiss - 01/05/2019 5:11 PM PDT | | [facility] | | [facility] [address] | | | | | | Patient Name: NIK MA | | Date of : 1960 | | Medical Record: [id number] | | Account: [id number] | | | | | | Exam Date/Time: 10/10/2010 02:12 | | Ordering Physician: FARHAD OCHOA | | Order Detail: [id number] | | Exam Description: XR CHEST 2 VIEW | | | | NIK ALYX | | XR CHEST 2 VIEW | | | | HISTORY: | | 50 years. Male. Shortness of breath. | | | | TECHNIQUE: | | Frontal and lateral views of the chest were obtained. | | | | COMPARISON: | | None. | | | | FINDINGS: | | The heart is enlarged. The pulmonary vascular congestion. There are patchy | | airspace opacity seen within the bilateral lower lobes. No pneumothorax. | | Mild degenerative change of the thoracic spine. | | | | | | IMPRESSION: | | 1. Bilateral lower lobe airspace opacities that may be on the basis of | | pneumonia or possible hemorrhage given patient's history of hemoptysis. | | | | | + + documented in this encounter Visit Diagnoses + + | Diagnosis | + + | Unspecified essential hypertension | + + | Iron deficiency anemia, unspecified | + + | Gross hematuria | + + | Cyst of kidney, acquired Acquired cyst of kidney | + + | Other chronic pulmonary heart diseases | + + | Morbid obesity (HCC) Morbid obesity | + + | Personal history of noncompliance with medical treatment, presenting hazards to health | + + | Encounter for long-term (current) use of non-steroidal anti-inflammatories | + + | BMI 31.0-31.9,adult Body Mass Index 31.0-31.9, adult | + + | Renal failure, unspecified | + + | 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
--- OUTSIDE RECORDS SUMMARY | ~2019-05-09 | XMS | Encounter Summary ---
Demographics + + + | Address | [address] | | | [place] [address] | + + + | Home Phone | | + + + | Preferred Language | Unknown | + + + | Marital Status | Single | + + + | Hinduism Affiliation | Unknown | + + + | Race | Black or | + + + | Ethnic Group | Not or | + + + Author + + + | Author | [facility] | + + + | Organization | [facility] | + + + | Address | Unknown | + + + | Phone | Unavailable | + + + Support + + +---------+ + | Name | Relationship | Address | Phone | + + +---------+ + | Olesya Lamb | ECON | Unknown | | + + +---------+ + Care Team Providers + +------+ + | Care Candy Wrapping Machine Operator Name | Role | Phone [...] | | | | | Mirlande [place], | | | | | | [place] [address] | | | +--------+ + + + [...] + + + | [facility] - | [address] | [place] [address] | | | IMMUNOGENETICS/TRANS | [address] | | | | [facility] | | | | + + + + + documented in this encounter Visit Diagnoses Not on filedocumented in this encounter"
--- OUTSIDE RECORDS SUMMARY | ~2019-05-09 | XMS | Encounter Summary ---
Demographics + + + | Address | [address] | | | [place] [address] | + + + | Home Phone | | + + + | Preferred Language | Unknown | + + + | Marital Status | Unknown | + + + | Latter-Day Affiliation [...] Team Providers + +------+ + | Care Assistant Media Planner Name | Role | Phone | + +------+ + PCP | Unavailable | + +------+ + Encounter Details +--------+ + + + + | Date | Type | Department | Care Team | Description | +--------+ + + + + | 09/04/ | Orders Only | [facility] | Conversion | | | 2018 | | [facility] [place] | Transaction, | | | | | [address] | Provider Unknown | | | | | [address] [place], [place] | | | | | | [address] | (Fax) | | | | | [phone] | | | +--------+ + + + [...] 2020 | [facility] | [facility] [address] [facility] | | | | | [address] [place], [place] | | | | | | [address] | | | | | | | [...] - 1.030 | EXTERNAL | | | [place] | | | LAB | | + [...] | | | LAB | | | [facility] | | | | | + + [...]
--- OUTSIDE RECORDS SUMMARY | ~2019-05-09 | XMS | Encounter Summary ---
Demographics + + + | Address | [address] | | | [place] [address] | + + + | Home Phone [...] Team Providers + +------+ + | Care Cocktail Server Name | Role | Phone | + +------+ + | Oziel Michael MD | PCP | | + +------+ + Encounter Details +--------+ + + + + | Date | Type | Department | Care Team | Description | +--------+ + + + + | 07/20/ | Orders Only | [facility] | Conversion | | | 2019 | | NEPHROLOGY [place] | Transaction, | | | | | [address] | Provider Unknown | | | | | [address] [place], [place] | | | | | | [address] | (Fax) | | | | | [phone] | | | +--------+ + + + [...] | | | | | | [address] [place], [place] | | | | | | [address] | | | | | | | | +--------+---------+ + + + documented as of this encounter Procedures + +--------+ + + + | Procedure Name | Priori | Date/Time | Associated Diagnosis | Comments | | | ty | | | | + +--------+ + + + | CULTURE, URINE | Routin | 07/20/2018 | | Results for this | | | e | 10:12 AM | | procedure are in the | | | | PST | | results section. | + +--------+ + + + documented in this encounter Results Culture, Urine (07/20/2018 10:12 AM PST) + + | Specimen | [...]
--- OUTSIDE RECORDS SUMMARY | ~2019-05-09 | XMS | Encounter Summary ---
Demographics + + + | Address | [address] | | | [place] [address] | + + + | Home Phone [...] Team Providers + +------+ + | Care Nurse Leader Name | Role | Phone | + +------+ + | Oziel Michael MD | PCP | | + +------+ + Encounter Details +--------+ + + + + | Date | Type | Department | Care Team | Description | +--------+ + + + + | 01/04/ | Orders Only | [facility] | Alexx Gutierrez MD | | | 2017 | | NEPHROLOGY [place] | [address] [place] | | | | | [address] [place] | [address] [place], [place] | | | | | [address] [place], [place] | [address] | | | | | [address] | | | | | | [phone] | | | +--------+ + + + [...] 2019 | Visit | | [address] [facility] | | | | | | [address] [place] | | | | | | [address] | | | | | | | [...] | | | LAB | | | [place] | | | | | + + [...]
--- OUTSIDE RECORDS SUMMARY | ~2019-05-09 | XMS | Encounter Summary ---
Demographics + + + | Address | [address] | | | [place] [address] | + + + | Home Phone [...] Team Providers + +------+ + | Care Cartography Technician Name | Role | Phone | + +------+ + | Oziel Michael MD | PCP | | + +------+ + Encounter Details +--------+ + + + + | Date | Type | Department | Care Team | Description | +--------+ + + + + | 12/11/ | Orders Only | [facility] | Anthony Martinez, | | | 2018 | | NEPHROLOGY [place] | [employer] BUILD[employer] ENERGY ENGINEER [address] | | | | | [address] [facility] | [address] | | | | | [place] | [place] | | | | | [address] | [address] | | | | | [phone] | [phone] | | | | | | | [...] [place] | | | | | | [address] | | | | | | | | +--------+---------+ + + + documented as of this encounter Visit Diagnoses Not on filedocumented in this encounter"
--- OUTSIDE RECORDS SUMMARY | ~2019-05-09 | XMS | Encounter Summary ---
Demographics + + + | Address | [address] | | | [place] [address] | + + + | Home Phone | | + + + | Preferred Language | Unknown | + + + | Marital Status | Unknown | + + + | Mandaeism Affiliation | Unknown | + + + | Race | Unknown | + + + | Ethnic Group | Unknown | + + + Author + + + | Author | [facility] | | | and [place] | + + + | Organization | [facility] | | | [...] + +------+ + | Care Executive Director Global Brand Marketing Name | Role | Phone | + +------+ + | Oziel Michael MD | PCP | | + +------+ + Encounter Details +--------+ + + + + | Date | Type | Department | Care Team | Description | +--------+ + + + + | 06/08/ | Orders Only | [facility] | Alexx Gutierrez MD | | | 2018 | | NEPRHOLOGY [place] | [address] | | | | | [address] | [address] [place], [place] | | | | | [address] [place], [place] | [address] | | | | | [address] | | | | | | [phone] | | | +--------+ + + + [...] 2020 | Visit | | [address] [facility] | | | | | | [address] [place] | | | | | | [address] | | | | | | | | +--------+---------+ + + + documented as of this encounter Visit Diagnoses Not on filedocumented in this encounter"
--- OUTSIDE RECORDS SUMMARY | ~2019-05-09 | XMS | Encounter Summary ---
Demographics + + + | Address | [address] | | | [place] [address] | + + + | Home Phone | | + + + | Preferred Language | Unknown | + + + | Marital Status | Unknown | + + + | Jehovah'S Witness Affiliation | Unknown | + + + [...] +------+ + | Care Associate Professor Of Surgery Name | Role | Phone | + +------+ + | Oziel Michael MD | PCP | | + +------+ + Encounter Details +--------+ + + + + | Date | Type | Department | Care Team | Description | +--------+ + + + + | 01/04/ | Orders Only | [facility] | Alexx Gutierrez MD | | | 2016 | | NEPHROLOGY [place] | [address] [place] | | | | | [address] [place] | [address] [place], [place] | | | | | [address] [place], [place] | [address] | | | | | [address] | | | | | | [phone] | | | +--------+ + + + [...] 2019 | Visit | | [address] [facility] | | | | | | [address] [place] | | | | | | [address] | | | | | | | [...] | | | LAB | | | [place] | | | | | + + [...]
--- OUTSIDE RECORDS SUMMARY | ~2019-05-09 | XMS | Encounter Summary ---
Demographics + + + | Address | [address] | | | [place] [address] | + + + | Home Phone | | + + + | Preferred Language | Unknown | + + + | Marital Status | Unknown | + + + | Religion Affiliation | Unknown | + + + | Race | Unknown | + + + | Ethnic Group | Unknown | + + + Author + + + | Author | [facility] | | | and [place] | + + + | Organization | [facility] | | | [...] Team Providers + +------+ + | Care Cyber Security Consultant Name | Role | Phone | + +------+ + PCP | Unavailable | + +------+ + Encounter Details +--------+ + + + + | Date | Type | Department | Care Team | Description | +--------+ + + + + | 07/20/ | Orders Only | [facility] | Conversion | | | 2018 | | NEPHROLOGY [place] | Transaction, | | | | | [address] [place] | Provider Unknown | | | | | [address] [place], [place] | | | | | | [address] | (Fax) | | | | | [phone] | | | +--------+ + + + [...] Visit | | [address] [facility] | | | | | | [address] [place], [place] | | | | | | [address] | | | | | | | | +--------+---------+ + + + documented as of this encounter Procedures + +--------+ + + + | Procedure Name | Priori | Date/Time | Associated Diagnosis | Comments | | | ty | | | | + +--------+ + + + | EXTERNAL LAB: | Routin | 07/20/2018 | | Results for this | | TACROLIMUS LEVEL, | e | 10:12 AM | | procedure are in the | | LC-MS/MS | | PST | | results section. | + +--------+ + + + | EXTERNAL LAB: CBC | Routin | 07/20/2018 | | Results for this | | | e | 10:12 AM | | procedure are in the | | | | PST | | results section. | + +--------+ + + + | URINALYSIS, | Routin | 07/20/2018 | | Results for this | | MICROSCOPIC ONLY | e | 10:12 AM | | procedure are in the | | | | PST | | results section. | + +--------+ + + + | MAGNESIUM | Routin | 07/20/2018 | | Results for this | | | e | 10:12 AM | | procedure are in the | | | | PST | | results section. | + +--------+ + + + | RENAL FUNCTION PANEL | Routin | 07/20/2018 | | Results for this | | | e | 10:12 AM | | procedure are in the | | | | PST | | results section. | + +--------+ + + + documented in this encounter Results External Lab: Tacrolimus Level, LC-MS/MS (07/20/2018 10:12 AM PST) + +-------+ + + + | Component | Value | Ref Range | Performed | Pathologist | | | | | At | Signature | + +-------+ + + + | Tacrolimus | 5.7 | | EXTERNAL | | | Level [...] + +---------+ + + Urinalysis, Microscopic Only (07/20/2018 10:12 AM PST) + + + + + [...] + + + + | Specific | 1.013 | 1.005 - 1.030 | EXTERNAL | | | [place] | | | LAB | | + [...] + + + | Protein, | TraceComment: 100 | | EXTERNAL | | | Urine [...] + +---------+ + + External Lab: CBC (07/20/2018 10:12 AM PST) + + + + + [...] + + + + | Hgb | 12.6 (A) | 13.5 - 18.0 | EXTERNAL | | | | | g/dL | LAB | | + + + + + + | Hematocrit, | 39.5 (A) | 41 - 50 % | EXTERNAL | | | POC | | | LAB | | + + + + + + | MCV | 85.7 | 81 - 99 fL | EXTERNAL [...] + + + + | Platelet | 150 | 140 - 440 K/ L | EXTERNAL | | | Count | | | LAB | | | Plasma | | | | | + + + + + + | RDW-CV | 15.3 (A) | 10.5 - 15.0 % | [...] + + + | % Segmented | 54.5 | 39 - 80 % | EXTERNAL | | | | | | LAB | | | Neutrophils | | | | | + + + + + + | % | 31.3 | 24 - 44 % | EXTERNAL | | | Lymphocytes | | | LAB | | + + + + + + | % Monocytes | 12.9 (A) | 0 - 12 % | EXTERNAL | | | | | | LAB | | + + + + + + | % | 0.8 | 0 - 6 % | EXTERNAL | | | Eosinophils | | | LAB | | + + + + + + | % Basophils | 0.5 | 0 - 2 % | EXTERNAL [...] | | + +---------+ + + Magnesium (07/20/2018 10:12 AM PST) + +---------+ + + + [...] + +---------+ + + Renal Function Panel (07/20/2018 10:12 AM PST) + + + + + + | Component | Value | Ref Range | Performed | Pathologist | | | | | At | Signature | + + + + + + | Glucose, | 133 (A) | 70 - 100 mg/dL | EXTERNAL | | | Fasting | | | LAB | | + + + + + + | BUN | 22 | 6 - 23 mg/dL | EXTERNAL | | | | | | LAB | | + + + + + + | Creatinine | 1.45 (A) | 0.70 - 1.33 | EXTERNAL | | | | | mg/dL | LAB | | + + + + + + | PHOSPHORUS | 3.0 | 2.5 - 5.0 mg/dL | EXTERNAL | | | | | | LAB | | + + + + + + | Albumin | 3.1 (A) | 3.5 - 5.0 | EXTERNAL | | | | | | LAB | | + + + + + + | Na | 136 | 132 - 143 | EXTERNAL | | | | | mmol/L | LAB | | + + + + + + | K | 3.9 | 3.6 - 5.1 | EXTERNAL | [...] + + + | Anion Gap | 10.9 | 7 - 21 mmol/L | EXTERNAL | | | | | | LAB | | + + + + + + | eGFR if not | | | EXTERNAL | | | | | | LAB | | | CONGOLESE | | | | | + + + + + + | Phosphorus, | | | EXTERNAL | | | Inorganic | | | LAB | | + + + + + + | BUN/Creatin | 15.2 | 6.0 - 28.6 | EXTERNAL | | | ine Ratio | | | LAB | | + + + + + + | Calcium | 8.4 (A) | 8.5 - 10.3 | EXTERNAL | | | | | mg/dL | LAB | | + + + + + + | Estimated | 50 (A) | 60 - 140 mg/dL | [...]
--- OUTSIDE RECORDS SUMMARY | ~2019-05-09 | XMS | Encounter Summary ---
Demographics + + + | Address | [address] | | | [place] [address] | + + + | Home Phone | | + + + | Preferred Language | Unknown | + + + | Marital Status | Unknown | + + + | Evangelical Affiliation | Unknown | + + + | Race | Unknown | + + + | Ethnic Group | Unknown | + + + Author + + + | Author | [facility] | | | and [place] | + + + | Organization | [facility] | [...] Providers + +------+ + | Care Air Compressor Engineer Name | Role | Phone | + +------+ + PCP | Unavailable | + +------+ + Encounter Details +--------+ + + + + | Date | Type | Department | Care Team | Description | +--------+ + + + + | 07/06/ | Hospital | [facility] | Conversion | ESRD (end stage | | 2013 | Encounter | CENTER CV INTRA OP | Transaction, | renal disease) ([facility]) | | | | [address] | Provider Unknown | | | | | [place], [place] | [phone] | | | | | [address] | | | | | | [phone] | Alexx Gutierrez MD | | | | | | [address] [place] | | | | | | [address] [place], [place] | | | | | | [id number] | | | | | | | [...] documented as of this encounter Progress Notes Elio Puente, Provider Unknown - 07/06/2012 6:54 PM PSTFormatting of this note m ight be different from the original. Progress Notes by Kely Wilkerson at 07/06/121853 Author: Kely Wilkerson Service: (none) Author Type: Registered Nurse Filed: 07/06/121854 Date of Service: 07/06/121853 Status: Signed School Office Manager: Kely Wilkerson Pt tolerating juice well, vss, pt eager to go home, discharge instructions given both writt en and orally, will d/c to car by ambulation. docume nted in this encounter Plan of Treatment +--------+---------+ + + + | Date | Type | Specialty | Care Team | Description | +--------+---------+ + + + | 05/20/ | Office | Nephrology | Alexx Gutierrez MD | | | 2019 | Visit | | [address] [place] | | | | | | [address] [place] | | | | | | [address] | | | | | | | | +--------+---------+ + + + documented as of this encounter Procedures + +--------+ + + + | Procedure Name | Priori | Date/Time | Associated Diagnosis | Comments | | | ty | | | | + +--------+ + + + | IR INJECTION | Routin | 07/06/2012 | | Results for this | | DIALYSIS CIRCUIT W | e | 6:29 PM | | procedure are in the | | ANGIOPLASTY | | PST | | results section. | + +--------+ + + + | IR INJECTION | Routin | 07/06/2012 | | Results for this | | DIALYSIS CIRCUIT | e | 6:29 PM | | procedure are in the | | | | PST | | results section. | + +--------+ + + + documented in this encounter Results IR Inj Dialysis Circuit w Angioplasty (07/06/2012 6:29 PM PST) + + | Specimen | + + | | + + + + + | Narrative | Performed At | + + + | [facility] FISTULAGRAM 07/06/2012 6:28 PM | | | HISTORY: 52 years. Male. With chronic kidney disease stage V | | | presents with decreasing KT over V. EXAMINATION Left | | | brachial cephalic fistulogram and angioplasty of the multiple tandem | | | stenosis in left cephalic vein using 7 mm x 4 cm balloon catheter. | | | MEDICATIONS: Isovue-200 15 cc, Heparin 5000 units intravenous, | | | Versed 2 mg intravenous, fentanyl 50-mcg intravenous. | | | Intra-procedure sedation time 27 minutes. The radiation dose 37 | | | mGray, Fluoroscopy time 1.5 minutes. Appropriate physiologic | | | monitoring, maintenance of adequate conscious sedation and | | | independent correction supervision performed throughout the | | | [...] needle and | | | exchanged for 4-[place] micropuncture sheath. Initial fistula | | | pressure was obtained and fistulogram obtained from the left cubital | | | fossa to the right atrium. Given the tandem preocclusive stenosis | | | in proximal left cephalic vein and middle left cephalic vein (in-stent | | | restenosis), I decided to perform angioplasty of the venous lesions. | | | 4-[place] micropuncture sheath was exchanged for 6-[place] short | | | sheath over a 0.035, angled Glidewire. 7 mm x 4 cm balloon catheter | | | was advanced over the 0.035, angled Glidewire. Balloon was | | | positioned across stenosis in mid left cephalic vein and angioplasty | | | was performed. Subsequently, angioplasty the proximal left cephalic | | | venous stenosis was performed. During inflation of the balloon | | | across the venous anastomosis Reflux evaluation of [...] 1. Initial fistula | | | pressure 143/76 mm Hg, arterial pressure 153/86 mm Hg, final fistula | | | pressure 94/62 mm Hg. 2. Left brachia cephalic fistulogram shows | | | preocclusive in-stent restenosis and mid left cephalic vein and more | | | than 80% stenosis in proximal left cephalic vein. Rest of the | | | draining veins and central veins are widely patent. Arteriovenous | | | anastomosis widely patent. 3. Successful angioplasty of the | | | proximal and mid left cephalic venous stenosis without significant | | | residual anatomic stenosis. IMPRESSION: 1. Successful left | | | brachial cephalic fistulogram and angioplasty of the proximal and mid | | | cephalic venous stenosis with the good anatomic results and a moderate | | | hemodynamic results. | | + + + + + | Procedure Note | + + | Abhishek, Rad Conversion - 01/04/2019 11:57 PM PDT [facility] | | FISTULAGRAM07/06/2012 6:28 PM HISTORY:52 years. Male. With chronic kidney disease stage | | V presents with decreasing KT over V. EXAMINATION Left brachial cephalic fistulogram | | and angioplasty of the multiple tandem stenosis in left cephalic vein using 7 mm x 4 cm | | balloon catheter. MEDICATIONS: Isovue-200 15 cc, Heparin 5000 units intravenous, Versed | | 2 mg intravenous, fentanyl 50-mcg intravenous. Intra-procedure sedation time 27 | | minutes. The radiation dose 37 mGray, Fluoroscopy time 1.5 minutes. Appropriate | | physiologic monitoring, maintenance of adequate conscious sedation and independent | | correction supervision performed throughout the procedure. PROCEDURE: Informed [...] accessed using micropuncture needle and exchanged for 4-[place] | | micropuncture sheath. Initial fistula pressure was obtained and fistulogram obtained | | from the left cubital fossa to the right atrium. Given the tandem preocclusive stenosis | | in proximal left cephalic vein and middle left cephalic vein (in-stent restenosis), I | | decided to perform angioplasty of the venous lesions. 4-[place] micropuncture sheath was | | exchanged for 6-[place] short sheath over a 0.035, angled Glidewire. 7 mm x 4 cm | | balloon catheter was advanced over the 0.035, angled Glidewire. Balloon was positioned | | across stenosis in mid left cephalic vein and angioplasty was performed. Subsequently, | | angioplasty the proximal left cephalic venous stenosis was performed. During inflation | | of [...] the procedure well. FINDINGS1. Initial fistula pressure 143/76 mm Hg, arterial | | pressure 153/86 mm Hg, final fistula pressure 94/62 mm Hg.2. Left brachia cephalic | | fistulogram shows preocclusive in-stent restenosis and mid left cephalic vein and more | | than 80% stenosis in proximal left cephalic vein. Rest of the draining veins and | | central veins are widely patent. Arteriovenous anastomosis widely patent.3. Successful | | angioplasty of the proximal and mid left cephalic venous stenosis without significant | | residual anatomic stenosis. IMPRESSION:1. Successful left brachial cephalic fistulogram | | and angioplasty of the proximal and mid cephalic venous stenosis with the good anatomic | | results and a moderate hemodynamic results. | |IMPRESSION: | |1. Successful left brachial cephalic fistulogram and angioplasty of the proximal and mid c ephalic venous stenosis with the good anatomic results and a moderate hemodynamic results. | | | | | + + IR Inj Dialysis Circuit (07/06/2012 6:29 PM PST) + + | Specimen | + + | | + + + + + | Narrative | Performed At | + + + | [facility] 07/06/2012 6:28 PM | | | HISTORY: 52 years. Male. With chronic kidney disease stage V | | | presents with decreasing KT over V. EXAMINATION Left | | | brachial cephalic fistulogram and angioplasty of the multiple tandem | | | stenosis in left cephalic vein using 7 mm x 4 cm balloon catheter. | | | MEDICATIONS: Isovue-200 15 cc, Heparin 5000 units intravenous, | | | Versed 2 mg intravenous, fentanyl 50-mcg intravenous. | | | Intra-procedure sedation time 27 minutes. The radiation dose 37 | | | mGray, Fluoroscopy time 1.5 minutes. Appropriate physiologic | | | monitoring, maintenance of adequate conscious sedation and | | | independent correction supervision performed throughout the | | | [...] needle and | | | exchanged for 4-[place] micropuncture sheath. Initial fistula | | | pressure was obtained and fistulogram obtained from the left cubital | | | fossa to the right atrium. Given the tandem preocclusive stenosis | | | in proximal left cephalic vein and middle left cephalic vein (in-stent | | | restenosis), I decided to perform angioplasty of the venous lesions. | | | 4-[place] micropuncture sheath was exchanged for 6-[place] short | | | sheath over a 0.035, angled Glidewire. 7 mm x 4 cm balloon catheter | | | was advanced over the 0.035, angled Glidewire. Balloon was | | | positioned across stenosis in mid left cephalic vein and angioplasty | | | was performed. Subsequently, angioplasty the proximal left cephalic | | | venous stenosis was performed. During inflation of the balloon | | | across the venous anastomosis Reflux evaluation of [...] 1. Initial fistula | | | pressure 143/76 mm Hg, arterial pressure 153/86 mm Hg, final fistula | | | pressure 94/62 mm Hg. 2. Left brachia cephalic fistulogram shows | | | preocclusive in-stent restenosis and mid left cephalic vein and more | | | than 80% stenosis in proximal left cephalic vein. Rest of the | | | draining veins and central veins are widely patent. Arteriovenous | | | anastomosis widely patent. 3. Successful angioplasty of the | | | proximal and mid left cephalic venous stenosis without significant | | | residual anatomic stenosis. IMPRESSION: 1. Successful left | | | brachial cephalic fistulogram and angioplasty of the proximal and mid | | | cephalic venous stenosis with the good anatomic results and a moderate | | | hemodynamic results. | | + + + + + | Procedure Note | + + | Abhishek, Rad Conversion - 01/04/2019 11:57 PM PDT [facility] | | FISTULAGRAM07/06/2012 6:28 PM HISTORY:52 years. Male. With chronic kidney disease stage | | V presents with decreasing KT over V. EXAMINATION Left brachial cephalic fistulogram | | and angioplasty of the multiple tandem stenosis in left cephalic vein using 7 mm x 4 cm | | balloon catheter. MEDICATIONS: Isovue-200 15 cc, Heparin 5000 units intravenous, Versed | | 2 mg intravenous, fentanyl 50-mcg intravenous. Intra-procedure sedation time 27 | | minutes. The radiation dose 37 mGray, Fluoroscopy time 1.5 minutes. Appropriate | | physiologic monitoring, maintenance of adequate conscious sedation and independent | | correction supervision performed throughout the procedure. PROCEDURE: Informed [...] accessed using micropuncture needle and exchanged for 4-[place] | | micropuncture sheath. Initial fistula pressure was obtained and fistulogram obtained | | from the left cubital fossa to the right atrium. Given the tandem preocclusive stenosis | | in proximal left cephalic vein and middle left cephalic vein (in-stent restenosis), I | | decided to perform angioplasty of the venous lesions. 4-[place] micropuncture sheath was | | exchanged for 6-[place] short sheath over a 0.035, angled Glidewire. 7 mm x 4 cm | | balloon catheter was advanced over the 0.035, angled Glidewire. Balloon was positioned | | across stenosis in mid left cephalic vein and angioplasty was performed. Subsequently, | | angioplasty the proximal left cephalic venous stenosis was performed. During inflation | | of [...] the procedure well. FINDINGS1. Initial fistula pressure 143/76 mm Hg, arterial | | pressure 153/86 mm Hg, final fistula pressure 94/62 mm Hg.2. Left brachia cephalic | | fistulogram shows preocclusive in-stent restenosis and mid left cephalic vein and more | | than 80% stenosis in proximal left cephalic vein. Rest of the draining veins and | | central veins are widely patent. Arteriovenous anastomosis widely patent.3. Successful | | angioplasty of the proximal and mid left cephalic venous stenosis without significant | | residual anatomic stenosis. IMPRESSION:1. Successful left brachial cephalic fistulogram | | and angioplasty of the proximal and mid cephalic venous stenosis with the good anatomic | | results and a moderate hemodynamic results. | |IMPRESSION: | |1. Successful left brachial cephalic fistulogram and angioplasty of the proximal and mid c ephalic venous stenosis with the good anatomic results and a moderate hemodynamic results. | | | | | + + documented in this encounter Visit Diagnoses + + | Diagnosis | + + | ESRD (end stage renal disease) (HCC) End stage renal disease | + + documented in this encounter"
--- OUTSIDE RECORDS SUMMARY | ~2019-05-09 | XMS | Encounter Summary ---
Demographics + + + | Address | [address] | | | [place] [address] | + + + | Home Phone | | + + + | Preferred Language | Unknown | + + + | Marital Status | Unknown | + + + | Jew Affiliation | Unknown | + + + | Race | Unknown | + + + | Ethnic Group | Unknown | + + + Author + + + | Author | [facility] | | | and [place] | + + + | Organization | [facility] | | | [...] Team Providers + +------+ + | Care Recruitment Officer Name | Role | Phone | + +------+ + | Oziel Michael MD | PCP | | + +------+ + Encounter Details +--------+ + + + + | Date | Type | Department | Care Team | Description | +--------+ + + + + | 12/16/ | Orders Only | [facility] | Alexx Gutierrez MD | | | 2013 | | NEPHROLOGY [place] | [address] [place] | | | | | [address] [place] | [address] [place], [place] | | | | | [address] [place], [place] | [address] | | | | | [address] | | | | | | [phone] | | | +--------+ + + + [...] 2020 | Visit | | [address] [facility] | | | | | | [address] [place] | | | | | | [address] | | | | | | | | +--------+---------+ + + + documented as of this encounter Procedures + +--------+ + + + | Procedure Name | Priori | Date/Time | Associated Diagnosis | Comments | | | ty | | | | + +--------+ + + + | POTASSIUM | Routin | 12/16/2013 | | Results for this | | | e | 12:00 AM | | procedure are in the | | | | PDT | | results section. | + +--------+ + + + documented in this encounter Results Potassium (12/16/2013 12:00 AM PDT) + +-------+ + + + | Component | Value | Ref Range | Performed | Pathologist | | | | | At | Signature | + +-------+ + + + | K | 4.9 | 3.6 - 5.1 | EXTERNAL | | | | | mmol/L | LAB | | + +-------+ + [...]
--- OUTSIDE RECORDS SUMMARY | ~2019-05-09 | XMS | Encounter Summary ---
Demographics + + + | Address | [address] | | | [place] [address] | + + + | Home Phone | | + + + | Preferred Language | Unknown | + + + | Marital Status | Unknown | + + + | Hoahaoism Affiliation | Unknown | + + + | Race | Unknown | + + + | Ethnic Group | Unknown | + + + Author + + + | Author | [facility] | | | and [place] | + + + | Organization | [facility] | | | [...] Team Providers + +------+ + | Care Beveling And Edging Machine Operator Name | Role | Phone | + +------+ + | Oziel Michael MD | PCP | | + +------+ + Encounter Details +--------+ + + + + | Date | Type | Department | Care Team | Description | +--------+ + + + + | 05/10/ | Orders Only | [facility] | Alexx Gutierrez MD | | | 2017 | | NEPRHOLOGY [place] | [address] | | | | | [address] | [address] [place], [place] | | | | | [address] [place], [place] | [address] | | | | | [address] | | | | | | [phone] | | | +--------+ + + + [...] 2019 | Visit | | [address] [facility] [place] | | | | | | [address] [place] | | | | | | [address] | | | | | | | [...]
--- OUTSIDE RECORDS SUMMARY | ~2019-05-09 | XMS | Encounter Summary ---
Demographics + + + | Address | [address] | | | [place] [address] | + + + | Home Phone [...] + + + | Author | [facility] | [...] Team Providers + +------+ + | Care Cytology Manager Name | Role | Phone | [...] | | | | | [address] N[place], | | | | | | [place] [address] | | | +--------+ + + + [...] [facility] - | [address] | [place] [address] | | | IMMUNOGENETICS/TRANS | [address] [...] [facility] - | [address] | [place] [address] | | | IMMUNOGENETICS/TRANS | [address] | | | | PLANT LABORATORY | | | | + + + + + documented in this encounter Visit Diagnoses Not on filedocumented in this encounter"
--- OUTSIDE RECORDS SUMMARY | ~2019-05-09 | XMS | Encounter Summary ---
Demographics + + + | Address | [address] | | | [place] [address] | + + + | Home Phone [...] Author + + + | Author | [facility] | + + + | Organization | [facility] | + + + | Address | Unknown | + + + | Phone | Unavailable | + + + Support + + +---------+ + | Name | Relationship | Address | Phone | + + +---------+ + | Olesya Lamb | ECON | Unknown | | + + +---------+ + Care Team Providers + +------+ + | Care Membership Manager Name | Role | Phone | [...] | | | | | [address] N[address] [place], | | | | | | [place] [address] | | | +--------+ + + + [...] [facility] - | [address] | [place] [address] | | | IMMUNOGENETICS/TRANS | [address] | | | | PLANT LABORATORY | | | | + + + + + documented in this encounter Visit Diagnoses Not on filedocumented in this encounter"
--- OUTSIDE RECORDS SUMMARY | ~2019-05-09 | XMS | Encounter Summary ---
Demographics + + + | Address | [address] | | | [place] [address] | + + + | Home Phone | | + + + | Preferred Language | Unknown | + + + | Marital Status | Unknown | + + + | Jewish Affiliation | Unknown | + + + | Race | Unknown | + + + | Ethnic Group | Unknown | + + + Author + + + | Author | [facility] | | | and [place] | + + + | Organization | [facility] | | | [...] Team Providers + +------+ + | Care Skin Pass Operator Name | Role | Phone | + +------+ + | Oziel Michael MD | PCP | | + +------+ + Encounter Details +--------+ + + + + | Date | Type | Department | Care Team | Description | +--------+ + + + + | 01/04/ | Orders Only | [facility] | Alexx Gutierrez MD | | | 2017 | | NEPHROLOGY [place] | [address] [place] | | | | | [address] [place] | [address] [place], [place] | | | | | [address] [place], [place] | [address] | | | | | [address] | | | | | | [phone] | | | +--------+ + + + [...] 2019 | Visit | | [address] [facility] | | | | | | 160 [place], [place] | | | | | | [address] | | | | | | | | +--------+---------+ + + + documented as of this encounter Procedures + +--------+ + + + | Procedure Name | Priori | Date/Time | Associated Diagnosis | Comments | | | ty | | | | + +--------+ + + + | PROTEIN/CREATININE | Routin | 01/04/2018 | | Results for this | | RATIO, URINE | e | 7:20 AM | | procedure are in the | | | | PDT | | results section. | + +--------+ + + + | CK TOTAL | Routin | 01/04/2018 | | Results for this | | | e | 7:20 AM | | procedure are in the | | | | PDT | | results section. | + +--------+ + + + documented in this encounter Results Protein/Creatinine Ratio, Urine (01/04/2018 7:20 AM PDT) + + + + + + | Component | Value | Ref Range | Performed | Pathologist | | | | | At | Signature | + + + + + + | Protein/Cre | 1220.2 (A) | 0 - 150 | EXTERNAL [...] | + +---------+ + + CK Total (01/04/2018 7:20 AM PDT) + +---------+ + + + | Component | Value | Ref Range | Performed | Pathologist | | | | | At | Signature | + +---------+ + + + | CK, Total | 339 (A) | 24 - 195 U/L | [...]
--- OUTSIDE RECORDS SUMMARY | ~2019-05-09 | XMS | Encounter Summary ---
Demographics + + + | Address | [address] | | | [place] [address] | + + + | Home Phone | | + + + | Preferred Language | Unknown | + + + | Marital Status | Unknown | + + + | Rastafari Affiliation | Unknown | + + + | Race | Unknown | + + + | Ethnic Group | Unknown | + + + Author + + + | Author | [facility] | | | and [place] | + + + | Organization | [facility] | | | [...] Team Providers + +------+ + | Care System Validation Engineer Name | Role | Phone | + +------+ + PCP | Unavailable | + +------+ + Encounter Details +--------+ + + + + | Date | Type | Department | Care Team | Description | +--------+ + + + + | 08/07/ | Orders Only | [facility] | Conversion | | | 2018 | | NEPHROLOGY [place] | Transaction, | | | | | [address] [place] | Provider Unknown | | | | | [address] [place], [place] | | | | | | [address] | (Fax) | | | | | [phone] | | | +--------+ + + + [...] 2019 | Visit | | [address] [facility] | | | | | | [address] [place], [place] | | | | | | [address] | | | | | | | [...] - 1.030 | EXTERNAL | | | [place] | | | LAB | | + [...]
--- OUTSIDE RECORDS SUMMARY | ~2019-05-09 | XMS | Encounter Summary ---
Demographics + + + | Address | [address] | | | [place] [address] | + + + | Home Phone | | + + + | Preferred Language | Unknown | + + + | Marital Status | Unknown | + + + | Church Affiliation | Unknown | + + + | Race | Unknown | + + + | Ethnic Group | Unknown | + + + Author + + + | Author | [facility] | | | and [place] | + + + | Organization | [facility] | | [...] Team Providers + +------+ + | Care Database Modeler Name | Role | Phone | + +------+ + | Oziel Michael MD | PCP | | + +------+ + Encounter Details +--------+ + + + + | Date | Type | Department | Care Team | Description | +--------+ + + + + | 10/13/ | Orders Only | [facility] | Alexx Gutierrez MD | | | 2017 | | NEPHROLOGY [place] | [address] [place] | | | | | [address] [place] | [address] [place], [place] | | | | | [address] [place], [place] | [address] | | | | | [address] | | | | | | [phone] | | | +--------+ + + + [...] | | | | | | [address] [place], [place] | | | | | | [address] | | | | | | | | +--------+---------+ + + + documented as of this encounter Procedures + +--------+ + + + | Procedure Name | Priori | Date/Time | Associated Diagnosis | Comments | | | ty | | | | + +--------+ + + + | EXTERNAL LAB: CBC | Routin | 10/13/2016 | | Results for this | | | e | 8:40 AM | | procedure are in the | | | | PDT | | results section. | + +--------+ + + + | CK TOTAL | Routin | 10/13/2016 | | Results for this | | | e | 8:40 AM | | procedure are in the | | | | PDT | | results section. | + +--------+ + + + | BASIC METABOLIC | Routin | 10/13/2016 | | Results for this | | PANEL | e | 8:40 AM | | procedure are in the | | | | PDT | | results section. | + +--------+ + + + documented in this encounter Results External Lab: CBC (10/13/2016 8:40 AM PDT) + + + + + + | Component | Value | Ref Range | Performed | Pathologist | | | | | At | Signature | + + + + + + | WBC | 4.9 | 4.5 - 11.0 10 | EXTERNAL | | | | | | LAB | | + + + + + + | RED CELL | 4.58 | 4.3 - 5.7 10 | EXTERNAL | | | COUNT | | | LAB | | + + + + + + | Hgb | 13.3 (A) | 13.5 - 18.0 | EXTERNAL | | | | | g/dL | LAB | | + + + + + + | Hematocrit, | 41.0 | 41 - 50 % | EXTERNAL | | | POC | | | LAB | | + + + + + + | MCV | 89.6 | 81 - 99 fL | EXTERNAL [...] + + + + | Platelet | 174 | 140 - 440 K/ L | EXTERNAL | | | Count | | | LAB | | | Plasma | | | | | + + + + + + | RDW-CV | 14.7 | 10.5 - 15.0 % | EXTERNAL [...] | + +---------+ + + CK Total (10/13/2016 8:40 AM PDT) + +-------+ + + + | Component | Value | Ref Range | Performed | Pathologist | | | | | At | Signature | + +-------+ + + + | CK, Total | 193 | 24 - 195 U/L | EXTERNAL [...] + +---------+ + + Basic Metabolic Panel (10/13/2016 8:40 AM PDT) + + + + + + | Component | Value | Ref Range | Performed | Pathologist | | | | | At | Signature | + + + + + + | Glucose, | 102 (A) | 70 - 100 mg/dL | [...] + + + + | BUN/Creatin | 15.3 | 6.0 - 28.6 | EXTERNAL | [...] + + + | Anion Gap | 15.4 | 7 - 21 mmol/L | EXTERNAL [...]
--- OUTSIDE RECORDS SUMMARY | ~2019-05-09 | XMS | Encounter Summary ---
Demographics + + + | Address | [address] | | | [place] [address] | + + + | Home Phone | | + + + | Preferred Language | Unknown | + + + | Marital Status | Unknown | + + + | Buddhist Affiliation | Unknown | + + + [...] Team Providers + +------+ + | Care Cleaner Name | Role | Phone | + +------+ + | Oziel Michael MD | PCP | | + +------+ + Encounter Details +--------+ + + + + | Date | Type | Department | Care Team | Description | +--------+ + + + + | 08/30/ | Orders Only | [facility] | Alexx Gutierrez MD | | | 2017 | | NEPRHOLOGY [place] | [address] | | | | | [address] | [address] [place], [place] | | | | | 101 [place], [place] | [address] | | | | | [address] | | | | | | [phone] | | | +--------+ + + + [...] 2020 | Visit | | [address] [facility] | | | | | | [address] [place] | | | | | | [address] | | | | | | | | +--------+---------+ + + + documented as of this encounter Visit Diagnoses Not on filedocumented in this encounter"
--- OUTSIDE RECORDS SUMMARY | ~2019-05-09 | XMS | Encounter Summary ---
Demographics + + + | Address | [address] | | | [place] [address] | + + + | Home Phone [...] Team Providers + +------+ + | Care Chute Feeder Name | Role | Phone | + [...] | | | | proteinuria | [place] [address] | | | | | | CKD | Phone: | | | | | | (chronic | [phone] | | | | | | kidney | Fax: | | | | | | disease), | [phone] | | | | | | stage [...] + | 02/25/ | Orders Only | [facility] | Alexx Gutierrez MD | Essential | | 2019 | | NEPHROLOGY [place] | [address] [place] | hypertension, benign | | | | [address] [place] | [address] [place], [place] | (Primary Dx); | | | | [address] [place], [place] | [address] | Persistent | | | | [address] | | proteinuria; CKD | | | | [phone] | | (chronic kidney | | | | | | disease), stage III | | | | | | ([facility]); 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 | | | | | | 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; | | | | | | Immunosuppression | | | | | | ([facility]); Kidney | | | | | | [...] 2019 | Visit | | [address] [facility] [address] | | | | | | 160 [place], [place] | | | | | | [address] | | | | | | | [...] III | | | | | | ([facility]) Kidney | | | | | | [...] III | | | | | | ([facility]) Kidney | | | | | | [...] III | | | | | | ([facility]) | | | | | | Immunosuppression | | | | | | ([facility]) Kidney | | | | | | [...] III | | | | | | ([facility]) Kidney | | | | | | [...] III | | | | | | ([facility]) Kidney | | | | | | [...] III | | | | | | ([facility]) 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 | | | | | | 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 | | | | | | Immunosuppression | | | | | | ([facility]) Kidney | | | | | | [...] III | | | | | | ([facility]) 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
--- OUTSIDE RECORDS SUMMARY | ~2019-05-09 | XMS | Encounter Summary ---
Demographics + + + | Address | [address] | | | [place] [address] | + + + | Home Phone | | + + + | Preferred Language | Unknown | + + + | Marital Status | Single | + + + | Mu-Ism Affiliation | Unknown | + + + | Race | Black or | + + + | Ethnic Group | Not or | + + + Author + + + | Author | [facility] | + + + [...] Team Providers + +------+ + | Care Relay Shop Tester Name | Role | Phone | + [...] | | | | | [address]e N[address] [place], | | | | | | [place] [address] | | | +--------+ + + + [...] [facility] - | [address] | [place] [address] | | | IMMUNOGENETICS/TRANS | [address] | | | | PLANT LABORATORY | | | | + + + + + documented in this encounter Visit Diagnoses Not on filedocumented in this encounter"
--- OUTSIDE RECORDS SUMMARY | ~2019-05-09 | XMS | Encounter Summary ---
Demographics + + + | Address | [address] | | | [place] [address] | + + + | Home Phone | | + + + | Preferred Language | Unknown | + + + | Marital Status | Unknown | + + + | Adventism Affiliation | Unknown | + + + [...] Team Providers + +------+ + | Care Video Production Assistant Name | Role | Phone | + +------+ + | Oziel Michael MD | PCP | | + +------+ + Encounter Details +--------+ + + + + | Date | Type | Department | Care Team | Description | +--------+ + + + + | 10/11/ | Orders Only | [facility] | Adrian Shaffer MD | | | 2010 | | [facility] | [address] [facility] | | | | | CLINICAL LABORATORY | [place], [place] | | | | | [address] | [address] | | | | | [place], [place] | [phone] | | | | | [address] | | | | | | [phone] | | | +--------+ + + + [...] | | | | | | [address] [place] | | | | | | [address] | | | | | | | | +--------+---------+ + + + documented as of this encounter Procedures + +--------+ + + + | Procedure Name | Priori | Date/Time | Associated Diagnosis | Comments | | | ty | | | | + +--------+ + + + | SERGIO PREP | Routin | 10/11/2010 | | Results for this | | | e | 5:13 PM | | procedure are in the | | | | PDT | | results section. | + +--------+ + + + documented in this encounter Results SERGIO Prep (10/11/2010 5:13 PM PDT) + + | Specimen | + + | | + + + + + | Narrative | Performed At | + + + | Specimen Description RIGHT LEG | EXTERNAL LAB | | Testing performed at [facility];[id number] | | | Sean Lopez;[place] [address] SERGIO PREP | | | NO YEAST OR FUNGAL ELEMENTS SEEN | | | Testing performed at [facility], [address] [place] [address] | | | [place], [place] [address] REPORT STATUS | | | 10/12/2010 FINAL | | + + + + +---------+ + + | Performing | Address | City/State/Zipcode | Phone Number | | Organization | | | | + +---------+ + + | EXTERNAL LAB | | | | + +---------+ + + documented in this encounter Visit Diagnoses Not on filedocumented in this encounter"
--- OUTSIDE RECORDS SUMMARY | ~2019-05-09 | XMS | Encounter Summary ---
Demographics + + + | Address | [address] | | | [place] [address] | + + + | Home Phone [...] Team Providers + +------+ + | Care Sorter/Assay Tech Name | Role | Phone | + [...] | | | | [place] | [phone] | | | | | [address] | | | | | | [phone] | | | +--------+ + + + [...] 2020 | Visit | | [address] [facility] | | | | | | [address] [place] | | | | | | [address] | | | | | | | | +--------+---------+ + + + documented as of this encounter Visit Diagnoses Not on filedocumented in this encounter"
--- OUTSIDE RECORDS SUMMARY | ~2019-05-09 | XMS | Encounter Summary ---
Demographics + + + | Address | [address] | | | [place] [address] | + + + | Home Phone [...] Author + + + | Author | [facility] | + + + | Organization | [facility] | [...] Providers + +------+ + | Care Supervisor Reactor Fueling Name | Role | Phone | + [...] | | | | | [address]e Nunes [place], | | | | | | [place] [address] | | | +--------+ + + + [...] [facility] - | [address] | [place] [address] | | | IMMUNOGENETICS/TRANS | [address] [...] [facility] - | [address] | [place] [address] | | | IMMUNOGENETICS/TRANS | [address] | | | | PLANT LABORATORY | | | | + + + + + documented in this encounter Visit Diagnoses Not on filedocumented in this encounter"
--- OUTSIDE RECORDS SUMMARY | ~2019-05-09 | XMS | Encounter Summary ---
Demographics + + + | Address | [address] | | | [place] [address] | + + + | Home Phone | | + + + | Preferred Language | Unknown | + + + | Marital Status | Unknown | + + + | Anabaptism Affiliation | Unknown | + + + | Race | Unknown | + + + | Ethnic Group | Unknown | + + + Author + + + | Author | [facility] | | | and [place] | + + + | Organization | [facility] | | | [...] Team Providers + +------+ + | Care Estate Conservator Name | Role | Phone | + [...] | | | | [place] | [phone] | | | | | [address] | | | | | | [phone] | | | +--------+ + + + [...] 2020 | Visit | | [address] [facility] | | | | | | [address] [place] | | | | | | [address] | | | | | | | | +--------+---------+ + + + documented as of this encounter Visit Diagnoses Not on filedocumented in this encounter"
--- OUTSIDE RECORDS SUMMARY | ~2019-05-09 | XMS | Encounter Summary ---
Demographics + + + | Address | [address] | | | [place] [address] | + + + | Home Phone [...] Team Providers + +------+ + | Care Client Project Coordinator Name | Role | Phone | + +------+ + | Oziel Michael MD | PCP | | + +------+ + Encounter Details +--------+ + + + + | Date | Type | Department | Care Team | Description | +--------+ + + + + | 10/11/ | Orders Only | [facility] | Adrian Shaffer MD | | | 2010 | | [facility] | [address] [facility] | | | | | CLINICAL LABORATORY | [place], [place] | | | | | [address] | [address] | | | | | [place], [place] | [phone] | | | | | [address] | | | | | | [phone] | | | +--------+ + + + [...] | | | | | | [address] [place], [place] | | | | | | [address] | | | | | | | [...] RECOMMENDED. Testing | | | performed at [facility], [address] [place] [address] | | + + + + +---------+ + + | Performing | Address | City/State/Zipcode | Phone Number | | Organization | | | | + +---------+ + + | EXTERNAL LAB | | | | + +---------+ + + documented in this encounter Visit Diagnoses Not on filedocumented in this encounter"
--- OUTSIDE RECORDS SUMMARY | ~2019-05-09 | XMS | Encounter Summary ---
Demographics + + + | Address | [address] | | | [place] [address] | + + + | Home Phone | | + + + | Preferred Language | Unknown | + + + | Marital Status | Single | + + + | Jain Affiliation | Unknown | + + + | Race | Black or | + + + | Ethnic Group | Not or | + + + Author + + + | Author | [facility] | + + [...] Team Providers + +------+ + | Care Hand Endband Cutter Name | Role | Phone | + +------+ + | Oziel Michael MD | PCP | | + +------+ + Encounter Details +--------+ + + + + | Date | Type | Department | Care Team | Description | +--------+ + + + + | 09/17/ | Lab | LAB IMMUNOGENETIC | | | | 2014 | Requisition | AND TRANSPLANT LAB | | | | | | [address] | | | | | | [address] [place], | | | | | | [place] [address] | | | +--------+ + + + [...] FLOW HLA AB PRA | Routin | 09/17/2014 | | | | SCREEN I/II | e | 11:35 AM | | | | | | PDT | | | + +--------+ + + + documented in this encounter Results LIT FLOW HLA AB PRA SCREEN I/II (09/17/2014 11:35 AM PDT) + + | Specimen | + + | Blood - Blood | + + + + + + + | Performing | Address | City/State/Zipcode | Phone Number | | Organization | | | | + + + + + | [facility] - | [address] | [place] [address] | | | IMMUNOGENETICS/TRANS | [address] | | | | PLANT LABORATORY | | | | + + + + + documented in this encounter Visit Diagnoses Not on filedocumented in this encounter"
--- OUTSIDE RECORDS SUMMARY | ~2019-05-09 | XMS | Encounter Summary ---
Demographics + + + | Address | [address] | | | [place] [address] | + + + | Home Phone | | + + + | Preferred Language | Unknown | + + + | Marital Status | Unknown | + + + | Muslim Affiliation | Unknown | + + + | Race | Unknown | + + + | Ethnic Group | Unknown | + + + Author + + + | Author | [facility] | | | and [place] | + + + | Organization | [facility] | | | [...] Providers + +------+ + | Care Client Resource Specialist Name | Role | Phone | + +------+ + PCP | Unavailable | + +------+ + Encounter Details +--------+ + + + + | Date | Type | Department | Care Team | Description | +--------+ + + + + | 07/20/ | Orders Only | [facility] | Conversion | | | 2018 | | NEPHROLOGY [place] | Transaction, | | | | | [address] | Provider Unknown | | | | | [address] [place], [place] | | | | | | [address] | (Fax) | | | | | [phone] | | | +--------+ + + + [...] 2020 | Visit | | [address] [facility] | | | | | | [address] [place], [place] | | | | | | [address] | | | | | | | [...] - 1.030 | EXTERNAL | | | [place] | | | LAB | | + [...] | | | LAB | | | [place] | | | | | + + [...]
--- OUTSIDE RECORDS SUMMARY | ~2019-05-09 | XMS | Encounter Summary ---
Demographics + + + | Address | [address] | | | [place] [address] | + + + | Home Phone | | + + + | Preferred Language | Unknown | + + + | Marital Status | Unknown | + + + | Congregational Affiliation | Unknown | + + + | Race | Unknown | + + + | Ethnic Group | Unknown | + + + Author + + + | Author | [facility] | | | and [place] | + + + | Organization | [facility] | | | and [...] Team Providers + +------+ + | Care Artificial Flowers Dyer Name | Role | Phone | + +------+ + | Oziel Michael MD | PCP | | + +------+ + Encounter Details +--------+ + + + + | Date | Type | Department | Care Team | Description | +--------+ + + + + | 06/27/ | Orders Only | [facility] | Conversion | | | 2016 | | NEPHROLOGY [place] | Transaction, | | | | | [address] | Provider Unknown | | | | | [address] [place], [place] | | | | | | [address] | (Fax) | | | | | [phone] | | | +--------+ + + + [...] 2019 | Visit | | [address] [facility] | | | | | | [address] [place], [place] | | | | | | [address] | | | | | | | [...] - 1.030 | EXTERNAL | | | [place] | | | LAB | | + [...] | | | LAB | | | [place] | | | | | + + [...]
--- OUTSIDE RECORDS SUMMARY | ~2019-05-09 | XMS | Encounter Summary ---
Demographics + + + | Address | [address] | | | [place] [address] | + + + | Home Phone [...] + + + | Author | [facility] | | | and [place] | + + + | Organization | [facility] | | [...] Team Providers + +------+ + | Care Trucker Hand Name | Role | Phone | + +------+ + | Oziel Michael MD | PCP | | + +------+ + Encounter Details +--------+ + + + + | Date | Type | Department | Care Team | Description | +--------+ + + + + | 10/11/ | Orders Only | [facility] | Adrian Shaffer MD | | | 2010 | | [facility] | [address] [facility] | | | | | CLINICAL LABORATORY | [place], [place] | | | | | [address] | [address] | | | | | [place], [place] | [phone] | | | | | [address] | | | | | | [phone] | | | +--------+ + + + [...] 2019 | Visit | | [address] [facility] | | | | | | [address] [place] | | | | | | [address] | | | | | | | [...] Results for this | | | | 5:50 PM | | procedure are in the | | | | PDT | | results section. | + +--------+ + + + documented in this encounter Results Culture, Blood (10/11/2010 5:50 PM PDT) + + | Specimen | + + | | + + + + + | Narrative | Performed At | + + + | Specimen Description BLOOD, PERIPHERAL DRAW | EXTERNAL LAB | | Testing performed | | | at [facility];[address] [place] [address];[place] [address] SPECIAL REQUESTS | | | RAC | | | Testing performed at [facility];[address] [place], [place] [address] [place] [address] | | | CULTURE NO GROWTH IN 5 DAYS. | | | Testing | | | performed at [facility];[address] [place] [address] REPORT STATUS | | | 10/17/2010 FINAL [...]
--- OUTSIDE RECORDS SUMMARY | ~2019-05-09 | XMS | Encounter Summary ---
Demographics + + + | Address | [address] | | | [place] [address] | + + + | Home Phone | | + + + | Preferred Language | Unknown | + + + | Marital Status | Single | + + + | Islam Affiliation | Unknown | + + + | Race | Black or | + + + | Ethnic Group | Not or | + + + Author + + + | Author | [facility] | + + + | Organization | [facility] | + + + | Address | Unknown | + + + | Phone | Unavailable | + + + Support + + +---------+ + | Name | Relationship | Address | Phone | + + +---------+ + | Olesya Lamb | ECON | Unknown | | + + +---------+ + Care Team Providers + +------+ + | Care Behavioral Psychologist Name | Role | Phone | + [...] | | | | | [address] [place], | | | | | | [place] [address] | | | +--------+ + + + [...] [facility] - | [address] | [place] [address] | | | IMMUNOGENETICS/TRANS | [address] | | | | PLANT LABORATORY | | | | + + + + + documented in this encounter Visit Diagnoses Not on filedocumented in this encounter"
--- OUTSIDE RECORDS SUMMARY | ~2019-05-09 | XMS | Encounter Summary ---
Demographics + + + | Address | [address] | | | [place] [address] | + + + | Home Phone | | + + + | Preferred Language | Unknown | + + + | Marital Status | Unknown | + + + | Adventist Affiliation [...] Team Providers + +------+ + | Care Quill Winder Name | Role | Phone | + +------+ + PCP | Unavailable | + +------+ + Encounter Details +--------+ + + + + | Date | Type | Department | Care Team | Description | +--------+ + + + + | 06/01/ | Orders Only | [facility] | Conversion | | | 2018 | | NEPHROLOGY [place] | Transaction, | | | | | [address] | Provider Unknown | | | | | [address] [place], [place] | | | | | | [address] | (Fax) | | | | | [phone] | | | +--------+ + + + [...] 2020 | Visit | | [address] [facility] | | | | | | [address] [place], [place] | | | | | | [address] | | | | | | | [...] - 1.030 | EXTERNAL | | | [place] | | | LAB | | + [...] | | | LAB | | | [place] | | | | | + + [...]
--- OUTSIDE RECORDS SUMMARY | ~2019-05-09 | XMS | Encounter Summary ---
Demographics + + + | Address | [address] | | | [place] [address] | + + + | Home Phone [...] Team Providers + +------+ + | Care Mechanic Welder Name | Role | Phone | [...] | | | | [place] | [phone] | | | | | [address] | | | | | | [phone] | | | +--------+ + + + [...] 2020 | Visit | | [address] [facility] | | | | | | [address] [place] | | | | | | [address] | | | | | | | | +--------+---------+ + + + documented as of this encounter Visit Diagnoses Not on filedocumented in this encounter"
--- OUTSIDE RECORDS SUMMARY | ~2019-05-09 | XMS | Encounter Summary ---
Demographics + + + | Address | [address] | | | [place] [address] | + + + | Home Phone [...] + + | Author | [facility] | + + + | Organization | [facility] | + + + | Address | Unknown | + + + | Phone | Unavailable | + + + Support + + +---------+ + | Name | Relationship | Address | Phone | + + +---------+ + | Olesya Lamb | ECON | Unknown | | + + +---------+ + Care Team Providers + +------+ + | Care Account Development Specialist Name | Role | Phone | [...] | | | | | [address] [place], | | | | | | [place] [address] | | | +--------+ + + + [...] + + + | [facility] - | [address] | [place] [address] | | | IMMUNOGENETICS/TRANS | [address] | | | | PLANT LABORATORY | | | | + + + + + documented in this encounter Visit Diagnoses Not on filedocumented in this encounter"
--- OUTSIDE RECORDS SUMMARY | ~2019-05-09 | XMS | Encounter Summary ---
Demographics + + + | Address | [address] | | | [place] [address] | + + + | Home Phone [...] + + + | Author | [facility] | + + + [...] Team Providers + +------+ + | Care Biodiesel Plant Manager Name | Role | Phone | + +------+ + | Oziel Michael MD | PCP | | + +------+ + Encounter Details +--------+ + + + + | Date | Type | Department | Care Team | Description | +--------+ + + + + | 10/27/ | Lab | LAB IMMUNOGENETIC | | | | 2014 | Requisition | AND TRANSPLANT LAB | | | | | | [address] | | | | | | [address] [place], | | | | | | [place] [address] | | | +--------+ + + + [...] FLOW HLA AB PRA | Routin | 10/27/2014 | | | | SCREEN I/II | e | 11:15 AM | | | | | | PDT | | | + +--------+ + + + documented in this encounter Results LIT FLOW HLA AB PRA SCREEN I/II (10/27/2014 11:15 AM PDT) + + | Specimen | + + | Blood - Blood | + + + + + + + | Performing | Address | City/State/Zipcode | Phone Number | | Organization | | | | + + + + + | [facility] - | [address] | [place] [address] | | | IMMUNOGENETICS/TRANS | [address] | | | | PLANT LABORATORY | | | | + + + + + documented in this encounter Visit Diagnoses Not on filedocumented in this encounter"
--- OUTSIDE RECORDS SUMMARY | ~2019-05-09 | XMS | Encounter Summary ---
Demographics + + + | Address | [address] | | | [place] [address] | + + + | Home Phone [...] + + | Author | [facility] | + + + | Organization | [facility] | + + + | Address | Unknown | + + + | Phone | Unavailable | + + + Support + + +---------+ + | Name | Relationship | Address | Phone | + + +---------+ + | Olesya Lamb | ECON | Unknown | | + + +---------+ + Care Team Providers + +------+ + | Care Buttonhole Marker Name | Role | Phone | + +------+ + | Oziel Michael MD | PCP | | + +------+ + Encounter Details +--------+ + + + + | Date | Type | Department | Care Team | Description | +--------+ + + + + | 03/25/ | Ancillary | LAB IMMUNOGENETIC | | | | 2013 | Orders | AND TRANSPLANT LAB | | | | | | [address] | | | | | | [address] [place], | | | | | | [place] [address] | | | +--------+ + + + [...] FLOW HLA AB PRA | Routin | 03/25/2014 | | | | SCREEN I/II | e | 2:13 PM | | | | | | PST | | | + +--------+ + + + documented in this encounter Results LIT FLOW HLA AB PRA SCREEN I/II (03/25/2014 2:13 PM PST) + + | Specimen | + + | Blood - Blood | + + + + + + + | Performing | Address | City/State/Zipcode | Phone Number | | Organization | | | | + + + + + | [facility] - | [address] | [place] [address] | | | IMMUNOGENETICS/TRANS | [address] | | | | PLANT LABORATORY | | | | + + + + + documented in this encounter Visit Diagnoses Not on filedocumented in this encounter"
--- OUTSIDE RECORDS SUMMARY | ~2019-05-09 | XMS | Encounter Summary ---
Demographics + + + | Address | [address] | | | [place] [address] | + + + | Home Phone [...] Author + + + | Author | [facility] [employer] [facility] | + + + | Organization | [facility] | + + + | Address | Unknown | + + + | Phone | Unavailable | + + + Support + + +---------+ + | Name | Relationship | Address | Phone | + + +---------+ + | Olesya Lamb | ECON | Unknown | | + + +---------+ + Care Team Providers + +------+ + | Care Inclinometer Tester Name | Role | Phone | [...] | | | | | [address] [place], | | | | | | [place] [address] | | | +--------+ + + + [...] [facility] - | [address] | [place] [address] | | | IMMUNOGENETICS/TRANS | [address] [...] [facility] - | [address] | [place] [address] | | | IMMUNOGENETICS/TRANS | [address] | | | | PLANT LABORATORY | | | | + + + + + documented in this encounter Visit Diagnoses Not on filedocumented in this encounter"
--- OUTSIDE RECORDS SUMMARY | ~2019-05-09 | XMS | Encounter Summary ---
Demographics + + + | Address | [address] | | | [place] [address] | + + + | Home Phone [...] Team Providers + +------+ + | Care Tire Mold Tester Name | Role | Phone | [...] + + | 02/22/ | Telephone | [facility] | Radha Szymanski | Other (APPT/LABS | | 2019 | | NEPRHOLOGY [place] | V, Medical | REMINDER) | | | | [address] | Buckle Strap Puncher | | | | | [address] [place], [place] | | | | | | [address] | | | | | | [phone] | | | +--------+ + + + [...] 2020 | Visit | | [address] [facility] | | | | | | [address] [place] | | | | | | [address] | | | | | | | | +--------+---------+ + + + documented as of this encounter Visit Diagnoses Not on filedocumented in this encounter"
--- OUTSIDE RECORDS SUMMARY | ~2019-05-09 | XMS | Encounter Summary ---
Demographics + + + | Address | [address] | | | [place] [address] | + + + | Home Phone [...] Team Providers + +------+ + | Care Claim Clerk Name | Role | Phone | + +------+ + | Oziel iMchael MD | PCP | | + +------+ + Encounter Details +--------+ + + + + | Date | Type | Department | Care Team | Description | +--------+ + + + + | 10/11/ | Orders Only | [facility] | Adrian Shaffer MD | | | 2010 | | [facility] | [address] | | | | | CLINICAL LABORATORY | [place], [place] | | | | | [address] | [address] | | | | | [place], [place] | [phone] | | | | | [address] | | | | | | [phone] | | | +--------+ + + + [...] 2019 | Visit | | [address] [facility] | | | | | | [address] [place] | | | | | | [address] | | | | | | | | +--------+---------+ + + + documented as of this encounter Procedures + +--------+ + + + | Procedure Name | Priori | Date/Time | Associated Diagnosis | Comments | | | ty | | | | + +--------+ + + + | CULTURE, FUNGUS | Routin | 10/11/2010 | | Results for this | | | e | 5:13 PM | | procedure are in the | | | | PDT | | results section. | + +--------+ + + + documented in this encounter Results Culture, Fungus (10/11/2010 5:13 PM PDT) + + | Specimen | + + | | + + + + + | Narrative | Performed At | + + + | Specimen Description RIGHT LEG | EXTERNAL LAB | | Testing performed at [facility];[address] | | | [facility];[place] [address] CULTURE | | | NO FUNGUS ISOLATED | | | Testing performed at [facility], [address], | | | [place] [address] REPORT STATUS | | | 11/03/2010 FINAL | | + + + + +---------+ + + | Performing | Address | City/State/Zipcode | Phone Number | | Organization | | | | + +---------+ + + | EXTERNAL LAB | | | | + +---------+ + + documented in this encounter Visit Diagnoses Not on filedocumented in this encounter"
--- OUTSIDE RECORDS SUMMARY | ~2019-05-09 | XMS | Encounter Summary ---
Demographics + + + | Address | [address] | | | [place] [address] | + + + | Home Phone | | + + + | Preferred Language | Unknown | + + + | Marital Status | Unknown | + + + | Quaker Affiliation | Unknown | + + + | Race | Unknown | + + + | Ethnic Group | Unknown | + + + Author + + + | Author | [facility] | | | and [place] | + + + | Organization | [facility] | | [...] Team Providers + +------+ + | Care Hangersmith Name | Role | Phone | + +------+ + | Oziel Michael MD | PCP | | + +------+ + Encounter Details +--------+ + + + + | Date | Type | Department | Care Team | Description | +--------+ + + + + | 01/04/ | Orders Only | [facility] | Alexx Gutierrez MD | | | 2017 | | NEPRHOLOGY [place] | [address] | | | | | [address] | [address] [place], [place] | | | | | [address] [place], [place] | [address] | | | | | [address] | | | | | | [phone] | | | +--------+ + + + [...] | | | | | | [address] [place], [place] | | | | | | [address] | | | | | | | [...]
--- OUTSIDE RECORDS SUMMARY | ~2019-05-09 | XMS | Encounter Summary ---
Demographics + + + | Address | [address] | | | [place] [address] | + + + | Home Phone | | + + + | Preferred Language | Unknown | + + + | Marital Status | Single | + + + | Yarsanism Affiliation | Unknown | + + + | Race | Black or | + + + | Ethnic Group | Not or | + + + Author + + + | Author | [facility] | [...] Team Providers + +------+ + | Care Social Worker Delinquency Prevention Name | Role | Phone | + [...] | | | | | [address] [place], | | | | | | [place] [address] | | | +--------+ + + + [...] [facility] - | [address] | [place] [address] | | | IMMUNOGENETICS/TRANS | [address] [...] [facility] - | [address] | [place] [address] | | | IMMUNOGENETICS/TRANS | [address] | | | | PLANT LABORATORY | | | | + + + + + documented in this encounter Visit Diagnoses Not on filedocumented in this encounter"
--- OUTSIDE RECORDS SUMMARY | ~2019-05-09 | XMS | Encounter Summary ---
Demographics + + + | Address | [address] | | | [place] [address] | + + + | Home Phone | | + + + | Preferred Language | Unknown | + + + | Marital Status | Unknown | + + + | Evangelical Affiliation | Unknown | + + + | Race | Unknown | + + + | Ethnic Group | Unknown | + + + Author + + + | Author | [facility] | | | and [place] | + + + | Organization | [facility] | | | and [...] Team Providers + +------+ + | Care Monitoring Analyst Name | Role | Phone | + +------+ + PCP | Unavailable | + +------+ + Encounter Details +--------+ + + + + | Date | Type | Department | Care Team | Description | +--------+ + + + + | 12/05/ | Orders Only | [facility] | Conversion | | | 2018 | | NEPRHOLOGY [place] | Transaction, | | | | | [address] | Provider Unknown | | | | | [address] [place], [place] | | | | | | [address] | | | | | | [phone] | | | +--------+ + + + [...] | | | | | | [address] [place], [place] | | | | | | [address] | | | | | | | [...]
--- OUTSIDE RECORDS SUMMARY | ~2019-05-09 | XMS | Encounter Summary ---
Demographics + + + | Address | [address] | | | [place] [address] | + + + | Home Phone | | + + + | Preferred Language | Unknown | + + + | Marital Status | Unknown | + + + | Rastafari Affiliation | Unknown | + + + | Race | Unknown | + + + | Ethnic Group | Unknown | + + + Author + + + | Author | [facility] | | | and [place] | + + + | Organization | [facility] | [...] Team Providers + +------+ + | Care Correspondence School Instructor Name | Role | Phone | + +------+ + | Oziel Michael MD | PCP | | + +------+ + Encounter Details +--------+ + + + + | Date | Type | Department | Care Team | Description | +--------+ + + + + | 05/22/ | Orders Only | [facility] | Alexx Gutierrez MD | | | 2017 | | NEPRHOLOGY [place] | [address] | | | | | [address] | [address] [place], [place] | | | | | [address] [place], [place] | [address] | | | | | [address] | | | | | | [phone] | | | +--------+ + + + [...] 2020 | Visit | | [address] [facility] | | | | | | [address] [place] | | | | | | [address] | | | | | | | | +--------+---------+ + + + documented as of this encounter Visit Diagnoses Not on filedocumented in this encounter"
--- OUTSIDE RECORDS SUMMARY | ~2019-05-09 | XMS | Encounter Summary ---
Demographics + + + | Address | [address] | | | [place] [address] | + + + | Home Phone [...] Team Providers + +------+ + | Care Environmental Services Assistant Name | Role | Phone | [...] + + | 03/01/ | Documentati | [facility] | Radha Szymanski | Labs Only ([facility] | | 2019 | on | NEPRHOLOGY [place] | V, Medical | - 02/05/19) | | | | [address] | Dsp Engineer | | | | | [address] [place], [place] | | | | | | [address] | | | | | | [phone] | | | +--------+ + + + [...] 2019 | Visit | | [address] [facility] [address] | | | | | | [address] [place], [place] | | | | | | [address] | | | | | | | [...] | [address] | [place] [address] | [phone] | | [facility] | | | | + + + + + | REFERENCE LAB | [address] | [place] [address] | [phone] | | [facility] | | | | [...] | [address] | [place] [address] | [phone] | | [facility] | | | | + + + + + | REFERENCE LAB | [address] | [place] [address] | [phone] | | [facility] | | | | [...] + + | REFERENCE LAB | [address] [facility] | [place] [address] | [phone] | | [facility] | | | | + + + + + | REFERENCE LAB | [address] [facility] | [place] [address] | [phone] | | [facility] | | | | [...] | [address] | [place] [address] | [phone] | | [facility] | | | | + + + + + | REFERENCE LAB | [address] | [place] [address] | [phone] | | [facility] | | | | [...] | [address] | [place] [address] | [phone] | | [facility] | | | | + + + + + | REFERENCE LAB | [address] | [place] [address] | [phone] | | [facility] | | | | [...] | [address] | [place] [address] | [phone] | | [facility] | | | | + + + + + | REFERENCE LAB | [address] | [place] [address] | [phone] | | [facility] | | | | [...] + + | REFERENCE LAB | [address] [facility] | [place] [address] | [phone] | | [facility] | | | | + + + + + | REFERENCE LAB | [address] [facility] | [place] [address] | [phone] | | [facility] | | | | [...] - 1.030 | REFERENCE | | | [place], | | | LAB | | | [...] + + + | REFERENCE LAB | [facility] [facility] | [place] [address] | [phone] | | [facility] | | | | + + + + + | REFERENCE LAB | [address] [facility] | [place] [address] | [phone] | | [facility] | | | | [...] + | REFERENCE LAB | [address] | [place] [address] | [phone] | | [facility] | | | | + + + + + | REFERENCE LAB | [facility] | [place] [address] | [phone] | | [facility] | | | | + + + + + documented in this encounter Visit Diagnoses Not on filedocumented in this encounter"
--- OUTSIDE RECORDS SUMMARY | ~2019-05-09 | XMS | Encounter Summary ---
Demographics + + + | Address | [address] | | | [place] [address] | + + + | Home Phone | | + + + | Preferred Language | Unknown | + + + | Marital Status | Unknown | + + + | Buddhist Affiliation | Unknown | + + + | Race | Unknown | + + + | Ethnic Group | Unknown | + + + Author + + + | Author | [facility] | | | and [place] | + + + | Organization | [facility] | | [...] Team Providers + +------+ + | Care Mexican Food Machine Tender Name | Role | Phone | + +------+ + PCP | Unavailable | + +------+ + Encounter Details +--------+ + + + + | Date | Type | Department | Care Team | Description | +--------+ + + + + | 08/22/ | Hospital | [facility] | Conversion | Pain | | 2014 | Encounter | CONVERSION [address] | Transaction, | | | | | [address] | Provider Unknown | | | | | [place], [place] | [phone] | | | | | [address] | | | | | | [phone] | | | +--------+ + + + [...] 2020 | Visit | | [address] [facility] | | | | | | [address] [facility] | | | | | | [address] | | | | | | | | +--------+---------+ + + + documented as of this encounter Procedures + +--------+ + + + | Procedure Name | Priori | Date/Time | Associated Diagnosis | Comments | | | ty | | | | + +--------+ + + + | XR CHEST 1 VIEW | Routin | 10/09/2010 | | Results for this | | | e | 5:22 AM | | procedure are in the | | | | PDT | | results section. | + +--------+ + + + documented in this encounter Results XR Chest 1 Vw (10/09/2010 5:22 AM PDT) + + | Specimen | + + | | + + + + + | Narrative | Performed At | + + + | This is a non-reportable procedure without a radiologist report and | | | is used for image storage only | | + + + + + | Procedure Note | + + | Manoj Weiss - 12/28/2018 9:48 PM PDT This is a non-reportable procedure | | without a radiologist report and isused for image storage only | + + documented in this encounter Visit Diagnoses + + | Diagnosis | + + | Pain Generalized pain | + + documented in this encounter"
--- OUTSIDE RECORDS SUMMARY | ~2019-05-09 | XMS | Encounter Summary ---
Demographics + + + | Address | [address] | | | [place] [address] | + + + | Home Phone | | + + + | Preferred Language | Unknown | + + + | Marital Status | Unknown | + + + | Restoration Affiliation | Unknown | + + + [...] Team Providers + +------+ + | Care Graphic Design Assistant Name | Role | Phone | [...] | | | [address] | [address] [facility], [place] | Fitting and | | | | [place], [place] | [address] | adjustment of | | | | [address] | | vascular catheter | | | | [phone] | | | +--------+ + + + [...] 2019 | Visit | | [address] [facility] | | | | | | [address] [facility] | | | | | | [address] | | | | | | | [...] was also notified of this. 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 I had a discussion with [...] | Addendum Ends | | | | [facility] | | 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 I had a discussion with [...]
--- OUTSIDE RECORDS SUMMARY | ~2019-05-09 | XMS | Encounter Summary ---
Demographics + + + | Address | [address] | | | [place] [address] | + + + | Home Phone | | + + + | Preferred Language | Unknown | + + + | Marital Status | Unknown | + + + | Synagogue Affiliation [...] Team Providers + +------+ + | Care Mobile Phone Salesperson Name | Role | Phone | + +------+ + | Oziel Michael MD | PCP | | + +------+ + Encounter Details +--------+ + + + + | Date | Type | Department | Care Team | Description | +--------+ + + + + | 10/17/ | Orders Only | [facility] | Leonardo Dickey MD | | | 2013 | | CONVERSION | [address] | | | | | INTERFACES | [place] [address] | | | | | [phone] | [address] | | | | | | [phone] | | | | | | | [...] | | | | | | [address] [facility] | | | | | | [address] | | | | | | | | +--------+---------+ + + + documented as of this encounter Procedures + +--------+ + + + | Procedure Name | Priori | Date/Time | Associated Diagnosis | Comments | | | ty | | | | + +--------+ + + + | VAS ARM BILATERAL | Routin | 10/17/2013 | | Results for this | | MAPPING FOR DIALYSIS | e | 11:25 AM | | procedure are in the | | | | PDT | | results section. | + +--------+ + + + documented in this encounter Results VAS Arm Bilateral Mapping For Dialysis (10/17/2013 11:25 AM PDT) + + | Specimen | + + | | + + + + + | Impressions | Performed At | + + + | Upper extremity vein mapping as shown above. Electronically | | | signed by Leonardo Dickey MD on 10/19/2013 12:08 PM | | + + + + + + | Narrative | Performed At | + + + | US Upper Extremity Dialysis Mapping Bilateral HISTORY: 53 | | | years. Female. Bilateral Upper extremity arterial and venous mapping | | | examination prior to new hemodialysis fistula placement. | | | TECHNIQUE: Arterial mapping using grayscale, color Doppler, and pulse | | | wave spectral Doppler techniques. In addition, venous mapping was | | | completed using grayscale technique. COMPARISON: Ultrasound upper | | | extremity dialysis mapping performed on October 26, 2010 FINDINGS: | | | Patient is Rt-hand dominant. Patient has no hemodialysis | | | catheter. RIGHT CEPHALIC VEIN (diameter) (measurements in | | | millimeters) Upper Humerus: 5.6 Mid Humerus: 4.6 At Elbow: 7.1 | | | Upper Forearm: 4.7 Mid Forearm: 3.6 At Wrist: 4.1 RIGHT BASILIC | | | VEIN (diameter) (measurements in millimeters) Upper Humerus: 5.0 Mid | | | Humerus: 4.6 At Elbow: 5.2 Upper Forearm: Too small Mid Forearm: | | | Too small At Wrist: Too small RIGHT ANTECUBITAL VEIN: 4.3. | | | RIGHT BRACHIAL VEIN (diameter) (measurements in millimeters) Upper | | | Humerus: 5.8 Mid Humerus: 4.6 At Elbow: 3.0 RIGHT AXILLARY VEIN: | | | 8.6 RIGHT RADIAL ARTERY: 3.7 RIGHT ULNAR ARTERY: 2.3 RIGHT | | | BRACHIAL ARTERY: 7.1 LEFT CEPHALIC VEIN (diameter) (measurements | | | in millimeters) Upper Humerus: Current fistula Mid Humerus: Current | | | fistula At Elbow: Current fistula Upper Forearm: 1.1 Mid Forearm: | | | 2.5 At Wrist: 2.1 LEFT BASILIC VEIN (diameter) (measurements in | | | millimeters) Upper Humerus: 6.0 Mid Humerus: 4.6 At Elbow: 4.6 | | | Upper Forearm: Too small Mid Forearm: Too small At Wrist: Too small | | | LEFT ANTECUBITAL VEIN: 5.2. LEFT BRACHIAL VEIN (diameter) | | | (measurements in millimeters) Upper Humerus:5.6 Mid Humerus: 4.0 At | | | Elbow: 3.4 LEFT AXILLARY VEIN: 5.2 LEFT RADIAL ARTERY: 3.8 | | | LEFT ULNAR ARTERY: 1.5 LEFT BRACHIAL ARTERY: 7.4 | | + + + + + | Procedure Note | + + | Abhishek, Rad Conversion - 01/03/2019 10:26 PM PDT US Upper Extremity Dialysis Mapping | | Bilateral HISTORY:53 years. Female. Bilateral Upper extremity arterial and venous | | mapping examination prior to new hemodialysis fistula placement. TECHNIQUE:Arterial | | mapping using grayscale, color Doppler, and pulse wave spectral Doppler techniques. In | | addition, venous mapping was completed using grayscale technique. COMPARISON:Ultrasound | | upper extremity dialysis mapping performed on October 26, 2010 FINDINGS: Patient is Rt-hand | | dominant. Patient has no hemodialysis catheter. RIGHT CEPHALIC VEIN (diameter) | | (measurements in millimeters)Upper Humerus: 5.6Mid Humerus: 4.6At Elbow: 7.1Upper | | Forearm: 4.7Mid Forearm: 3.6At Wrist: 4.1 RIGHT BASILIC VEIN (diameter) (measurements in | | millimeters)Upper Humerus: 5.0Mid Humerus: 4.6At Elbow: 5.2Upper Forearm: Too smallMid | | Forearm: Too smallAt Wrist: Too small RIGHT ANTECUBITAL VEIN: 4.3. RIGHT BRACHIAL VEIN | | (diameter) (measurements in millimeters)Upper Humerus: 5.8Mid Humerus: 4.6At Elbow: 3.0 | | RIGHT AXILLARY VEIN: 8.6RIGHT RADIAL ARTERY: 3.7RIGHT ULNAR ARTERY: 2.3RIGHT BRACHIAL | | ARTERY: 7.1 LEFT CEPHALIC VEIN (diameter) (measurements in millimeters)Upper Humerus: | | Current fistulaMid Humerus: Current fistulaAt Elbow: Current fistulaUpper Forearm: | | 1.1Mid Forearm: 2.5At Wrist: 2.1 LEFT BASILIC VEIN (diameter) (measurements in | | millimeters)Upper Humerus: 6.0Mid Humerus: 4.6At Elbow: 4.6Upper Forearm: Too smallMid | | Forearm: Too smallAt Wrist: Too small LEFT ANTECUBITAL VEIN: 5.2. LEFT BRACHIAL VEIN | | (diameter) (measurements in millimeters)Upper Humerus:5.6Mid Humerus: 4.0At Elbow: 3.4 | | LEFT AXILLARY VEIN: 5.2LEFT RADIAL ARTERY: 3.8LEFT ULNAR ARTERY: 1.5LEFT BRACHIAL | | ARTERY: 7.4 IMPRESSION: Upper extremity vein mapping as shown above. Electronically | | signed by Leonardo Dickey MD on 10/19/2013 12:08 PM | | | |RIGHT BASILIC VEIN (diameter) (measurements in millimeters) | |Upper Humerus: 5.0 | |Mid Humerus: 4.6 | |At Elbow: 5.2 | |Upper Forearm: Too small | |Mid Forearm: Too small | |At Wrist: Too small | | | |RIGHT ANTECUBITAL VEIN: 4.3. | | | |RIGHT BRACHIAL VEIN (diameter) (measurements in millimeters) | |Upper Humerus: 5.8 | |Mid Humerus: 4.6 | |At Elbow: 3.0 | | | |RIGHT AXILLARY VEIN: 8.6 | |RIGHT RADIAL ARTERY: 3.7 | |RIGHT ULNAR ARTERY: 2.3 | |RIGHT BRACHIAL ARTERY: 7.1 | | | |LEFT CEPHALIC VEIN (diameter) (measurements in millimeters) | |Upper Humerus: Current fistula | |Mid Humerus: Current fistula | |At Elbow: Current fistula | |Upper Forearm: 1.1 | |Mid Forearm: 2.5 | |At Wrist: 2.1 | | | |LEFT BASILIC VEIN (diameter) (measurements in millimeters) | |Upper Humerus: 6.0 | |Mid Humerus: 4.6 | |At Elbow: 4.6 | |Upper Forearm: Too small | |Mid Forearm: Too small | |At Wrist: Too small | | | |LEFT ANTECUBITAL VEIN: 5.2. | | | |LEFT BRACHIAL VEIN (diameter) (measurements in millimeters) | |Upper Humerus:5.6 | |Mid Humerus: 4.0 | |At Elbow: 3.4 | | | |LEFT AXILLARY VEIN: 5.2 | |LEFT RADIAL ARTERY: 3.8 | |LEFT ULNAR ARTERY: 1.5 | |LEFT BRACHIAL ARTERY: 7.4 | | | |IMPRESSION: | |Upper extremity vein mapping as shown above. | | | | | + + documented in this encounter Visit Diagnoses Not on filedocumented in this encounter"
--- OUTSIDE RECORDS SUMMARY | ~2019-05-09 | XMS | Encounter Summary ---
Demographics + + + | Address | [address] | | | [place] [address] | + + + | Home Phone [...] Team Providers + +------+ + | Care Metal Plater Name | Role | Phone | + +------+ + | Oziel Michael MD | PCP | | + +------+ + Encounter Details +--------+ + + + + | Date | Type | Department | Care Team | Description | +--------+ + + + + | 07/20/ | Orders Only | [facility] | Conversion | | | 2019 | | NEPHROLOGY [facility] | Transaction, | | | | | [address] | Provider Unknown | | | | | [address] [place], [place] | | | | | | [address] | (Fax) | | | | | [phone] | | | +--------+ + + + [...] 2019 | Visit | | [address] [address] [facility] | | | | | | [address] [place], [place] | | | | | | [address] | | | | | | | [...]
--- OUTSIDE RECORDS SUMMARY | ~2019-05-09 | XMS | Encounter Summary ---
Demographics + + + | Address | [address] | | | [place] [address] | + + + | Home Phone | | + + + | Preferred Language | Unknown | + + + | Marital Status | Single | + + + | Christian Affiliation | Unknown | + + + | Race | Black or | + + + | Ethnic Group | Not or | + + + Author + + + | Author | [facility] | + + + | Organization [...] Providers + +------+ + | Care Credit And Loan Collections Supervisor Name | Role | Phone | [...] | | | | | [address] [place], | | | | | | [place] [address] | | | +--------+ + + + [...] [facility] - | [address] | [place] [address] | | | IMMUNOGENETICS/TRANS | [address] | | | | [facility] | | | | + + + + + documented in this encounter Visit Diagnoses Not on filedocumented in this encounter"
--- OUTSIDE RECORDS SUMMARY | ~2019-05-09 | XMS | Clinical Summary ---
Demographics + + + | Address | [address] | | | [place] [address] | + + + | Home Phone | | + + + | Preferred Language | Unknown | + + + | Marital Status | Single | + + + | Moravian Affiliation | Unknown | + + + | Race | Unknown | + + + | Ethnic Group | Unknown | + + + Author + + + | Author | [facility] (Historical as of | | | 12-29-18) | + + + | Organization | [facility] (Historical as of | | | 12-29-18) | + + + | Address | [...] | | + + +---------+ + | Ashlee Chung | ECON | Unknown | | + + +---------+ + | Hu [place] | ECON | Unknown | | + + +---------+ + | Kayla Chicas | ECON | Unknown | | + + +---------+ + Care Team Providers + +------+ + | Care Ticketer Name | Role | Phone | + +------+ + | Oziel Michael MD | PP | | + +------+ + Allergies No Known Allergies Current Medications + + +---------+---------+------+------+-------+ | Prescription | Sig. | Disp. | Refills | Star | End | Statu | | | | | | t | Date | s | | | | | | Date | | | + + +---------+---------+------+------+-------+ | Cholecalciferol | Take 1 tablet by | | | | | Activ | | (VITAMIN D-3 PO) | mouth. | | | | | e | + + +---------+---------+------+------+-------+ | Calcium Carbonate | Take 200 mg by | | | | | Activ | | 260 MG CHEW | mouth. | | | | | e | + + +---------+---------+------+------+-------+ | valGANciclovir | Take 450 mg by mouth | | | | | Activ | | (VALCYTE) 450 MG | daily. | | | | | e | | tablet | | | | | | | + + +---------+---------+------+------+-------+ | diltiazem | Take 120 mg by mouth | | | | | Activ | | (CARDIZEM CD) 120 MG | daily. | | | | | e | | 24 hr capsule | | | | | | | + + +---------+---------+------+------+-------+ | Magnesium Chloride | Take 1 tablet by | | | | | Activ | | (MAG DELAY) 64 MG | mouth 2 (two) times | | | | | e | | CR tablet | daily. | | | | | | + + +---------+---------+------+------+-------+ | simethicone | Take 1 tablet by | 90 | 3 | 05/3 | | Activ | | (MYLICON) 80 MG | mouth every 6 (six) | tablet | | 1/20 | | e | | chewable | hours as needed for | | | 17 | | | | tabletIndications: | Flatulence. | | | | | | | ESRD (end stage | | | | | | | | renal disease) | | | | | | | | ([facility]), Kidney | | | | | | | | replaced by | | | | | | | | transplant, | | | | | | | | Secondary | | | | | | | | hyperparathyroidism | | | | | | | | ([facility]), Proteinuria | | | | | | | + + +---------+---------+------+------+-------+ | lisinopril | take 1 tablet by | 30 | 11 | 01/0 | | Activ | | (ZESTRIL) 10 MG | mouth once daily | tablet | | 8/20 | | e | | tablet | | | | 18 | | | + + +---------+---------+------+------+-------+ | atorvastatin | take 1 tablet by | 30 | 11 | 01/0 | | Activ | | (LIPITOR) 10 MG | mouth NIGHTLY | tablet | | 8/20 | | e | | tablet | | | | 18 | | | + + +---------+---------+------+------+-------+ | mycophenolate | Take 3 capsules by | 540 | 3 | 04/ | | Activ | | (CELLCEPT) 250 MG | mouth 2 (two) times | capsule | | /20 | | e | | capsuleIndications: | daily. | | | 18 | | | | Status post kidney | | | | | | | | transplant, | | | | | | | | Immunosuppressive | | | | | | | | management encounter | | | | | | | | following kidney | | | | | | | | transplant | | | | | | | + + +---------+---------+------+------+-------+ | tamsulosin | TAKE 1 CAPSULE | 90 | 3 | 12/2 | | Activ | | (FLOMAX) 0.4 MG | (0.4MG TOTAL) BY | capsule | | 5/20 | | e | | capsule | MOUTH DAILY | | | 18 | | | + + +---------+---------+------+------+-------+ | finasteride | TAKE 1 TABLET BY | 90 | 3 | 12/2 | | Activ | | (PROSCAR) 5 MG | MOUTH DAILY. | tablet | | 5/20 | | e | | tablet | | | | 18 | | | + + +---------+---------+------+------+-------+ | metoprolol | TAKE 1 TABLET BY | 90 | 3 | / | | Activ | | (TOPROL-XL) 100 MG | MOUTH DAILY. | tablet | | 10/01 | | e | | 24 hr | | | | 19 | | | | tabletIndications: | | | | | | | | Essential | | | | | | | | hypertension, | | | | | | | | benign, | | | | | | | | Hypomagnesemia, | | | | | | | | Hypophosphatemia, | | | | | | | | Immunosuppressive | | | | | | | | management encounter | | | | | | | | following kidney | | | | | | | | transplant, Kidney | | | | | | | | replaced by | | | | | | | | transplant | | | | | | | + + +---------+---------+------+------+-------+ | diltiazem (TIAZAC) | TAKE ONE CAPSULE BY | 90 | 3 | 06/15 | | Activ | | 120 MG 24 hr | MOUTH EVERY DAY | capsule | | 08/01 | | e | | capsule | | | | 19 | | | + + +---------+---------+------+------+-------+ | tacrolimus | TAKE 3 CAPSULES (3 | 270 | 3 | 08/13 | | Activ | | (PROGRAF) 1 MG | MG TOTAL) BY MOUTH 2 | capsule | | 0/20 | | e | | capsule | TIMES DAILY | | | 19 | | | + + +---------+---------+------+------+-------+ | allopurinol | take 1 tablet by | 30 | 11 | 05/1 | | Activ | | (ZYLOPRIM) 100 MG | mouth once daily | tablet | | 11/01 | | e | | tablet | | | | 19 | | | + + +---------+---------+------+------+-------+ | cinacalcet | TAKE 1 TABLET BY | 30 | 11 | 06/0 | | Activ | | (SENSIPAR) 60 MG | MOUTH DAILY. | tablet | | 09/01 | | e | | tabletIndications: | | | | 19 | | | | Kidney replaced by | | | | | | | | transplant | | | | | | | + + +---------+---------+------+------+-------+ | predniSONE | TAKE 1 TABLET BY | 30 | 11 | 06/2 | | Activ | | (DELTASONE) 5 MG | MOUTH DAILY. | tablet | | 10/01 | | e | | tabletIndications: | | | | 19 | | | | ESRD (end stage | | | | | | | | renal disease) | | | | | | | | (HCC), Kidney | | | | | | | | replaced by | | | | | | | | transplant, | | | | | | | | Immunosuppressive | | | | | | | | management encounter | | | | | | | | following kidney | | | | | | | | transplant | | | | | | | + + +---------+---------+------+------+-------+ | lisinopril | Take 1 tablet by | 30 | 1 | 11/14 | 11/13 | Activ | | (ZESTRIL) 40 MG | mouth daily. 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 | 08/20/2018 | + + + | Immunosuppression (HCC) | 2018 | + + + | CKD (chronic kidney disease), stage III ([facility]) | 01/08/2018 | + + + | Kidney replaced by transplant | 08/01/2016 | + + + | Hyperuricemia | 07/01/2016 | + + + | Hypomagnesemia | 07/01/2016 | + + + | Hypophosphatemia | 07/01/2016 | + + + | Immunosuppressive management encounter following kidney | 05/30/2016 | | transplant | | + + + | Class 2 obesity due to excess calories without serious | 05/30/2016 | | comorbidity with body mass index (BMI) of 37.0 to 37.9 in adult | | + + + | Dyslipidemia | 05/30/2016 | + + + | Persistent proteinuria | 05/30/2016 | + + + | Elevated ferritin level | 05/30/2016 | + + + | 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 | + + + | BK polyoma viruria | 05/30/2016 | + + + | Vitamin D deficiency | 05/30/2016 | + + + | Secondary hyperparathyroidism (HCC) | 05/30/2016 | + + + | Troponin level elevated | 01/01/2016 | + + + | Essential hypertension, benign | 01/01/2016 | + + + Resolved Problems + + + + | Problem | Noted | Resolved | | | Date | Date | + + + + | Transplanted kidney | 05/30/19 | | | | 17 | 7 | + + + + | Hyperkalemia | 01/07/20 | | | | 16 | 7 | + + + + | Hyperphosphatemia | 01/07/20 | | | | 16 | 7 | + + + + | Epigastric abdominal pain | 01/01/20 | | | | 16 | 7 | + + + + | ESRD (end stage renal disease) | 01/01/20 | | | | 16 | 9 | + + + + | ESRD on dialysis | 08/23/19 | | | | 12 | 7 | + + + + Family History + + +------+ + | Medical History | Relation | Name | Comments | + + +------+ + | Hypertension | Father | | | + + +------+ + + +------+ + + | Relation | Name | Status | Comments | + +------+ + + | Father | | | | + +------+ + + | Mother | | | | + +------+ + + Social History + +-------+ +--------+------+ [...] + +---------+ + | Alcohol Use | Drinks/We | oz/Week | Comments | | | ek | | | + + +---------+ + | No | | | | + + +---------+ + + + + | Sex Assigned at | Date Recorded | | | | + + + | Not on file | | + + + Last Filed Vital Signs + + + + | Vital Sign | Reading | Time Taken | + + + + | Blood Pressure | 110/70 | 12/03/2018 2:53 PM PDT | + + + + | Pulse | 71 | 12/03/2018 2:53 PM PDT | + + + + | Temperature | 36.8 C (98.2 F) | 01/08/2018 2:45 PM PDT | + + + + | Respiratory Rate | 20 | 01/02/2016 11:52 AM PDT | + + + + | Oxygen Saturation | 96% | 12/03/2018 2:53 PM PDT | + + + + | Inhaled Oxygen | - | - | | Concentration | | | + + + + | Weight | 110.5 kg (243 lb 8 | 12/03/2018 2:53 PM PDT | | | oz) | | + + + + | Height | 172.7 cm (5' 8") | 12/03/2018 2:53 PM PDT | + + + + | Body Mass Index | 37.02 | 12/03/2018 2:53 PM PDT | + + + + Plan of Treatment + + + + + | Health Maintenance | Due Date | Last Done | Comments | + + + + + | Vaccine: | | | | | Dtap/Tdap/Td (1 - | 9 | | | | Tdap) | | | | + + + + + | Colon Cancer | | | | | Screening | 0 | | | | (Colonoscopy) | | | | + + + + + | Vaccine: Zoster (1 | | | | | of 2) | 0 | | | + + + + + | Vaccine: | | 09/24/2014, 10/25/2010 | | | Pneumococcal 19-64 | 6 | | | | Highest Risk (3 of 3 | | | | | - PPSV23) | | | | + + + + + | Vaccine: Influenza | | 01/29/2016 | | | (#1) | 9 | | | + + + + + Implants + +------+--------+ +--------+--------+--------+ | Implanted | Type | Area | Manufacture | Device | Expira | Model | | | | | r | | tion | / | | | | | | Identi | Date | Serial | | | | | | fier | | / Lot | + +------+--------+ +--------+--------+--------+ | Graft Gortex Thin Wall Rem | | Left: | GORE | | 06/10/ | [id number] | | Rings Lined [id number] 40cm | | Arm | | | 2018 | [id number] | | Ring - | | | | | | | | [id number]: Qty: | | | | | | /[id number] | | 1 on 11/05/2013 by Leonardo Dickey | | | | | | [id number] | | Y, | | | | | | L | | | | | | | | /[id number] | | | | | | | | 465 | + +------+--------+ +--------+--------+--------+ Results Not on filefrom Last 3 Months Insurance + +--------+ +------+-------+ + | Payer | Benefi | Subscriber | Type | Phone | Address | | | t Plan | ID | | | | | | / | | | | | | | Group | | | | | + +--------+ +------+-------+ + | MEDICARE | MEDICA | [id number] | | | [address] | | | RE | | | | [place] [address] | | | IP-OP | | | | | + +--------+ +------+-------+ + | MEDICAID | [place] | [id number] | | | [address] | | | [place] | | | | [place] | | | [place] | | | | [address] | | | CRANE MECHANIC | | | | | + +--------+ +------+-------+ + + +--------+ +--------+ + + | Guarantor Name | Accoun | Relation to | Date | Phone | Billing Address | | | t Type | Patient | of | | | | | | | | | | + +--------+ +--------+ + + | NIK MA | Person | Self [birth year] | Home: | [address] | | | al/Fam | | 1961 | [phone] [place] | | | [place] | | | 08 | [phone] | + +--------+ +--------+ + +
--- OUTSIDE RECORDS SUMMARY | ~2019-05-09 | XMS | Encounter Summary ---
Demographics + + + | Address | [address] | | | [place] [address] | + + + | Home Phone [...] Team Providers + +------+ + | Care Lumber Tying Machine Operator Name | Role | Phone | + +------+ + | Oziel Michael MD | PCP | | + +------+ + Encounter Details +--------+ + + + + | Date | Type | Department | Care Team | Description | +--------+ + + + + | 06/28/ | Orders Only | [facility] | Alexx Gutierrez MD | | | 2017 | | NEPHROLOGY [place] | [address] [place] | | | | | [address] [place] | [address] [place], [place] | | | | | [address] [place], [place] | [address] | | | | | [address] | | | | | | [phone] | | | +--------+ + + + [...] 2019 | Visit | | [address] [facility] | | | | | | [address] [place] | | | | | | [address] | | | | | | | [...] | | | LAB | | | [facility]UG[facility] | | | | | + + [...]
--- OUTSIDE RECORDS SUMMARY | ~2019-05-09 | XMS | Encounter Summary ---
Demographics + + + | Address | [address] | | | [place] [address] | + + + | Home Phone | | + + + | Preferred Language | Unknown | + + + | Marital Status | Single | + + + | Buddhism Affiliation | Unknown | + + + | Race | Black or | + + + | Ethnic Group | Not or | + + + Author + + + | Author | [facility] | [...] Team Providers + +------+ + | Care Forest Fire Lookout Name | Role | Phone | + +------+ + | Oziel Michael MD | PCP | | + +------+ + Encounter Details +--------+ + + + + | Date | Type | Department | Care Team | Description | +--------+ + + + + | 11/19/ | Ancillary | LAB IMMUNOGENETIC | | | | 2012 | Orders | AND TRANSPLANT LAB | | | | | | [address] | | | | | | [place], | | | | | | [place] [address] | | | +--------+ + + + [...] FLOW HLA AB PRA | Routin | 11/19/2012 | | | | SCREEN I/II | e | 10:25 AM | | | | | | PDT | | | + +--------+ + + + documented in this encounter Results LIT FLOW HLA AB PRA SCREEN I/II (11/19/2012 10:25 AM PDT) + + | Specimen | + + | Blood - Blood | + + + + + + + | Performing | Address | City/State/Zipcode | Phone Number | | Organization | | | | + + + + + | [facility] - | [address] | [place] [address] | | | IMMUNOGENETICS/TRANS | [address] | | | | PLANT LABORATORY | | | | + + + + + documented in this encounter Visit Diagnoses Not on filedocumented in this encounter"
--- OUTSIDE RECORDS SUMMARY | ~2019-05-09 | XMS | Encounter Summary ---
Demographics + + + | Address | [address] | | | [place] [address] | + + + | Home Phone | | + + + | Preferred Language | Unknown | + + + | Marital Status | Single | + + + | Zoroastrianism Affiliation | Unknown | + + + | Race | Black or | + + + | Ethnic Group | Not or | + + + Author + + + | Author | [facility] | + + + | Organization | [facility] | + + + | Address | Unknown | + + + | Phone | Unavailable | + + + Support + + +---------+ + | Name | Relationship | Address | Phone | + + +---------+ + | Olesya Lamb | ECON | Unknown | | + + +---------+ + Care Team Providers + +------+ + | Care Shrink Pit Operator Name | Role | Phone | + +------+ + | Oziel Michael MD | PCP | | + +------+ + Encounter Details +--------+ + + + + | Date | Type | Department | Care Team | Description | +--------+ + + + + | 08/17/ | Ancillary | LAB IMMUNOGENETIC | | | | 2012 | Orders | AND TRANSPLANT LAB | | | | | | [address] | | | | | | [place], | | | | | | [place] [address] | | | +--------+ + + + [...] FLOW HLA AB PRA | Routin | 08/17/2012 | | | | SCREEN I/II | e | 11:47 AM | | | | | | PDT | | | + +--------+ + + + documented in this encounter Results LIT FLOW HLA AB PRA SCREEN I/II (08/17/2012 11:47 AM PDT) + + | Specimen | + + | Blood - Blood | + + + + + + + | Performing | Address | City/State/Zipcode | Phone Number | | Organization | | | | + + + + + | [facility] - | [address] | [place] [address] | | | IMMUNOGENETICS/TRANS | [address] | | | | PLANT LABORATORY | | | | + + + + + documented in this encounter Visit Diagnoses Not on filedocumented in this encounter"
--- OUTSIDE RECORDS SUMMARY | ~2019-05-09 | XMS | Encounter Summary ---
Demographics + + + | Address | [address] | | | [place] [address] | + + + | Home Phone [...] + + + | Author | [facility] | | | and [place] | + + + | Organization | [facility] | | | [...] Providers + +------+ + | Care Manager Marketing Communications Name | Role | Phone | + +------+ + | Oziel Michael MD | PCP | | + +------+ + Encounter Details +--------+ + + + + | Date | Type | Department | Care Team | Description | +--------+ + + + + | 12/11/ | Orders Only | [facility] | Anthony Martinez, | | | 2018 | | NEPHROLOGY [place] | BREAST SURGEON [address] | | | | | [address] [facility] | [address] | | | | | [place] | [place] | | | | | [address] | [address] | | | | | [phone] | [phone] | | | | | | | [...] 2020 | Visit | | [address] [facility] | | | | | | [address] [place] | | | | | | [address] | | | | | | | | +--------+---------+ + + + documented as of this encounter Visit Diagnoses Not on filedocumented in this encounter"
--- OUTSIDE RECORDS SUMMARY | ~2019-05-09 | XMS | Encounter Summary ---
Demographics + + + | Address | [address] | | | [place] [address] | + + + | Home Phone [...] Team Providers + +------+ + | Care Medical Office Assistant Instructor Name | Role | Phone | + +------+ + | Oziel Michael MD | PCP | | + +------+ + Encounter Details +--------+ + + + + | Date | Type | Department | Care Team | Description | +--------+ + + + + | 10/11/ | Orders Only | [facility] | Adrian Shaffer MD | | | 2010 | | [facility] | [address] [facility] | | | | | CLINICAL LABORATORY | [place], [place] | | | | | [address] | [address] | | | | | [place], [place] | [phone] | | | | | [address] | | | | | | [phone] | | | +--------+ + + + [...] 2019 | Visit | | [address] [facility] | | | | | | [address] | | | | | | [address] | | | | | | | [...] [facility];[address] | | | [facility];[place] [address] CULTURE | | | NO FUNGUS ISOLATED | | | Testing performed at [facility], [address] [facility] [facility], | | | [place] [address] REPORT STATUS | | | 11/03/2010 FINAL [...]
--- OUTSIDE RECORDS SUMMARY | ~2019-05-09 | XMS | Encounter Summary ---
Demographics + + + | Address | [address] | | | [place] [address] | + + + | Home Phone [...] Team Providers + +------+ + | Care Control Clerk Name | Role | Phone | + +------+ + PCP | Unavailable | + +------+ + Encounter Details +--------+ + + + + | Date | Type | Department | Care Team | Description | +--------+ + + + + | 07/06/ | Hospital | [facility] | Conversion | ESRD (end stage | | 2013 | Encounter | CENTER CV INTRA OP | Transaction, | renal disease) ([facility]) | | | | [address] | Provider Unknown | | | | | [place], [place] | [phone] | | | | | [address] | | | | | | [phone] | Alexx Gutierrez MD | | | | | | [address] [place] | | | | | | [address] [place], [place] | | | | | | [address] | | | | | | | [...] 07/06/121854 Date of Service: 07/06/121853 Status: Signed Tool Sharpener: Kely Wilkerson Pt tolerating juice well, vss, [...] [place] | | | | | | [address] | | | | | | | [...] conscious sedation and | | | independent senior living supervision performed throughout the | | | [...] needle and | | | exchanged for 4-Swiss micropuncture sheath. Initial fistula | | | pressure was obtained and fistulogram obtained from the left cubital | | | fossa to the right atrium. Given the tandem preocclusive stenosis | | | in proximal left cephalic vein and middle left cephalic vein (in-stent | | | restenosis), I decided to perform angioplasty of the venous lesions. | | | 4-Swiss micropuncture sheath was exchanged for 6-Swiss short | | | sheath over a [...] Conversion - 01/04/2019 11:57 PM PDT [facility] | | FISTULAGRAM07/06/2012 6:28 PM HISTORY:53 [...] adequate conscious sedation and independent | | senior living supervision performed throughout the procedure. PROCEDURE: Informed [...] accessed using micropuncture needle and exchanged for 4-Swiss | | micropuncture sheath. Initial fistula pressure was obtained and fistulogram obtained | | from the left cubital fossa to the right atrium. Given the tandem preocclusive stenosis | | in proximal left cephalic vein and middle left cephalic vein (in-stent restenosis), I | | decided to perform angioplasty of the venous lesions. 4-Swiss micropuncture sheath was | | exchanged for 6-Swiss short sheath over a 0.035, angled Glidewire. [...] conscious sedation and | | | independent senior living supervision performed throughout the | | | [...] needle and | | | exchanged for 4-Swiss micropuncture sheath. Initial fistula | | | pressure was obtained and fistulogram obtained from the left cubital | | | fossa to the right atrium. Given the tandem preocclusive stenosis | | | in proximal left cephalic vein and middle left cephalic vein (in-stent | | | restenosis), I decided to perform angioplasty of the venous lesions. | | | 4-Swiss micropuncture sheath was exchanged for 6-Swiss short | | | sheath over a [...] Rad Conversion - 01/04/2019 11:57 PM PDT [facility] | | FISTULAGRAM07/06/2012 6:28 PM HISTORY:53 [...] adequate conscious sedation and independent | | senior living supervision performed throughout the procedure. PROCEDURE: Informed [...] accessed using micropuncture needle and exchanged for 4-Swiss | | micropuncture sheath. Initial fistula pressure was obtained and fistulogram obtained | | from the left cubital fossa to the right atrium. Given the tandem preocclusive stenosis | | in proximal left cephalic vein and middle left cephalic vein (in-stent restenosis), I | | decided to perform angioplasty of the venous lesions. 4-Swiss micropuncture sheath was | | exchanged for 6-Swiss short sheath over a 0.035, angled Glidewire. [...]
--- OUTSIDE RECORDS SUMMARY | ~2019-05-09 | XMS | Encounter Summary ---
Demographics + + + | Address | [address] | | | [place] [address] | + + + | Home Phone [...] + + + | Author | [facility] | + + + | Organization | [facility] | + + + | Address | Unknown | + + + | Phone | Unavailable | + + + Support + + +---------+ + | Name | Relationship | Address | Phone | + + +---------+ + | Olesya Lmab | ECON | Unknown | | + + +---------+ + Care Team Providers + +------+ + | Care Tribunal Member Name | Role | Phone | + +------+ + | Oziel Michael MD | PCP | | + +------+ + Encounter Details +--------+ + + + + | Date | Type | Department | Care Team | Description | +--------+ + + + + | 07/22/ | Ancillary | LAB IMMUNOGENETIC | | | | 2013 | Orders | AND TRANSPLANT LAB | | | | | | [address] | | | | | | [address] [place], | | | | | | [place] [address] | | | +--------+ + + + [...] FLOW HLA AB PRA | Routin | 07/22/2013 | | | | SCREEN I/II | e | 1:52 PM | | | | | | PDT | | | + +--------+ + + + | LIT FLOW HLA II AB | Routin | 07/22/2013 | | | | AG ID, BLOOD | e | 1:52 PM | | | | | | PDT | | | + +--------+ + + + | LIT FLOW HLA I AB AG | Routin | 07/22/2013 | | Results for this | | ID, BLOOD | e | 1:52 PM | | procedure are in the | | | | PDT | | results section. | + +--------+ + + + documented in this encounter Results LIT FLOW HLA II AB AG ID, BLOOD (07/22/2013 1:52 PM PDT) + + | Specimen | + + | Blood - Blood | + + + + + + + | Performing | Address | City/State/Zipcode | Phone Number | | Organization | | | | + + + + + | [facility] - | [address] | [place] [address] | | | IMMUNOGENETICS/TRANS | [address] | | | | PLANT LABORATORY | | | | + + + + + LIT FLOW HLA I AB AG ID, BLOOD (07/22/2013 1:52 PM PDT) + + + + + [...] + + | [facility] - | [address] | [place] [address] | | | IMMUNOGENETICS/TRANS | [address] | | | | PLANT LABORATORY | | | | + + + + + LIT FLOW HLA AB PRA SCREEN I/II (07/22/2013 1:52 PM PDT) + + | Specimen | + + | Blood - Blood | + + + + + + + | Performing | Address | City/State/Zipcode | Phone Number | | Organization | | | | + + + + + | [facility] - | [address] | [place] [address] | | | IMMUNOGENETICS/TRANS | [address] | | | | PLANT LABORATORY | | | | + + + + + documented in this encounter Visit Diagnoses Not on filedocumented in this encounter"
--- OUTSIDE RECORDS SUMMARY | ~2019-05-09 | XMS | Encounter Summary ---
Demographics + + + | Address | [address] | | | [place] [address] | + + + | Home Phone [...] + + + | Author | [facility] | | | and [place] | + + + | Organization | [facility] | | | and [...] Team Providers + +------+ + | Care Buffet Runner Name | Role | Phone | + +------+ + | Oziel Michael MD | PCP | | + +------+ + Encounter Details +--------+ + + + + | Date | Type | Department | Care Team | Description | +--------+ + + + + | 10/10/ | Orders Only | [facility] | Dav Andre, | | | 2010 | | MEDICAL CENTER | MD [address] | | | | | CLINICAL LABORATORY | [place] [address] | | | | | [address] | [phone] | | | | | [place], [place] | | | | | | [address] | | | | | | [phone] | | | +--------+ + + + [...] | Visit | | [address] [facility] [place] | | | | | | [address] [place] | | | | | | [address] | | | | | | | | +--------+---------+ + + + documented as of this encounter Procedures + +--------+ + + + | Procedure Name | Priori | Date/Time | Associated Diagnosis | Comments | | | ty | | | | + +--------+ + + + | MRSA NAAT | STAT | 10/10/2010 | | Results for this | | | | 5:03 AM | | procedure are in the | | | | PDT | | results section. | + +--------+ + + + documented in this encounter Results MRSA NAAT (10/10/2010 5:03 AM PDT) + + | Specimen | + + | | + + + + + | Narrative | Performed At | + + + | [facility] EXTERNAL LAB | | Testing performed at [address];[place] [address] MRSA PCR | | | NEGATIVE Testing performed at | | | [address];[place] [address] | | + + + + +---------+ + + | Performing | Address | City/State/Zipcode | Phone Number | | Organization | | | | + +---------+ + + | EXTERNAL LAB | | | | + +---------+ + + documented in this encounter Visit Diagnoses Not on filedocumented in this encounter"
--- OUTSIDE RECORDS SUMMARY | ~2019-05-09 | XMS | Encounter Summary ---
Demographics + + + | Address | [address] | | | [place] [address] | + + + | Home Phone [...] Team Providers + +------+ + | Care Pot Maker Name | Role | Phone | + +------+ + | Oziel Michael MD | PCP | | + +------+ + Encounter Details +--------+ + + + + | Date | Type | Department | Care Team | Description | +--------+ + + + + | 03/22/ | Orders Only | [facility] | Alexx Gutierrez MD | | | 2016 | | NEPRHOLOGY [place] | [address] | | | | | [address] | [address] [place], [place] | | | | | [address] [place], [place] | [address] | | | | | [address] | | | | | | [phone] | | | +--------+ + + + [...] 2020 | Visit | | [address] [facility] [place] | | | | | | [address] [place] | | | | | | [address] | | | | | | | [...] | | | LAB | | | [facility] | | | | | + + [...]
--- OUTSIDE RECORDS SUMMARY | ~2019-05-09 | XMS | Encounter Summary ---
Demographics + + + | Address | [address] | | | [place] [address] | + + + | Home Phone [...] + + + | Author | [facility] | | | and [place] | + + + | Organization | [facility] | | | [...] Team Providers + +------+ + | Care Weight Control Engineer Name | Role | Phone | + +------+ + | Oziel Michael MD | PCP | | + +------+ + Encounter Details +--------+ + + + + | Date | Type | Department | Care Team | Description | +--------+ + + + + | 10/12/ | Orders Only | [facility] | Emmett Solitario MD | | | 2010 | | [facility] | [address] [facility] | | | | | CLINICAL LABORATORY | [place] [address] | | | | | [address] | [phone] | | | | | [place], [place] | | | | | | [address] | | | | | | [phone] | | | +--------+ + + + [...] 2020 | Visit | | [address] [facility] | | | | | | [address] [place], [place] | | | | | | [address] | | | | | | | | +--------+---------+ + + + documented as of this encounter Procedures + +--------+ + + + | Procedure Name | Priori | Date/Time | Associated Diagnosis | Comments | | | ty | | | | + +--------+ + + + | MRSA NAAT | Timed | 10/12/2010 | | Results for this | | | | 4:29 PM | | procedure are in the | | | | PDT | | results section. | + +--------+ + + + documented in this encounter Results MRSA NAAT (10/12/2010 4:29 PM PDT) + + | Specimen | + + | | + + + + + | Narrative | Performed At | + + + | [facility] | EXTERNAL LAB | | Testing performed at [address];[place] [address] MRSA PCR | | | NEGATIVE Testing performed at | | | [address];[place] [address] | | + + + + +---------+ + + | Performing | Address | City/State/Zipcode | Phone Number | | Organization | | | | + +---------+ + + | EXTERNAL LAB | | | | + +---------+ + + documented in this encounter Visit Diagnoses Not on filedocumented in this encounter"
--- OUTSIDE RECORDS SUMMARY | ~2019-05-09 | XMS | Encounter Summary ---
Demographics + + + | Address | [address] | | | [place] [address] | + + + | Home Phone [...] Team Providers + +------+ + | Care Guest Room Inspector Name | Role | Phone | + +------+ + | Oziel Michael MD | PCP | | + +------+ + Encounter Details +--------+ + + + + | Date | Type | Department | Care Team | Description | +--------+ + + + + | 10/11/ | Orders Only | [facility] | Adrian Shaffer MD | | | 2010 | | [facility] | [address] | | | | | CLINICAL LABORATORY | [place], [place] | | | | | [address] | [address] | | | | | [place], [place] | [phone] | | | | | [address] | | | | | | [phone] | | | +--------+ + + + [...] | | | | | | [address] [place] | | | | | | [address] | | | | | | | [...] | Testing performed | | | at [facility];[address] [place] [address];[place] [address] SPECIAL REQUESTS | | | RAC | | | Testing performed at [facility];[address] [place], [place] [address] [place] [address] | | | CULTURE NO GROWTH IN 5 DAYS. | | | Testing | | | performed at [facility];[address] [place] [address] REPORT STATUS | | | 10/17/2010 FINAL [...]
--- OUTSIDE RECORDS SUMMARY | ~2019-05-09 | XMS | Encounter Summary ---
Demographics + + + | Address | [address] | | | [place] [address] | + + + | Home Phone | | + + + | Preferred Language | Unknown | + + + | Marital Status | Single | + + + | Jehovah'S Witness Affiliation | Unknown | + + + | Race | Black or | + + + | Ethnic Group | Not or | + + + Author + + + | Author | [facility] | + + [...] Team Providers + +------+ + | Care Kitchen And Counter Worker Name | Role | Phone | [...] | | | | | [address] [place], | | | | | | [place] [address] | | | +--------+ + + + [...] + + | [facility] - | [address] | [place] [address] | | | IMMUNOGENETICS/TRANS | [address] | | | | PLANT LABORATORY | | | | + + + + + documented in this encounter Visit Diagnoses Not on filedocumented in this encounter"
--- OUTSIDE RECORDS SUMMARY | ~2019-05-09 | XMS | Encounter Summary ---
Demographics + + + | Address | [address] | | | [place] [address] | + + + | Home Phone [...] Team Providers + +------+ + | Care Polisher Eyeglass Frames Name | Role | Phone | + +------+ + PCP | Unavailable | + +------+ + Encounter Details +--------+ + + + + | Date | Type | Department | Care Team | Description | +--------+ + + + + | 10/10/ | Hospital | [facility] | Gina Cabello | Unspecified | | 2010 - | Encounter | [facility] | MD [place] [address] | essential | | | | INTENSIVE CARE UNIT | [address] | hypertension; | | 10/17/ | | [address] | [place], [place] | Unspecified iron | | 2010 | | [place], [place] | [address] | deficiency anemia; | | | | [address] | [phone] | Gross hematuria; | | | | [phone] | | Cyst of kidney, | | | | | Yulissa Andre MD | acquired; Other | | | | | [address] | Chronic Pulmonary | | | | | [place] [address] | Heart Diseases | | | | | [phone] | ([facility]); Morbid | | | | | | obesity ([facility]); Hx of | | | | | | past noncompliance; | | | | | | Encntr long-term | | | | | | NSAID use; BMI | | | | | | 31.0-31.9,Adult; | | | | | | Unspecified renal | | | | | | failure; Mal hy kid | | | | | | w cr kid V ([facility]); | | | | | | End stage renal | | | | | | disease ([facility]); | | | | | | Rhabdomyolysis; [...] 2020 | Visit | | [address] [facility] | | | | | | [address] | | | | | | [address] | | | | | | | [...] Performed At | + + + | [facility] [address] Ph: | | | Patient Name: NIK MA Date of : | | | 1960 Medical Record: [id number] Account: [id number] | | | Exam Date/Time: 10/12/2010 19:50 Ordering | | | Physician: GINA CABELLO Order Detail: [id number] Exam Description: | | | [facility] | | | | | | [place] [facility] 10/12/2010 7:50 PM [...] - 01/05/2019 5:11 PM PDT | | [facility] | | [facility] [address] | | | | | | Patient Name: NIK MA | | Date of : 1960 | | Medical Record: [id number] | | Account: [id number] | | | | | | Exam [...] Performed At | + + + | [facility] [address] Ph: | | | Patient Name: NIK MA Date of : | | | 1960 Medical Record: [id number] Account: [id number] | | | Exam Date/Time: 10/12/2010 09:00 [...] timeout was performed. Patient positioning: Prone. Axial thermospray operator | | | images were obtained through [...] - 01/05/2019 5:11 PM PDT | | [facility] | | [facility] [address] | | | | | | Patient Name: NIK MA | | Date of : 1960 | | Medical Record: [id number] | | Account: [id number] | | | | | | Exam [...] | Patient positioning: Prone. | | Axial thermospray operator images were obtained through region of interest [...] that was | | | non-reportable in [employer] system. | | + + + + + | Procedure Note | + + | Manoj Weiss Conversion - 01/05/2019 5:11 PM PDT See medical record for report. This is | | a converted record that was non-reportable in [employer] system. | + + IR Placement Tunneled CV Cath (10/12/2010 4:18 PM PDT) + + | Specimen | + + | | + + + + + | Narrative | Performed At | + + + | [facility] [address] Ph: | | | Patient Name: NIK MA Date of : | | | 1960 Medical Record: [id number] Account: [id number] | | | Exam Date/Time: 10/12/2010 07:00 [...] jugular vein. 3. Placement of 19 cm, 14.5-C[place]ican | | | dual-lumen tunneled palindrome hemodialysis [...] conscious sedation and | | | independent fci supervision of the conscious sedation was | [...] | | Upper chest radiograph shows dual-lumen, 14.5-[place], 19-cm, | | | tunneled dialysis catheter [...] and | | | exchanged for a 4-[place] micropuncture sheath over a 0.018 wire. | | | Skin in the infraclavicular region was infiltrated with 1% | | | lidocaine and a 5-mm skin incision was made. A 14.5-[place], | | | dual-lumen, 19-cm tunneled hemodialysis catheter was placed a | | | subcutaneous tunnel using a metallic tunneler. The 4-[place] sheath | | | was exchanged for a 0.035, 3-mm J-wire with its tip in the right | | | atrium under fluoroscopy guidance. The skin and subcutaneous tract | | | was dilated using at 12 and 14-[place]ican facial dilators. A 15-[place]ican | | | peel-away sheath was placed [...] Successful placement of a | | | 14.5-[place] dual-lumen 19-cm tunneled hemodialysis catheter with its | | | tip in the upper portion of the right atrium without incidence. | | | | | + + + + + | Procedure Note | + + | Manoj Weiss - 01/05/2019 5:11 PM PDT | | [facility] | | [facility] [address] | | | | | | Patient Name: NIK AM | | Date of : 1960 | | Medical Record: [id number] | | Account: [id number] | | | | | | Exam [...] | | 3. Placement of 19 cm, 14.5-[place]ican dual-lumen tunneled palindrome | | hemodialysis catheter [...] adequate conscious sedation and | | independent fci supervision of the conscious sedation was | [...] | 3. Upper chest radiograph shows dual-lumen, 14.5-[place]ican, 19-cm, | | tunneled dialysis catheter with [...] needle | | and exchanged for a 4-[place] micropuncture sheath over a 0.018 wire. Skin | | in the infraclavicular region was infiltrated with 1% lidocaine and a 5-mm | | skin incision was made. A 14.5-[place]ican, dual-lumen, 19-cm tunneled | | hemodialysis catheter was placed a subcutaneous tunnel using a metallic | | tunneler. The 4-[place]ican sheath was exchanged for a 0.035, 3-mm J-wire with | | its tip in the right atrium under fluoroscopy guidance. The skin and | | subcutaneous tract was dilated using at 12 and 14-[place]ican facial dilators. | | A 15-[place] peel-away sheath was placed over the wire [...] | | 2. Successful placement of a 14.5-[place] dual-lumen 19-cm tunneled | | hemodialysis catheter with its tip in the upper portion of the right atrium | | without incidence. | | | | | + + XR Chest 1 Vw (10/11/2010 5:46 AM PDT) + + | Specimen | + + | | + + + + + | Narrative | Performed At | + + + | [facility] [address] Ph: | | | Patient Name: NIK MA Date of : | | | 1960 Medical Record: [id number] Account: [id number] | | | Exam Date/Time: 10/11/2010 05:23 [...] - 01/05/2019 5:11 PM PDT | | [facility] | | [facility] [address] | | | | | | Patient Name: NIK MA | | Date of : 1960 | | Medical Record: [id number] | | Account: [id number] | | | | | | Exam [...] Performed At | + + + | [place] [address] | | | Patient Name: NIK MA Date of : | | | 1960 Medical Record: [id number] Account: [id number] | | | Exam Date/Time: 10/10/2010 08:25 [...] | A Micheal: 0.35 m/s TV Dec [place]: 3.33 m/s2 TV Dec Time: | | | 188.76 ms TV E Micheal: 0.62 m/s TV E/A Ratio: 1.78 | | | Lead Material Handler: JOHNNY Authenticated by: Izabel Mays MD Report Date/Time: | | | 10-10-2010 13:11:33 | | + + + + + | Procedure Note | + + | Abhishek Rad Conversion - 01/05/2019 5:11 PM [facility] | | [place], [place] [address]Eq: Patient Name: NIK MADate of : | | 1960Medical Record: [id number]: [id number] | | Date/Time: 10/10/2010 08:25Performing Physician: Izabel [...] (A-L): 45.71 ml/m2LAAs | | A2C: 23.14 [id number] A-L A2C: 88.57 mlLALs A2C: 5.13 cmLAAs A4C: 25.08 [id number] | | A-L A4C: 81.76 mlLALs A4C: [...] Vmax: 2.00 cm2AVA (VTI): | | 2.01 [id number] Dopp: 3.28 l/lbzo7YWRW Dopp: 6.90 l/minHR: 99.58 BPMLVOT maxPG: | [...] 0.75 m/sMV VTI: 26.86 cmMVA (VTI): 2.58 cs5Uufcpp e': 0.07 | | m/sSeptal E/e': 21.69Lateral [...] 4.07 m/sTV A Micheal: 0.35 m/sTV Dec [place]: 3.33 m/s2TV Dec Time: | | 188.76 msTV E Micheal: 0.62 m/sTV E/A Ratio: 1.78 Lead Material Handler: SHEAuthenticated by: Izabel | | Davon MDReport [...] A Micheal: 0.35 m/s | |TV Dec [place]: 3.33 m/s2 | |TV Dec Time: 188.76 ms | |TV E Micheal: 0.62 m/s | |TV E/A Ratio: 1.78 | | | |Lead Material Handler: EMCCAW | |Authenticated by: Izabel Mays MD | |Report Date/Time: 10-10-2010 13:11:33 | + + US Renal Limited (10/10/2010 7:41 AM PDT) + + | Specimen | + + | | + + + + + | Narrative | Performed At | + + + | [facility] [address] Ph: | | | Patient Name: NIK MA Date of : | | | 1960 Medical Record: [id number] Account: [id number] | | | Exam Date/Time: 10/10/2010 06:00 [...] - 01/05/2019 5:11 PM PDT | | [facility] | | [facility] [address] | | | | | | Patient Name: NIK MA | | Date of : 1960 | | Medical Record: [id number] | | Account: [id number] | | | | | | Exam [...] Performed At | + + + | [facility] [address] Ph: | | | Patient Name: NIK MA Date of : | | | 1960 Medical Record: [id number] Account: [id number] | | | Exam Date/Time: 10/10/2010 03:02 Ordering | | | Physician: FARHAD OCHOA Order Detail: [id number] Exam Description: | | | CT CHEST [...] - 01/05/2019 5:11 PM PDT | | [facility] | | [facility] [address] | | | | | | Patient Name: NIK MA | | Date of : 1960 | | Medical Record: [id number] | | Account: [id number] | | | | | | Exam [...] Performed At | + + + | [facility] [address] Ph: | | | Patient Name: NIK MA Date of : | | | 1960 Medical Record: [id number] Account: [id number] | | | Exam Date/Time: 10/10/2010 02:12 Ordering | | | Physician: FARHAD OCHOA Order Detail: [id number] Exam Description: | | | XR CHEST [...] - 01/05/2019 5:11 PM PDT | | [facility] | | [facility] [address] | | | | | | Patient Name: NIK MA | | Date of : 1960 | | Medical Record: [id number] | | Account: [id number] | | | | | | Exam [...]
--- OUTSIDE RECORDS SUMMARY | ~2019-05-09 | XMS | Encounter Summary ---
Demographics + + + | Address | [address] | | | [place] [address] | + + + | Home Phone | | + + + | Preferred Language | Unknown | + + + | Marital Status | Unknown | + + + | Christianity Affiliation | Unknown | + + + | Race | Unknown | + + + | Ethnic Group | Unknown | + + + Author + + + | Author | [facility] | | | and [place] | + + + | Organization | [facility] | | | [...] Team Providers + +------+ + | Care Pump Mechanic Name | Role | Phone | + +------+ + | Oziel Michael MD | PCP | | + +------+ + Encounter Details +--------+ + + + + | Date | Type | Department | Care Team | Description | +--------+ + + + + | 06/01/ | Orders Only | [facility] | Conversion | | | 2018 | | NEPHROLOGY [place] | Transaction, | | | | | [address] | Provider Unknown | | | | | [address] [place], [place] | | | | | | [address] | (Fax) | | | | | [phone] | | | +--------+ + + + [...] | | | | | | [address] [place], [place] | | | | | | [address] | | | | | | | [...]
--- OUTSIDE RECORDS SUMMARY | ~2019-05-09 | XMS | Encounter Summary ---
Demographics + + + | Address | [address] | | | [place] [address] | + + + | Home Phone [...] Providers + +------+ + | Care Supervisor Clam Bed Name | Role | Phone | + +------+ + | Oziel Michael MD | PCP | | + +------+ + Encounter Details +--------+ + + + + | Date | Type | Department | Care Team | Description | +--------+ + + + + | 08/22/ | Orders Only | [facility] | Alexx Gutierrez MD | | | 2019 | | NEPRHOLOGY [place] | [address] | | | | | [address] | [address] [place], [place] | | | | | [address] [place], [place] | [address] | | | | | [address] | | | | | | [phone] | | | +--------+ + + + [...] 2020 | Visit | | [address] [facility] | | | | | | [address] [place] | | | | | | [address] | | | | | | | | +--------+---------+ + + + documented as of this encounter Visit Diagnoses Not on filedocumented in this encounter"
--- OUTSIDE RECORDS SUMMARY | ~2019-05-09 | XMS | Encounter Summary ---
Demographics + + + | Address | [address] | | | [place] [address] | + + + | Home Phone | | + + + | Preferred Language | Unknown | + + + | Marital Status | Unknown | + + + | Moravian Affiliation | Unknown | + + + | Race | Unknown | + + + | Ethnic Group | Unknown | + + + Author + + + | Author | [facility] | | | and [place] | + + + | Organization | [facility] | | [...] Team Providers + +------+ + | Care Waiter/Waitress Head Name | Role | Phone | + +------+ + | Oziel Michael MD | PCP | | + +------+ + Encounter Details +--------+ + + + + | Date | Type | Department | Care Team | Description | +--------+ + + + + | 02/22/ | Orders Only | [facility] | Radha Szymanski | | | 2019 | | NEPRHOLOGY [place] | V, Medical | | | | | [address] | [employer] Supervisor | | | | | [address] [place], [place] | | | | | | [address] | | | | | | [phone] | | | +--------+ + + + [...] [place] | | | | | | [address] | | | | | | | | +--------+---------+ + + + documented as of this encounter Visit Diagnoses Not on filedocumented in this encounter"
--- OUTSIDE RECORDS SUMMARY | ~2019-05-09 | XMS | Clinical Summary ---
Demographics + + + | Address | [address] | | | [place] [address] | + + + | Home Phone [...] Team Providers + +------+ + | Care Vehicle Maintenance Technician Name | Role | Phone | + +------+ + | Oziel Michael MD | PCP | | + +------+ + Allergies No Known Allergies Medications + + + +---------+------+------+-------+ | Medication | Sig | Dispensed | Refills | Star | End | Statu | | | | | | t | Date | s | | | | | | Date | | | + + + +---------+------+------+-------+ | Cholecalciferol | Take 1 tablet by | | 0 | 01/1 | | Activ | | (VITAMIN D-3 PO) | mouth. | | | 0/20 | | e | | | | | | 12 | | | + + + +---------+------+------+-------+ | Calcium Carbonate | Take 200 mg by | | 0 | 01/1 | | Activ | | 260 MG CHEW | mouth. | | | 6/20 | | e | | | | | | 17 | | | + + + +---------+------+------+-------+ | valGANciclovir | Take 450 mg by mouth | | 0 | 01/1 | | Activ | | (VALCYTE) 450 mg | daily. | | | 6/20 | | e | | tablet | | | | 17 | | | + + + +---------+------+------+-------+ | dilTIAZem | Take 120 mg by mouth | | 0 | 02/1 | | Activ | | (CARDIZEM CD) 120 mg | daily. | | | 7/20 | | e | | 24 hr capsule | | | | 17 | | | + + + +---------+------+------+-------+ | magnesium chloride | Take 1 tablet by | | 0 | 03/2 | | Activ | | (MAGDELAY) 70 mg EC | mouth 2 (two) times | | | 0/20 | | e | | tablet | daily. | | | 17 | | | + + + +---------+------+------+-------+ | simethicone | Take 1 tablet by | 90 | 3 | 05/3 | | Activ | | (MYLICON) 80 mg | mouth every 6 (six) | tablet | | 1/20 | | e | | chewable tablet | hours as needed for | | | 17 | | | | | Flatulence. | | | | | | + + + +---------+------+------+-------+ | lisinopril | take 1 tablet by | 30 | 11 | 01/0 | | Activ | | (PRINIVIL, ZESTRIL) | mouth once daily | tablet | | 8/20 | | e | | 10 mg tablet | | | | 18 | | | + + + +---------+------+------+-------+ | mycophenolate | Take 3 capsules by | 540 | 3 | 04/1 | | Activ | | (CELLCEPT) 250 mg | mouth 2 (two) times | capsule | | 8/20 | | e | | capsule | daily. | | | 18 | | | + + + +---------+------+------+-------+ | allopurinol | take 1 tablet by | 30 | 11 | 05/1 | | Activ | | (ZYLOPRIM) 100 mg | mouth once daily | tablet | | 6/20 | | e | | tablet | | | | 19 | | | + + + +---------+------+------+-------+ | cinacalcet | TAKE 1 TABLET BY | 30 | 11 | 06/0 | | Activ | | (SENSIPAR) 60 MG | MOUTH DAILY. | tablet | | 4/20 | | e | | tablet | | | | 19 | | | + + + +---------+------+------+-------+ | predniSONE | TAKE 1 TABLET BY | 30 | 11 | 06/2 | | Activ | | (DELTASONE) 5 mg | MOUTH DAILY. | tablet | | 5/20 | | e | | tablet | | | | 19 | | | + + + +---------+------+------+-------+ | finasteride | TAKE 1 TABLET BY | 90 | 3 | / | | Activ | | (PROSCAR) 5 mg | MOUTH DAILY. | tablet | | 0/20 | | e | | tabletIndications: | | | | 19 | | | | Status post kidney | | | | | | | | transplant, | | | | | | | | Persistent | | | | | | | | proteinuria, Long | | | | | | | | term (current) use | | | | | | | | of 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 | | | | | | | + + + +---------+------+------+-------+ | lisinopril | take 1 tablet by | 30 | 11 | /2 | | Activ | | (PRINIVIL,ZESTRIL) | mouth once daily | tablet | | 5/20 | | e | | 40 MG | | | | 19 | | | | tabletIndications: | | | | | | | | Benign essential | | | | | | | | hypertension, CKD | | | | | | | | (chronic kidney | | | | | | | | disease), stage III | | | | | | | | (HCC), Status post | | | | | | | | kidney transplant | | | | | | | + + + +---------+------+------+-------+ | atorvaSTATin | | | 0 | 10/0 | | Activ | | (LIPITOR) 10 mg | | | | 02/01 | | e | | tablet | | | | 19 | | | + + + +---------+------+------+-------+ | metoprolol | TAKE 1 TABLET BY | 90 | 3 | 10/2 | | Activ | | succinate | MOUTH DAILY. | tablet | | 09/01 | | e | | (TOPROL-XL) 100 mg | | | | 19 | | | | ER | | | | | | | | tabletIndications: | | | | | | | | Benign essential | | | | | | | | hypertension, | | | | | | | | Persistent | | | | | | | | proteinuria, Status | | | | | | | | post kidney | | | | | | | | transplant, CKD | | | | | | | | (chronic kidney | | | | | | | | disease), stage III | | | | | | | | (HCC), | | | | | | | | Immunosuppression | | | | | | | | (HCC), | | | | | | | | Immunosuppressive | | | | | | | | management encounter | | | | | | | | following kidney | | | | | | | | transplant | | | | | | | + + + +---------+------+------+-------+ | tamsulosin | TAKE 1 CAPSULE | 90 | 3 | 10/2 | | Activ | | (FLOMAX) 0.4 mg | (0.4MG TOTAL) BY | capsule | | 09/01 | | e | | CAPSIndications: | MOUTH DAILY | | | 19 | | | | Benign essential | | | | | | | | hypertension, | | | | | | | | Persistent | | | | | | | | proteinuria, Status | | | | | | | | post kidney | | | | | | | | transplant, CKD | | | | | | | | (chronic kidney | | | | | | | | disease), stage III | | | | | | | | (HCC), | | | | | | | | Immunosuppression | | | | | | | | (HCC), | | | | | | | | Immunosuppressive | | | | | | | | management encounter | | | | | | | | following kidney | | | | | | | | transplant | | | | | | | + + + +---------+------+------+-------+ | tacrolimus | TAKE 3 CAPSULES (3 | 540 | 3 | 10/2 | | Activ | | (PROGRAF) 1 mg | MG TOTAL) BY MOUTH 2 | capsule | | 20 | | e | | capsuleIndications: | TIMES DAILY | | | 19 | | | | Benign essential | | | | | | | | hypertension, | | | | | | | | Persistent | | | | | | | | proteinuria, Status | | | | | | | | post kidney | | | | | | | | transplant, CKD | | | | | | | | (chronic kidney | | | | | | | | disease), stage III | | | | | | | | ([facility]), | | | | | | | | Immunosuppression | | | | | | | | ([facility]), | | | | | | | | Immunosuppressive | | | | | | | | management encounter | | | | | | | | following kidney | | | | | | | | transplant | | | | | | | + + + +---------+------+------+-------+ Active Problems + + + | Problem | Noted Date | + + + | 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 | 08/20/2018 | + + + | Immunosuppression | 2018 | + + + | CKD (chronic kidney disease), stage III | 01/08/2018 | + + + | [...] benign | 01/01/2016 | + + + Encounters +--------+ + + + + | Date | Type | Specialty | Care Team | Description | +--------+ + + + + | 03/06/ | Refill | Nephrology | Alexx Gutierrez MD | Medication Refill | | 2018 | | | | | +--------+ + + + + | 03/01/ | Documentati | Nephrology | Radha Szymanski | Labs Only ([facility] | | 2018 | on | | [facility] | - 02/05/19) | | | | | Heeler Machine | | +--------+ + + + + | 02/25/ | Office | Nephrology | Alexx Gutierrez MD | Kidney replaced by | | 2018 | Visit | | | transplant (Primary | | | | | | Dx); | | | | | | Immunosuppression | | | | | | ([facility]); intermediate project manager | | | | | | (current) use of | | | | | | 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; | | | | | | Vitamin D | | | | | | deficiency; | | | | | | Hyperuricemia; | | | | | | Hypomagnesemia; | | | | | | Persistent | | | | | | proteinuria; CKD | | | | | | (chronic kidney | | | | | | disease), stage III | | | | | | ([facility]); | | | | | | Immunosuppressive | | | | | | management encounter | | | | | | following kidney | | | | | | transplant; | | | | | | Secondary | | | | | | hyperparathyroidism | | | | | | ([facility]); Class 2 | | | | | | obesity due to | | | | | | excess calories | | | | | | without serious | | | | | | comorbidity with | | | | | | body mass index | | | | | | (BMI) of 37.0 to | | | | | | 37.9 in adult; | | | | | | Essential | | | | | | hypertension, benign | +--------+ + + + + | 02/25/ | Orders Only | Nephrology | Alexx Gutierrez MD | Essential | | 2019 | | | | hypertension, benign | | | | | | (Primary Dx); | | | | | | Persistent | | | | | | proteinuria; CKD | | | | | | (chronic kidney | | | | | | disease), stage III | | | | | | (HCC); intermediate project manager | | | | | | (current) use of | | | | | | 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; | | | | | | Immunosuppression | | | | | | ([facility]); Kidney | | | | | | replaced by | | | | | | transplant | +--------+ + + + + | 02/22/ | Orders Only | Nephrology | Radha Szymanski | | | 2018 | | | [facility], [facility] | | | | | | Heeler Machine | | +--------+ + + + + | 02/22/ | Telephone | Nephrology | Radha Szymanski | Other (APPT/LABS | | 2018 | | | V, Medical | REMINDER) | | | | | Heeler Machine | | +--------+ + + + + | 02/18/ | Telephone | Nephrology | Alexx Gutierrez MD | Other (Appointment | | 2018 | | | | reminder call) | +--------+ + + + + from Last 3 Months Family History + + +------+ + | Medical History | Relation | Name | Comments | + + +------+ + | Hypertension | Father | | | + + +------+ + + +------+ + + | Relation | Name | Status | Comments | + +------+ + + | Father | | | | + +------+ + + | Father [...] | + + Last Filed Vital Signs + + + + + | Vital Sign | Reading | Time Taken | Comments | + + + + + | Blood Pressure | 118/70 | 02/25/2019 2:54 PM | | | | | PDT | | + + + + + | Pulse | 78 | 02/25/2019 2:54 PM | | | | | PDT | | + + + + + | Temperature | 36.8 C (98.2 F) | 01/08/2018 2:51 PM | | | | | PDT | [...] + + + + | Weight | 109 kg (240 lb 3.2 | 02/25/2019 2:54 PM | | | | oz) | PDT | | + + + + + | Height | 175.3 cm (5' 9") | 02/25/2019 2:54 PM | | | | | PDT | | + + + + + | Body Mass Index | 35.47 | 02/25/2019 2:54 PM | | | | | PDT | | + + + + + Plan of Treatment +--------+---------+ + + + | Date | Type | Specialty | Care Team | Description | +--------+---------+ + + + | 05/20/ | Office | Nephrology | Alexx Gutierrez MD | | | 2019 | Visit | | [address] [facility] | | | | | | [address] [place] | | | | | | [id number] | | | | | | | | +--------+---------+ + + + + + + + + | Health Maintenance | Due Date | Last Done | Comments | + + + + + | Hepatitis C | | | | | Screening | 0 | | | + + + + + | Vaccine: | 02/04/196 | | | | Pneumococcal 19-64 | 6 | | | | (1 of 3 - PCV13) | | | | + + + + + | Colorectal Cancer | | | | | Screening | 0 | | | | (Colonoscopy) | | | | + + + + + | Vaccine: Zoster (1 | | | | | of 2) | 0 | | | + + + + + | Adult Annual | | | | | Wellness Visit | 9 | | | + + + + + | Vaccine: Influenza | | 01/16/2018, 01/31/2017, | | | (#1) | 9 | 01/29/2016, Additional history | | | | | exists | | + + + + + | Vaccine: | | 10/05/2018, 07/27/2016 | | | Dtap/Tdap/Td (3 - | 9 | | | | Td) | | | | + + + + + Implants + +------+--------+ +--------+--------+--------+ | Implanted | Type | Area | Manufacture | Device | Shelf | Model | | | | | r | | Expira | / | | | | | | Identi | tion | Serial | | | | | | fier | Date | / Lot | + +------+--------+ +--------+--------+--------+ | Graft Gortex Thin Wall Rem | | Left: | [employer] W[employer]uro. | | 06/10/ | [id number] | | Rings Lined [id number] 40cm | | Arm | [employer] & | | 2018 | [id number] | | Ring - | | | ASSOC. | | | | | [id number]: Qty: | | | MEDICAL PRD | | | [id number] | | 1 on 11/05/2013 by Leonardo Dickey | | | | | | [id number] | | MD [place] | | | | | | L | | | | | | | | /[id number] | | | | | | | | 465 | + +------+--------+ +--------+--------+--------+ Procedures + +--------+ + + + | Procedure Name | Priori | Date/Time | Associated Diagnosis | Comments | | | ty | | | | + +--------+ + + + | LABS - EXTERNAL SCAN | | 02/22/2019 | | Results for this | | | | 12:00 AM | | procedure are in the | | | | PDT | | results section. | + +--------+ + + + | LABS - EXTERNAL SCAN | | 02/22/2019 | | Results for this | | | | 12:00 AM | | procedure are in the | | | | PDT | | results section. | + +--------+ + + + | AST | Routin | 02/22/2019 | | Results for this | | | e | | | procedure are in the | | | | | | results section. | + +--------+ + + + | CREATINE KINASE | Routin | 02/22/2019 | | Results for this | | | e | | | procedure are in the | | | | | | results section. | + +--------+ + + + | EXTERNAL LAB: | Routin | 02/22/2019 | | Results for this | | PROTEIN/CREATININE | e | | | procedure are in the | | RATIO | | | | results section. | + +--------+ + + + | RENAL FUNCTION PANEL | Routin | 02/22/2019 | | Results for this | | | e | | | procedure are in the | | | | | | results section. | + +--------+ + + + | MAGNESIUM | Routin | 02/22/2019 | | Results for this | | | e | | | procedure are in the | | | | | | results section. | + +--------+ + + + | ALT | Routin | 02/22/2019 | | Results for this | | | e | | | procedure are in the | | | | | | results section. | + +--------+ + + + | CBC W/AUTO | Routin | 02/22/2019 | | Results for this | | DIFFERENTIAL | e | | | procedure are in the | | | | | | results section. | + +--------+ + + + | TACROLIMUS ([id number]) | Routin | 02/22/2019 | | Results for this | | TROUGH | e | | | procedure are in the | | | | | | results section. | + +--------+ + + + from Last 3 Months Results External Lab: Protein/Creatinine Ratio (02/22/2019) + + + + + + | Component | Value | Ref Range | Performed | Pathologist | | | | | At | Signature | + + + + + + | Protein/Cre | 2,810.6 (A) | 0 - 150 | | | | atinine | | | | | | Ratio, | | | | | | External | | | | | + + + + + + + + | Specimen | + + | | + + CREATINE KINASE (02/22/2019) + +---------+ + + + | Component | Value | Ref Range | Performed | Pathologist | | | | | At | Signature | + +---------+ + + + | CK TOTAL | 257 (A) | 24 - 195 U/L | | | + +---------+ + + + + + | Specimen | + + | Blood | + + LABS - EXTERNAL SCAN (02/22/2019 12:00 AM PDT)Only the most recent of 2 results within the time period is included. + + + | Narrative | Performed At | + + + | Ordered by an | | | unspecified provider. | | + + + ALT (02/22/2019) + +-------+ + + + | Component | Value | Ref Range | Performed | Pathologist | | | | | At | Signature | + +-------+ + + + | ALT | 11 | 7 - 52 U/L | | | + +-------+ + + + + + | Specimen | + + | Blood | + + CBC w/ Auto Differential (02/22/2019) + +---------+ + + + | Component | Value | Ref Range | Performed | Pathologist | | | | | At | Signature | + +---------+ + + + | WBC | 3.7 (A) | 4.5 - 11.0 | | | + +---------+ + + + | RBC COUNT | 5 | 4 - 6 | | | + +---------+ + + + | Hemoglobin | 13.6 | 13.5 - 18.0 | | | + +---------+ + + + | Hematocrit, | 42.3 | 41 - 50 | | | | BF | | | | | + +---------+ + + + | Platelet | 181 | 140 - 440 | | | | Count | | | | | | Plasma | | | | | + +---------+ + + + | NEUTROPHILS | 55.2 | 39 - 80 % | | | | BL | | | | | + +---------+ + + + | LYMPHOCYTES | 30.7 | 24 - 44 % | | | | BL | | | | | + +---------+ + + + | MONOCYTES | 11.1 | 0 - 12 | | | | BAL | | | | | + +---------+ + + + | RDW | 14.7 | 10.5 - 15.0 | | | + +---------+ + + + | MCH | 28 | 27 - 33 | | | + +---------+ + + + | MCHC, POC | 32 | 30 - 36 | | | + +---------+ + + + | EOSINOPHILS | 1.6 | 0 - 6 % | | | | BL | | | | | + +---------+ + + + | BASOPHILS | 1.4 | 0 - 2 | | | | BAL | | | | | + +---------+ + + + | MCV | 88.2 | 81 - 99 | | | + +---------+ + + + + + | Specimen | + + | Blood | + + Tacrolimus ([id number]) Trough (02/22/2019) + +-------+ + + + | Component | Value | Ref Range | Performed | Pathologist | | | | | At | Signature | + +-------+ + + + | Tacrolimus, | 5.4 | | | | | LC-MS/MS, | | | | | | External | | | | | + +-------+ + + + + + | Specimen | + + | Blood | + + AST (02/22/2019) + +--------+ + + + | Component | Value | Ref Range | Performed | Pathologist | | | | | At | Signature | + +--------+ + + + | AST | 11 (A) | 13 - 39 U/L | | | + +--------+ + + + + + | Specimen | + + | Blood | + + Magnesium (02/22/2019) + +---------+ + + + | Component | Value | Ref Range | Performed | Pathologist | | | | | At | Signature | + +---------+ + + + | Magnesium | 1.3 (A) | 1.7 - 2.5 mg/dL | | | + +---------+ + + + + + | Specimen | + + | Blood | + + Renal Function Panel (02/22/2019) + + + + + + | Component | Value | Ref Range | Performed | Pathologist | | | | | At | Signature | + + + + + + | Na | 141 | 132 - 143 | | | | | | mmol/L | | | + + + + + + | K | 4.2 | 3.6 - 5.1 | | | | | | mmol/L | | | + + + + + + | Cl | 104 | 95 - 112 mmol/L | | | + + + + + + | CO2 | 27 | 19 - 31 mmol/L | | | + + + + + + | Anion Gap | 14 | 7 - 21 mmol/L | | | + + + + + + | Glucose | 206 (A) | 70 - 100 mg/dL | | | + + + + + + | BUN | 22 | 6 - 23 mg/dL | | | + + + + + + | Creatinine | 1.70 (A) | 0.70 - 1.33 | | | | | | mg/dL | | | + + + + + + | Estimated | 41.0 (A) | 60.0 - 140.0 | | | | GFR | | mL/min/1.73m2 | | | + + + + + + | BUN/Creatin | 12.9 | 6.0 - 28.6 | | | | ine Ratio | | | | | + + + + + + | Albumin | 3.7 | 3.5 - 5.0 g/dL | | | + + + + + + | Calcium | 9.0 | 8.5 - 10.3 | | | + + + + + + | Phosphorus, | 3.4 | 2.5 - 5.0 | | | | External | | | | | + + + + + + + + | Specimen | + + | Blood | + + from Last 3 Months Insurance + +--------+ +--------+ +---------+--------+ | Payer | Benefi | Subscriber | Effect | Phone | Address | Type | | | t Plan | ID | jayna | | | | | | / | | Dates | | | | | | Group | | | | | | + +--------+ +--------+ +---------+--------+ | MEDICARE | MEDICA | [id number] | 01/14/20 | [phone] | | Medica | | | RE | | 11-Pre | 5 | | re | | | PART A | | sent | | | | | | AND B | | | | | | + +--------+ +--------+ +---------+--------+ | MEDICARE | MEDICA | [id number] | 01/14/20 | [phone] | | Medica | | | RE | | 11-Pre | 5 | | re | | | PART A | | sent | | | | | | AND B | | | | | | + +--------+ +--------+ +---------+--------+ | [employer] | [employer] | [id number] | 02/25/ | [phone] | | Medica | | MEDICAID HMO | HEALTH | | 2019-P | 1 | | id | | | MDCD | | resent | | | | | | [place]MO [place] | | | | | | + +--------+ +--------+ +---------+--------+ + +--------+ +--------+ + + | Guarantor Name | Accoun | Relation to | Date | Phone | Billing Address | | | t Type | Patient | of | | | | | | | | | | + +--------+ +--------+ + + | Nik Ma | Person | Self [birth year] | [address] | | | al/Fam | | 1961 | [phone] | [place] | | | alexsandra | | | [address] ([place]) | [address] | + +--------+ +--------+ + + | Nik Ma | Third | Self | [birth year] | [address] | | | Constitution Party | | 1961 | [phone] | [place] | | | Liabil | | | [address] ([place]) | [address] | | | ity | | | | | + +--------+ +--------+ + + Advance Directives + + + + + | Type | Date Recorded | Patient | Explanation | | | | Bookkeeping Clerk | | + + + + + | Power of | | | | | Roller Stitcher | | | | + + + + + | Advance | | | | | Directive | | | | + + + + +
--- OUTSIDE RECORDS SUMMARY | ~2019-05-09 | XMS | Encounter Summary ---
Demographics + + + | Address | [address] | | | [place] [address] | + + + | Home Phone [...] + | Author | [facility] | | | and [place] | + + + | Organization | [facility] | | | [...] Team Providers + +------+ + | Care Aircraft Communicator Name | Role | Phone | + +------+ + | Oziel Michael MD | PCP | | + +------+ + Encounter Details +--------+---------+ + + + | Date | Type | Department | Care Team | Description | +--------+---------+ + + + | 02/25/ | Office | [facility] | Alexx Gutierrez MD | Kidney replaced by | | 2019 | Visit | NEPHROLOGY [place] | [address] [place] | transplant (Primary | | | | [address] | [address] [facility], [place] | Dx); | | | | [address] | [id number] | Immunosuppression | | | | [place], [place] | | ([facility]); [facility] | | | | [address] | | (current) use of | | | | [phone] | | 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; | | | [...] | | | ([facility]); | | | | | | Immunosuppressive | | | | | | management encounter | | | | | | following kidney | | | | | | transplant; | | | | | | Secondary | | | | | | hyperparathyroidism | | | | | | ([facility]); Class 2 | | | | | [...] | | | | hypertension, benign | +--------+---------+ + + + Social History + +-------+ [...] + + + + | Temperature | - | - | | + + + + + | Respiratory Rate | - | - | | + [...] + + + documented in this encounter Patient Instructions Patient Instructions Alexx Gutierrez MD - 02/25/2019 2:30 PM PDTDiscussions/Recommendations : I discussed today with Mr. Ma the meaning of his CKD and the interaction of that w ith his hypertension & obesity. I stressed the importance of keeping his BP controlled and avoiding getting dehydrated i f we are to have a chance at helping preserve his renal function. he showed good understand ing. I gave him instructions on how to chart his blood pressure in the appropriate manner at home; he is to call us if they fall outside of the optimal provided range. he will bring his sphygmomanometer for validation once a year. he will strictly abide by a low salt, low cholesterol, low purine diet. He will avoid all kinds of NSAIDs for analgesia. Screening/Prevention Recommendations: FLU SHOT: NEETA PNEUMOVAX: Received 08/2015 Tdap: Received 07/2016 DERMATOLOGY: 03/2019 DEXA SCAN: 04/2019 COLONOSCOPY: In 2021 DENTIST: every 6 months PSA: 08/2020 ASSISTANT BASKETBALL COACH/MAMMOGRAM: N/A HbA1c 6.8% on 07/25/16 IMMUNOSUPPRESSION: Adequate Also: I sent him for his yearly Dermatology check in 03/2019. I sent him for a DEXA scan in 04/2019 ([facility] (current) use of 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). He will see the Kidney Transplant team in 03/2019. He will bring me back his home weight & BP charts if they fall outside of the optimal pr ovided range. At that time, I will decide whether any changes to his vasoactive regimen are warranted. I advised him to exercise regularly but safely & to try to lose weight methodically; He voi indra good understanding. He will F/U with your office regularly, especially for the management of his high BG's. He will bring back his meds bottles every time he comes back to visit with us. Screening/Prevention Recommendations as above. He will have a RFP, Magnesium, CBC, AST/ALT, CPK, a 12-hour Tacrolimus level, reflex uri nalysis, Urine total scqibqi-kt-pagpahpfmd ratio before he comes back in 3 months (he will s ee the K Tx team in [place] in 03/2019).Electronically signed by Alexx Gutierrez MD at 2018 3:14 PM PDT documented in this encounter Progress Notes Alexx Gutierrez MD - 02/25/2019 2:30 PM PDT Patient Active Problem List Diagnosis Date Noted POA [facility] (current) use of 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 08/20/2018 Unknown Priority: Medium Immunosuppression 2018 Unknown Priority: Medium Kidney replaced by transplant 08/01/2016 Unknown Priority: Medium Immunosuppressive management encounter following kidney transplant 05/30/2016 Unknown Priority: Medium Essential hypertension, benign 01/01/2016 Unknown Priority: Medium CKD (chronic kidney disease), stage III 01/08/2018 Unknown Hyperuricemia 07/01/2016 Unknown Hypomagnesemia 07/01/2016 Unknown Hypophosphatemia 07/01/2016 Unknown Class 2 obesity due to excess calories without serious comorbidity with body mass index (BMI) of 37.0 to 37.9 in adult 05/30/2016 Unknown Dyslipidemia 05/30/2016 Unknown Persistent proteinuria 05/30/2016 Unknown Elevated ferritin level 05/30/2016 Unknown 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 Ma in the office for his kidney transplant, today. As you are familiar with his case, I will not state his past history in detail. Briefly, he is a 58 y .o. male patient with past history as delineated above; he is here to F/U on his transplant ed kidney and its associated complications. He has an ABMR (biopsied 03/2018 for worsening proteinuria); per the Kidney Transplant team 's notes, treated with: "- Pulse steroid with solumedrol 500mg IV daily x 3 doses - IVIG 1g/kg every 2 weeks x 6 doses - Rituximab 375 mg/m2 x 1 dose two weeks after last IVIG dose - Increase MMF to 750mg BID and tacrolimus to 3mg BID - Restart fluconazole 50mg daily x 2 months - Omeprazole 20mg daily until prednisone back at 5mg daily " He had ESRD, hypertensive; was on HD for 5 years. He had his -donor, standard crite tae kidney transplant on 02/19/16. PRA 2; negative x-match. Cold ischemia time: 22 hours. Pos itive donor & recipient for CMV; positive recipient for EBV. transplanted in the right iliac fossa. Did not need dialysis post-op; had a mild transient urinary retention; was hospitali zed for 7 days initially; rehospitalized for 6 days in late 03/2016 for SVT with pulmonary c ongestion, and pyuria/UTI. Immunosuppression was with Thymoglobulin, Tacrolimus, MMF & Predn isone. BK virus +ve in the urine at 2 & 3 months post-transplant; +ve in the blood at 3 months. he says that he feels 'good ' today. he denies any blurred vision tinnitus, headache, feve r, chills, or cough. No nausea, vomiting, abdominal pain, diarrhea, melena, or hematochezia . No chest pain, palpitation, dizziness, loss of consciousness, orthopnea, paroxysmal noctu rnal dyspnea, or leg edema. No dysuria, hematuria, incontinence, or symptoms of UTI; he bynum s 0-1 nightly nocturia. No history of passing kidney stones. The following portions of the patient's history were reviewed and updated as appropriate: a llergies, current medications, past medical history, past social history, past surgical hist ory, family history and problem list. As in History of Present Illness & in Assessment. All the pertinent systems were reviewed a nd were otherwise negative. Current Outpatient Medications: allopurinol (ZYLOPRIM) 100 mg tablet, take 1 tablet by mouth once daily, Disp: 30 tabl et, Rfl: 11 atorvaSTATin (LIPITOR) 10 mg tablet, , Disp: , Rfl: 0 Calcium Carbonate 260 MG CHEW, Take 200 mg by mouth., Disp: , Rfl: Cholecalciferol (VITAMIN D-3 PO), Take 1 tablet by mouth., Disp: , Rfl: cinacalcet (SENSIPAR) 60 MG tablet, TAKE 1 TABLET BY MOUTH DAILY., Disp: 30 tablet, Rf l: 11 dilTIAZem (CARDIZEM CD) 120 mg 24 hr capsule, Take 120 mg by mouth daily., Disp: , Rfl : finasteride (PROSCAR) 5 mg tablet, TAKE 1 TABLET BY MOUTH DAILY., Disp: 90 tablet, Rfl : 3 lisinopril (PRINIVIL, ZESTRIL) 10 mg tablet, take 1 tablet by mouth once daily, Disp: 30 tablet, Rfl: 11 lisinopril (PRINIVIL,ZESTRIL) 40 MG tablet, take 1 tablet by mouth once daily, Disp: 3 0 tablet, Rfl: 11 magnesium chloride (MAGDELAY) 70 mg EC tablet, Take 1 tablet by mouth 2 (two) times da alexsandra., Disp: , Rfl: metoprolol succinate (TOPROL-XL) 100 mg ER tablet, TAKE 1 TABLET BY MOUTH DAILY., Disp : 90 tablet, Rfl: 3 mycophenolate (CELLCEPT) 250 mg capsule, Take 3 capsules by mouth 2 (two) times daily. , Disp: 540 capsule, Rfl: 3 predniSONE (DELTASONE) 5 mg tablet, TAKE 1 TABLET BY MOUTH DAILY., Disp: 30 tablet, Rf l: 11 simethicone (MYLICON) 80 mg chewable tablet, Take 1 tablet by mouth every 6 (six) hour s as needed for Flatulence., Disp: 90 tablet, Rfl: 3 tacrolimus (PROGRAF) 1 mg capsule, TAKE 3 CAPSULES (3 MG TOTAL) BY MOUTH 2 TIMES DAILY , Disp: 270 capsule, Rfl: 3 tamsulosin (FLOMAX) 0.4 mg CAPS, TAKE 1 CAPSULE (0.4MG TOTAL) BY MOUTH DAILY, Disp: 90 capsule, Rfl: 3 valGANciclovir (VALCYTE) 450 mg tablet, Take 450 mg by mouth daily., Disp: , Rfl: Physical Exam: BP 118/70 | Pulse 78 | Ht 1.753 m (5' 9") | Wt 109 kg (240 lb 3.2 oz) | BMI 35.47 kg/m General appearance: Pleasant, not in acute distress. Neck: Supple without tracheal deviation or jugular venous distension. Head and ENT: Head is atraumatic. The oropharynx is without erythema or thrush. Eyes: Anicteric. The extraocular muscle movements are normal. Lungs: Clear to auscultation bilaterally. There are no wheezes. Heart: Regular rate and rhythm without any rub, gallop. Late systolic murmur all over prec ordium. Abdominal exam: Obese. Soft and nontender with normal bowel sounds. RLQ scar of surgery. Musculoskeletal: No costovertebral angle tenderness bilaterally. Extremities: Warm to touch with no significant leg edema. There is no cyanosis. Good thri ll in the left arm AVF. Skin: There are no rashes, petechiae, or ecchymosis. Neurological: Awake, alert, and oriented to time, place, and person. Normal gross motor po wer. There is no asterixis. Psychiatric: The patient s behavior is normal. Judgment and thought content are normal. *I also reviewed with him his labs from 02/22/19. Lab Results Component Value Date BUN 26 (A) 11/30/2018 CREATININE 1.78 (A) 11/30/2018 EGFR 39 (A) 11/30/2018 NA 142 11/30/2018 K 4.2 11/30/2018 CL 103 11/30/2018 CO2 27 11/30/2018 CA 8.9 11/30/2018 PHOS 2.8 11/30/2018 MG 1.2 (A) 11/30/2018 ALB 3.9 11/30/2018 HGB 14.3 11/30/2018 URICACID 7.6 01/04/2017 WBC 3.6 (A) 11/30/2018 HCT 4.8 (A) 11/30/2018 FERRITIN 702.5 (A) 05/27/2016 LABIRON 26.5 06/27/2016 LABPROT 2,928.1 (A) 11/30/2018 NFIL82NTCGB 29 (A) 06/01/2018 *quantitative BK virus DNA in the blood by PCR on 06/27/16: negative *12-Hr Prograf level: 05/20/16: 4.1; 06/27/16: 5.3; 07/25/16: 4.8; 09/21/16: 5.1; 12/01/16: 4.6; 01/04/17: 4.8; 7: 6.4. 06/28/17: 7.5; 09/21/17: 2.7; 01/04/18: 7.3; 6.2 on 01/10/18; 15.7 on 06/01/18; 11.3 on 06/13/18; 7.5 on 06/29/18; 6.2 on 08/07/18; 5.4 on Assessment: Mr. Ma is a 58 y.o. male patient with a -donor, standard criteria kidney sims splant on 02/19/16. He had ESRD, hypertensive; was on HD for 5 years. He had his -donor, standard crite tae kidney transplant on 02/19/16. PRA 2; negative x-match. Cold ischemia time: 22 hours. Pos itive donor & recipient for CMV; positive recipient for EBV. transplanted in the right iliac fossa. Did not need dialysis post-op; had a mild transient urinary retention; was hospitali zed for 7 days initially. rehospitalized for 6 days in late 03/2016 for SVT with pulmonary c ongestion, and pyuria/UTI. Immunosuppression was with Thymoglobulin, Tacrolimus, MMF & Predn isone. BK virus +ve in the urine at 2 & 3 months post-transplant; +ve in the blood at 3 months. RENAL FUNCTION: Slightly lower vs early 2017; his undjusted GFR had been steady in the 38 -49 range since transplant BLOOD PRESSURE: Better controlled vs historically BLOOD SUGAR: Abnormal ELECTROLYTES: Mild hypoMag; minimal hypophosphatemia is better HEM: No anemia or thrombocytopenia. Mild leucopenia now VITAMIN D: Deficient. Mildly so now with the suppl PARATHYROID HORMONE: Mildly up URIC ACID: Hyperuricemia is better with treatment PROTEINURIA: Mild URINALYSIS: No UTI or hematuria VOLUME STATUS: Euvolumic. Discussions/Recommendations: I discussed today with Mr. Ma the meaning of his CKD and the interaction of that w ith his hypertension & obesity. I stressed the importance of keeping his BP controlled and avoiding getting dehydrated i f we are to have a chance at helping preserve his renal function. he showed good understand ing. I gave him instructions on how to chart his blood pressure in the appropriate manner at home; he is to call us if they fall outside of the optimal provided range. he will bring his sphygmomanometer for validation once a year. he will strictly abide by a low salt, low cholesterol, low purine diet. He will avoid all kinds of NSAIDs for analgesia. Screening/Prevention Recommendations: FLU SHOT: NEETA PNEUMOVAX: Received 08/2015 Tdap: Received 07/2016 DERMATOLOGY: 03/2019 DEXA SCAN: 04/2019 COLONOSCOPY: In 2021 DENTIST: every 6 months PSA: 08/2020 ASSISTANT BASKETBALL COACH/MAMMOGRAM: N/A HbA1c 6.8% on 07/25/16 IMMUNOSUPPRESSION: Adequate Also: I sent him for his yearly Dermatology check in 03/2019. I sent him for a DEXA scan in 04/2019 ([facility] (current) use of 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). He will see the Kidney Transplant team in 03/2019. He will bring me back his home weight & BP charts if they fall outside of the optimal pr ovided range. At that time, I will decide whether any changes to his vasoactive regimen are warranted. (no need to uptitrate his Lisinopril beyond 40 mg daily). I advised him to exercise regularly but safely & to try to lose weight methodically; He voi indra good understanding. He will F/U with your office regularly, especially for the management of his high BG's. He will bring back his meds bottles every time he comes back to visit with us. Screening/Prevention Recommendations as above. He will have a RFP, Magnesium, CBC, AST/ALT, CPK, a 12-hour Tacrolimus level, reflex uri nalysis, Urine total nocsqvy-ut-gpmmnkkasc ratio before he comes back in 3 months (he will s ee the K Tx team in [place] in 03/2019). Thank you Isrrael for the opportunity to see this high-complexity renal transplant patient in F/U today. Please do not hesitate to call me at any time with questions or concerns. Truly yours, Alexx Gutierrez MD [facility] documented in this enco unter Plan of Treatment +--------+---------+ + + + | Date | Type | Specialty | Care Team | Description | +--------+---------+ + + + | 05/20/ | Office | Nephrology | Alexx Gutierrez MD | | | 2019 | Visit | | [address] [facility] | | | | | | [address] [place] | | | | | | [address] | | | | | | | | +--------+---------+ + + + documented as of this encounter Visit Diagnoses + + | Diagnosis | + + | Kidney replaced by transplant - Primary | + + | Immunosuppression (HCC) Unspecified disorder of immune mechanism | + + | watermelon inspector (current) use of 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 | + + | Vitamin D deficiency Unspecified vitamin D deficiency | + + | Hyperuricemia Other abnormal blood chemistry | + + | Hypomagnesemia Disorders of magnesium metabolism | + + | Persistent proteinuria Proteinuria | + + | CKD (chronic kidney disease), stage III (HCC) Chronic kidney disease, Stage III | | (moderate) | + + | Immunosuppressive management encounter following kidney transplant Encounter for | | long-term (current) use of other medications | + + | Secondary hyperparathyroidism (HCC) Secondary hyperparathyroidism (of renal origin) | + + | Class 2 obesity due to excess calories without serious comorbidity with body mass | | index (BMI) of 37.0 to 37.9 in adult | + + | Essential hypertension, benign | + + documented in this encounter
--- OUTSIDE RECORDS SUMMARY | ~2019-05-09 | XMS | Encounter Summary ---
Demographics + + + | Address | [address] | | | [place] [address] | + + + | Home Phone | | + + + | Preferred Language | Unknown | + + + | Marital Status | Unknown | + + + | Gnosticism Affiliation | Unknown | + + + | Race | Unknown | + + + | Ethnic Group | Unknown | + + + Author + + + | Author | [facility] | | | and [place] | + + + | Organization | [facility] | | | and [...] Team Providers + +------+ + | Care Hotel Administrative Assistant Name | Role | Phone | + +------+ + PCP | Unavailable | + +------+ + Encounter Details +--------+ + + + + | Date | Type | Department | Care Team | Description | +--------+ + + + + | 12/05/ | Orders Only | [facility] | Conversion | | | 2018 | | NEPRHOLOGY [place] | Transaction, | | | | | [address] | Provider Unknown | | | | | [address] [place], [place] | | | | | | [address] | | | | | | [phone] | | | +--------+ + + + [...] 2019 | Visit | | [address] [facility] | | | | | | [address] [place], [place] | | | | | | [address] | | | | | | | [...]
--- OUTSIDE RECORDS SUMMARY | ~2019-05-09 | XMS | Encounter Summary ---
Demographics + + + | Address | [address] | | | [place] [address] | + + + | Home Phone [...] Author + + + | Author | [facility] | + + [...] Team Providers + +------+ + | Care Bat Lathe Operator Name | Role | Phone | [...] | | | | | [address] Nunes [place], | | | | | | [place] [address] | | | +--------+ + + + [...] [facility] - | [address] | [place] [address] | | | IMMUNOGENETICS/TRANS | [address] | | | | PLANT LAB[facility] | | | | + + + + + documented in this encounter Visit Diagnoses Not on filedocumented in this encounter"
--- OUTSIDE RECORDS SUMMARY | ~2019-05-09 | XMS | Encounter Summary ---
Demographics + + + | Address | [address] | | | [place] [address] | + + + | Home Phone | | + + + | Preferred Language | Unknown | + + + | Marital Status | Single | + + + | Christianity Affiliation | Unknown | + + + | Race | Black or | + + + | Ethnic Group | Not or | + + + Author + + + | Author | [facility] | + + + | [...] Team Providers + +------+ + | Care Pier Master Name | Role | Phone | + [...] | | | | | [address]lande Nunes [place], | | | | | | [place] [address] | | | +--------+ + + + [...] [facility] - | [address] | [place] [address] | | | IMMUNOGENETICS/TRANS | [address] | | | | PLANT LAB[facility]ATORY | | | | + + + + + documented in this encounter Visit Diagnoses Not on filedocumented in this encounter"
--- OUTSIDE RECORDS SUMMARY | ~2019-05-09 | XMS | Encounter Summary ---
Demographics + + + | Address | [address] | | | [place] [address] | + + + | Home Phone | | + + + | Preferred Language | Unknown | + + + | Marital Status | Unknown | + + + | Mormon Affiliation | Unknown | + + + | Race | Unknown | + + + | Ethnic Group | Unknown | + + + Author + + + | Author | [facility] | | | and [place] | + + + | Organization | [facility] | | [...] Team Providers + +------+ + | Care Records Management Associate Name | Role | Phone | + +------+ + | Oziel Michael MD | PCP | | + +------+ + Encounter Details +--------+ + + + + | Date | Type | Department | Care Team | Description | +--------+ + + + + | 08/30/ | Orders Only | [facility] | Alexx Gutierrez MD | | | 2017 | | NEPRHOLOGY [place] | [address] | | | | | [address] | [address] [place], [place] | | | | | [address] [place], [place] | [address] | | | | | [address] | | | | | | [phone] | | | +--------+ + + + [...] 2020 | Visit | | [address] [facility] | | | | | | [address] [place] | | | | | | [address] | | | | | | | | +--------+---------+ + + + documented as of this encounter Visit Diagnoses Not on filedocumented in this encounter"
--- OUTSIDE RECORDS SUMMARY | ~2019-05-09 | XMS | Encounter Summary ---
Demographics + + + | Address | [address] | | | [place] [address] | + + + | Home Phone | | + + + | Preferred Language | Unknown | + + + | Marital Status | Unknown | + + + | Yarsanism Affiliation | Unknown | + + + | Race | Unknown | + + + | Ethnic Group | Unknown | + + + Author + + + | Author | [facility] | | | and [place] | + + + | Organization | [facility] | | [...] Team Providers + +------+ + | Care Lead Radiologic Technologist Name | Role | Phone | + +------+ + | Oziel Michael MD | PCP | | + +------+ + Encounter Details +--------+ + + + + | Date | Type | Department | Care Team | Description | +--------+ + + + + | 12/16/ | Orders Only | [facility] | Alexx Gutierrez MD | | | 2013 | | NEPHROLOGY [place] | [address] [place] | | | | | [address] [place] | [address] [place], [place] | | | | | [address] [place], [place] | [address] | | | | | [address] | | | | | | [phone] | | | +--------+ + + + [...] 2020 | Visit | | [address] [facility] | | | | | | [address] [place] | | | | | | [address] | | | | | | | [...]
--- OUTSIDE RECORDS SUMMARY | ~2019-05-09 | XMS | Encounter Summary ---
Demographics + + + | Address | [address] | | | [place] [address] | + + + | Home Phone [...] Team Providers + +------+ + | Care Quality Assurance Associate Name | Role | Phone | + +------+ + | Oziel Michael MD | PCP | | + +------+ + Encounter Details +--------+ + + + + | Date | Type | Department | Care Team | Description | +--------+ + + + + | 10/16/ | Orders Only | [facility] | Alexx Gutierrez MD | | | 2019 | | NEPRHOLOGY [place] | [address] | | | | | [address] | [address] [place], [place] | | | | | [address] [place], [place] | [address] | | | | | [address] | | | | | | [phone] | | | +--------+ + + + [...] 2020 | Visit | | [address] [facility] | | | | | | [address] [place] [address] | | | | | | [address] | | | | | | | | +--------+---------+ + + + documented as of this encounter Visit Diagnoses Not on filedocumented in this encounter"
--- OUTSIDE RECORDS SUMMARY | ~2019-05-09 | XMS | Encounter Summary ---
Demographics + + + | Address | [address] | | | [place] [address] | + + + | Home Phone [...] Author + + + | Author | [facility] | + + + [...] Team Providers + +------+ + | Care Code And Test Clerk Name | Role | Phone | [...] | | | | | [address] [place], | | | | | | [place] [address] | | | +--------+ + + + [...] + + + | [facility] - | [address] | [place] [address] | | | IMMUNOGENETICS/TRANS | [address] | | | | PLANT LAB[facility]ATORY | | | | + + + + + documented in this encounter Visit Diagnoses Not on filedocumented in this encounter"
--- OUTSIDE RECORDS SUMMARY | ~2019-05-09 | XMS | Encounter Summary ---
Demographics + + + | Address | [address] | | | [place] [address] | + + + | Home Phone | | + + + | Preferred Language | Unknown | + + + | Marital Status | Unknown | + + + | Taoist Affiliation [...] Team Providers + +------+ + | Care Stoker Erector And Servicer Name | Role | Phone | + +------+ + PCP | Unavailable | + +------+ + Encounter Details +--------+ + + + + | Date | Type | Department | Care Team | Description | +--------+ + + + + | 08/22/ | Hospital | [facility] | Conversion | Pain | | 2014 | Encounter | CONVERSION [address] | Transaction, | | | | | [address] | Provider Unknown | | | | | [place], [place] | [phone] | | | | | [address] | | | | | | [phone] | | | +--------+ + + + [...] 2020 | Visit | | [address] [facility] | | | | | | [address] [facility] | | | | | | [address] | | | | | | | [...]
--- OUTSIDE RECORDS SUMMARY | ~2019-05-09 | XMS | Encounter Summary ---
Demographics + + + | Address | [address] | | | [place] [address] | + + + | Home Phone | | + + + | Preferred Language | Unknown | + + + | Marital Status | Single | + + + | Spiritism Affiliation | Unknown | + + + | Race | Black or | + + + | Ethnic Group | Not or | + + + Author + + + | Author | [facility] | + + + | Organization | [facility] | + + + | Address | Unknown | + + + | Phone | Unavailable | + + + Support + + +---------+ + | Name | Relationship | Address | Phone | + + +---------+ + | Olesya Lamb | ECON | Unknown | | + + +---------+ + Care Team Providers + +------+ + | Care Spray Drier Operator Helper Name | Role | Phone | [...] | | | | | [place], | | | | | | [place] [address] | | | +--------+ + + + [...] [facility] - | [address] | [place] [address] | | | IMMUNOGENETICS/TRANS | [address] | | | | [facility] LAB[facility] | | | | + + + + + documented in this encounter Visit Diagnoses Not on filedocumented in this encounter"
--- OUTSIDE RECORDS SUMMARY | ~2019-05-09 | XMS | Encounter Summary ---
Demographics + + + | Address | [address] | | | [place] [address] | + + + | Home Phone [...] + | Author | [facility] | + + + | Organization | [facility] | + + + | Address | Unknown | + + + | Phone | Unavailable | + + + Support + + +---------+ + | Name | Relationship | Address | Phone | + + +---------+ + | Olesya Lamb | ECON | Unknown | | + + +---------+ + Care Team Providers + +------+ + | Care High Pressure Kettle Operator Name | Role | Phone | + +------+ + | Oziel Michael MD | PCP | | + +------+ + Encounter Details +--------+ + + + + | Date | Type | Department | Care Team | Description | +--------+ + + + + | 01/20/ | Lab | LAB IMMUNOGENETIC | | | | 2014 | Requisition | [facility]PLANT LAB | | | | | | [address] | | | | | | [place], | | | | | | [place] [address] | | | +--------+ + + + [...] FLOW HLA AB PRA | Routin | 01/20/2015 | | | | SCREEN I/II | e | 2:54 PM | | | | | | PDT | | | + +--------+ + + + documented in this encounter Results LIT FLOW HLA AB PRA SCREEN I/II (01/20/2015 2:54 PM PDT) + + | Specimen | + + | Blood - Blood | | (substance) | + + + + + + + | Performing | Address | City/State/Zipcode | Phone Number | | Organization | | | | + + + + + | [facility] - | [address] | [place] [address] | | | IMMUNOGENETICS/TRANS | [address] | | | | PLANT LAB[facility]ATORY | | | | + + + + + documented in this encounter Visit Diagnoses Not on filedocumented in this encounter"
--- OUTSIDE RECORDS SUMMARY | ~2019-05-09 | XMS | Encounter Summary ---
Demographics + + + | Address | [address] | | | [place] [address] | + + + | Home Phone [...] Team Providers + +------+ + | Care Sas Programmer Analyst Name | Role | Phone | + +------+ + PCP | Unavailable | + +------+ + Encounter Details +--------+ + + + + | Date | Type | Department | Care Team | Description | +--------+ + + + + | 10/31/ | Hospital | [facility] | Conversion | | | 2014 | Encounter | [facility] | Transaction, | | | | | CLINIC [address] | Provider Unknown | | | | | [place], [place] | | | | | | [address] | (Fax) | | | | | [phone] | | | +--------+ + + + [...] 2020 | Visit | | [address] [facility] | | | | | | [address] [facility] | | | | | | [address] | | | | | | | | +--------+---------+ + + + documented as of this encounter Procedures + +--------+ + + + | Procedure Name | Priori | Date/Time | Associated Diagnosis | Comments | | | ty | | | | + +--------+ + + + | EXTERNAL LAB: CBC | Routin | 10/31/2013 | | Results for this | | | e | 7:45 AM | | procedure are in the | | | | PDT | | results section. | + +--------+ + + + | MRSA NAAT | Timed | 10/31/2013 | | Results for this | | | | 7:45 AM | | procedure are in the | | | | PDT | | results section. | + +--------+ + + + | PTT | Routin | 10/31/2013 | | Results for this | | | e | 7:45 AM | | procedure are in the | | | | PDT | | results section. | + +--------+ + + + | PROTIME INR | Routin | 10/31/2013 | | Results for this | | | e | 7:45 AM | | procedure are in the | | | | PDT | | results section. | + +--------+ + + + | TYPE AND SCREEN | Routin | 10/31/2013 | | Results for this | | | e | 7:45 AM | | procedure are in the | | | | PDT | | results section. | + +--------+ + + + | BASIC METABOLIC | Routin | 10/31/2013 | | Results for this | | PANEL | e | 7:45 AM | | procedure are in the | | | | PDT | | results section. | + +--------+ + + + | ECG 12 LEAD | Routin | 10/31/2013 | | Results for this | | | e | 7:22 AM | | procedure are in the | | | | PDT | | results section. | + +--------+ + + + documented in this encounter Results Type and Screen (10/31/2013 7:45 AM PDT) + + + + + [...] | | EXTERNAL | | | | [facility];[address] | | LAB | | | | [address];[place] [address] | | | | + + + + + + | Antibody | NEGATIVE | | EXTERNAL | | | Screen | | | LAB | | + + + + + + | Antibody | Testing performed at | | EXTERNAL | | | Screen | [facility];[address] | | LAB | | | | [address];[place] [address] | | | | + + + + + + + + | Specimen | + + | Blood specimen | | (specimen) | + + + +---------+ + + | Performing | Address | City/State/Zipcode | Phone Number | | Organization | | | | + +---------+ + + | EXTERNAL LAB | | | | + +---------+ + + PTT (10/31/2013 7:45 AM PDT) + + + + + + | Component | Value | Ref Range | Performed | Pathologist | | | | | At | Signature | + + + + + + | aPTT, | 28Comment: Testing | 23 - 32 seconds | EXTERNAL | | | Patient | performed at [facility];[address] | | LAB | | | | [address];[place], [place] | | | | | | [address] | | | | + + + + + + + + | Specimen | + + | Blood specimen | | (specimen) | + + + +---------+ + + | Performing | Address | City/State/Zipcode | Phone Number | | Organization | | | | + +---------+ + + | EXTERNAL LAB | | | | + +---------+ + + Protime INR (10/31/2013 7:45 AM PDT) + + + + + [...] | | | | | performed at [facility] | | | | | | [facility];[place], [place] | | | | | | [address] | | | | + + + [...] + +---------+ + + External Lab: CBC (10/31/2013 7:45 AM PDT) + + + + + + | Component | Value | Ref Range | Performed | Pathologist | | | | | At | Signature | + + + + + + | WBC | 3.2 (L)Comment: Testing | 3.8 - 11.0 K/uL | EXTERNAL | | | | performed at [facility], [address] | | LAB | | | | [address], | | | | | | [place] [address] | | | | + + + + + + | RED CELL | 3.94 (L)Comment: Testing | 4.20 - 5.70 | EXTERNAL | | | COUNT | performed at [facility], [address] | M/uL | LAB | | | | [address], | | | | | | [place] [address] | | | | + + + + + + | Hgb | 12.1 (L)Comment: Testing | 13.2 - 17.0 | EXTERNAL | | | | performed at [facility], [address] | g/dL | LAB | | | | [address], | | | | | | [place] [address] | | | | + + + + + + | Hematocrit, | 36.4 (L)Comment: Testing | 39.0 - 50.0 % | EXTERNAL | | | POC | performed at [facility], [address] | | LAB | | | | [address], | | | | | | [place] [address] | | | | + + + + + + | MCV | 92.6Comment: Testing | 80.0 - 100.0 fl | EXTERNAL | | | | performed at [facility], [address] | | LAB | | | | [address], | | | | | | [place] [address] | | | | + + + + + + | MCH | 30.7Comment: Testing | 27.0 - 34.0 pg | EXTERNAL | | | | performed at [facility], [address] | | LAB | | | | [address], | | | | | | [place] [address] | | | | + + + + + + | MCHC | 33.2Comment: Testing | 32.0 - 35.5 | EXTERNAL | | | | performed at [facility], [address] | g/dL | LAB | | | | [address], | | | | | | [place] [address] | | | | + + + + + + | RDW-CV | 50.3Comment: Testing | 37 - 53 fl | EXTERNAL | | | | performed at [facility], [address] | | LAB | | | | [address], | | | | | | [place] [address] | | | | + + + + + + | Platelet | 215Comment: Testing | 150 - 400 K/uL | EXTERNAL | | | Count | performed at [facility], [address] | | LAB | | | Plasma | [address], | | | | | | [place] [address] | | | | + + + + + + | MPV | 9.2Comment: Testing | fl | EXTERNAL | | | | performed at [facility], [address] | | LAB | | | | [address], | | | | | | [place] [address] | | | | + + + + + + | Differentia | AUTOMATEDComment: | | EXTERNAL | | | l Type | Testing performed at | | LAB | | | | [facility], [address] | | | | | | [place] | | | | | | [address] | | | | + + + + + + | % Segmented | 48.5Comment: Testing | % | EXTERNAL | | | | performed at [facility], [address] | | LAB | | | Neutrophils | [address], | | | | | | [place] [address] | | | | + + + + + + | % | 37.6Comment: Testing | % | EXTERNAL | | | Lymphocytes | performed at [facility], [address] | | LAB | | | | [address], | | | | | | [place] [address] | | | | + + + + + + | % Monocytes | 9.2Comment: Testing | % | EXTERNAL | | | | performed at [facility], [address] | | LAB | | | | [address], | | | | | | [place] [address] | | | | + + + + + + | % | 3.6Comment: Testing | % | EXTERNAL | | | Eosinophils | performed at [facility], [address] | | LAB | | | | [address], | | | | | | [place] [address] | | | | + + + + + + | % Basophils | 1.1Comment: Testing | % | EXTERNAL | | | | performed at [facility], [address] | | LAB | | | | [address], | | | | | | [place] [address] | | | | + + + + + + | Absolute | 1.6 (L)Comment: Testing | 1.9 - 7.4 K/uL | EXTERNAL | | | Segmented | performed at [facility], [address] | | LAB | | | Neutrophils | [address], | | | | | | [place] [address] | | | | + + + + + + | Absolute | 1.2Comment: Testing | 1.0 - 3.9 K/uL | EXTERNAL | | | Lymphocytes | performed at [facility], [address] | | LAB | | | | [address], | | | | | | [place] [address] | | | | + + + + + + | Absolute | 0.3Comment: Testing | 0 - 0.8 K/uL | EXTERNAL | | | Monocytes | performed at [facility], [address] | | LAB | | | | [address], | | | | | | [place] [address] | | | | + + + + + + | Absolute | 0.1Comment: Testing | 0 - 0.5 K/uL | EXTERNAL | | | Eosinophils | performed at [facility], [address] | | LAB | | | | [address], | | | | | | [place] [address] | | | | + + + + + + | Absolute | 0.0Comment: Testing | 0 - 0.1 K/uL | EXTERNAL | | | Basophils | performed at [facility], [address] | | LAB | | | | [address], | | | | | | [place] [address] | | | | + + + [...] + +---------+ + + Basic Metabolic Panel (10/31/2013 7:45 AM PDT) + + + + + + | Component | Value | Ref Range | Performed | Pathologist | | | | | At | Signature | + + + + + + | Na | 138Comment: Testing | 135 - 143 | EXTERNAL | | | | performed at [facility], [address] | mmol/L | LAB | | | | [address], | | | | | | [place] [address] | | | | + + + + + + | K | 4.1Comment: Testing | 3.5 - 4.9 | EXTERNAL | | | | performed at [facility], [address] | mmol/L | LAB | | | | [address], | | | | | | [place] [address] | | | | + + + + + + | Cl | 94 (L)Comment: Testing | 99 - 109 mmol/L | EXTERNAL | | | | performed at [facility], [address] | | LAB | | | | [address], | | | | | | [place] [address] | | | | + + + + + + | CO2 | 34 (H)Comment: Testing | 23 - 32 mmol/L | EXTERNAL | | | | performed at [facility], [address] | | LAB | | | | [address], | | | | | | [place] [address] | | | | + + + + + + | Anion Gap | 14Comment: Testing | 5 - 20 mmol/L | EXTERNAL | | | | performed at [facility], [address] | | LAB | | | | [address], | | | | | | [place] [address] | | | | + + + + + + | Glucose, | 132 (H)Comment: Testing | 65 - 99 mg/dL | EXTERNAL | | | Fasting | performed at [facility], [address] | | LAB | | | | [address], | | | | | | [place] [address] | | | | + + + + + + | BUN | 24Comment: Testing | 8 - 25 mg/dL | EXTERNAL | | | | performed at [facility], [address] | | LAB | | | | [address], | | | | | | [place] [address] | | | | + + + + + + | Creatinine | 9.74 (H)Comment: Testing | 0.70 - 1.30 | EXTERNAL | | | | performed at [facility], [address] | mg/dL | LAB | | | | [address], | | | | | | [place] [address] | | | | + + + + + + | BUN/Creatin | 2Comment: Testing | | EXTERNAL | | | ine Ratio | performed at [facility], [address] | | LAB | | | | [address], | | | | | | [place] [address] | | | | + + + + + + | Calcium | 10.0Comment: Testing | 8.5 - 10.2 | EXTERNAL | | | | performed at [facility], [address] | mg/dL | LAB | | | | [address], | | | | | | [place] [address] | | | | + + + [...] | | | | | | [address], | | | | | | [place] [address] | | | | + + + + + + + + | Specimen | + + | Blood specimen | | (specimen) | + + + +---------+ + + | Performing | Address | City/State/Zipcode | Phone Number | | Organization | | | | + +---------+ + + | EXTERNAL LAB | | | | + +---------+ + + MRSA ZOHREH (10/31/2013 7:45 AM PDT) + + | Specimen | + + | | + + + + + | Narrative | Performed At | + + + | [facility](NOSE) | EXTERNAL LAB | | Testing performed at [facility];[address] [place] [address];[place] [address] MRSA PCR | | | NEGATIVE Testing performed at | | | [facility];[address] [place] [address];[place] [address] | | + + + + +---------+ + + | Performing | Address | City/State/Zipcode | Phone Number | | Organization | | | | + +---------+ + + | EXTERNAL LAB | | | | + +---------+ + + ECG 12 lead (10/31/2013 7:22 AM PDT) + + + + + [...] | | | | | ECG of 10-OCT-2010 | | | | | | 05:42,Vent. rate has | | | | | | decreased BY 40 BPMQT | | | | | | has shortenedConfirmed | | | | | | by TOMAS SEAMAN ([id number]) | | | | | | on 10/31/2013 9:38:35 AM | | | | + + + + + + + + | Specimen | + + | | + + + + + | Narrative | Performed At | + + + | Historically converted procedure from [facility] Epic environment | EXTERNAL LAB | + + + + +---------+ + + | Performing | Address | City/State/Zipcode | Phone Number | | Organization | | | | + +---------+ + + | EXTERNAL LAB | | | | + +---------+ + + documented in this encounter Visit Diagnoses Not on filedocumented in this encounter"
--- OUTSIDE RECORDS SUMMARY | ~2019-05-09 | XMS | Encounter Summary ---
Demographics + + + | Address | [address] | | | [place] [address] | + + + | Home Phone [...] + + + | Author | [facility] | + [...] Team Providers + +------+ + | Care Wall To Wall Carpet Installer Name | Role | Phone | + [...] | | | | | [place], | | | | | | [place] [address] | | | +--------+ + + + [...] [facility] - | [address] | [place] [address] | | | IMMUNOGENETICS/TRANS | [address] | | | | PLANT LAB[facility]ATORY | | | | + + + + + documented in this encounter Visit Diagnoses Not on filedocumented in this encounter"
--- OUTSIDE RECORDS SUMMARY | ~2019-05-09 | XMS | Encounter Summary ---
Demographics + + + | Address | [address] | | | [place] [address] | + + + | Home Phone | | + + + | Preferred Language | Unknown | + + + | Marital Status | Single | + + + | Muslim Affiliation | Unknown | + + + | Race | Black or | + + + | Ethnic Group | Not or | + + + Author + + + | Author | [facility] | + + + | Organization | [facility] | + + + | Address | Unknown | + + + | Phone | Unavailable | + + + Support + + +---------+ + | Name | Relationship | Address | Phone | + + +---------+ + | Olesya Lamb | ECON | Unknown | | + + +---------+ + Care Team Providers + +------+ + | Care Order Booker Name | Role | Phone | + [...] | | | | | [place], | | | | | | [place] [address] | | | +--------+ + + + [...] [facility] - | [address] | [place] [address] | | | IMMUNOGENETICS/TRANS | [address] [...] [facility] - | [address] | [place] [address] | | | IMMUNOGENETICS/TRANS | [address] | | | | PLANT LABORATORY | | | | + + + + + documented in this encounter Visit Diagnoses Not on filedocumented in this encounter"
--- OUTSIDE RECORDS SUMMARY | ~2019-05-09 | XMS | Encounter Summary ---
Demographics + + + | Address | [address] | | | [place] [address] | + + + | Home Phone [...] [facility] | | | and [...] Providers + +------+ + | Care Aircraft Charter Dispatcher Name | Role | Phone | + +------+ + PCP | Unavailable | + +------+ + Encounter Details +--------+ + + + + | Date | Type | Department | Care Team | Description | +--------+ + + + + | 10/26/ | Hospital | [facility] | Jewel Yanez | PNEUMONIA, ORGANISM | | 2010 | Encounter | CONVERSION DEP [address] | [place] [address] | UNSPECIFIED; | | | | [address] | [address] | Unspecified | | | | [place], [place] | [place], [place] | circulatory system | | | | [address] | [address] | disorder; Other | | | | [phone] | [phone] | Specified | | | | | [...] | | | | | | [address] [place] | | | | | | [address] | | | | | | | [...] Performed At | + + + | [facility] [address] Ph: | | | Patient Name: NIK MA Date of : | | | 1960 Medical Record: [id number] Account: [id number] | | | Exam Date/Time: 10/26/2010 13:40 Ordering | | | Physician: ALEXX GUTIERREZ Order Detail: [id number] Exam Description: US | | | UPPER [...] - 01/05/2019 5:11 PM PDT | | [facility] | | [facility] [address] | | | | | | Patient Name: NIK MA | | Date of : 1960 | | Medical Record: [id number] | | Account: [id number] | | | | | | Exam [...]
--- OUTSIDE RECORDS SUMMARY | ~2019-05-09 | XMS | Encounter Summary ---
Demographics + + + | Address | [address] | | | [place] [address] | + + + | Home Phone [...] Author + + + | Author | [facility] | + + + | Organization [...] Team Providers + +------+ + | Care Implementation Specialist Payroll Name | Role | Phone | + +------+ + | Oziel Michael MD | PCP | | + +------+ + Encounter Details +--------+ + + + + | Date | Type | Department | Care Team | Description | +--------+ + + + + | 05/21/ | Ancillary | LAB IMMUNOGENETIC | | | | 2014 | Orders | AND TRANSPLANT LAB | | | | | | [address] | | | | | | [place], | | | | | | [place] [address] | | | +--------+ + + + [...] FLOW HLA AB PRA | Routin | 05/21/2014 | | | | SCREEN I/II | e | 4:17 PM | | | | | | PST | | | + +--------+ + + + documented in this encounter Results LIT FLOW HLA AB PRA SCREEN I/II (05/21/2014 4:17 PM PST) + + | Specimen | + + | Blood - Blood | + + + + + + + | Performing | Address | City/State/Zipcode | Phone Number | | Organization | | | | + + + + + | [facility] - | [address] | [place] [address] | | | IMMUNOGENETICS/TRANS | [address] | | | | PLANT LAB[facility]ATORY | | | | + + + + + documented in this encounter Visit Diagnoses Not on filedocumented in this encounter"
--- OUTSIDE RECORDS SUMMARY | ~2019-05-09 | XMS | Encounter Summary ---
Demographics + + + | Address | [address] | | | [place] [address] | + + + | Home Phone [...] + + + | Author | [facility] | | | and [place] | + + + | Organization | [facility] | | | [...] Team Providers + +------+ + | Care Nursing Home Director Name | Role | Phone | + +------+ + | Oziel Michael MD | PCP | | + +------+ + Encounter Details +--------+ + + + + | Date | Type | Department | Care Team | Description | +--------+ + + + + | 12/01/ | Orders Only | [facility] | Alexx Gutierrez MD | | | 2017 | | NEPHROLOGY [place] | [address] [place] | | | | | [address] [place] | [address] [place], [place] | | | | | [address] [place], [place] | [address] | | | | | [address] | | | | | | [phone] | | | +--------+ + + + [...] Visit | | [address] [facility] | | | | | | [address] [place] | | | | | | [address] | | | | | | | | +--------+---------+ + + + documented as of this encounter Procedures + +--------+ + + + | Procedure Name | Priori | Date/Time | Associated Diagnosis | Comments | | | ty | | | | + +--------+ + + + | EXTERNAL LAB: | Routin | 12/01/2016 | | Results for this | | TACROLIMUS LEVEL, | e | 12:27 PM | | procedure are in the | | LC-MS/MS | | PDT | | results section. | + +--------+ + + + | EXTERNAL LAB: CBC | Routin | 12/01/2016 | | Results for this | | | e | 12:27 PM | | procedure are in the | | | | PDT | | results section. | + +--------+ + + + | URINALYSIS WITH | Routin | 12/01/2016 | | Results for this | | MICROSCOPIC IF | e | 12:27 PM | | procedure are in the | | INDICATED | | PDT | | results section. | + +--------+ + + + | LIPID PANEL | Routin | 12/01/2016 | | Results for this | | | e | 12:27 PM | | procedure are in the | | | | PDT | | results section. | + +--------+ + + + | ALT | Routin | 12/01/2016 | | Results for this | | | e | 12:27 PM | | procedure are in the | | | | PDT | | results section. | + +--------+ + + + | PROTEIN/CREATININE | Routin | 12/01/2016 | | Results for this | | RATIO, URINE | e | 12:27 PM | | procedure are in the | | | | PDT | | results section. | + +--------+ + + + | BK VIRUS, NAAT, | Routin | 12/01/2016 | | Results for this | | URINE, QUANT | e | 12:27 PM | | procedure are in the | | | | PDT | | results section. | + +--------+ + + + | URIC ACID | Routin | 12/01/2016 | | Results for this | | | e | 12:27 PM | | procedure are in the | | | | PDT | | results section. | + +--------+ + + + | AST | Routin | 12/01/2016 | | Results for this | | | e | 12:27 PM | | procedure are in the | | | | PDT | | results section. | + +--------+ + + + | MAGNESIUM | Routin | 12/01/2016 | | Results for this | | | e | 12:27 PM | | procedure are in the | | | | PDT | | results section. | + +--------+ + + + | CK TOTAL | Routin | 12/01/2016 | | Results for this | | | e | 12:27 PM | | procedure are in the | | | | PDT | | results section. | + +--------+ + + + | RENAL FUNCTION PANEL | Routin | 12/01/2016 | | Results for this | | | e | 12:27 PM | | procedure are in the | | | | PDT | | results section. | + +--------+ + + + documented in this encounter Results External Lab: Tacrolimus Level, LC-MS/MS (12/01/2016 12:27 PM PDT) + +-------+ + + + | Component | Value | Ref Range | Performed | Pathologist | | | | | At | Signature | + +-------+ + + + | Tacrolimus | 4.6 | | EXTERNAL | | | Level [...] + +---------+ + + Protein/Creatinine Ratio, Urine (12/01/2016 12:27 PM PDT) + + + + + + | Component | Value | Ref Range | Performed | Pathologist | | | | | At | Signature | + + + + + + | Protein/Cre | 216.7 (A) | 0 - 150 | EXTERNAL [...] + + BK Virus, NAAT, Urine, Quant (12/01/2016 12:27 PM PDT) + + | Specimen | + + | Urine specimen | | (specimen) | + + + + + | Narrative | Performed At | + + + | BK Quant Source Whole Blood BK Quant copy/mL <390 BK Quant log | EXTERNAL LAB | | <2.6 | | + + + + +---------+ + + | Performing | Address | City/State/Zipcode | Phone Number | | Organization | | | | + +---------+ + + | EXTERNAL LAB | | | | + +---------+ + + Urinalysis with Microscopic if Indicated (12/01/2016 12:27 PM PDT) + + + + + [...] + +---------+ + + External Lab: CBC (12/01/2016 12:27 PM PDT) + +---------+ + + + | Component | Value | Ref Range | Performed | Pathologist | | | | | At | Signature | + +---------+ + + + | WBC | 4.4 (A) | 4.5 - 11.0 10 | EXTERNAL | | | | | | LAB | | + +---------+ + + + | RED CELL | 4.68 | 4.3 - 5.7 10 | EXTERNAL | | | COUNT | | | LAB | | + +---------+ + + + | Hgb | 13.7 | 13.5 - 18.0 | EXTERNAL | | | | | g/dL | LAB | | + +---------+ + + + | Hematocrit, | 42.0 | 41 - 50 % | EXTERNAL | | | POC | | | LAB | | + +---------+ + + + | MCV | 89.7 [...] +---------+ + + + | Platelet | 189 | 140 - 440 K/ L | [...] | + +---------+ + + Uric Acid (12/01/2016 12:27 PM PDT) + +-------+ + + + | Component | Value | Ref Range | Performed | Pathologist | | | | | At | Signature | + +-------+ + + + | Uric Acid | 7.1 | 4.4 - 7.6 | EXTERNAL | [...] | | + +---------+ + + ALT (12/01/2016 12:27 PM PDT) + +-------+ + + + | Component | Value | Ref Range | Performed | Pathologist | | | | | At | Signature | + +-------+ + + + | ALT | 15 | 7 - 52 U/L | EXTERNAL [...] | | + +---------+ + + AST (12/01/2016 12:27 PM PDT) + +-------+ + + + [...] | | + +---------+ + + Magnesium (12/01/2016 12:27 PM PDT) + +---------+ + + + [...] | + +---------+ + + CK Total (12/01/2016 12:27 PM PDT) + +---------+ + + + | Component | Value | Ref Range | Performed | Pathologist | | | | | At | Signature | + +---------+ + + + | CK, Total | 370 (A) | 24 - 195 U/L | [...] + +---------+ + + Renal Function Panel (12/01/2016 12:27 PM PDT) + + + + + + | Component | Value | Ref Range | Performed | Pathologist | | | | | At | Signature | + + + + + + | Glucose, | 151 (A) | 70 - 100 mg/dL | EXTERNAL | | | Fasting | | | LAB | | + + + + + + | BUN | 22 | 6 - 23 mg/dL | EXTERNAL | | | | | | LAB | | + + + + + + | Creatinine | 1.62 (A) | 0.70 - 1.33 | EXTERNAL [...] | | | LAB | | | [place]ESE | | | | | + + + + + + | Phosphorus, | 3.0 | 2.5 - 5.0 | EXTERNAL | | | Inorganic | | | LAB | | + + + + + + | BUN/Creatin | 13.6 | 6.0 - 28.6 | EXTERNAL | | | ine Ratio | | | LAB | | + + + + + + | Calcium | 9.3 | 8.4 - 10.2 | EXTERNAL | | | | | mg/dL | LAB | | + + + + + + | Estimated | 44 | mg/dL | EXTERNAL | | | [...] | + +---------+ + + Lipid Panel (12/01/2016 12:27 PM PDT) + +---------+ + + + | Component | Value | Ref Range | Performed | Pathologist | | | | | At | Signature | + +---------+ + + + | Cholesterol | 173 | mg/dL | EXTERNAL | | | | | | LAB | | + +---------+ + + + | Triglycerid | 165 (A) | 30 - 150 mg/dL | EXTERNAL | | | es | | | LAB | | + +---------+ + + + | HDL | 34.4 | mg/dl | EXTERNAL | | | | | | LAB | | + +---------+ + + + | LDL | 106 | mg/dL | EXTERNAL | | | [...] +---------+ + + + | VLDL | 33 | 4 - 40 mg/dL | EXTERNAL | | | | | | LAB | | + +---------+ + + + | Non HDL | 139 | | EXTERNAL | | | Chol. [...]
--- OUTSIDE RECORDS SUMMARY | ~2019-05-09 | XMS | Encounter Summary ---
Demographics + + + | Address | [address] | | | [place] [address] | + + + | Home Phone [...] + | Author | [facility] | + + + | Organization | [facility] | + + + | Address | Unknown | + + + | Phone | Unavailable | + + + Support + + +---------+ + | Name | Relationship | Address | Phone | + + +---------+ + | Olesya Lamb | ECON | Unknown | | + + +---------+ + Care Team Providers + +------+ + | Care Hemstitcher Name | Role | Phone | + [...] | | | | | [address] [place], | | | | | | [place] [address] | | | +--------+ + + + [...] + + + | [facility] - | [address] | [place] [address] | | | IMMUNOGENETICS[facility]TRANS | [address] | | | | [facility] | | | | + + + + + documented in this encounter Visit Diagnoses Not on filedocumented in this encounter"
--- OUTSIDE RECORDS SUMMARY | ~2019-05-09 | XMS | Encounter Summary ---
Demographics + + + | Address | [address] | | | [place] [address] | + + + | Home Phone [...] Team Providers + +------+ + | Care Head Neck Surgeon Name | Role | Phone | + +------+ + | Oziel Michael MD | PCP | | + +------+ + Reason for Visit +--------+ + | Reason | Comments | +--------+ + | Other | Appointment reminder call | +--------+ + Encounter Details +--------+ + + + + | Date | Type | Department | Care Team | Description | +--------+ + + + + | 02/18/ | Telephone | [facility] | Alexx Gutierrez MD | Other (Appointment | | 2019 | | NEPHROLOGY [place] | [address] [place] | reminder call) | | | | [address] [place] | [address] [place], [place] | | | | | [address] [place], [place] | [address] | | | | | [address] | | | | | | [phone] | | | +--------+ + + + [...] | | | | | | [address] [place] | | | | | | [address] | | | | | | | [...] + + documented in this encounter Results AST (02/22/2019) + +--------+ + + + | Component | Value | Ref Range | Performed | Pathologist | | | | | At | Signature | + +--------+ + + + | AST | 11 (A) | 13 - 39 U/L | | | + +--------+ + + + + + | Specimen | + + | Blood | + + CREATINE KINASE (02/22/2019) + [...] + + | Blood | + + External Lab: Protein/Creatinine Ratio (02/22/2019) + + [...] | + + | | + + Renal Function Panel (02/22/2019) [...] + + | Blood | + + ALT (02/22/2019) + +-------+ + [...] + + | Blood | + + documented in this encounter Visit Diagnoses Not on filedocumented in this encounter"
--- OUTSIDE RECORDS SUMMARY | ~2019-05-09 | XMS | Encounter Summary ---
Demographics + + + | Address | [address] | | | [place] [address] | + + + | Home Phone | | + + + | Preferred Language | Unknown | + + + | Marital Status | Single | + + + | Caodaism Affiliation | Unknown | + + + | Race | Black or | + + + | Ethnic Group | Not or | + + + Author + + + | Author | [facility] | + + + | Organization | [facility] | + + + | Address | Unknown | + + + | Phone | Unavailable | + + + Support + + +---------+ + | Name | Relationship | Address | Phone | + + +---------+ + | Olesya Lamb | ECON | Unknown | | + + +---------+ + Care Team Providers + +------+ + | Care Supervisor Drying And Softening Name | Role | Phone | + [...] | | | | | | [place] [address] | | | +--------+ + + + [...] [facility] - | [address] | [place] [address] | | | IMMUNOGENETICS[facility]TRANS | [address] | | | | [facility] | | | | + + + + + documented in this encounter Visit Diagnoses Not on filedocumented in this encounter"
--- OUTSIDE RECORDS SUMMARY | ~2019-05-09 | XMS | Encounter Summary ---
Demographics + + + | Address | [address] | | | [place] [address] | + + + | Home Phone [...] Team Providers + +------+ + | Care Parts Counter Sales Person Name | Role | Phone | + +------+ + PCP | Unavailable | + +------+ + Encounter Details +--------+ + + + + | Date | Type | Department | Care Team | Description | +--------+ + + + + | 10/25/ | Hospital | [facility] | Conversion | ESRD (end stage | | 2013 | Encounter | CENTER CV INTRA OP | Transaction, | renal disease) ([facility]) | | | | [address] | Provider Unknown | | | | | [place], [place] | [phone] | | | | | [address] | | | | | | [phone] | Leonardo Dickey, [address] | | | | | | [address] | | | | | | [place], [place] | | | | | | [address] | | | | | | [phone] | | | | | | | [...] Progress Notes Conversion Transaction, Provider Unknown - 10/25/2012 5:56 PM PDTFormatting of this note m ight be different from the original. Progress Notes by Sushant Mata RN at 10/25/121755 Author: Sushant Mata RN Service: (none) Author Type: Registered Nurse Filed: 10/25/121757 Date of Service: 10/25/121755 Status: Signed Septic Technician: Sushant Mata RN (Registered Nurse) Pt given discharge instructions with verbalization of understanding. Vss. Dressing to le ft arm cdi with no s/s complications noted. Pt denies pain or concerns. Pt discharged home with friend in stable condition. Escorted out ambulatory. SUSHANT BERNAL docume nted in this encounter Plan of Treatment +--------+---------+ + + + | Date | Type | Specialty | Care Team | Description | +--------+---------+ + + + | 05/20/ | Office | Nephrology | Alexx Gutierrez MD | | | 2020 | Visit | | [address] [facility] | | | | | | [address] [facility] | | | | | | [address] | | | | | | | | +--------+---------+ + + + documented as of this encounter Procedures + +--------+ + + + | Procedure Name | Priori | Date/Time | Associated Diagnosis | Comments | | | ty | | | | + +--------+ + + + | IR INJECTION | Routin | 10/25/2012 | | Results for this | | DIALYSIS CIRCUIT W | e | 5:35 PM | | procedure are in the | | ANGIOPLASTY | | PDT | | results section. | + +--------+ + + + | IR INJECTION | Routin | 10/25/2012 | | Results for this | | DIALYSIS CIRCUIT | e | 5:35 PM | | procedure are in the | | | | PDT | | results section. | + +--------+ + + + documented in this encounter Results IR Inj Dialysis Circuit w Angioplasty (10/25/2012 5:35 PM PDT) + + | Specimen | + + | | + + + + + | Narrative | Performed At | + + + | | | | | | | PREOPERATIVE DIAGNOSIS End-stage renal disease and poorly functioning | | | left arm fistula. POSTOPERATIVE DIAGNOSIS End-stage renal | | | disease and poorly functioning left arm fistula. PROCEDURE 1. | | | Left arm fistulogram. 2. Angioplasty of cephalic vein using 7 x 40 mm | | | angioplasty balloon. 3. Angioplasty of in-stent restenosis using 7 x | | | 20 mm cutting balloon. SURGEON Leonardo Dickey MD DESIGN COORDINATOR None. | | | ANESTHESIA Moderate sedation, local anesthesia. ESTIMATED | | | BLOOD LOSS Minimal. CONTRAST GIVEN 25 mL Isovue-250 | | | INDICATIONS Mr. Ma is a pleasant 52-year-old male with past | | | medical history significant for hypertension and end-stage renal | | | disease who has been dialyzing by a left arm brachiocephalic fistula. | | | This fistula has required previous cephalic vein stenting. Due to | | | poor flow rates he was referred to me again for another fistulogram. | | | FINDINGS The patient had stenosis of the cephalic vein proximal | | | to the stent and also in-stent restenosis. Initial fistula pressure | | | was 124/68 after angioplasty. There was good angiographic and | | | hemodynamic results. Final pressures were noted to be 95/56. No | | | central stenosis was seen. DESCRIPTION OF PROCEDURE The patient | | | was properly identified and brought to the catheterization lab. The | | | patient was placed supine on the catheterization lab table. The | | | patient's left arm was then prepped and draped in the usual sterile | | | fashion. Local anesthetic was then given to the antecubital fossa and | | | the cephalic vein was accessed near the antecubital fossa using | | | micropuncture needle. Micropuncture sheath was then inserted. A | | | fistulogram was then performed which showed stenosis of the cephalic | | | vein, proximal to the stent and also stenosis in the stent itself. | | | Therefore, a 6-Kittitian sheath was inserted over a wire. First a 7 x 40 | | | mm angioplasty balloon was then used to angioplasty the cephalic | | | vein. Next a 7 x 20 mm cutting balloon was used to angioplasty the | | | in-stent restenosis in 60 degree increments. After angioplasty, there | | | was good resolution of stenosis and improvement in the fistula | | | pressure. There was also a good thrill in the fistula. A pursestring | | | suture of 3-0 Vicryl was then placed around the sheath and the sheath | | | was removed. Hemostasis was assured. Sterile dressing was then | | | applied. At the end of the case, sponge, needle and instrument counts | | | were correct x2. The patient was taken to the observation unit for | | | further monitoring. Read by LEONARDO DICKEY MD 10/26/2012 11:17 A | | | | | + + + + + | Procedure Note | + + | Manoj Weiss Conversion - 01/04/2019 11:57 PM PDT | | | | PREOPERATIVE DIAGNOSIS | | End-stage renal disease and poorly functioning left arm fistula. | | | | POSTOPERATIVE DIAGNOSIS | | End-stage renal disease and poorly functioning left arm fistula. | | | | PROCEDURE | | 1. Left arm fistulogram. | | 2. Angioplasty of cephalic vein using 7 x 40 mm angioplasty balloon. | | 3. Angioplasty of in-stent restenosis using 7 x 20 mm cutting balloon. | | | | SURGEON | | Leonardo Dickey MD | | | | DESIGN COORDINATOR | | None. | | | | ANESTHESIA | | Moderate sedation, local anesthesia. | | | | ESTIMATED BLOOD LOSS | | Minimal. | | | | CONTRAST GIVEN | | 25 mL Isovue-250 | | | | INDICATIONS | | Mr. Ma is a pleasant 52-year-old male with past medical history | | significant for hypertension and end-stage renal disease who has been | | dialyzing by a left arm brachiocephalic fistula. This fistula has required | | previous cephalic vein stenting. Due to poor flow rates he was referred to | | me again for another fistulogram. | | | | FINDINGS | | The patient had stenosis of the cephalic vein proximal to the stent and | | also in-stent restenosis. Initial fistula pressure was 124/68 after | | angioplasty. There was good angiographic and hemodynamic results. Final | | pressures were noted to be 95/56. No central stenosis was seen. | | | | DESCRIPTION OF PROCEDURE | | The patient was properly identified and brought to the catheterization | | lab. The patient was placed supine on the catheterization lab table. The | | patient's left arm was then prepped and draped in the usual sterile | | fashion. Local anesthetic was then given to the antecubital fossa and the | | cephalic vein was accessed near the antecubital fossa using micropuncture | | needle. Micropuncture sheath was then inserted. A fistulogram was then | | performed which showed stenosis of the cephalic vein, proximal to the | | stent and also stenosis in the stent itself. Therefore, a 6-Kittitian sheath | | was inserted over a wire. First a 7 x 40 mm angioplasty balloon was then | | used to angioplasty the cephalic vein. Next a 7 x 20 mm cutting balloon | | was used to angioplasty the in-stent restenosis in 60 degree increments. | | After angioplasty, there was good resolution of stenosis and improvement | | in the fistula pressure. There was also a good thrill in the fistula. A | | pursestring suture of 3-0 Vicryl was then placed around the sheath and the | | sheath was removed. Hemostasis was assured. Sterile dressing was then | | applied. At the end of the case, sponge, needle and instrument counts were | | correct x2. The patient was taken to the observation unit for further | | monitoring. | | | | Read by LEONARDO DICKEY MD 10/26/2012 11:17 A | | | | | + + IR Inj Dialysis Circuit (10/25/2012 5:35 PM PDT) + + | Specimen | + + | | + + + + + | Narrative | Performed At | + + + | | | | | | | PREOPERATIVE DIAGNOSIS End-stage renal disease and poorly functioning | | | left arm fistula. POSTOPERATIVE DIAGNOSIS End-stage renal | | | disease and poorly functioning left arm fistula. PROCEDURE 1. | | | Left arm fistulogram. 2. Angioplasty of cephalic vein using 7 x 40 mm | | | angioplasty balloon. 3. Angioplasty of in-stent restenosis using 7 x | | | 20 mm cutting balloon. SURGEON Leonardo Dickey MD DESIGN COORDINATOR None. | | | ANESTHESIA Moderate sedation, local anesthesia. ESTIMATED | | | BLOOD LOSS Minimal. CONTRAST GIVEN 25 mL Isovue-250 | | | INDICATIONS Mr. Ma is a pleasant 52-year-old male with past | | | medical history significant for hypertension and end-stage renal | | | disease who has been dialyzing by a left arm brachiocephalic fistula. | | | This fistula has required previous cephalic vein stenting. Due to | | | poor flow rates he was referred to me again for another fistulogram. | | | FINDINGS The patient had stenosis of the cephalic vein proximal | | | to the stent and also in-stent restenosis. Initial fistula pressure | | | was 124/68 after angioplasty. There was good angiographic and | | | hemodynamic results. Final pressures were noted to be 95/56. No | | | central stenosis was seen. DESCRIPTION OF PROCEDURE The patient | | | was properly identified and brought to the catheterization lab. The | | | patient was placed supine on the catheterization lab table. The | | | patient's left arm was then prepped and draped in the usual sterile | | | fashion. Local anesthetic was then given to the antecubital fossa and | | | the cephalic vein was accessed near the antecubital fossa using | | | micropuncture needle. Micropuncture sheath was then inserted. A | | | fistulogram was then performed which showed stenosis of the cephalic | | | vein, proximal to the stent and also stenosis in the stent itself. | | | Therefore, a 6-Kittitian sheath was inserted over a wire. First a 7 x 40 | | | mm angioplasty balloon was then used to angioplasty the cephalic | | | vein. Next a 7 x 20 mm cutting balloon was used to angioplasty the | | | in-stent restenosis in 60 degree increments. After angioplasty, there | | | was good resolution of stenosis and improvement in the fistula | | | pressure. There was also a good thrill in the fistula. A pursestring | | | suture of 3-0 Vicryl was then placed around the sheath and the sheath | | | was removed. Hemostasis was assured. Sterile dressing was then | | | applied. At the end of the case, sponge, needle and instrument counts | | | were correct x2. The patient was taken to the observation unit for | | | further monitoring. Read by LEONARDO DICKEY MD 10/26/2012 11:17 A | | | | | + + + + + | Procedure Note | + + | Abhishek, Rad Conversion - 01/04/2019 11:57 PM PDT | | | | PREOPERATIVE DIAGNOSIS | | End-stage renal disease and poorly functioning left arm fistula. | | | | POSTOPERATIVE DIAGNOSIS | | End-stage renal disease and poorly functioning left arm fistula. | | | | PROCEDURE | | 1. Left arm fistulogram. | | 2. Angioplasty of cephalic vein using 7 x 40 mm angioplasty balloon. | | 3. Angioplasty of in-stent restenosis using 7 x 20 mm cutting balloon. | | | | SURGEON | | Leonardo Dickey MD | | | | DESIGN COORDINATOR | | None. | | | | ANESTHESIA | | Moderate sedation, local anesthesia. | | | | ESTIMATED BLOOD LOSS | | Minimal. | | | | CONTRAST GIVEN | | 25 mL Isovue-250 | | | | INDICATIONS | | Mr. Ma is a pleasant 52-year-old male with past medical history | | significant for hypertension and end-stage renal disease who has been | | dialyzing by a left arm brachiocephalic fistula. This fistula has required | | previous cephalic vein stenting. Due to poor flow rates he was referred to | | me again for another fistulogram. | | | | FINDINGS | | The patient had stenosis of the cephalic vein proximal to the stent and | | also in-stent restenosis. Initial fistula pressure was 124/68 after | | angioplasty. There was good angiographic and hemodynamic results. Final | | pressures were noted to be 95/56. No central stenosis was seen. | | | | DESCRIPTION OF PROCEDURE | | The patient was properly identified and brought to the catheterization | | lab. The patient was placed supine on the catheterization lab table. The | | patient's left arm was then prepped and draped in the usual sterile | | fashion. Local anesthetic was then given to the antecubital fossa and the | | cephalic vein was accessed near the antecubital fossa using micropuncture | | needle. Micropuncture sheath was then inserted. A fistulogram was then | | performed which showed stenosis of the cephalic vein, proximal to the | | stent and also stenosis in the stent itself. Therefore, a 6-Kittitian sheath | | was inserted over a wire. First a 7 x 40 mm angioplasty balloon was then | | used to angioplasty the cephalic vein. Next a 7 x 20 mm cutting balloon | | was used to angioplasty the in-stent restenosis in 60 degree increments. | | After angioplasty, there was good resolution of stenosis and improvement | | in the fistula pressure. There was also a good thrill in the fistula. A | | pursestring suture of 3-0 Vicryl was then placed around the sheath and the | | sheath was removed. Hemostasis was assured. Sterile dressing was then | | applied. At the end of the case, sponge, needle and instrument counts were | | correct x2. The patient was taken to the observation unit for further | | monitoring. | | | | Read by LEONARDO DICKEY MD 10/26/2012 11:17 A | | | | | + + documented in this encounter Visit Diagnoses + + | Diagnosis | + + | ESRD (end stage renal disease) (HCC) End stage renal disease | + + documented in this encounter"
--- OUTSIDE RECORDS SUMMARY | ~2019-05-09 | XMS | Encounter Summary ---
Demographics + + + | Address | [address] | | | [place] [address] | + + + | Home Phone [...] + + | Author | [facility] | + + + | Organization | [facility] | + + + | Address | Unknown | + + + | Phone | Unavailable | + + + Support + + +---------+ + | Name | Relationship | Address | Phone | + + +---------+ + | Olesya Lamb | ECON | Unknown | | + + +---------+ + Care Team Providers + +------+ + | Care Ditch Tender Name | Role | Phone | + +------+ + | Oziel Michael MD | PCP | | + +------+ + Encounter Details +--------+ + + + + | Date | Type | Department | Care Team | Description | +--------+ + + + + | 04/27/ | Lab | LAB IMMUNOGENETIC | | | | 2014 | Requisition | [facility]PL[facility] | | | | | | [address] | | | | | | [place], | | | | | | [place] [address] | | | +--------+ + + + [...] FLOW HLA AB PRA | Routin | 04/27/2015 | | | | SCREEN I/II | e | 11:50 AM | | | | | | PST | | | + +--------+ + + + documented in this encounter Results LIT FLOW HLA AB PRA SCREEN I/II (04/27/2015 11:50 AM PST) + + | Specimen | + + | Blood - Blood | | (substance) | + + + + + + + | Performing | Address | City/State/Zipcode | Phone Number | | Organization | | | | + + + + + | [facility] - | [address] | [place] [address] | | | IMMUNOGENETICS/TRANS | [address] | | | | [facility] | | | | + + + + + documented in this encounter Visit Diagnoses Not on filedocumented in this encounter"
--- OUTSIDE RECORDS SUMMARY | ~2019-05-09 | XMS | Encounter Summary ---
Demographics + + + | Address | [address] | | | [place] [address] | + + + | Home Phone [...] + + + | Author | [facility] | | | and [place] | + + + | Organization | [facility] | | | [...] Team Providers + +------+ + | Care Programmer Name | Role | Phone | + +------+ + | Oziel Michael MD | PCP | | + +------+ + Encounter Details +--------+ + + + + | Date | Type | Department | Care Team | Description | +--------+ + + + + | 07/20/ | Orders Only | [facility] | Conversion | | | 2019 | | NEPHROLOGY PERRY | Transaction, | | | | | [address] | Provider Unknown | | | | | [address] [place], [place] | | | | | | [address] | (Fax) | | | | | [phone] | | | +--------+ + + + [...] 2019 | Visit | | [address] [facility] | | | | | | [address] [place], [place] | | | | | | [address] | | | | | | | [...]
--- OUTSIDE RECORDS SUMMARY | ~2019-05-09 | XMS | Encounter Summary ---
Demographics + + + | Address | [address] | | | [place] [address] | + + + | Home Phone | | + + + | Preferred Language | Unknown | + + + | Marital Status | Single | + + + | Holiness Affiliation | Unknown | + + + | Race | Black or | + + + | Ethnic Group | Not or | + + + Author + + + | Author | [facility] | + + + | Organization | [facility] | + + + | Address | Unknown | + + + | Phone | Unavailable | + + + Support + + +---------+ + | Name | Relationship | Address | Phone | + + +---------+ + | Olesya Lamb | ECON | Unknown | | + + +---------+ + Care Team Providers + +------+ + | Care Automation Controls Expert Name | Role | Phone | + [...] | | | | | [address] [place], | | | | | | [place] [address] | | | +--------+ + + + [...] + + + | [facility] - | [address] | [place] [address] | | | IMMUNOGENETICS/TRANS | [address] | | | | [facility] | | | | + + + + + documented in this encounter Visit Diagnoses Not on filedocumented in this encounter"
--- OUTSIDE RECORDS SUMMARY | ~2019-05-09 | XMS | Clinical Summary ---
Demographics + + + | Address | [address] | | | [place] [address] | + + + | Home Phone [...] Team Providers + +------+ + | Care Edi Specialist Name | Role | Phone | [...] | | | | | | | ([facility]), | | | | | | | | Immunosuppression | | | | | | | | ([facility]), | | | | | | | [...] Noted Date | + + + | tank terminal gauger (current) use of 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 | 08/20/2018 [...] - 02/05/19) | | | | | Mines Safety Engineer | | +--------+ + + + + | 02/25/ | Office | Nephrology | Alexx Gutierrez MD | Kidney replaced by | | 2018 | Visit | | | transplant (Primary | | | | | | Dx); | | | | | | Immunosuppression | | | | | | ([facility]); tank terminal gauger | | | | | | (current) [...] III | | | | | | ([facility]); | | | | | | Immunosuppressive | | | | | | management encounter | | | | | | following kidney | | | | | | transplant; | | | | | | Secondary | | | | | | hyperparathyroidism | | | | | | ([facility]); Class 2 | | | | | [...] | | | | | | (HCC); tank terminal gauger | | | | | | (current) use of | | | | | | 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; | | | | | | Immunosuppression | | | | | | ([facility]); Kidney | | | | | | replaced by | | | | | | transplant | +--------+ + + + + | 02/22/ | Orders Only | Nephrology | Radha Szymanski | | | 2018 | | | V, Medical | | | | | | Mines Safety Engineer | | +--------+ + + + + | 02/22/ | Telephone | Nephrology | Radha Szymanski | Other (APPT/LABS | | 2018 | | | V, Medical | REMINDER) | | | | | Mines Safety Engineer | | +--------+ + + + + [...] | | | | | | [address] [place] | | | | | | [address] | | | | | | | [...] | [employer]IG[employer] WArturo. | | 06/10/ | [id number] | | Rings Lined [id number] 40cm | | Arm | DIGNA & | | 2018 | [id number] | | Ring - | | | ASSOC. | | | | | [id number]: Qty: | | | MEDICAL PRD | | | /[id number] | | 1 on 11/05/2013 by Leonardo Dickey | | | | | | [id number] | | MD Kimberley | | | | | | L | | | | | | | | /[id number] | | | | | | | [...] +--------+ +---------+--------+ | MEDICARE | MEDICA | [id number] | 01/14/20 | [phone] | | Medica | | | RE | | 11-Pre | 5 | | re | | | PART A | | sent | | | | | | AND B | | | | | | + +--------+ +--------+ +---------+--------+ | MEDICARE | MEDICA | [id number] | 01/14/20 | [phone] | | Medica | | | RE | | 11-Pre | 5 | | re | | | PART A | | sent | | | | | | AND B | | | | | | + +--------+ +--------+ +---------+--------+ | [employer] | [employer] | [id number] | 02/25/ | [phone] | | Medica [...] Self | [birth year] | [address] | | | al/Fam | | 1961 | [phone] | [place] | | | alexsandra | | | [address] ([place]) | [address] | + +--------+ +--------+ + + | Nik Ma | Third | Self | [birth year] | [address] | | | [employer] | | 1961 | [phone] | [place] | | | Liabil | | | [address] ([place]) | [address] | | | ity | | | | | + +--------+ +--------+ + + Advance Directives + + + + + | Type | Date Recorded | Patient | Explanation | | | | Parachute Harness Rigger | | + + + + + | Power of | | | | | Excellence Consultant | | | | + + + + + | Advance | | | | | Directive | | | | + + + + +
--- OUTSIDE RECORDS SUMMARY | ~2019-05-09 | XMS | Encounter Summary ---
Demographics + + + | Address | [address] | | | [place] [address] | + + + | Home Phone [...] Providers + +------+ + | Care Nursing Unit Clerk Name | Role | Phone | + +------+ + PCP | Unavailable | + +------+ + Encounter Details +--------+ + + + + | Date | Type | Department | Care Team | Description | +--------+ + + + + | 07/06/ | Orders Only | [facility] | Conversion | | | 2018 | | NEPHROLOGY [place] | Transaction, | | | | | [address] | Provider Unknown | | | | | [address] [place], [place] | | | | | | [address] | (Fax) | | | | | [phone] | | | +--------+ + + + [...] 2020 | Visit | | [address] [facility] | | | | | | [address] [place], [place] | | | | | | [address] | | | | | | | | +--------+---------+ + + + documented as of this encounter Procedures + +--------+ + + + | Procedure Name | Priori | Date/Time | Associated Diagnosis | Comments | | | ty | | | | + +--------+ + + + | EXTERNAL LAB: | Routin | 07/06/2018 | | Results for this | | TACROLIMUS LEVEL, | e | 9:20 AM | | procedure are in the | | LC-MS/MS | | PST | | results section. | + +--------+ + + + | EXTERNAL LAB: CBC | Routin | 07/06/2018 | | Results for this | | | e | 9:20 AM | | procedure are in the | | | | PST | | results section. | + +--------+ + + + | URINALYSIS, | Routin | 07/06/2018 | | Results for this | | MICROSCOPIC ONLY | e | 9:20 AM | | procedure are in the | | | | PST | | results section. | + +--------+ + + + | CULTURE, URINE | Routin | 07/06/2018 | | Results for this | | | e | 9:20 AM | | procedure are in the | | | | PST | | results section. | + +--------+ + + + | MAGNESIUM | Routin | 07/06/2018 | | Results for this | | | e | 9:20 AM | | procedure are in the | | | | PST | | results section. | + +--------+ + + + | RENAL FUNCTION PANEL | Routin | 07/06/2018 | | Results for this | | | e | 9:20 AM | | procedure are in the | | | | PST | | results section. | + +--------+ + + + documented in this encounter Results Culture, Urine (07/06/2018 9:20 AM PST) + + | Specimen | [...] + + External Lab: Tacrolimus Level, LC-MS/MS (07/06/2018 9:20 AM PST) + +-------+ + + + | Component | Value | Ref Range | Performed | Pathologist | | | | | At | Signature | + +-------+ + + + | Tacrolimus | 8.5 | | EXTERNAL | | | Level [...] + +---------+ + + Urinalysis, Microscopic Only (07/06/2018 9:20 AM PST) + + + + + [...] + + + + | Specific | 1.015 | 1.005 - 1.030 | EXTERNAL | | | [place] | | | LAB | | + [...] + +---------+ + + External Lab: CBC (07/06/2018 9:20 AM PST) + + + + + + | Component | Value | Ref Range | Performed | Pathologist | | | | | At | Signature | + + + + + + | WBC | 2.5 (A) | 4.5 - 11.0 10 | EXTERNAL | | | | | | LAB | | + + + + + + | RED CELL | 4.72 | 4.3 - 5.7 10 | EXTERNAL | | | COUNT | | | LAB | | + + + + + + | Hgb | 13.1 (A) | 13.5 - 18.0 | EXTERNAL | | | | | | LAB | | + + + + + + | Hematocrit, | 41.1 | 41 - 50 % | EXTERNAL | | | POC | | | LAB | | + + + + + + | MCV | 87.1 [...] + + + + | Platelet | 156 | 140 - 440 K/ L | EXTERNAL | | | Count | | | LAB | | | Plasma | | | | | + + + + + + | RDW-CV | 14.8 [...] + + + | % Segmented | 52.7 | 39 - 80 % | EXTERNAL | | | | | | LAB | | | Neutrophils | | | | | + + + + + + | % | 30.3 | 24 - 44 % | EXTERNAL | | | Lymphocytes | | | LAB | | + + + + + + | % Monocytes | 15.3 (A) | 0 - 12 % | [...] | | + +---------+ + + Magnesium (07/06/2018 9:20 AM PST) + +---------+ + + + [...] + +---------+ + + Renal Function Panel (07/06/2018 9:20 AM PST) + + + + + + | Component | Value | Ref Range | Performed | Pathologist | | | | | At | Signature | + + + + + + | Glucose, | 137 (A) | 70 - 100 mg/dL | EXTERNAL | | | Fasting | | | LAB | | + + + + + + | BUN | 21 | 6 - 23 mg/dL | EXTERNAL | | | | | | LAB | | + + + + + + | Creatinine | 1.63 (A) | 0.70 - 1.33 | EXTERNAL | | | | | mg/dL | LAB | | + + + + + + | PHOSPHORUS | 3.2 | 2.5 - 5.0 mg/dL | EXTERNAL | | | | | | LAB | | + + + + + + | Albumin | 3.3 (A) | 3.5 - 5.0 | EXTERNAL | | | | | | LAB | | + + + + + + | Na | 134 | 132 - 143 | EXTERNAL | | | | | mmol/L | LAB | | + + + + + + | K | 4.1 | 3.6 - 5.1 | EXTERNAL | | | | | mmol/L | LAB | | + + + + + + | Cl | 101 | 95 - 112 mmol/L | EXTERNAL | | | | | | LAB | | + + + + + + | CO2 | 27 | 19 - 31 mmol/L | EXTERNAL | | | | | | LAB | | + + + + + + | Anion Gap | 10.1 | 7 - 21 mmol/L | EXTERNAL | | | | | | LAB | | + + + + + + | eGFR if not | | | EXTERNAL | | | | | | LAB | | | [place] | | | | | + + + + + + | Phosphorus, | | | EXTERNAL | | | Inorganic | | | LAB | | + + + + + + | BUN/Creatin | 12.9 | 3.0 - 28.6 | EXTERNAL | | | ine Ratio | | | LAB | | + + + + + + | Calcium | 8.6 | 8.5 - 10.3 | EXTERNAL | | | | | mg/dL | LAB | | + + + + + + | Estimated | 44 (A) | 60 - 140 mg/dL | [...]
--- OUTSIDE RECORDS SUMMARY | ~2019-05-09 | XMS | Encounter Summary ---
Demographics + + + | Address | [address] | | | [place] [address] | + + + | Home Phone [...] | [facility] [employer] [facility] | + + [...] Team Providers + +------+ + | Care Coiled Coil Inspector Name | Role | Phone | [...] | | | | | [place], | | | | | | [place] [address] | | | +--------+ + + + [...] + + | [facility] - | [address] | [place] [address] | | | IMMUNOGENETICS/TRANS | [address] | | | | PLANT LABORATORY | | | | + + + + + documented in this encounter Visit Diagnoses Not on filedocumented in this encounter"
--- OUTSIDE RECORDS SUMMARY | ~2019-05-09 | XMS | Encounter Summary ---
Demographics + + + | Address | [address] | | | [place] [address] | + + + | Home Phone [...] + + + | Author | [facility] | | | and [place] | + + + | Organization | [facility] | | | [...] Team Providers + +------+ + | Care Electroplater Helper Name | Role | Phone | + +------+ + PCP | Unavailable | + +------+ + Encounter Details +--------+ + + + + | Date | Type | Department | Care Team | Description | +--------+ + + + + | 10/26/ | Hospital | [facility] | Jewel Yanez | PNEUMONIA, ORGANISM | | 2010 | Encounter | CONVERSION [address]P [address] | [place] [id number] | UNSPECIFIED; | | | | [address] | [address] | Unspecified | | | | [place], [place] | [place], [place] | circulatory system | | | | [address] | [address] | disorder; Other | | | | [phone] | [phone] | Specified | | | | | [...] Visit | | [address] [facility] | | | | | | [address] [place] | | | | | | [address] | | | | | | | [...] Performed At | + + + | [facility] [address] Ph: | | | Patient Name: NIK MA Date of : | | | 1960 Medical Record: [id number] Account: [id number] | | | Exam Date/Time: 10/26/2010 13:40 Ordering | | | Physician: ALEXX GUTIERREZ Order Detail: [id number] Exam Description: US | | | UPPER [...] - 01/05/2019 5:11 PM PDT | | [facility] | | [facility] [address] | | | | | | Patient Name: NIK MA | | Date of : 1960 | | Medical Record: [id number] | | Account: [id number] | | | | | | Exam [...]
--- OUTSIDE RECORDS SUMMARY | ~2019-05-09 | XMS | Encounter Summary ---
Demographics + + + | Address | [address] | | | [place] [address] | + + + | Home Phone [...] Team Providers + +------+ + | Care Windows Server Specialist Name | Role | Phone | + +------+ + | Oziel Michael MD | PCP | | + +------+ + Encounter Details +--------+ + + + + | Date | Type | Department | Care Team | Description | +--------+ + + + + | 10/11/ | Orders Only | [facility] | Adrian Shaffer MD | | | 2010 | | [facility] | [address] | | | | | CLINICAL LABORATORY | [place], [place] | | | | | [address] | [address] | | | | | [place], [place] | [phone] | | | | | [address] | | | | | | [phone] | | | +--------+ + + + [...] | | | | | | [address] [place] | | | | | | [address] | | | | | | | [...] | Testing performed | | | at [facility];[address] [place] [address];[place] [address] SPECIAL REQUESTS | | | LAC | | | Testing performed at [facility];[address] [place], [place] [address] [place] [address] | | | CULTURE NO GROWTH IN 5 DAYS. | | | Testing | | | performed at [facility];[address] [place] [address] REPORT STATUS | | | 10/17/2010 FINAL [...]
--- OUTSIDE RECORDS SUMMARY | ~2019-05-09 | XMS | Encounter Summary ---
Demographics + + + | Address | [address] | | | [place] [address] | + + + | Home Phone [...] Team Providers + +------+ + | Care Color Finisher Name | Role | Phone | + +------+ + | Oziel Michael MD | PCP | | + +------+ + Encounter Details +--------+ + + + + | Date | Type | Department | Care Team | Description | +--------+ + + + + | 11/06/ | Orders Only | [facility] | Alexx Gutierrez MD | | | 2019 | | NEPRHOLOGY [place] | [address] | | | | | [address] | [address] [place], [place] | | | | | [address] [place], [place] | [address] | | | | | [address] | | | | | | [phone] | | | +--------+ + + + [...] 2020 | Visit | | [address] [facility] | | | | | | [address] [place] | | | | | | [address] | | | | | | | | +--------+---------+ + + + documented as of this encounter Visit Diagnoses Not on filedocumented in this encounter"
--- OUTSIDE RECORDS SUMMARY | ~2019-05-09 | XMS | Encounter Summary ---
Demographics + + + | Address | [address] | | | [place] [address] | + + + | Home Phone [...] + + + | Author | [facility] | | | and [place] | + + + | Organization | [facility] | | | and [...] Team Providers + +------+ + | Care Mapping Analyst Name | Role | Phone | + +------+ + | Oziel Michael MD | PCP | | + +------+ + Encounter Details +--------+ + + + + | Date | Type | Department | Care Team | Description | +--------+ + + + + | 05/27/ | Orders Only | [facility] | Conversion | | | 2016 | | NEPHROLOGY [place] | Transaction, | | | | | [address] | Provider Unknown | | | | | [address] [place], [place] | | | | | | [address] | (Fax) | | | | | [phone] | | | +--------+ + + + [...] 2019 | Visit | | [address] [facility] | | | | | | 160 [place], [place] | | | | | | [address] | | | | | | | [...] - 1.030 | EXTERNAL | | | [place] | | | LAB | | [...] | | | LAB | | | [facility] | | | | | + + [...]
--- OUTSIDE RECORDS SUMMARY | ~2019-05-09 | XMS | Encounter Summary ---
Demographics + + + | Address | [address] | | | [place] [address] | + + + | Home Phone [...] Team Providers + +------+ + | Care Inorganic Chemistry Professor Name | Role | Phone | + +------+ + PCP | Unavailable | + +------+ + Encounter Details +--------+ + + + + | Date | Type | Department | Care Team | Description | +--------+ + + + + | 03/05/ | Hospital | [facility] | Conversion | Venous pressure | | 2013 | Encounter | CENTER CV INTRA OP | Transaction, | increased | | | | [address] | Provider Unknown | | | | | [place], [place] | [phone] | | | | | [address] | | | | | | [phone] | Alexx Gutierrez MD | | | | | | [address] [place] | | | | | | [address] [place], [place] | | | | | | [address] | | | | | | | [...] | Visit | | [address] [facility] | | | | | | [address] [place] | | | | | | [address] | | | | | | | [...] | | adequate conscious sedation and independent mcfp | | | supervision performed throughout the [...] | using micropuncture needle and exchanged for 4-Zimbabwean micropuncture | | | sheath. Initial fistula pressure was obtained and fistulogram | | | obtained from the right cubital fossa to the right atrium. Given | | | the severe in-stent restenosis in mid left cephalic vein, I decided to | | | perform angioplasty of the venous lesion. 4-Zimbabwean micropuncture | | | sheath was exchanged for 6-Zimbabwean short sheath over a 0.035, angled | [...] Rad Conversion - 01/04/2019 11:57 PM PDT [facility] | | [id number]/22/2013 3:33 PM HISTORY:52 years. Male. With chronic [...] | | adequate conscious sedation and independent mcfp supervision performed | | throughout the procedure. [...] | | micropuncture needle and exchanged for 4-Zimbabwean micropuncture sheath. Initial fistula | | pressure was obtained and fistulogram obtained from the right cubital fossa to the | | right atrium. Given the severe in-stent restenosis in mid left cephalic vein, I decided | | to perform angioplasty of the venous lesion. 4-Zimbabwean micropuncture sheath was | | exchanged for 6-Zimbabwean short sheath over a 0.035, angled Glidewire. [...] | | adequate conscious sedation and independent mcfp | | | supervision performed throughout the [...] | using micropuncture needle and exchanged for 4-Zimbabwean micropuncture | | | sheath. Initial fistula pressure was obtained and fistulogram | | | obtained from the right cubital fossa to the right atrium. Given | | | the severe in-stent restenosis in mid left cephalic vein, I decided to | | | perform angioplasty of the venous lesion. 4-Zimbabwean micropuncture | | | sheath was exchanged for 6-Zimbabwean short sheath over a 0.035, angled | [...] Conversion - 01/04/2019 11:57 PM PDT [facility] | | [id number]/22/2013 3:33 PM HISTORY:52 years. Male. With chronic [...] | | adequate conscious sedation and independent mcfp supervision performed | | throughout the procedure. [...] | | micropuncture needle and exchanged for 4-Zimbabwean micropuncture sheath. Initial fistula | | pressure was obtained and fistulogram obtained from the right cubital fossa to the | | right atrium. Given the severe in-stent restenosis in mid left cephalic vein, I decided | | to perform angioplasty of the venous lesion. 4-Zimbabwean micropuncture sheath was | | exchanged for 6-Zimbabwean short sheath over a 0.035, angled Glidewire. [...]
--- OUTSIDE RECORDS SUMMARY | ~2019-05-09 | XMS | Encounter Summary ---
Demographics + + + | Address | [address] | | | [place] [address] | + + + | Home Phone [...] + + + | Author | [facility] | | | and [place] | + + + | Organization | [facility] | | | [...] Team Providers + +------+ + | Care Insurance Follow Up Rep Name | Role | Phone | + +------+ + PCP | Unavailable | + +------+ + Encounter Details +--------+ + + + + | Date | Type | Department | Care Team | Description | +--------+ + + + + | 11/05/ | Orders Only | [facility] | Alexx Gutierrez MD | | | 2019 | | NEPHROLOGY [place] | [address] [place] | | | | | [address] [place] | [address] [place], [place] | | | | | [address] [place], [place] | [address] | | | | | [address] | | | | | | [phone] | | | +--------+ + + + [...] 2019 | Visit | | [address] [facility] | | | | | | [address] [facility] | | | | | | [address] | | | | | | | [...] | | | LAB | | | [place] | | | | | + + [...]
--- OUTSIDE RECORDS SUMMARY | ~2019-05-09 | XMS | Encounter Summary ---
Demographics + + + | Address | [address] | | | [place] [address] | + + + | Home Phone | | + + + | Preferred Language | Unknown | + + + | Marital Status | Single | + + + | Buddhist Affiliation | Unknown | + + + | Race | Black or | + + + | Ethnic Group | Not or | + + + Author + + + | Author | [facility] [employer] [facility] | + [...] Team Providers + +------+ + | Care Cephalometric Tracer Name | Role | Phone | + [...] | | | | | [address] [place], | | | | | | [place] [address] | | | +--------+ + + + [...] + + + | [facility] - | [address] | [place] [address] | | | IMMUNOGENETICS/TRANS | [address] | | | | PLANT LABORATORY | | | | + + + + + documented in this encounter Visit Diagnoses Not on filedocumented in this encounter"
--- OUTSIDE RECORDS SUMMARY | ~2019-05-09 | XMS | Encounter Summary ---
Demographics + + + | Address | [address] | | | [place] [address] | + + + | Home Phone [...] + + | Author | [facility] [employer] [facility] | + + [...] Team Providers + +------+ + | Care Compliance Aide Name | Role | Phone | + +------+ + | Oziel Michael MD | PCP | | + +------+ + Encounter Details +--------+ + + + + | Date | Type | Department | Care Team | Description | +--------+ + + + + | 12/16/ | Lab | LAB IMMUNOGENETIC | | | | 2015 | Requisition | [facility] | | | | | | [address] | | | | | | [place], | | | | | | [place] [address] | | | +--------+ + + + [...] FLOW HLA AB PRA | Routin | 12/17/2015 | | | | SCREEN I/II | e | 2:23 PM | | | | | | PDT | | | + +--------+ + + + documented in this encounter Results LIT FLOW HLA AB PRA SCREEN I/II (12/17/2015 2:23 PM PDT) + + | Specimen | + + | Blood - Blood | | (substance) | + + + + + + + | Performing | Address | City/State/Zipcode | Phone Number | | Organization | | | | + + + + + | [facility] - | [address] | [place] [address] | | | IMMUNOGENETICS/TRANS | [address] | | | | PLANT LABORATORY | | | | + + + + + documented in this encounter Visit Diagnoses Not on filedocumented in this encounter"
--- OUTSIDE RECORDS SUMMARY | ~2019-05-09 | XMS | Encounter Summary ---
Demographics + + + | Address | [address] | | | [place] [address] | + + + | Home Phone [...] + + + | Author | [facility] | | | and [place] | + + + | Organization | [facility] | | | [...] Team Providers + +------+ + | Care Pail Tester Name | Role | Phone | [...] + + | 01/31/ | Refill | [facility] | Alexx Gutierrez MD | Medication Refill | | 2019 | | NEPRHOLOGY [place] | [address] | | | | | [address] | [address] [place], [place] | | | | | [address] [place], [place] | [address] | | | | | [address] | | | | | | [phone] | | | +--------+--------+ + + + [...] 2020 | Visit | | [address] [facility] | | | | | | [address] [place], [place] | | | | | | [address] | | | | | | | | +--------+---------+ + + + documented as of this encounter Visit Diagnoses + + | Diagnosis | + + | Kidney replaced by transplant - Primary | + + | Persistent proteinuria Proteinuria | + + | skilled nursing (current) use of 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 | + + documented in this encounter"
--- OUTSIDE RECORDS SUMMARY | ~2019-05-09 | XMS | Encounter Summary ---
Demographics + + + | Address | [address] | | | [place] [address] | + + + | Home Phone [...] | [facility] [employer] [facility] | + + [...] Team Providers + +------+ + | Care Clothing Manager Name | Role | Phone | [...] | | | | | [place], | | | | | | [place] [address] | | | +--------+ + + + [...] [facility] - | [address] | [place] [address] | | | IMMUNOGENETICS/TRANS | [address] | | | | PLANT LABORATORY | | | | + + + + + documented in this encounter Visit Diagnoses Not on filedocumented in this encounter"
--- OUTSIDE RECORDS SUMMARY | ~2019-05-09 | XMS | Encounter Summary ---
Demographics + + + | Address | [address] | | | [place] [address] | + + + | Home Phone | | + + + | Preferred Language | Unknown | + + + | Marital Status | Single | + + + | Restorationism Affiliation | Unknown | + + + | Race | Black or | + + + | Ethnic Group | Not or | + + + Author + + + | Author | [facility] [facility] | + + + | [...] Team Providers + +------+ + | Care Seeing Eye Dog Trainer Name | Role | Phone | + [...] LAB | | | | | | [address] | | | | | | [place], | | | | | | [place] [address] | | | +--------+ + + + [...] + + | [facility] - | [address] | [place] [address] | | | IMMUNOGENETICS/TRANS | [address] [...] [facility] - | [address], | [place] [address] | | | IMMUNOGENETICS/TRANS | [address] | | | | PLANT LABORATORY | | | | + + + + + documented in this encounter Visit Diagnoses + + | Diagnosis | + + | End stage renal disease (HCC) End stage renal disease | + + documented in this encounter"
--- OUTSIDE RECORDS SUMMARY | ~2019-05-09 | XMS | Encounter Summary ---
Demographics + + + | Address | [address] | | | [place] [address] | + + + | Home Phone | | + + + | Preferred Language | Unknown | + + + | Marital Status | Unknown | + + + | Sikh Affiliation | Unknown | + + + | Race | Unknown | + + + | Ethnic Group | Unknown | + + + Author + + + | Author | [facility] | | | and [place] | + + + | Organization | [facility] | | [...] Team Providers + +------+ + | Care Vacuum Evaporation Operator Name | Role | Phone | + +------+ + PCP | Unavailable | + +------+ + Encounter Details +--------+ + + + + | Date | Type | Department | Care Team | Description | +--------+ + + + + | 07/06/ | Hospital | [facility] | Conversion | ESRD (end stage | | 2013 | Encounter | CENTER CV INTRA OP | Transaction, | renal disease) ([facility]) | | | | [address] | Provider Unknown | | | | | [place], [place] | [phone] | | | | | [address] | | | | | | [phone] | Alexx Gutierrez MD | | | | | | [address] [place] | | | | | | [address] [place], [place] | | | | | | [address] | | | | | | | [...] 07/06/121854 Date of Service: 07/06/121853 Status: Signed Websphere Commerce Consultant: Kely Wilkerson Pt tolerating juice well, vss, [...] [place] | | | | | | [address] | | | | | | | [...] conscious sedation and | | | independent half-way supervision performed throughout the | | | [...] needle and | | | exchanged for 4-Algerian micropuncture sheath. Initial fistula | | | pressure was obtained and fistulogram obtained from the left cubital | | | fossa to the right atrium. Given the tandem preocclusive stenosis | | | in proximal left cephalic vein and middle left cephalic vein (in-stent | | | restenosis), I decided to perform angioplasty of the venous lesions. | | | 4-Algerian micropuncture sheath was exchanged for 6-Algerian short | | | sheath over a [...] - 01/04/2019 11:57 PM PDT [facility] | | FISTULAGRAM07/06/2012 6:28 PM HISTORY:53 [...] adequate conscious sedation and independent | | half-way supervision performed throughout the procedure. PROCEDURE: Informed [...] accessed using micropuncture needle and exchanged for 4-Algerian | | micropuncture sheath. Initial fistula pressure was obtained and fistulogram obtained | | from the left cubital fossa to the right atrium. Given the tandem preocclusive stenosis | | in proximal left cephalic vein and middle left cephalic vein (in-stent restenosis), I | | decided to perform angioplasty of the venous lesions. 4-Algerian micropuncture sheath was | | exchanged for 6-Algerian short sheath over a 0.035, angled Glidewire. [...] conscious sedation and | | | independent half-way supervision performed throughout the | | | [...] needle and | | | exchanged for 4-Algerian micropuncture sheath. Initial fistula | | | pressure was obtained and fistulogram obtained from the left cubital | | | fossa to the right atrium. Given the tandem preocclusive stenosis | | | in proximal left cephalic vein and middle left cephalic vein (in-stent | | | restenosis), I decided to perform angioplasty of the venous lesions. | | | 4-Algerian micropuncture sheath was exchanged for 6-Algerian short | | | sheath over a [...] Rad Conversion - 01/04/2019 11:57 PM PDT [facility] | | FISTULAGRAM07/06/2012 6:28 PM HISTORY:53 [...] adequate conscious sedation and independent | | half-way supervision performed throughout the procedure. PROCEDURE: Informed [...] accessed using micropuncture needle and exchanged for 4-Algerian | | micropuncture sheath. Initial fistula pressure was obtained and fistulogram obtained | | from the left cubital fossa to the right atrium. Given the tandem preocclusive stenosis | | in proximal left cephalic vein and middle left cephalic vein (in-stent restenosis), I | | decided to perform angioplasty of the venous lesions. 4-Algerian micropuncture sheath was | | exchanged for 6-Algerian short sheath over a 0.035, angled Glidewire. [...]
--- OUTSIDE RECORDS SUMMARY | ~2019-05-09 | XMS | Encounter Summary ---
Demographics + + + | Address | [address] | | | [place] [address] | + + + | Home Phone [...] + + + | Author | [facility] | + + + [...] Team Providers + +------+ + | Care Applications Project Manager Name | Role | Phone | + +------+ + | Oziel Michael MD | PCP | | + +------+ + Encounter Details +--------+ + + + + | Date | Type | Department | Care Team | Description | +--------+ + + + + | 07/20/ | Ancillary | LAB IMMUNOGENETIC | | | | 2012 | Orders | AND TRANSPLANT LAB | | | | | | [address] | | | | | | [place], | | | | | | [place] [address] | | | +--------+ + + + [...] FLOW HLA AB PRA | Routin | 07/20/2012 | | | | SCREEN I/II | e | 12:14 PM | | | | | | PST | | | + +--------+ + + + documented in this encounter Results LIT FLOW HLA AB PRA SCREEN I/II (07/20/2012 12:14 PM PST) + + | Specimen | + + | Blood - Blood | + + + + + + + | Performing | Address | City/State/Zipcode | Phone Number | | Organization | | | | + + + + + | [facility] - | [address] | [place] [address] | | | IMMUNOGENETICS/TRANS | [address] | | | | [facility] | | | | + + + + + documented in this encounter Visit Diagnoses Not on filedocumented in this encounter"
--- OUTSIDE RECORDS SUMMARY | ~2019-05-09 | XMS | Encounter Summary ---
Demographics + + + | Address | [address] | | | [place] [address] | + + + | Home Phone [...] + | Author | [facility] | + + [...] Team Providers + +------+ + | Care Carriage Operator Name | Role | Phone | [...] | | | | | [address] [place], | | | | | | [place] [address] | | | +--------+ + + + [...] + + + | [facility] - | [address] | [place] [address] | | | IMMUNOGENETICS/TRANS | [address] | | | | [facility] | | | | + + + + + documented in this encounter Visit Diagnoses Not on filedocumented in this encounter"
--- OUTSIDE RECORDS SUMMARY | ~2019-05-09 | XMS | Encounter Summary ---
Demographics + + + | Address | [address] | | | [place] [address] | + + + | Home Phone | | + + + | Preferred Language | Unknown | + + + | Marital Status | Single | + + + | Jew Affiliation | Unknown | + + + | Race | Black or | + + + | Ethnic Group | Not or | + + + Author + + + | Author | [facility] [employer] [facility] | + [...] Team Providers + +------+ + | Care Technical Solutions Engineer Name | Role | Phone | [...] | | | | | [address] [place] [place], | | | | | | [place] [address] | | | +--------+ + + + [...] [facility] - | [address] | [place] [address] | | | IMMUNOGENETICS/TRANS | [address] | | | | [facility] | | | | + + + + + documented in this encounter Visit Diagnoses Not on filedocumented in this encounter"
--- OUTSIDE RECORDS SUMMARY | ~2019-05-09 | XMS | Encounter Summary ---
Demographics + + + | Address | [address] | | | [place] [address] | + + + | Home Phone | | + + + | Preferred Language | Unknown | + + + | Marital Status | Single | + + + | Uatsdin Affiliation | Unknown | + + + | Race | Black or | + + + | Ethnic Group | Not or | + + + Author + + + | Author | [facility] | + + + [...] Team Providers + +------+ + | Care Grievance And Appeals Coordinator Name | Role | Phone | + +------+ + | Oziel Michael MD | PCP | | + +------+ + Encounter Details +--------+ + + + + | Date | Type | Department | Care Team | Description | +--------+ + + + + | 04/19/ | Ancillary | LAB IMMUNOGENETIC | | | | 2011 | Orders | AND TRANSPLANT LAB | | | | | | [address] | | | | | | [place], | | | | | | [place] [address] | | | +--------+ + + + [...] | LIT SERA PRE-TX | Routin | 04/19/2012 | | | | W/INHIBITORS | e | 4:29 PM | | | | | | PST | | | + +--------+ + + + | LIT FLOW HLA AB | Routin | 04/19/2012 | | | | QUICK SCREEN I/II | e | 4:29 PM | | | | | | PST | | | + +--------+ + + + documented in this encounter Results LIT SERA PRE-TX W/INHIBITORS (04/19/2012 4:29 PM PST) + + | Specimen | + + | Blood - Blood | + + + + + + + | Performing | Address | City/State/Zipcode | Phone Number | | Organization | | | | + + + + + | [facility] - | [address] | [place] [address] | | | IMMUNOGENETICS/TRANS | [address] | | | | [facility] | | | | + + + + + LIT FLOW HLA AB QUICK SCREEN I/II (04/19/2012 4:29 PM PST) + + | Specimen | + + | Blood - Blood | + + + + + + + | Performing | Address | City/State/Zipcode | Phone Number | | Organization | | | | + + + + + | [facility] - | [address] | [place] [address] | | | IMMUNOGENETICS/TRANS | [address] | | | | [facility] | | | | + + + + + documented in this encounter Visit Diagnoses Not on filedocumented in this encounter"
--- OUTSIDE RECORDS SUMMARY | ~2019-05-09 | XMS | Encounter Summary ---
Demographics + + + | Address | [address] | | | [place] [address] | + + + | Home Phone | | + + + | Preferred Language | Unknown | + + + | Marital Status | Unknown | + + + | Druze Affiliation [...] Team Providers + +------+ + | Care Piercing Mill Operator Name | Role | Phone | [...] | | | | [place] | [phone] | | | | | [address] | | | | | | [phone] | | | +--------+ + + + [...] [place] | | | | | | [address] | | | | | | | | +--------+---------+ + + + documented as of this encounter Visit Diagnoses Not on filedocumented in this encounter"
--- OUTSIDE RECORDS SUMMARY | ~2019-05-09 | XMS | Encounter Summary ---
Demographics + + + | Address | [address] | | | [place] [address] | + + + | Home Phone | | + + + | Preferred Language | Unknown | + + + | Marital Status | Unknown | + + + | Restorationist Affiliation | Unknown | + + + [...] Team Providers + +------+ + | Care Embedded Nurse Name | Role | Phone | + +------+ + PCP | Unavailable | + +------+ + Encounter Details +--------+ + + + + | Date | Type | Department | Care Team | Description | +--------+ + + + + | 06/01/ | Orders Only | [facility] | Conversion | | | 2018 | | NEPHROLOGY [place] | Transaction, | | | | | [address] | Provider Unknown | | | | | [address] [place], [place] | | | | | | [address] | (Fax) | | | | | [phone] | | | +--------+ + + + [...] | | | | | | [address] [place], [place] | | | | | | [address] | | | | | | | [...] - 1.030 | EXTERNAL | | | Prospect | | | LAB | | + [...]
--- OUTSIDE RECORDS SUMMARY | ~2019-05-09 | XMS | Encounter Summary ---
Demographics + + + | Address | [address] | | | [place] [address] | + + + | Home Phone | | + + + | Preferred Language | Unknown | + + + | Marital Status | Unknown | + + + | Episcopal Affiliation | Unknown | + + + | Race | Unknown | + + + | Ethnic Group | Unknown | + + + Author + + + | Author | [facility] | | | and [place] | + + + | Organization | [facility] | | [...] Team Providers + +------+ + | Care Advisory Services Associate Name | Role | Phone | + +------+ + | Oziel Michael MD | PCP | | + +------+ + Encounter Details +--------+ + + + + | Date | Type | Department | Care Team | Description | +--------+ + + + + | 05/10/ | Orders Only | [facility] | Alexx Gutierrez MD | | | 2017 | | NEPRHOLOGY [place] | [address] | | | | | [address] | [address] [place], [place] | | | | | [address] [place], [place] | [address] | | | | | [address] | | | | | | [phone] | | | +--------+ + + + [...] 2019 | Visit | | [address] [address] | | | | | | [address] [place] | | | | | | [address] | | | | | | | [...] | | | LAB | | | [place] | | | | | + + [...]
--- OUTSIDE RECORDS SUMMARY | ~2019-05-09 | XMS | Encounter Summary ---
Demographics + + + | Address | [address] | | | [place] [address] | + + + | Home Phone | | + + + | Preferred Language | Unknown | + + + | Marital Status | Single | + + + | Yazdanism Affiliation | Unknown | + + + | Race | Black or | + + + | Ethnic Group | Not or | + + + Author + + + | Author | [facility] | + + + [...] Team Providers + +------+ + | Care Cardiology Consultant Name | Role | Phone | + +------+ + | Oziel Michael MD | PCP | | + +------+ + Encounter Details +--------+ + + + + | Date | Type | Department | Care Team | Description | +--------+ + + + + | 03/20/ | Ancillary | LAB IMMUNOGENETIC | | | | 2012 | Orders | AND TRANSPLANT LAB | | | | | | [address] | | | | | | [place] [place], | | | | | | [place] [address] | | | +--------+ + + + [...] FLOW HLA AB PRA | Routin | 03/20/2013 | | | | SCREEN I/II | e | 1:31 PM | | | | | | PST | | | + +--------+ + + + documented in this encounter Results LIT FLOW HLA AB PRA SCREEN I/II (03/20/2013 1:31 PM PST) + + | Specimen | + + | Blood - Blood | + + + + + + + | Performing | Address | City/State/Zipcode | Phone Number | | Organization | | | | + + + + + | [facility] - | [address] | [place] [address] | | | IMMUNOGENETICS/TRANS | [address] | | | | [facility] | | | | + + + + + documented in this encounter Visit Diagnoses Not on filedocumented in this encounter"
--- OUTSIDE RECORDS SUMMARY | ~2019-05-09 | XMS | Encounter Summary ---
Demographics + + + | Address | [address] | | | [place] [address] | + + + | Home Phone | | + + + | Preferred Language | Unknown | + + + | Marital Status | Unknown | + + + | Rastafari Affiliation | Unknown | + + + | Race | Unknown | + + + | Ethnic Group | Unknown | + + + Author + + + | Author | [facility] | | | and [place] | + + + | Organization | [facility] | | [...] Team Providers + +------+ + | Care Strategic Marketing Associate Name | Role | Phone | + +------+ + PCP | Unavailable | + +------+ + Encounter Details +--------+ + + + + | Date | Type | Department | Care Team | Description | +--------+ + + + + | 01/13/ | Hospital | [facility] | Conversion | ESRD (end stage | | 2015 | Encounter | CENTER CV INTRA OP | Transaction, | renal disease) ([facility]) | | | | [address] | Provider Unknown | | | | | [place], [place] | [phone] | | | | | [address] | | | | | | [phone] | Noé Malik MD | | | | | | [address] | | | | | | [place], [place] | | | | | | [id number] | | | | | | | [...] Note by Alice Conrad RN at 01/13/15 3321 Author: Alice Conrad RN Service: Interventional Radiology Author Type: Registered Nu rse Filed: 01/13/15 5904 Date of Service: 01/13/151342 Status: Signed Cash Teller: Alice Conrad RN (Registered Nurse) Pt tolerated juice well post-procedure, discharge instructions given both written and orall y, will d/c by ambulation with family. onver svitlana Transaction, Provider Unknown - 01/13/2015 1:20 PM PDT Nurse Progress Note by Kathleen Ag RN at 01/13/15 5559 Author: Kathleen Ag RN Service: (none) Author Type: Registered Nurse Filed: 01/13/151319 Date of Service: 01/13/151319 Status: Signed Cash Teller: Kathleen Ag RN (Registered Nurse) Purse string suture removed, hemostasis obtained, dressing applied. docume nted in this encounter Plan of Treatment +--------+---------+ + + + | Date | Type | Specialty | Care Team | Description | +--------+---------+ + + + | 05/20/ | Office | Nephrology | Alexx Gutierrez MD | | | 2019 | Visit | | [address] [facility] | | | | | | [address] [place], [place] | | | | | | [address] | | | | | | | [...] | | | COMPARISON STUDIES: 06/26/2014 PRIMARY RESIDENTIAL SERVICE TECHNICIAN: Noé Malik, | | | , PhD, [...] | | was exchanged to a 6 Malagasy sheath. An 8mm angioplasty balloon was | [...] fistula. COMPARISON | | STUDIES: 06/26/2014 PRIMARY RESIDENTIAL SERVICE TECHNICIAN: Noé Malik MD, PhD, RPVI OPERATIONS:1. | [...] The microsheath was exchanged to a 6 Malagasy sheath. An 8mm angioplasty | | balloon [...] EXTERNAL | | | | performed at [facility] | K/uL | LAB | | | | [address];[place], [place] | | | | | | [address] | | | | + + + + + + | RED CELL | 4.56Comment: Testing | 4.20 - 5.70 | EXTERNAL | | | COUNT | performed at [facility];[address] | M/uL | LAB | | | | [address];[place] | | | | | | [address] | | | | + + + + + + | Hgb | 13.9Comment: Testing | 13.2 - 17.0 | EXTERNAL | | | | performed at [facility];[address] | g/dL | LAB | | | | [address];[place] | | | | | | [address] | | | | + + + + + + | Hematocrit, | 43.4Comment: Testing | 39.0 - 50.0 % | EXTERNAL | | | POC | performed at [facility];[address] | | LAB | | | | [address];[place] | | | | | | [address] | | | | + + + + + + | MCV | 95.1Comment: Testing | 80.0 - 100.0 fl | EXTERNAL | | | | performed at [facility];[address] | | LAB | | | | [address];[place] | | | | | | [address] | | | | + + + + + + | MCH | 30.5Comment: Testing | 27.0 - 34.0 pg | EXTERNAL | | | | performed at [facility];[address] | | LAB | | | | [address];[place] | | | | | | [address] | | | | + + + + + + | MCHC | 32.1Comment: Testing | 32.0 - 35.5 | EXTERNAL | | | | performed at [facility];[address] | g/dL | LAB | | | | [address];[place] | | | | | | [address] | | | | + + + + + + | RDW-CV | 49.4Comment: Testing | 37 - 53 fl | EXTERNAL | | | | performed at [facility];[address] | | LAB | | | | [address];[place] | | | | | | [address] | | | | + + + + + + | Platelet | 201Comment: Testing | 150 - 400 K/uL | EXTERNAL | | | Count | performed at [facility];[address] | | LAB | | | Plasma | [address];[place] | | | | | | [address] | | | | + + + + + + | MPV | 9.3Comment: Testing | fl | EXTERNAL | | | | performed at [facility];[address] | | LAB | | | | [address];[place] | | | | | | [address] | | | | + + + [...] | | | | | performed at [facility] | | | | | | [facility];[place] | | | | | | [address] | | | | + + + [...] EXTERNAL | | | | performed at [facility];[address] | mmol/L | LAB | | | | [address];[place] | | | | | | [address] | | | | + + + + + + | K | 4.8Comment: SLT | 3.5 - 4.9 | EXTERNAL | | | | HEMOLYSISTesting | mmol/L | LAB | | | | performed at [facility];[address] | | | | | | [address];[place] | | | | | | [address] | | | | + + + + + + | Cl | 94 (L)Comment: Testing | 99 - 109 mmol/L | EXTERNAL | | | | performed at [facility];[address] | | LAB | | | | [address];[place] | | | | | | [address] | | | | + + + + + + | CO2 | 32Comment: Testing | 23 - 32 mmol/L | EXTERNAL | | | | performed at [facility];[address] | | LAB | | | | [address];[place] | | | | | | [address] | | | | + + + + + + | Anion Gap | 14Comment: Testing | 5 - 20 mmol/L | EXTERNAL | | | | performed at [facility];[address] | | LAB | | | | [address];[place] | | | | | | [address] | | | | + + + + + + | Glucose, | 97Comment: Testing | 65 - 99 mg/dL | EXTERNAL | | | Fasting | performed at [facility];[address] | | LAB | | | | [address];[place] | | | | | | [address] | | | | + + + + + + | BUN | 42 (H)Comment: Testing | 8 - 25 mg/dL | EXTERNAL | | | | performed at [facility];[address] | | LAB | | | | [address];[place] | | | | | | [address] | | | | + + + + + + | Creatinine | 12 (H)Comment: Testing | 0.70 - 1.30 | EXTERNAL | | | | performed at [facility];[address] | mg/dL | LAB | | | | [address];[place] | | | | | | [address] | | | | + + + + + + | BUN/Creatin | 4Comment: Testing | | EXTERNAL | | | ine Ratio | performed at [facility];[address] | | LAB | | | | [address];[place] | | | | | | [address] | | | | + + + + + + | Calcium | 9.4Comment: Testing | 8.5 - 10.5 | EXTERNAL | | | | performed at [facility];[address] | mg/dL | LAB | | | | [address];[place] | | | | | | [address] | | | | + + + [...] | | | | | | at [facility];[address] [place] [address] | | | | | | [facility];[place] [address] | | | | + + + [...]
--- OUTSIDE RECORDS SUMMARY | ~2019-05-09 | XMS | Encounter Summary ---
Demographics + + + | Address | [address] | | | [place] [address] | + + + | Home Phone [...] Team Providers + +------+ + | Care Saddle And Side Wire Stitcher Name | Role | Phone | + +------+ + PCP | Unavailable | + +------+ + Encounter Details +--------+ + + + + | Date | Type | Department | Care Team | Description | +--------+ + + + + | 10/26/ | Hospital | [facility] | Conversion | ESRD (end stage | | 2012 | Encounter | CENTER CV INTRA OP | Transaction, | renal disease) ([facility]) | | | | [address] | Provider Unknown | | | | | [place], [place] | [phone] | | | | | [address] | | | | | | [phone] | Alexx Gutierrez MD | | | | | | [address] [place] | | | | | | [address] [place], [place] | | | | | | [address] | | | | | | | [...] Summaries by Zoya Mortensen MD at 10/27/11 1126 Author: Zoya Mortensen MD Service: (none) Author Type: Physician Filed: 10/27/11 5809 Date of Service: 10/27/111447 Status: Signed Professor Of Medicine: Zoya Mortensen MD (Physician) [facility] Service: Interventional Radiology Post-Procedure Discharge Note [...] Follow up: Alexx Gutierrez MD [address] [facility] [address] [facility] [address] Discharge Medications: Current Discharge Medication List CONTINUE these medications which have NOT CHANGED Details amlodipine (NORVASC) 10 MG tablet Take 10 mg by mouth daily. !! B Avvfhzp-O-Ahyjn Acid (STERLING-BRITT PO) Take by mouth daily. !! B Tzdvoyc-V-Ktbqp Acid (STERLING-BRITT) TABS Take 1 tablet by [...] times daily with meals. !! vitamin B aenisqi-S-oitbt acid (SUPER B VITAMINS) 0.8 MG TABS [...] 2019 | Visit | | [address] [facility] | | | | | | [address] [place] | | | | | | [address] | | | | | | | [...] conscious sedation and | | | independent jail supervision performed throughout the | | | [...] needle and | | | exchanged for 4-Palauan micropuncture sheath. Initial fistula | | | pressure was obtained and fistulogram obtained from the left cubital | | | fossa to the right atrium. Given the segmental, more than 80% | | | stenosis involving proximal left cephalic vein proximal to previously | | | placed metallic stent, I decided to perform angioplasty of the venous | | | lesion. 4-Palauan micropuncture sheath was exchanged for 6-Palauan | | | short sheath over a [...] Abhishek, Rad Conversion - 01/05/2019 9:02 AM [facility] | | FISTULAGRAM10/27/2011 2:14 PM HISTORY:52 [...] adequate conscious sedation and independent | | jail supervision performed throughout the procedure. PROCEDURE: Informed [...] accessed using micropuncture needle and exchanged for 4-Palauan | | micropuncture sheath. Initial fistula pressure was obtained and fistulogram obtained | | from the left cubital fossa to the right atrium. Given the segmental, more than 80% | | stenosis involving proximal left cephalic vein proximal to previously placed metallic | | stent, I decided to perform angioplasty of the venous lesion. 4-Palauan micropuncture | | sheath was exchanged for 6-Palauan short sheath over a 0.035, angled Glidewire. [...] conscious sedation and | | | independent jail supervision performed throughout the | | | [...] needle and | | | exchanged for 4-Palauan micropuncture sheath. Initial fistula | | | pressure was obtained and fistulogram obtained from the left cubital | | | fossa to the right atrium. Given the segmental, more than 80% | | | stenosis involving proximal left cephalic vein proximal to previously | | | placed metallic stent, I decided to perform angioplasty of the venous | | | lesion. 4-Palauan micropuncture sheath was exchanged for 6-Palauan | | | short sheath over a [...] adequate conscious sedation and independent | | jail supervision performed throughout the procedure. PROCEDURE: Informed [...] accessed using micropuncture needle and exchanged for 4-Palauan | | micropuncture sheath. Initial fistula pressure was obtained and fistulogram obtained | | from the left cubital fossa to the right atrium. Given the segmental, more than 80% | | stenosis involving proximal left cephalic vein proximal to previously placed metallic | | stent, I decided to perform angioplasty of the venous lesion. 4-Palauan micropuncture | | sheath was exchanged for 6-Palauan short sheath over a 0.035, angled Glidewire. [...]
--- OUTSIDE RECORDS SUMMARY | ~2019-05-09 | XMS | Encounter Summary ---
Demographics + + + | Address | [address] | | | [place] [address] | + + + | Home Phone [...] + + + | Author | [facility] | + + + | Organization | [facility] | + + + | Address | Unknown | + + + | Phone | Unavailable | + + + Support + + +---------+ + | Name | Relationship | Address | Phone | + + +---------+ + | Olesya Lamb | ECON | Unknown | | + + +---------+ + Care Team Providers + +------+ + | Care Dehydrating Press Operator Name | Role | Phone | [...] | | | | | [address] [place], | | | | | | [place] [address] | | | +--------+ + + + [...] + + + | [facility] - | [address] | [place] [address] | | | IMMUNOGENETICS/TRANS | [address] | | | | PLANT LABORATORY | | | | + + + + + documented in this encounter Visit Diagnoses Not on filedocumented in this encounter"
--- OUTSIDE RECORDS SUMMARY | ~2019-05-09 | XMS | Encounter Summary ---
Demographics + + + | Address | [address] | | | [place] [address] | + + + | Home Phone [...] [facility] | + + + | Organization [...] Team Providers + +------+ + | Care Counseling Aide Name | Role | Phone | + +------+ + | Oziel Michael MD | PCP | | + +------+ + Reason for Visit + + + | Reason | Comments | + + + | Examination Of Skin | New patient here for FBSE | + + + Intake Referral (Routine) +--------+ + + + + + | Status | Reason | Specialty | Diagnoses / | Referred By | Referred To | | | | | Procedures | Contact | Contact | +--------+ + + + + + | Closed | Specialty | Dermatology | Diagnoses | Alec, | Drm Surg | | | Services | | Kidney | Oziel B, | Outpt Hos | | | Required | | transplant | MD [address] | | | | | status | [place] | [address] | | | | | Procedures | [address] | Mailcode: | | | | | eval & treat | [place], | [address] [place] | | | | | | [place] [address] | for Health | | | | | | Phone: | and Healing, | | | | | | [phone] | Building [address], | | | | | | Fax: | 5th Floor | | | | | | [phone] | [place], [place] | | | | | | | [address] | | | | | | | Phone: | | | | | | | [phone] | | | | | | | Fax: | | | | | | | [phone] | +--------+ + + + + + Encounter Details +--------+---------+ + + + | Date | Type | Department | Care Team | Description | +--------+---------+ + + + | 08/17/ | Office | Dermatology | Carlos, | Viral warts, | | 2016 | Visit | Medical at [facility] 5th | Matty Cordova MD [address] | unspecified type | | | | Floor [address] | [address] | (Primary Dx); | | | | Ave Mailcode: [address] | [facility] [place] | Foreign body | | | | [facility] | [address] | granuloma of skin | | | | and Healing, | [phone] | and subcutaneous | | | | [facility] | | tissue | | | | Floor [place], [place] | | | | | | [address] | | | | | | [phone] | | | +--------+---------+ + + + Social History [...] + + documented as of this encounter Patient Instructions Patient Instructions Edvin NAIN Grimaldo - 08/17/2016 3:00 PM PDTSUNSCREEN APPLICATION AND UV PROTECTION ? Exposure to ultraviolet radiation is the leading cause of premature aging, and skin cance rs including melanoma. ? The [employer] (AAD) recommends you wear a wide-brimmed hat, sun gla sses and sun protective clothing. If you must be in the sun, it is recommended to use a Bro ad spectrum sunscreen (blocking both UVA and UVB) with a sun protection factor (SPF) of 30+ (even on cloudy days) and reapply every two hours, or after swimming or heavy perspiration. ? Sunscreens should be applied generously and evenly. One fluid ounce (or the equivalent o f a full shot glass) is the approximate amount of sunscreen required for each person each ti me sunscreen is applied. ? Sunscreens have an expiration date and once that date is reached, they may lose effective ness and should be discarded. ? Sunscreen is also important for blocking reflected UVR (Ultraviolet Radiation). Sand, con crete, snow, water, and other surfaces reflect UVR which has the same effect to your skin as direct sunlight. THE "ABCDE" RULE AND MELANOMA DETECTION Asymmetry - compare one half of the growth to the other half to determine if the halves are equal in size. Border - If the mole's border is irregular, notched, scalloped, or indistinct, it should be checked by a doctor. Color - Variation of color (e.g., more than one color or shade) within a mole is a suspicio us finding. Diameter - Any mole that has a diameter larger than a pencil's eraser should be checked by a doctor. Evolving - If a mole is changing in size, shape, color, elevation, surface texture or becom es itchy or painful, it should be checked by a doctor. Additional sunscreen and melanoma information is available at the following websites: http://www.[facility]/xd/health/services/dermatology/for-patients/health_info.cfm - [facility] Derm atology http://www.aad.org/public/sun/smart.html - AAD Website documented in this encounter Progress Notes Matty Gonzalez MD - 08/17/2016 3:00 PM PDTFormatting of this note might be differ ent from the original. 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 male referred by Oziel Michael for evaluation of skin exa mination in setting of chronic immunosuppression. Has had no health concerns since transpla ntation. Reports a wart on his right dorsal hand x 1 year. Has not cleared or had been spencer ated with topical or liquid nitrogen. Notes a piece of foreign body in the right thigh afte r a trauma - not bothersome. Otherwise no skin concerns. SKIN CANCER RISK HISTORY FOR TRANSPLANT RECIPIENTS: -History of actinic keratoses BEFORE transplant: No -History of actinic keratoses AFTER transplant: No -History of skin cancer BEFORE transplant: No -If yes, list of skin cancer(s)/date/treatment (if known) to date: -History of skin cancer AFTER transplant: No -If yes, list of skin cancer(s)/date/treatment (if known) to date: Photosensitizing medications since transplant: None FHx: -Family history of melanoma: No -Family history of non-melanoma skin cancer: No SHx: -has lived in [place] environment in past: Yes PMHx: There are no active problems to display for this patient. Meds: Current Outpatient Prescriptions: CINACALCET HCL (SENSIPAR ORAL), Take by mouth., Di sp: , Rfl: FINASTERIDE (PROSCAR ORAL), Take by mouth., Disp: , Rfl: METOPROLOL SUCCINATE (TOPROL XL ORAL), Take by mouth., Disp: , Rfl: mycophenolate 250 mg oral capsule, Take by mouth., Disp: , Rfl: PREDNISONE ORAL, Take by mouth., Disp: , Rfl: tacrolimus 1 mg oral capsule, Take by mouth., Disp: , Rfl: All: No Known Allergies Review of Systems: Other than stated in the HPI and PMHx, the patient denied any other skin or systemic compla ints. PHYSICAL EXAMINATION: GEN-Well appearing, pleasant, no apparent distress. Alert and oriented x 3. Normal mood and affect. Skin-A complete skin exam was performed including examination of the scalp, face, ears, lip s, eyelids, neck, chest, abdomen, back, bilateral arms, bilateral legs, hands, feet and were notable for the following: Verrucous papule on right dorsal hand Firm mobile papule on right medial thigh ASSESSMENT & PLAN: 1. Verruca vulgaris, right dorsal hand Two rounds of liquid nitrogen cryotherapy was applied to the lesion(s) after discussing the risks, benefits and alternatives including hypo- or hyperpigmentation. Expected blistering reaction explained and aftercare instructions provided. Advised to return if resolution not complete. 2. Foreign Body right thigh, reassured benign 3. Skin cancer prevention and patient education: -discussed with patient that the immunosuppressive medications they are on for their transp lant put them at increased risk for developing skin cancer. -sun avoidance and daily use of sunscreen (SPF 30 or higher) and sun-protective clothing is recommended. -hand-outs were provided on skin cancer Follow-up: Based on the patient's history of sun exposure, level of immunosuppression and skin cancer history, we recommend they be seen every 2 years for skin exams. Saul Alfredo M.D. Co-Director, Skin Clinic for Transplant Patients Clinical Perioperative Manager, Dermatology [email or web address] Matty Gonzalez M.D. Co-Director, Skin Clinic for Transplant Patients Perioperative Manager, Dermatologic Surgery [facility] [email or web address] documented in this encounter Plan of Treatment Not on filedocumented as of this encounter Procedures + +--------+ + + + | Procedure Name | Priori | Date/Time | Associated Diagnosis | Comments | | | ty | | | | + +--------+ + + + | MI DESTRUC BENIGN | Routin | 08/17/2016 | Viral warts, | | | LESION, UP TO 14 | e | 4:53 PM | unspecified type | | | LESIONS | | PDT | | | + +--------+ + + + documented in this encounter Visit Diagnoses + + | Diagnosis | + + | Viral warts, unspecified type - Primary | + + | Foreign body granuloma of skin and subcutaneous tissue | + + documented in this encounter
--- OUTSIDE RECORDS SUMMARY | ~2019-05-09 | XMS | Encounter Summary ---
Demographics + + + | Address | [address] | | | [place] [address] | + + + | Home Phone | | + + + | Preferred Language | Unknown | + + + | Marital Status | Unknown | + + + | Nondenominational Affiliation | Unknown | + + + | Race | Unknown | + + + | Ethnic Group | Unknown | + + + Author + + + | Author | [facility] | | | and [place] | + + + | Organization | [facility] | | | [...] Team Providers + +------+ + | Care Sexual Assault Response Coordinator Name | Role | Phone | + +------+ + | Oziel Michael MD | PCP | | + +------+ + Encounter Details +--------+ + + + + | Date | Type | Department | Care Team | Description | +--------+ + + + + | 06/27/ | Orders Only | [facility] | Conversion | | | 2016 | | NEPHROLOGY [place] | Transaction, | | | | | [address] | Provider Unknown | | | | | [address] [place], [place] | | | | | | [address] | (Fax) | | | | | [phone] | | | +--------+ + + + [...] | | | | | | [address] [place], [place] | | | | | | [address] | | | | | | | [...] - 1.030 | EXTERNAL | | | [place] | | | LAB | | + [...] | | | LAB | | | SY[place] | | | | | + + [...]
--- OUTSIDE RECORDS SUMMARY | ~2019-05-09 | XMS | Encounter Summary ---
Demographics + + + | Address | [address] | | | [place] [address] | + + + | Home Phone [...] Author + + + | Author | [facility] | + + [...] Team Providers + +------+ + | Care Cook Fruit Name | Role | Phone | + [...] | | | | | [place], | | | | | | [place] [address] | | | +--------+ + + + [...] [facility] - | [address] | [place] [address] | | | IMMUNOGENETICS/TRANS | [address] | | | | PLANT LABORATORY | | | | + + + + + documented in this encounter Visit Diagnoses Not on filedocumented in this encounter"
--- OUTSIDE RECORDS SUMMARY | ~2019-05-09 | XMS | Clinical Summary ---
Demographics + + + | Address | [address] | | | [place] [address] | + + + | Home Phone | | + + + | Preferred Language | Unknown | + + + | Marital Status | Single | + + + | Mosque Affiliation | Unknown | + + + | Race | Unknown | + + + | Ethnic Group | Unknown | + + + Author + + + | Author | [employer] (Historical as of | | | 12-29-18) | + + + | Organization | [facility] (Historical as of | | | 12-29-18) [...] Team Providers + +------+ + | Care Data Collection Associate Name | Role | Phone | [...] Noted Date | + + + | ocean transportation 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) use of 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 | 08/20/2018 [...] Left: | GORE | | 06/10/ | [id number] | | Rings Lined [id number] 40cm | | Arm | | | 2018 | [id number] | | Ring - | | | | | | | | [id number]: Qty: | | | | | | /[id number] | | 1 on 11/05/2013 by Leonardo Dickey | | | | | | [id number] | | Y, | | | | | | L | | | | | | | | /[id number] | | | | | | | [...] +------+-------+ + | MEDICARE | MEDICA | [id number] | | | [address] | | | RE | | | | [place] [address] | | | IP-OP | | | | | + +--------+ +------+-------+ + | MEDICAID | EASTER | [id number] | | | [address] | | | [place] | | | | [place] | | | [place] | | | | [address] | | | PHARMACEUTICAL DETAILER | | | | | + +--------+ [...] | | al/Fam | | 1961 | [phone] [place] | | | alexsandra | | | [phone] | [address] | + +--------+ +--------+ + +
--- OUTSIDE RECORDS SUMMARY | ~2019-05-09 | XMS | Encounter Summary ---
Demographics + + + | Address | [address] | | | [place] [address] | + + + | Home Phone [...] | Author | [facility] | + + + | Organization | [facility] | + + + | Address | Unknown | + + + | Phone | Unavailable | + + + Support + + +---------+ + | Name | Relationship | Address | Phone | + + +---------+ + | Olesya Lamb | ECON | Unknown | | + + +---------+ + Care Team Providers + +------+ + | Care Blow Torch Burner Name | Role | Phone | + [...] | | | | | [place], | | | | | | [place] [address] | | | +--------+ + + + [...] + + + | [facility] - | [address] | [place] [address] | | | IMMUNOGENETICS/TRANS | [address] | | | | PLANT LABORATORY | | | | + + + + + documented in this encounter Visit Diagnoses Not on filedocumented in this encounter"
--- OUTSIDE RECORDS SUMMARY | ~2019-05-09 | XMS | Encounter Summary ---
Demographics + + + | Address | [address] | | | [place] [address] | + + + | Home Phone [...] + + | Author | [facility] [employer] [facility] | + + [...] Team Providers + +------+ + | Care Shield Runner Name | Role | Phone | [...] | | | | | [place], | | | | | | [place] [address] | | | +--------+ + + + [...] [facility] - | [address] | [place] [address] | | | IMMUNOGENETICS/TRANS | [address] | | | | PLANT LABORATORY | | | | + + + + + documented in this encounter Visit Diagnoses Not on filedocumented in this encounter"
--- OUTSIDE RECORDS SUMMARY | ~2019-05-09 | XMS | Encounter Summary ---
Demographics + + + | Address | [address] | | | [place] [address] | + + + | Home Phone [...] + + + | Author | [facility] [employer] [facility] | + + [...] Team Providers + +------+ + | Care Instrument Processing Tech Name | Role | Phone | [...] | | | | | [place], | | | | | | [place] [address] | | | +--------+ + + + [...] [facility] - | [address] | [place] [address] | | | IMMUNOGENETICS/TRANS | [address] | | | | PLANT LABORATORY | | | | + + + + + documented in this encounter Visit Diagnoses Not on filedocumented in this encounter"
--- OUTSIDE RECORDS SUMMARY | ~2019-05-09 | XMS | Encounter Summary ---
Demographics + + + | Address | [address] | | | [place] [address] | + + + | Home Phone [...] Team Providers + +------+ + | Care Prison Librarian Name | Role | Phone | + +------+ + | Oziel Michael MD | PCP | | + +------+ + Encounter Details +--------+ + + + + | Date | Type | Department | Care Team | Description | +--------+ + + + + | 10/11/ | Orders Only | [facility] | Adrian Shaffer MD | | | 2010 | | [facility] | [address] | | | | | CLINICAL LABORATORY | [place], [place] | | | | | [address] | [address] | | | | | [place], [place] | [phone] | | | | | [address] | | | | | | [phone] | | | +--------+ + + + [...] | | | | | | [address] [place] | | | | | | [address] | | | | | | | [...] | [facility];[address];[place] [address] CULTURE | | | NO GROWTH 2 DAYS | | | Testing performed at [facility], [address], | | | [place] [address] REPORT STATUS | | | 10/13/2010 FINAL [...]
--- OUTSIDE RECORDS SUMMARY | ~2019-05-09 | XMS | Encounter Summary ---
Demographics + + + | Address | [address] | | | [place] [address] | + + + | Home Phone [...] Author + + + | Author | [email or web address] | + + [...] Team Providers + +------+ + | Care Tubing Tester Name | Role | Phone | + +------+ + | Oziel Michael MD | PCP | | + +------+ + Encounter Details +--------+ + + + + | Date | Type | Department | Care Team | Description | +--------+ + + + + | 04/21/ | Ancillary | LAB IMMUNOGENETIC | | | | 2013 | Orders | AND TRANSPLANT LAB | | | | | | [address] | | | | | | [place], | | | | | | [place] [address] | | | +--------+ + + + [...] FLOW HLA AB PRA | Routin | 04/21/2014 | | | | SCREEN I/II | e | 4:25 PM | | | | | | PST | | | + +--------+ + + + documented in this encounter Results LIT FLOW HLA AB PRA SCREEN I/II (04/21/2014 4:25 PM PST) + + | Specimen | + + | Blood - Blood | + + + + + + + | Performing | Address | City/State/Zipcode | Phone Number | | Organization | | | | + + + + + | [facility] - | [address] | [place] [address] | | | IMMUNOGENETICS/TRANS | [address] | | | | PLANT LABORATORY | | | | + + + + + documented in this encounter Visit Diagnoses Not on filedocumented in this encounter"
--- OUTSIDE RECORDS SUMMARY | ~2019-05-09 | XMS | Encounter Summary ---
Demographics + + + | Address | [address] | | | [place] [address] | + + + | Home Phone [...] Team Providers + +------+ + | Care Compensation Consultant Name | Role | Phone | + +------+ + PCP | Unavailable | + +------+ + Encounter Details +--------+ + + + + | Date | Type | Department | Care Team | Description | +--------+ + + + + | 06/13/ | Orders Only | [facility] | Alexx Gutierrez MD | | | 2019 | | NEPRHOLOGY [place] | [address] | | | | | [address] | [address] [place], [place] | | | | | [address] [place], [place] | [address] | | | | | [address] | | | | | | [phone] | | | +--------+ + + + [...] 2019 | Visit | | [address] [facility] | | | | | | [address] [place], [place] | | | | | | [address] | | | | | | | [...] | | | LAB | | | BRITISH | | | | | + + [...]
--- OUTSIDE RECORDS SUMMARY | ~2019-05-09 | XMS | Encounter Summary ---
Demographics + + + | Address | [address] | | | [place] [address] | + + + | Home Phone [...] + | Author | [facility] | | | and [place] | + + + | Organization | [facility] | | | and [...] Team Providers + +------+ + | Care Wind Turbine Machinist Name | Role | Phone | + +------+ + | Oziel Michael MD | PCP | | + +------+ + Encounter Details +--------+ + + + + | Date | Type | Department | Care Team | Description | +--------+ + + + + | 05/22/ | Orders Only | [facility] | Alexx Gutierrez MD | | | 2017 | | NEPRHOLOGY [place] | [address] | | | | | [address] | [address] [place], [place] | | | | | 101 [place], [place] | [address] | | | | | [address] | | | | | | [phone] | | | +--------+ + + + [...] 2020 | Visit | | [address] [facility] | | | | | | [address] [place] | | | | | | [address] | | | | | | | | +--------+---------+ + + + documented as of this encounter Visit Diagnoses Not on filedocumented in this encounter"
--- OUTSIDE RECORDS SUMMARY | ~2019-05-09 | XMS | Encounter Summary ---
Demographics + + + | Address | [address] | | | [place] [address] | + + + | Home Phone | | + + + | Preferred Language | Unknown | + + + | Marital Status | Single | + + + | Restorationist Affiliation | Unknown | + + + | Race | Black or | + + + | Ethnic Group | Not or | + + + Author + + + | Author | [facility] | + + [...] Providers + +------+ + | Care Head Baggage Porter Name | Role | Phone | + [...] | | | | | Mirlande Nunes [place], | | | | | | [place] [address] | | | +--------+ + + + [...] + + + | [facility] - | [address] | [place] [address] | | | IMMUNOGENETICS/TRANS | [address] | | | | PLANT LABORATORY | | | | + + + + + documented in this encounter Visit Diagnoses Not on filedocumented in this encounter"
--- OUTSIDE RECORDS SUMMARY | ~2019-05-09 | XMS | Encounter Summary ---
Demographics + + + | Address | [address] | | | [place] [address] | + + + | Home Phone [...] + + + | Author | [facility] [employer] [facility] | + + [...] Team Providers + +------+ + | Care Public Health Epidemiologist Name | Role | Phone | + [...] | | | | | Mirlande Nunes [place], | | | | | | [place] [address] | | | +--------+ + + + [...] + + + | [facility] - | [address] | [place] [address] | | | IMMUNOGENETICS/TRANS | [address] | | | | PLANT LABORATORY | | | | + + + + + documented in this encounter Visit Diagnoses Not on filedocumented in this encounter"
--- OUTSIDE RECORDS SUMMARY | ~2019-05-09 | XMS | Encounter Summary ---
Demographics + + + | Address | [address] | | | [place] [address] | + + + | Home Phone | | + + + | Preferred Language | Unknown | + + + | Marital Status | Unknown | + + + | Hinduism Affiliation | Unknown | + + + | Race | Unknown | + + + | Ethnic Group | Unknown | + + + Author + + + | Author | [facility] | | | and [place] | + + + | Organization | [facility] | | | [...] Team Providers + +------+ + | Care Pencils Washer Name | Role | Phone | + +------+ + | Oziel Michael MD | PCP | | + +------+ + Encounter Details +--------+ + + + + | Date | Type | Department | Care Team | Description | +--------+ + + + + | 01/04/ | Orders Only | [facility] | Alexx Gutierrez MD | | | 2017 | | NEPHROLOGY [place] | [address] [place] | | | | | [address] [place] | [address] [place], [place] | | | | | 160 [place], [place] | [address] | | | | | [address] | | | | | | [phone] | | | +--------+ + + + [...] 2019 | Visit | | [address] [facility] | | | | | | [address] [place], [place] | | | | | | [address] | | | | | | | [...]
--- OUTSIDE RECORDS SUMMARY | ~2019-05-09 | XMS | Encounter Summary ---
Demographics + + + | Address | [address] | | | [place] [address] | + + + | Home Phone [...] + | Author | [facility] [employer] [facility] | + + [...] Team Providers + +------+ + | Care Bump Grader Operator Name | Role | Phone | [...] | | | | | Mirlande Nunes [place], | | | | | | [place] [address] | | | +--------+ + + + [...] [facility] - | [address] | [place] [address] | | | IMMUNOGENETICS/TRANS | [address] | | | | PLANT LABORATORY | | | | + + + + + documented in this encounter Visit Diagnoses Not on filedocumented in this encounter"
--- OUTSIDE RECORDS SUMMARY | ~2019-05-09 | XMS | Encounter Summary ---
Demographics + + + | Address | [address] | | | [place] [address] | + + + | Home Phone | | + + + | Preferred Language | Unknown | + + + | Marital Status | Single | + + + | Zoroastrian Affiliation | Unknown | + + + | Race | Black or | + + + | Ethnic Group | Not or | + + + Author + + + | Author | [facility] | + + + | Organization | [facility] | + + + | Address | Unknown | + + + | Phone | Unavailable | + + + Support + + +---------+ + | Name | Relationship | Address | Phone | + + +---------+ + | Olesya Lamb | ECON | Unknown | | + + +---------+ + Care Team Providers + +------+ + | Care Winch Runner Name | Role | Phone | [...] | | | | | Mirlande Nunes [place], | | | | | | [place] [address] | | | +--------+ + + + [...] [facility] - | [address] | [place] [address] | | | IMMUNOGENETICS/TRANS | [address] | | | | PLANT LABORATORY | | | | + + + + + documented in this encounter Visit Diagnoses Not on filedocumented in this encounter"
--- OUTSIDE RECORDS SUMMARY | ~2019-05-09 | XMS | Encounter Summary ---
Demographics + + + | Address | [address] | | | [place] [address] | + + + | Home Phone [...] Author + + + | Author | [facility] [employer] [facility] | + + [...] Team Providers + +------+ + | Care Musical Instrument Supervisor Name | Role | Phone | [...] | | | | | Mirlande Nunes [place], | | | | | | [place] [address] | | | +--------+ + + + [...] [facility] - | [address] | [place] [address] | | | IMMUNOGENETICS/TRANS | [address] | | | | PLANT LABORATORY | | | | + + + + + documented in this encounter Visit Diagnoses Not on filedocumented in this encounter"
--- OUTSIDE RECORDS SUMMARY | ~2019-05-09 | XMS | Encounter Summary ---
Demographics + + + | Address | [address] | | | [place] [address] | + + + | Home Phone [...] Team Providers + +------+ + | Care Sliver Lap Tender Name | Role | Phone | [...] Description | +--------+--------+ + + + | 02/05/ | Refill | [facility] | Anthony Martinze, | Medication Refill | | 2018 | | NEPHROLOGY [place] | MISSION ASSESSMENT SPECIALIST [address] | | | | | [address] [facility] | [address] | | | | | [place]TO[place] | [place]TO[place] | | | | | [address] | [address] | | | | | [phone] | [phone] | | | | | | | | +--------+--------+ + + + [...] 2020 | Visit | | [address] [facility] | | | | | | [address] [place], [place] | | | | | | [address] | | | | | | | | +--------+---------+ + + + documented as of this encounter Visit Diagnoses + + | Diagnosis | + + | Essential hypertension, benign - Primary | + + | CKD (chronic kidney disease), stage III (HCC) Chronic kidney disease, Stage III | | (moderate) | + + | Kidney replaced by transplant | + + documented in this encounter"
--- OUTSIDE RECORDS SUMMARY | ~2019-05-09 | XMS | Encounter Summary ---
Demographics + + + | Address | [address] | | | [place] [address] | + + + | Home Phone | | + + + | Preferred Language | Unknown | + + + | Marital Status | Single | + + + | Scientology Affiliation | Unknown | + + + | Race | Black or | + + + | Ethnic Group | Not or | + + + Author + + + | Author | [facility] | + + + [...] Team Providers + +------+ + | Care Carton Stapler Name | Role | Phone | + [...] | | | | | Mirlande Nunes [place], | | | | | | [place] [address] | | | +--------+ + + + [...] + + + | [facility] - | [address] | [place] [address] | | | IMMUNOGENETICS/TRANS | [address] | | | | PLANT LABORATORY | | | | + + + + + documented in this encounter Visit Diagnoses Not on filedocumented in this encounter"
--- OUTSIDE RECORDS SUMMARY | ~2019-05-09 | XMS | Encounter Summary ---
Demographics + + + | Address | [address] | | | [place] [address] | + + + | Home Phone [...] + + + | Author | [facility] [employer] [facility] | + [...] Team Providers + +------+ + | Care Logging Shovel Operator Name | Role | Phone | + +------+ + | Oziel Michael MD | PCP | | + +------+ + Encounter Details +--------+ + + + + | Date | Type | Department | Care Team | Description | +--------+ + + + + | 02/21/ | Lab | LAB IMMUNOGENETIC | | | | 2015 | Requisition | AND TRANSPLANT LAB | | | | | | [address] | | | | | | [place]e [place], | | | | | | [place] [address] | | | +--------+ + + + [...] FLOW HLA AB PRA | Routin | 02/15/2016 | | | | SCREEN I/II | e | 12:00 AM | | | | | | PDT | | | + +--------+ + + + documented in this encounter Results LIT FLOW HLA AB PRA SCREEN I/II (02/15/2016 12:00 AM PDT) + + | Specimen | + + | Blood - Blood | | (substance) | + + + + + + + | Performing | Address | City/State/Zipcode | Phone Number | | Organization | | | | + + + + + | [facility] - | [address] | [place] [address] | | | IMMUNOGENETICS/TRANS | [address] | | | | PLANT LABORATORY | | | | + + + + + documented in this encounter Visit Diagnoses Not on filedocumented in this encounter"
--- OUTSIDE RECORDS SUMMARY | ~2019-05-09 | XMS | Encounter Summary ---
Demographics + + + | Address | [address] | | | [place] [address] | + + + | Home Phone [...] Team Providers + +------+ + | Care Grass Farm Laborer Name | Role | Phone | + +------+ + | Oziel Michael MD | PCP | | + +------+ + Encounter Details +--------+ + + + + | Date | Type | Department | Care Team | Description | +--------+ + + + + | 10/11/ | Orders Only | [facility] | Adrian Shaffer MD | | | 2010 | | [facility] | [address] [facility] | | | | | CLINICAL LABORATORY | [place], [place] | | | | | [address] | [address] | | | | | [place], [place] | [phone] | | | | | [address] | | | | | | [phone] | | | +--------+ + + + [...] | | | | | | [address] [place] | | | | | | [address] | | | | | | | [...] | Testing performed at | | | [facility];[address];[place] [address] CULTURE | | | NO GROWTH 2 DAYS | | | Testing performed at [facility], [address], | | | [place] [address] REPORT STATUS | | | 10/13/2010 FINAL [...]
--- OUTSIDE RECORDS SUMMARY | ~2019-05-09 | XMS | Encounter Summary ---
Demographics + + + | Address | [address] | | | [place] [address] | + + + | Home Phone [...] + | Author | [facility] | + + + | Organization | [facility] | + + + | Address | Unknown | + + + | Phone | Unavailable | + + + Support + + +---------+ + | Name | Relationship | Address | Phone | + + +---------+ + | Olesya Lamb | ECON | Unknown | | + + +---------+ + Care Team Providers + +------+ + | Care Escalator Service Mechanic Name | Role | Phone | [...] | | | | Mir[place]e Nunes [place], | | | | | | [place] [address] | | | +--------+ + + + [...] + + | [facility] - | [address] | [place] [address] | | | IMMUNOGENETICS/TRANS | [address] [...] + + | [facility] - | [address] | [place] [address] | | | IMMUNOGENETICS/TRANS | [address] | | | | PLANT LABORATORY | | | | + + + + + documented in this encounter Visit Diagnoses Not on filedocumented in this encounter"
--- OUTSIDE RECORDS SUMMARY | ~2019-05-09 | XMS | Encounter Summary ---
Demographics + + + | Address | [address] | | | [place] [address] | + + + | Home Phone | | + + + | Preferred Language | Unknown | + + + | Marital Status | Unknown | + + + | Scientology Affiliation | Unknown | + + + | Race | Unknown | + + + | Ethnic Group | Unknown | + + + Author + + + | Author | [facility] | | | and [place] | + + + | Organization | [facility] | | [...] Team Providers + +------+ + | Care Senior Risk Manager Name | Role | Phone | + +------+ + | Oziel Michael MD | PCP | | + +------+ + Encounter Details +--------+ + + + + | Date | Type | Department | Care Team | Description | +--------+ + + + + | 09/27/ | Orders Only | [facility] | Alexx Gutierrez MD | | | 2019 | | NEPRHOLOGY [place] | [address] | | | | | [address] | 160 [place], [place] | | | | | 101 [place], [place] | [address] | | | | | [address] | | | | | | [phone] | | | +--------+ + + + [...] 2020 | Visit | | [address] [facility] | | | | | | [address] [place] | | | | | | [address] | | | | | | | | +--------+---------+ + + + documented as of this encounter Visit Diagnoses Not on filedocumented in this encounter"
--- OUTSIDE RECORDS SUMMARY | ~2019-05-09 | XMS | Encounter Summary ---
Demographics + + + | Address | [address] | | | [place] [address] | + + + | Home Phone [...] Team Providers + +------+ + | Care Yield Analyst Name | Role | Phone | [...] [place] | | | | | [phone] | [address] | | | | | | [phone] | | | | | | | [...] 2019 | Visit | | [address] [facility] | | | | | | [address] [facility] | | | | | | [address] | | | | | | | [...]
--- OUTSIDE RECORDS SUMMARY | ~2019-05-09 | XMS | Encounter Summary ---
Demographics + + + | Address | [address] | | | [place] [address] | + + + | Home Phone [...] Team Providers + +------+ + | Care Gate Keeper Name | Role | Phone | + +------+ + PCP | Unavailable | + +------+ + Encounter Details +--------+ + + + + | Date | Type | Department | Care Team | Description | +--------+ + + + + | 11/05/ | Hospital | [facility] | Leonardo Dickey MD | ESRD (end stage | | 2014 | Encounter | [facility] | [address] | renal disease) ([facility]) | | | | [address] | [place], [place] | | | | | [place], [place] | [address] | | | | | [address] | [phone] | | | | | [phone] | | | +--------+ + + + [...] 11/05/131816 Date of Service: 11/05/131809 Status: Signed Assistant Director Of Admissions: Claritza Brizuela RN (Registered Nurse) All belongings taken with patient. Home via private vehicle with friend. FELICIANO Vanegas onver svitlana Transaction, Provider Unknown - 11/05/2013 5:51 PM PDT Progress Notes by Claritza Brizuela RN at 11/05/131750 Author: Claritza Brizuela RN Service: (none) Author Type: Registered Nurse Filed: 11/05/131813 Date of Service: 11/05/131750 Status: Signed Assistant Director Of Admissions: Claritza Wand, RN (Registered Nurse) Reviewed discharge [...] 11/05/131732 Date of Service: 11/05/131732 Status: Signed Assistant Director Of Admissions: Stephanie Coleman RPH (Pharmacist) Clinical Pharmacy Note: Renal Monitoring [place] 53 y.o. male Ht Readings from Last [...] | Visit | | [address] [facility] | | | | | | 160 [place], [place] | | | | | | [address] | | | | | | | [...] up to 0.5 cm. | | | Internet Developer sections are submitted in cassette (A1). FM | | | MICROSCOPIC EXAMINATION: Histologic sections of all submitted blocks | | | are examined by light microscopy. These findings, together with the | | | gross examination, support the pathologic diagnosis. PERFORMING | | | LABORATORY: Professional interpretation and technical preparation was | | | performed by [facility] | | | [place] [address] (Die Cast Technician: Bashir | | | Chantel Delacruz; [facility]#: [id number]). Diagnostician: Bashir Delacruz | | | Pathologist [...] | | LAB | | | | [address]vd;[place] [address] | | | | + + + + + + | Antibody | NEGATIVE | | EXTERNAL | | | Screen | | | LAB | | + + + + + + | Antibody | Testing performed at | | EXTERNAL | | | Screen | [facility] | | LAB | | | | [address];[place] [address] | | | | + + + + + + | BB BAND | [id number] | | EXTERNAL | | | | | | LAB | | + + + + + + | BB BAND | Testing performed at | | EXTERNAL | | | | [facility];[address] | | LAB | | | | [address];[place] [address] | | | | + + + [...] EXTERNAL | | | | performed at [facility];[address] | mmol/L | LAB | | | | [address];[place] | | | | | | [address] | | | | + + + + + + | K | 3.6Comment: Testing | 3.5 - 4.9 | EXTERNAL | | | | performed at [facility];[address] | mmol/L | LAB | | | | [address];[place] | | | | | | [address] | | | | + + + + + + | Cl | 107Comment: Testing | 99 - 109 mmol/L | EXTERNAL | | | | performed at [facility];[address] | | LAB | | | | [address];[place] | | | | | | [address] | | | | + + + + + + | CO2 | 29Comment: Testing | 23 - 32 mmol/L | EXTERNAL | | | | performed at [facility];[address] | | LAB | | | | [address];[place] | | | | | | [address] | | | | + + + + + + | Anion Gap | 11Comment: Testing | 5 - 20 mmol/L | EXTERNAL | | | | performed at [facility];[address] | | LAB | | | | [address];[place] | | | | | | [address] | | | | + + + + + + | Glucose, | 74Comment: Testing | 65 - 99 mg/dL | EXTERNAL | | | Fasting | performed at [facility];[address] | | LAB | | | | [address];[place] | | | | | | [address] | | | | + + + + + + | BUN | 35 (H)Comment: Testing | 8 - 25 mg/dL | EXTERNAL | | | | performed at [facility];[address] | | LAB | | | | [address];[place] | | | | | | [address] | | | | + + + + + + | Creatinine | 10.12 (H)Comment: | 0.70 - 1.30 | EXTERNAL | | | | Testing performed at | mg/dL | LAB | | | | [facility];[address] | | | | | | [address];[place] [address] | | | | + + + + + + | BUN/Creatin | 4Comment: Testing | | EXTERNAL | | | ine Ratio | performed at [facility];[address] | | LAB | | | | [address];[place] | | | | | | [address] | | | | + + + + + + | Calcium | 8.1 (L)Comment: Testing | 8.5 - 10.2 | EXTERNAL | | | | performed at [facility];[address] | mg/dL | LAB | | | | [address];[place] | | | | | | [address] | | | | + + + [...] | | | | | | at [facility];[address] | | | | | | [address];[place] [address] | | | | + + + [...]
--- OUTSIDE RECORDS SUMMARY | ~2019-05-09 | XMS | Encounter Summary ---
Demographics + + + | Address | [address] | | | [place] [address] | + + + | Home Phone [...] Team Providers + +------+ + | Care Material Loader Name | Role | Phone | + +------+ + PCP | Unavailable | + +------+ + Encounter Details +--------+ + + + + | Date | Type | Department | Care Team | Description | +--------+ + + + + | 11/05/ | Orders Only | [facility] | Alexx Gutierrez MD | | | 2019 | | NEPHROLOGY [place] | [address] [place] | | | | | [address] [place] | [address] [place], [place] | | | | | 160 [place], [place] | [address] | | | | | [address] | | | | | | [phone] | | | +--------+ + + + [...] 2019 | Visit | | [address] [facility] | | | | | | [address] [facility] | | | | | | [address] | | | | | | | [...] | | | LAB | | | [place] | | | | | + + [...]
--- OUTSIDE RECORDS SUMMARY | ~2019-05-09 | XMS | Encounter Summary ---
Demographics + + + | Address | [address] | | | [place] [address] | + + + | Home Phone [...] + + | Author | [facility] | + + + | Organization | [facility] | + + + | Address | Unknown | + + + | Phone | Unavailable | + + + Support + + +---------+ + | Name | Relationship | Address | Phone | + + +---------+ + | Olesya Lamb | ECON | Unknown | | + + +---------+ + Care Team Providers + +------+ + | Care Supervisor Gas Meter Repair Name | Role | Phone | + [...] | | | | [place] N[place], | | | | | | [place] [address] | | | +--------+ + + + [...] [facility] - | [address] | [place] [address] | | | IMMUNOGENETICS/TRANS | [address] | | | | PLANT LABORATORY | | | | + + + + + documented in this encounter Visit Diagnoses Not on filedocumented in this encounter"
--- OUTSIDE RECORDS SUMMARY | ~2019-05-09 | XMS | Encounter Summary ---
Demographics + + + | Address | [address] | | | [place] [address] | + + + | Home Phone | | + + + | Preferred Language | Unknown | + + + | Marital Status | Unknown | + + + | Orthodox Affiliation | Unknown | + + + | Race | Unknown | + + + | Ethnic Group | Unknown | + + + Author + + + | Author | [facility] | | | and [place] | + + + | Organization | [facility] | | | and [...] Team Providers + +------+ + | Care Recapper Name | Role | Phone | + [...] [place] | | | | | [phone] | [address] | | | | | | [phone] | | | | | | | [...] | | | | | | [address] [facility] [facility] | | | | | | [address] | | | | | | | [...]
--- OUTSIDE RECORDS SUMMARY | ~2019-05-09 | XMS | Clinical Summary ---
Demographics + + + | Address | [address] | | | [place] [address] | + + + | Home Phone | | + + + | Preferred Language | Unknown | + + + | Marital Status | Single | + + + | Sabianism Affiliation | Unknown | + + + | Race | Unknown | + + + | Ethnic Group | Unknown | + + + Author + + + | Author | [employer] [facility] (Historical as of | | | 12-29-18) | + + + | Organization | 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 | | | | | | | | ([facility]), Proteinuria | | | | | [...] Noted Date | + + + | steerer (current) use of 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 | 08/20/2018 | + + + | Immunosuppression (HCC) | 2018 | + + + | CKD (chronic kidney disease), stage III ([facility]) | 01/08/2018 | + + + [...] Left: | GORE | | 06/10/ | [id number] | | Rings Lined [id number] 40cm | | Arm | | | 2018 | [id number] | | Ring - | | | | | | | | [id number]: Qty: | | | | | | /[id number] | | 1 on 11/05/2013 by Leonardo Dickey | | | | | | [id number] | | Y, | | | | | | L | | | | | | | | /[id number] | | | | | | | [...] +------+-------+ + | MEDICARE | MEDICA | [id number] | | | [address] | | | RE | | | | [place] [address] | | | IP-OP | | | | | + +--------+ +------+-------+ + | MEDICAID | EASTER | [id number] | | | [address] | | | [place] | | | | [place] | | | [place] | | | | [address] | | | GEOSPATIAL SCIENTIST | | | | | + +--------+ [...] | | al/Fam | | 1961 | [phone] | [place] | | | alexsandra | | | [phone] | [address] | + +--------+ +--------+ + +
--- OUTSIDE RECORDS SUMMARY | ~2019-05-09 | XMS | Encounter Summary ---
Demographics + + + | Address | [address] | | | [place] [address] | + + + | Home Phone [...] Team Providers + +------+ + | Care Construction Person Name | Role | Phone | + +------+ + | Oziel Michael MD | PCP | | + +------+ + Encounter Details +--------+ + + + + | Date | Type | Department | Care Team | Description | +--------+ + + + + | 05/08/ | Orders Only | [facility] | Alexx Gutierrez MD | | | 2017 | | NEPRHOLOGY [place] | [address] | | | | | [address] | [address] [place], [place] | | | | | [address] [place], [place] | [address] | | | | | [address] | | | | | | [phone] | | | +--------+ + + + [...] [place] | | | | | | [address] | | | | | | | | +--------+---------+ + + + documented as of this encounter Visit Diagnoses Not on filedocumented in this encounter"
--- OUTSIDE RECORDS SUMMARY | ~2019-05-09 | XMS | Encounter Summary ---
Demographics + + + | Address | [address] | | | [place] [address] | + + + | Home Phone [...] + + | Author | [facility] | + + + [...] Team Providers + +------+ + | Care Paving Inspector Name | Role | Phone | + +------+ + | Oziel Michael MD | PCP | | + +------+ + Encounter Details +--------+ + + + + | Date | Type | Department | Care Team | Description | +--------+ + + + + | 08/16/ | Hospital | LAB SURGICAL | | | | 2017 | Encounter | PATHOLOGY [address] | | | | | [address] | | | | | | [place], [place] | | | | | | [address] | | | +--------+ + + + [...] + + + +---------+ + + | mycophenolate 250 | Take by mouth. | | 0 | 05/10/20 | | | mg oral capsule | | | | 16 | | + + + +---------+ + + | tacrolimus 1 mg | Take by mouth. | | 0 | 05/14/20 | | | oral capsule | | | | 16 | | + + + +---------+ + + documented as of this encounter Plan of Treatment Not on filedocumented as of this encounter Procedures + +--------+ + + + | Procedure Name | Priori | Date/Time | Associated Diagnosis | Comments | | | ty | | | | + +--------+ + + + | SURGICAL PATHOLOGY | Routin | 08/16/2016 | | Results for this | | | e | | | procedure are in the | | | | | | results section. | + +--------+ + + + documented in this encounter Results SURGICAL PATHOLOGY (08/16/2016) + + + + + + | Component | Value | Ref Range | Performed | Pathologist | | | | | At | Signature | + + + + + + | SURGICAL | SOURCE OF SPECIMEN:A | | [facility] | | | PATHOLOGY | Allograft Kidney Biopsy | | DEPARTMENT | | | | Final Pathologic | | OF | | | | Diagnosis:Allograft | | PATHOLOGY | | | | kidney biopsy | | | | | | (immunofluorescence | | | | | | microscopy and | | | | | | immunostains;[id number]) | | | | | | :- Negative for | | | | | | peritubular capillary | | | | | | C4d deposits- Negative | | | | | | for polyoma virus | | | | | | Case reviewed by:Arsh | | | | | | Belén Jean Baptiste M.D. | | | | | | /PathologistT:08/23/16:dc | | | | | | h Indirect | | | | | | Immunofluorescence | | | | | | Microscopy: Frozen | | | | | | sections, | | | | | | includingpositive | | | | | | controls, are stained by | | | | | | indirect | | | | | | immunofluorescence | | | | | | technique forC4d. | | | | | | Positive results are | | | | | | graded on a scale of | | | | | | 1-3+. Each level | | | | | | containsfour glomeruli. | | | | | | RESULTS:C4d: | | | | | | Negative for | | | | | | peritubular capillary | | | | | | staining | | | | | | Additional Immunostain: | | | | | | Paraffin sections, | | | | | | including positive and | | | | | | negativecontrols, are | | | | | | stained with a | | | | | | polyclonal antibody for | | | | | | SV-40 polyoma | | | | | | viralantigens by | | | | | | immunoperoxidase | | | | | | technique. | | | | | | Results: Negative for | | | | | | polyoma virus. | | | | | | (Analyte specific | | | | | | reagents are used in | | | | | | many laboratory tests | | | | | | necessary forstandard | | | | | | medical care. This | | | | | | test was developed and | | | | | | its | | | | | | performancecharacteristi | | | | | | cs determined by [facility] | | | | | | laboratories. It has | | | | | | not been clearedor | | | | | | approved by the US Food | | | | | | and Drug Administration | | | | | | (FDA). FDA does | | | | | | notrequire this test to | | | | | | go through premarket FDA | | | | | | review. This test is | | | | | | used forclinical | | | | | | purposes. It should | | | | | | not be regarded as | | | | | | investigational or | | | | | | forresearch. This | | | | | | laboratory is certified | | | | | | under the Clinical | | | | | | LaboratoryImprovement | | | | | | Amendments (CLIA) as | | | | | | qualified to perform | | | | | | high complexityclinical | | | | | | laboratory testing.) | | | | | | Clinical History:A 56 | | | | | | year old man with a | | | | | | history of end-stage | | | | | | kidney disease and | | | | | | renaltransplantation. | | | | | | The graft is biopsied to | | | | | | rule out rejection. A | | | | | | part ofthe sample is | | | | | | referred for | | | | | | immunofluorescence | | | | | | microscopy and sections | | | | | | arereceived for polyoma | | | | | | virus immunostains. | | | | | | Gross Description:The | | | | | | specimen is received | | | | | | labeled with the | | | | | | patient's name and | | | | | | outsideaccession number | | | | | | [id number]: Received in | | | | | | Juliano's for | | | | | | immunofluorescence | | | | | | microscopy are two | | | | | | needle coresegments of | | | | | | tissue measuring 0.5 and | | | | | | 0.2 cm in length x 0.1 | | | | | | cm in uniformdiameter. | | | | | | They are submitted | | | | | | (CANDE). 08/17/16: PM | | | | | | Unstained paraffin | | | | | | sections are received | | | | | | for SV40 viral stain. | | | | | | My electronic | | | | | | signature indicates that | | | | | | I have personally | | | | | | reviewed alldiagnostic | | | | | | slides, the gross and/or | | | | | | microscopic portion of | | | | | | thisreport and | | | | | | formulated the final | | | | | | diagnosis. | | | | | | Rendering Diagnostician: | | | | | | Arsh Jean Baptiste | | | | | | Lesiai | | | | | | bo Signed 08/23/2016 | | | | | | 5:53PM | | | | + + + + + + + + | Specimen | + + | | + + + + + | Narrative | Performed At | + + + | | | + + + + + + + + | Performing | Address | City/State/Zipcode | Phone Number | | Organization | | | | + + + + + | [facility] | [address] | [place] [address] | | | PATHOLOGY | [address] | | | + + + + + documented in this encounter Visit Diagnoses Not on filedocumented in this encounter"
--- OUTSIDE RECORDS SUMMARY | ~2019-05-09 | XMS | Encounter Summary ---
Demographics + + + | Address | [address] | | | [place] [address] | + + + | Home Phone [...] Team Providers + +------+ + | Care Lay Out Machine Operator Name | Role | Phone | + +------+ + PCP | Unavailable | + +------+ + Encounter Details +--------+ + + + + | Date | Type | Department | Care Team | Description | +--------+ + + + + | 10/31/ | Hospital | [facility] | Conversion | | | 2014 | Encounter | [facility] | Transaction, | | | | | CLINIC [address] | Provider Unknown | | | | | [place], [place] | | | | | | [address] | (Fax) | | | | | [phone] | | | +--------+ + + + [...] | | | | | | [address] | | | | | | [address] | | | | | | | [...] | | EXTERNAL | | | | [facility];[address] | | LAB | | | | [address];[place] [address] | | | | + + + + + + | Antibody | NEGATIVE | | EXTERNAL | | | Screen | | | LAB | | + + + + + + | Antibody | Testing performed at | | EXTERNAL | | | Screen | [facility];[address] | | LAB | | | | [address];[place] [address] | | | | + + + [...] | | | Patient | performed at [facility];[address] | | LAB | | | | [address];[place], [place] | | | | | | [address] | | | | + + + [...] | | | performed at [facility] | | | | | | [facility];[place], [place] | | | | | | [address] | | | | + + + [...] EXTERNAL | | | | performed at [facility], [address] | | LAB | | | | [address], | | | | | | [place] [address] | | | | + + + + + + | RED CELL | 3.94 (L)Comment: Testing | 4.20 - 5.70 | EXTERNAL | | | COUNT | performed at [facility], [address] | M/uL | LAB | | | | [address], | | | | | | [place] [address] | | | | + + + + + + | Hgb | 12.1 (L)Comment: Testing | 13.2 - 17.0 | EXTERNAL | | | | performed at [facility], [address] | g/dL | LAB | | | | [address], | | | | | | [place] [address] | | | | + + + + + + | Hematocrit, | 36.4 (L)Comment: Testing | 39.0 - 50.0 % | EXTERNAL | | | POC | performed at [facility], [address] | | LAB | | | | [address], | | | | | | [place] [address] | | | | + + + + + + | MCV | 92.6Comment: Testing | 80.0 - 100.0 fl | EXTERNAL | | | | performed at [facility], [address] | | LAB | | | | [address], | | | | | | [place] [address] | | | | + + + + + + | MCH | 30.7Comment: Testing | 27.0 - 34.0 pg | EXTERNAL | | | | performed at [facility], [address] | | LAB | | | | [address], | | | | | | [place] [address] | | | | + + + + + + | MCHC | 33.2Comment: Testing | 32.0 - 35.5 | EXTERNAL | | | | performed at [facility], [address] | g/dL | LAB | | | | [address], | | | | | | [place] [address] | | | | + + + + + + | RDW-CV | 50.3Comment: Testing | 37 - 53 fl | EXTERNAL | | | | performed at [facility], [address] | | LAB | | | | [address], | | | | | | [place] [address] | | | | + + + + + + | Platelet | 215Comment: Testing | 150 - 400 K/uL | EXTERNAL | | | Count | performed at [facility], [address] | | LAB | | | Plasma | [address], | | | | | | [place] [address] | | | | + + + + + + | MPV | 9.2Comment: Testing | fl | EXTERNAL | | | | performed at [facility], [address] | | LAB | | | | [address], | | | | | | [place] [address] | | | | + + + + + + | Differentia | AUTOMATEDComment: | | EXTERNAL | | | l Type | Testing performed at | | LAB | | | | [facility], [address] | | | | | | [place] | | | | | | [address] | | | | + + + + + + | % Segmented | 48.5Comment: Testing | % | EXTERNAL | | | | performed at [facility], [address] | | LAB | | | Neutrophils | [address], | | | | | | [place] [address] | | | | + + + + + + | % | 37.6Comment: Testing | % | EXTERNAL | | | Lymphocytes | performed at [facility], [address] | | LAB | | | | [address], | | | | | | [place] [address] | | | | + + + + + + | % Monocytes | 9.2Comment: Testing | % | EXTERNAL | | | | performed at [facility], [address] | | LAB | | | | [address], | | | | | | [place] [address] | | | | + + + + + + | % | 3.6Comment: Testing | % | EXTERNAL | | | Eosinophils | performed at [facility], [address] | | LAB | | | | [address], | | | | | | [place] [address] | | | | + + + + + + | % Basophils | 1.1Comment: Testing | % | EXTERNAL | | | | performed at [facility], [address] | | LAB | | | | [address], | | | | | | [place] [address] | | | | + + + + + + | Absolute | 1.6 (L)Comment: Testing | 1.9 - 7.4 K/uL | EXTERNAL | | | Segmented | performed at [facility], [address] | | LAB | | | Neutrophils | [address], | | | | | | [place] [address] | | | | + + + + + + | Absolute | 1.2Comment: Testing | 1.0 - 3.9 K/uL | EXTERNAL | | | Lymphocytes | performed at [facility], [address] | | LAB | | | | [address], | | | | | | [place] [address] | | | | + + + + + + | Absolute | 0.3Comment: Testing | 0 - 0.8 K/uL | EXTERNAL | | | Monocytes | performed at [facility], [address] | | LAB | | | | [address], | | | | | | [place] [address] | | | | + + + + + + | Absolute | 0.1Comment: Testing | 0 - 0.5 K/uL | EXTERNAL | | | Eosinophils | performed at [facility], [address] | | LAB | | | | [address], | | | | | | [place] [address] | | | | + + + + + + | Absolute | 0.0Comment: Testing | 0 - 0.1 K/uL | EXTERNAL | | | Basophils | performed at [facility], [address] | | LAB | | | | [address], | | | | | | [place] [address] | | | | + + + [...] | | | | | [place] [address] | | | | + + + + + + | K | 4.1Comment: Testing | 3.5 - 4.9 | EXTERNAL | | | | performed at [facility], [address] | mmol/L | LAB | | | | [address], | | | | | | [place] [address] | | | | + + + + + + | Cl | 94 (L)Comment: Testing | 99 - 109 mmol/L | EXTERNAL | | | | performed at [facility], [address] | | LAB | | | | [address], | | | | | | [place] [address] | | | | + + + + + + | CO2 | 34 (H)Comment: Testing | 23 - 32 mmol/L | EXTERNAL | | | | performed at [facility], [address] | | LAB | | | | [address], | | | | | | [place] [address] | | | | + + + + + + | Anion Gap | 14Comment: Testing | 5 - 20 mmol/L | EXTERNAL | | | | performed at [facility], [address] | | LAB | | | | [address], | | | | | | [place] [address] | | | | + + + + + + | Glucose, | 132 (H)Comment: Testing | 65 - 99 mg/dL | EXTERNAL | | | Fasting | performed at [facility], [address] | | LAB | | | | [address], | | | | | | [place] [address] | | | | + + + + + + | BUN | 24Comment: Testing | 8 - 25 mg/dL | EXTERNAL | | | | performed at [facility], [address] | | LAB | | | | [address], | | | | | | [place] [address] | | | | + + + + + + | Creatinine | 9.74 (H)Comment: Testing | 0.70 - 1.30 | EXTERNAL | | | | performed at [facility], [address] | mg/dL | LAB | | | | [address], | | | | | | [place] [address] | | | | + + + + + + | BUN/Creatin | 2Comment: Testing | | EXTERNAL | | | ine Ratio | performed at [facility], [address] | | LAB | | | | [address], | | | | | | [place] [address] | | | | + + + + + + | Calcium | 10.0Comment: Testing | 8.5 - 10.2 | EXTERNAL | | | | performed at [facility], [address] | mg/dL | LAB | | | | [address], | | | | | | [place] [address] | | | | + + + [...] | | | | | [place] [address] | | | | + + + [...] EXTERNAL LAB | | Testing performed at [facility];[address] [place] [address];[place] [address] MRSA PCR | | | NEGATIVE Testing performed at | | | [facility];[address] [place] [address];[place] [address] | | + + + + +---------+ [...] + + | Historically converted procedure from [facility] Epic environment | EXTERNAL LAB | + + + + +---------+ + + | Performing | Address | City/State/Zipcode | Phone Number | | Organization | | | | + +---------+ + + | EXTERNAL LAB | | | | + +---------+ + + documented in this encounter Visit Diagnoses Not on filedocumented in this encounter"
--- OUTSIDE RECORDS SUMMARY | ~2019-05-09 | XMS | Encounter Summary ---
Demographics + + + | Address | [address] | | | [place] [address] | + + + | Home Phone [...] Team Providers + +------+ + | Care Station Chief Name | Role | Phone | + +------+ + | Oziel Michael MD | PCP | | + +------+ + Encounter Details +--------+ + + + + | Date | Type | Department | Care Team | Description | +--------+ + + + + | 06/28/ | Orders Only | [facility] | Alexx Gutierrez MD | | | 2017 | | NEPHROLOGY [place] | [address] [place] | | | | | [address] [place] | [address] [place], [place] | | | | | [address] [place], [place] | [address] | | | | | [address] | | | | | | [phone] | | | +--------+ + + + [...] 2019 | Visit | | [address] [facility] | | | | | | [address] [place] | | | | | | [address] | | | | | | | [...] | | | LAB | | | [place] | | | | | + + [...]
--- OUTSIDE RECORDS SUMMARY | ~2019-05-09 | XMS | Encounter Summary ---
Demographics + + + | Address | [address] | | | [place] [address] | + + + | Home Phone | | + + + | Preferred Language | Unknown | + + + | Marital Status | Single | + + + | Advent Affiliation | Unknown | + + + | Race | Black or | + + + | Ethnic Group | Not or | + + + Author + + + | Author | [facility] | + + + | Organization | [facility] | + + + | Address | [...] + + + + | 11/25/ | Lab | LAB IMMUNOGENETIC | | | | 2014 | Requisition | [facility] | | | | | | [address] | | | | | | [place], | | | | | | [place] [address] | | | +--------+ + + + [...] FLOW HLA AB PRA | Routin | 11/25/2014 | | | | SCREEN I/II | e | 2:42 PM | | | | | | PDT | | | + +--------+ + + + documented in this encounter Results LIT FLOW HLA AB PRA SCREEN I/II (11/25/2014 2:42 PM PDT) + + | Specimen | + + | Blood - Blood | + + + + + + + | Performing | Address | City/State/Zipcode | Phone Number | | Organization | | | | + + + + + | [facility] - | [address] | [place] [address] | | | IMMUNOGENETICS/TRANS | [address] | | | | [facility] | | | | + + + + + documented in this encounter Visit Diagnoses Not on filedocumented in this encounter"
--- OUTSIDE RECORDS SUMMARY | ~2019-05-09 | XMS | Encounter Summary ---
Demographics + + + | Address | [address] | | | [place] [address] | + + + | Home Phone [...] Team Providers + +------+ + | Care Modeling Teacher Name | Role | Phone | + +------+ + PCP | Unavailable | + +------+ + Encounter Details +--------+ + + + + | Date | Type | Department | Care Team | Description | +--------+ + + + + | 06/26/ | Hospital | [facility] | Conversion | End stage renal | | 2015 | Encounter | CENTER CV INTRA OP | Transaction, | disease (HCC); | | | | [address] | Provider Unknown | Mechanical | | | | [place], [place] | [phone] | complication of | | | | [address] | | other vascular | | | | [phone] | Ziyad Russ, | device, implant, and | | | | | [address] | graft (HCC) | | | | | [address]VE [place], [place] | | | | | | [address] | | | | | | | [...] Progress Notes Conversion Transaction, Provider Unknown - 06/26/2014 1:03 PM PSTFormatting of this note m ight be different from the original. Nurse Progress Note by Nedra Long RN at 06/26/14 9827 Author: Nedra Long RN Service: (none) Author Type: Registered Nurse Filed: 06/26/14 3392 Date of Service: 06/26/141302 Status: Signed Rail Track Maintainer: Nedra Long RN (Registered Nurse) Pt tolerated procedure well. Pt returned to holding room, [facility]. Pt provided with juice and c rackers and tolerated well. Discharge education reviewed with patient and handout given. Pt verbalized understanding and voiced no further questions at this time. Pt discharging to [place] home with friend to provide transportation. Nedra Long RN docume nted in this encounter Plan [...] [place] | | | | | | [address] | | | | | | | | +--------+---------+ + + + documented as of this encounter Procedures + +--------+ + + + | Procedure Name | Priori | Date/Time | Associated Diagnosis | Comments | | | ty | | | | + +--------+ + + + | IR INJECTION | Routin | 06/26/2014 | | Results for this | | DIALYSIS CIRCUIT W | e | 1:05 PM | | procedure are in the | | ANGIOPLASTY | | PST | | results section. | + +--------+ + + + | IR INJECTION | Routin | 06/26/2014 | | Results for this | | DIALYSIS CIRCUIT | e | 1:05 PM | | procedure are in the | | | | PST | | results section. | + +--------+ + + + documented in this encounter Results IR Inj Dialysis Circuit w Angioplasty (06/26/2014 1:05 PM PST) + + | Specimen | + + | | + + + + + | Impressions | Performed At | + + + | 1. Successful left brachycephalic fissure gram and angioplasty the | | | mid and distal left cephalic venous stenosis with good hemodynamic | | | and anatomic results. [id number], [id number], [id number] Electronically | | | signed by Ziyad Russ MD on 06/26/2014 3:20 PM | | + + + + + + | Narrative | Performed At | + + + | [facility] FISTULAGRAM 06/26/2014 1:05 PM | | | HISTORY: 54 years. Male. With chronic kidney disease stage V | | | presents with decreasing KT over V. 585.6, 996.1 EXAMINATION | | | Left the brachiocephalic fistulogram and angioplasty of the multiple | | | tandem stenosis in mid and distal left cephalic vein using 8 mm x 4 cm | | | balloon catheter. MEDICATIONS: Isovue-200 45 cc, Heparin | | | 3000 units intravenous, Versed 0 mg intravenous, fentanyl 0-mcg | | | intravenous. Intra-procedure sedation time 0 minutes. The | | | radiation dose 18 mGray, Fluoroscopy time 1.4 minutes. Appropriate | | | physiologic monitoring, maintenance of adequate conscious sedation | | | and independent [place] [facility] supervision performed throughout the | | | [...] needle and | | | exchanged for 4-Argentine micropuncture sheath. Initial fistula | | | pressure was obtained and fistulogram obtained from the left cubital | | | fossa to the right atrium. Given the tandem stenosis in mid and | | | distal left cephalic vein, I decided to perform angioplasty of the | | | venous lesions. 4-Argentine micropuncture sheath was exchanged for | | | 6-Argentine short sheath over a 0.035, angled Glidewire. 8 mm x 4 cm | | | balloon catheter was advanced over the 0.035, angled Glidewire. | | | Balloon was positioned across stenosis in mid and distal left | | | cephalic vein and angioplasty was performed. During inflation of the | | | balloon across the venous anastomosis Reflux evaluation of the | | | arteriovenous anastomosis obtained. Subsequently, balloon was | | | deflated and a final fistulogram obtained from the left cubital fossa | | | to the right atrium. Final fistula pressure and arterial pressures | | | were obtained. All catheters and wires then removed and hemostasis | | | obtained with manual pressure. No immediate procedural | | | complications. Patient tolerated the procedure well. FINDINGS | | | 1. Initial fistula pressure 117/74 mm Hg, arterial pressure 163/93 | | | mm Hg, final fistula pressure 96/67 mm Hg. 2. Left the | | | brachiocephalic fissure gram revealed tandem, focal, more than 80 | | | percent stenosis in mid and distal left cephalic vein. Central veins | | | widely patent. Arterial venous anastomoses widely patent. 3. | | | Successful angioplasty the mid and distal left cephalic venous | | | stenosis with no residual stenosis. | | + + + + + | Procedure Note | + + | Manoj Weiss Conversion - 12/28/2018 2:18 PM [facility] | | FISTULAGRAM06/26/2014 1:05 PM HISTORY:54 years. Male. With chronic kidney disease stage | | V presents with decreasing KT over V. 585.6, 996.1 EXAMINATION Left the | | brachiocephalic fistulogram and angioplasty of the multiple tandem stenosis in mid and | | distal left cephalic vein using 8 mm x 4 cm balloon catheter. MEDICATIONS: Isovue-200 | | 45 cc, Heparin 3000 units intravenous, Versed 0 mg intravenous, fentanyl 0-mcg | | intravenous. Intra-procedure sedation time 0 minutes. The radiation dose 18 mGray, | | Fluoroscopy time 1.4 minutes. Appropriate physiologic monitoring, maintenance of | | adequate conscious sedation and independent [place] [facility] supervision performed | | throughout the procedure. [...] | | micropuncture needle and exchanged for 4-Argentine micropuncture sheath. Initial fistula | | pressure was obtained and fistulogram obtained from the left cubital fossa to the right | | atrium. Given the tandem stenosis in mid and distal left cephalic vein, I decided to | | perform angioplasty of the venous lesions. 4-Argentine micropuncture sheath was exchanged | | for 6-Argentine short sheath over a 0.035, angled Glidewire. 8 mm x 4 cm balloon catheter | | was advanced over the 0.035, angled Glidewire. Balloon was positioned across stenosis | | in mid and distal left cephalic vein and angioplasty was performed. [...] the procedure well. FINDINGS1. Initial fistula pressure 117/74 mm Hg, arterial | | pressure 163/93 mm Hg, final fistula pressure 96/67 mm Hg.2. Left the brachiocephalic | | fissure gram revealed tandem, focal, more than 80 percent stenosis in mid and distal | | left cephalic vein. Central veins widely patent. Arterial venous anastomoses widely | | patent.3. Successful angioplasty the mid and distal left cephalic venous stenosis with | | no residual stenosis. IMPRESSION: 1. Successful left brachycephalic fissure gram and | | angioplasty the mid and distal left cephalic venous stenosis with good hemodynamic and | | anatomic results. [id number], [id number], 75511 Electronically signed by Ziyad Russ MD on | | 06/26/2014 3:20 PM | |3. Successful angioplasty the mid and distal left cephalic venous stenosis with no residua l stenosis. | | | |IMPRESSION: | |1. Successful left brachycephalic fissure gram and angioplasty the mid and distal left cep halic venous stenosis with good hemodynamic and anatomic results. | | | |19603, 84913, 29583 | | | | | + + IR Inj Dialysis Circuit (06/26/2014 1:05 PM PST) + + | Specimen | + + | | + + + + + | Impressions | Performed At | + + + | 1. Successful left brachycephalic fissure gram and angioplasty the | | | mid and distal left cephalic venous stenosis with good hemodynamic | | | and anatomic results. [id number], 75461, 73442 Electronically | | | signed by Ziyad Russ MD on 06/26/2014 3:20 PM | | + + + + + + | Narrative | Performed At | + + + | [facility]IALYS[facility] FISTULAGRAM 06/26/2014 1:05 PM | | | HISTORY: 54 years. Male. With chronic kidney disease stage V | | | presents with decreasing KT over V. 585.6, 996.1 EXAMINATION | | | Left the brachiocephalic fistulogram and angioplasty of the multiple | | | tandem stenosis in mid and distal left cephalic vein using 8 mm x 4 cm | | | balloon catheter. MEDICATIONS: Isovue-200 45 cc, Heparin | | | 3000 units intravenous, Versed 0 mg intravenous, fentanyl 0-mcg | | | intravenous. Intra-procedure sedation time 0 minutes. The | | | radiation dose 18 mGray, Fluoroscopy time 1.4 minutes. Appropriate | | | physiologic monitoring, maintenance of adequate conscious sedation | | | and independent [place] [facility] supervision performed throughout the | | | [...] needle and | | | exchanged for 4-Argentine micropuncture sheath. Initial fistula | | | pressure was obtained and fistulogram obtained from the left cubital | | | fossa to the right atrium. Given the tandem stenosis in mid and | | | distal left cephalic vein, I decided to perform angioplasty of the | | | venous lesions. 4-Argentine micropuncture sheath was exchanged for | | | 6-Argentine short sheath over a 0.035, angled Glidewire. 8 mm x 4 cm | | | balloon catheter was advanced over the 0.035, angled Glidewire. | | | Balloon was positioned across stenosis in mid and distal left | | | cephalic vein and angioplasty was performed. During inflation of the | | | balloon across the venous anastomosis Reflux evaluation of the | | | arteriovenous anastomosis obtained. Subsequently, balloon was | | | deflated and a final fistulogram obtained from the left cubital fossa | | | to the right atrium. Final fistula pressure and arterial pressures | | | were obtained. All catheters and wires then removed and hemostasis | | | obtained with manual pressure. No immediate procedural | | | complications. Patient tolerated the procedure well. FINDINGS | | | 1. Initial fistula pressure 117/74 mm Hg, arterial pressure 163/93 | | | mm Hg, final fistula pressure 96/67 mm Hg. 2. Left the | | | brachiocephalic fissure gram revealed tandem, focal, more than 80 | | | percent stenosis in mid and distal left cephalic vein. Central veins | | | widely patent. Arterial venous anastomoses widely patent. 3. | | | Successful angioplasty the mid and distal left cephalic venous | | | stenosis with no residual stenosis. | | + + + + + | Procedure Note | + + | Abhishek, Rad Conversion - 12/28/2018 2:18 PM PDT [facility] | | FISTULAGRAM06/26/2014 1:05 PM HISTORY:54 years. Male. With chronic kidney disease stage | | V presents with decreasing KT over V. 585.6, 996.1 EXAMINATION Left the | | brachiocephalic fistulogram and angioplasty of the multiple tandem stenosis in mid and | | distal left cephalic vein using 8 mm x 4 cm balloon catheter. MEDICATIONS: Isovue-200 | | 45 cc, Heparin 3000 units intravenous, Versed 0 mg intravenous, fentanyl 0-mcg | | intravenous. Intra-procedure sedation time 0 minutes. The radiation dose 18 mGray, | | Fluoroscopy time 1.4 minutes. Appropriate physiologic monitoring, maintenance of | | adequate conscious sedation and independent [place] [facility] supervision performed | | throughout the procedure. [...] | | micropuncture needle and exchanged for 4-Argentine micropuncture sheath. Initial fistula | | pressure was obtained and fistulogram obtained from the left cubital fossa to the right | | atrium. Given the tandem stenosis in mid and distal left cephalic vein, I decided to | | perform angioplasty of the venous lesions. 4-Argentine micropuncture sheath was exchanged | | for 6-Argentine short sheath over a 0.035, angled Glidewire. 8 mm x 4 cm balloon catheter | | was advanced over the 0.035, angled Glidewire. Balloon was positioned across stenosis | | in mid and distal left cephalic vein and angioplasty was performed. [...] the procedure well. FINDINGS1. Initial fistula pressure 117/74 mm Hg, arterial | | pressure 163/93 mm Hg, final fistula pressure 96/67 mm Hg.2. Left the brachiocephalic | | fissure gram revealed tandem, focal, more than 80 percent stenosis in mid and distal | | left cephalic vein. Central veins widely patent. Arterial venous anastomoses widely | | patent.3. Successful angioplasty the mid and distal left cephalic venous stenosis with | | no residual stenosis. IMPRESSION: 1. Successful left brachycephalic fissure gram and | | angioplasty the mid and distal left cephalic venous stenosis with good hemodynamic and | | anatomic results. 53617, 86655, 47323 Electronically signed by Ziyad Russ MD on | | 06/26/2014 3:20 PM | |3. Successful angioplasty the mid and distal left cephalic venous stenosis with no residua l stenosis. | | | |IMPRESSION: | |1. Successful left brachycephalic fissure gram and angioplasty the mid and distal left cep halic venous stenosis with good hemodynamic and anatomic results. | | | |07317, 56386, 67954 | | | | | + + documented in this encounter Visit Diagnoses + + | Diagnosis | + + | End stage renal disease (HCC) End stage renal disease | + + | Mechanical complication of other vascular device, implant, and graft | + + documented in this encounter"
--- OUTSIDE RECORDS SUMMARY | ~2019-05-09 | XMS | Encounter Summary ---
Demographics + + + | Address | [address] | | | [place] [address] | + + + | Home Phone [...] + + | Author | [facility] | + + + | Organization [...] Team Providers + +------+ + | Care Printing Film Stripper Name | Role | Phone | + [...] | | | | Mirlande Nunes [place], | | | | | | [place] [address] | | | +--------+ + + + [...] + + + | [facility] - | [address] | [place] [address] | | | IMMUNOGENETICS/TRANS | [address] | | | | PLANT [facility] | | | | + + + + + documented in this encounter Visit Diagnoses Not on filedocumented in this encounter"
--- OUTSIDE RECORDS SUMMARY | ~2019-05-09 | XMS | Encounter Summary ---
Demographics + + + | Address | [address] | | | [place] [address] | + + + | Home Phone [...] Author + + + | Author | [facility] [employer] [facility] | + + + [...] Providers + +------+ + | Care Aircraft Cleaner Name | Role | Phone | [...] | | | | | Mirlande Nunes [place], | | | | | | [place] [address] | | | +--------+ + + + [...] [facility] - | [address] | [place] [address] | | | IMMUNOGENETICS/TRANS | [address] | | | | PLANT LABORATORY | | | | + + + + + documented in this encounter Visit Diagnoses Not on filedocumented in this encounter"
--- OUTSIDE RECORDS SUMMARY | ~2019-05-09 | XMS | Encounter Summary ---
Demographics + + + | Address | [address] | | | [place] [address] | + + + | Home Phone | | + + + | Preferred Language | Unknown | + + + | Marital Status | Unknown | + + + | Orthodox Affiliation | Unknown | + + + | Race | Unknown | + + + | Ethnic Group | Unknown | + + + Author + + + | Author | [facility] | | | and [place] | + + + | Organization | [facility] | | | [...] Providers + +------+ + | Care Cook Morning Name | Role | Phone | + +------+ + PCP | Unavailable | + +------+ + Encounter Details +--------+ + + + + | Date | Type | Department | Care Team | Description | +--------+ + + + + | 06/01/ | Orders Only | [facility] | Alexx Gutierrez MD | | | 2018 | | NEPHROLOGY [place] | [address] [place] | | | | | [address] [place] | [address] [place], [place] | | | | | [address] [place], [place] | [address] | | | | | [address] | | | | | | [phone] | | | +--------+ + + + [...] Visit | | [address] [facility] | | | | | | [address] [facility] | | | | | | [address] | | | | | | | | +--------+---------+ + + + documented as of this encounter Procedures + +--------+ + + + | Procedure Name | Priori | Date/Time | Associated Diagnosis | Comments | | | ty | | | | + +--------+ + + + | ALT | Routin | 06/01/2018 | | Results for this | | | e | 10:30 AM | | procedure are in the | | | | PST | | results section. | + +--------+ + + + | VITAMIN D, | Routin | 06/01/2018 | | Results for this | | DEFICIENCY SCREEN | e | 10:30 AM | | procedure are in the | | (25-HYDROXY) | | PST | | results section. | + +--------+ + + + | PARATHYROID HORMONE, | Routin | 06/01/2018 | | Results for this | | INTACT AND CALCIUM | e | 10:30 AM | | procedure are in the | | | | PST | | results section. | + +--------+ + + + | PROTEIN/CREATININE | Routin | 06/01/2018 | | Results for this | | RATIO, URINE | e | 10:30 AM | | procedure are in the | | | | PST | | results section. | + +--------+ + + + | AST | Routin | 06/01/2018 | | Results for this | | | e | 10:30 AM | | procedure are in the | | | | PST | | results section. | + +--------+ + + + | CK TOTAL | Routin | 06/01/2018 | | Results for this | | | e | 10:30 AM | | procedure are in the | | | | PST | | results section. | + +--------+ + + + documented in this encounter Results Parathyroid Hormone, Intact and Calcium (06/01/2018 10:30 AM PST) + + + + + + | Component | Value | Ref Range | Performed | Pathologist | | | | | At | Signature | + + + + + + | PTH Intact | 70.31 (A) | 15 - 65 | EXTERNAL | | | | | [...] + +---------+ + + Protein/Creatinine Ratio, Urine (06/01/2018 10:30 AM PST) + + + + + + | Component | Value | Ref Range | Performed | Pathologist | | | | | At | Signature | + + + + + + | Protein/Cre | 2894.4 (A) | 0 - 150 | EXTERNAL [...] + + Vitamin D, Deficiency Screen (25-Hydroxy) (06/01/2018 10:30 AM PST) + +--------+ + + + | Component | Value | Ref Range | Performed | Pathologist | | | | | At | Signature | + +--------+ + + + | Vit D, | 29 (A) | 30 - 100 | EXTERNAL [...] | | + +---------+ + + ALT (06/01/2018 10:30 AM PST) + +-------+ + + + | Component | Value | Ref Range | Performed | Pathologist | | | | | At | Signature | + +-------+ + + + | ALT | 46 | 7 - 52 U/L | EXTERNAL [...] | | + +---------+ + + AST (06/01/2018 10:30 AM PST) + +-------+ + + + | Component | Value | Ref Range | Performed | Pathologist | | | | | At | Signature | + +-------+ + + + | AST | 39 | 13 - 39 U/L | EXTERNAL [...] | + +---------+ + + CK Total (06/01/2018 10:30 AM PST) + +---------+ + + + | Component | Value | Ref Range | Performed | Pathologist | | | | | At | Signature | + +---------+ + + + | CK, Total | 357 (A) | 24 - 195 U/L | [...]
--- OUTSIDE RECORDS SUMMARY | ~2019-05-09 | XMS | Encounter Summary ---
Demographics + + + | Address | [address] | | | [place] [address] | + + + | Home Phone | | + + + | Preferred Language | Unknown | + + + | Marital Status | Single | + + + | Worship Affiliation | Unknown | + + + | Race | Black or | + + + | Ethnic Group | Not or | + + + Author + + + | Author | [facility] [employer] [facility] | + + + [...] Team Providers + +------+ + | Care Breaker Machine Operator Name | Role | Phone [...] | | | | | Mirlande Nunes [place], | | | | | | [place] [address] | | | +--------+ + + + [...] [facility] - | [address] | [place] [address] | | | IMMUNOGENETICS/TRANS | [address] [...] [facility] - | [address] | [place] [address] | | | IMMUNOGENETICS/TRANS | [address] | | | | PLANT LABORATORY | | | | + + + + + documented in this encounter Visit Diagnoses Not on filedocumented in this encounter"
--- OUTSIDE RECORDS SUMMARY | ~2019-05-09 | XMS | Encounter Summary ---
Demographics + + + | Address | [address] | | | [place] [address] | + + + | Home Phone | | + + + | Preferred Language | Unknown | + + + | Marital Status | Unknown | + + + | Denominational Affiliation | Unknown | + + + | Race | Unknown | + + + | Ethnic Group | Unknown | + + + Author + + + | Author | [facility] | | | and [place] | + + + | Organization | [facility] | | | [...] Team Providers + +------+ + | Care Postage Machine Operator Name | Role | Phone | + +------+ + | Oziel Michael MD | PCP | | + +------+ + Encounter Details +--------+ + + + + | Date | Type | Department | Care Team | Description | +--------+ + + + + | 02/22/ | Orders Only | [facility] | Radha Szymanski | | | 2019 | | NEPRHOLOGY [place] | V, Medical | | | | | [address] | Scanning Tech | | | | | [address] [place], [place] | | | | | | [address] | | | | | | [phone] | | | +--------+ + + + [...] [place] | | | | | | [address] | | | | | | | | +--------+---------+ + + + documented as of this encounter Visit Diagnoses Not on filedocumented in this encounter"
--- OUTSIDE RECORDS SUMMARY | ~2019-05-09 | XMS | Encounter Summary ---
Demographics + + + | Address | [address] | | | [place] [address] | + + + | Home Phone [...] + + + | Author | [facility] | + + + | Organization | [facility] | + + + | Address | Unknown | + + + | Phone | Unavailable | + + + Support + + +---------+ + | Name | Relationship | Address | Phone | + + +---------+ + | Olesya aLmb | ECON | Unknown | | + + +---------+ + Care Team Providers + +------+ + | Care Warrant Clerk Name | Role | Phone | [...] | | | | | status | [place] | [address] | | | | | Procedures | [address] | Mailcode: | | | | | eval & treat | [place], | [address] [place] | | | | | | [place] [address] | for Health | | | | | | Phone: | and Healing, | | | | | | [phone] | [address], | | | | | | Fax: | 5th Floor | | | | | | [phone] | [place], [place] | | | | | | | [address] | | | | | | | Phone: | | | | | | | [phone] | | | | | | | Fax: | | | | | | | [phone] | +--------+ + + + + + Encounter Details +--------+---------+ + + + | Date | Type | Department | Care Team | Description | +--------+---------+ + + + | 08/17/ | Office | Dermatology | Carlos, | Viral warts, | | 2016 | Visit | Medical at [facility] 5th | Matty Cordova MD [address] | unspecified type | | | | Floor [address] | [address] | (Primary Dx); | | | | Ave Mailcode: [address] | [facility] [place] | Foreign body | | | | [facility] | [address] | granuloma of skin | | | | and Healing, | [phone] | and subcutaneous | | | | [facility] | | tissue | | | | Floor [place], [place] | | | | | | [address] | | | | | | [phone] | | | +--------+---------+ + + + [...] skin cance rs including melanoma. ? The [place] [employer] (AAD) recommends you wear [...] information is available at the following websites: [email or web address] - [facility] Derm atology http://www.aad.org/public/sun/smart.html - AAD Website documented in this encounter Progress Notes Matty Gonzalez MD - 08/17/2016 3:00 PM PDTFormatting of this note might be differ ent from the original. [facility] HIGH-RISK NON-MELANOMA SKIN CANCER CLINIC NEW [...] Co-Director, [facility] Clinical Box Spinner, Dermatology [facility] [email or web address] M.[email or web address]. Co-Director, [facility] Box Spinner, Dermatologic Surgery [facility] [email or web address] documented in this encounter Plan of Treatment Not on filedocumented as of this encounter Procedures + +--------+ + + + | Procedure Name | Priori | Date/Time | Associated Diagnosis | Comments | | | ty | | | | + +--------+ + + + | [place] DESTRUC BENIGN | Routin | 08/17/2016 | [...]
--- OUTSIDE RECORDS SUMMARY | ~2019-05-09 | XMS | Encounter Summary ---
Demographics + + + | Address | [address] | | | [place] [address] | + + + | Home Phone [...] | Author | [facility] [employer] [facility] | + + + [...] Team Providers + +------+ + | Care Threading Machine Setter Name | Role | Phone | + [...] | | | | | Mirlande Nunes [place], | | | | | | [place] [address] | | | +--------+ + + + [...] [facility] - | [address] | [place] [address] | | | IMMUNOGENETICS/TRANS | [address] | | | | PLANT LABORATORY | | | | + + + + + documented in this encounter Visit Diagnoses Not on filedocumented in this encounter"
--- OUTSIDE RECORDS SUMMARY | ~2019-05-09 | XMS | Encounter Summary ---
Demographics + + + | Address | [address] | | | [place] [address] | + + + | Home Phone [...] Team Providers + +------+ + | Care Chemist Physical Name | Role | Phone | + +------+ + | Oziel Michael MD | PCP | | + +------+ + Encounter Details +--------+---------+ + + + | Date | Type | Department | Care Team | Description | +--------+---------+ + + + | 02/25/ | Office | [facility] | Alxex Gutierrez MD | Kidney replaced by | | 2019 | Visit | NEPHROLOGY [place] | [address] [place] | transplant (Primary | | | | [address] | [address] [facility] [place] | Dx); | | | | [address] | [address] | Immunosuppression | | | | [place], [place] | | ([facility]); intermediate | | | | [address] | | (current) use of | | | | [phone] | | 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; | | | [...] | | | | | ([facility]); | | | | | | Immunosuppressive | | | | | | management encounter | | | | | | following kidney | | | | | | transplant; | | | | | | 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 I sent him for a DEXA scan in 04/2019 (intermediate (current) use of 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). He will [...] Tacrolimus level, reflex uri nalysis, Urine total ujcukmk-jf-jusrapruxl ratio before he comes back in 3 months (he will [place] ee the [place] in 03/2019).Electronically signed by Alexx Gutierrez MD at 2018 3:14 PM PDT documented in this encounter Progress Notes Alexx Gutierrez MD - 02/25/2019 2:30 PM PDT Patient Active Problem List Diagnosis Date Noted POA intermediate (current) use of 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 08/20/2018 Unknown [...] LABIRON 26.5 06/27/2016 LABPROT 2,928.1 (A) 11/30/2018 RVSP12FJALJ 29 (A) 06/01/2018 *quantitative BK virus DNA [...] 2021 DENTIST: every 6 months PSA: 08/2020 PLASMA CUTTING MACHINE OPERATOR/MAMMOGRAM: N/A HbA1c 6.8% on 07/25/16 IMMUNOSUPPRESSION: Adequate Also: I sent him for his yearly Dermatology check in 03/2019. I sent him for a DEXA scan in 04/2019 (intermediate (current) use of 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). He will [...] Tacrolimus level, reflex uri nalysis, Urine total lsrafws-sh-uizwticcvc ratio before he comes back in 3 months (he will s ee the K Tx team in [place] in 03/2019). Thank you Isrrael for the opportunity to see this high-complexity renal transplant patient in F/U today. Please do not hesitate to call me at any time with questions or concerns. Truly yours, Alexx Gutierrez MD [facility] documented in this enco unter Plan [...] [place] | | | | | | [address] | | | | | | | | +--------+---------+ + + + documented as of this encounter Visit Diagnoses + + | Diagnosis | + + | Kidney replaced by transplant - Primary | + + | Immunosuppression (HCC) Unspecified disorder of immune mechanism | + + | manager long term care (current) use of 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 | + [...]
--- OUTSIDE RECORDS SUMMARY | ~2019-05-09 | XMS | Encounter Summary ---
Demographics + + + | Address | [address] | | | [place] [address] | + + + | Home Phone [...] | Author | [facility] [employer] | + + + [...] Team Providers + +------+ + | Care Agricultural Crop Farm Manager Name | Role | Phone | [...] | | | | | Mirlande Nunes [place], | | | | | | [place] [address] | | | +--------+ + + + [...] [facility] - | [address] | [place] [address] | | | IMMUNOGENETICS/TRANS | [address] [...] | [facility] - | [address] | [place] [address] | | | IMMUNOGENETICS/TRANS | [address] [...] + + + | [facility] - | [address] | [place] [address] | | | IMMUNOGENETICS/TRANS | [address] | | | | PLANT LABORATORY | | | | + + + + + documented in this encounter Visit Diagnoses Not on filedocumented in this encounter"
--- OUTSIDE RECORDS SUMMARY | ~2019-05-09 | XMS | Encounter Summary ---
Demographics + + + | Address | [address] | | | [place] [address] | + + + | Home Phone [...] Team Providers + +------+ + | Care Water Quality Assistant Name | Role | Phone | + +------+ + PCP | Unavailable | + +------+ + Encounter Details +--------+ + + + + | Date | Type | Department | Care Team | Description | +--------+ + + + + | 09/04/ | Orders Only | [facility] | Conversion | | | 2018 | | NEPHROLOGY [place] | Transaction, | | | | | [address] [place] | Provider Unknown | | | | | [address] [place], [place] | | | | | | [address] | (Fax) | | | | | [phone] | | | +--------+ + + + [...] 2019 | Visit | | [address] [facility] | | | | | | [address] [place], [place] | | | | | | [address] | | | | | | | | +--------+---------+ + + + documented as of this encounter Procedures + +--------+ + + + | Procedure Name | Priori | Date/Time | Associated Diagnosis | Comments | | | ty | | | | + +--------+ + + + | PSA, SCREEN | Routin | 09/04/2018 | | Results for this | | | e | 7:50 AM | | procedure are in the | | | | PDT | | results section. | + +--------+ + + + | CK TOTAL | Routin | 09/04/2018 | | Results for this | | | e | 7:50 AM | | procedure are in the | | | | PDT | | results section. | + +--------+ + + + documented in this encounter Results PSA, Screen (09/04/2018 7:50 AM PDT) + +-------+ + + + | Component | Value | Ref Range | Performed | Pathologist | | | | | At | Signature | + +-------+ + + + | PSA, Free | 0.206 | 0.0 - 4.0 ng/mL | EXTERNAL | | | Pct | [...] | + +---------+ + + CK Total (09/04/2018 7:50 AM PDT) + +---------+ + + + | Component | Value | Ref Range | Performed | Pathologist | | | | | At | Signature | + +---------+ + + + | CK, Total | 245 (A) | 24 - 195 U/L | [...]
--- OUTSIDE RECORDS SUMMARY | ~2019-05-09 | XMS | Encounter Summary ---
Demographics + + + | Address | [address] | | | [place] [address] | + + + | Home Phone [...] Providers + +------+ + | Care Building Maintenance Mechanic Name | Role | Phone | + +------+ + PCP | Unavailable | + +------+ + Encounter Details +--------+ + + + + | Date | Type | Department | Care Team | Description | +--------+ + + + + | 09/04/ | Orders Only | [facility] | Alexx Gutierrez MD | | | 2018 | | NEPHROLOGY [place] | [address] [place] | | | | | [address] [place] | [address] [place], [place] | | | | | [address] [place], [place] | [address] | | | | | [address] | | | | | | [phone] | | | +--------+ + + + [...] 2019 | Visit | | [address] [facility] | | | | | | [facility] | | | | | | [address] | | | | | | | [...]
--- OUTSIDE RECORDS SUMMARY | ~2019-05-09 | XMS | Encounter Summary ---
Demographics + + + | Address | [address] | | | [place] [address] | + + + | Home Phone [...] + + | Author | [facility] [employer] [facility] | + + [...] Team Providers + +------+ + | Care Pharmacist Aide Name | Role | Phone | [...] | | | | | Mirlande Nunes [place], | | | | | | [place] [address] | | | +--------+ + + + [...] [facility] - | [address] | [place] [address] | | | IMMUNOGENETICS/TRANS | [address] | | | | PLANT LABORATORY | | | | + + + + + documented in this encounter Visit Diagnoses Not on filedocumented in this encounter"
--- OUTSIDE RECORDS SUMMARY | ~2019-05-09 | XMS | Encounter Summary ---
Demographics + + + | Address | [address] | | | [place] [address] | + + + | Home Phone | | + + + | Preferred Language | Unknown | + + + | Marital Status | Single | + + + | Yazidism Affiliation | Unknown | + + + | Race | Black or | + + + | Ethnic Group | Not or | + + + Author + + + | Author | [facility] [employer] [facility] | + + + | [...] Providers + +------+ + | Care Public Bath Attendant Name | Role | Phone | [...] | | | | | status | [place] | [address] | | | | | Procedures | [address] | Mailcode: | | | | | eval & treat | [place], | [address] [place] | | | | | | [place] [address] | for Health | | | | | | Phone: | and Healing, | | | | | | [phone] | [address], | | | | | | Fax: | 5th Floor | | | | | | [phone] | [place], [place] | | | | | | | [address] | | | | | | | Phone: | | | | | | | [phone] | | | | | | | Fax: | | | | | | | [phone] | +--------+ + + + + + Encounter Details +--------+---------+ + + + | Date | Type | Department | Care Team | Description | +--------+---------+ + + + | 08/17/ | Office | Dermatology | [place], | Viral warts, | | 2016 | Visit | [facility] at [facility] 5[facility] | Matty Cordova MD [address] | unspecified type | | | | Floor [address] | [address] | (Primary Dx); | | | | Ave Mailcode: [address] | [facility] [place] | Foreign body | | | | [facility] | [address] | granuloma of skin | | | | and Healing, | [phone] | and subcutaneous | | | | [facility] | | tissue | | | | Floor [place], [place] | | | | | | [address] | | | | | | [phone] | | | +--------+---------+ + + + [...] skin cance rs including melanoma. ? The [place] [employer] (AAD) recommends you wear [...] information is available at the following websites: http://www.[facility]/xd/health/services/dermatology/for-patients/health_info.cfm - [facility] Derm atology http://www.aad.org/public/sun/smart.html - AAD Website documented in this encounter Progress Notes Matty Gonzalez MD - 08/17/2016 3:00 PM PDTFormatting of this note might be differ ent from the original. [facility] HIGH-RISK NON-MELANOMA SKIN CANCER CLINIC NEW PATIENT [...] Co-Director, [facility] Trans[facility] Patients Clinical Grievance And Appeals Coordinator, Dermatology [facility] [email or web address] Matty Gonzalez M.D. Co-Director, [facility] for Transplant Patients Grievance And Appeals Coordinator, Dermatologic Surgery [facility] [email or web address] documented in this encounter Plan of Treatment Not on filedocumented as of this encounter Procedures + +--------+ + + + | Procedure Name | Priori | Date/Time | Associated Diagnosis | Comments | | | ty | | | | + +--------+ + + + | [place] DESTRUC BENIGN | Routin | 08/17/2016 | [...]
--- OUTSIDE RECORDS SUMMARY | ~2019-05-09 | XMS | Encounter Summary ---
Demographics + + + | Address | [address] | | | [place] [address] | + + + | Home Phone | | + + + | Preferred Language | Unknown | + + + | Marital Status | Single | + + + | Lutheran Affiliation | Unknown | + + + | Race | Black or | + + + | Ethnic Group | Not or | + + + Author + + + | Author | [facility] | + + [...] Team Providers + +------+ + | Care Lye Treater Name | Role | Phone | + [...] | | | | | Mirlande Nunes [place], | | | | | | [place] [address] | | | +--------+ + + + [...] [facility] - | [address] | [place] [address] | | | IMMUNOGENETICS/TRANS | [address] | | | | PLANT LABORATORY | | | | + + + + + documented in this encounter Visit Diagnoses Not on filedocumented in this encounter"
--- OUTSIDE RECORDS SUMMARY | ~2019-05-09 | XMS | Encounter Summary ---
Demographics + + + | Address | [address] | | | [place] [address] | + + + | Home Phone | | + + + | Preferred Language | Unknown | + + + | Marital Status | Unknown | + + + | Shinto Affiliation | Unknown | + + + [...] Team Providers + +------+ + | Care Teacher Dramatics Name | Role | Phone | + +------+ + PCP | Unavailable | + +------+ + Encounter Details +--------+ + + + + | Date | Type | Department | Care Team | Description | +--------+ + + + + | 10/25/ | Hospital | [facility] | Conversion | ESRD (end stage | | 2013 | Encounter | CENTER CV INTRA OP | Transaction, | renal disease) ([facility]) | | | | [address] | Provider Unknown | | | | | [place], [place] | [phone] | | | | | [address] | | | | | | [phone] | Leonardo Dickey, [address] | | | | | | [address] | | | | | | [place], [place] | | | | | | [address] | | | | | | [phone] | | | | | | | [...] 10/25/121757 Date of Service: 10/25/121755 Status: Signed Vein Access Technician: Sushant Mata RN (Registered Nurse) Pt [...] 2020 | Visit | | [address] [facility] [address] | | | | | | [address] [facility] | | | | | | [address] | | | | | | | [...] mm cutting balloon. SURGEON Leonardo Dickey MD CLAM DIGGER None. | | | ANESTHESIA Moderate sedation, [...] stent itself. | | | Therefore, a 6-New Zealander sheath was inserted over a wire. First [...] Leonardo Dickey MD | | | | CLAM DIGGER | | None. | | | | [...] stenosis in the stent itself. Therefore, a 6-New Zealander sheath | | was inserted over a [...] mm cutting balloon. SURGEON Leonardo Dickey MD CLAM DIGGER None. | | | ANESTHESIA Moderate sedation, [...] stent itself. | | | Therefore, a 6-New Zealander sheath was inserted over a wire. First [...] Leonardo Dickey MD | | | | CLAM DIGGER | | None. | | | | [...] stenosis in the stent itself. Therefore, a 6-New Zealander sheath | | was inserted over a [...]
--- OUTSIDE RECORDS SUMMARY | ~2019-05-09 | XMS | Encounter Summary ---
Demographics + + + | Address | [address] | | | [place] [address] | + + + | Home Phone [...] +------+ + | Care Associate Professor Of Art History Name | Role | Phone | + +------+ + PCP | Unavailable | + +------+ + Encounter Details +--------+ + + + + | Date | Type | Department | Care Team | Description | +--------+ + + + + | 10/25/ | Hospital | [facility] | Conversion | ESRD (end stage | | 2013 | Encounter | CENTER CV INTRA OP | Transaction, | renal disease) ([facility]) | | | | [address] | Provider Unknown | | | | | [place], [place] | [phone] | | | | | [address] | | | | | | [phone] | Leonardo Dickey, [address] | | | | | | [address] | | | | | | [place], [place] | | | | | | [address] | | | | | | [phone] | | | | | | | [...] 10/25/121757 Date of Service: 10/25/121755 Status: Signed Nursing Program Chair: Sushant Mata RN (Registered Nurse) Pt given [...] 2020 | Visit | | [address] [facility] [address] | | | | | | [address] [facility] | | | | | | [address] | | | | | | | [...] mm cutting balloon. SURGEON Leonardo Dickey MD QUALITY CONTROL LAB TECH None. | | | ANESTHESIA Moderate sedation, [...] stent itself. | | | Therefore, a 6-Cayman Islander sheath was inserted over a wire. First [...] Leonardo Dickey MD | | | | QUALITY CONTROL LAB TECH | | None. | | | | [...] stenosis in the stent itself. Therefore, a 6-Cayman Islander sheath | | was inserted over a [...] mm cutting balloon. SURGEON Leonardo Dickey MD QUALITY CONTROL LAB TECH None. | | | ANESTHESIA Moderate sedation, [...] stent itself. | | | Therefore, a 6-Cayman Islander sheath was inserted over a wire. First [...] Leonardo Dickey MD | | | | QUALITY CONTROL LAB TECH | | None. | | | | [...] stenosis in the stent itself. Therefore, a 6-Cayman Islander sheath | | was inserted over a [...]
--- OUTSIDE RECORDS SUMMARY | ~2019-05-09 | XMS | Encounter Summary ---
Demographics + + + | Address | [address] | | | [place] [address] | + + + | Home Phone | | + + + | Preferred Language | Unknown | + + + | Marital Status | Single | + + + | Samaritan Affiliation | Unknown | + + + | Race | Black or | + + + | Ethnic Group | Not or | + + + Author + + + | Author | [facility] [facility] | + + + | Organization [...] Team Providers + +------+ + | Care Press Clipper Name | Role | Phone | + [...] | | | | | Mir[place]e Nunes [place], | | | | | | [place] [address] | | | +--------+ + + + [...] + + + | [facility] - | [address] | [place] [address] | | | IMMUNOGENETICS/TRANS | [address] | | | | PLANT LABORATORY | | | | + + + + + documented in this encounter Visit Diagnoses Not on filedocumented in this encounter"
--- OUTSIDE RECORDS SUMMARY | ~2019-05-09 | XMS | Encounter Summary ---
Demographics + + + | Address | [address] | | | [place] [address] | + + + | Home Phone [...] Author + + + | Author | Replaced By [facility] | + + + [...] Team Providers + +------+ + | Care Aeronautics Commission Director Name | Role | Phone | [...] | | | | | Mir[place]e Nunes [place], | | | | | | [place] [address] | | | +--------+ + + + [...] + + | [facility] - | [address] | [place] [address] | | | IMMUNOGENETICS/TRANS | [address] [...] [facility] - | [address] | [place] [address] | | | IMMUNOGENETICS/TRANS | [address] | | | | PLANT LABORATORY | | | | + + + + + documented in this encounter Visit Diagnoses Not on filedocumented in this encounter"
--- OUTSIDE RECORDS SUMMARY | ~2019-05-09 | XMS | Encounter Summary ---
Demographics + + + | Address | [address] | | | [place] [address] | + + + | Home Phone [...] Team Providers + +------+ + | Care Nail Artist Name | Role | Phone | + +------+ + PCP | Unavailable | + +------+ + Encounter Details +--------+ + + + + | Date | Type | Department | Care Team | Description | +--------+ + + + + | 09/05/ | Hospital | [facility] | Conversion | ESRD (end stage | | 2013 | Encounter | CENTER CV INTRA OP | Transaction, | renal disease) ([facility]) | | | | [address] | Provider Unknown | | | | | [place], [place] | [phone] | | | | | [address] | | | | | | [phone] | Alexx Gutierrez MD | | | | | | [address] [place] | | | | | | [address] [place], [place] | | | | | | [address] | | | | | | | [...] 09/05/121621 Date of Service: 09/05/121620 Status: Signed Celery Packer: Ruben Giralod RN (Registered Nurse) Remains awake, alert, oriented. [...] 2019 | Visit | | [address] [facility] [place] | | | | | | [address] [place] | | | | | | [address] | | | | | | | [...] conscious sedation and | | | independent [place] [facility] supervision performed [...] | | | needle and exchanged for 4-Turkish micropuncture sheath close to left | | | cubital fossa. Initial fistula pressure was obtained and | | | fistulogram obtained from the left cubital fossa to the right atrium. | | | Given the significant, in-stent restenosis in mid left cephalic | | | vein, I decided to perform angioplasty of the venous lesion. | | | 4-Turkish micropuncture sheath was exchanged for 6-Turkish short | | | sheath over a [...] Abhishek, Rad Conversion - 01/04/2019 11:57 PM [facility] | | FISTULAGRAM09/03/2012 12:00 AM HISTORY:53 [...] adequate conscious sedation and independent | | [place] [facility] supervision performed throughout the procedure. PROCEDURE: Informed [...] micropuncture needle and exchanged for | | 4-Turkish micropuncture sheath close to left cubital fossa. Initial fistula pressure | | was obtained and fistulogram obtained from the left cubital fossa to the right atrium. | | Given the significant, in-stent restenosis in mid left cephalic vein, I decided to | | perform angioplasty of the venous lesion. 4-Turkish micropuncture sheath was exchanged | | for 6-Turkish short sheath over a 0.035, angled Glidewire. [...] conscious sedation and | | | independent [place] [facility] supervision performed [...] | | | needle and exchanged for 4-Turkish micropuncture sheath close to left | | | cubital fossa. Initial fistula pressure was obtained and | | | fistulogram obtained from the left cubital fossa to the right atrium. | | | Given the significant, in-stent restenosis in mid left cephalic | | | vein, I decided to perform angioplasty of the venous lesion. | | | 4-Turkish micropuncture sheath was exchanged for 6-Turkish short | | | sheath over a [...] Abhishek, Manoj Conversion - 01/04/2019 11:57 PM [facility] | | FISTULAGRAM09/03/2012 12:00 AM HISTORY:53 [...] adequate conscious sedation and independent | | [place] [facility] supervision performed throughout the procedure. PROCEDURE: Informed [...] micropuncture needle and exchanged for | | 4-Turkish micropuncture sheath close to left cubital fossa. Initial fistula pressure | | was obtained and fistulogram obtained from the left cubital fossa to the right atrium. | | Given the significant, in-stent restenosis in mid left cephalic vein, I decided to | | perform angioplasty of the venous lesion. 4-Turkish micropuncture sheath was exchanged | | for 6-Turkish short sheath over a 0.035, angled Glidewire. [...]
--- OUTSIDE RECORDS SUMMARY | ~2019-05-09 | XMS | Encounter Summary ---
Demographics + + + | Address | [address] | | | [place] [address] | + + + | Home Phone | | + + + | Preferred Language | Unknown | + + + | Marital Status | Single | + + + | Shinto Affiliation | Unknown | + + + | Race | Black or | + + + | Ethnic Group | Not or | + + + Author + + + | Author | [facility] [employer] [facility] | + + + [...] Team Providers + +------+ + | Care Geodesy Teacher Name | Role | Phone | + +------+ + | Oziel Michael MD | PCP | | + +------+ + Encounter Details +--------+ + + + + | Date | Type | Department | Care Team | Description | +--------+ + + + + | 07/21/ | Ancillary | LAB IMMUNOGENETIC | | | | 2014 | Orders | AND TRANSPLANT LAB | | | | | | [address] | | | | | | [place], | | | | | | [place] [address] | | | +--------+ + + + [...] | + +--------+ + + + | HLA FLOW PRA WITH | Routin | 07/21/2014 | | Results for this | | YEARLY ID | e | 10:16 AM | | procedure are in the | | | | PDT | | results section. | + +--------+ + + + | LIT FLOW HLA AB PRA | Routin | 07/21/2014 | | | | SCREEN I/II | e | 10:16 AM | | | | | | PDT | | | + +--------+ + + + | LIT FLOW HLA II AB | Routin | 07/21/2014 | | | | AG ID, BLOOD | e | 10:16 AM | | | | | | PDT | | | + +--------+ + + + | LIT FLOW HLA I AB AG | Routin | 07/21/2014 | | Results for this | | ID, BLOOD | e | 10:16 AM | | procedure are in the | | | | PDT | | results section. | + +--------+ + + + documented in this encounter Results LIT FLOW HLA II AB AG ID, BLOOD (07/21/2014 10:16 AM PDT) + + | Specimen | + + | Blood - Blood | + + + + + + + | Performing | Address | City/State/Zipcode | Phone Number | | Organization | | | | + + + + + | [facility] - | [address] | [place] [address] | | | IMMUNOGENETICS/TRANS | [address] | | | | PLANT LABORATORY | | | | + + + + + LIT FLOW HLA I AB AG ID, BLOOD (07/21/2014 10:16 AM PDT) + + + + + [...] [facility] - | [address], | [place] [address] | | | IMMUNOGENETICS/TRANS | [address] | | | | PLANT LABORATORY | | | | + + + + + LIT FLOW HLA AB PRA SCREEN I/II (07/21/2014 10:16 AM PDT) + + | Specimen | + + | Blood - Blood | + + + + + + + | Performing | Address | City/State/Zipcode | Phone Number | | Organization | | | | + + + + + | [facility] - | [address] | [place] [address] | | | IMMUNOGENETICS/TRANS | [address] | | | | PLANT LABORATORY | | | | + + + + + documented in this encounter Visit Diagnoses Not on filedocumented in this encounter"
--- OUTSIDE RECORDS SUMMARY | ~2019-05-09 | XMS | Encounter Summary ---
Demographics + + + | Address | [address] | | | [place] [address] | + + + | Home Phone [...] | [facility] | + [...] Team Providers + +------+ + | Care Subsea Engineer Name | Role | Phone | [...] LAB | | | | | | [address] | | | | | | [place], | | | | | | [place] [address] | | | +--------+ + + + [...] + + | [facility] - | [address] | [place] [address] | | | IMMUNOGENETICS/TRANS | [address] [...] [facility] - | [address], | [place] [address] | | | IMMUNOGENETICS/TRANS | [address] | | | | [facility]ANT [facility] | | | | + + + + + documented in this encounter Visit Diagnoses + + | Diagnosis | + + | End stage renal disease (HCC) End stage renal disease | + + documented in this encounter"
--- OUTSIDE RECORDS SUMMARY | ~2019-05-09 | XMS | Encounter Summary ---
Demographics + + + | Address | [address] | | | [place] [address] | + + + | Home Phone [...] Team Providers + +------+ + | Care Ceramic Restorer Name | Role | Phone | + +------+ + | Oziel Michael MD | PCP | | + +------+ + Encounter Details +--------+ + + + + | Date | Type | Department | Care Team | Description | +--------+ + + + + | 05/20/ | Orders Only | [facility] | Conversion | | | 2016 | | NEPHROLOGY [place] | Transaction, | | | | | [address] | Provider Unknown | | | | | [address] [place], [place] | | | | | | [address] | (Fax) | | | | | [phone] | | | +--------+ + + + [...] | | | | | | [address] [place], [place] | | | | | | [address] | | | | | | | | +--------+---------+ + + + documented as of this encounter Procedures + +--------+ + + + | Procedure Name | Priori | Date/Time | Associated Diagnosis | Comments | | | ty | | | | + +--------+ + + + | CULTURE, URINE | Routin | 05/21/2016 | | Results for this | | | e | 11:13 AM | | procedure are in the | | | | PST | | results section. | + +--------+ + + + | EXTERNAL LAB: | Routin | 05/20/2016 | | Results for this | | TACROLIMUS LEVEL, | e | 8:14 AM | | procedure are in the | | LC-MS/MS | | PST | | results section. | + +--------+ + + + | EXTERNAL LAB: CBC | Routin | 05/20/2016 | | Results for this | | | e | 8:14 AM | | procedure are in the | | | | PST | | results section. | + +--------+ + + + | URINALYSIS, | Routin | 05/20/2016 | | Results for this | | MICROSCOPIC ONLY | e | 8:14 AM | | procedure are in the | | | | PST | | results section. | + +--------+ + + + | MAGNESIUM | Routin | 05/20/2016 | | Results for this | | | e | 8:14 AM | | procedure are in the | | | | PST | | results section. | + +--------+ + + + | RENAL FUNCTION PANEL | Routin | 05/20/2016 | | Results for this | | | e | 8:14 AM | | procedure are in the | | | | PST | | results section. | + +--------+ + + + documented in this encounter Results Culture, Urine (05/21/2016 11:13 AM PST) + + | Specimen | [...] + + External Lab: Tacrolimus Level, LC-MS/MS (05/20/2016 8:14 AM PST) + +-------+ + + + | Component | Value | Ref Range | Performed | Pathologist | | | | | At | Signature | + +-------+ + + + | Tacrolimus | 4.1 | | EXTERNAL | | | Level [...] + +---------+ + + Urinalysis, Microscopic Only (05/20/2016 8:14 AM PST) + + + + + [...] - 1.030 | EXTERNAL | | | [place] | | | LAB | | + [...] + +---------+ + + External Lab: CBC (05/20/2016 8:14 AM PST) + + + + + + | Component | Value | Ref Range | Performed | Pathologist | | | | | At | Signature | + + + + + + | WBC | 4.6 | 4.5 - 11.0 10 | EXTERNAL | | | | | | LAB | | + + + + + + | RED CELL | 4.93 | 4.3 - 5.7 10 | EXTERNAL | | | COUNT | | | LAB | | + + + + + + | Hgb | 13.6 | 13.5 - 18.0 | EXTERNAL | | | | | g/dL | LAB | | + + + + + + | Hematocrit, | 43.8 | 41 - 50 % | EXTERNAL | | | POC | | | LAB | | + + + + + + | MCV | 88.8 | 81 - 99 fL | EXTERNAL | | | | | | LAB | | + + + + + + | MCH | 28 | 27 - 33 pg | EXTERNAL | | | | | | LAB | | + + + + + + | MCHC | 31 | 30 - 36 g/dL | EXTERNAL | | | | | | LAB | | + + + + + + | Platelet | 172 | 140 - 440 K/ L | [...] | | + +---------+ + + Magnesium (05/20/2016 8:14 AM PST) + +-------+ + + + [...] + +---------+ + + Renal Function Panel (05/20/2016 8:14 AM PST) + + + + + + | Component | Value | Ref Range | Performed | Pathologist | | | | | At | Signature | + + + + + + | Glucose, | 103 (A) | 70 - 100 mg/dL | EXTERNAL | | | Fasting | | | LAB | | + + + + + + | BUN | 17 | 6 - 23 mg/dL | EXTERNAL [...] + + + + | Phosphorus, | 2.5 | 2.5 - 5.0 | EXTERNAL | | | Inorganic | | | LAB | | + + + + + + | BUN/Creatin | 11.3 | 6.0 - 28.6 | EXTERNAL | | | ine Ratio | | | LAB | | + + + + + + | Calcium | 9.9 | 8.4 - 10.2 | EXTERNAL | [...]
--- OUTSIDE RECORDS SUMMARY | ~2019-05-09 | XMS | Encounter Summary ---
Demographics + + + | Address | [address] | | | [place] [address] | + + + | Home Phone [...] Team Providers + +------+ + | Care Benefits Technician Name | Role | Phone | + +------+ + PCP | Unavailable | + +------+ + Encounter Details +--------+ + + + + | Date | Type | Department | Care Team | Description | +--------+ + + + + | 10/26/ | Hospital | [facility] | Conversion | ESRD (end stage | | 2012 | Encounter | CENTER CV INTRA OP | Transaction, | renal disease) ([facility]) | | | | [address] | Provider Unknown | | | | | [place], [place] | [phone] | | | | | [address] | | | | | | [phone] | Alexx Gutierrez MD | | | | | | [address] [place] | | | | | | [address] [place], [place] | | | | | | [id number] | | | | | | | [...] Summaries by Zoya Mortensen MD at 10/27/11 6693 Author: Zoya Mortensen MD Service: (none) Author Type: Physician Filed: 10/27/11 7845 Date of Service: 10/27/111447 Status: Signed Quality Control Manager: Zoya Mortensen MD (Physician) [facility] Service: Interventional Radiology Post-Procedure Discharge Note DISCHARGE [...] Follow up: Alexx Gutierrez MD [address] [facility], [facility] [address] [facility] [address] Discharge Medications: Current Discharge Medication List CONTINUE these medications which have NOT CHANGED Details amlodipine (NORVASC) 10 MG tablet Take 10 mg by mouth daily. !! B Reyjcvy-M-Fiiff Acid (STERLING-BRITT PO) Take by mouth daily. !! B Rcmcxok-X-Tktcj Acid (STERLING-BRITT) TABS Take 1 tablet by [...] times daily with meals. !! vitamin B gtcdvim-C-nmnnx acid (SUPER B VITAMINS) 0.8 MG TABS [...] 2019 | Visit | | [address] [facility] | | | | | | [address] [place] | | | | | | [address] | | | | | | | [...] needle and | | | exchanged for 4-Tanzanian micropuncture sheath. Initial fistula | | | pressure was obtained and fistulogram obtained from the left cubital | | | fossa to the right atrium. Given the segmental, more than 80% | | | stenosis involving proximal left cephalic vein proximal to previously | | | placed metallic stent, I decided to perform angioplasty of the venous | | | lesion. 4-Tanzanian micropuncture sheath was exchanged for 6-Tanzanian | | | short sheath over a [...] Abhishek, Rad Conversion - 01/05/2019 9:02 AM [facility] | | FISTULAGRAM10/27/2011 2:14 PM [...] accessed using micropuncture needle and exchanged for 4-Tanzanian | | micropuncture sheath. Initial fistula pressure was obtained and fistulogram obtained | | from the left cubital fossa to the right atrium. Given the segmental, more than 80% | | stenosis involving proximal left cephalic vein proximal to previously placed metallic | | stent, I decided to perform angioplasty of the venous lesion. 4-Tanzanian micropuncture | | sheath was exchanged for 6-Tanzanian short sheath over a 0.035, angled Glidewire. [...] needle and | | | exchanged for 4-Tanzanian micropuncture sheath. Initial fistula | | | pressure was obtained and fistulogram obtained from the left cubital | | | fossa to the right atrium. Given the segmental, more than 80% | | | stenosis involving proximal left cephalic vein proximal to previously | | | placed metallic stent, I decided to perform angioplasty of the venous | | | lesion. 4-Tanzanian micropuncture sheath was exchanged for 6-Tanzanian | | | short sheath over a [...] accessed using micropuncture needle and exchanged for 4-Tanzanian | | micropuncture sheath. Initial fistula pressure was obtained and fistulogram obtained | | from the left cubital fossa to the right atrium. Given the segmental, more than 80% | | stenosis involving proximal left cephalic vein proximal to previously placed metallic | | stent, I decided to perform angioplasty of the venous lesion. 4-Tanzanian micropuncture | | sheath was exchanged for 6-Tanzanian short sheath over a 0.035, angled Glidewire. [...]
--- OUTSIDE RECORDS SUMMARY | ~2019-05-09 | XMS | Encounter Summary ---
Demographics + + + | Address | [address] | | | [place] [address] | + + + | Home Phone | | + + + | Preferred Language | Unknown | + + + | Marital Status | Unknown | + + + | Bahai Affiliation | Unknown | + + + | Race | Unknown | + + + | Ethnic Group | Unknown | + + + Author + + + | Author | [facility] | | | and [place] | + + + | Organization | [facility] | | | [...] Providers + +------+ + | Care Forest Aide Name | Role | Phone | + +------+ + | Oziel Michael MD | PCP | | + +------+ + Encounter Details +--------+ + + + + | Date | Type | Department | Care Team | Description | +--------+ + + + + | 12/28/ | Orders Only | [facility] | Alexx Gutierrez MD | Chronic kidney | | 2019 | | NEPHROLOGY [place] | [address] [place] | disease, stage III | | | | [address] [place] | [address] [place], [place] | (moderate) (HCC); | | | | [address] [place], [place] | [address] | History of kidney | | | | [address] | | transplant; Other | | | | [phone] | | disorders of | | | [...] Other | | | | | | intermediate frame tender (current) | | | | | | [...] 2020 | Visit | | [address] [facility] | | | | | | [address] [place] | | | | | | [address] | | | | | | | [...] | 08/22/2019 | | | | | intermediate frame tender (current) | | | | | | [...] Other | | | | | | intermediate frame tender (current) | | | | | | [...] Other | | | | | | fci (current) | | | | | | [...] Other | | | | | | intermediate frame tender (current) | | | | | | drug therapy | | | | | | Secondary | | | | | | hyperparathyroidism | | | | | | of renal origin | | | | | | (HCC) | | + +------+--------+ + + | Tacrolimus ([id number]) | Lab | Routin | Other intermediate frame tender | Expected: | | Trough | | e | (current) drug | 12/04/2018, Expires: | | | | | therapy History of | 12/04/2019 | | | | | kidney transplant | | + +------+--------+ + + | Renal Function Panel | Lab | Routin | Other intermediate frame tender | Expected: | | | | e [...] Magnesium | Lab | Routin | Other fci | Expected: | | | | e [...] with | Lab | Routin | Other intermediate frame tender | Expected: | | Differential | | [...] ALT | Lab | Routin | Other intermediate frame tender | Expected: | | | | e [...] AST | Lab | Routin | Other intermediate frame tender | Expected: | | | | e [...] Total | Lab | Routin | Other intermediate frame tender | Expected: | | | | e [...] ([id number]) | Lab | Routin | Other fci | Expected: | | Trough | | [...] with | Lab | Routin | Other fci | Expected: | | Microscopic if | [...] Protein/Creatinine | Lab | Routin | Other fci | Expected: | | Ratio, Urine | [...] essential hypertension | + + | Other intermediate frame tender (current) drug therapy | + + | Persistent proteinuria Proteinuria | + + | Secondary hyperparathyroidism of renal origin (HCC) Secondary hyperparathyroidism (of | | renal origin) | + + documented in this encounter"
--- OUTSIDE RECORDS SUMMARY | ~2019-05-09 | XMS | Encounter Summary ---
Demographics + + + | Address | [address] | | | [place] [address] | + + + | Home Phone | | + + + | Preferred Language | Unknown | + + + | Marital Status | Unknown | + + + | Oriental Orthodox [...] Team Providers + +------+ + | Care Landmen Name | Role | Phone | + +------+ + | Oziel Michael MD | PCP | | + +------+ + Encounter Details +--------+ + + + + | Date | Type | Department | Care Team | Description | +--------+ + + + + | 12/28/ | Orders Only | [facility] | Alexx Gutierrez MD | Chronic kidney | | 2019 | | NEPHROLOGY [place] | [address] [place] | disease, stage III | | | | [address] [place] | [address] [place], [place] | (moderate) (HCC); | | | | [address] [place], [place] | [address] | History of kidney | | | | [address] | | transplant; Other | | | | [phone] | | disorders of | | | [...] Other | | | | | | long term care pharmacist (current) | | | | | | [...] 2020 | Visit | | [address] [facility] | | | | | | [address] [place] | | | | | | [address] | | | | | | | [...] | 08/22/2019 | | | | | long term care pharmacist (current) | | | | | | [...] Other | | | | | | long term care pharmacist (current) | | | | | | [...] Other | | | | | | correction (current) | | | | | | [...] Other | | | | | | long term care pharmacist (current) | | | | | | drug therapy | | | | | | Secondary | | | | | | hyperparathyroidism | | | | | | of renal origin | | | | | | (HCC) | | + +------+--------+ + + | Tacrolimus ([id number]) | Lab | Routin | Other long term care pharmacist | Expected: | | Trough | | e | (current) drug | 12/04/2018, Expires: | | | | | therapy History of | 12/04/2019 | | | | | kidney transplant | | + +------+--------+ + + | Renal Function Panel | Lab | Routin | Other long term care pharmacist | Expected: | | | | e [...] Magnesium | Lab | Routin | Other correction | Expected: | | | | e [...] with | Lab | Routin | Other long term care pharmacist | Expected: | | Differential | | [...] ALT | Lab | Routin | Other long term care pharmacist | Expected: | | | | e [...] AST | Lab | Routin | Other long term care pharmacist | Expected: | | | | e [...] Total | Lab | Routin | Other long term care pharmacist | Expected: | | | | e [...] ([id number]) | Lab | Routin | Other correction | Expected: | | Trough | | [...] with | Lab | Routin | Other correction | Expected: | | Microscopic if | [...] Protein/Creatinine | Lab | Routin | Other correction | Expected: | | Ratio, Urine | [...] essential hypertension | + + | Other long term care pharmacist (current) drug therapy | + + | Persistent proteinuria Proteinuria | + + | Secondary hyperparathyroidism of renal origin (HCC) Secondary hyperparathyroidism (of | | renal origin) | + + documented in this encounter"
--- OUTSIDE RECORDS SUMMARY | ~2019-05-09 | XMS | Encounter Summary ---
Demographics + + + | Address | [address] | | | [place] [address] | + + + | Home Phone [...] + | Author | [facility] | + + + | Organization | [facility] | + + + | Address | Unknown | + + + | Phone | Unavailable | + + + Support + + +---------+ + | Name | Relationship | Address | Phone | + + +---------+ + | Olesya Lamb | ECON | Unknown | | + + +---------+ + Care Team Providers + +------+ + | Care Feather Trimmer Name | Role | Phone | + +------+ + | Oziel Michael MD | PCP | | + +------+ + Encounter Details +--------+ + + + + | Date | Type | Department | Care Team | Description | +--------+ + + + + | 08/21/ | Lab | LAB IMMUNOGENETIC | | | | 2019 | Requisition | AND TRANSPLANT LAB | | | | | | [address] | | | | | | [place], | | | | | | [place] [address] | | | +--------+ + + + [...] I & II ID | Routin | 08/18/2018 | | Results for this | | | e | 12:00 AM | | procedure are in the | | | | PDT | | results section. | + +--------+ + + + | LIT FLOW HLA II AB | Routin | 08/18/2018 | | | | AG ID, BLOOD | e | 12:00 AM | | | | | | PDT | | | + +--------+ + + + | LIT FLOW HLA I AB AG | Routin | 08/18/2018 | | Results for this | | ID, BLOOD | e | 12:00 AM | | procedure are in the | | | | PDT | | results section. | + +--------+ + + + documented in this encounter Results LIT FLOW HLA II AB AG ID, BLOOD (08/18/2018 12:00 AM PDT) + + | Specimen | + + | Blood - Blood | | (substance) | + + + + + + + | Performing | Address | City/State/Zipcode | Phone Number | | Organization | | | | + + + + + | [facility] - | [address] | [place] [address] | | | IMMUNOGENETICS/TRANS | [address] | | | | PLANT LABORATORY | | | | + + + + + LIT FLOW HLA I AB AG ID, BLOOD (08/18/2018 12:00 AM PDT) + + + + + [...] [facility] - | [address] | [place] [address] | | | IMMUNOGENETICS/TRANS | [address] | | | | PLANT LAB[facility]ORY | | | | + + + + + documented in this encounter Visit Diagnoses Not on filedocumented in this encounter"
--- OUTSIDE RECORDS SUMMARY | ~2019-05-09 | XMS | Encounter Summary ---
Demographics + + + | Address | [address] | | | [place] [address] | + + + | Home Phone [...] Providers + +------+ + | Care Data Warehousing Specialist Name | Role | Phone | + +------+ + | Oziel Michael MD | PCP | | + +------+ + Encounter Details +--------+ + + + + | Date | Type | Department | Care Team | Description | +--------+ + + + + | 10/11/ | Orders Only | [facility] | Adrian Shaffer MD | | | 2010 | | [facility] | [address] | | | | | CLINICAL LABORATORY | [place], [place] | | | | | [address] | [address] | | | | | [place], [place] | [phone] | | | | | [address] | | | | | | [phone] | | | +--------+ + + + [...] | | | | | | [address] [place] | | | | | | [address] | | | | | | | | +--------+---------+ + + + documented as of this encounter Procedures + +--------+ + + + | Procedure Name | Priori | Date/Time | Associated Diagnosis | Comments | | | ty | | | | + +--------+ + + + | CULTURE, WOUND, | Routin | 10/11/2010 | | Results for this | | SMEAR, W/ANAEROBE | e | 5:13 PM | | procedure are in the | | | | PDT | | results section. | + +--------+ + + + documented in this encounter Results Culture, Wound, Smear, w/Anaerobe (10/11/2010 5:13 PM PDT) + + | Specimen | + + | | + + + + + | Narrative | Performed At | + + + | Specimen Description RIGHT LEG SPECIAL | EXTERNAL LAB | | REQUESTS DO GRAM STAIN PLEASE GRAM STAIN | | | 1+ EPITHELIAL CELLS | | | NO WBC'S SEEN | | | NO ORGANISMS SEEN CULTURE | | | 1+ NORMAL SKIN FEDERICO ISOLATED | | | NO SUSCEPTIBILITY TO | | | FOLLOW REPORT STATUS 10/13/2010 FINAL | | + + + + +---------+ + + | Performing | Address | City/State/Zipcode | Phone Number | | Organization | | | | + +---------+ + + | EXTERNAL LAB | | | | + +---------+ + + documented in this encounter Visit Diagnoses Not on filedocumented in this encounter"
--- OUTSIDE RECORDS SUMMARY | ~2019-05-09 | XMS | Encounter Summary ---
Demographics + + + | Address | [address] | | | [place] [address] | + + + | Home Phone | | + + + | Preferred Language | Unknown | + + + | Marital Status | Single | + + + | Mormon Affiliation | Unknown | + + + | Race | Black or | + + + | Ethnic Group | Not or | + + + Author + + + | Author | [facility] | + + + | Organization | [facility] | + + + | Address | Unknown | + + + | Phone | Unavailable | + + + Support + + +---------+ + | Name | Relationship | Address | Phone | + + +---------+ + | Olesya Lamb | ECON | Unknown | | + + +---------+ + Care Team Providers + +------+ + | Care Electronic Scale Assembler And Tester Name | Role | Phone | [...] | | | | | [address] [place], | | | | | | [place] [address] | | | +--------+ + + + [...] [facility] - | [address] | [place] [address] | | | IMMUNOGENETICS/TRANS | [address] | | | | PLANT LAB[facility]ATORY | | | | + + + + + documented in this encounter Visit Diagnoses Not on filedocumented in this encounter"
--- OUTSIDE RECORDS SUMMARY | ~2019-05-09 | XMS | Encounter Summary ---
Demographics + + + | Address | [address] | | | [place] [address] | + + + | Home Phone [...] + + + | Author | [facility] [employer] [facility] | + + + [...] Team Providers + +------+ + | Care Lift Driver Name | Role | Phone | [...] | | | | | [address] [place], | | | | | | [place] [address] | | | +--------+ + + + [...] + + | [facility] - | [address] | [place] [address] | | | IMMUNOGENETICS/TRANS | [address] [...] [facility] - | [address], | [place] [address] | | | IMMUNOGENETICS/TRANS | [address] [...] + + | [facility] - | [address] | [place] [address] | | | IMMUNOGENETICS/TRANS | [address] | | | | PLANT LABORATORY | | | | + + + + + documented in this encounter Visit Diagnoses Not on filedocumented in this encounter"
--- OUTSIDE RECORDS SUMMARY | ~2019-05-09 | XMS | Encounter Summary ---
Demographics + + + | Address | [address] | | | [place] [address] | + + + | Home Phone [...] Team Providers + +------+ + | Care Battery Tester Name | Role | Phone | + +------+ + | Oziel Michael MD | PCP | | + +------+ + Encounter Details +--------+ + + + + | Date | Type | Department | Care Team | Description | +--------+ + + + + | 03/22/ | Orders Only | [facility] | Alexx Gutierrez MD | | | 2016 | | NEPRHOLOGY [place] | [address] | | | | | [address] | [address] [place], [place] | | | | | [address] [place], [place] | [address] | | | | | [address] | | | | | | [phone] | | | +--------+ + + + [...] 2020 | Visit | | [address] [facility] [place] | | | | | | [address] [place] | | | | | | [address] | | | | | | | [...] | | | LAB | | | [facility] | | | | | + + [...]
--- OUTSIDE RECORDS SUMMARY | ~2019-05-09 | XMS | Clinical Summary ---
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 | 08/20/2018 [...] - 02/05/19) | | | | | Inspector Health Care Facilities | | +--------+ + + + + | 02/25/ | Office | Nephrology | Alexx Gutierrez MD | Kidney replaced by | | 2018 | Visit | | | transplant (Primary | | | | | | Dx); | | | | | | Immunosuppression | | | | | | ([facility]); 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 | | | | | [...] III | | | | | | ([facility]); | | | | | | Immunosuppressive | | | | | | management encounter | | | | | | following kidney | | | | | | transplant; | | | | | | Secondary | | | | | | hyperparathyroidism | | | | | | ([facility]); Class 2 | | | | | [...] | | | | | | (HCC); 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 | | | | | | 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; | | | | | | Immunosuppression | | | | | | ([facility]); Kidney | | | | | | replaced by | | | | | | transplant | +--------+ + + + + | 02/22/ | Orders Only | Nephrology | Radha Szymanski | | | 2018 | | | V, Medical | | | | | | Inspector Health Care Facilities | | +--------+ + + + + | 02/22/ | Telephone | Nephrology | Radha Szymanski | Other (APPT/LABS | | 2018 | | | V, Medical | REMINDER) | | | | | Inspector Health Care Facilities | | +--------+ + + + + [...] | Visit | | [address] [facility] | | | | | | [address] [place] | | | | | | [address] | | | | | | | [...] | DIGNA WArturo. | | 06/10/ | [id number] | | Rings Lined [id number] 40cm | | Arm | DIGNA & | | 2018 | [id number] | | Ring - | | | ASSOC. | | | | | [id number]: Qty: | | | MEDICAL PRD | | | /[id number] | | 1 on 11/05/2013 by Leonardo Dickey | | | | | | [id number] | | MD Kimberley | | | | | | L | | | | | | | | /[id number] | | | | | | | [...] +--------+ +---------+--------+ | MEDICARE | MEDICA | [id number] | 01/14/20 | [phone] | | Medica | | | RE | | 11-Pre | 5 | | re | | | PART A | | sent | | | | | | AND B | | | | | | + +--------+ +--------+ +---------+--------+ | MEDICARE | MEDICA | [id number] | 01/14/20 | [phone] | | Medica | | | RE | | 11-Pre | 5 | | re | | | PART A | | sent | | | | | | AND B | | | | | | + +--------+ +--------+ +---------+--------+ | [employer] | MODA | [id number] | 02/25/ | [phone] | | Medica [...] Self | [birth year] | | [address] | | | al/Fam | | 1961 | [phone] | [place] | | | alexsandra | | | 2 ([place]) | [address] | + +--------+ +--------+ + + | Nik Ma | Third | Self | [birth year] | | [address] | | | Democrat | | 1961 | [phone] | [place] | | | Liabil | | | 2 ([place]) | [address] | | | ity | | | | | + +--------+ +--------+ + + Advance Directives + + + + + | Type | Date Recorded | Patient | Explanation | | | | Resource Coordinator | | + + + + + | Power of | | | | | Dissolver Operator | | | | + + + + + | Advance | | | | | Directive | | | | + + + + +
--- OUTSIDE RECORDS SUMMARY | ~2019-05-09 | XMS | Encounter Summary ---
Demographics + + + | Address | [address] | | | [place] [address] | + + + | Home Phone [...] Providers + +------+ + | Care Color Receiver Name | Role | Phone | + +------+ + | Oziel Michael MD | PCP | | + +------+ + Encounter Details +--------+ + + + + | Date | Type | Department | Care Team | Description | +--------+ + + + + | 10/11/ | Orders Only | [facility] | Adrian Shaffer MD | | | 2010 | | [facility] | [address] | | | | | CLINICAL LABORATORY | [place], [place] | | | | | [address] | [address] | | | | | [place], [place] | [phone] | | | | | [address] | | | | | | [phone] | | | +--------+ + + + [...] 2019 | Visit | | [address] [facility] | | | | | | [address] [place] | | | | | | [address] | | | | | | | [...] | Testing performed | | | at [facility];[address] [place] [address];[place] [address] SPECIAL REQUESTS | | | RAC | | | Testing performed at [facility];[address] [place], [place] [address] [place] [address] | | | CULTURE NO GROWTH IN 5 DAYS. | | | Testing | | | performed at [facility];[address] [place] [address] REPORT STATUS | | | 10/17/2010 FINAL [...]
--- OUTSIDE RECORDS SUMMARY | ~2019-05-09 | XMS | Encounter Summary ---
Demographics + + + | Address | [address] | | | [place] [address] | + + + | Home Phone [...] | [facility] [employer] [facility] | + + + [...] + +------+ + | Care Director Of Security Name | Role | Phone | + [...] | | | | | Mirlande Nunes [place], | | | | | | [place] [address] | | | +--------+ + + + [...] [facility] - | [address] | [place] [address] | | | IMMUNOGENETICS/TRANS | [address] | | | | PLANT LABORATORY | | | | + + + + + documented in this encounter Visit Diagnoses Not on filedocumented in this encounter"
--- OUTSIDE RECORDS SUMMARY | ~2019-05-09 | XMS | Encounter Summary ---
Demographics + + + | Address | [address] | | | [place] [address] | + + + | Home Phone [...] + + | Author | [facility] [employer] [facility] | [...] Team Providers + +------+ + | Care Pan Greaser Name | Role | Phone | + [...] | | | | | Mirlande Nunes [place], | | | | | | [place] [address] | | | +--------+ + + + [...] + + + | [facility] - | [address] | [place] [address] | | | IMMUNOGENETICS/TRANS | [address] | | | | PLANT LABORATORY | | | | + + + + + documented in this encounter Visit Diagnoses Not on filedocumented in this encounter"
--- OUTSIDE RECORDS SUMMARY | ~2019-05-09 | XMS | Encounter Summary ---
Demographics + + + | Address | [address] | | | [place] [address] | + + + | Home Phone | | + + + | Preferred Language | Unknown | + + + | Marital Status | Unknown | + + + | Druze Affiliation | Unknown | + + + | Race | Unknown | + + + | Ethnic Group | Unknown | + + + Author + + + | Author | [facility] | | | and [place] | + + + | Organization | [facility] | | [...] Team Providers + +------+ + | Care Stranner Name | Role | Phone | + +------+ + PCP | Unavailable | + +------+ + Encounter Details +--------+ + + + + | Date | Type | Department | Care Team | Description | +--------+ + + + + | 09/04/ | Orders Only | [facility] | Alexx Gutierrez MD | | | 2018 | | NEPHROLOGY [place] | [address] [place] | | | | | [address] [place] | [address] [place], [place] | | | | | [address] [place], [place] | [address] | | | | | [address] | | | | | | [phone] | | | +--------+ + + + [...] 2019 | Visit | | [address] [facility] | | | | | | [address] [facility] | | | | | | [address] | | | | | | | [...]
--- OUTSIDE RECORDS SUMMARY | ~2019-05-09 | XMS | Encounter Summary ---
Demographics + + + | Address | [address] | | | [place] [address] | + + + | Home Phone [...] Team Providers + +------+ + | Care Worm Picker Name | Role | Phone | + +------+ + | Oziel Michael MD | PCP | | + +------+ + Encounter Details +--------+ + + + + | Date | Type | Department | Care Team | Description | +--------+ + + + + | 08/07/ | Orders Only | [facility] | Conversion | | | 2018 | | NEPHROLOGY [place] | Transaction, | | | | | [address] | Provider Unknown | | | | | [address] [place], [place] | | | | | | [address] | (Fax) | | | | | [phone] | | | +--------+ + + + [...] 2019 | Visit | | [address] [facility] | | | | | | 160 [place], [place] | | | | | | [address] | | | | | | | [...]
--- OUTSIDE RECORDS SUMMARY | ~2019-05-09 | XMS | Encounter Summary ---
Demographics + + + | Address | [address] | | | [place] [address] | + + + | Home Phone [...] Providers + +------+ + | Care Tower Foreman Name | Role | Phone | + +------+ + | Oziel Michael MD | PCP | | + +------+ + Encounter Details +--------+ + + + + | Date | Type | Department | Care Team | Description | +--------+ + + + + | 11/06/ | Orders Only | [facility] | Alexx Gutierrez MD | | | 2019 | | NEPRHOLOGY [place] | [address] | | | | | [address] | [address] [place], [place] | | | | | [address] [place], [place] | [address] | | | | | [address] | | | | | | [phone] | | | +--------+ + + + [...] 2020 | Visit | | [address] [facility] | | | | | | [address] [place] | | | | | | [address] | | | | | | | | +--------+---------+ + + + documented as of this encounter Visit Diagnoses Not on filedocumented in this encounter"
--- OUTSIDE RECORDS SUMMARY | ~2019-05-09 | XMS | Encounter Summary ---
Demographics + + + | Address | [address] | | | [place] [address] | + + + | Home Phone [...] Team Providers + +------+ + | Care Chief Investigator Name | Role | Phone | + +------+ + | Oziel Michael MD | PCP | | + +------+ + Encounter Details +--------+ + + + + | Date | Type | Department | Care Team | Description | +--------+ + + + + | 10/10/ | Orders Only | [facility] | Alexx Gutierrez MD | | | 2017 | | NEPHROLOGY [place] | [address] [place] | | | | | [address] [place] | [address] [place], [place] | | | | | [address] [place], [place] | [address] | | | | | [address] | | | | | | [phone] | | | +--------+ + + + [...] Visit | | [address] [facility] | | | | | | [address] [place], [place] | | | | | | [address] | | | | | | | [...]
--- OUTSIDE RECORDS SUMMARY | ~2019-05-09 | XMS | Encounter Summary ---
Demographics + + + | Address | [address] | | | [place] [address] | + + + | Home Phone | | + + + | Preferred Language | Unknown | + + + | Marital Status | Unknown | + + + | Bahai Affiliation | Unknown | + + + | Race | Unknown | + + + | Ethnic Group | Unknown | + + + Author + + + | Author | [facility] | | | and [place] | + + + | Organization | [facility] | [...] Team Providers + +------+ + | Care Hr Receptionist Name | Role | Phone | + +------+ + | Oziel Michael MD | PCP | | + +------+ + Encounter Details +--------+ + + + + | Date | Type | Department | Care Team | Description | +--------+ + + + + | 10/11/ | Orders Only | [facility] | Adrian Shaffer MD | | | 2010 | | [facility] | [address] | | | | | CLINICAL LABORATORY | [place], [place] | | | | | [address] | [address] | | | | | [place], [place] | [phone] | | | | | [address] | | | | | | [phone] | | | +--------+ + + + [...] | | | | | | [address] [place], [place] | | | | | | [address] | | | | | | | [...] EXTERNAL LAB | | Testing performed at [facility];[address] | | | [address];[place] [address] CULTURE | | | NO HERPES SIMPLEX VIRUS ISOLATED | | | Testing performed at [facility], [address] [place] [address] | | | [place] [address] REPORT STATUS | | | 10/13/2010 FINAL [...]
--- OUTSIDE RECORDS SUMMARY | ~2019-05-09 | XMS | Encounter Summary ---
Demographics + + + | Address | [address] | | | [place] [address] | + + + | Home Phone | | + + + | Preferred Language | Unknown | + + + | Marital Status | Unknown | + + + | Cheondoism Affiliation | Unknown | + + + | Race | Unknown | + + + | Ethnic Group | Unknown | + + + Author + + + | Author | [facility] | | | and [place] | + + + | Organization | [facility] | | | [...] Team Providers + +------+ + | Care Dough Molder Hand Name | Role | Phone | + +------+ + PCP | Unavailable | + +------+ + Encounter Details +--------+ + + + + | Date | Type | Department | Care Team | Description | +--------+ + + + + | 11/30/ | Hospital | [facility] | Conversion | ESRD (end stage | | 2012 | Encounter | CENTER CV INTRA OP | Transaction, | renal disease) ([facility]) | | | | [address] | Provider Unknown | | | | | [place], [place] | [phone] | | | | | [address] | | | | | | [phone] | Ziyad Russ, | | | | | | [address] | | | | | | [address] [place], [place] | | | | | | [address] | | | | | | | [...] 12/01/111613 Date of Service: 12/01/111611 Status: Signed Real Estate Inspector: Alice Conrad RN (Registered Nurse) Pt tolerated [...] [place] | | | | | | [address] | | | | | | | [...] conscious sedation and | | | independent shelter supervision performed throughout the | | | [...] needle and | | | exchanged for 4-Uzbek micropuncture sheath. Initial fistula | | | pressure was obtained and fistulogram obtained from the left cubital | | | fossa to the right atrium. Given the multiple tandem stenosis in | | | proximal and mid left cephalic vein in including in-stent restenosis, | | | I decided to perform angioplasty of the venous lesions. 4-Uzbek | | | micropuncture sheath was exchanged for 6-Uzbek short sheath over a | | | [...] Abhishek, Rad Conversion - 01/05/2019 9:02 AM [facility] | | FISTULAGRAM12/01/2011 1:45 PM HISTORY:52 [...] adequate conscious sedation and independent | | shelter supervision performed throughout the procedure. PROCEDURE: Informed [...] accessed using micropuncture needle and exchanged for 4-Uzbek | | micropuncture sheath. Initial fistula pressure was obtained and fistulogram obtained | | from the left cubital fossa to the right atrium. Given the multiple tandem stenosis in | | proximal and mid left cephalic vein in including in-stent restenosis, I decided to | | perform angioplasty of the venous lesions. 4-Uzbek micropuncture sheath was exchanged | | for 6-Uzbek short sheath over a 0.035, angled Glidewire. [...] conscious sedation and | | | independent shelter supervision performed throughout the | | | [...] needle and | | | exchanged for 4-Uzbek micropuncture sheath. Initial fistula | | | pressure was obtained and fistulogram obtained from the left cubital | | | fossa to the right atrium. Given the multiple tandem stenosis in | | | proximal and mid left cephalic vein in including in-stent restenosis, | | | I decided to perform angioplasty of the venous lesions. 4-Uzbek | | | micropuncture sheath was exchanged for 6-Uzbek short sheath over a | | | [...] adequate conscious sedation and independent | | shelter supervision performed throughout the procedure. PROCEDURE: Informed [...] accessed using micropuncture needle and exchanged for 4-Uzbek | | micropuncture sheath. Initial fistula pressure was obtained and fistulogram obtained | | from the left cubital fossa to the right atrium. Given the multiple tandem stenosis in | | proximal and mid left cephalic vein in including in-stent restenosis, I decided to | | perform angioplasty of the venous lesions. 4-Uzbek micropuncture sheath was exchanged | | for 6-Uzbek short sheath over a 0.035, angled Glidewire. [...]
--- OUTSIDE RECORDS SUMMARY | ~2019-05-09 | XMS | Encounter Summary ---
Demographics + + + | Address | [address] | | | [place] [address] | + + + | Home Phone | | + + + | Preferred Language | Unknown | + + + | Marital Status | Unknown | + + + | Christian Affiliation [...] Team Providers + +------+ + | Care Naval Marine Engineer Name | Role | Phone | + +------+ + | Oziel Michael MD | PCP | | + +------+ + Encounter Details +--------+ + + + + | Date | Type | Department | Care Team | Description | +--------+ + + + + | 06/13/ | Orders Only | [facility] | Conversion | | | 2018 | | NEPRHOLOGY [place] | Transaction, | | | | | [address] | Provider Unknown | | | | | [address] [place], [place] | [phone] | | | | | [address] | | | | | | [phone] | | | +--------+ + + + [...] | | | | | | [address] [place] | | | | | | [address] | | | | | | | [...]
--- OUTSIDE RECORDS SUMMARY | ~2019-05-09 | XMS | Encounter Summary ---
Demographics + + + | Address | [address] | | | [place] [address] | + + + | Home Phone [...] Team Providers + +------+ + | Care Heading Saw Operator Name | Role | Phone | + +------+ + PCP | Unavailable | + +------+ + Encounter Details +--------+ + + + + | Date | Type | Department | Care Team | Description | +--------+ + + + + | 08/07/ | Orders Only | [facility] | Alexx Gutierrez MD | | | 2018 | | NEPHROLOGY [place] | [address] [place] | | | | | [address] [place] | [address] [place], [place] | | | | | [address] [place], [place] | [address] | | | | | [address] | | | | | | [phone] | | | +--------+ + + + [...] | | [address] [facility] | | | | | | [address] [facility] | | | | | | [address] | | | | | | | [...] | | | LAB | | | ROMAN[place] | | | | | + + [...]
--- OUTSIDE RECORDS SUMMARY | ~2019-05-09 | XMS | Encounter Summary ---
Demographics + + + | Address | [address] | | | [place] [address] | + + + | Home Phone [...] + + | Author | [facility] [employer] [facility] | [...] Team Providers + +------+ + | Care Kiln Placer Name | Role | Phone | + [...] | | | | | [place] N[place], | | | | | | [place] [address] | | | +--------+ + + + [...] + + | [facility] - | [address] | [place] [address] | | | IMMUNOGENETICS/TRANS | [address] [...] [facility] - | [address], | [place] [address] | | | IMMUNOGENETICS/TRANS | [address] [...] + + | [facility] - | [address] | [place] [address] | | | IMMUNOGENETICS/TRANS | [address] | | | | PLANT LABORATORY | | | | + + + + + documented in this encounter Visit Diagnoses Not on filedocumented in this encounter"
--- OUTSIDE RECORDS SUMMARY | ~2019-05-09 | XMS | Encounter Summary ---
Demographics + + + | Address | [address] | | | [place] [address] | + + + | Home Phone [...] + | Author | [facility] [facility] | + + + | Organization | [facility] | + + + | Address | Unknown | + + + | Phone | Unavailable | + + + Support + + +---------+ + | Name | Relationship | Address | Phone | + + +---------+ + | Olesya Lamb | ECON | Unknown | | + + +---------+ + Care Team Providers + +------+ + | Care Sustainable Design Consultant Name | Role | Phone | [...] | | | | | [place], | | | | | | [place] [address] | | | +--------+ + + + [...] [facility] - | [address] | [place] [address] | | | IMMUNOGENETICS/TRANS | [address] | | | | PLANT LABORATORY | | | | + + + + + documented in this encounter Visit Diagnoses Not on filedocumented in this encounter"
--- OUTSIDE RECORDS SUMMARY | ~2019-05-09 | XMS | Encounter Summary ---
Demographics + + + | Address | [address] | | | [place] [address] | + + + | Home Phone [...] + | Author | [facility] | + + + [...] Team Providers + +------+ + | Care Spar Machine Operator Helper Name | Role | Phone [...] | | | | | | [place] [address] | | | +--------+ + + + [...] [facility] - | [address] | [place] [address] | | | IMMUNOGENETICS/TRANS | [address] | | | | PLANT LABORATORY | | | | + + + + + documented in this encounter Visit Diagnoses Not on filedocumented in this encounter"
--- OUTSIDE RECORDS SUMMARY | ~2019-05-09 | XMS | Encounter Summary ---
Demographics + + + | Address | [address] | | | [place] [address] | + + + | Home Phone [...] Providers + +------+ + | Care Agricultural Specialist Name | Role | Phone | [...] | | [address] | [address] [facility] [place] | Fitting and | | | | [place], [place] | [address] | adjustment of | | | | [address] | | vascular catheter | | | | [phone] | | | +--------+ + + + [...] 2019 | Visit | | [address] [facility] | | | | | | [address] [facility] | | | | | | [address] | | | | | | | [...] [facility] | | | [facility] [address] | | | Patient Name: NIK MA Date of : 1960 Medical | | | Record: [id number] Account: [id number] | | | Exam Date/Time: 01/04/2011 11:00 [...] met this patient in | | | 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 I had a discussion with [...]
--- OUTSIDE RECORDS SUMMARY | ~2019-05-09 | XMS | Encounter Summary ---
Demographics + + + | Address | [address] | | | [place] [address] | + + + | Home Phone [...] Team Providers + +------+ + | Care Rx Specialist Name | Role | Phone | + +------+ + PCP | Unavailable | + +------+ + Encounter Details +--------+ + + + + | Date | Type | Department | Care Team | Description | +--------+ + + + + | 09/04/ | Orders Only | [facility] | Conversion | | | 2018 | | NEPHROLOGY [place] | Transaction, | | | | | [address] | Provider Unknown | | | | | [address] [place], [place] | | | | | | [address] | (Fax) | | | | | [phone] | | | +--------+ + + + [...] Visit | | [address] [facility] | | | | | | [address] [place], [place] | | | | | | [address] | | | | | | | [...] - 1.030 | EXTERNAL | | | [place] | | | LAB | | + [...] | | | LAB | | | [place] | | | | | + + [...]
--- OUTSIDE RECORDS SUMMARY | ~2019-05-09 | XMS | Encounter Summary ---
Demographics + + + | Address | [address] | | | [place] [address] | + + + | Home Phone [...] + + | Author | [facility] | + + + | Organization | [facility] | + + + | Address | Unknown | + + + | Phone | Unavailable | + + + Support + + +---------+ + | Name | Relationship | Address | Phone | + + +---------+ + | Olesya Lamb | ECON | Unknown | | + + +---------+ + Care Team Providers + +------+ + | Care Marketing Coordinator Name | Role | Phone | [...] | | | | [place], | | | | | | [place] [address] | | | +--------+ + + + [...] + + + | [facility] - | [address] | [place] [address] | | | IMMUNOGENETICS/TRANS | [address] | | | | PLANT LABORATORY | | | | + + + + + documented in this encounter Visit Diagnoses Not on filedocumented in this encounter"
--- OUTSIDE RECORDS SUMMARY | ~2019-05-09 | XMS | Encounter Summary ---
Demographics + + + | Address | [address] | | | [place] [address] | + + + | Home Phone | | + + + | Preferred Language | Unknown | + + + | Marital Status | Unknown | + + + | Samaritan Affiliation [...] Team Providers + +------+ + | Care Storm Sash Maker Name | Role | Phone | + +------+ + | Oziel Michael MD | PCP | | + +------+ + Encounter Details +--------+ + + + + | Date | Type | Department | Care Team | Description | +--------+ + + + + | 08/22/ | Orders Only | [facility] | Alexx Gutierrez MD | | | 2019 | | NEPRHOLOGY [place] | [address] | | | | | [address] | [address] [place], [place] | | | | | [address] [place], [place] | [address] | | | | | [address] | | | | | | [phone] | | | +--------+ + + + [...] | Visit | | [address] [facility] | | | | | | [address] [place] | | | | | | [address] | | | | | | | | +--------+---------+ + + + documented as of this encounter Visit Diagnoses Not on filedocumented in this encounter"
--- OUTSIDE RECORDS SUMMARY | ~2019-05-09 | XMS | Encounter Summary ---
Demographics + + + | Address | [address] | | | [place] [address] | + + + | Home Phone [...] + | Author | [facility] | + + + | Organization | [facility] | + + + | Address | Unknown | + + + | Phone | Unavailable | + + + Support + + +---------+ + | Name | Relationship | Address | Phone | + + +---------+ + | Olesya Lamb | ECON | Unknown | | + + +---------+ + Care Team Providers + +------+ + | Care Disease Case Manager Name | Role | Phone | [...] | | | | | [place]e [place], | | | | | | [place] [address] | | | +--------+ + + + [...] + + + | [facility] - | [address] | [place] [address] | | | IMMUNOGENETICS/TRANS | [address] | | | | PLANT LABORATORY | | | | + + + + + documented in this encounter Visit Diagnoses Not on filedocumented in this encounter"
--- OUTSIDE RECORDS SUMMARY | ~2019-05-09 | XMS | Encounter Summary ---
Demographics + + + | Address | [address] | | | [place] [address] | + + + | Home Phone | | + + + | Preferred Language | Unknown | + + + | Marital Status | Unknown | + + + | Catholic Affiliation | Unknown | + + + | Race | Unknown | + + + | Ethnic Group | Unknown | + + + Author + + + | Author | [facility] | | | and [place] | + + + | Organization | [facility] [...] Team Providers + +------+ + | Care Agency Sales Representative Name | Role | Phone | + +------+ + | Oziel Michael MD | PCP | | + +------+ + Encounter Details +--------+ + + + + | Date | Type | Department | Care Team | Description | +--------+ + + + + | 10/13/ | Orders Only | [facility] | Alexx Gutierrez MD | | | 2017 | | NEPHROLOGY [place] | [address] [place] | | | | | [address] [place] | [address] [place], [place] | | | | | [address] [place], [place] | [address] | | | | | [address] | | | | | | [phone] | | | +--------+ + + + [...] Visit | | [address] [facility] | | | | | | [address] [place], [place] | | | | | | [address] | | | | | | | [...]
--- OUTSIDE RECORDS SUMMARY | ~2019-05-09 | XMS | Encounter Summary ---
Demographics + + + | Address | [address] | | | [place] [address] | + + + | Home Phone [...] | Author | [facility] | [...] + +------+ + | Care Director Of Mobile Marketing Name | Role | Phone | [...] + + | 02/18/ | Telephone | [facility] | Alexx Gutierrez MD | Other (Appointment | | 2019 | | NEPHROLOGY [place] | [address] [place] | reminder call) | | | | [address] [place] | [address] [place], [place] | | | | | [address] [place], [place] | [address] | | | | | [address] | | | | | | [phone] | | | +--------+ + + + [...] 2020 | Visit | | [address] [facility] | | | | | | [address] [place] | | | | | | [address] | | | | | | | [...]
--- OUTSIDE RECORDS SUMMARY | ~2019-05-09 | XMS | Encounter Summary ---
Demographics + + + | Address | [address] | | | [place] [address] | + + + | Home Phone [...] | [facility] | + + [...] | | | | Mirlande Nunes [place], | | | | | | [place] [address] | | | +--------+ + + + [...] + + + | [facility] - | [address] | [place] [address] | | | IMMUNOGENETICS/TRANS | [address] | | | | PLANT LABORATORY | | | | + + + + + documented in this encounter Visit Diagnoses Not on filedocumented in this encounter"
--- OUTSIDE RECORDS SUMMARY | ~2019-05-09 | XMS | Encounter Summary ---
Demographics + + + | Address | [address] | | | [place] [address] | + + + | Home Phone [...] Team Providers + +------+ + | Care Division Operations Manager Name | Role | Phone | [...] | | | [address] [place], [place] | [address] | | | | | [address] | | | | | | [phone] | | | +--------+ + + + [...] 2019 | Visit | | [address] [facility] | | | | | | [address] [facility] | | | | | | [address] | | | | | | | [...]
--- OUTSIDE RECORDS SUMMARY | ~2019-05-09 | XMS | Encounter Summary ---
Demographics + + + | Address | [address] | | | [place] [address] | + + + | Home Phone [...] Providers + +------+ + | Care Material Combiner Name | Role | Phone | + [...] + + | 03/01/ | Documentati | [facility] | Radha Szymanski | Labs Only ([facility] | | 2019 | on | NEPRHOLOGY [place] | V, Medical | - 02/05/19) | | | | [address] | Truck Driver | | | | | [address] [place], [place] | | | | | | [address] | | | | | | [phone] | | | +--------+ + + + [...] 2019 | Visit | | [address] [facility] [place] | | | | | | [address] [place], [place] | | | | | | [address] | | | | | | | [...] | [address] | [place] [address] | [phone] | | [facility] | | | | + + + + + | REFERENCE LAB | [address] | [place] [address] | [phone] | | [facility] | | | | [...] | [address] | [place] [address] | [phone] | | [facility] | | | | + + + + + | REFERENCE LAB | [address] | [place] [address] | [phone] | | [facility] | | | | [...] | REFERENCE LAB | [address] [facility] | [place] [address] | [phone] | | [facility] | | | | + + + + + | REFERENCE LAB | [address] [facility] | [place] [address] | [phone] | | [facility] | | | | [...] | [address] | [place] [address] | [phone] | | [facility] | | | | + + + + + | REFERENCE LAB | [address] | [place] [address] | [phone] | | [facility] | | | | [...] + + | REFERENCE LAB | [address] | [place] [address] | [phone] | | [facility] | | | | + + + + + | REFERENCE LAB | [address] | [place] [address] | [phone] | | [facility] | | | | [...] | [address] | [place] [address] | [phone] | | [facility] | | | | + + + + + | REFERENCE LAB | [address] | [place] [address] | [phone] | | [facility] | | | | [...] | REFERENCE LAB | [address] [facility] | [place] [address] | [phone] | | [facility] | | | | + + + + + | REFERENCE LAB | [address] [facility] | [place] [address] | [phone] | | [facility] | | | | [...] - 1.030 | REFERENCE | | | [place], | | | LAB | | | [...] + + + | REFERENCE LAB | [facility] | [place] [address] | [phone] | | [facility] | | | | + + + + + | REFERENCE LAB | [address] [facility] | [place] [address] | [phone] | | [facility] | | | | [...] + | REFERENCE LAB | [address] | [place] [address] | [phone] | | [facility] | | | | + + + + + | REFERENCE LAB | [facility] | [place] [address] | [phone] | | [facility] | | | | + + + + + documented in this encounter Visit Diagnoses Not on filedocumented in this encounter"
--- OUTSIDE RECORDS SUMMARY | ~2019-05-09 | XMS | Encounter Summary ---
Demographics + + + | Address | [address] | | | [place] [address] | + + + | Home Phone | | + + + | Preferred Language | Unknown | + + + | Marital Status | Single | + + + | Mormonism Affiliation | Unknown | + + + | Race | Black or | + + + | Ethnic Group | Not or | + + + Author + + + | Author | [facility] | + + + [...] Team Providers + +------+ + | Care Sales Outfitter Name | Role | Phone | + [...] | | | | | [place], | | | | | | [place] [address] | | | +--------+ + + + [...] + + + | [facility] - | [address] | [place] [address] | | | IMMUNOGENETICS/TRANS | [address] | | | | PLANT LABORATORY | | | | + + + + + documented in this encounter Visit Diagnoses Not on filedocumented in this encounter"
--- OUTSIDE RECORDS SUMMARY | ~2019-05-09 | XMS | Encounter Summary ---
Demographics + + + | Address | [address] | | | [place] [address] | + + + | Home Phone | | + + + | Preferred Language | Unknown | + + + | Marital Status | Unknown | + + + | Holiness Affiliation | Unknown | + + + | Race | Unknown | + + + | Ethnic Group | Unknown | + + + Author + + + | Author | [facility] | | | and [place] | + + + | Organization | [facility] | | | [...] Team Providers + +------+ + | Care Mba Internship Name | Role | Phone | + +------+ + PCP | Unavailable | + +------+ + Encounter Details +--------+ + + + + | Date | Type | Department | Care Team | Description | +--------+ + + + + | 11/30/ | Orders Only | [facility] | Alexx Gutierrez MD | | | 2018 | | NEPHROLOGY [place] | [address] [place] | | | | | [address] [place] | [address] [place], [place] | | | | | [address] [place], [place] | [address] | | | | | [address] | | | | | | [phone] | | | +--------+ + + + [...] 2019 | Visit | | [address] [facility] | | | | | | [address] [facility] [place] | | | | | | [address] | | | | | | | [...]
--- OUTSIDE RECORDS SUMMARY | ~2019-05-09 | XMS | Encounter Summary ---
Demographics + + + | Address | [address] | | | [place] [address] | + + + | Home Phone [...] Author + + + | Author | [facility] | + + + | Organization | [facility] | + + + | Address | Unknown | + + + | Phone | Unavailable | + + + Support + + +---------+ + | Name | Relationship | Address | Phone | + + +---------+ + | Olesya Lamb | ECON | Unknown | | + + +---------+ + Care Team Providers + +------+ + | Care Account Services Coordinator Name | Role | Phone [...] | | | | | [place], | | | | | | [place] [address] | | | +--------+ + + + [...] [facility] - | [address] | [place] [address] | | | IMMUNOGENETICS/TRANS | [address] | | | | PLANT LABORATORY | | | | + + + + + documented in this encounter Visit Diagnoses Not on filedocumented in this encounter"
--- OUTSIDE RECORDS SUMMARY | ~2019-05-09 | XMS | Encounter Summary ---
Demographics + + + | Address | [address] | | | [place] [address] | + + + | Home Phone [...] Team Providers + +------+ + | Care Cinder Pit Crane Operator Name | Role | Phone | [...] | | | | [place] | [phone] | | | | | [address] | | | | | | [phone] | | | +--------+ + + + [...] 2020 | Visit | | [address] [facility] | | | | | | [address] [place] | | | | | | [address] | | | | | | | | +--------+---------+ + + + documented as of this encounter Visit Diagnoses Not on filedocumented in this encounter"
--- OUTSIDE RECORDS SUMMARY | ~2019-05-09 | XMS | Encounter Summary ---
Demographics + + + | Address | [address] | | | [place] [address] | + + + | Home Phone [...] Team Providers + +------+ + | Care Deburring Machine Operator Name | Role | Phone | + +------+ + PCP | Unavailable | + +------+ + Encounter Details +--------+ + + + + | Date | Type | Department | Care Team | Description | +--------+ + + + + | 03/15/ | Hospital | [facility] | Conversion | ESRD (end stage | | 2012 | Encounter | CENTER CV INTRA OP | Transaction, | renal disease) ([facility]) | | | | [address] | Provider Unknown | | | | | [place], [place] | [phone] | | | | | [address] | | | | | | [phone] | Ziyad Russ, | | | | | | [address] | | | | | | [place], [place] | | | | | | [address] | | | | | | | [...] Progress Notes by Kely Wilkerson at 03/15/12 7832 Author: Kely Wilkerson Service: (none) Author Type: Registered Nurse Filed: 03/15/12 4432 Date of Service: 03/15/12 4524 Status: Signed Voting Machine Mechanic: Kely Wilkerson Pt escorted out ambulatory with family driving pt home. av onver svitlana Transaction, Provider Unknown - 03/15/2012 12:59 PM PDT Progress Notes by Kely Wilkerson at 03/15/12 6760 Author: Kely Wilkerson Service: (none) Author Type: Registered Nurse Filed: [id number] Date of Service: 03/15/121258 Status: Signed Voting Machine Mechanic: Kely Wilkerson Dc instructions given pt states [...] | | | | | | [address] [place], [place] | | | | | | [address] | | | | | | | [...] needle and | | | exchanged for 4-Belarusian micropuncture sheath. Initial fistula | | | pressure was obtained and fistulogram obtained from the left cubital | | | fossa to the right atrium. Given the multiple stenosis in the | | | proximal and mid left cephalic vein including in-stent restenosis, I | | | decided to perform angioplasty of the venous lesions. 4-Belarusian | | | micropuncture sheath was exchanged for 6-Belarusian short sheath over a | | | [...] AM PDT [facility] | | [id number]/1/2012 11:38 AM HISTORY:51 years. Male. With chronic [...] micropuncture needle | | and exchanged for 4-Belarusian micropuncture sheath. Initial fistula pressure was obtained | | and fistulogram obtained from the left cubital fossa to the right atrium. Given the | | multiple stenosis in the proximal and mid left cephalic vein including in-stent | | restenosis, I decided to perform angioplasty of the venous lesions. 4-Belarusian | | micropuncture sheath was exchanged for 6-Belarusian short sheath over a 0.035, angled | [...] needle and | | | exchanged for 4-Belarusian micropuncture sheath. Initial fistula | | | pressure was obtained and fistulogram obtained from the left cubital | | | fossa to the right atrium. Given the multiple stenosis in the | | | proximal and mid left cephalic vein including in-stent restenosis, I | | | decided to perform angioplasty of the venous lesions. 4-Belarusian | | | micropuncture sheath was exchanged for 6-Belarusian short sheath over a | | | [...] AM PDT [facility] | | [id number]/1/2012 11:38 AM HISTORY:51 years. Male. With chronic [...] micropuncture needle | | and exchanged for 4-Belarusian micropuncture sheath. Initial fistula pressure was obtained | | and fistulogram obtained from the left cubital fossa to the right atrium. Given the | | multiple stenosis in the proximal and mid left cephalic vein including in-stent | | restenosis, I decided to perform angioplasty of the venous lesions. 4-Belarusian | | micropuncture sheath was exchanged for 6-Belarusian short sheath over a 0.035, angled | [...]
--- OUTSIDE RECORDS SUMMARY | ~2019-05-09 | XMS | Encounter Summary ---
Demographics + + + | Address | [address] | | | [place] [address] | + + + | Home Phone [...] + + | Author | [facility] | | | and [place] | + + + | Organization | [facility] | | | [...] Team Providers + +------+ + | Care Microbiological Laboratory Technician Name | Role | Phone | [...] | | | | [place] | [phone] | | | | | [address] | | | | | | [phone] | | | +--------+ + + + [...] [place] | | | | | | [address] | | | | | | | | +--------+---------+ + + + documented as of this encounter Visit Diagnoses Not on filedocumented in this encounter"
--- OUTSIDE RECORDS SUMMARY | ~2019-05-09 | XMS | Encounter Summary ---
Demographics + + + | Address | [address] | | | [place] [address] | + + + | Home Phone [...] Team Providers + +------+ + | Care Aerodynamics Engineer Name | Role | Phone | + +------+ + PCP | Unavailable | + +------+ + Encounter Details +--------+ + + + + | Date | Type | Department | Care Team | Description | +--------+ + + + + | 09/04/ | Orders Only | [facility] | Conversion | | | 2018 | | NEPHROLOGY [place] | Transaction, | | | | | [address] [place] [place] | Provider Unknown | | | | | [address] [place], [place] | | | | | | [address] | (Fax) | | | | | [phone] | | | +--------+ + + + [...] 2019 | Visit | | [address] [facility] | | | | | | [address] [place], [place] | | | | | | [address] | | | | | | | [...]
--- OUTSIDE RECORDS SUMMARY | ~2019-05-09 | XMS | Encounter Summary ---
Demographics + + + | Address | [address] | | | [place] [address] | + + + | Home Phone | | + + + | Preferred Language | Unknown | + + + | Marital Status | Single | + + + | Protestant Affiliation | Unknown | + + + | Race | Black or | + + + | Ethnic Group | Not or | + + + Author + + + | Author | [facility] | + + + | Organization | [facility] | + + + | Address | Unknown | + + + | Phone | Unavailable | + + + Support + + +---------+ + | Name | Relationship | Address | Phone | + + +---------+ + | Olesya Lamb | ECON | Unknown | | + + +---------+ + Care Team Providers + +------+ + | Care Signal Mechanic Name | Role | Phone | [...] | | | | | [place], | | | | | | [place] [address] | | | +--------+ + + + [...] + + + | [facility] - | [address] | [place] [address] | | | IMMUNOGENETICS/TRANS | [address] | | | | PLANT LABORATORY | | | | + + + + + documented in this encounter Visit Diagnoses Not on filedocumented in this encounter"
--- OUTSIDE RECORDS SUMMARY | ~2019-05-09 | XMS | Encounter Summary ---
Demographics + + + | Address | [address] | | | [place] [address] | + + + | Home Phone [...] Team Providers + +------+ + | Care Automotive Leasing Sales Representative Name | Role | Phone | + +------+ + | Oziel Michael MD | PCP | | + +------+ + Encounter Details +--------+ + + + + | Date | Type | Department | Care Team | Description | +--------+ + + + + | 10/10/ | Orders Only | [facility] | Dav Andre, | | | [address] | | MEDICAL CENTER | MD [address] | | | | | CLINICAL LABORATORY | [place] [address] | | | | | [address] | [phone] | | | | | [place], [place] | | | | | | [address] | | | | | | [phone] | | | +--------+ + + + [...] 2019 | Visit | | [address] [facility] [place] | | | | | | [address] [place] | | | | | | [address] | | | | | | | [...] EXTERNAL LAB | | Testing performed at [address];[place] [address] MRSA PCR | | | NEGATIVE Testing performed at | | | [address];[place] [address] | | + + + + +---------+ + + | Performing | Address | City/State/Zipcode | Phone Number | | Organization | | | | + +---------+ + + | EXTERNAL LAB | | | | + +---------+ + + documented in this encounter Visit Diagnoses Not on filedocumented in this encounter"
--- OUTSIDE RECORDS SUMMARY | ~2019-05-09 | XMS | Encounter Summary ---
Demographics + + + | Address | [address] | | | [place] [address] | + + + | Home Phone [...] Team Providers + +------+ + | Care Diesel Dinkey Operator Name | Role | Phone | + +------+ + | Oziel Michael MD | PCP | | + +------+ + Encounter Details +--------+ + + + + | Date | Type | Department | Care Team | Description | +--------+ + + + + | 10/12/ | Orders Only | [facility] | Emmett Solitario MD | | | [address] | | [facility] | [address] [facility] | | | | | CLINICAL LABORATORY | [place] [address] | | | | | [address] | [phone] | | | | | [place], [place] | | | | | | [address] | | | | | | [phone] | | | +--------+ + + + [...] | | | | | | [address] [place], [place] | | | | | | [address] | | | | | | | [...] EXTERNAL LAB | | Testing performed at [address];[place] [address] MRSA PCR | | | NEGATIVE Testing performed at | | | [address];[place] [address] | | + + + + +---------+ + + | Performing | Address | City/State/Zipcode | Phone Number | | Organization | | | | + +---------+ + + | EXTERNAL LAB | | | | + +---------+ + + documented in this encounter Visit Diagnoses Not on filedocumented in this encounter"
--- OUTSIDE RECORDS SUMMARY | ~2019-05-09 | XMS | Encounter Summary ---
Demographics + + + | Address | [address] | | | [place] [address] | + + + | Home Phone [...] Team Providers + +------+ + | Care Embossing Clerk Name | Role | Phone | + +------+ + PCP | Unavailable | + +------+ + Encounter Details +--------+ + + + + | Date | Type | Department | Care Team | Description | +--------+ + + + + | 03/15/ | Hospital | [facility] | Conversion | ESRD (end stage | | 2012 | Encounter | CENTER CV INTRA OP | Transaction, | renal disease) ([facility]) | | | | [address] | Provider Unknown | | | | | [place], [place] | [phone] | | | | | [address] | | | | | | [phone] | Ziyad Russ, | | | | | | [address] | | | | | | [place], [place] | | | | | | [address] | | | | | | | [...] Progress Notes by Kely Wilkerson at 03/15/12 3795 Author: Kely Wilkerson Service: (none) Author Type: Registered Nurse Filed: 03/15/12 9517 Date of Service: 03/15/12 5771 Status: Signed Industrial Production Manager: Kely Wilkerson Pt escorted out ambulatory with family driving pt home. av onver svitlana Transaction, Provider Unknown - 03/15/2012 12:59 PM PDT Progress Notes by Kely Wilkerson at 03/15/12 2816 Author: Kely Wilkerson Service: (none) Author Type: Registered Nurse Filed: [id number] Date of Service: 03/15/121258 Status: Signed Industrial Production Manager: Kely Wilkerson Dc instructions given pt states [...] 2019 | Visit | | [address] [facility] | | | | | | [address] [place], [place] | | | | | | [address] | | | | | | | [...] to perform angioplasty of the venous lesions. 4-Bolivian | | | micropuncture sheath was exchanged for 6-Bolivian short sheath over a | | | [...] AM PDT [facility] | | [id number]/1/2012 11:38 AM HISTORY:51 years. Male. With chronic [...] adequate conscious sedation and | | independent [place] [facility] supervision performed throughout the procedure. PROCEDURE: | [...] micropuncture needle | | and exchanged for 4-Bolivian micropuncture sheath. Initial fistula pressure was obtained | | and fistulogram obtained from the left cubital fossa to the right atrium. Given the | | multiple stenosis in the proximal and mid left cephalic vein including in-stent | | restenosis, I decided to perform angioplasty of the venous lesions. 4-Bolivian | | micropuncture sheath was exchanged for 6-Bolivian short sheath over a 0.035, angled | [...] to perform angioplasty of the venous lesions. 4-Bolivian | | | micropuncture sheath was exchanged for 6-Bolivian short sheath over a | | | [...] AM PDT [facility] | | [id number]/1/2012 11:38 AM HISTORY:51 years. Male. With chronic [...] adequate conscious sedation and | | independent [place] [facility] supervision performed throughout the procedure. PROCEDURE: | [...] micropuncture needle | | and exchanged for 4-Bolivian micropuncture sheath. Initial fistula pressure was obtained | | and fistulogram obtained from the left cubital fossa to the right atrium. Given the | | multiple stenosis in the proximal and mid left cephalic vein including in-stent | | restenosis, I decided to perform angioplasty of the venous lesions. 4-Bolivian | | micropuncture sheath was exchanged for 6-Bolivian short sheath over a 0.035, angled | [...]
--- OUTSIDE RECORDS SUMMARY | ~2019-05-09 | XMS | Encounter Summary ---
Demographics + + + | Address | [address] | | | [place] [address] | + + + | Home Phone [...] + | Author | [facility] | + + + [...] Team Providers + +------+ + | Care Chip Crusher Operator Name | Role | Phone | [...] | | | | | [place], | | | | | | [place] [address] | | | +--------+ + + + [...] [facility] - | [address] | [place] [address] | | | IMMUNOGENETICS/TRANS | [address] [...] [facility] - | [address] | [place] [address] | | | IMMUNOGENETICS/TRANS | [address] | | | | PLANT LABORATORY | | | | + + + + + documented in this encounter Visit Diagnoses Not on filedocumented in this encounter"
--- OUTSIDE RECORDS SUMMARY | ~2019-05-09 | XMS | Encounter Summary ---
Demographics + + + | Address | [address] | | | [place] [address] | + + + | Home Phone | | + + + | Preferred Language | Unknown | + + + | Marital Status | Unknown | + + + | Cheondoism Affiliation | Unknown | + + + | Race | Unknown | + + + | Ethnic Group | Unknown | + + + Author + + + | Author | [facility] | | | and [place] | + + + | Organization | [facility] | | [...] Team Providers + +------+ + | Care Bobbin Painter Name | Role | Phone | + +------+ + PCP | Unavailable | + +------+ + Encounter Details +--------+ + + + + | Date | Type | Department | Care Team | Description | +--------+ + + + + | 10/31/ | Hospital | [facility] | Conversion | | | 2014 | Encounter | CENTER [facility] | Transaction, | | | | | CLINIC [address] | Provider Unknown | | | | | [place], [place] | | | | | | [address] | (Fax) | | | | | [phone] | | | +--------+ + + + [...] 2020 | Visit | | [address] [facility] | | | | | | [address] [facility] | | | | | | [address] | | | | | | | [...] | | EXTERNAL | | | | [facility];[address] | | LAB | | | | [address];[place] [address] | | | | + + + + + + | Antibody | NEGATIVE | | EXTERNAL | | | Screen | | | LAB | | + + + + + + | Antibody | Testing performed at | | EXTERNAL | | | Screen | [facility];[address] | | LAB | | | | [address];[place] [address] | | | | + + + [...] | | | Patient | performed at [facility];[address] | | LAB | | | | [address];[place], [place] | | | | | | [address] | | | | + + + [...] | | | | | performed at [facility] | | | | | | [facility];[place], [place] | | | | | | [address] | | | | + + + [...] EXTERNAL | | | | performed at [facility], [address] | | LAB | | | | [address], | | | | | | [place] [address] | | | | + + + + + + | RED CELL | 3.94 (L)Comment: Testing | 4.20 - 5.70 | EXTERNAL | | | COUNT | performed at [facility], [address] | M/uL | LAB | | | | [address], | | | | | | [place] [address] | | | | + + + + + + | Hgb | 12.1 (L)Comment: Testing | 13.2 - 17.0 | EXTERNAL | | | | performed at [facility], [address] | g/dL | LAB | | | | [address], | | | | | | [place] [address] | | | | + + + + + + | Hematocrit, | 36.4 (L)Comment: Testing | 39.0 - 50.0 % | EXTERNAL | | | POC | performed at [facility], [address] | | LAB | | | | [address], | | | | | | [place] [address] | | | | + + + + + + | MCV | 92.6Comment: Testing | 80.0 - 100.0 fl | EXTERNAL | | | | performed at [facility], [address] | | LAB | | | | [address], | | | | | | [place] [address] | | | | + + + + + + | MCH | 30.7Comment: Testing | 27.0 - 34.0 pg | EXTERNAL | | | | performed at [facility], [address] | | LAB | | | | [address], | | | | | | [place] [address] | | | | + + + + + + | MCHC | 33.2Comment: Testing | 32.0 - 35.5 | EXTERNAL | | | | performed at [facility], [address] | g/dL | LAB | | | | [address], | | | | | | [place] [address] | | | | + + + + + + | RDW-CV | 50.3Comment: Testing | 37 - 53 fl | EXTERNAL | | | | performed at [facility], [address] | | LAB | | | | [address], | | | | | | [place] [address] | | | | + + + + + + | Platelet | 215Comment: Testing | 150 - 400 K/uL | EXTERNAL | | | Count | performed at [facility], [address] | | LAB | | | Plasma | [address], | | | | | | [place] [address] | | | | + + + + + + | MPV | 9.2Comment: Testing | fl | EXTERNAL | | | | performed at [facility], [address] | | LAB | | | | [address], | | | | | | [place] [address] | | | | + + + + + + | Differentia | AUTOMATEDComment: | | EXTERNAL | | | l Type | Testing performed at | | LAB | | | | [facility], [address] | | | | | | [place] | | | | | | [address] | | | | + + + + + + | % Segmented | 48.5Comment: Testing | % | EXTERNAL | | | | performed at [facility], [address] | | LAB | | | Neutrophils | [address], | | | | | | [place] [address] | | | | + + + + + + | % | 37.6Comment: Testing | % | EXTERNAL | | | Lymphocytes | performed at [facility], [address] | | LAB | | | | [address], | | | | | | [place] [address] | | | | + + + + + + | % Monocytes | 9.2Comment: Testing | % | EXTERNAL | | | | performed at [facility], [address] | | LAB | | | | [address], | | | | | | [place] [address] | | | | + + + + + + | % | 3.6Comment: Testing | % | EXTERNAL | | | Eosinophils | performed at [facility], [address] | | LAB | | | | [address], | | | | | | [place] [address] | | | | + + + + + + | % Basophils | 1.1Comment: Testing | % | EXTERNAL | | | | performed at [facility], [address] | | LAB | | | | [address], | | | | | | [place] [address] | | | | + + + + + + | Absolute | 1.6 (L)Comment: Testing | 1.9 - 7.4 K/uL | EXTERNAL | | | Segmented | performed at [facility], [address] | | LAB | | | Neutrophils | [address], | | | | | | [place] [address] | | | | + + + + + + | Absolute | 1.2Comment: Testing | 1.0 - 3.9 K/uL | EXTERNAL | | | Lymphocytes | performed at [facility], [address] | | LAB | | | | [address], | | | | | | [place] [address] | | | | + + + + + + | Absolute | 0.3Comment: Testing | 0 - 0.8 K/uL | EXTERNAL | | | Monocytes | performed at [facility], [address] | | LAB | | | | [address], | | | | | | [place] [address] | | | | + + + + + + | Absolute | 0.1Comment: Testing | 0 - 0.5 K/uL | EXTERNAL | | | Eosinophils | performed at [facility], [address] | | LAB | | | | [address], | | | | | | [place] [address] | | | | + + + + + + | Absolute | 0.0Comment: Testing | 0 - 0.1 K/uL | EXTERNAL | | | Basophils | performed at [facility], [address] | | LAB | | | | [address], | | | | | | [place] [address] | | | | + + + [...] | | | | | [place] [address] | | | | + + + + + + | K | 4.1Comment: Testing | 3.5 - 4.9 | EXTERNAL | | | | performed at [facility], [address] | mmol/L | LAB | | | | [address], | | | | | | [place] [address] | | | | + + + + + + | Cl | 94 (L)Comment: Testing | 99 - 109 mmol/L | EXTERNAL | | | | performed at [facility], [address] | | LAB | | | | [address], | | | | | | [place] [address] | | | | + + + + + + | CO2 | 34 (H)Comment: Testing | 23 - 32 mmol/L | EXTERNAL | | | | performed at [facility], [address] | | LAB | | | | [address], | | | | | | [place] [address] | | | | + + + + + + | Anion Gap | 14Comment: Testing | 5 - 20 mmol/L | EXTERNAL | | | | performed at [facility], [address] | | LAB | | | | [address], | | | | | | [place] [address] | | | | + + + + + + | Glucose, | 132 (H)Comment: Testing | 65 - 99 mg/dL | EXTERNAL | | | Fasting | performed at [facility], [address] | | LAB | | | | [address], | | | | | | [place] [address] | | | | + + + + + + | BUN | 24Comment: Testing | 8 - 25 mg/dL | EXTERNAL | | | | performed at [facility], [address] | | LAB | | | | [address], | | | | | | [place] [address] | | | | + + + + + + | Creatinine | 9.74 (H)Comment: Testing | 0.70 - 1.30 | EXTERNAL | | | | performed at [facility], [address] | mg/dL | LAB | | | | [address], | | | | | | [place] [address] | | | | + + + + + + | BUN/Creatin | 2Comment: Testing | | EXTERNAL | | | ine Ratio | performed at [facility], [address] | | LAB | | | | [address], | | | | | | [place] [address] | | | | + + + + + + | Calcium | 10.0Comment: Testing | 8.5 - 10.2 | EXTERNAL | | | | performed at [facility], [address] | mg/dL | LAB | | | | [address], | | | | | | [place] [address] | | | | + + + [...] | | | | | [place] [address] | | | | + + + [...] EXTERNAL LAB | | Testing performed at [facility];[address] [place] [address];[place] [address] MRSA PCR | | | NEGATIVE Testing performed at | | | [facility];[address] [place] [address];[place] [address] | | + + + + +---------+ [...] + + | Historically converted procedure from [facility] Epic environment | EXTERNAL LAB | [...]
--- OUTSIDE RECORDS SUMMARY | ~2019-05-09 | XMS | Encounter Summary ---
Demographics + + + | Address | [address] | | | [place] [address] | + + + | Home Phone [...] + | Author | [facility] [employer] [facility] | + + + | Organization | [facility] | + + + | Address | Unknown | + + + | Phone | Unavailable | + + + Support + + +---------+ + | Name | Relationship | Address | Phone | + + +---------+ + | Olesya Lamb | ECON | Unknown | | + + +---------+ + Care Team Providers + +------+ + | Care Associate Professor Of Management Name | Role | Phone | + [...] | | | | | [place], | | | | | | [place] [address] | | | +--------+ + + + [...] + + + | [facility] - | [address] | [place] [address] | | | IMMUNOGENETICS/TRANS | [address] | | | | PLANT LABORATORY | | | | + + + + + documented in this encounter Visit Diagnoses Not on filedocumented in this encounter"
--- OUTSIDE RECORDS SUMMARY | ~2019-05-09 | XMS | Encounter Summary ---
Demographics + + + | Address | [address] | | | [place] [address] | + + + | Home Phone | | + + + | Preferred Language | Unknown | + + + | Marital Status | Unknown | + + + | Baptism Affiliation [...] Providers + +------+ + | Care Assistant County Attorney Name | Role | Phone | + +------+ + | Oziel Michael MD | PCP | | + +------+ + Encounter Details +--------+ + + + + | Date | Type | Department | Care Team | Description | +--------+ + + + + | 06/27/ | Orders Only | [facility] | Alexx Gutierrez MD | | | 2019 | | NEPRHOLOGY [place] | [address] | | | | | [address] | [address] [place], [place] | | | | | 101 [place], [place] | [address] | | | | | [address] | | | | | | [phone] | | | +--------+ + + + [...] 2020 | Visit | | [address] [facility] | | | | | | [address] [place] | | | | | | [address] | | | | | | | | +--------+---------+ + + + documented as of this encounter Visit Diagnoses Not on filedocumented in this encounter"
--- OUTSIDE RECORDS SUMMARY | ~2019-05-09 | XMS | Encounter Summary ---
Demographics + + + | Address | [address] | | | [place] [address] | + + + | Home Phone [...] + + | Author | [facility] [employer] [facility] | + + + [...] Team Providers + +------+ + | Care Bag Making Machine Operator Name | Role | Phone [...] | | | | | [place], | | | | | | [place] [address] | | | +--------+ + + + [...] + + + | [facility] - | [address] | [place] [address] | | | IMMUNOGENETICS/TRANS | [address] | | | | PLANT LABORATORY | | | | + + + + + documented in this encounter Visit Diagnoses Not on filedocumented in this encounter"
--- OUTSIDE RECORDS SUMMARY | ~2019-05-09 | XMS | Encounter Summary ---
Demographics + + + | Address | [address] | | | [place] [address] | + + + | Home Phone [...] Providers + +------+ + | Care Air Quality Instrument Specialist Name | Role | Phone | + +------+ + | Oziel Michael MD | PCP | | + +------+ + Encounter Details +--------+ + + + + | Date | Type | Department | Care Team | Description | +--------+ + + + + | 05/08/ | Orders Only | [facility] | Alexx Gutierrez MD | | | 2017 | | NEPRHOLOGY [place] | [address] | | | | | [address] | [address] [place], [place] | | | | | 101 [place], [place] | [address] | | | | | [address] | | | | | | [phone] | | | +--------+ + + + [...] 2020 | Visit | | [address] [facility] | | | | | | [address] [place] | | | | | | [address] | | | | | | | | +--------+---------+ + + + documented as of this encounter Visit Diagnoses Not on filedocumented in this encounter"
--- OUTSIDE RECORDS SUMMARY | ~2019-05-09 | XMS | Encounter Summary ---
Demographics + + + | Address | [address] | | | [place] [address] | + + + | Home Phone [...] Team Providers + +------+ + | Care News Broadcaster Name | Role | Phone | + +------+ + PCP | Unavailable | + +------+ + Encounter Details +--------+ + + + + | Date | Type | Department | Care Team | Description | +--------+ + + + + | 03/05/ | Hospital | [facility] | Conversion | Venous pressure | | 2013 | Encounter | CENTER CV INTRA OP | Transaction, | increased | | | | [address] | Provider Unknown | | | | | [place], [place] | [phone] | | | | | [address] | | | | | | [phone] | lAexx Gutierrez MD | | | | | | [address] [place] | | | | | | [address] [place], [place] | | | | | | [address] | | | | | | | [...] 2020 | Visit | | [address] [facility] | | | | | | [address] [place] | | | | | | [address] | | | | | | | [...] | | adequate conscious sedation and independent chcf | | | supervision performed throughout the [...] | using micropuncture needle and exchanged for 4-Turkmen micropuncture | | | sheath. Initial fistula pressure was obtained and fistulogram | | | obtained from the right cubital fossa to the right atrium. Given | | | the severe in-stent restenosis in mid left cephalic vein, I decided to | | | perform angioplasty of the venous lesion. 4-Turkmen micropuncture | | | sheath was exchanged for 6-Turkmen short sheath over a 0.035, angled | [...] Rad Conversion - 01/04/2019 11:57 PM PDT [facility] | | [id number]/22/2013 3:33 PM HISTORY:52 years. Male. With chronic [...] | | adequate conscious sedation and independent chcf supervision performed | | throughout the procedure. [...] | | micropuncture needle and exchanged for 4-Turkmen micropuncture sheath. Initial fistula | | pressure was obtained and fistulogram obtained from the right cubital fossa to the | | right atrium. Given the severe in-stent restenosis in mid left cephalic vein, I decided | | to perform angioplasty of the venous lesion. 4-Turkmen micropuncture sheath was | | exchanged for 6-Turkmen short sheath over a 0.035, angled Glidewire. [...] | | adequate conscious sedation and independent chcf | | | supervision performed throughout the [...] | using micropuncture needle and exchanged for 4-Turkmen micropuncture | | | sheath. Initial fistula pressure was obtained and fistulogram | | | obtained from the right cubital fossa to the right atrium. Given | | | the severe in-stent restenosis in mid left cephalic vein, I decided to | | | perform angioplasty of the venous lesion. 4-Turkmen micropuncture | | | sheath was exchanged for 6-Turkmen short sheath over a 0.035, angled | [...] Conversion - 01/04/2019 11:57 PM PDT [facility] | | [id number]/22/2013 3:33 PM HISTORY:52 years. Male. With chronic [...] | | adequate conscious sedation and independent chcf supervision performed | | throughout the procedure. [...] | | micropuncture needle and exchanged for 4-Turkmen micropuncture sheath. Initial fistula | | pressure was obtained and fistulogram obtained from the right cubital fossa to the | | right atrium. Given the severe in-stent restenosis in mid left cephalic vein, I decided | | to perform angioplasty of the venous lesion. 4-Turkmen micropuncture sheath was | | exchanged for 6-Turkmen short sheath over a 0.035, angled Glidewire. [...]
--- OUTSIDE RECORDS SUMMARY | ~2019-05-09 | XMS | Encounter Summary ---
Demographics + + + | Address | [address] | | | [place] [address] | + + + | Home Phone [...] + + + | Author | [facility] | | | and [place] | + + + | Organization | [facility] | | [...] Team Providers + +------+ + | Care Publishing Agent Name | Role | Phone | + +------+ + | Oziel Michael MD | PCP | | + +------+ + Encounter Details +--------+ + + + + | Date | Type | Department | Care Team | Description | +--------+ + + + + | 02/22/ | Orders Only | [facility] | Radha Szymanski | | | 2019 | | NEPRHOLOGY [place] | V, Medical | | | | | [address] | Ceramic Designer | | | | | [address] [place], [place] | | | | | | [address] | | | | | | [phone] | | | +--------+ + + + [...] 2020 | Visit | | [address] [facility] | | | | | | [address] [place] | | | | | | [address] | | | | | | | | +--------+---------+ + + + documented as of this encounter Visit Diagnoses Not on filedocumented in this encounter"
--- OUTSIDE RECORDS SUMMARY | ~2019-05-09 | XMS | Encounter Summary ---
Demographics + + + | Address | [address] | | | [place] [address] | + + + | Home Phone [...] + | Author | [facility] | + + [...] Team Providers + +------+ + | Care Music Promoter Name | Role | Phone | + [...] | | | | | [place], | | | | | | [place] [address] | | | +--------+ + + + [...] [facility] - | [address] | [place] [address] | | | IMMUNOGENETICS/TRANS | [address] | | | | PLANT LABORATORY | | | | + + + + + documented in this encounter Visit Diagnoses Not on filedocumented in this encounter"
--- OUTSIDE RECORDS SUMMARY | ~2019-05-09 | XMS | Encounter Summary ---
Demographics + + + | Address | [address] | | | [place] [address] | + + + | Home Phone [...] Providers + +------+ + | Care Labor Specialist Name | Role | Phone | + +------+ + | Oziel Michael MD | PCP | | + +------+ + Encounter Details +--------+ + + + + | Date | Type | Department | Care Team | Description | +--------+ + + + + | 05/08/ | Orders Only | [facility] | Alexx Gutierrez MD | | | 2017 | | NEPRHOLOGY [place] | [address] | | | | | [address] | [address] [place], [place] | | | | | 101 [place], [place] | [address] | | | | | [address] | | | | | | [phone] | | | +--------+ + + + [...] [place] | | | | | | [address] | | | | | | | | +--------+---------+ + + + documented as of this encounter Visit Diagnoses Not on filedocumented in this encounter"
--- OUTSIDE RECORDS SUMMARY | ~2019-05-09 | XMS | Encounter Summary ---
Demographics + + + | Address | [address] | | | [place] [address] | + + + | Home Phone [...] + | Author | [facility] [employer] [facility] | + + + | [...] Team Providers + +------+ + | Care Criminal Records Technician Name | Role | Phone | [...] | | | | | [place], | | | | | | [place] [address] | | | +--------+ + + + [...] + + | [facility] - | [address] | [place] [address] | | | IMMUNOGENETICS/TRANS | [address] [...] [facility] - | [address] | [place] [address] | | | IMMUNOGENETICS/TRANS | [address] | | | | PLANT LABORATORY | | | | + + + + + documented in this encounter Visit Diagnoses Not on filedocumented in this encounter"
--- OUTSIDE RECORDS SUMMARY | ~2019-05-09 | XMS | Encounter Summary ---
Demographics + + + | Address | [address] | | | [place] [address] | + + + | Home Phone [...] Team Providers + +------+ + | Care Leach Cell Operator Name | Role | Phone | + +------+ + | Oziel Michael MD | PCP | | + +------+ + Encounter Details +--------+ + + + + | Date | Type | Department | Care Team | Description | +--------+ + + + + | 01/04/ | Orders Only | [facility] | Alexx Gutierrez MD | | | 2017 | | NEPHROLOGY [place] | [address] [place] | | | | | [address] [place] | [address] [place], [place] | | | | | 160 [place], [place] | [address] | | | | | [address] | | | | | | [phone] | | | +--------+ + + + [...] 2019 | Visit | | [address] [facility] | | | | | | 160 [place], [place] | | | | | | [address] | | | | | | | [...]
--- OUTSIDE RECORDS SUMMARY | ~2019-05-09 | XMS | Encounter Summary ---
Demographics + + + | Address | [address] | | | [place] [address] | + + + | Home Phone [...] Author + + + | Author | [facility] | + + [...] Team Providers + +------+ + | Care Topper Packer Name | Role | Phone | + [...] | | | | | [place], | | | | | | [place] [address] | | | +--------+ + + + [...] | [facility] - | [address] | [place] [address] | | | IMMUNOGENETICS/TRANS | [address] [...] [facility] - | [address] | [place] [address] | | | IMMUNOGENETICS/TRANS | [address] | | | | PLANT LABORATORY | | | | + + + + + documented in this encounter Visit Diagnoses + + | Diagnosis | + + | End stage renal disease (HCC) End stage renal disease | + + documented in this encounter"
--- OUTSIDE RECORDS SUMMARY | ~2019-05-09 | XMS | Encounter Summary ---
Demographics + + + | Address | [address] | | | [place] [address] | + + + | Home Phone [...] Providers + +------+ + | Care Sheet Metal Worker Maintenance Name | Role | Phone | + [...] + + | 01/31/ | Refill | [facility] | Alexx Gutierrez MD | Medication Refill | | 2019 | | NEPRHOLOGY [place] | [address] | | | | | [address] | [address] [place], [place] | | | | | 101 [place], [place] | [address] | | | | | [address] | | | | | | [phone] | | | +--------+--------+ + + + [...] | Visit | | [address] [facility] | | | | | | [address] [place], [place] | | | | | | [address] | | | | | | | | +--------+---------+ + + + documented as of this encounter Visit Diagnoses + + | Diagnosis | + + | Kidney replaced by transplant - Primary | + + | Persistent proteinuria Proteinuria | + + | alf (current) use of 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 | + + documented in this encounter"
--- OUTSIDE RECORDS SUMMARY | ~2019-05-09 | XMS | Encounter Summary ---
Demographics + + + | Address | [address] | | | [place] [address] | + + + | Home Phone | | + + + | Preferred Language | Unknown | + + + | Marital Status | Single | + + + | Sabianist Affiliation | Unknown | + + + | Race | Black or | + + + | Ethnic Group | Not or | + + + Author + + + | Author | [facility] | + + [...] Team Providers + +------+ + | Care Bed And Breakfast Cook Name | Role | Phone | + [...] | | | | | [place], | | | | | | [place] [address] | | | +--------+ + + + [...] | [facility] - | [address] | [place] [address] | | | IMMUNOGENETICS/TRANS | [address] [...] [facility] - | [address] | [place] [address] | | | IMMUNOGENETICS/TRANS | [address] | | | | PLANT LABORATORY | | | | + + + + + documented in this encounter Visit Diagnoses + + | Diagnosis | + + | End stage renal disease (HCC) End stage renal disease | + + documented in this encounter"
--- OUTSIDE RECORDS SUMMARY | ~2019-05-09 | XMS | Encounter Summary ---
Demographics + + + | Address | [address] | | | [place] [address] | + + + | Home Phone [...] + + | Author | [facility] [email or web address] [facility] | + + + | Organization | [facility] | + + + | Address | Unknown | + + + | Phone | Unavailable | + + + Support + + +---------+ + | Name | Relationship | Address | Phone | + + +---------+ + | Olesya Lamb | ECON | Unknown | | + + +---------+ + Care Team Providers + +------+ + | Care Lock Corner Machine Operator Name | Role | Phone [...] | | | | | [place], | | | | | | [place] [address] | | | +--------+ + + + [...] + + + | [facility] - | [address] | [place] [address] | | | IMMUNOGENETICS/TRANS | [address] | | | | PLANT LABORATORY | | | | + + + + + documented in this encounter Visit Diagnoses Not on filedocumented in this encounter"
--- OUTSIDE RECORDS SUMMARY | ~2019-05-09 | XMS | Encounter Summary ---
Demographics + + + | Address | [address] | | | [place] [address] | + + + | Home Phone [...] + + | Author | [facility] [facility] | + [...] Team Providers + +------+ + | Care Regional Construction Manager Name | Role | Phone | [...] | | | | [place], | | | | | | [place] [address] | | | +--------+ + + + [...] [facility] - | [address] | [place] [address] | | | IMMUNOGENETICS/TRANS | [address] | | | | PLANT LABORATORY | | | | + + + + + documented in this encounter Visit Diagnoses Not on filedocumented in this encounter"
--- OUTSIDE RECORDS SUMMARY | ~2019-05-09 | XMS | Encounter Summary ---
Demographics + + + | Address | [address] | | | [place] [address] | + + + | Home Phone [...] Team Providers + +------+ + | Care Cheesemaker Helper Name | Role | Phone | + +------+ + | Oziel Michael MD | PCP | | + +------+ + Encounter Details +--------+ + + + + | Date | Type | Department | Care Team | Description | +--------+ + + + + | 05/20/ | Orders Only | [facility] | Conversion | | | 2016 | | NEPHROLOGY [place] | Transaction, | | | | | [address] | Provider Unknown | | | | | [address] [place], [place] | | | | | | [address] | (Fax) | | | | | [phone] | | | +--------+ + + + [...] | | | | | | 160 [place], [place] | | | | | | [address] | | | | | | | [...] - 1.030 | EXTERNAL | | | [place] | | | LAB | | + [...]
--- OUTSIDE RECORDS SUMMARY | ~2019-05-09 | XMS | Encounter Summary ---
Demographics + + + | Address | [address] | | | [place] [address] | + + + | Home Phone [...] Author + + + | Author | [facility] | + + + [...] Team Providers + +------+ + | Care Satellite Tv Technician Name | Role | Phone | [...] | | | | | Mirlande Nunes [place], | | | | | | [place] [address] | | | +--------+ + + + [...] [facility] - | [address] | [place] [address] | | | IMMUNOGENETICS/TRANS | [address] | | | | PLANT LABORATORY | | | | + + + + + documented in this encounter Visit Diagnoses Not on filedocumented in this encounter"
--- OUTSIDE RECORDS SUMMARY | ~2019-05-09 | XMS | Encounter Summary ---
Demographics + + + | Address | [address] | | | [place] [address] | + + + | Home Phone [...] | Author | [facility] | + + + [...] Team Providers + +------+ + | Care Outpatient Coder Name | Role | Phone | + [...] | | | | | Mirlande Nunes [place], | | | | | | [place] [address] | | | +--------+ + + + [...] [facility] - | [address] | [place] [address] | | | IMMUNOGENETICS/TRANS | [address] [...] [facility] - | [address] | [place] [address] | | | IMMUNOGENETICS/TRANS | [address] | | | | PLANT LABORATORY | | | | + + + + + documented in this encounter Visit Diagnoses Not on filedocumented in this encounter"
--- OUTSIDE RECORDS SUMMARY | ~2019-05-09 | XMS | Encounter Summary ---
Demographics + + + | Address | [address] | | | [place] [address] | + + + | Home Phone [...] Team Providers + +------+ + | Care Tariff Clerk Name | Role | Phone | + +------+ + | Oziel Michael MD | PCP | | + +------+ + Encounter Details +--------+ + + + + | Date | Type | Department | Care Team | Description | +--------+ + + + + | 12/01/ | Orders Only | [facility] | Alexx Gutierrez MD | | | 2017 | | NEPHROLOGY [place] | [address] [place] | | | | | [address] [place] | [address] [place], [place] | | | | | 160 [place], [place] | [address] | | | | | [address] | | | | | | [phone] | | | +--------+ + + + [...] 2019 | Visit | | [address] [facility] | | | | | | [address] [place] | | | | | | [address] | | | | | | | [...] | | | LAB | | | [place] | | | | | + + [...]
--- OUTSIDE RECORDS SUMMARY | ~2019-05-09 | XMS | Encounter Summary ---
Demographics + + + | Address | [address] | | | [place] [address] | + + + | Home Phone [...] | [facility] [employer] [facility] | + + + [...] Providers + +------+ + | Care Manager Math Name | Role | Phone | + [...] | | | | | Mirlande Nunes [place], | | | | | | [place] [address] | | | +--------+ + + + [...] [facility] - | [address] | [place] [address] | | | IMMUNOGENETICS/TRANS | [address] | | | | PLANT LABORATORY | | | | + + + + + documented in this encounter Visit Diagnoses Not on filedocumented in this encounter"
--- OUTSIDE RECORDS SUMMARY | ~2019-05-09 | XMS | Encounter Summary ---
Demographics + + + | Address | [address] | | | [place] [address] | + + + | Home Phone [...] + | Author | [facility] | + + + | Organization | [facility] | + + + | Address | Unknown | + + + | Phone | Unavailable | + + + Support + + +---------+ + | Name | Relationship | Address | Phone | + + +---------+ + | Oleysa Lamb | ECON | Unknown | | + + +---------+ + Care Team Providers + +------+ + | Care Auto Bumper Mechanic Name | Role | Phone | [...] | | | | | Mirlande Nunes [place], | | | | | | [place] [address] | | | +--------+ + + + [...] + + + | [facility] - | [address] | [place] [address] | | | IMMUNOGENETICS/TRANS | [address] | | | | PLANT LABORATORY | | | | + + + + + documented in this encounter Visit Diagnoses Not on filedocumented in this encounter"
--- OUTSIDE RECORDS SUMMARY | ~2019-05-09 | XMS | Encounter Summary ---
Demographics + + + | Address | [address] | | | [place] [address] | + + + | Home Phone | | + + + | Preferred Language | Unknown | + + + | Marital Status | Single | + + + | Alevism Affiliation | Unknown | + + + | Race | Black or | + + + | Ethnic Group | Not or | + + + Author + + + | Author | [facility] | + [...] Team Providers + +------+ + | Care Asp Developer Name | Role | Phone | + [...] | | | | | Mirlande Nunes [place], | | | | | | [place] [address] | | | +--------+ + + + [...] [facility] - | [address] | [place] [address] | | | IMMUNOGENETICS/TRANS | [address] | | | | PLANT LABORATORY | | | | + + + + + documented in this encounter Visit Diagnoses Not on filedocumented in this encounter"
--- OUTSIDE RECORDS SUMMARY | ~2019-05-09 | XMS | Encounter Summary ---
Demographics + + + | Address | [address] | | | [place] [address] | + + + | Home Phone [...] Team Providers + +------+ + | Care Ski Edge Painter Name | Role | Phone | + +------+ + PCP | Unavailable | + +------+ + Encounter Details +--------+ + + + + | Date | Type | Department | Care Team | Description | +--------+ + + + + | 11/30/ | Orders Only | [facility] | Alexx Gutierrez MD | | | 2018 | | NEPHROLOGY [place] | [address] [place] | | | | | [address] [place] | [address] [place], [place] | | | | | 160 [place], [place] | [address] | | | | | [address] | | | | | | [phone] | | | +--------+ + + + [...] 2019 | Visit | | [address] [facility] | | | | | | [address] [facility] [place] | | | | | | [address] | | | | | | | [...] | LAB | | | [place] | | | | | + + [...]
--- OUTSIDE RECORDS SUMMARY | ~2019-05-09 | XMS | Encounter Summary ---
Demographics + + + | Address | [address] | | | [place] [address] | + + + | Home Phone [...] Team Providers + +------+ + | Care Addressing Machine Operator Name | Role | Phone | + +------+ + | Oziel Michael MD | PCP | | + +------+ + Encounter Details +--------+ + + + + | Date | Type | Department | Care Team | Description | +--------+ + + + + | 05/10/ | Orders Only | [facility] | Alexx Gutierrez MD | | | 2017 | | NEPRHOLOGY [place] | [address] | | | | | [address] | 160 [place], [place] | | | | | 101 [place], [place] | [address] | | | | | [address] | | | | | | [phone] | | | +--------+ + + + [...] | Visit | | [address] [facility] [place] | | | | | | [address] [place] | | | | | | [address] | | | | | | | [...]
--- OUTSIDE RECORDS SUMMARY | ~2019-05-09 | XMS | Encounter Summary ---
Demographics + + + | Address | [address] | | | [place] [address] | + + + | Home Phone [...] | Author | [facility] | + + [...] Team Providers + +------+ + | Care Web Services Manager Name | Role | Phone | [...] | | | | | Mirlande Nunes [place], | | | | | | [place] [address] | | | +--------+ + + + [...] [facility] - | [address] | [place] [address] | | | IMMUNOGENETICS/TRANS | [address] | | | | PLANT LABORATORY | | | | + + + + + documented in this encounter Visit Diagnoses Not on filedocumented in this encounter"
--- OUTSIDE RECORDS SUMMARY | ~2019-05-09 | XMS | Encounter Summary ---
Demographics + + + | Address | [address] | | | [place] [address] | + + + | Home Phone [...] + + | Author | [facility] | + + [...] Team Providers + +------+ + | Care Drawing Instructor Name | Role | Phone | [...] | | | | | Mirlande Nunes [place], | | | | | | [place] [address] | | | +--------+ + + + [...] + + + | [facility] - | [address] | [place] [address] | | | IMMUNOGENETICS/TRANS | [address] | | | | PLANT LABORATORY | | | | + + + + + documented in this encounter Visit Diagnoses Not on filedocumented in this encounter"
--- OUTSIDE RECORDS SUMMARY | ~2019-05-09 | XMS | Encounter Summary ---
Demographics + + + | Address | [address] | | | [place] [address] | + + + | Home Phone [...] Providers + +------+ + | Care Computer Support Technician Name | Role | Phone | + +------+ + | Oziel Michael MD | PCP | | + +------+ + Encounter Details +--------+ + + + + | Date | Type | Department | Care Team | Description | +--------+ + + + + | 10/10/ | Orders Only | [facility] | Dav Andre, | | | 2010 | | MEDICAL CENTER | MD [address] | | | | | CLINICAL LABORATORY | [place] [address] | | | | | [address] | [phone] | | | | | [place], [place] | | | | | | [address] | | | | | | [phone] | | | +--------+ + + + [...] | | | | | | [address] [place] | | | | | | [address] | | | | | | | [...] EXTERNAL LAB | | Testing performed at [address];[place] [address] MRSA PCR | | | NEGATIVE Testing performed at | | | [address];[place] [address] | | + + + + +---------+ + + | Performing | Address | City/State/Zipcode | Phone Number | | Organization | | | | + +---------+ + + | EXTERNAL LAB | | | | + +---------+ + + documented in this encounter Visit Diagnoses Not on filedocumented in this encounter"
--- OUTSIDE RECORDS SUMMARY | ~2019-05-09 | XMS | Encounter Summary ---
Demographics + + + | Address | [address] | | | [place] [address] | + + + | Home Phone [...] Team Providers + +------+ + | Care Batch Tester Name | Role | Phone | + +------+ + | Oziel Michael MD | PCP | | + +------+ + Encounter Details +--------+ + + + + | Date | Type | Department | Care Team | Description | +--------+ + + + + | 06/27/ | Orders Only | [facility] | Alexx Gutierrez MD | | | 2019 | | NEPRHOLOGY [place] | [address] | | | | | [address] | 160 [place], [place] | | | | | 101 [place], [place] | [address] | | | | | [address] | | | | | | [phone] | | | +--------+ + + + [...] [place] | | | | | | [address] | | | | | | | | +--------+---------+ + + + documented as of this encounter Visit Diagnoses Not on filedocumented in this encounter"
--- OUTSIDE RECORDS SUMMARY | ~2019-05-09 | XMS | Encounter Summary ---
Demographics + + + | Address | [address] | | | [place] [address] | + + + | Home Phone [...] Team Providers + +------+ + | Care Ordnance Keeper Name | Role | Phone | + +------+ + | Oziel Michael MD | PCP | | + +------+ + Encounter Details +--------+ + + + + | Date | Type | Department | Care Team | Description | +--------+ + + + + | 01/10/ | Orders Only | [facility] | Alexx Gutierrez MD | | | 2017 | | NEPHROLOGY [place] | [address] [place] | | | | | [address] [place] | [address] [place], [place] | | | | | 160 [place], [place] | [address] | | | | | [address] | | | | | | [phone] | | | +--------+ + + + [...] | Visit | | [address] [facility] | | | | | | 160 [place], [place] | | | | | | [address] | | | | | | | [...]
--- OUTSIDE RECORDS SUMMARY | ~2019-05-09 | XMS | Encounter Summary ---
Demographics + + + | Address | [address] | | | [place] [address] | + + + | Home Phone [...] | Author | [facility] | + + [...] Team Providers + +------+ + | Care Independent Insurance Adjuster Name | Role | Phone | [...] | | | | | Mirlande Nunes [place], | | | | | | [place] [address] | | | +--------+ + + + [...] + + + | [facility] - | [address] | [place] [address] | | | IMMUNOGENETICS/TRANS | [address] | | | | PLANT LABORATORY | | | | + + + + + documented in this encounter Visit Diagnoses Not on filedocumented in this encounter"
--- OUTSIDE RECORDS SUMMARY | ~2019-05-09 | XMS | Encounter Summary ---
Demographics + + + | Address | [address] | | | [place] [address] | + + + | Home Phone [...] + + + | Author | [facility] | | | and [place] | + + + | Organization | [facility] | | | [...] Team Providers + +------+ + | Care Dog Bather Name | Role | Phone | + +------+ + PCP | Unavailable | + +------+ + Encounter Details +--------+ + + + + | Date | Type | Department | Care Team | Description | +--------+ + + + + | 12/16/ | Hospital | [facility] MEDICAL | Conversion | Clotted dialysis | | 2014 | Encounter | CENTER CV INTRA OP | Transaction, | access, subsequent | | | | [address] | Provider Unknown | encounter (HCC) | | | | [place], [place] | [phone] | | | | | [address] | | | | | | [phone] | Alexx Gutierrez MD | | | | | | [address] [place] | | | | | | 160 [place], [place] | | | | | | [address] | | | | | | | [...] Date of Service: 12/16/13 153 Status: Signed Beer Runner: Marie Naik RN (Registered Nurse) Pt tolerated [...] 2019 | Visit | | [address] [place] | | | | | | 160 [place], [place] | | | | | | [address] | | | | | | | [...] results and hemodynamic | | | results. [id number], [id number], [address]3499, [address] | | + + + + + [...] needle | | | and exchanged for 6-Mauritanian short sheath over 0.035 angled Glidewire. | | | Using combination of 4-Mauritanian angled Oxford catheter and 0.035 angled | | | [...] | macerated clot was aspirated using a 6-Mauritanian dilator through the | | | 6-Mauritanian sheath. Additionally, balloon maceration or thrombus | [...] of adequate | | conscious sedation, independent retirement supervision of the conscious sedation | | [...] Micropuncture needle | | and exchanged for 6-Mauritanian short sheath over 0.035 angled Glidewire. Using combination | | of 4-Mauritanian angled Oxford catheter and 0.035 angled Glidewire, it was [...] and macerated clot was aspirated using a 6-Mauritanian dilator | | through the 6-Mauritanian sheath. Additionally, balloon maceration or thrombus performed [...] | | anatomic results and hemodynamic results. [id number], [id number], 00176, [address] Electronically | | signed by Ziyad Russ [...] results and hemodynamic | | | results. 25960, 30595, 43193, [address] | | + + + + + [...] needle | | | and exchanged for 6-Mauritanian short sheath over 0.035 angled Glidewire. | | | Using combination of 4-Mauritanian angled Oxford catheter and 0.035 angled | | | [...] | macerated clot was aspirated using a 6-Mauritanian dilator through the | | | 6-Mauritanian sheath. Additionally, balloon maceration or thrombus | [...] of adequate | | conscious sedation, independent retirement supervision of the conscious sedation | | [...] Micropuncture needle | | and exchanged for 6-Mauritanian short sheath over 0.035 angled Glidewire. Using combination | | of 4-Mauritanian angled Oxford catheter and 0.035 angled Glidewire, it was [...] and macerated clot was aspirated using a 6-Mauritanian dilator | | through the 6-Mauritanian sheath. Additionally, balloon maceration or thrombus performed [...] | | anatomic results and hemodynamic results. [id number], [id number], [id number], 84953 Electronically | | signed by Ziyad Russ MD on 12/16/2013 3:20 PM | + + documented in this encounter Visit Diagnoses + + | Diagnosis | + + | Clotted dialysis access, subsequent encounter (HCC) | + + documented in this encounter"
--- OUTSIDE RECORDS SUMMARY | ~2019-05-09 | XMS | Encounter Summary ---
Demographics + + + | Address | [address] | | | [place] [address] | + + + | Home Phone [...] | Author | [facility] [employer] [facility] | + + [...] Team Providers + +------+ + | Care Tablet Coater Name | Role | Phone | [...] | | | | | Mirlande Nunes [place], | | | | | | [place] [address] | | | +--------+ + + + [...] | [facility] - | [address] | [place] [address] | | | IMMUNOGENETICS/TRANS | [address] [...] [facility] - | [address] | [place] [address] | | | IMMUNOGENETICS/TRANS | [address] | | | | PLANT LABORATORY | | | | + + + + + documented in this encounter Visit Diagnoses Not on filedocumented in this encounter"
--- OUTSIDE RECORDS SUMMARY | ~2019-05-09 | XMS | Encounter Summary ---
Demographics + + + | Address | [address] | | | [place] [address] | + + + | Home Phone [...] + + | Author | [facility] [employer] [facility] | + + + | Organization | [facility] | + + + | Address | Unknown | + + + | Phone | Unavailable | + + + Support + + +---------+ + | Name | Relationship | Address | Phone | + + +---------+ + | Olesya Lamb | ECON | Unknown | | + + +---------+ + Care Team Providers + +------+ + | Care Hydrometeorology Teacher Name | Role | Phone | [...] [address] | | | | | | [place], [place] | | | | | | [address] | | | +--------+ + + + [...] and | | | | | | immunostains;[phone]) | | | | | | :- [...] number | | | | | | [id number]: Received in | | | | | [...] | | | | | [facility] | | | | | | Lesiai [...] | + + + + + | [facility] | [address] | [place] [address] | | | PATHOLOGY | [address] | | | + + + + + documented in this encounter Visit Diagnoses Not on filedocumented in this encounter"
--- OUTSIDE RECORDS SUMMARY | ~2019-05-09 | XMS | Encounter Summary ---
Demographics + + + | Address | [address] | | | [place] [address] | + + + | Home Phone | | + + + | Preferred Language | Unknown | + + + | Marital Status | Single | + + + | Confucianism Affiliation | Unknown | + + + | Race | Black or | + + + | Ethnic Group | Not or | + + + Author + + + | Author | [facility] | + + [...] Team Providers + +------+ + | Care Crew Caller Name | Role | Phone | + [...] | | | | | Mirlande Nunes [place], | | | | | | [place] [address] | | | +--------+ + + + [...] + + + | [facility] - | [address] | [place] [address] | | | IMMUNOGENETICS/TRANS | [address] | | | | PLANT LABORATORY | | | | + + + + + documented in this encounter Visit Diagnoses Not on filedocumented in this encounter"
--- OUTSIDE RECORDS SUMMARY | ~2019-05-09 | XMS | Encounter Summary ---
Demographics + + + | Address | [address] | | | [place] [address] | + + + | Home Phone [...] Team Providers + +------+ + | Care Weave Defect Charting Clerk Name | Role | Phone | [...] + + | 02/05/ | Refill | [facility] | Anthony Martinez, | Medication Refill | | 2018 | | NEPHROLOGY [place] | BENZENE WORKER [address] | | | | | [address] [facility] [facility] | [address] | | | | | [address]TO[address] | [place] | | | | | [address] | [address] | | | | | [phone] | [phone] | | | | | | | [...] 2020 | Visit | | [address] [facility] | | | | | | 160 [place], [place] | | | | | | [address] | | | | | | | [...]
--- OUTSIDE RECORDS SUMMARY | ~2019-05-09 | XMS | Encounter Summary ---
Demographics + + + | Address | [address] | | | [place] [address] | + + + | Home Phone [...] Team Providers + +------+ + | Care Knot Cutter Name | Role | Phone | + +------+ + | Oziel Michael MD | PCP | | + +------+ + Encounter Details +--------+ + + + + | Date | Type | Department | Care Team | Description | +--------+ + + + + | 10/11/ | Orders Only | [facility] | Adrian Shaffer MD | | | 2010 | | [facility] | [address] [facility] | | | | | CLINICAL LABORATORY | [place], [place] | | | | | [address] | [address] | | | | | [place], [place] | [phone] | | | | | [address] | | | | | | [phone] | | | +--------+ + + + [...] | | | | | | [address] [place] | | | | | | [address] | | | | | | | [...]
--- OUTSIDE RECORDS SUMMARY | ~2019-05-09 | XMS | Encounter Summary ---
Demographics + + + | Address | [address] | | | [place] [address] | + + + | Home Phone [...] Team Providers + +------+ + | Care Cargo Broker Name | Role | Phone | + +------+ + | Oziel Michael MD | PCP | | + +------+ + Encounter Details +--------+ + + + + | Date | Type | Department | Care Team | Description | +--------+ + + + + | 12/01/ | Orders Only | [facility] | Alexx Gutierrez MD | | | 2017 | | NEPHROLOGY [place] | [address] [place] | | | | | [address] [place] | 160 [place], [place] | | | | | 160 [place], [place] | [address] | | | | | [address] | | | | | | [phone] | | | +--------+ + + + [...] | Visit | | [address] [facility] | | | | | | 160 [place] | | | | | | [address] | | | | | | | [...] | | | LAB | | | [facility] | | | | | + + [...]
--- OUTSIDE RECORDS SUMMARY | ~2019-05-09 | XMS | Encounter Summary ---
Demographics + + + | Address | [address] | | | [place] [address] | + + + | Home Phone [...] Team Providers + +------+ + | Care Rolling Down Machine Operator Name | Role | Phone [...] + + | 02/05/ | Refill | [facility] | Anthony Martinez, | Medication Refill | | 2018 | | NEPHROLOGY [place] | TEMPERING OVEN OPERATOR [address] | | | | | [address] [facility] | [address] | | | | | [address] | [place] | | | | | [address] | [address] | | | | | [phone] | [phone] | | | | | | | [...] 2020 | Visit | | [address] [facility] | | | | | | 160 [place], [place] | | | | | | [address] | | | | | | | [...]
--- OUTSIDE RECORDS SUMMARY | ~2019-05-09 | XMS | Encounter Summary ---
Demographics + + + | Address | [address] | | | [place] [address] | + + + | Home Phone [...] + + + | Author | [facility] | | | and [place] | + + + | Organization | [facility] | | | [...] Team Providers + +------+ + | Care Microstrategy Bi Developer Name | Role | Phone | + +------+ + PCP | Unavailable | + +------+ + Encounter Details +--------+ + + + + | Date | Type | Department | Care Team | Description | +--------+ + + + + | 07/13/ | Orders Only | [facility] | Conversion | | | 2018 | | NEPHROLOGY [place] | Transaction, | | | | | [address] | Provider Unknown | | | | | [address] [place], [place] | | | | | | [address] | (Fax) | | | | | [phone] | | | +--------+ + + + [...] | | | | | | [address] [place], [place] | | | | | | [address] | | | | | | | [...] - 1.030 | EXTERNAL | | | [place] | | | LAB | | + [...] | | | LAB | | | [facility] | | | | | + + [...]
--- OUTSIDE RECORDS SUMMARY | ~2019-05-09 | XMS | Encounter Summary ---
Demographics + + + | Address | [address] | | | [place] [address] | + + + | Home Phone [...] Team Providers + +------+ + | Care Seat Maker Name | Role | Phone | + +------+ + | Oziel Michael MD | PCP | | + +------+ + Encounter Details +--------+ + + + + | Date | Type | Department | Care Team | Description | +--------+ + + + + | 06/08/ | Orders Only | [facility] | Alexx Gutierrez MD | | | 2018 | | NEPRHOLOGY [place] | [address] | | | | | [address] | 160 [place], [place] | | | | | 101 [place], [place] | [address] | | | | | [address] | | | | | | [phone] | | | +--------+ + + + [...] [place] | | | | | | [address] | | | | | | | | +--------+---------+ + + + documented as of this encounter Visit Diagnoses Not on filedocumented in this encounter"
--- OUTSIDE RECORDS SUMMARY | ~2019-05-09 | XMS | Encounter Summary ---
Demographics + + + | Address | [address] | | | [place] [address] | + + + | Home Phone [...] | | + + +---------+ + | Fannycderic Peace | ECON | Unknown | | + + +---------+ + Care Team Providers + +------+ + | Care Pattern Puncher Name | Role | Phone | + +------+ + PCP | Unavailable | + +------+ + Encounter Details +--------+ + + + + | Date | Type | Department | Care Team | Description | +--------+ + + + + | 08/22/ | Hospital | [facility] | Conversion | Pain | | 2014 | Encounter | CONVERSION [address] | Transaction, | | | | | [address] | Provider Unknown | | | | | [place], [place] | [phone] | | | | | [address] | | | | | | [phone] | | | +--------+ + + + [...] 2020 | Visit | | [address] [facility] | | | | | | [address] [facility] | | | | | | [address] | | | | | | | [...]
--- OUTSIDE RECORDS SUMMARY | ~2019-05-09 | XMS | Encounter Summary ---
Demographics + + + | Address | [address] | | | [place] [address] | + + + | Home Phone [...] + | Author | [facility] | + [...] Team Providers + +------+ + | Care Can Tender Name | Role | Phone | [...] | | | | | Mirlande Nunes [place], | | | | | | [place] [address] | | | +--------+ + + + [...] | [facility] - | [address] | [place] [address] | | | IMMUNOGENETICS/TRANS | [address] [...] [facility] - | [address] | [place] [address] | | | IMMUNOGENETICS/TRANS | [address] | | | | PLANT LABORATORY | | | | + + + + + documented in this encounter Visit Diagnoses Not on filedocumented in this encounter"
--- OUTSIDE RECORDS SUMMARY | ~2019-05-09 | XMS | Encounter Summary ---
Demographics + + + | Address | [address] | | | [place] [address] | + + + | Home Phone [...] Team Providers + +------+ + | Care Prototype Deicer Assembler Name | Role | Phone | + +------+ + | Oziel Michael MD | PCP | | + +------+ + Encounter Details +--------+---------+ + + + | Date | Type | Department | Care Team | Description | +--------+---------+ + + + | 02/25/ | Office | [facility] | Alexx Gutierrez MD | Kidney replaced by | | 2019 | Visit | NEPHROLOGY [place] | [address] [place] | transplant (Primary | | | | [address] | [address] [facility] [place] | Dx); | | | | [address] [address] | [id number] | Immunosuppression | | | | [place], [place] | | ([facility]); penitentiary | | | | [address] | | (current) use of | | | | [phone] | | 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; | | | [...] | | | ([facility]); | | | | | | Immunosuppressive | | | | | | management encounter | | | | | | following kidney | | | | | | transplant; | | | | | | Secondary | | | | | | hyperparathyroidism | | | | | | ([facility]); Class 2 | | | | [...] 2021 DENTIST: every 6 months PSA: 08/2020 WATER METER INSTALLER/MAMMOGRAM: N/A HbA1c 6.8% on 07/25/16 IMMUNOSUPPRESSION: Adequate Also: I sent him for his yearly Dermatology check in 03/2019. I sent him for a DEXA scan in 04/2019 (penitentiary (current) use of 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). He will [...] Tacrolimus level, reflex uri nalysis, Urine total mgpcost-wa-rcwhjqsxsm ratio before he comes back in 3 months (he will s ee the K Tx team in [place] in 03/2019).Electronically signed by Alexx Gutierrez MD at 2018 3:14 PM PDT documented in this encounter Progress Notes Alexx Gutierrez MD - 02/25/2019 2:30 PM PDT Patient Active Problem List Diagnosis Date Noted POA penitentiary (current) use of 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 08/20/2018 Unknown [...] LABIRON 26.5 06/27/2016 LABPROT 2,928.1 (A) 11/30/2018 [id number] 29 (A) 06/01/2018 *quantitative BK virus DNA [...] 2021 DENTIST: every 6 months PSA: 08/2020 WATER METER INSTALLER/MAMMOGRAM: N/A HbA1c 6.8% on 07/25/16 IMMUNOSUPPRESSION: Adequate Also: I sent him for his yearly Dermatology check in 03/2019. I sent him for a DEXA scan in 04/2019 (penitentiary (current) use of 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). He will [...] Tacrolimus level, reflex uri nalysis, Urine total sqdvmhb-lv-jatyawrlkw ratio before he comes back in 3 months (he will s ee the K Tx team in [place] in 03/2019). Thank you Isrrael for the opportunity to see this high-complexity renal transplant patient in F/U today. Please do not hesitate to call me at any time with questions or concerns. Truly yours, Alexx Gutierrez MD [facility] documented in this enco unter Plan of Treatment +--------+---------+ + + + | Date | Type | Specialty | Care Team | Description | +--------+---------+ + + + | 05/20/ | Office | Nephrology | Alexx Gutierrez MD | | | 2019 | Visit | | [address] [facility] | | | | | | [address] [place] | | | | | | [address] | | | | | | | | +--------+---------+ + + + documented as of this encounter Visit Diagnoses + + | Diagnosis | + + | Kidney replaced by transplant - Primary | + + | Immunosuppression (HCC) Unspecified disorder of immune mechanism | + + | termite control representative (current) use of 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 | + [...]
--- OUTSIDE RECORDS SUMMARY | ~2019-05-09 | XMS | Encounter Summary ---
Demographics + + + | Address | [address] | | | [place] [address] | + + + | Home Phone [...] Providers + +------+ + | Care Animal Husbandry Worker Name | Role | Phone | [...] | | | | [place] | [phone] | | | | | [address] | | | | | | [phone] | | | +--------+ + + + [...] 2020 | Visit | | [address] [facility] | | | | | | [address] [place] | | | | | | [address] | | | | | | | | +--------+---------+ + + + documented as of this encounter Visit Diagnoses Not on filedocumented in this encounter"
--- OUTSIDE RECORDS SUMMARY | ~2019-05-09 | XMS | Encounter Summary ---
Demographics + + + | Address | [address] | | | [place] [address] | + + + | Home Phone [...] + + | Author | [facility] | | | and [place] | + + + | Organization | [facility] | | | and [...] Team Providers + +------+ + | Care Casting Plug Assembler Name | Role | Phone | + +------+ + | Oziel Michael MD | PCP | | + +------+ + Encounter Details +--------+ + + + + | Date | Type | Department | Care Team | Description | +--------+ + + + + | 10/11/ | Orders Only | [facility] | Adrian Shaffer MD | | | 2010 | | [facility] | [address] [facility] | | | | | CLINICAL LABORATORY | [place], [place] | | | | | [address] | [address] | | | | | [place], [place] | [phone] | | | | | [address] | | | | | | [phone] | | | +--------+ + + + [...] | | | | | | [address] [place] | | | | | | [address] | | | | | | | [...] EXTERNAL LAB | | Testing performed at [facility];[address] | | | Sean Lopez;[place] [address] SERGIO PREP | | | NO YEAST OR FUNGAL ELEMENTS SEEN | | | Testing performed at [facility], [address] [place] [address] | | | Al, [place] [address] REPORT STATUS | | | 10/12/2010 FINAL [...]
--- OUTSIDE RECORDS SUMMARY | ~2019-05-09 | XMS | Encounter Summary ---
Demographics + + + | Address | [address] | | | [place] [address] | + + + | Home Phone | | + + + | Preferred Language | Unknown | + + + | Marital Status | Single | + + + | Restoration Affiliation | Unknown | + + + | Race | Black or | + + + | Ethnic Group | Not or | + + + Author + + + | Author | [facility] | + [...] Team Providers + +------+ + | Care Grinder Outside Diameter Name | Role | Phone | + [...] | | | | | Mirlande Nunes [place], | | | | | | [place] [address] | | | +--------+ + + + [...] [facility] - | [address] | [place] [address] | | | IMMUNOGENETICS/TRANS | [address] | | | | PLANT LABORATORY | | | | + + + + + documented in this encounter Visit Diagnoses Not on filedocumented in this encounter"
--- OUTSIDE RECORDS SUMMARY | ~2019-05-09 | XMS | Encounter Summary ---
Demographics + + + | Address | [address] | | | [place] [address] | + + + | Home Phone [...] Providers + +------+ + | Care Insulation Mechanic Name | Role | Phone | [...] + + | 02/18/ | Telephone | [facility] | Alexx Gutierrez MD | Other (Appointment | | 2019 | | NEPHROLOGY [place] | [address] [place] | reminder call) | | | | [address] [place] | [address] [place], [place] | | | | | [address] [place], [place] | [address] | | | | | [address] | | | | | | [phone] | | | +--------+ + + + [...] 2020 | Visit | | [address] [facility] | | | | | | [address] [place] | | | | | | [address] | | | | | | | [...]
--- OUTSIDE RECORDS SUMMARY | ~2019-05-09 | XMS | Encounter Summary ---
Demographics + + + | Address | [address] | | | [place] [address] | + + + | Home Phone [...] Team Providers + +------+ + | Care Display Manager Name | Role | Phone | + +------+ + PCP | Unavailable | + +------+ + Encounter Details +--------+ + + + + | Date | Type | Department | Care Team | Description | +--------+ + + + + | 09/05/ | Hospital | [facility] | Conversion | ESRD (end stage | | 2013 | Encounter | CENTER CV INTRA OP | Transaction, | renal disease) ([facility]) | | | | [address] | Provider Unknown | | | | | [place], [place] | [phone] | | | | | [address] | | | | | | [phone] | Alexx Gutierrez MD | | | | | | [address] [place] | | | | | | 160 [place], [place] | | | | | | [address] | | | | | | | [...] 09/05/121621 Date of Service: 09/05/121620 Status: Signed Software Development Leader: Ruben Giraldo RN (Registered Nurse) Remains awake, [...] 2019 | Visit | | [facility] [facility] [place] | | | | | | [address] [place] | | | | | | [address] | | | | | | | [...] sedation and | | | independent senior care supervision performed throughout the | | | [...] | | | needle and exchanged for 4-Greenlandic micropuncture sheath close to left | | | cubital fossa. Initial fistula pressure was obtained and | | | fistulogram obtained from the left cubital fossa to the right atrium. | | | Given the significant, in-stent restenosis in mid left cephalic | | | vein, I decided to perform angioplasty of the venous lesion. | | | 4-Greenlandic micropuncture sheath was exchanged for 6-Greenlandic short | | | sheath over a [...] Abhishek, Rad Conversion - 01/04/2019 11:57 PM [facility] | | FISTULAGRAM09/03/2012 12:00 AM HISTORY:53 [...] conscious sedation and independent | | senior care supervision performed throughout the procedure. PROCEDURE: Informed [...] micropuncture needle and exchanged for | | 4-Greenlandic micropuncture sheath close to left cubital fossa. Initial fistula pressure | | was obtained and fistulogram obtained from the left cubital fossa to the right atrium. | | Given the significant, in-stent restenosis in mid left cephalic vein, I decided to | | perform angioplasty of the venous lesion. 4-Greenlandic micropuncture sheath was exchanged | | for 6-Greenlandic short sheath over a 0.035, angled Glidewire. [...] sedation and | | | independent senior care supervision performed throughout the | | | [...] | | | needle and exchanged for 4-Greenlandic micropuncture sheath close to left | | | cubital fossa. Initial fistula pressure was obtained and | | | fistulogram obtained from the left cubital fossa to the right atrium. | | | Given the significant, in-stent restenosis in mid left cephalic | | | vein, I decided to perform angioplasty of the venous lesion. | | | 4-Greenlandic micropuncture sheath was exchanged for 6-Greenlandic short | | | sheath over a [...] Abhishek, Manoj Conversion - 01/04/2019 11:57 PM [facility] | | FISTULAGRAM09/03/2012 12:00 AM HISTORY:53 [...] conscious sedation and independent | | senior care supervision performed throughout the procedure. PROCEDURE: Informed [...] micropuncture needle and exchanged for | | 4-Greenlandic micropuncture sheath close to left cubital fossa. Initial fistula pressure | | was obtained and fistulogram obtained from the left cubital fossa to the right atrium. | | Given the significant, in-stent restenosis in mid left cephalic vein, I decided to | | perform angioplasty of the venous lesion. 4-Greenlandic micropuncture sheath was exchanged | | for 6-Greenlandic short sheath over a 0.035, angled Glidewire. [...]
--- OUTSIDE RECORDS SUMMARY | ~2019-05-09 | XMS | Encounter Summary ---
Demographics + + + | Address | [address] | | | [place] [address] | + + + | Home Phone [...] Team Providers + +------+ + | Care Enterprise Services Manager Name | Role | Phone | + +------+ + | Oziel Michael MD | PCP | | + +------+ + Encounter Details +--------+ + + + + | Date | Type | Department | Care Team | Description | +--------+ + + + + | 01/04/ | Orders Only | [facility] | Alexx Gutierrez MD | | | 2017 | | NEPHROLOGY [place] | [address] [place] | | | | | [address] [place] | [address] [place], [place] | | | | | [address] [place], [place] | [address] | | | | | [address] | | | | | | [phone] | | | +--------+ + + + [...] | | | | | | [address] [place] | | | | | | [address] | | | | | | | [...] | | | LAB | | | [facility] | | | | | + + [...]
--- OUTSIDE RECORDS SUMMARY | ~2019-05-09 | XMS | Encounter Summary ---
Demographics + + + | Address | [address] | | | [place] [address] | + + + | Home Phone [...] Team Providers + +------+ + | Care Mix House Operator Name | Role | Phone | + +------+ + | Oziel Michael MD | PCP | | + +------+ + Encounter Details +--------+ + + + + | Date | Type | Department | Care Team | Description | +--------+ + + + + | 08/30/ | Orders Only | [facility] | Alexx Gutierrez MD | | | 2017 | | NEPRHOLOGY [place] | [address] | | | | | [address] | 160 [place], [place] | | | | | [address] [place], [place] | [address] | | | | | [address] | | | | | | [phone] | | | +--------+ + + + [...] [place] | | | | | | [address] | | | | | | | | +--------+---------+ + + + documented as of this encounter Visit Diagnoses Not on filedocumented in this encounter"
--- OUTSIDE RECORDS SUMMARY | ~2019-05-09 | XMS | Encounter Summary ---
Demographics + + + | Address | [address] | | | [place] [address] | + + + | Home Phone [...] Team Providers + +------+ + | Care Furnace Puncher Name | Role | Phone | + +------+ + | Oziel Michael MD | PCP | | + +------+ + Encounter Details +--------+ + + + + | Date | Type | Department | Care Team | Description | +--------+ + + + + | 10/10/ | Orders Only | [facility] | Alexx Gutierrez MD | | | 2017 | | NEPHROLOGY [place] | [address] [place] | | | | | [address] [place] | [address] [place], [place] | | | | | 160 [place], [place] | [address] | | | | | [address] | | | | | | [phone] | | | +--------+ + + + [...] 2019 | Visit | | [address] [facility] | | | | | | 160 [place], [place] | | | | | | [address] [...]
--- OUTSIDE RECORDS SUMMARY | ~2019-05-09 | XMS | Encounter Summary ---
Demographics + + + | Address | [address] | | | [place] [address] | + + + | Home Phone [...] | [facility] [address] [facility] | + + [...] Providers + +------+ + | Care Social Professionals Name | Role | Phone | + [...] | | | | | Mirlande Nunes [place], | | | | | | [place] [address] | | | +--------+ + + + [...] [facility] - | [address] | [place] [address] | | | IMMUNOGENETICS/TRANS | [address] [...] | [facility] - | [address] | [place] [address] | | | IMMUNOGENETICS/TRANS | [address] [...] + + + | [facility] - | [address] | [place] [address] | | | IMMUNOGENETICS/TRANS | [address] | | | | PLANT LABORATORY | | | | + + + + + documented in this encounter Visit Diagnoses Not on filedocumented in this encounter"
--- OUTSIDE RECORDS SUMMARY | ~2019-05-09 | XMS | Encounter Summary ---
Demographics + + + | Address | [address] | | | [place] [address] | + + + | Home Phone [...] Team Providers + +------+ + | Care Motor Assembly Supervisor Name | Role | Phone | + +------+ + PCP | Unavailable | + +------+ + Encounter Details +--------+ + + + + | Date | Type | Department | Care Team | Description | +--------+ + + + + | 07/20/ | Orders Only | [facility] | Conversion | | | 2018 | | NEPHROLOGY [place] | Transaction, | | | | | [address] [place] | Provider Unknown | | | | | [address] [place], [place] | | | | | | [address] | (Fax) | | | | | [phone] | | | +--------+ + + + [...] 2020 | Visit | | [facility] [address] [facility] | | | | | | [address] [place], [place] | | | | | | [address] | | | | | | | [...] - 1.030 | EXTERNAL | | | [place] | | | LAB | | + [...] | | | LAB | | | [place] | | | | | + + [...]
--- OUTSIDE RECORDS SUMMARY | ~2019-05-09 | XMS | Encounter Summary ---
Demographics + + + | Address | [address] | | | [place] [address] | + + + | Home Phone [...] Team Providers + +------+ + | Care Jig And Fixture Builder Apprentice Name | Role | Phone | + +------+ + | Oziel Michael MD | PCP | | + +------+ + Encounter Details +--------+ + + + + | Date | Type | Department | Care Team | Description | +--------+ + + + + | 05/27/ | Orders Only | [facility] | Conversion | | | 2016 | | NEPHROLOGY [place] | Transaction, | | | | | [address] | Provider Unknown | | | | | [address] [place], [place] | | | | | | [address] | (Fax) | | | | | [phone] | | | +--------+ + + + [...] 2019 | Visit | | [address] [facility] | | | | | | 160 [place], [place] | | | | | | [address] | | | | | | | [...] - 1.030 | EXTERNAL | | | [place] | | | LAB | | + [...] | | | LAB | | | [place] | | | | | + + [...]
--- OUTSIDE RECORDS SUMMARY | ~2019-05-09 | XMS | Encounter Summary ---
Demographics + + + | Address | [address] | | | [place] [address] | + + + | Home Phone | | + + + | Preferred Language | Unknown | + + + | Marital Status | Single | + + + | Voodoo Affiliation | Unknown | + + + | Race | Black or | + + + | Ethnic Group | Not or | + + + Author + + + | Author | [facility] [employer] [facility] | + + [...] Team Providers + +------+ + | Care Nuclear Weapons Specialist Name | Role | Phone | [...] [address] | | | | | | [place], [place] | | | | | | [address] | | | +--------+ + + + [...] and | | | | | | immunostains;[phone]) | | | | | | :- [...] number | | | | | | [id number]: Received in | | | | | [...] | + + + + + | [facility] | [address] | [place] [address] | | | PATHOLOGY | [address] | | | + + + + + documented in this encounter Visit Diagnoses Not on filedocumented in this encounter"
--- OUTSIDE RECORDS SUMMARY | ~2019-05-09 | XMS | Encounter Summary ---
Demographics + + + | Address | [address] | | | [place] [address] | + + + | Home Phone [...] Author + + + | Author | [facility] | + + [...] Providers + +------+ + | Care Client Leader Name | Role | Phone | [...] | | | | | Mirlande Nunes [place], | | | | | | [place] [address] | | | +--------+ + + + [...] [facility] - | [address] | [place] [address] | | | IMMUNOGENETICS/TRANS | [address] | | | | PLANT LABORATORY | | | | + + + + + documented in this encounter Visit Diagnoses Not on filedocumented in this encounter"
--- OUTSIDE RECORDS SUMMARY | ~2019-05-09 | XMS | Encounter Summary ---
Demographics + + + | Address | [address] | | | [place] [address] | + + + | Home Phone [...] + + | Author | [facility] | + + + [...] Team Providers + +------+ + | Care Instructional Design Technologist Name | Role | Phone | [...] | | | | | Mirlande Nunes [place], | | | | | | [place] [address] | | | +--------+ + + + [...] [facility] - | [address] | [place] [address] | | | IMMUNOGENETICS/TRANS | [address] | | | | PLANT LABORATORY | | | | + + + + + documented in this encounter Visit Diagnoses Not on filedocumented in this encounter"
--- OUTSIDE RECORDS SUMMARY | ~2019-05-09 | XMS | Encounter Summary ---
Demographics + + + | Address | [address] | | | [place] [address] | + + + | Home Phone [...] Team Providers + +------+ + | Care Occupational Health Nursing Director Name | Role | Phone | + +------+ + | Oziel Michael MD | PCP | | + +------+ + Encounter Details +--------+ + + + + | Date | Type | Department | Care Team | Description | +--------+ + + + + | 12/16/ | Orders Only | [facility] | Alexx Gutierrez MD | | | 2013 | | NEPHROLOGY [place] | [address] [place] | | | | | [address] [place] | [address] [place], [place] | | | | | 160 [place], [place] | [address] | | | | | [address] | | | | | | [phone] | | | +--------+ + + + [...] | | | | | | [address] [place] | | | | | | [address] | | | | | | | [...]
--- OUTSIDE RECORDS SUMMARY | ~2019-05-09 | XMS | Encounter Summary ---
Demographics + + + | Address | [address] | | | [place] [address] | + + + | Home Phone [...] Author + + + | Author | [facility] | + + [...] Team Providers + +------+ + | Care Residential Carpenter Name | Role | Phone | + [...] | | | | | Mirlande Nunes [place], | | | | | | [place] [address] | | | +--------+ + + + [...] + + + | [facility] - | [address] | [place] [address] | | | IMMUNOGENETICS/TRANS | [address] | | | | PLANT LABORATORY | | | | + + + + + documented in this encounter Visit Diagnoses Not on filedocumented in this encounter"
--- OUTSIDE RECORDS SUMMARY | ~2019-05-09 | XMS | Encounter Summary ---
Demographics + + + | Address | [address] | | | [place] [address] | + + + | Home Phone | | + + + | Preferred Language | Unknown | + + + | Marital Status | Unknown | + + + | Baptist Affiliation | Unknown | + + + | Race | Unknown | + + + | Ethnic Group | Unknown | + + + Author + + + | Author | [facility] | | | and [place] | + + + | Organization | [facility] | | [...] Providers + +------+ + | Care Anesthesiology Technologist Name | Role | Phone | + +------+ + PCP | Unavailable | + +------+ + Encounter Details +--------+ + + + + | Date | Type | Department | Care Team | Description | +--------+ + + + + | 06/26/ | Hospital | [facility] | Conversion | End stage renal | | 2015 | Encounter | CENTER CV INTRA OP | Transaction, | disease (HCC); | | | | [address] | Provider Unknown | Mechanical | | | | [place], [place] | [phone] | complication of | | | | [address] | | other vascular | | | | [phone] | Ziyad Russ, | device, implant, and | | | | | [address] | graft (HCC) | | | | | [address]VE [place], [place] | | | | | | [address] | | | | | | | [...] Note by Nedra Long RN at 06/26/14 5439 Author: Nedra Long RN Service: (none) Author Type: Registered Nurse Filed: 06/26/14 0687 Date of Service: 06/26/141302 Status: Signed Quarter Supervisor: Nedra Long RN (Registered Nurse) Pt tolerated procedure well. Pt returned to holding room, [facility]. Pt provided with juice and c rackers and tolerated well. Discharge education reviewed with patient and handout given. Pt verbalized understanding and voiced no further questions at this time. Pt discharging to de ivate home with friend to provide transportation. Nerda Long RN docume nted in this encounter [...] [place] | | | | | | [address] | | | | | | | [...] hemodynamic | | | and anatomic results. 24804, 95713, 38879 Electronically | | | signed by Ziyad [...] conscious sedation | | | and independent shelter supervision performed throughout the | [...] needle and | | | exchanged for 4-Emirati micropuncture sheath. Initial fistula | | | pressure was obtained and fistulogram obtained from the left cubital | | | fossa to the right atrium. Given the tandem stenosis in mid and | | | distal left cephalic vein, I decided to perform angioplasty of the | | | venous lesions. 4-Emirati micropuncture sheath was exchanged for | | | 6-Emirati short sheath over a 0.035, angled Glidewire. [...] Manoj Weiss Conversion - 12/28/2018 2:18 PM [facility] | | FISTULAGRAM06/26/2014 1:05 PM HISTORY:55 [...] | | adequate conscious sedation and independent shelter supervision performed | | throughout the procedure. [...] | | micropuncture needle and exchanged for 4-Emirati micropuncture sheath. Initial fistula | | pressure was obtained and fistulogram obtained from the left cubital fossa to the right | | atrium. Given the tandem stenosis in mid and distal left cephalic vein, I decided to | | perform angioplasty of the venous lesions. 4-Emirati micropuncture sheath was exchanged | | for 6-Emirati short sheath over a 0.035, angled Glidewire. [...] good hemodynamic and | | anatomic results. 82530, 03075, 54808 Electronically signed by Ziyad Russ MD on | | 06/26/2014 3:20 PM | |3. Successful angioplasty the mid and distal left cephalic venous stenosis with no residua l stenosis. | | | |IMPRESSION: | |1. Successful left brachycephalic fissure gram and angioplasty the mid and distal left cep halic venous stenosis with good hemodynamic and anatomic results. | | | |00593, 71291, 45356 | | | | | + + [...] hemodynamic | | | and anatomic results. 82500, 45312, 22444 Electronically | | | signed by Ziyad [...] conscious sedation | | | and independent shelter supervision performed throughout the | [...] needle and | | | exchanged for 4-Emirati micropuncture sheath. Initial fistula | | | pressure was obtained and fistulogram obtained from the left cubital | | | fossa to the right atrium. Given the tandem stenosis in mid and | | | distal left cephalic vein, I decided to perform angioplasty of the | | | venous lesions. 4-Emirati micropuncture sheath was exchanged for | | | 6-Emirati short sheath over a 0.035, angled Glidewire. [...] | | adequate conscious sedation and independent shelter supervision performed | | throughout the procedure. [...] | | micropuncture needle and exchanged for 4-Emirati micropuncture sheath. Initial fistula | | pressure was obtained and fistulogram obtained from the left cubital fossa to the right | | atrium. Given the tandem stenosis in mid and distal left cephalic vein, I decided to | | perform angioplasty of the venous lesions. 4-Emirati micropuncture sheath was exchanged | | for 6-Emirati short sheath over a 0.035, angled Glidewire. [...] good hemodynamic and | | anatomic results. 34291, 11541, 78889 Electronically signed by Ziyad Russ MD on | | 06/26/2014 3:20 PM | |3. Successful angioplasty the mid and distal left cephalic venous stenosis with no residua l stenosis. | | | |IMPRESSION: | |1. Successful left brachycephalic fissure gram and angioplasty the mid and distal left cep halic venous stenosis with good hemodynamic and anatomic results. | | | |07469, 31004, 98803 | | | | | + + documented in this encounter Visit Diagnoses + + | Diagnosis | + + | End stage renal disease (HCC) End stage renal disease | + + | Mechanical complication of other vascular device, implant, and graft | + + documented in this encounter"
--- OUTSIDE RECORDS SUMMARY | ~2019-05-09 | XMS | Encounter Summary ---
Demographics + + + | Address | [address] | | | [place] [address] | + + + | Home Phone [...] Providers + +------+ + | Care Medical Front Desk Specialist Name | Role | Phone | + +------+ + | Oziel Michael MD | PCP | | + +------+ + Encounter Details +--------+ + + + + | Date | Type | Department | Care Team | Description | +--------+ + + + + | 05/10/ | Orders Only | [facility] | Alexx Gutierrez MD | | | 2017 | | NEPRHOLOGY [place] | [address] | | | | | [address] | [address] [place], [place] | | | | | 101 [place], [place] | [address] | | | | | [address] | | | | | | [phone] | | | +--------+ + + + [...] | Visit | | [address] [facility] [address] | | | | | | [address] [place] | | | | | | [address] | | | | | | | [...] | | | LAB | | | [place] | | | | | + + [...]
--- OUTSIDE RECORDS SUMMARY | ~2019-05-09 | XMS | Encounter Summary ---
Demographics + + + | Address | [address] | | | [place] [address] | + + + | Home Phone [...] + + + | Author | [facility] | | | and [place] | + + + | Organization | [facility] [...] Team Providers + +------+ + | Care Refrigeration Plant Operator Name | Role | Phone | + +------+ + PCP | Unavailable | + +------+ + Encounter Details +--------+ + + + + | Date | Type | Department | Care Team | Description | +--------+ + + + + | 07/06/ | Orders Only | [facility] | Conversion | | | 2018 | | NEPHROLOGY [place] | Transaction, | | | | | [address] | Provider Unknown | | | | | [address] [place], [place] | | | | | | [address] | (Fax) | | | | | [phone] | | | +--------+ + + + [...] 2020 | Visit | | [address] [facility] | | | | | | [address] [place], [place] | | | | | | [address] | | | | | | | [...] - 1.030 | EXTERNAL | | | [place] | | | LAB | | + [...] | | | LAB | | | [place] | | | | | + + [...]
--- OUTSIDE RECORDS SUMMARY | ~2019-05-09 | XMS | Encounter Summary ---
Demographics + + + | Address | [address] | | | [place] [address] | + + + | Home Phone [...] Team Providers + +------+ + | Care Dental Laboratory Technician Apprentice Name | Role | Phone | + +------+ + PCP | Unavailable | + +------+ + Encounter Details +--------+ + + + + | Date | Type | Department | Care Team | Description | +--------+ + + + + | 08/07/ | Orders Only | [facility] | Conversion | | | 2018 | | NEPHROLOGY [place] | Transaction, | | | | | [address] | Provider Unknown | | | | | [address] [place], [place] | | | | | | [address] | (Fax) | | | | | [phone] | | | +--------+ + + + [...] 2019 | Visit | | [address] [facility] | | | | | | [address] [place], [place] | | | | | | [address] | | | | | | | [...] - 1.030 | EXTERNAL | | | [place] | | | LAB | | + [...]
--- OUTSIDE RECORDS SUMMARY | ~2019-05-09 | XMS | Encounter Summary ---
Demographics + + + | Address | [address] | | | [place] [address] | + + + | Home Phone [...] Providers + +------+ + | Care Regional Project Manager Name | Role | Phone | + +------+ + | Oziel Michael MD | PCP | | + +------+ + Encounter Details +--------+ + + + + | Date | Type | Department | Care Team | Description | +--------+ + + + + | 10/16/ | Orders Only | [facility] | Alexx Gutierrez MD | | | 2019 | | NEPRHOLOGY [place] | [address] | | | | | [address] | [address] [place], [place] | | | | | 101 [place], [place] | [address] | | | | | [address] | | | | | | [phone] | | | +--------+ + + + [...] 2020 | Visit | | [address] [facility] | | | | | | [address] [place] | | | | | | [address] | | | | | | | | +--------+---------+ + + + documented as of this encounter Visit Diagnoses Not on filedocumented in this encounter"
--- OUTSIDE RECORDS SUMMARY | ~2019-05-09 | XMS | Encounter Summary ---
Demographics + + + | Address | [address] | | | [place] [address] | + + + | Home Phone | | + + + | Preferred Language | Unknown | + + + | Marital Status | Unknown | + + + | Anabaptist Affiliation | Unknown | + + + | Race | Unknown | + + + | Ethnic Group | Unknown | + + + Author + + + | Author | [facility] | | | and [place] | + + + | Organization | [facility] | | | [...] Team Providers + +------+ + | Care Rn Teacher Name | Role | Phone | + +------+ + | Oziel Michael MD | PCP | | + +------+ + Encounter Details +--------+ + + + + | Date | Type | Department | Care Team | Description | +--------+ + + + + | 06/27/ | Orders Only | [facility] | Alexx Gutierrez MD | | | 2019 | | NEPRHOLOGY [place] | [address] | | | | | [address] | [address] [place], [place] | | | | | 101 [place], [place] | [address] | | | | | [address] | | | | | | [phone] | | | +--------+ + + + [...] 2020 | Visit | | [address] [facility] | | | | | | [address] [place] | | | | | | [address] | | | | | | | | +--------+---------+ + + + documented as of this encounter Visit Diagnoses Not on filedocumented in this encounter"
--- OUTSIDE RECORDS SUMMARY | ~2019-05-09 | XMS | Encounter Summary ---
Demographics + + + | Address | [address] | | | [place] [address] | + + + | Home Phone [...] | Author | [facility] [employer] [facility] | + + [...] Team Providers + +------+ + | Care Rhinestone Setter Name | Role | Phone | [...] | | | | [address] N[address] [place], | | | | | | [place] [address] | | | +--------+ + + + [...] - | [address] | [place] [address] | | | IMMUNOGENETICS/TRANS | [address] | | | | PLANT LABORATORY | | | | + + + + + documented in this encounter Visit Diagnoses Not on filedocumented in this encounter"
--- OUTSIDE RECORDS SUMMARY | ~2019-05-09 | XMS | Encounter Summary ---
Demographics + + + | Address | [address] | | | [place] [address] | + + + | Home Phone [...] Providers + +------+ + | Care Technical Systems Architect Name | Role | Phone | + +------+ + | Oziel Michael MD | PCP | | + +------+ + Encounter Details +--------+ + + + + | Date | Type | Department | Care Team | Description | +--------+ + + + + | 10/11/ | Orders Only | [facility] | Adrian Shaffer MD | | | 2010 | | [facility] | [address] [address] | | | | | CLINICAL LABORATORY | [place], [place] | | | | | [address] | [address] | | | | | [place], [place] | [phone] | | | | | [address] | | | | | | [phone] | | | +--------+ + + + [...] | | | | | | [address] | | | | | | [address] | | | | | | | [...] EXTERNAL LAB | | Testing performed at [facility];[address] | | | [facility];[place] [address] CULTURE | | | NO FUNGUS ISOLATED | | | Testing performed at [facility], [address], | | | [place] [address] REPORT STATUS | | | 11/03/2010 FINAL [...]
--- OUTSIDE RECORDS SUMMARY | ~2019-05-09 | XMS | Encounter Summary ---
Demographics + + + | Address | [address] | | | [place] [address] | + + + | Home Phone [...] + | Author | [facility] | + + + [...] Team Providers + +------+ + | Care Scaling Machine Operator Name | Role | Phone [...] | | | | | [address]e Nunes [place], | | | | | | [place] [address] | | | +--------+ + + + [...] [facility] - | [address] | [place] [address] | | | IMMUNOGENETICS/TRANS | [address] | | | | PLANT LABORATORY | | | | + + + + + documented in this encounter Visit Diagnoses Not on filedocumented in this encounter"
--- OUTSIDE RECORDS SUMMARY | ~2019-05-09 | XMS | Encounter Summary ---
Demographics + + + | Address | [address] | | | [place] [address] | + + + | Home Phone | | + + + | Preferred Language | Unknown | + + + | Marital Status | Unknown | + + + | Orthodox Affiliation | Unknown | + + + | Race | Unknown | + + + | Ethnic Group | Unknown | + + + Author + + + | Author | [facility] | | | and [place] | + + + | Organization | [facility] | | [...] Providers + +------+ + | Care Plastic Worker Name | Role | Phone | + +------+ + | Oziel Michael MD | PCP | | + +------+ + Encounter Details +--------+ + + + + | Date | Type | Department | Care Team | Description | +--------+ + + + + | 10/11/ | Orders Only | [facility] | Adrian Shaffer MD | | | 2010 | | [facility] | [address] | | | | | CLINICAL LABORATORY | [place], [place] | | | | | [address] | [address] | | | | | [place], [place] | [phone] | | | | | [address] | | | | | | [phone] | | | +--------+ + + + [...] | | | | | | [address] [place] [place] | | | | | | [address] | | | | | | | [...] [facility];[address] | | | [address];[place] [address] SERGIO PREP | | | NO YEAST OR FUNGAL ELEMENTS SEEN | | | Testing performed at [facility], [address] [place] [address] | | | [place], [place] [address] REPORT STATUS | | | 10/12/2010 FINAL [...]
--- OUTSIDE RECORDS SUMMARY | ~2019-05-09 | XMS | Encounter Summary ---
Demographics + + + | Address | [address] | | | [place] [address] | + + + | Home Phone [...] + + + | Author | [facility] [employer] [facility] | + + + [...] Providers + +------+ + | Care Technical Architect Name | Role | Phone | [...] | | | | | [address]e Nunes [place], | | | | | | [place] [address] | | | +--------+ + + + [...] + + + | [facility] - | [address] | [place] [address] | | | IMMUNOGENETICS/TRANS | [address] | | | | PLANT LABORATORY | | | | + + + + + documented in this encounter Visit Diagnoses Not on filedocumented in this encounter"
--- OUTSIDE RECORDS SUMMARY | ~2019-05-09 | XMS | Encounter Summary ---
Demographics + + + | Address | [address] | | | [place] [address] | + + + | Home Phone [...] Team Providers + +------+ + | Care Foundry Laborer Coreroom Name | Role | Phone | + +------+ + PCP | Unavailable | + +------+ + Encounter Details +--------+ + + + + | Date | Type | Department | Care Team | Description | +--------+ + + + + | 07/06/ | Orders Only | [facility] | Conversion | | | 2018 | | NEPHROLOGY [place] | Transaction, | | | | | [address] | Provider Unknown | | | | | [address] [place], [place] | | | | | | [address] | (Fax) | | | | | [phone] | | | +--------+ + + + [...] 2020 | Visit | | [address] [facility] | | | | | | [address] [place], [place] | | | | | | [address] | | | | | | | [...] - 1.030 | EXTERNAL | | | [place] | | | LAB | | + [...] | | | LAB | | | [place] | | | | | + + [...]
--- OUTSIDE RECORDS SUMMARY | ~2019-05-09 | XMS | Encounter Summary ---
Demographics + + + | Address | [address] | | | [place] [address] | + + + | Home Phone [...] + + + | Author | [facility] | | | and [place] | + + + | Organization | [facility] | | | [...] Providers + +------+ + | Care Implementation Project Manager Name | Role | Phone [...] MD | | | 2010 | | [facility] | [address] | | | | | CLINICAL LABORATORY | [place], [place] | | | | | [address] | [address] | | | | | [place], [place] | [phone] | | | | | [address] | | | | | | [phone] | | | +--------+ + + + [...] | | | | | | [address] [place] | | | | | | [address] | | | | | | | [...] | Testing performed | | | at [facility];[address] [place] [address];[place] [address] SPECIAL REQUESTS | | | LAC | | | Testing performed at [facility];[address] [place], [place] [address] [place] [address] | | | CULTURE NO GROWTH IN 5 DAYS. | | | Testing | | | performed at [facility];[address] [place] [address] REPORT STATUS | | | 10/17/2010 FINAL [...]
--- OUTSIDE RECORDS SUMMARY | ~2019-05-09 | XMS | Encounter Summary ---
Demographics + + + | Address | [address] | | | [place] [address] | + + + | Home Phone [...] + | Author | [facility] | + + + | Organization | [facility] | + + + | Address | Unknown | + + + | Phone | Unavailable | + + + Support + + +---------+ + | Name | Relationship | Address | Phone | + + +---------+ + | Olesya Lamb | ECON | Unknown | | + + +---------+ + Care Team Providers + +------+ + | Care Youth Coordinator Name | Role | Phone | [...] | | | | | [address] [place], | | | | | | [place] [address] | | | +--------+ + + + [...] [facility] - | [address] | [place] [address] | | | IMMUNOGENETICS/TRANS | [address] | | | | PLANT LABORATORY | | | | + + + + + documented in this encounter Visit Diagnoses Not on filedocumented in this encounter"
--- OUTSIDE RECORDS SUMMARY | ~2019-05-09 | XMS | Encounter Summary ---
Demographics + + + | Address | [address] | | | [place] [address] | + + + | Home Phone [...] Team Providers + +------+ + | Care Hopper Filler Name | Role | Phone | [...] + + | 03/06/ | Refill | [facility] | Alexx Gutierrez MD | Medication Refill | | 2019 | | NEPHROLOGY [place] | [address] [facility] | | | | | [address] [facility] [address] | [address] [place], [place] | | | | | [facility] [address] | [id number] | | | | | [place], [place] | | | | | | [address] | | | | | | [phone] | | | +--------+--------+ + + + [...] 2020 | Visit | | [address] [facility] | | | | | | [address] [place] | | | | | | [address] | | | | | | | [...]
--- OUTSIDE RECORDS SUMMARY | ~2019-05-09 | XMS | Encounter Summary ---
Demographics + + + | Address | [address] | | | [place] [address] | + + + | Home Phone [...] Providers + +------+ + | Care Fish Roe Processor Name | Role | Phone | + +------+ + | Oziel Michael MD | PCP | | + +------+ + Encounter Details +--------+ + + + + | Date | Type | Department | Care Team | Description | +--------+ + + + + | 09/27/ | Orders Only | [facility] | Alexx Gutierrez MD | | | 2019 | | NEPRHOLOGY [place] | [address] | | | | | [address] | [address] [place], [place] | | | | | [address] [place], [place] | [address] | | | | | [address] | | | | | | [phone] | | | +--------+ + + + [...] 2020 | Visit | | [address] [facility] | | | | | | [address] [place] | | | | | | [address] | | | | | | | | +--------+---------+ + + + documented as of this encounter Visit Diagnoses Not on filedocumented in this encounter"
--- OUTSIDE RECORDS SUMMARY | ~2019-05-09 | XMS | Encounter Summary ---
Demographics + + + | Address | [address] | | | [place] [address] | + + + | Home Phone | | + + + | Preferred Language | Unknown | + + + | Marital Status | Single | + + + | Evangelical Affiliation | Unknown | + + + | Race | Black or | + + + | Ethnic Group | Not or | + + + Author + + + | Author | [facility] | + + + | Organization | [facility] | + + + | Address | Unknown | + + + | Phone | Unavailable | + + + Support + + +---------+ + | Name | Relationship | Address | Phone | + + +---------+ + | Olesya Lamb | ECON | Unknown | | + + +---------+ + Care Team Providers + +------+ + | Care Stamp Mounter Name | Role | Phone | + [...] | | | | | [address] [place], | | | | | | [place] [address] | | | +--------+ + + + [...] + + | [facility] - | [address] | [place] [address] | | | IMMUNOGENETICS/TRANS | [address] [...] + + | [facility] - | [address] | [place] [address] | | | IMMUNOGENETICS/TRANS | [address] | | | | PLANT LABORATORY | | | | + + + + + documented in this encounter Visit Diagnoses Not on filedocumented in this encounter"
--- OUTSIDE RECORDS SUMMARY | ~2019-05-09 | XMS | Encounter Summary ---
Demographics + + + | Address | [address] | | | [place] [address] | + + + | Home Phone | | + + + | Preferred Language | Unknown | + + + | Marital Status | Single | + + + | Roman Catholic Affiliation | Unknown | + + + | Race | Black or | + + + | Ethnic Group | Not or | + + + Author + + + | Author | [facility] [facility] | + + + [...] Team Providers + +------+ + | Care Procurement Assistant Name | Role | Phone | [...] | | | | | [address] [place], | | | | | | [place] [address] | | | +--------+ + + + [...] [facility] - | [address] | [place] [address] | | | IMMUNOGENETICS/TRANS | [address] | | | | PLANT LABORATORY | | | | + + + + + documented in this encounter Visit Diagnoses Not on filedocumented in this encounter"
--- OUTSIDE RECORDS SUMMARY | ~2019-05-09 | XMS | Encounter Summary ---
Demographics + + + | Address | [address] | | | [place] [address] | + + + | Home Phone [...] Author + + + | Author | [facility] | + + + | [...] Providers + +------+ + | Care Commercial Sheet Metal Foreman Name | Role | Phone | [...] | | | | | [address] Nunes [place], | | | | | | [place] [address] | | | +--------+ + + + [...] + + + | [facility] - | [address] | [place] [address] | | | IMMUNOGENETICS/TRANS | [address] | | | | PLANT LABORATORY | | | | + + + + + documented in this encounter Visit Diagnoses Not on filedocumented in this encounter"
--- OUTSIDE RECORDS SUMMARY | ~2019-05-09 | XMS | Encounter Summary ---
Demographics + + + | Address | [address] | | | [place] [address] | + + + | Home Phone [...] Team Providers + +------+ + | Care Brim Shaper Name | Role | Phone | + +------+ + PCP | Unavailable | + +------+ + Encounter Details +--------+ + + + + | Date | Type | Department | Care Team | Description | +--------+ + + + + | 06/13/ | Orders Only | [facility] | Alexx Gutierrez MD | | | 2019 | | NEPRHOLOGY [place] | [address] | | | | | [address] | [address] [place], [place] | | | | | [address] [place], [place] | [address] | | | | | [address] | | | | | | [phone] | | | +--------+ + + + [...] | Visit | | [address] [facility] | | | | | | [address] [place], [place] | | | | | | [address] | | | | | | | [...] | | | LAB | | | [place] | | | | | + + [...]
--- OUTSIDE RECORDS SUMMARY | ~2019-05-09 | XMS | Encounter Summary ---
Demographics + + + | Address | [address] | | | [place] [address] | + + + | Home Phone [...] + | Author | [facility] | [...] Team Providers + +------+ + | Care Army Officer Name | Role | Phone | [...] | | | | | Mirlande Nunes [place], | | | | | | [place] [address] | | | +--------+ + + + [...]
--- OUTSIDE RECORDS SUMMARY | ~2019-05-09 | XMS | Encounter Summary ---
Demographics + + + | Address | [address] | | | [place] [address] | + + + | Home Phone | | + + + | Preferred Language | Unknown | + + + | Marital Status | Unknown | + + + | Yazdanism Affiliation [...] Team Providers + +------+ + | Care Front End Developer Designer Name | Role | Phone | + +------+ + | Oziel Michael MD | PCP | | + +------+ + Encounter Details +--------+ + + + + | Date | Type | Department | Care Team | Description | +--------+ + + + + | 10/11/ | Orders Only | [facility] | Adrian Shaffer MD | | | 2010 | | [facility] | [address] | | | | | CLINICAL LABORATORY | [place], [place] | | | | | [address] | [address] | | | | | [place], [place] | [phone] | | | | | [address] | | | | | | [phone] | | | +--------+ + + + [...] | | | | | [address] [place] | | | | | | [address] | | | | | | | [...]
--- OUTSIDE RECORDS SUMMARY | ~2019-05-09 | XMS | Encounter Summary ---
Demographics + + + | Address | [address] | | | [place] [address] | + + + | Home Phone [...] + + | Author | [facility] | + + + [...] Team Providers + +------+ + | Care Dietitian Assistant Name | Role | Phone | [...] | | | | | Mirlande Nunes [place], | | | | | | [place] [address] | | | +--------+ + + + [...] [facility] - | [address] | [place] [address] | | | IMMUNOGENETICS/TRANS | [address] | | | | PLANT LABORATORY | | | | + + + + + documented in this encounter Visit Diagnoses Not on filedocumented in this encounter"
--- OUTSIDE RECORDS SUMMARY | ~2019-05-09 | XMS | Encounter Summary ---
Demographics + + + | Address | [address] | | | [place] [address] | + + + | Home Phone [...] Team Providers + +------+ + | Care Pivot Maker Name | Role | Phone | + +------+ + | Oziel Michael MD | PCP | | + +------+ + Encounter Details +--------+ + + + + | Date | Type | Department | Care Team | Description | +--------+ + + + + | 06/13/ | Orders Only | [facility] | Conversion | | | 2018 | | NEPRHOLOGY SECRETARY | Transaction, | | | | | [address] | Provider Unknown | | | | | [address] [place], [place] | [phone] | | | | | [address] | | | | | | [phone] | | | +--------+ + + + [...] 2019 | Visit | | [address] [facility] | | | | | | [address] [place] | | | | | | [address] | | | | | | | [...]
--- OUTSIDE RECORDS SUMMARY | ~2019-05-09 | XMS | Encounter Summary ---
Demographics + + + | Address | [address] | | | [place] [address] | + + + | Home Phone [...] Team Providers + +------+ + | Care Early Childhood Educator Aide Name | Role | Phone | + +------+ + PCP | Unavailable | + +------+ + Encounter Details +--------+ + + + + | Date | Type | Department | Care Team | Description | +--------+ + + + + | 06/01/ | Orders Only | [facility] | Alexx Gutierrez MD | | | 2018 | | NEPHROLOGY [place] | [address] [place] | | | | | [address] [place] | [address] [place], [place] | | | | | [address] [place], [place] | [address] | | | | | [address] | | | | | | [phone] | | | +--------+ + + + [...] | | | | | | [address] [facility] | | | | | | [address] | | | | | | | [...]
--- OUTSIDE RECORDS SUMMARY | ~2019-05-09 | XMS | Encounter Summary ---
Demographics + + + | Address | [address] | | | [place] [address] | + + + | Home Phone [...] Team Providers + +------+ + | Care Hay Buckler Name | Role | Phone | + +------+ + | Oziel Michael MD | PCP | | + +------+ + Encounter Details +--------+ + + + + | Date | Type | Department | Care Team | Description | +--------+ + + + + | 10/13/ | Orders Only | [facility] | Alexx Gutierrez MD | | | 2017 | | NEPHROLOGY [place] | [address] [place] | | | | | [address] [place] | [address] [place], [place] | | | | | [address] [place], [place] | [address] | | | | | [address] | | | | | | [phone] | | | +--------+ + + + [...] | | | | | | [address] [place], [place] | | | | | | [address] | | | | | | | [...]
--- OUTSIDE RECORDS SUMMARY | ~2019-05-09 | XMS | Encounter Summary ---
Demographics + + + | Address | [address] | | | [place] [address] | + + + | Home Phone [...] Author | [facility] | + + + [...] Team Providers + +------+ + | Care Traffic Checker Name | Role | Phone | + [...] | | | | | Mirlande Nunes [place], | | | | | | [place] [address] | | | +--------+ + + + [...] + + + | [facility] - | [address] | [place] [address] | | | IMMUNOGENETICS/TRANS | [address] | | | | PLANT LABORATORY | | | | + + + + + documented in this encounter Visit Diagnoses Not on filedocumented in this encounter"
--- OUTSIDE RECORDS SUMMARY | ~2019-05-09 | XMS | Encounter Summary ---
Demographics + + + | Address | [address] | | | [place] [address] | + + + | Home Phone [...] + + + | Author | [facility] [place] | | | and [place] | + + + | Organization | [facility] | | | [...] Team Providers + +------+ + | Care Customer Relations Assistant Name | Role | Phone | + +------+ + PCP | Unavailable | + +------+ + Encounter Details +--------+ + + + + | Date | Type | Department | Care Team | Description | +--------+ + + + + | 11/30/ | Hospital | [facility] | Conversion | ESRD (end stage | | 2012 | Encounter | CENTER CV INTRA OP | Transaction, | renal disease) ([facility]) | | | | [address] | Provider Unknown | | | | | [place], [place] | [phone] | | | | | [address] | | | | | | [phone] | Ziyad Russ, | | | | | | [address] | | | | | | [place], [place] | | | | | | [address] | | | | | | | [...] 12/01/111613 Date of Service: 12/01/111611 Status: Signed Bathroom Tiling Professional: Alice Conrad RN (Registered Nurse) Pt tolerated [...] [place] | | | | | | [address] | | | | | | | [...] conscious sedation and | | | independent long-term supervision performed throughout the | | | [...] needle and | | | exchanged for 4-Palestinian micropuncture sheath. Initial fistula | | | pressure was obtained and fistulogram obtained from the left cubital | | | fossa to the right atrium. Given the multiple tandem stenosis in | | | proximal and mid left cephalic vein in including in-stent restenosis, | | | I decided to perform angioplasty of the venous lesions. 4-Palestinian | | | micropuncture sheath was exchanged for 6-Palestinian short sheath over a | | | [...] Abhishek, Rad Conversion - 01/05/2019 9:02 AM [facility] | | FISTULAGRAM12/01/2011 1:45 PM [...] adequate conscious sedation and independent | | long-term supervision performed throughout the procedure. PROCEDURE: Informed [...] accessed using micropuncture needle and exchanged for 4-Palestinian | | micropuncture sheath. Initial fistula pressure was obtained and fistulogram obtained | | from the left cubital fossa to the right atrium. Given the multiple tandem stenosis in | | proximal and mid left cephalic vein in including in-stent restenosis, I decided to | | perform angioplasty of the venous lesions. 4-Palestinian micropuncture sheath was exchanged | | for 6-Palestinian short sheath over a 0.035, angled Glidewire. [...] conscious sedation and | | | independent long-term supervision performed throughout the | | | [...] needle and | | | exchanged for 4-Palestinian micropuncture sheath. Initial fistula | | | pressure was obtained and fistulogram obtained from the left cubital | | | fossa to the right atrium. Given the multiple tandem stenosis in | | | proximal and mid left cephalic vein in including in-stent restenosis, | | | I decided to perform angioplasty of the venous lesions. 4-Palestinian | | | micropuncture sheath was exchanged for 6-Palestinian short sheath over a | | | [...] adequate conscious sedation and independent | | long-term supervision performed throughout the procedure. PROCEDURE: Informed [...] accessed using micropuncture needle and exchanged for 4-Palestinian | | micropuncture sheath. Initial fistula pressure was obtained and fistulogram obtained | | from the left cubital fossa to the right atrium. Given the multiple tandem stenosis in | | proximal and mid left cephalic vein in including in-stent restenosis, I decided to | | perform angioplasty of the venous lesions. 4-Palestinian micropuncture sheath was exchanged | | for 6-Palestinian short sheath over a 0.035, angled Glidewire. [...]
--- OUTSIDE RECORDS SUMMARY | ~2019-05-09 | XMS | Encounter Summary ---
Demographics + + + | Address | [address] | | | [place] [address] | + + + | Home Phone [...] + | Author | [facility] | + + [...] Providers + +------+ + | Care Hand Stone Polisher Name | Role | Phone | + [...] | | | | | Mirlande Nunes [place], | | | | | | [place] [address] | | | +--------+ + + + [...] + + + | [facility] - | [address] | [place] [address] | | | IMMUNOGENETICS/TRANS | [address] | | | | PLANT LABORATORY | | | | + + + + + documented in this encounter Visit Diagnoses Not on filedocumented in this encounter"
--- OUTSIDE RECORDS SUMMARY | ~2019-05-09 | XMS | Encounter Summary ---
Demographics + + + | Address | [address] | | | [place] [address] | + + + | Home Phone [...] [address] [facility] | + + + | Organization | [facility] | + + + | Address | Unknown | + + + | Phone | Unavailable | + + + Support + + +---------+ + | Name | Relationship | Address | Phone | + + +---------+ + | Olesya Lamb | ECON | Unknown | | + + +---------+ + Care Team Providers + +------+ + | Care Surgical Aides Teacher Name | Role | Phone | [...] | | | | | Mirlande Nunes [place], | | | | | | [place] [address] | | | +--------+ + + + [...] + + + | [facility] - | [address] | [place] [address] | | | IMMUNOGENETICS/TRANS | [address] | | | | PLANT LABORATORY | | | | + + + + + documented in this encounter Visit Diagnoses Not on filedocumented in this encounter"
--- OUTSIDE RECORDS SUMMARY | ~2019-05-09 | XMS | Encounter Summary ---
Demographics + + + | Address | [address] | | | [place] [address] | + + + | Home Phone [...] + | Author | [facility] | + + + [...] +------+ + | Care Associate Professor Of Law Name | Role | Phone | + [...] | | | | | Mirlande Nunes [place], | | | | | | [place] [address] | | | +--------+ + + + [...] [facility] - | [address] | [place] [address] | | | IMMUNOGENETICS/TRANS | [address] | | | | PLANT LABORATORY | | | | + + + + + documented in this encounter Visit Diagnoses Not on filedocumented in this encounter"
--- OUTSIDE RECORDS SUMMARY | ~2019-05-09 | XMS | Encounter Summary ---
Demographics + + + | Address | [address] | | | [place] [address] | + + + | Home Phone [...] | [facility] | | | and [place] | + [...] Providers + +------+ + | Care Customer Service Operator Name | Role | Phone | + +------+ + | Oziel Michael MD | PCP | | + +------+ + Encounter Details +--------+ + + + + | Date | Type | Department | Care Team | Description | +--------+ + + + + | 10/12/ | Orders Only | [facility] | Emmett Solitario MD | | | 2010 | | [facility] | [address] [facility] | | | | | CLINICAL LABORATORY | [place] [address] | | | | | [address] | [phone] | | | | | [place], [place] | | | | | | [address] | | | | | | [phone] | | | +--------+ + + + [...] | | | | | | [address] [place], [place] | | | | | | [address] | | | | | | | [...] EXTERNAL LAB | | Testing performed at [address];[place] [address] MRSA PCR | | | NEGATIVE Testing performed at | | | [address];[place] [address] | | + + + + +---------+ + + | Performing | Address | City/State/Zipcode | Phone Number | | Organization | | | | + +---------+ + + | EXTERNAL LAB | | | | + +---------+ + + documented in this encounter Visit Diagnoses Not on filedocumented in this encounter"
--- OUTSIDE RECORDS SUMMARY | ~2019-05-09 | XMS | Encounter Summary ---
Demographics + + + | Address | [address] | | | [place] [address] | + + + | Home Phone [...] Providers + +------+ + | Care Compensation Advisor Name | Role | Phone | + +------+ + PCP | Unavailable | + +------+ + Encounter Details +--------+ + + + + | Date | Type | Department | Care Team | Description | +--------+ + + + + | 06/26/ | Hospital | [facility] | Conversion | End stage renal | | 2015 | Encounter | CENTER CV INTRA OP | Transaction, | disease (HCC); | | | | [address] | Provider Unknown | Mechanical | | | | [place], [place] | [phone] | complication of | | | | [address] | | other vascular | | | | [phone] | Ziyad Russ, | device, implant, and | | | | | [address] | graft (HCC) | | | | | [address] [place], [place] | | | | | | [address] | | | | | | | [...] Note by Nedra Long RN at 06/26/14 9768 Author: Nedra Long RN Service: (none) Author Type: Registered Nurse Filed: 06/26/14 7501 Date of Service: 06/26/141302 Status: Signed Type Soldering Machine Tender: Nedra Long RN (Registered Nurse) Pt tolerated procedure well. Pt returned to holding room, [facility]. Pt provided with juice and c rackers and tolerated well. Discharge education reviewed with patient and handout given. Pt verbalized understanding and voiced no further questions at this time. Pt discharging to vt ivate home with friend to provide transportation. Nedra Long RN docume nted in this encounter Plan of Treatment +--------+---------+ + + + | Date | Type | Specialty | Care Team | Description | +--------+---------+ + + + | 05/20/ | Office | Nephrology | Alexx Gutierrez MD | | | 2020 | Visit | | [address] [facility] | | | | | | [address] [place] | | | | | | [address] | | | | | | | [...] hemodynamic | | | and anatomic results. [id number], [address], [address] Electronically | | | signed by Ziyad [...] conscious sedation | | | and independent detention supervision performed throughout the | | | [...] needle and | | | exchanged for 4-Pakistani micropuncture sheath. Initial fistula | | | pressure was obtained and fistulogram obtained from the left cubital | | | fossa to the right atrium. Given the tandem stenosis in mid and | | | distal left cephalic vein, I decided to perform angioplasty of the | | | venous lesions. 4-Pakistani micropuncture sheath was exchanged for | | | 6-Pakistani short sheath over a 0.035, angled Glidewire. [...] Manoj Weiss Conversion - 12/28/2018 2:18 PM [facility] | | FISTULAGRAM06/26/2014 1:05 PM HISTORY:54 years. [...] | | adequate conscious sedation and independent detention supervision performed | | throughout the procedure. [...] | | micropuncture needle and exchanged for 4-Pakistani micropuncture sheath. Initial fistula | | pressure was obtained and fistulogram obtained from the left cubital fossa to the right | | atrium. Given the tandem stenosis in mid and distal left cephalic vein, I decided to | | perform angioplasty of the venous lesions. 4-Pakistani micropuncture sheath was exchanged | | for 6-Pakistani short sheath over a 0.035, angled Glidewire. [...] good hemodynamic and | | anatomic results. 44248, 21279, 91446 Electronically signed by Ziyad Russ MD on | | 06/26/2014 3:20 PM | |3. Successful angioplasty the mid and distal left cephalic venous stenosis with no residua l stenosis. | | | |IMPRESSION: | |1. Successful left brachycephalic fissure gram and angioplasty the mid and distal left cep halic venous stenosis with good hemodynamic and anatomic results. | | | |21677, 11852, 22843 | | | | | + + [...] hemodynamic | | | and anatomic results. 53165, 98756, 34802 Electronically | | | signed by Ziyad [...] conscious sedation | | | and independent detention supervision performed throughout the | | | [...] needle and | | | exchanged for 4-Pakistani micropuncture sheath. Initial fistula | | | pressure was obtained and fistulogram obtained from the left cubital | | | fossa to the right atrium. Given the tandem stenosis in mid and | | | distal left cephalic vein, I decided to perform angioplasty of the | | | venous lesions. 4-Pakistani micropuncture sheath was exchanged for | | | 6-Pakistani short sheath over a 0.035, angled Glidewire. [...] | | adequate conscious sedation and independent detention supervision performed | | throughout the procedure. [...] | | micropuncture needle and exchanged for 4-Pakistani micropuncture sheath. Initial fistula | | pressure was obtained and fistulogram obtained from the left cubital fossa to the right | | atrium. Given the tandem stenosis in mid and distal left cephalic vein, I decided to | | perform angioplasty of the venous lesions. 4-Pakistani micropuncture sheath was exchanged | | for 6-Pakistani short sheath over a 0.035, angled Glidewire. [...] good hemodynamic and | | anatomic results. 81518, 36690, 92314 Electronically signed by Ziyad Russ MD on | | 06/26/2014 3:20 PM | |3. Successful angioplasty the mid and distal left cephalic venous stenosis with no residua l stenosis. | | | |IMPRESSION: | |1. Successful left brachycephalic fissure gram and angioplasty the mid and distal left cep halic venous stenosis with good hemodynamic and anatomic results. | | | |88755, 77830, 23745 | | | | | + + documented in this encounter Visit Diagnoses + + | Diagnosis | + + | End stage renal disease (HCC) End stage renal disease | + + | Mechanical complication of other vascular device, implant, and graft | + + documented in this encounter"
--- OUTSIDE RECORDS SUMMARY | ~2019-05-09 | XMS | Encounter Summary ---
Demographics + + + | Address | [address] | | | [place] [address] | + + + | Home Phone | | + + + | Preferred Language | Unknown | + + + | Marital Status | Unknown | + + + | Congregation Affiliation [...] Team Providers + +------+ + | Care Furs Salesperson Name | Role | Phone | + +------+ + | Oziel Michael MD | PCP | | + +------+ + Encounter Details +--------+ + + + + | Date | Type | Department | Care Team | Description | +--------+ + + + + | 06/01/ | Orders Only | [facility] | Conversion | | | 2018 | | NEPHROLOGY [place] | Transaction, | | | | | [address] | Provider Unknown | | | | | [address] [place], [place] | | | | | | [address] | (Fax) | | | | | [phone] | | | +--------+ + + + [...] | | | | | | [address] [place], [place] | | | | | | [address] | | | | | | | [...]
--- OUTSIDE RECORDS SUMMARY | ~2019-05-09 | XMS | Encounter Summary ---
Demographics + + + | Address | [address] | | | [place] [address] | + + + | Home Phone [...] Team Providers + +------+ + | Care Legal File Clerk Name | Role | Phone | + +------+ + | Oziel Michael MD | PCP | | + +------+ + Encounter Details +--------+ + + + + | Date | Type | Department | Care Team | Description | +--------+ + + + + | 01/04/ | Orders Only | [facility] | Alexx Gutierrez MD | | | 2017 | | NEPRHOLOGY [place] | [address] | | | | | [address] | [address] [place], [place] | | | | | [address] [place], [place] | [address] | | | | | [address] | | | | | | [phone] | | | +--------+ + + + [...] | | | | | | [address] [place], [place] | | | | | | [address] | | | | | | | [...]
--- OUTSIDE RECORDS SUMMARY | ~2019-05-09 | XMS | Encounter Summary ---
Demographics + + + | Address | [address] | | | [place] [address] | + + + | Home Phone [...] + +------+ + | Care Director Of Anesthesia Services Name | Role | Phone | + +------+ + PCP | Unavailable | + +------+ + Encounter Details +--------+ + + + + | Date | Type | Department | Care Team | Description | +--------+ + + + + | 10/10/ | Hospital | [facility] | Gina Cabello | Unspecified | | 2010 - | Encounter | [facility] | MD Gita [address] | essential | | | | INTENSIVE CARE UNIT | [address] | hypertension; | | 10/17/ | | [address] | [place], [place] | Unspecified iron | | 2010 | | [place], [place] | [address] | deficiency anemia; | | | | [address] | [phone] | Gross hematuria; | | | | [phone] | | Cyst of kidney, | | | | | Yulissa Andre MD | acquired; Other | | | | | [address] | Chronic Pulmonary | | | | | [place] [address] | Heart Diseases | | | | | [phone] | ([facility]); Morbid | | | | | | obesity ([facility]); Hx of | | | | | | past noncompliance; | | | | | | Encntr long-term | | | | | | NSAID use; BMI | | | | | | 31.0-31.9,Adult; | | | | | | Unspecified renal | | | | | | failure; Mal hy kid | | | | | | w cr kid V ([facility]); | | | | | | End stage renal | | | | | | disease ([facility]); | | | | | | Rhabdomyolysis; [...] 2020 | Visit | | [address] [facility] | | | | | | [address] | | | | | | [address] | | | | | | | [...] Performed At | + + + | [facility] [address] Ph: | | | Patient Name: NIK MA Date of : | | | 1960 Medical Record: [id number] Account: [id number] | | | Exam Date/Time: 10/12/2010 19:50 Ordering | | | Physician: GINA CABELLO Order Detail: [id number] Exam Description: | | | [facility] | | | | | | [facility] 10/12/2010 7:50 PM [...] | | [facility] | | [facility] [address] | | | | | | Patient Name: NIK MA | | Date of : 1960 | | Medical Record: [id number] | | Account: [id number] | | | | | | Exam [...] Performed At | + + + | [facility] [address] Ph: | | | Patient Name: NIK MA Date of : | | | 1960 Medical Record: [id number] Account: [id number] | | | Exam Date/Time: 10/12/2010 09:00 [...] timeout was performed. Patient positioning: Prone. Axial metal control worker | | | images were obtained through [...] | | [facility] | | [facility] [address] | | | | | | Patient Name: NIK MA | | Date of : 1960 | | Medical Record: [id number] | | Account: [id number] | | | | | | Exam [...] | Patient positioning: Prone. | | Axial metal control worker images were obtained through region of interest [...] that was | | | non-reportable in [facility] system. | | + + + + + | Procedure Note | + + | Manoj Weiss Conversion - 01/05/2019 5:11 PM PDT See medical record for report. This is | | a converted record that was non-reportable in [facility] system. | + + IR Placement Tunneled CV Cath (10/12/2010 4:18 PM PDT) + + | Specimen | + + | | + + + + + | Narrative | Performed At | + + + | [facility] [id number] Ph: | | | Patient Name: NIK MA Date of : | | | 1960 Medical Record: [id number] Account: [id number] | | | Exam Date/Time: 10/12/2010 07:00 [...] jugular vein. 3. Placement of 19 cm, 14.5-Syrian | | | dual-lumen tunneled palindrome hemodialysis [...] and | | | independent halfway supervision of the conscious sedation was | [...] | | Upper chest radiograph shows dual-lumen, 14.5-Syrian, 19-cm, | | | tunneled dialysis catheter [...] and | | | exchanged for a 4-Syrian micropuncture sheath over a 0.018 wire. | | | Skin in the infraclavicular region was infiltrated with 1% | | | lidocaine and a 5-mm skin incision was made. A 14.5-Syrian, | | | dual-lumen, 19-cm tunneled hemodialysis catheter was placed a | | | subcutaneous tunnel using a metallic tunneler. The 4-Syrian sheath | | | was exchanged for a 0.035, 3-mm J-wire with its tip in the right | | | atrium under fluoroscopy guidance. The skin and subcutaneous tract | | | was dilated using at 12 and 14-Syrian facial dilators. A 15-Syrian | | | peel-away sheath was placed [...] Successful placement of a | | | 14.5-Syrian dual-lumen 19-cm tunneled hemodialysis catheter with its | | | tip in the upper portion of the right atrium without incidence. | | | | | + + + + + | Procedure Note | + + | Manoj Weiss - 01/05/2019 5:11 PM PDT | | [facility] | | [facility] [address] | | | | | | Patient Name: NIK MA | | Date of : 1960 | | Medical Record: [id number] | | Account: [id number] | | | | | | Exam [...] | | 3. Placement of 19 cm, 14.5-Syrian dual-lumen tunneled palindrome | | hemodialysis catheter [...] sedation and | | independent halfway supervision of the conscious sedation was | [...] | 3. Upper chest radiograph shows dual-lumen, 14.5-Syrian, 19-cm, | | tunneled dialysis catheter with [...] needle | | and exchanged for a 4-Syrian micropuncture sheath over a 0.018 wire. Skin | | in the infraclavicular region was infiltrated with 1% lidocaine and a 5-mm | | skin incision was made. A 14.5-Syrian, dual-lumen, 19-cm tunneled | | hemodialysis catheter was placed a subcutaneous tunnel using a metallic | | tunneler. The 4-Syrian sheath was exchanged for a 0.035, 3-mm J-wire with | | its tip in the right atrium under fluoroscopy guidance. The skin and | | subcutaneous tract was dilated using at 12 and 14-Syrian facial dilators. | | A 15-Syrian peel-away sheath was placed over the wire [...] | | 2. Successful placement of a 14.5-Syrian dual-lumen 19-cm tunneled | | hemodialysis catheter with its tip in the upper portion of the right atrium | | without incidence. | | | | | + + XR Chest 1 Vw (10/11/2010 5:46 AM PDT) + + | Specimen | + + | | + + + + + | Narrative | Performed At | + + + | [facility] [id number] Ph: | | | Patient Name: NIK MA Date of : | | | 1960 Medical Record: [id number] Account: [id number] | | | Exam Date/Time: 10/11/2010 05:23 [...] | | [facility] | | [facility] [address] | | | | | | Patient Name: NIK MA | | Date of : 1960 | | Medical Record: [id number] | | Account: [id number] | | | | | | Exam [...] Performed At | + + + | [place] [address] | | | Patient Name: NIK MA Date of : | | | 1960 Medical Record: [id number] Account: [id number] | | | Exam Date/Time: 10/10/2010 08:25 [...] | A Micheal: 0.35 m/s TV Dec [place]: 3.33 m/s2 TV Dec Time: | | | 188.76 ms TV E Micheal: 0.62 m/s TV E/A Ratio: 1.78 | | | Poleyard Supervisor: JOHNNY Authenticated by: Izabel Mays MD Report Date/Time: | | | 10-10-2010 13:11:33 | | + + + + + | Procedure Note | + + | Abhishek Rad Conversion - 01/05/2019 5:11 PM [facility] | | [place], [place] [address]Td: Patient Name: NIK MADate of : | | 1960Medical Record: [id number]: [id number] | | Date/Time: 10/10/2010 08:25Performing Physician: Izabel [...] (A-L): 45.71 ml/m2LAAs | | A2C: 23.14 [id number] A-L A2C: 88.57 mlLALs A2C: 5.13 cmLAAs A4C: 25.08 [id number] | | A-L A4C: 81.76 mlLALs A4C: [...] Vmax: 2.00 cm2AVA (VTI): | | 2.01 [id number] Dopp: 3.28 l/[id number] Dopp: 6.90 l/minHR: 99.58 BPMLVOT maxPG: | [...] 0.75 m/sMV VTI: 26.86 cmMVA (VTI): 2.58 [id number] e': 0.07 | | m/sSeptal E/e': 21.69Lateral [...] 4.07 m/sTV A Micheal: 0.35 m/sTV Dec [place]: 3.33 m/s2TV Dec Time: | | 188.76 msTV E Micheal: 0.62 m/sTV E/A Ratio: 1.78 Poleyard Supervisor: SHEAuthenticated by: Izabel | | Davon MDReport [...] A Micheal: 0.35 m/s | |TV Dec [place]: 3.33 m/s2 | |TV Dec Time: 188.76 ms | |TV E Micheal: 0.62 m/s | |TV E/A Ratio: 1.78 | | | |Poleyard Supervisor: MECCAW | |Authenticated by: Izabel Mays MD | |Report Date/Time: 10-10-2010 13:11:33 | + + US Renal Limited (10/10/2010 7:41 AM PDT) + + | Specimen | + + | | + + + + + | Narrative | Performed At | + + + | [facility] [id number] Ph: | | | Patient Name: NIK MA Date of : | | | 1960 Medical Record: [id number] Account: [id number] | | | Exam Date/Time: 10/10/2010 06:00 [...] | | [facility] | | [facility] [address] | | | | | | Patient Name: NIK MA | | Date of : 1960 | | Medical Record: [id number] | | Account: [id number] | | | | | | Exam [...] Performed At | + + + | [facility] [id number] Ph: | | | Patient Name: NIK MA Date of : | | | 1960 Medical Record: [id number] Account: [id number] | | | Exam Date/Time: 10/10/2010 03:02 Ordering | | | Physician: FARHAD OCHOA Order Detail: [id number] Exam Description: | | | CT CHEST [...] | | [facility] | | [facility] [address] | | | | | | Patient Name: NIK MA | | Date of : 1960 | | Medical Record: [id number] | | Account: [id number] | | | | | | Exam [...] Performed At | + + + | [facility] [address] Ph: | | | Patient Name: NIK MA Date of : | | | 1960 Medical Record: [id number] Account: [id number] | | | Exam Date/Time: 10/10/2010 02:12 Ordering | | | Physician: FARHAD OCHOA Order Detail: [id number] Exam Description: | | | XR CHEST [...] | | [facility] | | [facility] [address] | | | | | | Patient Name: NIK MA | | Date of : 1960 | | Medical Record: [id number] | | Account: [id number] | | | | | | Exam [...]
--- OUTSIDE RECORDS SUMMARY | ~2019-05-09 | XMS | Encounter Summary ---
Demographics + + + | Address | [address] | | | [place] [address] | + + + | Home Phone [...] Team Providers + +------+ + | Care Gasoline Tractor Operator Name | Role | Phone | + +------+ + | Oziel Micahel MD | PCP | | + +------+ + Encounter Details +--------+ + + + + | Date | Type | Department | Care Team | Description | +--------+ + + + + | 05/20/ | Orders Only | [facility] | Conversion | | | 2016 | | NEPHR[facility]Y [facility] | Transaction, | | | | | [address] | Provider Unknown | | | | | [address] [place], [place] | | | | | | [address] | (Fax) | | | | | [phone] | | | +--------+ + + + [...] | | | | | | [address] [place], [place] | | | | | | [address] | | | | | | | [...] - 1.030 | EXTERNAL | | | [facility] | | | LAB | | + [...] | | | LAB | | | [facility] | | | | | + + [...]
--- OUTSIDE RECORDS SUMMARY | ~2019-05-09 | XMS | Encounter Summary ---
Demographics + + + | Address | [address] | | | [place] [address] | + + + | Home Phone [...] Team Providers + +------+ + | Care Immigration Inspector Name | Role | Phone | + +------+ + PCP | Unavailable | + +------+ + Encounter Details +--------+ + + + + | Date | Type | Department | Care Team | Description | +--------+ + + + + | 09/04/ | Orders Only | [facility] | Conversion | | | 2018 | | NEPHR[facility]Y [facility] | Transaction, | | | | | [address] | Provider Unknown | | | | | [address] [place], [place] | | | | | | [address] | (Fax) | | | | | [phone] | | | +--------+ + + + [...] | | | | | | [address] [place], [place] | | | | | | [address] | | | | | | | [...]
[~2019-05-09 22:13] MED LIST changes: +TOPROL XL100 MG PO
[2019-05-09] MEDS ORDERED: LISINOPRIL20 MG PO (22:39)
[2019-05-09] MEDS ORDERED: VITAMIN D350 MCG PO (22:41)
[2019-05-09] MEDS ORDERED: SLOW-MAG71.5 MG PO (22:42)
--- NOTE | 2019-05-10 01:35 | NUR ---
pt ARRIVED ON FLOOR VIA STRETCHER. TRANSFERRED SELF FROM STRETCHER TO BED. VITALS DONE. ORIENTED TO ROOM AND UNIT.
--- NOTE | 2019-05-10 02:19 | NUR ---
BLOOD GLUCOSE HIGH, GREATER THAN 600. ASSESSMENT DONE. pt RESTING IN BED. RATED PAIN 5/10 DUE TO LEG CRAMPS. IVF INFUSING. EDUCATED ON PLAN OF CARE AND MEDICATIONS. CALL LIGHT WITHIN REACH.
--- NOTE | 2019-05-10 02:50 | NUR ---
INSULIN GTT MIXED BY PRIMING MACHINE OPERATOR AND INFUSING PER ROUTINE ORDERS. CALL LIGHT WITHIN REACH.
--- NOTE | 2019-05-10 03:15 | NUR ---
CBG READING HIGH. NO CHANGES TO INSULIN DRIP PER ORDERS.
--- NOTE | 2019-05-10 03:35 | NUR ---
pt UP TO VOID, STEADY ON FEET. BACK TO BED. DENIES LEG CRAMPS AT THIS TIME. WATER PROVIDED. NO FURTHER REQUESTS. CALL LIGHT WITHIN REACH.
--- NOTE | 2019-05-10 03:42 | NUR ---
VERIFIED NONROUTINE INSULIN GTT ORDERS [facility] DR. SANDOVAL. PT WILL REMAIN AT 6 UNITS/HR. SEE NURSE NOTIFY FOR DETAILED ORDER.
--- NOTE | 2019-05-10 04:22 | NUR ---
CBG >600. INSULIN GTT AT 6UNITS/HR PER ORDERS.
--- NOTE | 2019-05-10 05:05 | NUR ---
CBG 470. NO CHANGES TO INSULIN DRIP PER ORDERS.
--- NOTE | 2019-05-10 06:04 | NUR ---
CBG 431. NO CHANGE TO INSULIN GTT PER ORDERS.
--- NOTE | 2019-05-10 06:34 | NUR ---
NOTIFIED OF pt's CURRENT BLOOD SUGAR. ALSO NOTED BMP WAS NOT ORDERED FOR TODAY, ORDERED THIS LAB FOR THIS MORNING, NEW ORDER ENTERED. NO CHANGES TO INSULIN DRIP AT THIS TIME.
--- NOTE | 2019-05-10 07:05 | NUR ---
CBG 287. INSULIN GTT TITRATED TO 4.2 PER ORDERS, VERIFIED BY SECOND RN. pt HAVING MULTIPLE EPISODES OF PVC'S AND SVT. MD NOTIFIED. MD REQUESTED MORNING CARDIAC MEDS BE GIVEN NOW. MEDICATIONS GIVEN (SEE MAR). pt DENIED SOB AND CHEST PAIN. STATED "I FEEL NORMAL, I'M READY TO GO HOME" EDUCATED ON INSULIN AND BLOOD SUGAR. NO REQUESTS AT THIS TIME. CALL LIGHT WITHIN REACH.
--- NOTE | 2019-05-10 08:00 | NUR ---
INSULIN DRIP TITRATED TO 3.4 UNITS/HR FOR BLOOD GLUCOSE OF 236 PER PROTOCOL.
--- NOTE | 2019-05-10 08:24 | NUR ---
IV SITE IS INTACT, NO REDNESS OR SWELLING NOTED, FLUIDS INFUSE EASILY. PT DENIES PAIN AT SITE. PT DENIES PAIN, NAUSEA, AND SOB IN GENERAL. PT REPORTS SOME DISTURBANCE WITH VISION "BLURRY", REPORTS THIS TO BE ONGOING FOR THE LAST 3 WEEKS. PT IS ALERT AND ORIENTED X4, CALM AND APPROPRIATE.
[2019-05-10] MEDS ORDERED: LISINOPRIL40 MG PO (08:43)
--- NOTE | 2019-05-10 09:00 | NUR ---
INSULIN DRIP TITRATED TO 2.8 UNITS/HR FOR BLOOD GLUCOSE OF 211 PER PROTOCOL.
--- NOTE | 2019-05-10 09:06 | NUR ---
Medications reconciled using RX bottles, RX records and patient and caregiver interview.
--- NOTE | 2019-05-10 09:40 | NUR ---
PT GIVEN HIS LONG ACTING INSULIN, SOME EDUCATION PROVIDED.
--- NOTE | 2019-05-10 09:48 | NUR ---
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 Friends daughter is his emergency contact. Denies use of DME. States he was diagnosed with diabetes a while ago. Does not check his blood sugar. States he is aware of what he should eat for diabets. Plans on going home after completion of diabetic education and when BS has stablized.
--- NOTE | 2019-05-10 10:00 | NUR ---
INSULIN DRIP REMAINS AT 2.8 UNITS/HR PER PROTOCOL FOR BLOOD GLUCOSE OF 214.
--- NOTE | 2019-05-10 10:40 | NUR ---
INSULIN DRIP OFF AT THIS TIME. PT IS ALERT AND ORIENTED X4
--- NOTE | 2019-05-10 12:20 | NUR ---
PT IS ALERT, ORIENTED AND SEEMED PLEASED TO VISIT. PT STATED THAT HE IS DOING SO MUCH BETTER. MENTIONED THAT HE WAS SCARED, BUT REALLY RELIEVED NOW. HAD GOOD VISIT, FRIEND CAME TO CHECK ON PT. GAVE BLESSING, AND WILL FOLLOW NEEDED
--- NOTE | 2019-05-10 12:24 | NUR ---
PT UP OUT OF BED AMBULATED TO THE BATHROOM WITH ONE PERSON STAND BY ASSIST. PT ABLE TO HAVE BM AND VOID INTO URINAL. PT BRUSHED OWN TEETH. ALL LINENS CHANGED. PT AMBULATES TO THE CHAIR. CALL LIGHT IS WITHIN REACH. PT DENIES PAIN, NAUSEA, AND SOB AT THIS TIME. PT REMANINS ALERT AND ORIENTED X4. IV SITE IS INTACT, NO REDNESS OR SWELLING NOTED, FLUIDS INFUSE EASILY. VITALS ARE WNL. PT HAS MENU AND PHONE IS ABLE TO ORDER FOOD ON HIS OWN.
--- NOTE | 2019-05-10 14:04 | NUR ---
MACHINE INSTALLER IS NOT IN AGAIN UNTIL May.16. SHE HAS BEEN MEETING WITH RERE AN OUTPATIENT. A FOLLOW-UP APPOINTMENT IS PLANNED FOR JULY 03, 2019. HIS LAT AIC WAS 9.3 ON 12/14/18. PATIENT IS TIRED TODAY, BUT WAS ABLE TO TALK TO ME ABOUT HIS EATING HABITS. HE LIVES WITH AN OLDER LADY, ROSALINO'S MOM. HE HAS NOT BEEN CHECKING HIS BLOOD SUGAR AT ALL. HE HAS A GLUCOMETER. HE EATS CHEERIOS OR RAISIN BRAN WITH 2% MILK FOR BREAKFAST. SOMETIMES HE HAS EGGS AND SAUSAGE AND OJ OR AJ. BETWEEN BKFST AND LUNCH HE MIGHT SNACK ON A FEW GRAPES, BLUEBERRIES OR TOMATOES. LUNCH IS EITHER A FAST FOOD HAMBURGER OR THE LADY HE LIVES WITH HAS A CAREGIVER WHO WILL MAKE AN EGG SALAD OR TUNA SALAD SANDWICH FOR HIM. ROSALINO BRINGS DINNER. RERE DOES NOT DO ANY OF HIS OWN GROCERY SHOPPING OR COOKING. THE LADY'S CAREGIVER WILL DO THE GROCERY SHOPPING. RERE IS NOT COUNTING CARBS. 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 YESTERDAY, HE DRANK 3 CANS OF REGULAR POP BECAUSE HE WAS TIRED AND HAD NO ENERGY. SOUNDS LIKE THIS CAREGIVER PERSON AND ROSALINO MAY NEED SOME DIET EDUCATION WELL SINCE THEY ARE PROVIDING 2 OUT OF 3 MEALS EACH DAY. I HELPED PATIENT ORDER LUNCH WHICH WAS A GOOD EDUCATION SESSION ON CARBOHYDRATES. SPOKE WITH NURSING ABOUT HIS PLAN TO FOLLOW UP WITH MACHINE INSTALLER. PATIENT MAY GO HOME ON INSULIN. WILL CONTINUE TO MONITOR.
--- NOTE | 2019-05-10 14:36 | NUR ---
PT UP AMBULATING TO THE BATHROOM, PT ABLE TO WALK INDEPENDENTLY. PT HR CONVERTS IN AND OUT OF SVT DURING PHYSICAL EXERTION. PT DENIES FEELING HEART RACING, SOB, OR NAUSEATED. PT HAD BOWEL MOVEMENT WHILE UP IN BATHROOM. PT AMBULATES BACK TO THE CHAIR, ONCE SEATED HR RETURNS TO SINUS RHYTHM.
--- NOTE | 2019-05-10 17:24 | NUR ---
PT SAYS HE APPRECIATES THIS INFORMATION BUT IS FEELING VERY OVERWHELMED AT THIS TIME. RN IN TO ASSIST PT IN CHECKING HIS OWN BLOOD SUGAR. INFORMATION REGARDING INSULIN ADMINISTRATION AND DIABETES INFORMATION--NUTRITION, WHAT IS DIABETES. PT STATING ALOT OF [facility], WILL CONTINUE TO FOLLOW PT/ OR CALL HIM OR KEATON MCINTYRE [phone]. RERE STATES THIS IS A GOOD IDEA.
--- NOTE | 2019-05-10 17:45 | NUR ---
IV SITE INTACT, NO REDNESS OR SWELLING NOTED, FLUIDS AND FLUSHES INFUSE EASILY. PT DENIES PAIN AT THE SITE. PT IS ALERT AND ORIENTED X4. PT RESPONSIVE TO EDUCATION PROVIDED, PT ABLE TO GIVE HIS OWN INSULIN SHOT IN HIS ABD FOLLOWING INSTRUCTION. PT HAS FAMILY AT THE BEDSIDE. VITALS WNL. PT DENIES PAIN, NAUSEA, AND SOB.
--- NOTE | 2019-05-10 20:00 | NUR ---
Pt up in chair and attempting to disconnect cords to use restroom, RN in room, reinforced safety and fall precautions, advised to call. Pt assisted to restroom, void 250 ml sergey urine, back to bed. Occasional nonsustained bursts of SVT noted on monitor. Lungs clear throguhout and on room air. Bowel tones active, denies nausea, reports decreased intake. ingetumentary grossly intact. Denies N/T to extremities. Denies pain. No edema. Perpherial pulses +2 in up and lower exremities. Iv site site flushed and patent. AAOx4. Denies other needs. Call light within reach.
--- NOTE | 2019-05-10 21:43 | NUR ---
Education provided on obtaining blood sugar, pt verbalized back instructions, pt able to to obtain cbg with minimal assistance. Education provided on administering insulin, site selection, cleansing site, and disposing needles, pt verbalized instructions back. Pt able to give insulin with no assistance. Education provided on s/sx hypoglycemia. All questions answered. Denies other needs. Family at bedside. Call light within reach.
--- NOTE | 2019-05-10 23:25 | NUR ---
SVT AND VTACH NOTED ON MONITOR. PT ASYMPTOMATIC. UPDATED PROVIDER. NO NEW ORDERS. WILL CONTINUE MONITOR.
--- NOTE | 2019-05-11 00:30 | NUR ---
Pt continues to have ectopy and burst of svt, lopressor to be given. No other acute changes to assessment. Pt remains AAOx4. Call light within reach.
--- NOTE | 2019-05-11 02:48 | NUR ---
Rounding on pt, pt resting in bed with eyes closed, respirations even and unlabored, spo2 92% on Ra. HR 82 sinus rhythm with less ectopy and svt.
--- NOTE | 2019-05-11 06:43 | NUR ---
NOTIFIED DR. EPPS OF 12 HR URINE OUTPUT OF 390 MLS AND NO AM LAB ORDERS, NO NEW ORDERS AT THIS TIME.
--- NOTE | 2019-05-11 07:45 | NUR ---
Patient will use his 3 anti-rejection meds while inpatient, tacrolimus, mycophenolate, and cinacalcet. Please assure that they are returned to him upon discharge
--- NOTE | 2019-05-11 09:42 | NUR ---
PATIENT RESTING IN BED. ASSESSMENT COMPLETE. DIABETIC EDUCATION PROVIDED. PT ABLE TO DO HIS OWN INSULIN INJECTIONS. PT IN GOOD SPIRITS THIS AM. IVF CONTINUE.
--- NOTE | 2019-05-11 09:50 | NUR ---
PATIENT USES CALL LIGHT AND STATES HE ISN'T FEELING WELL AFTER STANDING. HR NOTED TO BE IN THE 160s. DENIES SHORTNESS OF BREATH BUT IS FEELING SOME "ACID REFLUX." PT HAS HISTORY OF SVT; DR. EPPS CALLED PER FELICIANO CURRY AND ORDER REC'D TO GIVE IV DILTIAZEM. PT CONVERTED OUT OF SVT ON HIS OWN PRIOR TO DILT BEING GIVEN. PT ALSO HAD EMESIS OF APPROX 100 ML.
--- NOTE | 2019-05-11 10:05 | NUR ---
PATIENT USED CALL LIGHT. ENTERED ROOM AND PATIENT FOUND SITITNG ON THE EDGE OF THE BED. PATIENT STATED "I WAS STANDING TRYING TO URINATE AND NOW I AM HAVING ACID REFLUX THAT IS REAL BAD". PATIENT NOTED TO BE GRABBING HIS CHEST. PATIENTS HR 150'S-160'S. PATIENT STATED HE IS GOING TO BE SICK. GAVE AN EMESIS BAG AND LEFT THE ROOM TO CALL MD EPSP AND UPDATE OF PATIENTS CONDITION AND HR MAINTAINING 150'S TO 160'S AND SYMPTOMATIC. MD ON HIS WAY TO SEE PATIENT. RT NOTIFIED FOR POTENTIAL EKG. PATIENT DENIES CHEST PRESSURE OR STABBING PAIN, STATES "IT JUST FEELS LIKE ACID REFLUX".
--- NOTE | 2019-05-11 10:20 | NUR ---
MD EPPS HAS BEEN IN WITH PATIENT. PATIENT CONVERTED BACK TO NSR BEFORE CARDIZEM IV WAS ADMINISTERED. MD REMAINED AT THE BEDSIDE TALKING WITH PATIENT AND PLAN OF CARE. 5MG CARDIZEM IV GIVEN AND WILL START PATIENT ON A CARDIZEM GTT. PATIENT FEELING MUCH BETTER NOW. KAYLIN WIGGINS IN ROOM WITH PATIENT WILL CONTINUE TO CLOSELY MONITOR.
--- NOTE | 2019-05-11 10:21 | NUR ---
DR. EPPS AT BEDSIDE. PT FEELING BETTER AFTER HAVING THE EPISODE OF LIGHTHEADNESS AND NAUSEA. HR IN THE 90s. PT TO BE PLACED ON CARDIZEM GTT TO KEEP HR IN THE 60-80s. CONTINUE TO MONITOR.
--- NOTE | 2019-05-11 11:48 | NUR ---
DILTIAZEM GTT STARTED AT 5 MG/HR. PT TOLERATING WELL. HR IN THE 90s. SOME RUNS OF SVT STILL NOTED.
--- NOTE | 2019-05-11 12:46 | NUR ---
PATIENT ABLE TO DRAW UP HIS OWN INSULIN AND GIVE HIMSELF HIS INSULIN FOR LUNCH TIME. MORE EDUCATION PROVIDED ABOUT NEEDING TO CHECK HIS BLOOD SUGARS PRIOR TO EATING LUNCH. PT HAS YET TO VOID, AND BOLUS OF 1000 ML STARTED. IV DILTIZAEM CONTINUES AT 5 MG/HR.
--- NOTE | 2019-05-11 14:50 | NUR ---
PATIENT RESTING, TAKING A NAP AT THIS TIME. IV DILT TURNED UP TO 7.5 MG/HR. CONTINUE TO MONITOR.
--- NOTE | 2019-05-11 17:27 | NUR ---
PATIENT ABLE TO DRAW UP AND GIVE HIMSELF HIS OWN INSULIN AGAIN THIS EVENING. PT WANTING TO KNOW IF HE CAN GO FOR A WALK. PT WILL GET UP TO CHAIR FOR DINNER, AND WE WILL SEE HOW HIS HEART RATE IS WHILE UP MOVING AROUND. CONTINUE TO MONITOR CLOSELY.
--- NOTE | 2019-05-11 18:14 | NUR ---
PATIENT UP TO CHAIR FOR DINNER AND TOLERATED THIS ACTIVITY WELL. PT HAS A VISITOR IN ROOM. HR IN THE 60-70s MOSTLY AND LESS SVT HAS BEEN NOTED.
--- NOTE | 2019-05-11 22:34 | NUR ---
PT RESTING, HR 70'S, SR WITH ONLY OCC PVC'S NOTED. CARDIZEM GTT CONT TO INFUSE
--- NOTE | 2019-05-12 01:55 | NUR ---
PO CARDIZEM AND METOPROLOL GIVEN, RESTING HR 70'S. PT AWAKE IN BED WATCHING TV. CARDIZEM GTT IS NOW OFF. 6UNITS INSULIN PER SS GIVEN. CARDIZEM GTT IS NOW OFF.
--- NOTE | 2019-05-12 09:20 | NUR ---
PATIENT RESTING IN ROOM UPON INITIAL ASSESSMENT. PT UP TO BATHROOM TO VOID AND TOLERATED THIS ACTIVITY WELL. ASSESSMENT COMPLETE. PT WANTING TO TAKE A SHOWER AND GO FOR A WALK THIS AM WHICH WILL BE ARRANGED FOR PATIENT. HEART RATE UNDER GOOD CONTROL, WITH MINIMAL ECTOPY COMPARED TO YESTERDAY. HR REMAINS IN THE 80-90s, SINUS RHYTHM. PT ABLE TO DRAW UP HIS OWN INSULIN AGAIN THIS AM AND ADMINISTER IT TO HIMSELF IN HIS ABDOMEN. PT NOW SITTING IN CHAIR FOR BREAKFAST.
--- NOTE | 2019-05-12 10:59 | NUR ---
DR. EPPS IN TO SEE PATIENT. PATIENT C/O SWELLING OF LEFT UPPER ARM WHRE HIS DIALYSIS FISTULA HAS BEEN. HARDLY PALPABLE THRILL FELT OVER AC AREA, BUT NOTHING UP HIGHER. PT REPORTS JUST NOTICING THIS DIFFERENCE IN THE LAST COUPLE DAYS, BUT ADMITS HE HASN'T BEEN PAYING MUCH ATTENTION TO IT LATELY. PT'S FAMILY AND CAREGIVER FRIEND IS IN ROOM AND VERY EAGER TO HELP PATIENT. FAMILY FRIEND ASKING MANY QUESTIONS ABOUT CERTAIN TYPES OF INSULINS AND CARB RATIOS PATIENT WILL BE ON. WILL CONTINUE TO MONITOR.
--- NOTE | 2019-05-12 11:25 | NUR ---
PATIENT GETTING U/S OF LEFT UPPER ARM AT THIS TIME. CONTINUE TO MONITOR.
--- NOTE | 2019-05-12 11:42 | NUR ---
U/S COMPLETE ON LEFT ARM. U/S TECH REPORTS THAT THE FISTULA DOES SEEM TO BE CLOTTED OFF. DR. EPPS CALLED AND DISCUSSED PRELIMINARY REPORT WITH U/S TECH.
--- NOTE | 2019-05-12 12:27 | NUR ---
PATIENT HAS A FEW VISITORS STILL IN ROOM. PT STATES HE ISN'T HUNGRY FOR LUNCH YET, BUT WOULD LIKE TO JUST REST. PT WILL EAT LUNCH LATER AND THEN WILL GET UP TO WALK IN [place].
--- NOTE | 2019-05-12 14:17 | NUR ---
PATIENT ORDERED LUNCH BUT NOT WANTING TO EAT YET. LUNCH TIME INSULIN HELD UNTIL PATIENT IS HUNGRY AND READY TO EAT. CONTINUE TO MONITOR. PT RESTINIG IN BED. WHEN PATIENT AMBULATED IN [place], HR NEVER MARY ABOUT 91 AND MINIMAL ECTOPY NOTED.
--- NOTE | 2019-05-12 15:41 | NUR ---
PATIENT TO BE TRANSFERRED TO MED/SURG [facility] TELEMETRY. PT GOING TO ROOM 118. REPORT GIVEN TO FELICIANO GRIFFIN. PT CURRENTLY USING RESTROOM INDEPENDENTLY. ALL BELONGINGS TO BE TAKEN WITH PATIENT.
--- NOTE | 2019-05-12 16:36 | NUR ---
PT ARRIVED TO ROOM 118 AMBULATORY. REPORT RECEIVED FROM FELICIANO EWING. PT ALERT AND ORIENTED AND INNO APPERANT DISTRESS. PT DENIES NEEDS OR CONCERNS. ASSESSMENT COMPLETED AND VSS. PT NOW SITTING UP IN BED EATING LUNCH AND WATCHING TV. CALL LIGHT AND H2O IN REACH.
--- NOTE | 2019-05-12 17:57 | NUR ---
PT SITTING UP IN BED WATCHING TV. PT TOLERATED 100% OF HIS DINNER AND DEMONSTRATED CORRECT DOSE OF SLIDING SCALE INSULIN WHICH WAS VERIFIED TO BE CORRECT WITH TWO RN'S; SEE EMAR. PT SELF ADMINISTERED SUB Q INSULIN AND TOLERATED WELL; PT ACTIVATED SAFETY AND NEEDLE DISPOSED IN SHARPS. NO FURTHER NEEDS OR CONCERNS VOICED.
--- NOTE | 2019-05-12 18:02 | NUR ---
PATIENT RESTING IN BED. VISITORS IN ROOM. VITAL SIGNS AND I&O DONE. CALL LIGHT WITHIN REACH. NO OTHER NEEDS AT THIS TIME
--- NOTE | 2019-05-12 19:15 | NUR ---
BEDSIDE REPORT RECEIVED FROM FELICIANO GRIFFIN. pt RESTING IN BED WATCHING TV. PILLOW PROVIDED. CALL LIGHT IN REACH. NO REQUESTS AT THIS TIME.
--- NOTE | 2019-05-12 19:15 | NUR ---
ROUNDED CHARGE. PATIENT IS RESTING IN BED WITH EYES CLOSED, RR 18. CALL LIGHT IN REACH.
--- NOTE | 2019-05-12 22:00 | NUR ---
pt ASSESSMENT COMPLETE. CBG 210. pt SELF ADMINISTERING INSULIN IN ABDOMEN. IV FLUSHED, SL WNL. URINAL EMPTIED. CALL LIGHT IN REACH. SUGAR FREE JELLO AND ICE WATER PROVIDED.
--- NOTE | 2019-05-12 22:17 | NUR ---
VITALS, I&OS AND BLOOD SUGAR DONE AND CHARTED. BEDSIDE TABLE AND CALL LIGHT IN REACH. PT NEEDS NOTHING MORE AT THIS TIME.
--- NOTE | 2019-05-12 22:38 | NUR ---
FOUND A WORKING REMOTE FOR PT.
--- NOTE | 2019-05-13 00:10 | NUR ---
CHECKED ON pt. RESTING IN BED WITH EYES CLOSED. BREATHING VISIBLE. CALL LIGHT AND PERSONAL SUPPLIES IN REACH.
--- NOTE | 2019-05-13 02:45 | NUR ---
CBG 171. pt SELF ADMINISTERING INSULIN PER SS ORDERS. ASSESSMENT COMPLETE. URINAL EMPTIED. CALL LIGHT IN REACH. NO REQUESTS AT THIS TIME.
--- NOTE | 2019-05-13 02:46 | NUR ---
BLOOD SUGAR DONE AND CHARTED. INFORMED HIS RN ELY. BEDSIDE TABLE AND CALL LIGHT IN REACH. PT NEEDS NOTHING AT THIS TIME.
--- NOTE | 2019-05-13 05:04 | NUR ---
pt RESTED WELL THIS SHIFT. INDEPENDENT IN ROOM FOR QS VOIDS. SELF ADMINISTERING INSULIN PER SS. DIABETIC EDUCATION PROVIDED. LEFT ARM ELEVATED, WARM TO TOUCH, EDEMETOUS. USING CALL LIGHT APPROPRIATELY. IV SL.
--- NOTE | 2019-05-13 06:44 | NUR ---
pt AWAKE IN BED. VSS. IMPROVEMENT LEAD AUGUST IN ROOM WRAPPING IV. SUPPLIES PROVIDED FOR SHOWER. pt GIVEN ICE WATER REQUESTED.
--- NOTE | 2019-05-13 07:15 | NUR ---
REPORT RECEIVED FROM FELICIANO LEIGH. PT RESTING IN BED. PIV COVERED FOR SHOWER. PT ASSISTED WITH PLACING BREAKFAST ORDER. PT REPORTS 5/10 PAIN AND STATES HE WILL CONSIDER TYLENOL. NO ADDITIONAL REQUESTS OR COMPLAINTS AT THIS TIME. CALL LIGHT WITHIN REACH.
--- NOTE | 2019-05-13 07:30 | NUR ---
PATIENT RESTING IN BED. CALL LIGHT WITHIN REACH. NO OTHER NEEDS AT THIS TIME
--- NOTE | 2019-05-13 08:25 | NUR ---
PATIENT SITTING UP IN CHAIR. PATIENT ASKS FOR TYLENOL. RN NOTIFIED. CALL LIGHT WITHIN REACH. NO OTHER NEEDS AT THIS TIME
--- NOTE | 2019-05-13 08:33 | NUR ---
CALLED THE LETTERER FOR THE PATIENTS FRIEND, SHE WAS WANTING TO BE INVOLVED DURING THE CONSULT. RAMONA OUR HEAVY EQUIPMENT OPERATOR/PAVER WILL BE HERE AT 9:30 AND SO WILL ROSALINO. CALLED ROSALINO TO VERIFY THE TIME.
--- NOTE | 2019-05-13 08:46 | NUR ---
MORNING ASSESSMENT AND MEDICATIONS DUE. PT GETTING UP FOR SHOWER. PT REPORTS 5/10 PAIN IN L ARM. SWELLING TO ARM WORSENING (ACCORDING TO PT). PT STATES SWELLING IS "MAKING IT HARD TO MOVE MY ARM AND FINGERS." BLOOD SURGAR TAKEN. TYELNOL GIVEN. ASSESSMENT DONE. PT REPORTS CONSTIPATION. NIO PLACED. PT UP FOR SHOWER. REQUESTS TO TAKE MEDICATIONS AFTER SHOWER. NO ADDITIONAL REQUESTS OR COMPLAINTS AT THIS TIME. CALL LIGHT WITHIN REACH.
--- NOTE | 2019-05-13 10:00 | NUR ---
PT FINISHED WITH SHOWER. BOTANY TEACHER AT BEDSIDE FOR EDUCATION. PT AND VERY INVOLVED IN CARE AND TAKING NOTES ON EDUCATION. MEDICATIONS GIVEN. PT DRAWS HIS OWN INSULIN AND SELF ADMINISTERS, WITH MODERATE CONFIDENCE. PT REPORTS PAIN HAS IMPROVED TO 2/10. NO ADDITIONAL REQUESTS OR COMPLAINTS AT THIS TIME. CALL LIGHT WITHIN REACH.
--- NOTE | 2019-05-13 10:53 | NUR ---
PATIENT SITTING UP IN CHAIR. VISITOR IN ROOM. VITAL SIGNS AND I&O DONE. CALL LIGHT WITHIN REACH. NO OTHER NEEDS AT THIS TIME
--- NOTE | 2019-05-13 11:17 | NUR ---
PATIENT MORE ALERT TODAY THAN MONDAY. HE DIDN'T REMEMBER ME TALKING WITH HIM ON MONDAY. KEATON, THE DAUGHTER OF THE LADKimberley JERNIGAN LIVES WITH, IS HERE. SHE REALLY NEEDS TO TALK TO THE MACHINIST HELPER MARINE BECAUSE OF HER QUESTIONS ABOUT INSULIN, BUT RN ARTURO WAS ABLE TO ANSWER PATIENT'S QUESTIONS AND TEACH PATIENT HOW TO DRAW INSULIN, WHICH HE WAS LEARNING AND DOING OVER THE WEEKEND, TOO. I BASICALLY REITERATED THAT FOR MEALS, RERE SHOULD KEEP HIS CARBS ABOUT 60 GRAMS. I REMINDED HIM AND KEATON HOW TO READ FOOD LABELS BY LOOKING AT A BOX OF CHEERIOS AND SPAGHETTI. RIGHT NOW HE IS NOT GIVING INSULIN ACCORDING TO HOW MANY CARBS HE HAS EATEN. HE IS CHECKING HIS BLOOD SUGAR BEFORE EATING, EATING THE MEAL, THEN ADDING UP HIS SHORT ACTING INSULIN TO GIVE HIMSELF AFTER HE EATS. I PROVIDED THEM A INSULIN TO CARB RATIO BOOK FROM THE [employer], WHICH HAS INFO ON WHAT LOW BLOOD SUGAR IS AND HOW TO TREAT IT. KEATON WOULD REALLY LIKE RERE TO GET INSULIN PENS BECAUSE THEY WILL BE EASIER TO USE. I WILL HAVE FELIPA CHEEK, CDE, CALL PATIENT SOON SHE CAN TO SEE ABOUT GETTING HIM IN EARLIER THAN JUNE IF NEEDED. PERHAPS KEATON WOULD LIKE TO COME IN WITH HIM. WILL REMAIN AVAILABLE IF NEEDED.
--- NOTE | 2019-05-13 12:22 | NUR ---
NOON ASSESSMENT DUE. PT VISITING WITH NURSING INFORMATION SYSTEMS COORDINATOR AND FAMILY. PT REPORTS 3/10 PAIN IN ARM AND REPORTS SWELLING TO LUE CONTINUES TO WORSEN. ASSESSMENT DONE. ARM MEASURED AT 43CM (10CM FROM AC) AND 41 CM (AROUND "THE PART THAT HURTS). ZONES MARKED ON LEFT ARM WITH SKIN MARKER. PT ABLE TO CALCULATE AND DRAW UP INSLUIN DOSE WITH SBA FROM THIS RN. PT ADMINISTERS DOES WITH NO ISSUES. ADDITIONAL EDUCATION DONE WITH PT AND FAMILY. PT EATING LUNCH. ICE WATER REFILLED. NO ADDITIONAL REQUESTS OR COMPLAINTS AT THIS TIME. CALL LIGHT WITHIN REACH.
--- NOTE | 2019-05-13 12:28 | NUR ---
PT SITTING IN BED, STEEL SHOT HEADER OPERATOR OANH IN AND VISITORS ON COUCH. STEEL SHOT HEADER OPERATOR TOOK BS, RECORDED IN PTS' CHART. HAD GOOD VISIT WITH PT VISITORS TALKED IN RM. THIS WHOLE EXPERIENCE REALLY FRIGHTENED PT AND HAD GOOD DEBRIEFING. TALKED ABOUT USING COMPRESSION SOCKS, FEW OTHER QUESTIONS PT HAD. FELICIANO MORRIS IN TO CARE FOR PT, HAD PRAYER AND GAVE BLESSING. WILL FOLLOW NEEDED
--- NOTE | 2019-05-13 13:24 | NUR ---
PATIENT SITTING UP IN CHAIR. FRIEND IN ROOM. VITAL SIGNS AND I&O DONE. PATIENT DID NOT VOID DURING THIS PERIOD. RN NOTIFIED. CALL LIGHT WITHIN REACH. NO OTHER NEEDS AT THIS TIME
[2019-05-13] MEDS ORDERED: METOPROLOL SUC200 MG PO (13:37)
[2019-05-13] MEDS ORDERED: DILTIAZEM 24HR240 M1 PO (13:38)
[2019-05-13] MEDS ORDERED: LISINOPRIL40 MG PO ×2 (13:39→15:22)
[2019-05-13] MEDS ORDERED: BASAGLAR K100 UNIT/1 SUB-Q (13:45)
[2019-05-13] MEDS ORDERED: NOVOLOG FL100 UNIT/1 SUB-Q (13:51)
[2019-05-13] MEDS ORDERED: INSULIN PEN NE1 EAC3 MISC (13:53)
--- NOTE | 2019-05-13 14:33 | NUR ---
TALKED WITH PT TODAY REGARDING HIS INSULIN. HE STATES HE HAS A GLUCOMETER AND HAS BEEN CHECKING HIS BLOOD SUGARS FOR ABOUT A YEAR BUT NOT DAILY, NOW HE STATES HE WILL BE WATCHING THEM MUCH CLOSER THAN HE WAS IN THE PAST. HE ALSO HAS BEEN GIVING HIMSELF HIS INSULIN AND STATES HE FEELS COMFORTABLE DOING THIS. HE ALSO SAID HE FEELS COMFORTABLE WITH THE SLIDING SCALE AND WITH HIS DIET WHICH HE SAYS HIS FRIEND KEATON DOES ALL THE COOKING FOR HIM. I TALKED TO HIM ABOUT ME CALLING HIM IN A COUPLE DAYS HE STATES THAT IS OK. I INFORMED HIM THAT HE IS WELCOME TO CALL IF HE HAS ANY QUESTIONS REGARDING HIS DIABETES OR ANYTHING ELSE.
--- NOTE | 2019-05-13 15:00 | NUR ---
Spoke with Nik. He has received education over the last few days and feels he has good understanding of insulin and use. He is wanting a a continuous BS monitoring device. Instructed to speak with his PCP about this. Gave him the phone number for [facility] for when he has a prescription. Let him know they will provide his supplies and get auth from his insurance.He denies other needs or wants for discharge.
[2019-05-13] MEDS ORDERED: GLUCOSE TEST S1 EACH MISC (15:22)
[2019-05-13] MEDS ORDERED: BLOOD GLUCOSE1 EAC1 MISC (15:22)
[2019-05-13] MEDS ORDERED: LANCETS1 EAC4 MISC (15:22)
--- NOTE | 2019-05-13 16:00 | NUR ---
PT READY FOR DISCHRAGE. EXTENSIVE EDUCATION DONE WITH PT REGARDING MEDICATIONS, ADMINISTRATION, DIABETES FOOT CARE, DIABETIC DIET, HOME CARE AND DISCHARGE INSRUCTIONS. PT AND DAUGHTER VERBALIZE UNDERSTANDING OF INSTRUCTIONS, BLOOD SUGAR RECORD KEEPING, AND FOLLOW UP APPOINTMENTS. PT SPEAKING WITH PHARMACIST. PT DRESSES SELF WITH SBA. VITALS TAKEN AND PIV DC'D BY WOUND NURSE. NO ADDITIONAL REQUESTS, COMPLAINTS, OR QUESTIONS. PT WHEELED FROM MED/SURG. ALL BELONGINGS AND MEDICATIONS RETURNED. PTS DAUGHTER ACCOMPANING.
--- NOTE | 2019-05-13 16:00 | NUR ---
IV TAKEN OUT UPON RN REQUEST. IV LOOKED GOOD, CATH INTACT, RN NOTIFIED. CALL LIGHT IN REACH. NO FURTHER NEEDS AT THIS TIME.
== END 2019-05-13 16:20 | disposition home or self-care (01) | DRG 638 ==
LOC: ED 22:13 → MS 05-10 01:13 → CCU 05-10 01:13 → MS 05-12 16:28
PROVIDERS: ADMIT Internal Medicine
DX: E11.65 Type 2 diabetes mellitus with hyperglycemia (principal); Z94.0 Kidney transplant status; I47.1 Supraventricular tachycardia; N17.9 Acute kidney failure, unspecified; I12.9 Hypertensive chronic kidney disease with stage 1 through stage 4 chronic kidney disease, or unspecified chronic kidney disease; E11.22 Type 2 diabetes mellitus with diabetic chronic kidney disease; N18.3 Chronic kidney disease, stage 3 (moderate); N40.0 Benign prostatic hyperplasia without lower urinary tract symptoms; E79.0 Hyperuricemia without signs of inflammatory arthritis and tophaceous disease; Z79.899 Other long term (current) drug therapy; Z79.84 Long term (current) use of oral hypoglycemic drugs; Z79.52 Long term (current) use of 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
CPT/HCPCS: 36415; 51798; 80048; 80053; 80069; 80195; 80197; 81001; 82010; 83036; 83735; 83930; 84100; 85025; 93971; 96361; 96374; 99285-25; J1815; J2405; J3475; J7030; J7042; J7121; J7512

== ENCOUNTER 2021-02-09 13:10 | Emergency (ER) | payer MEDICARE, OTHER ==
[~2021-02-09] VITALS: Ht 172.7 cm; Wt 104.3 kg
[~2021-02-09 13:10] MED LIST changes: +BASAGLAR K100 UNIT/1 SUB-Q; +BLOOD GLUCOSE1 EAC1 MISC; +DILTIAZEM 24HR240 M1 PO; +GLUCOSE TEST S1 EACH MISC; +INSULIN PEN NE1 EAC3 MISC; +LANCETS1 EAC4 MISC; +LISINOPRIL20 MG PO; +LISINOPRIL40 MG PO; +METOPROLOL SUC200 MG PO; +NOVOLOG FL100 UNIT/1 SUB-Q; +SLOW-MAG71.5 MG PO; +VITAMIN D350 MCG PO
--- NOTE | 2021-02-10 06:30 | EKG ---
[facility] [address] [place] [address] Signed Normal sinus rhythm Possible Left atrial enlargement Left ventricular hypertrophy T wave abnormality, consider lateral ischemia Abnormal ECG When compared with ECG of 11-JUN-2018 13:11, premature atrial complexes are no longer present ST now depressed in Lateral leads T wave inversion now evident in Lateral leads Confirmed by JILLIAN SANDOVAL MD ([id number]) on 02/10/2021 6:30:04 AM Electronically Signed By: JILLIAN SANDOVAL MD 02/10/21 0630 PATIENT NAME: RERE WISDOM Electrocardiogram DATE OF : 58 PHYSICIAN: JILLIAN SANDOVAL MD REPORT #: [id number] REPORT IS CONFIDENTIAL AND NOT TO BE RELEASED WITHOUT AUTHORIZATION
== END 2021-02-09 22:35 | disposition short-term general hospital (02) ==
LOC: ED 13:10
DX: U07.1 COVID-19 (principal); I12.9 Hypertensive chronic kidney disease with stage 1 through stage 4 chronic kidney disease, or unspecified chronic kidney disease; E11.22 Type 2 diabetes mellitus with diabetic chronic kidney disease; N18.9 Chronic kidney disease, unspecified; R09.02 Hypoxemia; Z79.4 Long term (current) use of insulin; Z79.899 Other long term (current) drug therapy
CPT/HCPCS: 71045; 80053; 83605; 83735; 83880; 84484; 85025; 93005; 93010; 96374; 96375; 99285-25; J1100; J1815